=== PATIENT | male | born 1940 | race Caucasian/White ===

== ENCOUNTER 2023-08-16 12:56 | Emergency (ER) | payer MEDICARE, OTHER, SELFPAY ==
[2023-08-16] VITALS (25 sets, daily range): BP systolic 128–148; BP diastolic 80–117; PULSE 74–140; RESP 10–26; TEMP 36.6; O2SAT 82–98; BMI 23.8
--- NOTE | 2023-08-16 13:15 | ED_ITS ---
HPI - General Adult General Chief complaint: Chest Pain Stated complaint: CHEST PAIN Time Seen by Provider: 08/16/23 13:15 Source: patient and family Mode of arrival: Wheelchair Limitations: no limitations History of Present Illness HPI narrative: Patient is a 83-year-old male who is presenting to the ER today with chief complaint of centralized chest heaviness that lasted less than 30 minutes with no radiation into the jaw, neck, arms, or straight through to his back. Patient states he has a history of A-fib, also has a Watchman as well. Patient's son is at bedside, he is a good historian. Patient lives at home, patient was being picked up by his son to take him to physical therapy. Patient has been having falls recently. Patient hit his head approximately 5 days ago, patient has a hematoma to the frontal aspect of his head. No tenderness to palpation to the area. Patient only takes a baby aspirin, he no longer takes Plavix or blood thinners. Patient also has stopped taking his blood pressure medication, because he has been orthostatic and patient's blood pressure has been dropping when he stands up. Patient currently has no headache or neck pain. Patient currently has no chest pain or shortness of breath. No nausea or vomiting. Patient did fall approximately 4 to 5 days ago, no obvious injury from that. 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 No recent tr aveling no other acute complaints. Patient is typically in A-fib, All systems are negative except as noted/marked. All systems reviewed and otherwise negative. Nurses note and vital signs reviewed and patient is not hypoxic. General: The patient appears well and in no apparent distress. Patient is resting comfortably on cart. Patient is not toxic, lethargic, or listless patient looks cachectic, fatigued,. Very soft-spoken. Patient's Son is at bedside, he is excellent source of history skin: Warm, dry, no pallor noted. There is no rash noted. No petechiae, purpura. Head: Normocephalic, patient has a palpable hematoma 3 x 2 cm, 0.5 cm raised to the left forehead, not tender, soft, no pain to palpation. Eye: Normal conjunctiva, no drainage, EOMI. PERRL Ears, Nose, Mouth, and Throat: oral mucosa is moist. Nares patent. Mouth without vesicles. Cardiovascular: Irregular irregular Rate and Rhythm, no murmur, gallop, rub. Respiratory: Patient is in no distress, no accessory muscle use, lungs are clear to auscultation, no wheezing, rales or rhonchi Back: non-tender, no CVA tenderness bilaterally to percussion. No CT LS midline pain GI: no tenderness to palpation, no masses appreciated. No rebound, guarding, or rigidity noted. No distention Musculoskeletal: Patient has full range of motion of all of the extremities, no motor, sensory, or focal neurological deficits Neurological: A&O x4, normal speech Psychiatric: Cooperative Related Data Home Medications Medication Instructions Recorded Confirmed alprazolam 1 mg tablet,extended 1 mg PO Q24H 08/16/23 08/16/23 release 24 hr aspirin 81 mg tablet,delayed 81 mg PO DAILY 08/16/23 08/16/23 release atorvastatin 80 mg tablet 80 mg PO DAILY 08/16/23 08/16/23 donepezil 10 mg tablet 10 mg PO DAILY 08/16/23 08/16/23 escitalopram oxalate 10 mg tablet 10 mg PO DAILY 08/16/23 08/16/23 memantine 5 mg tablet 5 mg PO BID 08/16/23 08/16/23 quetiapine 25 mg tablet 50 mg PO .qhs 08/16/23 08/16/23 Allergies Allergy/AdvReac Type Severity Reaction Status Date / Time Sulfa (Sulfonamide Allergy Mild Verified 08/16/23 13:15 Antibiotics) Exam Constitutional Vital Signs, click to edit/add: Last Vital Signs Temp 97.9 F 08/16/23 12:59 Pulse 88 08/16/23 15:14 Resp 17 08/16/23 14:50 BP 140/80 08/16/23 15:14 Pulse Ox 94 L 08/16/23 14:50 O2 Del Method Room Air 08/16/23 12:59 Course Vital Signs Vital signs: Vital Signs Temperature 97.9 F 08/16/23 12:59 Pulse Rate 109 H 08/16/23 12:59 Respiratory Rate 16 08/16/23 12:59 Blood Pressure 140/90 08/16/23 12:59 Pulse Oximetry 97 08/16/23 12:59 Oxygen Delivery Method Room Air 08/16/23 12:59 Temperature 97.9 F 08/16/23 12:59 Pulse Rate 88 08/16/23 15:14 Respiratory Rate 17 08/16/23 14:50 Blood Pressure 140/80 08/16/23 15:14 Pulse Oximetry 94 L 08/16/23 14:50 Oxygen Delivery Method Room Air 08/16/23 12:59 Medical Decision Making MDM Narrative Medical decision making narrative: EKG shows chronic A-fib. Patient currently has no chest pain or shortness of breath. [address] Ramos. He agrees that patient may be discharged if 2 sets of troponins were negative, and patient is feeling better. Patient was orthostatic, patient will be given 1 L of IV fluid initially. Patient's systolic and diastolic both dropped 20/10 respectively, along with 40 point change in heart rate. After the first liter of IV fluid, orthostatics were repeated and patient's vital signs significant improved. Patient feels better after 1 L of IV fluid. Patient will be discharged increase fluids at home, follow-up with cardiology and PCP Critical care time 31 minutes exclusive from separate billable procedures that were performed. The following was considered in the determination of critical care but not limited to the level of medical decision making, intensive cardiac and/or respiratory monitoring, frequent vital sign monitoring, evaluation of laboratory studies, evaluation of radiographic studies, oxygen monitoring, and constant monitoring and speaking to family at bedside. Lab Data Labs: Lab Results 08/16/23 08/16/23 08/16/23 Range/Units 13:11 13:58 14:45 WBC 10.5 (4.0-11.0) 10^3/uL RBC 5.22 (4.70-6.10) 10^6/uL Hgb 15.6 (14.0-18.0) g/dL Hct 47.6 (42.0-54.0) % MCV 91.2 (80.0-94.0) fL MCH 29.9 (25.9-34.0) pg MCHC 32.8 (29.9-35.2) g/dL RDW 13.0 (11.0-15.0) % Plt Count 191 (150-450) 10^3/uL MPV 10.1 (9.5-13.5) fL Neut % (Auto) 65.7 (43.0-75.0) % Lymph % (Auto) 24.9 (20.5-60.0) % [place] % (Auto) 6.2 (1.7-12.0) % Eos % (Auto) 2.2 (0.9-7.0) % Baso % (Auto) 0.4 (0.2-2.0) % Neut # (Auto) 6.9 H (1.4-6.5) 10^3/uL Lymph # (Auto) 2.6 (1.2-3.8) 10^3/uL [place] # (Auto) 0.7 (0.3-0.8) 10^3/uL Eos # (Auto) 0.2 (0.0-0.7) 10^3/uL Baso # (Auto) 0.0 (0.0-0.1) 10^3/uL Abs Immat Gran (auto) 0.06 H (0.00-0.03) 10^3/uL Imm/Tot Granulo (auto) 0.6 H (0.0-0.5) % Sodium 138 (136-145) mmol/L Potassium 3.9 (3.5-5.1) mmol/L Chloride 101 (98-107) mmol/L Carbon Dioxide 29.6 (21.0-32.0) mmol/L Anion Gap 11.3 BUN 13.0 (7.0-18.0) mg/dL Creatinine 1.19 (0.70-1.30) mg/dL Est GFR ( Amer) >60 (>=60) Est GFR (Non-Af Amer) 58 L (>=60) BUN/Creatinine Ratio 10.9 Glucose 84 (74-106) mg/dL Calcium 9.3 (8.5-10.1) mg/dL Total Bilirubin 1.1 H (0.2-1.0) mg/dL AST 15 (15-37) U/L ALT 9 L (16-63) U/L Alkaline Phosphatase 82 (46-116) U/L Troponin I High Sens 5.6 5.9 (4.0-76.1) pg/mL Total Protein 7.0 (6.4-8.2) g/dL Albumin 2.5 L (3.4-5.0) g/dL Globulin 4.5 g/dL Albumin/Globulin Ratio 0.6 ECG Data Attestation: I personally reviewed and interpreted this ECG as follows: (EKG interpretation. Irregular irregular rhythm at 112 beats a minute. Left axis deviation. No acute ST elevation, nonspecific ST changes. Chronic A-fib) Discharge Plan Discharge Chief Complaint: Chest Pain Clinical Impression: Orthostatic hypotension, Chest pain, Dehydration Patient Disposition: Home, Self-Care Time of Disposition Decision: 15:52 Condition: Fair Prescriptions / Home Meds: No Action alprazolam 1 mg tablet extended release 24 hr 1 mg PO Q24H aspirin 81 mg tablet,delayed release (DR/EC) 81 mg PO DAILY atorvastatin 80 mg tablet 80 mg PO DAILY donepezil 10 mg tablet 10 mg PO DAILY escitalopram oxalate 10 mg tablet 10 mg PO DAILY memantine 5 mg tablet 5 mg PO BID quetiapine 25 mg tablet 50 mg PO .qhs Instructions: Chest Pain (ED), Dehydration (ED), Hypotension (ED), Dizziness (ED) Additional Instructions: Continue to increase fluids at home, Gatorade, Powerade, and water. Follow-up with PCP. I did speak to your occupational health coordinator, Dr. Ramos. He agrees if 2 sets of cardiac troponin enzymes are negative, and you are feeling better and has been asymptomatic in the ER, call the office to make an appointment to follow-up in the next week or 2. If symptoms continue return to ER. You were orthostatic hypotensive. 1 L of IV fluids has help correct this. Increase fluids at home Referrals: JC CARR [Primary Care Provider] - 1 week Stand Alone Forms: Portal Instructions
--- NOTE | 2023-08-16 13:26 | XR_ITS ---
The [address] [address] Patient Name: NETTE CAO MRN: [id number] date: 1940 Sex: M Assigned Patient Location: ED.MAIN Current Patient Location: ER Accession/Order Number: [id number] Exam Date: 08/16/2023 14:05 Report Date: 08/16/2023 14:21 At the request of: DUNIA TRIANA Procedure: XR chest 1V EXAM: XR chest 1V HISTORY: chest pain COMPARISON: 07/22/2021 and earlier. TECHNIQUE: AP portable upright chest x-ray. FINDINGS: Lungs clear except for small granuloma left lower lung field and minimal basilar scar atelectasis right lower chest. No consolidation or edema seen. Heart size normal for technique. 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 Cannot exclude aneurysmal dilatation of this portion of the aorta. A silhouette prominent accentuated by magnification. Appears increased from AP chest x-ray 11/23/2020. XR/XR chest 1V IMPRESSION: Lungs without acute process or infiltrate. Prominent descending thoracic aorta appears to be a chronic finding. Cannot exclude aortic dilatation/aneurysm in this area. If this is clinically suspected recommend CT. Cardiac silhouette mildly increased from previous. Electronically authenticated by: PIO NEAL Date: 08/16/2023 14:21
[2023-08-16 13:33] LABS: Basophils Percent Auto 0.4 % (0.2-2.0); Eosinophils Absolute Auto 0.2 10^3/uL (0.0-0.7); Eosinophils Percent Auto 2.2 % (0.9-7.0); Hematocrit 47.6 % (42.0-54.0); Hemoglobin 15.6 g/dL (14.0-18.0); Immature Granulocytes Abs Auto 0.06 10^3/uL (0.00-0.03); Immature Granulocytes Pct Auto 0.6 % (0.0-0.5); Lymphocytes Absolute Auto 2.6 10^3/uL (1.2-3.8); Lymphocytes Percent Auto 24.9 % (20.5-60.0); Mean Corpuscular HGB Conc 32.8 g/dL (29.9-35.2); Mean Corpuscular Hemoglobin 29.9 pg (25.9-34.0); Mean Corpuscular Volume 91.2 fL (80.0-94.0); Mean Platelet Volume 10.1 fL (9.5-13.5); Monocytes Absolute Auto 0.7 10^3/uL (0.3-0.8); Monocytes Percent Auto 6.2 % (1.7-12.0); Neutrophils Absolute Auto 6.9 10^3/uL (1.4-6.5); Neutrophils Percent Auto 65.7 % (43.0-75.0); Platelet Count 191 10^3/uL (150-450); Red Blood Count 5.22 10^6/uL (4.70-6.10); White Blood Count 10.5 10^3/uL (4.0-11.0)
[2023-08-16] MEDS: 0.9 % SODIUM CHLORIDE 1,000 ML 1000 ML IV (14:19)
[2023-08-16 14:21] LABS: Alanine Aminotransferase 9 U/L (16-63); Albumin Globulin Ratio 0.6; Albumin Level 2.5 g/dL (3.4-5.0); Alkaline Phosphatase 82 U/L (46-116); Anion Gap 11.3; Aspartate Amino Transferase 15 U/L (15-37); BUN Creatinine Ratio 10.9; Bilirubin Total 1.1 mg/dL (0.2-1.0); Calcium 9.3 mg/dL (8.5-10.1); Carbon Dioxide 29.6 mmol/L (21.0-32.0); Chloride 101 mmol/L (98-107); Estimated GFR (African America >60 (>=60); Estimated GFR (Non-African Ame 58 (>=60); Globulin 4.5 g/dL; Glucose 84 mg/dL (74-106); Potassium 3.9 mmol/L (3.5-5.1); Sodium 138 mmol/L (136-145); Troponin I High Sensitivity 5.6 pg/mL (4.0-76.1)
--- NOTE | 2023-08-16 15:00 | ECG_ITS ---
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1940 Requested By: JC CARR Order Number: [id number] Reading MD: CARLOS OSCAR Measurements Intervals [place] Rate: 112 P: -12144 [place]: -16889 QRS: -17 QRSD: 82 T: 4 QT: 316 QTc: 382 Interpretive Statements 88655 Atrial fibrillation with rapid ventricular response [address] depression, probably digitalis effect [address] & Twave abnormality, probably digitalis effect 5233 Voltage criteria for LVH 9150 abnormal ECG Compared to ECG 11/23/2020 12:00:08 ST (T wave) deviation now present Early repolarization no longer present Left-axis deviation no longer present Electronically Signed On 08-17-2023 6:06:28 EST by CARLOS OSCAR
[2023-08-16 15:15] LABS: Troponin I High Sensitivity 5.9 pg/mL (4.0-76.1)
== END 2023-08-16 16:12 | disposition home or self-care (01) ==
PROVIDERS: Emergency Provider Emergency Medicine; PCP Family Medicine
DX: E86.0 Dehydration (principal); I95.1 Orthostatic hypotension; R07.9 Chest pain, unspecified; Z91.81 History of falling; Z79.82 Long term (current) use of aspirin; I48.20 Chronic atrial fibrillation, unspecified
CPT/HCPCS: 36415; 71045; 80053; 84484; 85025; 93005; 96360; 99285

== ENCOUNTER 2023-08-22 12:21 | Outpatient (OUT) | payer MEDICARE, OTHER, SELFPAY ==
[2023-08-22 12:53] LABS: Basophils Absolute Auto 0.1 10^3/uL (0.0-0.1); Basophils Percent Auto 0.5 % (0.2-2.0); Eosinophils Absolute Auto 0.5 10^3/uL (0.0-0.7); Eosinophils Percent Auto 3.8 % (0.9-7.0); Hematocrit 44.3 % (42.0-54.0); Hemoglobin 14.3 g/dL (14.0-18.0); Immature Granulocytes Abs Auto 0.13 10^3/uL (0.00-0.03); Immature Granulocytes Pct Auto 1.1 % (0.0-0.5); Lymphocytes Absolute Auto 2.4 10^3/uL (1.2-3.8); Lymphocytes Percent Auto 20.4 % (20.5-60.0); Mean Corpuscular HGB Conc 32.3 g/dL (29.9-35.2); Mean Corpuscular Hemoglobin 29.5 pg (25.9-34.0); Mean Corpuscular Volume 91.5 fL (80.0-94.0); Mean Platelet Volume 8.7 fL (9.5-13.5); Monocytes Absolute Auto 0.7 10^3/uL (0.3-0.8); Monocytes Percent Auto 6.2 % (1.7-12.0); Neutrophils Absolute Auto 8.1 10^3/uL (1.4-6.5); Platelet Count 384 10^3/uL (150-450); Red Blood Count 4.84 10^6/uL (4.70-6.10); Red Cell Distribution Width 13.2 % (11.0-15.0); White Blood Count 11.9 10^3/uL (4.0-11.0)
== END 2023-08-22 12:22 | disposition home or self-care (01) ==
LOC: LAB 12:23
PROVIDERS: PCP Family Medicine; Visit Provider Family Medicine
DX: R53.83 Other fatigue (principal); R63.4 Abnormal weight loss
CPT/HCPCS: 36415; 85025

== ENCOUNTER 2023-08-23 16:49 | Observation (INO) | payer MEDICARE, OTHER, SELFPAY ==
[2023-08-23 16:55] VITALS: BP 145/109; PULSE 83; RESP 18; TEMP 36.8; O2SAT 91; BMI 24.3
--- NOTE | 2023-08-23 17:29 | ECG_ITS ---
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
[2023-08-23] MEDS: 0.9 % SODIUM CHLORIDE 1,000 ML 1000 ML IV (17:42)
[2023-08-23 17:43] VITALS: PULSE 100; RESP 30
[2023-08-23 17:59] LABS: Basophils Absolute Auto 0.1 10^3/uL (0.0-0.1); Basophils Percent Auto 0.8 % (0.2-2.0); Eosinophils Absolute Auto 0.3 10^3/uL (0.0-0.7); Eosinophils Percent Auto 4.4 % (0.9-7.0); Hematocrit 41.4 % (42.0-54.0); Hemoglobin 13.4 g/dL (14.0-18.0); Immature Granulocytes Abs Auto 0.12 10^3/uL (0.00-0.03); Immature Granulocytes Pct Auto 1.5 % (0.0-0.5); Lymphocytes Absolute Auto 1.8 10^3/uL (1.2-3.8); Lymphocytes Percent Auto 23.7 % (20.5-60.0); Mean Corpuscular HGB Conc 32.4 g/dL (29.9-35.2); Mean Corpuscular Hemoglobin 29.5 pg (25.9-34.0); Mean Corpuscular Volume 91.2 fL (80.0-94.0); Mean Platelet Volume 8.6 fL (9.5-13.5); Monocytes Absolute Auto 0.5 10^3/uL (0.3-0.8); Monocytes Percent Auto 6.9 % (1.7-12.0); Neutrophils Absolute Auto 4.9 10^3/uL (1.4-6.5); Neutrophils Percent Auto 62.7 % (43.0-75.0); Platelet Count 318 10^3/uL (150-450); Red Blood Count 4.54 10^6/uL (4.70-6.10); Red Cell Distribution Width 13.1 % (11.0-15.0); White Blood Count 7.8 10^3/uL (4.0-11.0)
[2023-08-23 18:07] LABS: Bilirubin Urine SMALL (NEGATIVE); Blood Urine TRACE-I (NEGATIVE); Clarity Urine CLEAR (CLEAR); Color Urine YELLOW (YELLOW); Glucose Urine UA NEGATIVE (NEGATIVE); Ketones Urine TRACE mg/dL (NEGATIVE); Leukocyte Esterase Urine NEGATIVE (NEGATIVE); Nitrite Urine NEGATIVE (NEGATIVE); Protein Urine 100 mg/dL (NEG/TRACE)
--- NOTE | 2023-08-23 18:12 | XR_ITS ---
The [address] [address] Patient Name: NETTE CAO MRN: [id number] date: 1940 Sex: M Assigned Patient Location: ER Current Patient Location: ER Accession/Order Number: [id number] Exam Date: 08/23/2023 18:00 Report Date: 08/23/2023 18:26 At the request of: ANOOP ERICKSON Procedure: XR chest 1V EXAM: XR chest 1V HISTORY: Weak. COMPARISON: Portable chest radiograph dated 08/16/2023. TECHNIQUE: AP upright portable chest radiograph performed. FINDINGS: The patient is rotated to the right. There is stable mild prominence of the cardiac silhouette. The mediastinal silhouette is slightly more prominent which most likely is accentuated by rotation of the patient to the right. There is stable moderate atheromatous calcification at the aortic arch and a stable tortuous course of the descending thoracic aorta. There is no consolidation, infiltrate, pleural effusion or pulmonary vascular congestion. There is a nipple shadow projecting over the left lower chest. There is no pneumothorax. The bony structures are osteopenic. There is no acute osseous abnormality. XR/XR chest 1V IMPRESSION: There is no acute cardiopulmonary process. Electronically authenticated by: PATTIE KAY Date: 08/23/2023 18:26
--- NOTE | 2023-08-23 18:12 | CT_ITS ---
The [address] [address] Patient Name: NETTE CAO MRN: [id number] date: 1940 Sex: M Assigned Patient Location: ER Current Patient Location: [facility] Accession/Order Number: [id number] Exam Date: 08/23/2023 18:00 Report Date: 08/23/2023 19:00 At the request of: ANOOP ERICKSON Procedure: CT head/brain wo con CT OF THE BRAIN WITHOUT CONTRAST: 08/23/2023 6:00 PM EDT HISTORY: Fell and hit head. TECHNIQUE: Contiguous axially collimated images were obtained through the intracranial compartment, from the vertex through the foramen magnum. Coronal and Sagittal reformatted images were prepared on a separate workstation and reviewed on the PACS for anatomic correlation. No contrast was administered. This CT exam was performed using one or more of the following dose reduction techniques: Automated exposure control, adjustment of the mA and/or kV according to patient size, or use of iterative reconstruction technique. Thin section coronal and sagittal images were reconstructed from the axial data set. All images were reviewed and interpreted. COMPARISON: CT brain without 11/23/2020 FINDINGS: There is subtle punctate hyperdensity posterior left occipital lobe which may reflect some subtle petechial cortical hemorrhage. Follow-up. This is not causing any significant edema or mass effect. No intra-axial or extra-axial hemorrhage seen elsewhere. To the extent of evaluated with noncontrast technique, there is no mass lesion appreciated. There is no mass-effect or shift of midline structures. There is global brain volume loss with prominence of the ventricles and CSF spaces. There is no evidence of hydrocephalus. There is no effacement of the basal cisterns. No evidence of acute ischemia. Patchy white matter low attenuation is nonspecific, but likely related to chronic small vessel ischemic change. There is no evidence of a lacunar infarct. The posterior fossa, brain stem, and fourth ventricle are normal. There is no tonsillar ectopy. Changes of previous extensive calvarial surgery with multiple stefani holes, several in the right 1 left frontal with overlying bone anchor. Correlate with history. Calvarium otherwise intact and unremarkable. No acute fracture. Normal bone mineralization.. The mastoid air cells are well-aerated. The paranasal sinuses are normally aerated. CT/CT head/brain wo con IMPRESSION: 1. Subtle punctate hyperdensity cortex posterior left occipital lobe possibly related to a subtle acute petechial hemorrhage in light of trauma. Recommend follow-up. 2. Multiple remote bilateral frontal stefani holes. No acute osseous findings. 3. Stable chronic senescent changes compared with 11/23/2020 study. Electronically authenticated by: PADILLA BAJWA Date: 08/23/2023 19:00
[2023-08-23 18:16] LABS: Anion Gap 10.3; BUN Creatinine Ratio 13.2; Calcium 8.9 mg/dL (8.5-10.1); Carbon Dioxide 30.8 mmol/L (21.0-32.0); Chloride 100 mmol/L (98-107); Estimated GFR (African America >60 (>=60); Estimated GFR (Non-African Ame >60 (>=60); Glucose 87 mg/dL (74-106); Potassium 4.1 mmol/L (3.5-5.1); Sodium 137 mmol/L (136-145); Troponin I High Sensitivity <4.0 pg/mL (4.0-76.1)
[2023-08-23 18:17] LABS: Bacteria Urine TRACE #/HPF (NONE SEEN); Cast Seen? SEEN #/LPF (NONE SEEN); Crystals Seen? None Seen #/HPF (None Seen); Hyaline Casts Urine RARE; Mucus Urine TRACE (NONE SEEN); RBC Urine 0-2 #/HPF (0-2); Squamous Epithelial Cell Urine RARE #/LPF (NONE/RARE); WBC Urine NONE SEEN #/HPF (NONE SEEN)
[2023-08-23 18:18] LABS: Influenza Virus A Antigen Negative; Influenza Virus B Antigen Negative; Internal Control Within Normal Limits; SARS-CoV-2 Ag NEGATIVE (NEGATIVE)
[2023-08-23 18:30] VITALS: PULSE 101; RESP 16; O2SAT 92
[2023-08-23 18:40] VITALS: BP 137/104; PULSE 97; RESP 21; O2SAT 93
--- NOTE | 2023-08-23 18:56 | ED.GENADUL1 ---
HPI - General Adult General Chief complaint: Urogenital-Male Stated complaint: POSS UTI LEVEL BLOOD COUNT Time Seen by Provider: 08/23/23 16:54 Source: patient and family Mode of arrival: walk-in Limitations: no limitations History of Present Illness HPI narrative: 83-year-old male presents for generalized weakness. He was brought in by his son who gives virtually all of the history. There was concerned about UTI. He has not been eating or drinking and has been weak. The patient lives by himself but the family looks in on him. He does not seem to have any physical complaints other than feeling weak. Related Data Home Medications Medication Instructions Recorded Confirmed alprazolam 1 mg tablet,extended 1 mg PO Q24H 08/16/23 08/23/23 release 24 hr aspirin 81 mg tablet,delayed 81 mg PO DAILY 08/16/23 08/23/23 release donepezil 10 mg tablet 10 mg PO DAILY 08/16/23 08/23/23 escitalopram oxalate 10 mg tablet 10 mg PO DAILY 08/16/23 08/23/23 aripiprazole 5 mg tablet 5 mg PO DAILY 08/23/23 08/23/23 Allergies Allergy/AdvReac Type Severity Reaction Status Date / Time Sulfa (Sulfonamide Allergy Mild Verified 08/23/23 17:03 Antibiotics) Review of Systems ROS Narrative A ten point review of systems is negative except as noted above. PFSH PFSH Social History Smoking status: Former smoker Exam Narrative Exam Narrative: Nurses note and vital signs reviewed and patient is not hypoxic. General: The patient appears well and in no apparent distress. Patient is resting comfortably on cart. He appears weak Skin: Warm, dry, no pallor noted. There is no rash noted. Head: Normocephalic, atraumatic Eye: Normal conjunctiva, no drainage Ears, Nose, Mouth, and Throat: oral mucosa is slightly dry. Nares patent. Cardiovascular: Regular Rate and Rhythm Respiratory: Patient is in no distress, no accessory muscle use, lungs are clear to auscultation, no wheezing, rales or rhonchi Back: non-tender GI: Soft and nontender Musculoskeletal: The patient has no evidence of calf tenderness, no pitting edema, symmetrical pulses noted bilaterally Neurological: A&O, normal speech Psychiatric: Cooperative Constitutional Vital Signs, click to edit/add: Last Vital Signs Temp 98.3 F 08/23/23 16:55 Pulse 83 08/23/23 16:55 Resp 18 08/23/23 16:55 BP 145/109 H 08/23/23 16:55 Pulse Ox 91 L 08/23/23 16:55 O2 Del Method Room Air 08/23/23 16:55 Course Vital Signs Vital signs: Vital Signs Temperature 98.3 F 08/23/23 16:55 Pulse Rate 83 08/23/23 16:55 Respiratory Rate 18 08/23/23 16:55 Blood Pressure 145/109 H 08/23/23 16:55 Pulse Oximetry 91 L 08/23/23 16:55 Oxygen Delivery Method Room Air 08/23/23 16:55 Temperature 98.3 F 08/23/23 16:55 Pulse Rate 83 08/23/23 16:55 Respiratory Rate 18 08/23/23 16:55 Blood Pressure 145/109 H 08/23/23 16:55 Pulse Oximetry 91 L 08/23/23 16:55 Oxygen Delivery Method Room Air 08/23/23 16:55 Medical Decision Making MDM Narrative Medical decision making narrative: He does not have a UTI but has generalized weakness. He is being given IV fluids and will be admitted for observation. Differential Diagnosis Differential Diagnosis: UTI, dehydration, COVID Lab Data Lab results reviewed: Yes I reviewed the patient's lab results Labs: Lab Results 08/23/23 08/23/23 08/23/23 Range/Units 17:35 17:40 17:56 WBC 7.8 (4.0-11.0) 10^3/uL RBC 4.54 L (4.70-6.10) 10^6/uL Hgb 13.4 L (14.0-18.0) g/dL Hct 41.4 L (42.0-54.0) % MCV 91.2 (80.0-94.0) fL MCH 29.5 (25.9-34.0) pg MCHC 32.4 (29.9-35.2) g/dL RDW 13.1 (11.0-15.0) % Plt Count 318 (150-450) 10^3/uL MPV 8.6 L (9.5-13.5) fL Neut % (Auto) 62.7 (43.0-75.0) % Lymph % (Auto) 23.7 (20.5-60.0) % [place] % (Auto) 6.9 (1.7-12.0) % Eos % (Auto) 4.4 (0.9-7.0) % Baso % (Auto) 0.8 (0.2-2.0) % Neut # (Auto) 4.9 (1.4-6.5) 10^3/uL Lymph # (Auto) 1.8 (1.2-3.8) 10^3/uL [place] # (Auto) 0.5 (0.3-0.8) 10^3/uL Eos # (Auto) 0.3 (0.0-0.7) 10^3/uL Baso # (Auto) 0.1 (0.0-0.1) 10^3/uL Abs Immat Gran (auto) 0.12 H (0.00-0.03) 10^3/uL Imm/Tot Granulo (auto) 1.5 H (0.0-0.5) % Sodium 137 (136-145) mmol/L Potassium 4.1 (3.5-5.1) mmol/L Chloride 100 (98-107) mmol/L Carbon Dioxide 30.8 (21.0-32.0) mmol/L Anion Gap 10.3 BUN 15.0 (7.0-18.0) mg/dL Creatinine 1.14 (0.70-1.30) mg/dL Est GFR ( Amer) >60 (>=60) Est GFR (Non-Af Amer) >60 (>=60) BUN/Creatinine Ratio 13.2 Glucose 87 (74-106) mg/dL Calcium 8.9 (8.5-10.1) mg/dL Troponin I High Sens <4.0 L (4.0-76.1) pg/mL Urine Color Yellow (YELLOW) Urine Clarity Clear (CLEAR) Urine pH 6.0 (5.0-9.0) Ur Specific [place] 1.020 (1.005-1.025) Urine Protein 100 A (NEG/TRACE) mg/dL Urine Glucose (UA) Negative (NEGATIVE) mg/dL Urine Ketones Trace A (NEGATIVE) mg/dL Urine Occult Blood Trace-i (NEGATIVE) Urine Nitrite Negative (NEGATIVE) Urine Bilirubin Small A (NEGATIVE) Urine Urobilinogen 2.0 A (0.2-1.0) EU/dL Ur Leukocyte Esterase Negative (NEGATIVE) Urine RBC 0-2 (0-2) #/HPF Urine WBC None seen (NONE SEEN) #/HPF Ur Squamous Epith Cells Rare (NONE/RARE) #/LPF Urine Crystals None seen (None Seen) #/HPF Urine Bacteria Trace A (NONE SEEN) #/HPF Urine Casts Seen A (NONE SEEN) #/LPF Hyaline Casts Rare Urine Mucus Trace A (NONE SEEN) Influenza Type A Ag Negative Influenza Type B Ag Negative SARS-CoV-2 Ag (CV2AG) Negative (NEGATIVE) Imaging Data Chest x-ray: Radiologist's impression: ITS Impressions Chest X-Ray 08/23/23 18:12 IMPRESSION: There is no acute cardiopulmonary process. Electronically authenticated by: PATTIE KAY Date: 08/23/2023 18:26 ECG Data Attestation: I personally reviewed and interpreted this ECG as follows: (EKG on my interpretation shows atrial fibrillation) Discharge Plan Discharge Chief Complaint: Urogenital-Male Clinical Impression: Generalized weakness Patient Disposition: Admitted as Observation Time of Disposition Decision: 18:55 Condition: Good
[2023-08-23 19:00] VITALS: BP 146/97; PULSE 88; RESP 19; O2SAT 92
[2023-08-23 19:38] VITALS: BP 156/83; PULSE 82; RESP 16; TEMP 36.6; O2SAT 90
--- OUTSIDE RECORDS SUMMARY | 2023-08-23 19:56 | XMS_ITS | CCD ---
Author Name Unknown Address [id number] [place] [address] Organization [facility] Care Team Providers Care Director Of Casework Department Name Role Phone Cedric Carr Unavailable Mohamud Ruth Unavailable DEO RATUL Unavailable Unavailable CEDRIC CARR Unavailable Unavailable Deo Ratul Unavailable [phone] Cedric Carr Primary Care Provider Mohamud Ruth Unavailable [phone] Deo Ratul Unavailable Cedric Carr Primary Care Provider [phone] Mohamud Ruth Unavailable Cedric Carr Primary Care Provider AUSTEN JEFF Admitting Unavailab AUSTEN Abraham Attending Unavailab le CEDRIC CARR Primary Care Unavailable AUSTEN JEFF Admitting Unavailab AUSTEN Abraham Attending Unavailab le CEDRIC CARR Primary Care Unavailable ANGELA PATEL Attending Unavailable CEDRIC CARR Primary Care Unavailable Cedric Carr Primary Care Provider Deo Ratul Unavailable Cedric Carr Primary Care Provider KYLE RUTH Referring Unavailable CEDRIC CARR Primary Care Unavailable KYLE RUTH Referring Unavailable CEDRIC CARR Primary Care Unavailable VIGESAA, KYLE S Referring Unavailable HEMEYOMAIRA, CEDRIC Andrew Primary Care Unavailable VIGESAA, KYLE S Referring Unavailable BRUNO, CEDRIC J Primary Care Unavailable SNEHAL, ENOCH Admitting Unavailable SNEHAL, ENOCH Attending Unavailable BRUNO, CEDRIC Primary Care Unavailable BRAEDEN SCHAEFER Referring Unavailable [place] Procedure Practitioner Unavailab EVELYN Gunderson Surgeon Unavailable TORRIE, UDAY Attending Unavailable TORRIE, UDAY Consulting Unavailable TORRIE, UDAY Admitting Unavailable HEMEYER, DR GREENE Primary Care Unavailable HEMEYER, DR GREENE Primary Care Unavailable ZIEBER, DR BOY Bryan Consulting Unavailable MOUKARBEL, DR CAO Attending Unavailable MOUKARBEL, DR CAO Admitting Unavailable MOUKARBEL, DR CAO Consulting Unavailable TORRIE, UDAY Attending Unavailable TORRIE, UDAY Consulting Unavailable TORRIE, UDAY Admitting Unavailable HEMEYER, DR GREENE Primary Care Unavailable HEMEYER, DR GREENE Primary Care Unavailable MOUKARBEL, DR CAO Attending Unavailable MOUKARBEL, DR CAO Admitting Unavailable TORRIE, UDAY Attending Unavailable MOUKARBAMARJIT, KILEY Attending Unavailable Keirayer Cedric FIGUEREDO Primary Care Provider Cedric Carr MD Unavailable CEDRIC CARR Attending Unavailable TISH YAÑEZ Attending Unavailable BRUNO, CEDRIC Andrew Referring Unavailable GERMAINE CONCEPCION Attending Unavailable CEDRIC CARR Referring Unavailable TISH YAÑEZ Attending Unavailable CEDRIC CARR Referring Unavailable CEDRIC CARR Attending Unavailable Allergies Allergy Classification Reported Allergen(s) Allergy Type Date of Onset Reaction(s) Facility Amino Acids (1 source) Amino Acids Drug Allergy 1 [facility] Repository Sulfonamides (antibiotic) (1 source) Sulfonamides (Antibiotic) Drug Allergy 1 [facility] Rep[facility] (13 sources) Sulfonamides (Antibiotic); Translations: [SULFA (SULFONAMIDE ANTIBIOTICS)] Propensity to adverse reactions to drug 8 Anaphylaxis [facility] (8 sources) Sulfonamides (Antibiotic) Propensity to adverse reactions to drug 6 Anaphylaxis [place], [place] (2 sources) Amino Acids Drug Allergy 0 [facility] [place] [place] (2 sources) Lisinopril Drug Allergy 0 Other (See Comments) [place], [place] (1 source) Amino Acids Drug Allergy [facility] Repository (2 sources) Sulfonamides (Antibiotic) Drug allergy (disorder) 0 [facility] (1 source) SULFOIL; Translations: [SULFOIL] Propensity to adverse reactions to drug (disorder) 3 [facility] Repository (3 sources) Lisinopril Allergy to substance 3 [facility] (3 sources) Sulfonamides (Antibiotic) Drug Allergy 3 [facility] Healthcare Medications Current Medications Medication Drug Class(es) Dates Sig (Normalized) Sig (Original) acetaminophen 500 mg oral tablet (7 sources) take 1 tablet by mouth every six hours as needed acetaminophen (TYLENOL) 500 MG tablet Take 500 mg by mouth every 6 (six) hours as needed for pain. 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 30 tablet 5 04/13/2023 10/10/2023 Active amLODIPine 5 mg oral tablet (8 sources) Dihydropyridine Calcium Channel Geoff Start: 04-28-2020 take 1 tablet by mouth once daily amLODIPine (NORVASC) 5 MG tablet TAKE ONE TABLET BY MOUTH ONCE DAILY 90 tablet 3 04/28/2020 Active Start: 04-16-2019 take 1 tablet by david th once daily amLODIPine (NORVASC) 5 MG tablet Take 1 tablet by mouth daily 90 tablet 3 04/16/2019 Active ARIPiprazole 5 mg oral tablet (5 sources) Atypical Antipsychotic Start: 07-27-2023 End: 10-25-2023 take 0.5 tablet by mouth at bedtime ARIPiprazole (Abilify) 5 MG tablet Indications: Vascular dementia without behavioral disturbance (CMS/HCC) , Moderate major depression (CMS/HCC) Take 0.5 tablets (2.5 mg) by mouth at bedtime 0 07/27/2023 10/25/2023 Active Start: 06-16-2023 End: 09-14-2023 take 1 tablet by mouth at bedtime ARIPiprazole (Abilify) 5 MG tablet Indications: Vascular dementia without behavioral disturbance (CMS/HCC) , Moderate major depression (CMS/HCC) Take 1 tablet (5 mg) by mouth at bedtime 90 tablet 0 06/16/2023 07/27/2023 Discontinued (Reorder) aspirin 81 mg delayed release oral tablet (16 sources) Platelet Aggregation Inhibitor, Nonsteroidal Anti-inflammatory Drug Start: 04-13-2023 End: 04-12-2024 take 1 tablet by mouth in the morning aspirin (ASPIR) 81 MG EC tablet Indications: White matter disease Take 1 tablet (81 mg) by mouth in the morning. 30 tablet 11 04/13/2023 04/12/2024 Active take 1 tablet by mouth once rafy y aspirin 81 MG EC tablet Take 81 mg by mouth daily . 0 Active cholecalciferol 1000 unt oral capsule (16 sources) Vitamin D take 1 capsule by mouth once daily cholecalciferol, vitamin D3, (Vitamin D3) 1,000 unit capsule Take 1,000 Units by mouth daily . 0 Active take 5 tablets by mo uth once daily vitamin D3 (CHOLECALCIFEROL) 400 UNITS TABS tablet Take 2,000 Units by mouth daily 0 Active End: 04-06-2018 take 2 capsules by mouth once daily cholecalciferol, vitamin D3, (VITAMIN D3) 1,000 unit capsule Take 2,000 Units by mouth daily. 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 30 tablet 5 04/13/2023 10/10/2023 Active fexofenadine hydrochloride 180 mg oral tablet (3 sources) Histamine-1 Receptor Antagonist take 1 tablet by mouth once daily fexofenadine (Nicole Allergy) 180 MG tablet Take 180 mg by mouth 1 (one) time each day at the same time. 0 Active hydrALAZINE hydrochloride 25 mg oral tablet (3 sources) Arteriolar Vasodilator take 1 tablet by mouth in the morning hydrALAZINE (Apresoline) 25 MG tablet Take 25 mg by mouth in the morning and 25 mg before bedtime. 0 Active hydrOXYzine hydrochloride 25 mg oral tablet (7 sources) Antihistamine take 1 tablet by mouth every eight hours as needed for anxiety hydrOXYzine HCl (Atarax) 25 MG tablet Take 25 mg by mouth every 8 (eight) hours if needed for anxiety. 0 Active take 1 tablet by mouth twice asad ly hydrOXYzine (ATARAX) 10 MG tablet Take 10 mg by mouth 2 times daily 0 Active memantine hydrochloride 5 mg oral tablet (3 sources) W-pgpsaf-E-aspartate Receptor Antagonist Start: 05-02-2023 take 1 tablet by mouth in the morning memantine (Namenda) 5 MG tablet Indications: Vascular dementia without behavioral disturbance (CMS/HCC) Take 1 tablet (5 mg) by mouth in the morning and 1 tablet (5 mg) before bedtime. 60 tablet 0 05/02/2023 Active metoprolol tartrate 25 mg oral tablet (3 sources) beta-Adrenergic Geoff take 1 tablet by mouth in the morning metoprolol tartrate (Lopressor) 25 MG tablet Take 25 mg by mouth in the morning and 25 mg before bedtime. 0 Active mirtazapine 15 mg oral tablet (4 sources) take 1 tablet by mouth once daily mirtazapine (REMERON) 15 MG tablet Take 15 mg by mouth nightly 0 Active Multiple Vitamin (Multi-Vitamin) tablet (3 sources) take 1 tablet by mouth in the morning Multiple Vitamin (Multi-Vitamin) tablet Take 1 tablet by mouth in the morning. 0 Active MULTIPLE VITAMIN PO (8 sources) take 1 tablet by mouth once daily MULTIPLE VITAMIN PO Take 1 tablet by mouth daily 0 Active multivitamin (multivitamin) per tablet (5 sources) take 1 tablet by mouth once daily multivitamin (multivitamin) per tablet Take 1 tablet by mouth daily. 0 Active Multivitamin Tablet (6 sources) take 1 tablet by mouth once daily multivitamin (multivitamin) per tablet Take 1 tablet by mouth daily. Active 24 hr venlafaxine 75 mg extended release oral capsule (7 sources) Serotonin and Norepinephrine Reuptake Inhibitor take 1 capsule by mouth once daily venlafaxine (EFFEXOR-XR) 75 MG 24 hr capsule Take 75 mg by mouth daily . 0 Active take 1 tablet by david th three times daily venlafaxine (EFFEXOR) 75 MG tablet Take 75 mg by mouth 3 times daily 0 Active Completed/Discontinued Medications Medication Drug Class(es) Dates Sig (Normalized) Sig (Original) apixaban 5 mg oral tablet (5 sources) Factor Xa Inhibitor Start: 02-01-2018 End: 04-08-2018 take 1 tablet by mouth twice daily apixaban (ELIQUIS) 5 mg Tab Take 1 (one) tablet (5 mg total) by mouth 2 (two) times a day. 90 tablet 0 02/22/2018 04/06/2018 Discontinued atorvastatin 10 mg oral tablet (20 sources) HMG-CoA Reductase Inhibitor Start: 02-23-2018 End: 02-22-2018 take 2 tablets by mouth once asad ly atorvastatin (LIPITOR) 10 MG tablet Take 20 mg by mouth daily . 0 Active take 1 tablet by mouth once rafy y atorvastatin (LIPITOR) 20 MG tablet Take 20 mg by mouth daily 0 Active take 1 tablet by mouth once rafy y atorvastatin (LIPITOR) 10 MG tablet Take 10 mg by mouth daily. 0 Active cholecalciferol 3775 unt / folic acid 1 mg oral capsule (3 sources) Vitamin D End: 03-28-2019 vitamin D3-folic acid 3,775 unit- 1 mg cap Take 1,000 Units by mouth . 0 03/28/2019 Discontinued (Formulary change) citalopram 10 mg oral tablet (7 sources) Serotonin Reuptake Inhibitor Start: 02-23-2018 End: 02-22-2018 take 1 tablet by mouth once rafy y citalopram (CELEXA) 10 MG tablet Take 10 mg by mouth daily. Active fenofibrate 54 mg oral table t (20 sources) Peroxisome Proliferator Receptor alpha Agonist Start: 02-23-2018 End: 02-22-2018 take 1 tablet by david th once daily at mealtime fenofibrate (TRICOR) 48 MG tablet Take 4 8 mg by mouth daily Give with food . 0 Active 50 ml fentaNYL 0.05 mg/ml injection (2 sources) Opioid Agonist Start: 04-06-2018 End: 04-06-2018 fentaNYL (SUBLIMAZE) injection Start: 02-22-2018 End: 02-22-2018 flecainide acetate 100 mg or al tablet (20 sources) Antiarrhythmic Start: 02-22-2018 End: 02-22-2018 take 1 tablet by mouth twice asad ly flecainide (TAMBOCOR) 100 MG tablet Take 100 mg by mouth 2 (two) times a day. 0 Active hydroCHLOROthiazide 25 mg or al tablet (20 sources) Thiazide Diuretic Start: 02-23-2018 End: 02-22-2018 take 2 capsules by mouth once da javan hydroCHLOROthiazide (MICROZIDE) 12.5 mg capsule Take 25 mg by mouth daily . 0 Active take 1 tablet by mouth once rafy y hydrochlorothiazide (HYDRODIURIL) 25 MG tablet Take 25 mg by mouth daily 0 Active labetalol hydrochloride 5 mg/ml injectable solution (1 source) beta-Adrenergic Geoff Start: 02-22-2018 End: 02-22-2018 lidocaine hydrochloride 20 mg/ml mucous membrane topical solution (1 source) Antiarrhythmic, Amide Local Anesthetic Start: 04-06-2018 End: 04-06-2018 lidocaine (XYLOCAINE) 2 % viscous solution lisinopril 20 mg oral tablet (19 sources) Angiotensin Converting Enzyme Inhibitor Start: 02-23-2018 End: 02-22-2018 take 1 tablet by mouth in the mo rning lisinopril 5 MG tablet Take 5 mg by mouth in the morning. 0 Active take 2 tablets by mouth once asad ly lisinopril (PRINIVIL,ZESTRIL) 20 MG tablet Take 40 mg by mouth daily . 0 Active take 1 tablet by mouth once rafy y lisinopril (PRINIVIL;ZESTRIL) 40 MG tablet Take 40 mg by mouth daily 0 Active 2 ml midazolam 1 mg/ml injection (1 source) Benzodiazepine Start: 04-06-2018 End: 04-06-2018 midazolam (VERSED) injection naloxone (NARCAN) injection 0.1 mg (1 source) Start: 02-22-2018 End: 02-22-2018 naloxone (NARCAN) injection 0.1 mg 2 ml ondansetron 2 mg/ml injection (1 source) Serotonin-3 Receptor Antagonist Start: 02-22-2018 End: 02-22-2018 take 4 mg intravenous route every six hours as needed Perflutren Lipid Microspheres Syringe 10 Ml (Cmp) (1 source) Contrast Agent for Ultrasound Imaging Start: 02-22-2018 End: 02-22-2018 perflutren lipid microspheres (DEFINITY) 0.143 mg/mL solution 0-10 mL of mixture 1000 ml sodium chloride 9 mg/ml injection (4 sources) Start: 04-06-2018 End: 04-06-2018 sodium chloride 0.9% (NS) Start: 02-22-2018 End: 02-22-2018 Problems Active Problems Problem Classification Problem Date Documented Date Episodic/Chronic Acute cerebrovascular disease (20 sources) Hematoma of subdural space of neuraxis; Translations: [Cerebrovascular accident] Onset: 12-26-2015 Resolved: 09-03-2019 03-31-2016 Chronic Acute myocardial infarction (3 sources) Acute non-ST segment elevation myocardial infarction; Translations: [Non-ST elevation (NSTEMI) myocardial infarction] Onset: 12-29-2020 05-16-2023 Chronic Adjustment disorders (3 sources) Acute situational disturbance; Translations: [Adjustment disorder, unspecified] Onset: 03-07-2023 03-07-2023 Chronic Anxiety disorders (3 sources) Generalized anxiety disorder; Translations: [Generalized anxiety disorder] Onset: 03-07-2023 03-07-2023 Chronic Cardiac dysrhythmias (20 sources) Paroxysmal atrial fibrillation; Translations: [Chronic atrial fibrillation] Onset: 12-26-2015 01-18-2018 Chronic Coronary atherosclerosis and other heart disease (11 sources) Atherosclerotic heart disease of minto coronary artery without angina pectoris; Translations: [Old myocardial infarction] Onset: 02-03-2022 Chronic Coronary atherosclerosis and other heart disease (2 sources) Presence of coronary angioplasty implant and graft; Translations: [Presence of coronary angioplasty implant and graft] Onset: 03-24-2023 Episodic Delirium, dementia, and amnestic and other cognitive disorders (5 sources) Vascular dementia without behavioral disturbance; Translations: [Vascular dementia without behavioral disturbance] Onset: 03-07-2023 03-07-2023 Chronic Disorders of lipid metabolism (15 sources) Hyperlipidemia; Translations: [Mixed hyperlipidemia] Onset: 12-26-2015 03-31-2016 Chronic Essential hypertension (20 sources) Essential hypertension; Translations: [Essential (primary) hypertension] Onset: 12-26-2015 03-31-2016 Chronic Hypertension with complications and secondary hypertension (11 sources) Hypertensive emergency; Translations: [Hypertensive renal disease] Onset: 03-31-2016 03-31-2016 Chronic Intracranial injury (1 source) Traumatic subdural hemorrhage with loss of consciousness of unspecified duration, initial encounter; Translations: [Traumatic subdural hemorrhage with loss of consciousness of unspecified duration, initial encounter] Onset: 01-25-2018 Episodic Malaise and fatigue (5 sources) Fatigue; Translations: [Chronic fatigue, unspecified] Onset: 03-07-2023 03-07-2023 Chronic Malaise and fatigue (2 sources) Asthenia; Translations: [Weakness] 07-24-2023 Episodic Mood disorders (5 sources) Moderate major depression ; Translations: [Major depressive disorder, single episode, moderate] Onset: 03-07-2023 03-07-2023 Chronic Nutritional deficiencies (4 sources) Vitamin D deficiency; Translations: [Vitamin D deficiency disease] Chronic Other aftercare (5 sources) Polypharmacy ; Translations: [Other alf (current) drug therapy] Onset: 03-07-2023 03-07-2023 Episodic Other and ill-defined heart disease (3 sources) Bilateral enlargement of atria; Translations: [Cardiomegaly] Onset: 03-07-2023 03-07-2023 Chronic Other circulatory disease (2 sources) Presence of other cardiac implants and grafts; Translations: [Presence of other cardiac implants and grafts] Onset: 08-24-2022 Chronic Other circulatory disease (3 sources) Disorder of aorta; 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] Onset: 03-07-2023 03-07-2023 Chronic Other hereditary and degenerative nervous system conditions (3 sources) Impaired cognition; Translations: [Mild cognitive impairment, so stated] Onset: 03-07-2023 03-07-2023 Chronic Other injuries and conditions due to external causes (2 sources) At risk for falls ; Translations: [History of falling] 07-24-2023 Episodic Other lower respiratory disease (3 sources) Pulmonary granuloma; Translations: [Pulmonary fibrosis, unspecified] Onset: 03-07-2023 03-07-2023 Chronic Other nervous system disorders (5 sources) White matter disease; Translations: [White matter disease, unspecified] Onset: 03-07-2023 03-07-2023 Episodic Other upper respiratory disease (3 sources) Allergic rhinitis due to pollen; Translations: [Allergic rhinitis due to pollen] Onset: 03-07-2023 03-07-2023 Chronic Spondylosis; intervertebral disc disorders; other back problems (3 sources) Spondylosis; Translations: [Spondylosis, unspecified] Onset: 03-07-2023 03-07-2023 Chronic Thyroid disorders (3 sources) Acquired hypothyroidism; Translations: [Hypothyroidism, unspecified] Onset: 03-07-2023 03-07-2023 Chronic Unclassified (4 sources) MENDEZ (acute kidney injury) (HCC); Translations: [MENDEZ (acute kidney injury)] Onset: 04-06-2018 04-06-2018 Unclassified (2 sources) Other persistent atrial fibrillation; Translations: [Other persistent atrial fibrillation] Onset: 06-16-2022 Past or Other Problems Problem Classification Problem Date Documented Da te Episodic/Chronic Acute and unspecified renal failure (4 sources) Acute kidney failure, unspecified; Translations: [MENDEZ (acute kidney injury) (HCC)] Onset: 04-06-2018 04-06-2018 Episodic Administrative/social admission (3 sources) Sickness in the family; Translations: [Other stressful life events affecting family and household] Onset: 03-07-2023 03-07-2023 Episodic Cancer of prostate (3 sources) History of malignant neoplasm of prostate; Translations: [Personal history of malignant neoplasm of prostate] Onset: 03-07-2023 03-07-2023 Episodic Epilepsy; convulsions (8 sources) Partial seizure; Translations: [Partial seizures] Onset: 04-02-2016 04-02-2016 Episodic Other aftercare (3 sources) Patient encounter status; Translations: [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 (current) use of antithrombotics/ant iplatelets] Onset: 03-07-2023 03-07-2023 Episodic Other aftercare (3 sources) Drug therapy finding; Translations: [Other alf (current) drug therapy] Onset: 03-07-2023 03-07-2023 Episodic Other lower respiratory disease (1 source) Other nonspecific abnormal finding of lung field; Translations: [OTH NONSPECIFIC ABN FIND LNG FIELD] Onset: 07-27-2021 Episodic Residual codes; unclassified (8 sources) Creatinine level - finding; Translations: [Creatinine elevation] Onset: 12-26-2015 03-31-2016 Episodic Residual codes; unclassified (3 sources) Amnesia; Translations: [Other amnesia] Onset: 03-07-2023 03-07-2023 Episodic Results Test Name Value Interpretation Reference Range Facility Office Visiton 03-24-2023 Follow-up visit [id number] Keaton Hammond es R Sr. 1940 M Date Provider Department Center 03/24/2023 KILEY AHSSAN SER[facility] No family history on file Level of Service:31509 [place] OFFICE/OUTPATIENT ESTABLISHED LOW MDM 20-29 MIN Reason for Visit and Comments: Follow-up [[id number]] [facility] Office Visiton 08-24-2022 Follow-up visit [id number] Keaton Hammond es R Sr. 1940 Date Provider Department Center 08/24/2022 UDAY KLEIN [facility] No family history on file Level of Service:76342 [place] OFFICE/OUTPATIENT ESTABLISHED MOD MDM 30-39 MIN Reason for Visit and Comments: Follow-up [[id number]] [facility] CBC AUTO DIFFon 02-03-2022 BASO # 0.1 103/ul Normal 0.0-0.1 [facility] Comment on above: Performed By: #### C BC #### [facility] [address] [place] [address] Dr. Kenneth Sepulveda Basophils/100 WBC (Bld) 0.6 % Normal 0.2-2.0 [facility] Comment on above: Performed By: #### C BC #### [facility] [address] [place] [address] Dr. Kenneth Sepulveda EO # 0.2 103/ul Normal 0.0-0.7 [facility] Comment on above: Performed By: #### C BC #### [facility] [address] [place] [address] Dr. Kenneth Sepulveda Eosinophils/100 WBC (Bld) 2.1 % Normal 0.9-7.0 [facility] Comment on above: Performed By: #### C BC #### [facility] [address] [place] [address] Dr. Kenneth Sepulveda Erythrocyte distribution width (RBC) [Ratio] 12.4 % Normal 11.0-15.0 [facility] Comment on above: Performed By: #### C BC #### [facility] [address] [place] [address] Dr. Kenneth Sepulveda Hematocrit (Bld) [Volume fraction] 42.4 % Normal 42.0-54.0 [facility] Comment on above: Performed By: #### C BC #### [facility] [address] [place] [address] Dr. Kenneth Sepulveda Hemoglobin (Bld) [Mass/Vol] 14.4 g/dL Normal 14.0-18.0 [facility] Comment on above: Performed By: #### C BC #### [facility] [address] [place] [address] Dr. Kenneth Sepulveda IG # 0.03 10e3/ul Normal 0.00-0.03 [facility] Comment on above: Performed By: #### C BC #### [facility] [address] [place] [address] Dr. Kenneth Sepulveda IG % 0.4 % Normal 0.0-0.5 [facility] Comment on above: Performed By: #### C BC #### [facility] [address] [place] [address] Dr. Kenneth Sepulveda LYMPH # 1.7 103/ul Normal 1.2-3.8 [facility] Comment on above: Performed By: #### C BC #### [facility] [address] [place] [address] Dr. Kenneth Sepulveda Lymphocytes/100 WBC (Bld) 21.8 % Normal 20.5-60.0 [facility] Comment on above: Performed By: #### C BC #### [facility] [address] [place] [address] Dr. Kenneth Sepulveda MANUAL DIFF REQ NO Normal [facility] Comment on above: Performed By: #### C BC #### [facility] [address] [place] [address] Dr. Kenneth Sepulveda MCH (RBC) [Entitic mass] 30.6 pg Normal 25.9-34.0 [facility] Comment on above: Performed By: #### C BC #### [facility] [address] [place] [address] Dr. Kenneth Sepulveda MCHC (RBC) [Mass/Vol] 34.0 g/dL Normal 29.9-35.2 [facility] Comment on above: Performed By: #### C BC #### [facility] [address] [place] [address] Dr. Kenneth Sepulveda MCV (RBC) [Entitic vol] 90.2 fL Normal 80.0-94.0 [facility] Comment on above: Performed By: #### C BC #### [facility] [address] [place] [address] Dr. Kenneth Sepulveda MONO # 0.6 103/ul Normal 0.3-0.8 [facility] Comment on above: Performed By: #### C BC #### [facility] [address] [place] [address] Dr. Kenneth eSpulveda Monocytes/100 WBC (Bld) 7.1 % Normal 1.7-12.0 [facility] Comment on above: Performed By: #### C BC #### [facility] [address] [place] [address] Dr. Kenneth Sepulveda NEUT # 5.3 103/ul Normal 1.4-6.5 [facility] Comment on above: Performed By: #### C BC #### [facility] [address] [place] [address] Dr. Kenneth Sepulveda Neutrophils/100 WBC (Bld) 68.0 % Normal 43.0-75.0 [facility] Comment on above: Performed By: #### C BC #### [facility] [address] [place] [address] Dr. Kenneth Sepulveda Platelet mean volume (Bld) [Entitic vol] 9.1 fL Critically low 9.5-13.5 [facility] Comment on above: Performed By: #### C BC #### [facility] [address] [place] [address] Dr. Kenneth Sepulveda PLT 197 103/ul Normal 150-450 [facility] Comment on above: Performed By: #### C BC #### [facility] [address] [place] [address] Dr. Kenneth Sepulveda RBC 4.70 106/ul Normal 4.70-6.10 [facility] Comment on above: Performed By: #### C BC #### [facility] [address] [place] [address] Dr. Kenneth Sepulveda WBC 7.8 103/ul Normal 4.0-11.0 [facility] Comment on above: Performed By: #### C BC #### [facility] [address] [place] [address] Dr. Kenneth Sepulveda LIPID PROFILEon 02-03-2022 CHOL-HDL RATIO NORM SEE BELOW Normal [facility] Comment on above: Result Comment: 3.3 - 4.4 LOW RISK 4.4 - 7.1 AVERAGE RISK 7.1 - 11.0 MODERATE RISK >11.0 HIGH RISK Performed By: #### L IPID, CMP #### [facility] [address] [place] [address] Dr. Kenneth Sepulveda Cholesterol [Mass/Vol] 116 mg/dL Normal <=200 [facility] Comment on above: Performed By: #### L IPID, CMP #### [facility] [address] [place] [address] Dr. Kenneth Sepulveda Cholesterol in HDL [Mass/Vol] 40 mg/dL Normal 40-60 [facility] Comment on above: Performed By: #### L IPID, CMP #### [facility] [address] [place] [address] Dr. Kenneth Sepulveda Cholesterol in LDL [Mass/Vol] 57.2 mg/dL Normal [facility] Comment on above: Performed By: #### L IPID, CMP #### [facility] [address] [place] [address] Dr. Kenneth Sepulveda Cholesterol.total/Ch olesterol in HDL [Mass ratio] 2.9 {ratio} Normal [facility] Comment on above: Performed By: #### L IPID, CMP #### [facility] [address] [address] [address] Kenneth Sepulveda HDL NORMAL > or = 60 mg/dl - LO W CARDIOVASCULAR RISK <40 mg/dl - HIGH CARDIOVASCULAR RISK Normal [facility] Comment on above: Performed By: #### L IPID, CMP #### [facility] [address] [place] [address] Dr. Kenneth Sepulveda LDL CALC NORMAL SEE BELOW Normal [facility] Comment on above: Result Comment: <100 mg/dl OPTIMAL 100 - 129 mg/dl NEAR OR ABOVE OPTIMAL 130 - 159 mg/dl BORDERLINE HIGH 160 - 189 mg/dl HIGH >190 mg/dl VERY HIGH Performed By: #### L IPID, CMP #### [facility] [address] [place] [address] Dr. Kenneth Sepulveda Triglyceride [Mass/Vol] 94 mg/dL Normal <=150 [facility] Comment on above: Performed By: #### L IPID, CMP #### [facility] [address] [place] [address] Dr. Kenneth Sepulveda VLDL CALC 18.8 mg/dL Normal [facility] Comment on above: Performed By: #### L IPID, CMP #### [facility] [address] [place] [address] Dr. Kenneth Sepulveda PROF 14(COMP METB)on 022 Albumin [Mass/Vol] 3.6 g/dL Normal 3.4-5.0 [facility] Comment on above: Performed By: #### L IPID, CMP #### [facility] [address] [place] [address] Dr. Kenneth Sepulveda Albumin/Globulin [Mass ratio] 1.1 {ratio} Normal [facility] Comment on above: Performed By: #### L IPID, CMP #### [facility] [address] [place] [address] Dr. Kenneth Sepulveda ALP [Catalytic activity/Vol] 88 U/L Normal 46-116 [facility] Comment on above: Performed By: #### L IPID, CMP #### [facility] [address] [place] [address] Dr. Kenneht Sepulveda ALT [Catalytic activity/Vol] 40 U/L Normal 16-63 [facility] Comment on above: Performed By: #### L IPID, CMP #### [facility] [address] [place] [address] Dr. Kenneth Sepulveda Anion gap [Moles/Vol] 14.3 mmol/L Normal [facility] Comment on above: Performed By: #### L IPID, CMP #### [facility] [address] [place] [address] Dr. Kenneth Sepulveda AST [Catalytic activity/Vol] 25 U/L Normal 15-37 [facility] Comment on above: Performed By: #### L IPID, CMP #### [facility] [address] [place] [address] Dr. Kenneth Sepulveda Bilirubin [Mass/Vol] 1.0 mg/dL Normal 0.2-1.0 [facility] Comment on above: Performed By: #### L IPID, CMP #### [facility] [address] [place] [address] Dr. Kenneth Sepulveda Calcium [Mass/Vol] 8.9 mg/dL Normal 8.5-10.1 [facility] Comment on above: Performed By: #### L IPID, CMP #### [facility] [address] [place] [address] Dr. Kenneth Sepulveda Chloride [Moles/Vol] 98 mmol/L Normal 98-107 [facility] Comment on above: Performed By: #### L IPID, CMP #### [facility] [address] [place] [address] Dr. Kenneth Sepulveda CO2 [Moles/Vol] 26.6 mmol/L Normal 21.0-32.0 [facility] Comment on above: Performed By: #### L IPID, CMP #### [facility] [address] [place] [address] Dr. Kenneth Sepulveda Creatinine [Mass/Vol] 1.17 mg/dL Normal 0.70-1.30 [facility] Comment on above: Performed By: #### L IPID, CMP #### [facility] [address] [address] [address] Kenneth Sepulveda EGFR-AF MONGOLIAN >60 Normal >=60 [facility] Comment on above: Performed By: #### L IPID, CMP #### [facility] [address] [address] [address] Kenneth Sepulveda EGFR-NON AF MONGOLIAN 60 mL/min/1.73m2 Normal >=60 [facility] Comment on above: Performed By: #### L IPID, CMP #### [facility] [address] [address] [address] Kenneth Sepulveda Globulin (S) [Mass/Vol] 3.2 g/dL Normal [facility] Comment on above: Performed By: #### L IPID, CMP #### [facility] [address] [address] [address] Kenneth Sepulveda Glucose [Mass/Vol] 90 mg/dL Normal 74-106 [facility] Comment on above: Performed By: #### L IPID, CMP #### [facility] [address] [place] [address] Dr. Kenneth Sepulveda Potassium [Moles/Vol] 3.9 mmol/L Normal 3.5-5.1 [facility] Comment on above: Performed By: #### L IPID, CMP #### [facility] [address] [address] [address] Kenneth Sepulveda Protein [Mass/Vol] 6.8 g/dL Normal 6.4-8.2 [facility] Comment on above: Performed By: #### L IPID, CMP #### [facility] [address] [place] [address] Dr. Kenneth Sepulveda Sodium [Moles/Vol] 135 mmol/L Critically low 136-145 [facility] Comment on above: Performed By: #### L IPID, CMP #### [facility] [address] [place] [address] Dr. Kenneth Sepulveda Urea nitrogen [Mass/Vol] 14.0 mg/dL Normal 7.0-18.0 [facility] Comment on above: Performed By: #### L IPID, CMP #### [facility] [address] [address] [address] Kenneth Sepulveda Urea nitrogen/Creatinine [Mass ratio] 12.0 mg/mg Normal [facility] Comment on above: Performed By: #### L IPID, CMP #### [facility] [address] [address] [address] Kenneth Sepulveda XR CHEST 2 Von 07-22-2021 XR CHEST 2 V EXAMINATION: XR CHES T 2 V HISTORY: Paroxysmal atrial fibrillation COMPARISON: No relevant comparison available. FINDINGS: LUNGS: Minimal haziness within the lung bases. VASCULATURE: No increased pulmonary vasculature. PLEURA: No pneumothorax, effusion, or pleural thickening. CARDIAC: No cardiomegaly or cardiac silhouette abnormality. MEDIASTINUM: No visible mass or adenopathy. BONES: Degenerative changes of the acromioclavicular joints. OTHER: Negative. IMPRESSION: 1. Trace amount bibasilar atelectasis or possibly infiltrates. Electronically authenticated by: BOY ADAME Date: 2021-07-22 13:26 Normal [facility] CBC AUTO DIFFon 07-21-2021 BASO # 0.0 103/ul Normal 0.0-0.1 [facility] Comment on above: Performed By: #### C BC #### [facility] [address] [address] [address] Kenneth Sepulveda Basophils/100 WBC (Bld) 0.5 % Normal 0.2-2.0 [facility] Comment on above: Performed By: #### C BC #### [facility] [address] [address] [address] Kenneth Sepulveda EO # 0.1 103/ul Normal 0.0-0.7 [facility] Comment on above: Performed By: #### C BC #### [facility] [address] [address] [address] Kenneth Sepulveda Eosinophils/100 WBC (Bld) 1.3 % Normal 0.9-7.0 [facility] Comment on above: Performed By: #### C BC #### [facility] [address] [place] [address] Dr. Kenneth Sepulveda Erythrocyte distribution width (RBC) [Ratio] 13.2 % Normal 11.0-15.0 [facility] Comment on above: Performed By: #### C BC #### [facility] [address] [place] [address] Dr. Kenneth Sepulveda Hematocrit (Bld) [Volume fraction] 43.5 % Normal 42.0-54.0 [facility] Comment on above: Performed By: #### C BC #### [facility] [address] [place] [address] Dr. Kenneth Sepulveda Hemoglobin (Bld) [Mass/Vol] 14.5 g/dL Normal 14.0-18.0 [facility] Comment on above: Performed By: #### C BC #### [facility] [address] [place] [address] Dr. Kenneth Sepulveda IG # 0.03 10e3/ul Normal 0.00-0.03 [facility] Comment on above: Performed By: #### C BC #### [facility] [address] [place] [address] Dr. Kenneth Sepulveda IG % 0.4 % Normal 0.0-0.5 [facility] Comment on above: Performed By: #### C BC #### [facility] [address] [place] [address] Dr. Kenneth Sepulveda LYMPH # 2.2 103/ul Normal 1.2-3.8 [facility] Comment on above: Performed By: #### C BC #### [facility] [address] [place] [address] Dr. Kenneth Sepulveda Lymphocytes/100 WBC (Bld) 27.7 % Normal 20.5-60.0 [facility] Comment on above: Performed By: #### C BC #### [facility] [address] [place] [address] Dr. Kenneth Sepulveda MANUAL DIFF REQ NO Normal [facility] Comment on above: Performed By: #### C BC #### [facility] [address] [place] [address] Dr. Kenneth Sepulveda MCH (RBC) [Entitic mass] 30.4 pg Normal 25.9-34.0 [facility] Comment on above: Performed By: #### C BC #### [facility] [address] [place] [address] Dr. Kenneth Sepulveda MCHC (RBC) [Mass/Vol] 33.3 g/dL Normal 29.9-35.2 [facility] Comment on above: Performed By: #### C BC #### [facility] [address] [place] [address] Dr. Kenneth Sepulveda MCV (RBC) [Entitic vol] 91.2 fL Normal 80.0-94.0 [facility] Comment on above: Performed By: #### C BC #### [facility] [address] [place] [address] Dr. Kenneth Sepulveda MONO # 0.5 103/ul Normal 0.3-0.8 [facility] Comment on above: Performed By: #### C BC #### [facility] [address] [place] [address] Dr. Kenneth Sepulveda Monocytes/100 WBC (Bld) 6.6 % Normal 1.7-12.0 [facility] Comment on above: Performed By: #### C BC #### [facility] [address] [place] [address] Dr. Kenneth Sepulveda NEUT # 4.9 103/ul Normal 1.4-6.5 [facility] Comment on above: Performed By: #### C BC #### [facility] [address] [place] [address] Dr. Kenneth Sepulveda Neutrophils/100 WBC (Bld) 63.5 % Normal 43.0-75.0 [facility] Comment on above: Performed By: #### C BC #### [facility] [address] [place] [address] Dr. Kenneth Sepulveda Platelet mean volume (Bld) [Entitic vol] 8.7 fL Critically low 9.5-13.5 [facility] Comment on above: Performed By: #### C BC #### [facility] [address] [address] [address] Kenneth Sepulveda PLT 219 103/ul Normal 150-450 [facility] Comment on above: Performed By: #### C BC #### [facility] [address] [address] [address] Kenneth Sepulveda RBC 4.77 106/ul Normal 4.70-6.10 [facility] Comment on above: Performed By: #### C BC #### [facility] [address] [address] [address] Kenneth Sepulveda WBC 7.8 103/ul Normal 4.0-11.0 [facility] Comment on above: Performed By: #### C BC #### [facility] [address] [place] [address] Dr. Kenneth Sepulveda LIPID PROFILEon 07-21-2021 CHOL-HDL RATIO NORM SEE BELOW Normal [facility] Comment on above: Result Comment: 3.3 - 4.4 LOW RISK 4.4 - 7.1 AVERAGE RISK 7.1 - 11.0 MODERATE RISK >11.0 HIGH RISK Performed By: #### C MP, LIPID #### [facility] [address] [place] [address] Dr. Kenneth Sepulveda Cholesterol [Mass/Vol] 151 mg/dL Normal <=200 [facility] Comment on above: Performed By: #### C MP, LIPID #### [facility] [address] [place] [address] Dr. Kenneth Sepulveda Cholesterol in HDL [Mass/Vol] 45 mg/dL Normal [facility] Comment on above: Performed By: #### C MP, LIPID #### [facility] [address] [address] [address] Kenneth Sepulveda Cholesterol in LDL [Mass/Vol] 88.4 mg/dL Normal [facility] Comment on above: Performed By: #### C MP, LIPID #### [facility] [address] [place] [address] Dr. Kenneth Sepulveda Cholesterol.total/Ch olesterol in HDL [Mass ratio] 3.4 {ratio} Normal [facility] Comment on above: Performed By: #### C MP, LIPID #### [facility] [address] [address] [address] Kenneth Sepulveda HDL NORMAL > or = 60 mg/dl - LO W CARDIOVASCULAR RISK <40 mg/dl - HIGH CARDIOVASCULAR RISK Normal [facility] Comment on above: Performed By: #### C MP, LIPID #### [facility] [address] [place] [address] Dr. Kenneth Sepulveda LDL CALC NORMAL SEE BELOW Normal [facility] Comment on above: Result Comment: <100 mg/dl OPTIMAL 100 - 129 mg/dl NEAR OR ABOVE OPTIMAL 130 - 159 mg/dl BORDERLINE HIGH 160 - 189 mg/dl HIGH >190 mg/dl VERY HIGH Performed By: #### C MP, LIPID #### [facility] [address] [place] [address] Dr. Kenneth Sepulveda Triglyceride [Mass/Vol] 88 mg/dL Normal <=150 [facility] Comment on above: Performed By: #### C MP, LIPID #### [facility] [address] [place] [address] Dr. Kennteh Sepulveda VLDL CALC 17.6 mg/dL Normal [facility] Comment on above: Performed By: #### C MP, LIPID #### [facility] [address] [place] [address] Dr. Kenneth Sepulveda PROF 14(COMP METB)on 022 Albumin [Mass/Vol] 3.7 g/dL Normal 3.5-5.0 [facility] Comment on above: Performed By: #### C MP, LIPID #### [facility] [address] [place] [address] Dr. Kenneth Sepulveda Albumin/Globulin [Mass ratio] 1.1 {ratio} Normal [facility] Comment on above: Performed By: #### C MP, LIPID #### [facility] [address] [place] [address] Dr. Kenneth Sepulveda ALP [Catalytic activity/Vol] 57 U/L Normal 38-126 [facility] Comment on above: Performed By: #### C MP, LIPID #### [facility] [address] [address] [address] Kenneth Sepulveda ALT [Catalytic activity/Vol] 20 U/L Critically low 21-72 [facility] Comment on above: Performed By: #### C MP, LIPID #### [facility] [address] [address] [address] Kenneth Sepulveda Anion gap [Moles/Vol] 9.8 mmol/L Normal [facility] Comment on above: Performed By: #### C MP, LIPID #### [facility] [address] [address] [address] Kenneth Sepulveda AST [Catalytic activity/Vol] 15 U/L Critically low 17-59 [facility] Comment on above: Performed By: #### C MP, LIPID #### [facility] [address] [place] [address] Dr. Kenneth Sepulveda Bilirubin [Mass/Vol] 0.8 mg/dL Normal 0.2-1.3 [facility] Comment on above: Performed By: #### C MP, LIPID #### [facility] [address] [place] [address] Dr. Kenneth Sepulveda Calcium [Mass/Vol] 9.5 mg/dL Normal 8.4-10.2 [facility] Comment on above: Performed By: #### C MP, LIPID #### [facility] [address] [place] [address] Dr. Kenneth Sepulveda Chloride [Moles/Vol] 103 mmol/L Normal 98-107 [facility] Comment on above: Performed By: #### C MP, LIPID #### [facility] [address] [place] [address] Dr. Kenneth Sepulveda CO2 [Moles/Vol] 30.0 mmol/L Normal 22.0-30.0 [facility] Comment on above: Performed By: #### C MP, LIPID #### [facility] [address] [place] [address] Dr. Kenneth Sepulveda Creatinine [Mass/Vol] 1.45 mg/dL Critically high 0.66-1.25 [facility] Comment on above: Performed By: #### C MP, LIPID #### [facility] [address] [address] [address] Kenneth Sepulveda EGFR-AF MONGOLIAN 56 mL/min/1.73m2 Critically low >=60 [facility] Comment on above: Performed By: #### C MP, LIPID #### [facility] [address] [address] [address] Kenneth Sepulveda EGFR-NON AF MONGOLIAN 47 mL/min/1.73m2 Critically low >=60 [facility] Comment on above: Performed By: #### C MP, LIPID #### [facility] [address] [address] [address] Kenneth Sepulveda Globulin (S) [Mass/Vol] 3.4 g/dL Normal [facility] Comment on above: Performed By: #### C MP, LIPID #### [facility] [address] [address] [address] Kenneth Sepulveda Glucose [Mass/Vol] 83 mg/dL Normal 74-106 [facility] Comment on above: Performed By: #### C MP, LIPID #### [facility] [address] [address] [address] Kenneth Sepulveda Potassium [Moles/Vol] 3.8 mmol/L Normal 3.4-5.0 [facility] Comment on above: Performed By: #### C MP, LIPID #### [facility] [address] [address] [address] Kenneth Sepulveda Protein [Mass/Vol] 7.1 g/dL Normal 6.1-8.2 [facility] Comment on above: Performed By: #### C MP, LIPID #### [facility] [address] [address] [address] Kenneth Sepulveda Sodium [Moles/Vol] 139 mmol/L Normal 137-145 [facility] Comment on above: Performed By: #### C MP, LIPID #### [facility] [address] [address] [address] Kenneth Sepulveda Urea nitrogen [Mass/Vol] 26.0 mg/dL Critically high 9.0-20.0 [facility] Comment on above: Performed By: #### C MP, LIPID #### [facility] [address] [place], [place] [address] Dr. Kenneth Sepulveda Urea nitrogen/Creatinine [Mass ratio] 17.9 mg/mg Normal [facility] Comment on above: Performed By: #### C MP, LIPID #### [facility] [address] [place], [place] [address] Dr. Kenneth Sepulveda BASIC METABOLIC PANELon 05-2 Calcium [Mass/Vol] 9.1 mg/dL Normal 8.6-10.3 [facility] Comment on above: Order Comment: No: D o not add to previous draw Performed By: #### [id number] #### [facility] [address] [place] [address], [place] Chloride [Moles/Vol] 100 mmol/L Normal 98-[address] [facility] Comment on above: Order Comment: No: D o not add to previous draw Performed By: #### [id number] #### [facility] [address] [place] [address], [place] CO2 [Moles/Vol] 25 mmol/L Normal 21-31 [facility] Comment on above: Order Comment: No: D o not add to previous draw Performed By: #### 3 0477, 31435 #### [facility] [address] [place] [address], [place] Creatinine [Mass/Vol] 1.45 mg/dL High 0.70-1.[address] [facility] Comment on above: Order Comment: No: D o not add to previous draw Performed By: #### 3 0477, 24224 #### [facility] [address] [place] [address], [place] eGFR- 57 ml/min/1.73sq m Abnormal >60 [facility] Comment on above: Order Comment: No: D o not add to previous draw Result Comment: Calc ulation may not be valid for patients over 70 years Performed By: #### 3 476, 24788 #### [facility] [address] [place] [address], [facility] eGFR- non- 47 ml/min/1.73sq m Abnormal >60 [facility] Comment on above: Order Comment: No: D o not add to previous draw Result Comment: Calc ulation may not be valid for patients over 70 years Performed By: #### 3 476, 59732 #### [facility] [address] [place] [address], [place] Glucose [Mass/Vol] 93 mg/dL Normal 70-100 [facility] Comment on above: Order Comment: No: D o not add to previous draw Performed By: #### 3 476, 49042 #### [facility] [address] [place] [address], [place] Potassium [Moles/Vol] 4.1 mmol/L Normal 3.5-5.[address] [facility] Comment on above: Order Comment: No: D o not add to previous draw Performed By: #### 3 7, 67809 #### [facility] [address] [place] [address], [place] Sodium [Moles/Vol] 132 mmol/L Low 136-145 [facility] Comment on above: Order Comment: No: D o not add to previous draw Performed By: #### 3 7, 39932 #### [facility] [address] [place] [address], [place] Urea nitrogen [Mass/Vol] 27 mg/dL High 7-25 [facility] Comment on above: Order Comment: No: D o not add to previous draw Performed By: #### 3 7, 06616 #### [facility] [address] [place] [address], [place] CBC COMPLETE BLOOD COUNTon 0 - Erythrocyte distribution width (RBC) [Ratio] 12.9 % Normal 11.5-15.0 [facility] Comment on above: Order Comment: No: D o not add to previous draw Performed By: #### 8 5123 #### [facility] [address] [place] [address], [facility] Hematocrit (Bld) [Volume fraction] 39.8 % Normal 39.0-50.0 [facility] Comment on above: Order Comment: No: D o not add to previous draw Performed By: #### 8 5123 #### [facility] [address] [place] [address], [facility] Hemoglobin (Bld) [Mass/Vol] 13.3 g/dL Normal 13.0-17.0 [facility] Comment on above: Order Comment: No: D o not add to previous draw Performed By: #### 8 5123 #### [facility] [address] [place] [address], [place] MCH (RBC) [Entitic mass] 29.8 pg Normal 27.0-33.0 [facility] Comment on above: Order Comment: No: D o not add to previous draw Performed By: #### 8 5123 #### [facility] [address] [place] [address], [place] MCHC (RBC) [Mass/Vol] 33.4 g/dL Normal 32.0-35.0 [facility] Comment on above: Order Comment: No: D o not add to previous draw Performed By: #### 8 5123 #### [facility] [address] [place] [address], [place] MCV (RBC) [Entitic vol] 89.0 fL Normal 82.0-98.0 [facility] Comment on above: Order Comment: No: D o not add to previous draw Performed By: #### 8 5123 #### [facility] [address] [place] [address], [place] Nucleated RBC/100 WBC (Bld) [Ratio] 0 % Normal 0-0 [facility] Comment on above: Order Comment: No: D o not add to previous draw Performed By: #### 8 5123 #### [facility] [address] [place] [address], [facility] PLAT CNT 226 10*3/uL Normal 150-400 [facility] Comment on above: Order Comment: No: D o not add to previous draw Performed By: #### 8 5123 #### [facility] [address] [facility] [place] [address], [facility] RBC (Bld) [#/Vol] 4.47 10*6/uL Normal 4.20-5.70 [facility] Comment on above: Order Comment: No: D o not add to previous draw Performed By: #### 8 5123 #### [facility] [address] [facility] [place] [address], [facility] WBC (Bld) [#/Vol] 9.70 10*3/uL Normal 4.00-10.60 [facility] Comment on above: Order Comment: No: D o not add to previous draw Performed By: #### 8 5123 #### [facility] [address] Cardiovascular Lab Reporton 11-03-2020 Cardiovascular Lab Report [facility] Patient Name: Hammond [facility] Nette Bryan MR #: [id number] Department of Physician: Julieta Galvan MBienvenido Division of Service Date: 11/02/2020 Cardiology Birthdate: 1940 Adult Cardiovascular Room #: 3AB [id number] Services [facility] [address] [address] Cardiovascular Laboratory Report CLINICAL PRESENTATION: The patient is an 80-year-old male with past medical history significant for hypertension, chronic kidney disease, paroxysmal atrial fibrillation status post Watchman left atrial appendage occlusion device. The patient is admitted with chest pain and found to have NSTEMI. He has deep T-wave inversions across the anterolateral leads consistent with Wellens T-wave changes. He is referred for coronary angiogram. FINAL IMPRESSION: 1. The culprit lesion for the NSTEMI is a mid LAD 80% stenosis, status post successful PCI with a Synergy 3.5 x 24 mm drug-eluting stent. The stent was post dilated with a 3.5 mm noncompliant balloon at high pressure. 2. Left circumflex is patent. 3. The RCA is patent with 30% stenosis in the mid RCA and 40% stenosis in the right PDA. PLAN: 1. Optimal medical therapy for secondary prevention of CAD status post PCI. 2. Aspirin 81 mg daily long-term. 3. Plavix 75 mg daily for 6 months. 4. High-intensity statin therapy. 5. Outpatient followup with ID Cardiology. 6. Referral to cardiac rehabilitation. PROCEDURES: Coronary angiogram, PCI of LAD, conscious sedation 38 minutes. INDICATION: NSTEMI. PROCEDURE DESCRIPTION: The patient was brought to cardiac catheterization lab in a fasting state. Informed written consent was obtained. He was prepped and draped in usual sterile fashion over the right wrist. Time-out was performed. He was given Versed and fentanyl for sedation. A 1% lidocaine was infiltrated over the right radial artery. A 6-Qatari Terumo Glidesheath slender was placed in right radial artery. The radial anti-vasospasm cocktail, nitroglycerin 200 mcg and verapamil 2.5 mg were administered through the sheath. All catheter exchanges were made over the Magic Torque guidewire. A 6-Qatari JR5 used to engage the right coronary artery. A 6-Qatari JL3.5 was used to engage the left main coronary artery. Coronary angiograms performed in multiple orthogonal views using hand injection of contrast. At this time, it was apparent that the mid LAD had 80% stenosis. I elected to proceed with PCI. Heparin anticoagulation was used for this procedure. ACT was maintained greater than 200 seconds. A Ice Energytronic EBU 4.0 guide was engaged in left main coronary artery. Once the run-through wire was manipulated to the distal LAD, the lesion was treated with direct stent placement with a Synergy 3.5 x 24 mm drug-eluting stent deployed at 12 atmospheres. The stent was then post dilated with an NC Emerge 3.5 x 15 mm noncompliant balloon at high pressure of 20 atmospheres in the central portion and 14-16 atmospheres at the distal and proximal edges. At this point, the final result was very good. There was 0% residual stenosis in the mid LAD and normal SERENE-3 flow throughout the LAD and its branches. At the beginning of the procedure, there was SERENE 2 flow. At this time, the procedure was completed. All catheters and wires removed from the body. The right radial sheath was removed and TR band was applied to obtain hemostasis. There were no apparent complications. TOTAL CONTRAST: 90 mL. TOTAL CONSCIOUS SEDATION TIME: 38 minutes. TOTAL FLUOROSCOPY TIME: 7 minutes and 50 seconds, 0.4 Gy. FINDINGS: Aortic pressure 96/62 (MAP 77). CORONARY ANGIOGRAM: Left main coronary artery: The left main is large and bifurcates to the left anterior descending and left circumflex coronary artery. The left main is patent. Left anterior descending coronary artery: The LAD is a large vessel and gives rise to 1 major diagonal branch. The proximal LAD has diffuse 30% stenosis. The mid LAD has a focal 80% stenosis. The remainder of the LAD is patent. The diagonal branch has 30% stenosis in its mid segment. After stent procedure, there was 0% residual stenosis in the mid LAD. Left circumflex coronary artery: Patent. Right coronary artery. RCA is a large vessel and dominant. The proximal through mid RCA has diffuse 30% stenosis. The remainder of the RCA is patent. The MCKENNA is patent. The right PDA has a focal 40% stenosis in its mid segment and is otherwise patent. Electronically Signed by: Evelyn Partida M.D. 11/03/2020 05:44 P Evelyn Partida M.D. Date Dict: 11/02/2020/03:45 P/Evelyn Partida M.D. Date Trans: 11/02/2020 10:36 P/chandler [id number] cc: Cedric Carr M.D. [address] [place] [address] B [facility] [id number] Braeden Schaefer M.D. [address] [facility] [address] [address] [facility] BASIC METABOLIC PANELon 05-2 Calcium [Mass/Vol] 9.2 mg/dL Normal 8.6-10.3 [facility] Comment on above: Order Comment: No: D o not add to previous draw Performed By: #### 0 0071, 24207, 30157 #### [facility] [address] [place] [address], [place] Chloride [Moles/Vol] 102 mmol/L Normal 98-107 [facility] Comment on above: Order Comment: No: D o not add to previous draw Performed By: #### 0 0071, 24481, 06593 #### [facility] [address] [place] [address], [place] CO2 [Moles/Vol] 24 mmol/L Normal 21-31 [facility] Comment on above: Order Comment: No: D o not add to previous draw Performed By: #### 0 0071, 51327, 93422 #### [facility] [address] [place] [address], [place] Creatinine [Mass/Vol] 1.44 mg/dL High 0.70-1.30 [facility] Comment on above: Order Comment: No: D o not add to previous draw Performed By: #### 0 0071, 89600, 07097 #### [facility] [address] [place] [address], [facility] eGFR- 57 ml/min/1.73sq m Abnormal >60 [facility] Comment on above: Order Comment: No: D o not add to previous draw Result Comment: Calc ulation may not be valid for patients over 70 years Performed By: #### 0 0071, 57349, 00581 #### [facility] [address] [place] [address], [facility] eGFR- non- 47 ml/min/1.73sq m Abnormal >60 [facility] Comment on above: Order Comment: No: D o not add to previous draw Result Comment: Calc ulation may not be valid for patients over 70 years Performed By: #### 0 0071, 22369, 89281 #### [facility] [address] [place] [address], [place] Glucose [Mass/Vol] 90 mg/dL Normal 70-100 [facility] Comment on above: Order Comment: No: D o not add to previous draw Performed By: #### 0 0071, 94571, 10763 #### [facility] [address] [place] [address], [place] Potassium [Moles/Vol] 3.4 mmol/L Low 3.5-5.1 [facility] Comment on above: Order Comment: No: D o not add to previous draw Performed By: #### 0 0071, 78102, 90470 #### [facility] [address] [place] [address], [place] Sodium [Moles/Vol] 136 mmol/L Normal 136-145 [facility] Comment on above: Order Comment: No: D o not add to previous draw Performed By: #### 0 0071, , 39397 #### [facility] [address] [place] [address], [place] Urea nitrogen [Mass/Vol] 21 mg/dL Normal 7-25 [facility] Comment on above: Order Comment: No: D o not add to previous draw Performed By: #### 0 0071, 19257, 58928 #### [facility] [address] [place] [address], [place] CBC COMPLETE BLOOD COUNTon 0 - Erythrocyte distribution width (RBC) [Ratio] 13.1 % Normal 11.5-15.0 [facility] Comment on above: Order Comment: No: D o not add to previous draw Performed By: #### 8 5123 #### [facility] [address] [place] [address], [place] Hematocrit (Bld) [Volume fraction] 40.9 % Normal 39.0-50.0 [facility] Comment on above: Order Comment: No: D o not add to previous draw Performed By: #### 8 5123 #### [facility] [address] [place] [address], [facility] Hemoglobin (Bld) [Mass/Vol] 13.6 g/dL Normal 13.0-17.0 [facility] Comment on above: Order Comment: No: D o not add to previous draw Performed By: #### 8 5123 #### [facility] [address] [place] [address], [facility] MCH (RBC) [Entitic mass] 29.8 pg Normal 27.0-33.0 [facility] Comment on above: Order Comment: No: D o not add to previous draw Performed By: #### 8 5123 #### [facility] [address] [place] [address], [facility] MCHC (RBC) [Mass/Vol] 33.3 g/dL Normal 32.0-35.0 [facility] Comment on above: Order Comment: No: D o not add to previous draw Performed By: #### 8 5123 #### [facility] [address] [place] [address], [facility] MCV (RBC) [Entitic vol] 89.7 fL Normal 82.0-98.0 [facility] Comment on above: Order Comment: No: D o not add to previous draw Performed By: #### 8 5123 #### [facility] [address] [place] [address], [facility] Nucleated RBC/100 WBC (Bld) [Ratio] 0 % Normal 0-0 [facility] Comment on above: Order Comment: No: D o not add to previous draw Performed By: #### 8 5123 #### [facility] [address] [place] [address], [facility] PLAT CNT 217 10*3/uL Normal 150-400 [facility] Comment on above: Order Comment: No: D o not add to previous draw Performed By: #### 8 5123 #### [facility] [address] [place] [address], [facility] RBC (Bld) [#/Vol] 4.56 10*6/uL Normal 4.20-5.70 [facility] Comment on above: Order Comment: No: D o not add to previous draw Performed By: #### 8 5123 #### [facility] [address] [place] [address], [facility] WBC (Bld) [#/Vol] 7.38 10*3/uL Normal 4.00-10.60 [facility] Comment on above: Order Comment: No: D o not add to previous draw Performed By: #### 8 5123 #### [facility] [address] MAGNESIUM BLOODon 11-02-2020 Magnesium [Mass/Vol] 1.6 mg/dL Low 1.9-2.[address] [facility] Comment on above: Order Comment: No: D o not add to previous draw Performed By: #### 0 0071, 82967, 77574 #### [facility] [address] [place] [address], [facility] POC GLUCOSE LABon 11-02-2020 Glucose [Mass/Vol] 92 mg/dL Normal 70-100 [facility] Comment on above: Performed By: #### 8 5123 #### [facility] [address] [place] [address], [facility] TROPONIN-Ion 11-02-2020 Troponin I.cardiac [Mass/Vol] 0.21 ng/mL Critically high 0.00-0.[address] [facility] Comment on above: Order Comment: No: D o not add to previous draw Result Comment: M-WI EVIOUS CRITICAL RESULT REFERENCE RANGES: 0.00 - 0.04 ng/ml NORMAL 0.05 - 0.50 ng/ml INDETERMINATE > 0.50 ng/ml CONSISTENT WITH AN M.I. Performed By: #### 0 0071, 58699, 82229 #### [facility] [address] [employer] [address] UFH HEPARIN ASSAYon 11-03-19 UNFRACTIONATED HEPARIN 0.91 IU/mL Critically high 0.30-0.[address] [facility] Comment on above: Result Comment: Gaby roxaban and Apixaban will interfere with the anti Xa assay used to monitor UFH and LMWH. Results called. Accurately read back by Stephanie Moore RN at 1217 Performed By: #### 3 1522, 96845, 62879, 13852 #### [facility] [address] [facility]. [address] UNFRACTIONATED HEPARIN 0.75 IU/mL High 0.30-0.[address] [facility] Comment on above: Result Comment: Duryea roxaban and Apixaban will interfere with the anti Xa assay used to monitor UFH and LMWH. Performed By: #### 8 5123 #### [facility] [address] [facility]. [address] APTTon 11-01-2020 aPTT Coag (Bld) [Time] 28.5 s Normal 25.0-35.[address] [facility] Comment on above: Order Comment: No: D o not add to previous draw Result Comment: ALL RESULTS MUST BE INTERPRETED WITH RESPECT TO BLOOD DRAWING ARTIFACT OR DILUTION ERROR OF ANTICOAGULANT AT THE TIME OF SAMPLING. THE APTT SHOULD NOT BE USED TO MONITOR UNFRACTIONATED HEPARIN THERAPY, THIS LABORATORY NO LONGER HAS AN ESTABLISHED THERAPEUTIC RANGE BASED ON THE APTT. IT IS RECOMMENDED THAT THE UFH - HEPARIN ASSAY (ANTI-XA ACTIVITY) BE USED FOR THIS PURPOSE. Performed By: #### 3 0477, 26419 #### [facility] [address] [facility]. [address] BASIC METABOLIC PANELon 05- Calcium [Mass/Vol] 9.5 mg/dL Normal 8.6-10.3 [facility] Comment on above: Order Comment: No: D o not add to previous draw Performed By: #### 3 476, 38176 #### [facility] [address] [place] [address], [place] Chloride [Moles/Vol] 102 mmol/L Normal 98-107 [facility] Comment on above: Order Comment: No: D o not add to previous draw Performed By: #### 3 476, 03233 #### [facility] [address] [place] [address], [place] CO2 [Moles/Vol] 27 mmol/L Normal 21-31 [facility] Comment on above: Order Comment: No: D o not add to previous draw Performed By: #### 3 476, 08913 #### [facility] [address] [place] [address], [place] Creatinine [Mass/Vol] 1.39 mg/dL High 0.70-1.30 [facility] Comment on above: Order Comment: No: D o not add to previous draw Performed By: #### 3 476, 13983 #### [facility] [address] [place] [address], [place] eGFR- 59 ml/min/1.73sq m Abnormal >60 [facility] Comment on above: Order Comment: No: D o not add to previous draw Result Comment: Calc ulation may not be valid for patients over 70 years Performed By: #### 3 476, 53475 #### [facility] [address] [place] [address], [place] eGFR- non- 49 ml/min/1.73sq m Abnormal >60 [facility] Comment on above: Order Comment: No: D o not add to previous draw Result Comment: Calc ulation may not be valid for patients over 70 years Performed By: #### 3 476, 57642 #### [facility] [address] [place] [address], [place] Glucose [Mass/Vol] 93 mg/dL Normal 70-100 [facility] Comment on above: Order Comment: No: D o not add to previous draw Performed By: #### 3 0477, 17616 #### [facility] [address] [place] [address], [place] Potassium [Moles/Vol] 3.8 mmol/L Normal 3.5-5.1 [facility] Comment on above: Order Comment: No: D o not add to previous draw Performed By: #### 3 0477, 99590 #### [facility] [address] [place] [address], [place] Sodium [Moles/Vol] 138 mmol/L Normal 136-145 [facility] Comment on above: Order Comment: No: D o not add to previous draw Performed By: #### 3 0477, 44734 #### [facility] [address] [place] [address], [place] Urea nitrogen [Mass/Vol] 20 mg/dL Normal 7-25 [facility] Comment on above: Order Comment: No: D o not add to previous draw Performed By: #### 3 0477, 58127 #### [facility] [address] [place] [address], [place] CBC COMPLETE BLOOD COUNTon 0 - Erythrocyte distribution width (RBC) [Ratio] 12.9 % Normal 11.5-15.0 [facility] Comment on above: Order Comment: No: D o not add to previous draw Performed By: #### 8 5123 #### [facility] [address] [place] [address], [place] Hematocrit (Bld) [Volume fraction] 41.9 % Normal 39.0-50.0 [facility] Comment on above: Order Comment: No: D o not add to previous draw Performed By: #### 8 5123 #### [facility] [address] [place] [address], [place] Hemoglobin (Bld) [Mass/Vol] 13.8 g/dL Normal 13.0-17.0 [facility] Comment on above: Order Comment: No: D o not add to previous draw Performed By: #### 8 5123 #### [facility] [address] [place] [address], [facility] MCH (RBC) [Entitic mass] 30.0 pg Normal 27.0-33.0 [facility] Comment on above: Order Comment: No: D o not add to previous draw Performed By: #### 8 5123 #### [facility] [address] [place] [address], [facility] MCHC (RBC) [Mass/Vol] 32.9 g/dL Normal 32.0-35.0 [facility] Comment on above: Order Comment: No: D o not add to previous draw Performed By: #### 8 5123 #### [facility] [address] [place] [address], [facility] MCV (RBC) [Entitic vol] 91.1 fL Normal 82.0-98.0 [facility] Comment on above: Order Comment: No: D o not add to previous draw Performed By: #### 8 5123 #### [facility] [address] [place] [address], [facility] Nucleated RBC/100 WBC (Bld) [Ratio] 0 % Normal 0-0 [facility] Comment on above: Order Comment: No: D o not add to previous draw Performed By: #### 8 5123 #### [facility] [address] [place] [address], [place] PLAT CNT 224 10*3/uL Normal 150-400 [facility] Comment on above: Order Comment: No: D o not add to previous draw Performed By: #### 8 5123 #### [facility] [address] [place] [address], [facility] RBC (Bld) [#/Vol] 4.60 10*6/uL Normal 4.20-5.70 [facility] Comment on above: Order Comment: No: D o not add to previous draw Performed By: #### 8 5123 #### [facility] [address] [place] [address], [facility] WBC (Bld) [#/Vol] 8.65 10*3/uL Normal 4.00-10.60 [facility] Comment on above: Order Comment: No: D o not add to previous draw Performed By: #### 8 5123 #### [facility] [address] [place] [address], [facility] FREE T3on 11-01-2020 Free T3 [Mass/Vol] 2.8 pg/mL Normal 2.5-3.9 [facility] Comment on above: Order Comment: Yes: Add to Previous draw if able Performed By: #### 3 7, 51864 #### [facility] [address] [place] [address], [facility] FREE T4on 11-01-2020 Free T4 [Mass/Vol] 0.80 ng/dL Normal 0.71-1.85 [facility] Comment on above: Order Comment: Yes: Add to Previous draw if able Performed By: #### 3 7, 49276 #### [facility] [address] [place] [address], [facility] HEMOGLOBIN A1Con 11-01-2020 Glucose [Moles/Vol] 114 mmol/L Normal [facility] Comment on above: Order Comment: Yes: Add to Previous draw if able Performed By: #### 3 7, 42774 #### [facility] [address] [place] [address], [facility] HbA1c (Bld) [Mass fraction] 5.6 % Normal 4.0-6.0 [facility] Comment on above: Order Comment: Yes: Add to Previous draw if able Performed By: #### 3 476, 24376 #### [facility] [address] [place] [address], [facility] LIPID PROFILEon 11-01-2020 Cholesterol [Mass/Vol] 173 mg/dL Normal 120-200 [facility] Comment on above: Result Comment: CHOL ESTEROL REFERENCE RANGE: 20 YEARS AND OLDER CARDIOVASCULAR RISK Less than 200 mg/dl Low Risk 200 to 239 mg/dl Borderline Risk 240 mg/dl and greater High Risk Performed By: #### 3 476, 09128 #### [facility] [address] [place] [address], [place] Cholesterol in HDL [Mass/Vol] 44 mg/dL Normal 23-92 [facility] Comment on above: Result Comment: Slig ht variation in normal range could be due to gender and/or age. HDL CHOLESTEROL REFERENCE RANGE: 20 years and older Cardiovascular Risk > or =60 mg/dL Desirable 40 TO 59 mg/dL Low Risk <40 mg/dL High Risk Performed By: #### 3 476, 68433 #### [facility] [address] [place] [address], [place] Cholesterol in LDL [Mass/Vol] 115 mg/dL Normal 0-130 [facility] Comment on above: Result Comment: LDL IS A CALCULATION LDL IS ONLY VALID IF THE TRIG IS LESS THAN 400. Performed By: #### 3 476, 12253 #### [facility] [address] [place] [address], [place] Cholesterol.total/Ch olesterol in HDL [Mass ratio] 3.9 {ratio} Normal 0.0-4.5 [facility] Comment on above: Performed By: #### 3 476, 75325 #### [facility] [address] [place] [address], [place] NON-HDL CHOLESTEROL 129 mg/dL Normal [facility] Comment on above: Performed By: #### 3 476, 91472 #### [facility] [address] [place] [address], [place] Triglyceride [Mass/Vol] 70 mg/dL Normal 40-149 [facility] Comment on above: Result Comment: TRIG LYCERIDE REFERENCE RANGE: 20 YEARS AND OLDER CARDIOVASCULAR RISK LESS THAN 150 mg/dl LOW RISK 150 TO 199 mg/dl BORDERLINE RISK 200 mg/dl AND GREATER HIGH RISK Performed By: #### 3 0477, 28398 #### [facility] [address] [place] [address], [facility] VLDL CHOL 14 mg/dL Normal 0-40 [facility] Comment on above: Performed By: #### 3 0477, 05911 #### [facility] [address] [place] [address], [facility] MAGNESIUM BLOODon 11-01-2020 Magnesium [Mass/Vol] 2.6 mg/dL Normal 1.9-2.[address] [facility] Comment on above: Order Comment: No: D o not add to previous draw Performed By: #### 3 0477, 61364 #### [facility] [address] [place] [address], [facility] PHOSPHORUS BLOODon Phosphate [Mass/Vol] 2.9 mg/dL Normal 2.5-5.0 [facility] Comment on above: Order Comment: No: D o not add to previous draw Performed By: #### 3 0477, 84147 #### [facility] [address] [place] [address], [facility] PROCALCITONINon 11-01-2020 PROCALCITONIN 0.03 ng/mL Normal 0.00-0.10 [facility] Comment on above: Order Comment: No: D o not add to previous draw Result Comment: Susp ected Lower Respiratory Tract Infection: 0.1-0.25ng/mL- Low likelihood for bacterial infection;Antibiotics discouraged.* >0.25ng/mL- Increased likelihood bacterial infection;Antibiotics encouraged. Suspected Sepsis: Strongly consider initiating antibiotics in all unstable patients. 0.1-0.5ng/mL- Low likelihood for sepsis; Antibiotics discouraged.* >0.5ng/mL- Increased likelihood sepsis; Antibiotics encouraged. >2.0ng/mL- High risk of sepsis/septic shock; Antibiotics strongly encouraged. *Recommend retesting PCT within 6-12hours if clinically indicated and initial PCT<0.5ng/mL Performed By: #### 8 5123 #### [facility] [address] TROPONIN-Ion 11-01-2020 Troponin I.cardiac [Mass/Vol] 0.39 ng/mL Critically high 0.00-0.[address] [facility] Comment on above: Order Comment: No: D o not add to previous draw Result Comment: M-WI EVIOUS CRITICAL RESULT REFERENCE RANGES: 0.00 - 0.04 ng/ml NORMAL 0.05 - 0.50 ng/ml INDETERMINATE > 0.50 ng/ml CONSISTENT WITH AN M.I. Performed By: #### 3 0477, 48511 #### [facility] [address] [address], [facility] UFH HEPARIN ASSAYon 11-02-19 21 UNFRACTIONATED HEPARIN 0.82 IU/mL High 0.30-0.70 [facility] Comment on above: Result Comment: Gaby roxaban and Apixaban will interfere with the anti Xa assay used to monitor UFH and LMWH. Performed By: #### 3 1522, 89179, 67049, 86549 #### [facility] [address] [place] [address], [facility] UNFRACTIONATED HEPARIN 0.73 IU/mL High 0.30-0.70 [facility] Comment on above: Result Comment: Duryea roxaban and Apixaban will interfere with the anti Xa assay used to monitor UFH and LMWH. Performed By: #### 3 1522, 81965, 93336, 24860 #### [facility] [address] UNFRACTIONATED HEPARIN 0.95 IU/mL Critically high 0.30-0.[address] [facility] Comment on above: Result Comment: Gaby roxaban and Apixaban will interfere with the anti Xa assay used to monitor UFH and LMWH. RESULTS CHECKED AND CALLED. ACCURATELY READ BACK BY THERESA SANTO RN AT 0540 Performed By: #### 8 5123 #### [facility] [address] [facility] [address] UNFRACTIONATED HEPARIN <0.10 Critically low 0.30-0.70 [facility] Comment on above: Result Comment: Gaby roxaban and Apixaban will interfere with the anti Xa assay used to monitor UFH and LMWH. Results called. Accurately read back by Theresa Santo RN, CVU 3A patient's nurse, at 2316, 31-Oct-2020. Performed By: #### 3 0477, 50328 #### [facility] [address] [facility] [address] BNP (B-TYPE NATRIURETIC PEPT JOYCELYN)on 10-31-2020 Natriuretic peptide B (Bld) [Mass/Vol] 345 pg/mL High 0-100 [facility] Comment on above: Order Comment: No: D o not add to previous draw Result Comment: Give n the appropriate clinical setting a BNP result of >100 pg/mL indicates congestive heart failure. Performed By: #### 8 5123 #### [facility] [address] [facility] [address] CBC W/DIFFon 10-31-2020 ABS IMM GRANS 0.0 10*3/uL Normal 0.0-0.2 [facility] Comment on above: Order Comment: No: D o not add to previous draw Performed By: #### 8 5123 #### [facility] [address] [place] [address], [facility] ABS NEUTROPHILS 4.6 10*3/uL Normal 1.6-7.6 The [facility] Comment on above: Order Comment: No: D o not add to previous draw Performed By: #### 8 5123 #### [facility] [address] [place] [address], [facility] Basophils (Bld) [#/Vol] 0.0 10*3/uL Normal 0.0-0.2 [facility] Comment on above: Order Comment: No: D o not add to previous draw Performed By: #### 8 5123 #### [facility] [address] [place] [address], [facility] Basophils/100 WBC (Bld) 0.6 % Normal 0.0-1.0 [facility] Comment on above: Order Comment: No: D o not add to previous draw Performed By: #### 8 5123 #### [facility] [address] [place] [address], [facility] Eosinophils (Bld) [#/Vol] 0.1 10*3/uL Normal 0.0-0.5 [facility] Comment on above: Order Comment: No: D o not add to previous draw Performed By: #### 8 5123 #### [facility] [address] [place] [id number], [facility] Eosinophils/100 WBC (Bld) 2.0 % Normal 0.0-6.0 [facility] Comment on above: Order Comment: No: D o not add to previous draw Performed By: #### 8 5123 #### [facility] [address] [place] [id number], [facility] Erythrocyte distribution width (RBC) [Ratio] 13.1 % Normal 11.5-15.0 [facility] Comment on above: Order Comment: No: D o not add to previous draw Performed By: #### 8 5123 #### [facility] [address] [place] [address], [facility] Hematocrit (Bld) [Volume fraction] 42.5 % Normal 39.0-50.0 [facility] Comment on above: Order Comment: No: D o not add to previous draw Performed By: #### 8 5123 #### [facility] [address] [place] [address], [facility] Hemoglobin (Bld) [Mass/Vol] 14.4 g/dL Normal 13.0-17.0 [facility] Comment on above: Order Comment: No: D o not add to previous draw Performed By: #### 8 5123 #### [facility] [address] [place] [address], [facility] IMMATURE GRANS 0.3 % Normal 0.0-1.0 [facility] Comment on above: Order Comment: No: D o not add to previous draw Performed By: #### 8 5123 #### [facility] [address] [place] [address], [facility] Lymphocytes (Bld) [#/Vol] 1.9 10*3/uL Normal 1.2-4.0 [facility] Comment on above: Order Comment: No: D o not add to previous draw Performed By: #### 8 5123 #### [facility] [address] [place] [address], [facility] Lymphocytes/100 WBC (Bld) 26.8 % Normal 20.0-45.0 [facility] Comment on above: Order Comment: No: D o not add to previous draw Performed By: #### 8 5123 #### [facility] [address] [place] [id number], [facility] MCH (RBC) [Entitic mass] 30.1 pg Normal 27.0-33.0 [facility] Comment on above: Order Comment: No: D o not add to previous draw Performed By: #### 8 5123 #### [facility] [address] [place] [address], [facility] MCHC (RBC) [Mass/Vol] 33.9 g/dL Normal 32.0-35.0 [facility] Comment on above: Order Comment: No: D o not add to previous draw Performed By: #### 8 5123 #### [facility] [address] [place] [address], [facility] MCV (RBC) [Entitic vol] 88.7 fL Normal 82.0-98.0 [facility] Comment on above: Order Comment: No: D o not add to previous draw Performed By: #### 8 5123 #### [facility] [address] [place] [address], [facility] Monocytes (Bld) [#/Vol] 0.4 10*3/uL Normal 0.1-1.0 [facility] Comment on above: Order Comment: No: D o not add to previous draw Performed By: #### 8 5123 #### [facility] [address] [place] [address], [facility] MONOS 6.0 % Normal 5.0-12.0 [facility] Comment on above: Order Comment: No: D o not add to previous draw Performed By: #### 8 5123 #### [facility] [address] [place] [address], [facility] Neutrophils/100 WBC (Bld) 64.3 % Normal 40.0-72.0 [facility] Comment on above: Order Comment: No: D o not add to previous draw Performed By: #### 8 5123 #### [facility] [address] [place] [address], [facility] Nucleated RBC/100 WBC (Bld) [Ratio] 0 % Normal 0-0 [facility] Comment on above: Order Comment: No: D o not add to previous draw Performed By: #### 8 5123 #### [facility] [address] [place] [address], [facility] PLAT CNT 245 10*3/uL Normal 150-400 [facility] Comment on above: Order Comment: No: D o not add to previous draw Performed By: #### 8 5123 #### [facility] [address] [place] [address], [facility] RBC (Bld) [#/Vol] 4.79 10*6/uL Normal 4.20-5.70 The [facility] Comment on above: Order Comment: No: D o not add to previous draw Performed By: #### 8 5123 #### [facility] [address] [place] [id number], [facility] WBC (Bld) [#/Vol] 7.16 10*3/uL Normal 4.00-10.60 [facility] Comment on above: Order Comment: No: D o not add to previous draw Performed By: #### 8 5123 #### [facility] [address] [place] [address], [facility] COMP METABOLIC PANELon 10-31 Albumin [Mass/Vol] 4.0 g/dL Normal 3.5-5.7 [facility] Comment on above: Order Comment: No: D o not add to previous draw Performed By: #### 3 1522, 97421, 24683, 40294 #### [facility] [address] [place] [id number], [facility] ALKALINE PHOSPH 47 IU/L Normal 34-104 The [facility] Comment on above: Order Comment: No: D o not add to previous draw Performed By: #### 3 1522, 54593, 00278, 47958 #### [facility] [address] [place] [address], [facility] ALT [Catalytic activity/Vol] 11 U/L Normal 7-52 [facility] Comment on above: Order Comment: No: D o not add to previous draw Performed By: #### 3 1522, 62984, 12190, 63118 #### [facility] [address] [place] [address], [place] AST [Catalytic activity/Vol] 17 U/L Normal 13-39 [facility] Comment on above: Order Comment: No: D o not add to previous draw Performed By: #### 3 1522, 30374, 03981, 01887 #### [facility] [address] [place] [address], [place] Bilirubin [Mass/Vol] 0.4 mg/dL Normal 0.3-1.0 [facility] Comment on above: Order Comment: No: D o not add to previous draw Performed By: #### 3 1522, 97601, 67518, 50157 #### [facility] [address] [place] [address], [place] Calcium [Mass/Vol] 9.6 mg/dL Normal 8.6-10.3 [facility] Comment on above: Order Comment: No: D o not add to previous draw Performed By: #### 3 1522, 93607, 76480, 85139 #### [facility] [address] [place] [address], [place] Chloride [Moles/Vol] 100 mmol/L Normal 98-107 [facility] Comment on above: Order Comment: No: D o not add to previous draw Performed By: #### 3 1522, 27329, 42954, 46907 #### [facility] [address] [place] [address], [place] CO2 [Moles/Vol] 30 mmol/L Normal 21-31 [facility] Comment on above: Order Comment: No: D o not add to previous draw Performed By: #### 3 1522, 00648, 70718, 17404 #### [facility] [address] [place] [address], [place] Creatinine [Mass/Vol] 1.37 mg/dL High 0.70-1.30 [facility] Comment on above: Order Comment: No: D o not add to previous draw Performed By: #### 3 1522, 71545, 84039, 60664 #### [facility] [address] [place] [address], [facility] eGFR- 60 ml/min/1.73sq m Abnormal >60 [facility] Comment on above: Order Comment: No: D o not add to previous draw Result Comment: Calc ulation may not be valid for patients over 70 years Performed By: #### 3 1522, 44591, 51233, 24820 #### [facility] [address] [place] [address], [facility] eGFR- non- 50 ml/min/1.73sq m Abnormal >60 [facility] Comment on above: Order Comment: No: D o not add to previous draw Result Comment: Calc ulation may not be valid for patients over 70 years Performed By: #### 3 1522, 36003, 16252, 94323 #### [facility] [address] [place] [address], [place] Glucose [Mass/Vol] 99 mg/dL Normal 70-100 [facility] Comment on above: Order Comment: No: D o not add to previous draw Performed By: #### 3 1522, 15857, 82886, 54523 #### [facility] [address] [place] [address], [place] Potassium [Moles/Vol] 3.5 mmol/L Normal 3.5-5.1 [facility] Comment on above: Order Comment: No: D o not add to previous draw Performed By: #### 3 1522, 58355, 77515, 87246 #### [facility] [address] [place] [address], [place] Protein [Mass/Vol] 6.8 g/dL Normal 6.0-8.3 [facility] Comment on above: Order Comment: No: D o not add to previous draw Performed By: #### 3 1522, 83780, 43691, 17165 #### [facility] [address] [place] [id number], [facility] Sodium [Moles/Vol] 139 mmol/L Normal 136-145 [facility] Comment on above: Order Comment: No: D o not add to previous draw Performed By: #### 3 1522, 31942, 00781, 62320 #### [facility] [address] [place] [address], [facility] Urea nitrogen [Mass/Vol] 21 mg/dL Normal 7-25 [facility] Comment on above: Order Comment: No: D o not add to previous draw Performed By: #### 3 1522, 76247, 83019, 03353 #### [facility] [address] D DIMER TESTon 10-31-2020 D-DIMER TEST 0.64 mcg/mL FEU High 0.27-0.49 [facility] Comment on above: Order Comment: No: D o not add to previous draw Result Comment: D-Di sarah values of less than 0.50 ug/ml (FEU) are considered to be a negative predictor of thrombosis. However, the D-Dimer result should be used in conjunction with pretest probability and should not be used alone to diagnose a thrombotic event. Performed By: #### 8 5123 #### [facility] [address] [place] [id number], [facility] MAGNESIUM BLOODon 10-31-2020 Magnesium [Mass/Vol] 1.5 mg/dL Low 1.9-2.7 [facility] Comment on above: Order Comment: No: D o not add to previous draw Performed By: #### 3 1522, 21591, 29508, 95831 #### [facility] [address] [place] [address], [facility] TROPONIN-Ion 10-31-2020 Troponin I.cardiac [Mass/Vol] 0.57 ng/mL Critically high 0.00-0.[address] [facility] Comment on above: Order Comment: No: D o not add to previous draw Result Comment: M-CR ITICAL RESULT(S) REVIEWED, CALLED TO AND READ BACK BY FELECIA FARFANYesica @213 10.31.20 REFERENCE RANGES: 0.00 - 0.04 ng/ml NORMAL 0.05 - 0.50 ng/ml INDETERMINATE > 0.50 ng/ml CONSISTENT WITH AN M.I. Performed By: #### 3 1522, 61583, 62356, 52306 #### [facility] [address] TSH3on 10-31-2020 TSH 3RD GENERATION 6.84 uIU/mL High 0.34-5.60 [facility] Comment on above: Order Comment: No: D o not add to previous draw Performed By: #### 3 1522, 69453, 63354, 01827 #### [facility] [address] CBC Auto Differentialon 04-12 Basophils (Bld) [#/Vol] 0.00 10*3/uL [place], [place] Basophils/100 WBC (Bld) 0 % 0 - 2 % [place] Differential Type YES [place] Eosinophils (Bld) [#/Vol] 0.20 10*3/uL [place] Eosinophils/100 WBC (Bld) 2 % 0 - 5 % [place] Erythrocyte distribution width (RBC) [Ratio] 13.8 % 12.1 - 15.2 % [place] Hematocrit (Bld) [Volume fraction] 42.1 % 41 - 53 % [place] Hemoglobin (Bld) [Mass/Vol] 14.3 g/dL 13.5 - 17.5 g/dL [place] Lymphocytes (Bld) [#/Vol] 2.60 10*3/uL [place] Lymphocytes/100 WBC (Bld) 35 % 13 - 44 % [place] MCH (RBC) [Entitic mass] 31.0 pg 26 - 34 pg [place] MCHC (RBC) [Mass/Vol] 33.9 g/dL 31 - 37 g/dL [place] MCV (RBC) [Entitic vol] 91.5 fL 80 - 100 fL [place] Monocytes (Bld) [#/Vol] 0.40 10*3/uL [place] Monocytes/100 WBC (Bld) 6 % 5 - 9 % [place] Platelet mean volume (Bld) [Entitic vol] NOT REPORTED 6 - 12 fL [place], [place] Platelets (Bld) [#/Vol] NOT REPORTED [place] Platelets (Bld) [#/Vol] 274 10*3/uL [place] RBC (Bld) [#/Vol] 4.60 10*6/uL 4.5 - 5.9 m/uL [place] RBC morphology finding Nom (Bld) NOT REPORTED [place] Segmented neutrophils/100 WBC (Bld) 57 % 39 - 75 % [place] Segs Absolute 4.20 [place] WBC (Bld) [#/Vol] 7.4 10*3/uL [place] WBC (Bld) [#/Vol] NOT REPORTED per 100 WBC [place] WBC Morphology NOT REPORTED [place], [place] CBC with Diffon 04-30-2020 Abs. Basophil 0.00 k/uL Normal 0.0-0.2 [facility] Comment on above: Performed By: #### Z FAST, TSHX, MG, CP, CDP #### [facility] [address] [place] [address] [place]: Elio Pate MD #### VD25, LIPR #### [facility] [address] [place] [address] [place]: Jose Manuel Corona MD Abs.Neutrophil (Seg) 4.20 k/uL Normal 2.1-6.5 [facility] Comment on above: Performed By: #### Z FAST, TSHX, MG, CP, CDP #### [facility] [address] [place] [address] [place]: Elio Pate MD #### VD25, LIPR #### [address] [address] [place]: Jose Manuel Corona MD Auto Diff Performed YES Normal [facility] Comment on above: Performed By: #### Z FAST, TSHX, MG, CP, CDP #### [facility] [address] [place] [id number] [place]: Elio Pate MD #### VD25, LIPR #### [address] [id number] [place]yer: Jose Manuel Corona MD Basophils/100 WBC (Bld) 0 % Normal 0-2 [facility] Comment on above: Performed By: #### Z FAST, TSHX, MG, CP, CDP #### [facility] [address] [place] [address] [place]yer: Elio Pate MD #### VD25, LIPR #### [address] [id number] [place]: Jose Manuel Corona MD Eosinophils (Bld) [#/Vol] 0.20 10*3/uL Normal 0.0-0.4 [facility] Comment on above: Performed By: #### Z FAST, TSHX, MG, CP, CDP #### [facility] [address] [place] [address] [place]yer: Elio Pate MD #### VD25, LIPR #### [address] [id number] [place]yer: Jose Manuel Corona MD Eosinophils/100 WBC (Bld) 2 % Normal 0-5 [facility] Comment on above: Performed By: #### Z FAST, TSHX, MG, CP, CDP #### [facility] [address] [place] [id number] [place]yer: Elio Pate MD #### VD25, LIPR #### [address] [id number] [place]: Jose Manuel Corona MD Erythrocyte distribution width (RBC) [Ratio] 13.8 % Normal 12.1-15.2 [facility] Comment on above: Performed By: #### Z FAST, TSHX, MG, CP, CDP #### [facility] [address] [place] [id number] [place]yer: Elio Pate MD #### VD25, LIPR #### [place] [id number] Hog Sawyer: Jose Manuel Corona MD Hematocrit (Bld) [Volume fraction] 42.1 % Normal 41-53 [facility] Comment on above: Performed By: #### Z FAST, TSHX, MG, CP, CDP #### [facility] [address] [place] [phone] [place]yer: Elio Pate MD #### VD25, LIPR #### [place] [id number] [place]yer: Jose Manuel Corona MD Hemoglobin (Bld) [Mass/Vol] 14.3 g/dL Normal 13.5-17.5 [facility] Comment on above: Performed By: #### Z FAST, TSHX, MG, CP, CDP #### [facility] [address] [place] [phone] [place]yer: Elio Pate MD #### VD25, LIPR #### [address] [phone] Hog [place]yer: Jose Manuel Corona MD Lymphocytes (Bld) [#/Vol] 2.60 10*3/uL Normal 1.0-4.8 [facility] Comment on above: Performed By: #### Z FAST, TSHX, MG, CP, CDP #### [facility] [address] [place] [address] [place]yer: Elio Pate MD #### VD25, LIPR #### [address] [phone] [place]yer: Jose Manuel Corona MD Lymphocytes/100 WBC (Bld) 35 % Normal 13-44 [facility] Comment on above: Performed By: #### Z FAST, TSHX, MG, CP, CDP #### [facility] [address] [place] [address] [place]yer: Elio Pate MD #### VD25, LIPR #### [address] [phone] [place]yer: Jose Manuel Corona MD MCH (RBC) [Entitic mass] 31.0 pg Normal 26-34 [facility] Comment on above: Performed By: #### Z FAST, TSHX, MG, CP, CDP #### [facility] [address] [place] [address] [place] Sawyer: Elio Pate MD #### VD25, LIPR #### [facility] [address] [place] [address] [id number] [place]yer: Jose Manuel Corona MD MCHC (RBC) [Mass/Vol] 33.9 g/dL Normal 31-37 [facility] Comment on above: Performed By: #### Z FAST, TSHX, MG, CP, CDP #### [facility] [address] [place] [address] Hog Sawyer: Elio Pate MD #### VD25, LIPR #### [facility] [address] [place] [address] [place] [id number] [place]yer: Jose Manuel Corona MD MCV (RBC) [Entitic vol] 91.5 fL Normal 80-100 [facility] Comment on above: Performed By: #### Z FAST, TSHX, MG, CP, CDP #### [facility] [address] [place] [address] Hog Sawyer: Elio Pate MD #### VD25, LIPR #### [address] [phone] Hog Sawyer: Jose Manuel Corona MD Monocytes (Bld) [#/Vol] 0.40 10*3/uL Normal 0.0-1.0 [facility] Comment on above: Performed By: #### Z FAST, TSHX, MG, CP, CDP #### [facility] [address] [place] [address] Hog Sawyer: Elio Pate MD #### VD25, LIPR #### [address] [address] Hog Sawyer: Jose Manuel Corona MD Monocytes/100 WBC (Bld) 6 % Normal 5-9 [facility] Comment on above: Performed By: #### Z FAST, TSHX, MG, CP, CDP #### [facility] [address] [place] [address] Hog Sawyer: Elio Pate MD #### VD25, LIPR #### [address] [address] Hog Sawyer: Jose Manuel Corona MD Neutrophil (Seg) 57 % Normal 39-75 [facility] Comment on above: Performed By: #### Z FAST, TSHX, MG, CP, CDP #### [facility] [address] [place], [place] [phone] Hog Sawyer: Elio Pate MD #### VD25, LIPR #### [address] [address] [place], [place] [phone] Hog Sawyer: Jose Manuel Corona MD Platelets (Bld) [#/Vol] 274 10*3/uL Normal 140-450 [facility] Comment on above: Performed By: #### Z FAST, TSHX, MG, CP, CDP #### [facility] [address] [place] [phone] Hog Sawyer: Elio Pate MD #### VD25, LIPR #### [address] [phone] Hog Sawyer: Jose Manuel Corona MD RBC (Bld) [#/Vol] 4.60 10*6/uL Normal 4.5-5.9 [facility] Comment on above: Performed By: #### Z FAST, TSHX, MG, CP, CDP #### [facility] [address] [place] [address] Hog Sawyer: Elio Pate MD #### VD25, LIPR #### [address] [phone] Hog Sawyer: Jose Manuel Corona MD WBC (Bld) [#/Vol] 7.4 10*3/uL Normal 3.5-11.0 [facility] Comment on above: Performed By: #### Z FAST, TSHX, MG, CP, CDP #### [facility] [address] [place] [phone] Hog Sawyer: Elio Pate MD #### VD25, LIPR #### [address] [phone] Hog Sawyer: Jose Manuel Corona MD Abs.Imm.Granulocyte NOT REPORTED Normal 0.00-0.30 [facility] Comment on above: Performed By: #### Z FAST, TSHX, MG, CP, CDP #### [facility] [address] [place] [phone] Hog Sawyer: Elio Pate MD #### VD25, LIPR #### [facility] [address] [place], [place] [phone] Hog Sawyer: Jose Manuel Corona MD Immature granulocytes (Bld) [#/Vol] NOT REPORTED Normal 0 [facility] Comment on above: Performed By: #### Z FAST, TSHX, MG, CP, CDP #### [facility] [address] [place] [address] Hog Sawyer: Elio Pate MD #### VD25, LIPR #### [address] [address] Hog Sawyer: Jose Manuel Corona MD NRBC Automated NOT REPORTED Normal [facility] Comment on above: Performed By: #### Z FAST, TSHX, MG, CP, CDP #### [facility] [address] [place] [address] Hog Sawyer: Elio Pate MD #### VD25, LIPR #### [phone] [place], [place] [phone] Hog Sawyer: Jose Manuel Corona MD Platelet mean volume (Bld) [Entitic vol] NOT REPORTED Normal 6.0-12.0 [facility] Comment on above: Performed By: #### Z FAST, TSHX, MG, CP, CDP #### [facility] [address] [place] [address] Hog Sawyer: lEio Pate MD #### VD25, LIPR #### [facility] [address] [place] [address] Hog Sawyer: Jose Manuel Corona MD Platelets (Bld) [#/Vol] NOT REPORTED Normal [facility] Comment on above: Performed By: #### Z FAST, TSHX, MG, CP, CDP #### [facility] [address] [place] [address] Hog Sawyer: Elio Pate MD #### VD25, LIPR #### [address] [phone] Hog Sawyer: Jose Manuel Corona MD RBC morphology finding Nom (Bld) NOT REPORTED Normal [facility] Comment on above: Performed By: #### Z FAST, TSHX, MG, CP, CDP #### [facility] [address] [place] [address] Hog Sawyer: Elio Pate MD #### VD25, LIPR #### [address] [phone] Hog Sawyer: Jose Manuel Corona MD WBC Morphology NOT REPORTED Normal [facility] Comment on above: Performed By: #### Z FAST, TSHX, MG, CP, CDP #### [facility] [address] [place] [address] Hog Sawyer: Elio Pate MD #### VD25, LIPR #### [address] [phone] Hog Sawyer: Jose Manuel Corona MD Comp Metabolic Profon 2019 (cont.) [facility] Comment on above: Result Comment: Aver age GFR for 70 or more years old: 75 mL/min/1.73sq m Chronic Kidney Disease: <60 mL/min/1.73sq m Kidney failure: <15 mL/min/1.73sq m eGFR calculated using average adult body mass. Additional eGFR calculator available at: http://www.Nifty After Fifty.com/multiple_crcl_2012.htm Performed By: #### Z FAST, TSHX, MG, CP, CDP #### [facility] [address] [place] [address] Hog Sawyer: Elio Pate MD #### VD25, LIPR #### [address] [phone] Hog Sawyer: Jose Manuel Corona MD Albumin [Mass/Vol] 4.4 g/dL Normal 3.5-5.2 [facility] Comment on above: Performed By: #### Z FAST, TSHX, MG, CP, CDP #### [facility] [address] [place], [place] [phone] Hog Sawyer: Elio Pate MD #### VD25, LIPR #### [address] [phone] Hog Sawyer: Jose Manuel Corona MD Alkaline Phos 61 U/L Normal 40-129 [facility] Comment on above: Performed By: #### Z FAST, TSHX, MG, CP, CDP #### [facility] [address] [place] [address] Hog Sawyer: Elio Pate MD #### EYAL25, LIPR #### [address] [phone] Hog Sawyer: Jose Manuel Corona MD ALT [Catalytic activity/Vol] 14 U/L Normal 5-41 [facility] Comment on above: Performed By: #### Z FAST, TSHX, MG, CP, CDP #### [facility] [address] [place] [address] Hog Sawyer: Elio Pate MD #### VD25, LIPR #### [address] [phone] Hog Sawyer: Jose Manuel Corona MD Anion gap [Moles/Vol] 10 mmol/L Normal 9-17 [facility] Comment on above: Performed By: #### Z FAST, TSHX, MG, CP, CDP #### [facility] [address] [place], [place] [phone] Hog Sawyer: Elio Pate MD #### VD25, LIPR #### [address] [phone] Hog Sawyer: Jose Manuel Corona MD AST [Catalytic activity/Vol] 17 U/L Normal <40 [facility] Comment on above: Performed By: #### Z FAST, TSHX, MG, CP, CDP #### [facility] [address] [place], [place] [phone] Hog Sawyer: Elio Pate MD #### VD25, LIPR #### [address] [phone] Hog Sawyer: Jose Manuel Corona MD Bilirubin Ql (U) 0.53 mg/dL Normal 0.30-1.20 [facility] Comment on above: Performed By: #### Z FAST, TSHX, MG, CP, CDP #### [facility] [address] [place] [address] Hog Sawyer: Elio Pate MD #### EYAL25, LIPR #### [address] [phone] Hog Sawyer: Jose Manuel Corona MD BUN/CRE Ratio 18 Normal 9-20 [facility] Comment on above: Performed By: #### Guicho FAST, TSHX, MG, CP, CDP #### [facility] [address] [place], [place] [phone] Hog Sawyer: Elio Pate MD #### VD25, LIPR #### [address] [phone] Hog Sawyer: Jose Manuel Corona MD Calcium [Mass/Vol] 11.1 mg/dL High 8.6-10.4 [facility] Comment on above: Performed By: #### Z FAST, TSHX, MG, CP, CDP #### [facility] [address] [place], [place] [phone] Hog Sawyer: Elio Pate MD #### VD25, LIPR #### [address] [phone] Hog Sawyer: Jose Manuel Corona MD Chloride [Moles/Vol] 101 mmol/L Normal 98-107 [facility] Comment on above: Performed By: #### Z FAST, TSHX, MG, CP, CDP #### [facility] [address] [place], [place] [phone] Hog Sawyer: Elio Pate MD #### VD25, LIPR #### [address] [phone] Hog Sawyer: Jose Manuel Corona MD CO2 [Moles/Vol] 30 mmol/L Normal 20-31 [facility] Comment on above: Performed By: #### Z FAST, TSHX, MG, CP, CDP #### [facility] [address] [place], [place] [phone] Hog Sawyer: Elio Pate MD #### VD25, LIPR #### [address] [phone] Hog Sawyer: Jose Manuel Corona MD Creatinine [Mass/Vol] 1.48 mg/dL High 0.70-1.20 [facility] Comment on above: Performed By: #### Z FAST, TSHX, MG, CP, CDP #### [facility] [address] [place], [place] [phone] Hog Sawyer: Elio Pate MD #### VD25, LIPR #### [address] [phone] Hog Sawyer: Jose Manuel Corona MD GFR, Amer 55 mL/min Low >60 [facility] Comment on above: Performed By: #### Z FAST, TSHX, MG, CP, CDP #### [facility] [address] [place], [place] [phone] Hog Sawyer: Elio Pate MD #### VD25, LIPR #### [address] [phone] Hog Sawyer: Jose Manuel Corona MD GFR,non Amer 46 mL/min Low >60 [facility] Comment on above: Performed By: #### Z FAST, TSHX, MG, CP, CDP #### [facility] [address] [place], [place] [phone] Hog Sawyer: Elio Pate MD #### VD25, LIPR #### [address] [phone] Hog Sawyer: Jose Manuel Corona MD Glucose [Mass/Vol] 89 mg/dL Normal 70-99 [facility] Comment on above: Performed By: #### Z FAST, TSHX, MG, CP, CDP #### [facility] [address] [place], [place] [phone] Hog Sawyer: Elio Pate MD #### VD25, LIPR #### [address] [phone] Hog Sawyer: Jose Manuel Corona MD Potassium [Moles/Vol] 3.8 mmol/L Normal 3.7-5.3 [facility] Comment on above: Performed By: #### Z FAST, TSHX, MG, CP, CDP #### [facility] [address] [place], [place] [phone] Hog Sawyer: Elio Pate MD #### VD25, LIPR #### [address] [phone] Hog Sawyer: Jose Manuel Corona MD Protein [Mass/Vol] 7.4 g/dL Normal 6.4-8.3 [facility] Comment on above: Performed By: #### Z FAST, TSHX, MG, CP, CDP #### [facility] [address] [place], [place] [phone] Hog Sawyer: Elio Pate MD #### VD25, LIPR #### [address], [place] [phone] Hog Sawyer: Jose Manuel Corona MD Sodium [Moles/Vol] 141 mmol/L Normal 135-144 [facility] Comment on above: Performed By: #### Z FAST, TSHX, MG, CP, CDP #### [facility] [address] [place] [address] Hog Sawyer: Elio Pate MD #### VD25, LIPR #### [address] [phone] Hog Sawyer: Jose Manuel Corona MD Urea nitrogen [Mass/Vol] 26 mg/dL High 8-23 [facility] Comment on above: Performed By: #### Z FAST, TSHX, MG, CP, CDP #### [facility] [address] [place], [place] [phone] Hog Sawyer: Elio Pate MD #### VD25, LIPR #### [address] [phone] Hog Sawyer: Jose Manuel Corona MD Albumin/Globulin [Mass ratio] NOT REPORTED Normal 1.0-2.5 [facility] Comment on above: Performed By: #### Z FAST, TSHX, MG, CP, CDP #### [facility] [address] [place], [place] [phone] Hog Sawyer: Elio Pate MD #### VD25, LIPR #### [address] [place], [place] [phone] Hog Sawyer: Jose Manuel Corona MD Staging: NOT REPORTED Normal [facility] Comment on above: Performed By: #### Z FAST, TSHX, MG, CP, CDP #### [facility] [address] [place], [place] [phone] Hog Sawyer: Elio Pate MD #### VD25, LIPR #### [address] [address] Hog Sawyer: Jose Manuel Corona MD Comprehensive Metabolic Pane [facility] 04-30-2020 Albumin [Mass/Vol] 4.4 g/dL 3.5 - 5.2 g/dL [place] Albumin/Globulin [Mass ratio] NOT REPORTED [place] ALP [Catalytic activity/Vol] 61 U/L 40 - 129 U/L [place] ALT [Catalytic activity/Vol] 14 U/L 5 - 41 U/L [place] Anion gap [Moles/Vol] 10 mmol/L 9 - 17 mmol/L [place] AST [Catalytic activity/Vol] 17 U/L <40 [place] Bilirubin Ql (U) 0.53 mg/dL 0.3 - 1.2 mg/dL [place] Bun/Cre Ratio 18 [place] Calcium [Mass/Vol] 11.1 mg/dL High 8.6 - 10. 4 mg/dL [place] Chloride [Moles/Vol] 101 mmol/L 98 - 10 7 mmol/L [place] CO2 [Moles/Vol] 30 mmol/L 20 - 31 mmol/L [place] Creatinine [Mass/Vol] 1.48 mg/dL High 0.7 - 1.2 mg/dL [place] GFR 55 mL/min Low >60 [place] GFR Non- 46 mL/min Low >60 [place] GFR/1.73 sq M predicted among non-blacks MDRD (S/P/Bld) [Vol rate/Area] NOT REPORTED [place] GFR/1.73 sq M predicted among non-blacks MDRD (S/P/Bld) [Vol rate/Area] [place] Comment on above: Average GFR for 70 o r more years old: 75 mL/min/1.73sq m Chronic Kidney Disease: <60 mL/min/1.73sq m Kidney failure: <15 mL/min/1.73sq m eGFR calculated using average adult body mass. Additional eGFR calculator available at: http://www.globalrph.Cordia/multiple_crcl_2012.htm Glucose [Mass/Vol] 89 mg/dL 70 - 99 mg/dL [place] Interpretation and review of laboratory results Abnormal [place] Potassium [Moles/Vol] 3.8 mmol/L 3.7 - 5.3 mmol/L [place] Protein [Mass/Vol] 7.4 g/dL 6.4 - 8.3 g/dL [place] Sodium [Moles/Vol] 141 mmol/L 135 - 144 mmol/L [place] Urea nitrogen [Mass/Vol] 26 mg/dL High 8 - 23 mg/dL [place] Lipid Panelon 04-30-2020 Cholesterol [Mass/Vol] 152 mg/dL <200 [place] Comment on above: Cholesterol Guidelines: <200 Desirable 200-240 Borderline >240 Undesirable Cholesterol in HDL [Mass/Vol] 48 mg/dL >40 [place] Comment on above: HDL Guidelines: <40 Undesirable 40-59 Borderline >59 Desirable Cholesterol in LDL [Mass/Vol] 89 mg/dL 0 - 130 mg/dL [place] Comment on above: LDL Guidelines: <100 Desirable 100-129 Near to/above Desirable 130-159 Borderline >159 Undesirable Direct (measured) LDL and calculated LDL are not interchangeable tests. Cholesterol in VLDL [Mass/Vol] NOT REPORTED 1 - 30 mg/dL [place] Cholesterol.total/Ch olesterol in HDL [Mass ratio] 3.2 {ratio} <5 [place] Triglyceride [Mass/Vol] 75 mg/dL <150 [place] Comment on above: Triglyceride Guidelines: <150 Desirable 150-199 Borderline 200-499 High >499 Very high Based on AHA Guidelines for fasting triglyceride, March 2012. Lipid Profileon 04-30-2020 Cholesterol [Mass/Vol] 152 mg/dL Normal <200 [facility] Comment on above: Result Comment: Cholesterol Guidelines: <200 Desirable 200-240 Borderline >240 Undesirable Performed By: #### Z FAST, TSHX, MG, CP, CDP #### [facility] [address] [place] [address] Hog Sawyer: Elio Pate MD #### VD25, LIPR #### [facility] [address] [place] [address] Hog Sawyer: Jose Manuel Corona MD Cholesterol in HDL [Mass/Vol] 48 mg/dL Normal >40 [facility] Comment on above: Result Comment: HDL Guidelines: <40 Undesirable 40-59 Borderline >59 Desirable Performed By: #### Z FAST, TSHX, MG, CP, CDP #### [facility] [address] [place] [address] Hog Sawyer: Elio Pate MD #### VD25, LIPR #### [phone] [place] [address] Hog Sawyer: Jose Manuel Corona MD Cholesterol in LDL [Mass/Vol] 89 mg/dL Normal 0-130 [facility] Comment on above: Result Comment: LDL Guidelines: <100 Desirable 100-129 Near to/above Desirable 130-159 Borderline >159 Undesirable Direct (measured) LDL and calculated LDL are not interchangeable tests. Performed By: #### Z FAST, TSHX, MG, CP, CDP #### [facility] [address] [place] [address] Hog Sawyer: Elio Pate MD #### VD25, LIPR #### [address] [address] [place] [address] Hog Sawyer: Jose Manuel Corona MD Cholesterol.total/Ch olesterol in HDL [Mass ratio] 3.2 {ratio} Normal <5 [facility] Comment on above: Performed By: #### Z FAST, TSHX, MG, CP, CDP #### [facility] [address] [place] [address] Hog Sawyer: Elio Pate MD #### VD25, LIPR #### [facility] [place] [address] Hog Sawyer: Jose Manuel Corona MD Triglyceride [Mass/Vol] 75 mg/dL Normal <150 [facility] Comment on above: Result Comment: Triglyceride Guidelines: <150 Desirable 150-199 Borderline 200-499 High >499 Very high Based on AHA Guidelines for fasting triglyceride, March 2012. Performed By: #### Z FAST, TSHX, MG, CP, CDP #### [facility] [address] [place], [place] [phone] Hog Sawyer: Elio Pate MD #### VD25, LIPR #### [facility] [address] [place] [address] [phone] Hog Sawyer: Jose Manuel Corona MD Cholesterol in VLDL [Mass/Vol] NOT REPORTED Normal 07-11 [facility] Comment on above: Performed By: #### Z FAST, TSHX, MG, CP, CDP #### [facility] [address] [place], [place] [phone] Hog Sawyer: Elio Pate MD #### VD25, LIPR #### [facility] [address] [place] [address] [phone] Hog Sawyer: Jose Manuel Corona MD Magnesiumon 04-30-2020 Magnesium [Mass/Vol] 1.7 mg/dL Normal 1.6-2.6 [facility] Comment on above: Performed By: #### Z FAST, TSHX, MG, CP, CDP #### [facility] [address] [place], [place] [phone] Hog Sawyer: Elio Pate MD #### VD25, LIPR #### [address] [phone] Hog Sawyer: Jose Manuel Corona MD Magnesium [Mass/Vol] 1.7 mg/dL 1.6 - 2 .6 mg/dL [place] Otheron 04-30-2020 Immature granulocytes (Bld) [#/Vol] NOT REPORTED [place] Patient Fasting?on 0 Patient Fasting? YES [place] Patient fasting?on 0 Patient fasting? YES Normal [facility] Comment on above: Performed By: #### Z FAST, TSHX, MG, CP, CDP #### [facility] [address] [place] [address] Hog Sawyer: Elio Pate MD #### VD25, LIPR #### [facility] [place], [place] [phone] Hog Sawyer: Jose Manuel Corona MD TSH w/reflex to FT4on 2019 TSH Qn 3.67 m[IU]/L Normal 0.30-5.00 [facility] Comment on above: Performed By: #### Z FAST, TSHX, MG, CP, CDP #### [facility] [address] [place] [address] Hog Sawyer: Elio Pate MD #### VD25, LIPR #### [facility] [address] [place], [place] [phone] Hog Sawyer: Jose Manuel Corona MD TSH with Reflexon 04-30-2020 TSH Qn 3.67 m[IU]/L [place], [place] Vitamin D 25 Hydroxyon 04-30 Vit D, 25-Hydroxy 48.9 ng/mL 30 - 100 ng/mL [place] Comment on above: Reference Range: Vitamin D status Range Deficiency <20 ng/mL Mild Deficiency 20-30 ng/mL Sufficiency 30-100 ng/mL Toxicity >100 ng/mL Vitamin D 25 OHon 04-30-2020 Vitamin D 25 OH 48.9 ng/mL Normal 30.0-100.0 [facility] Comment on above: Result Comment: Reference Range: Vitamin D status Range Deficiency <20 ng/mL Mild Deficiency 20-30 ng/mL Sufficiency 30-100 ng/mL Toxicity >100 ng/mL Performed By: #### Z FAST, TSHX, MG, CP, CDP #### [facility] [address] [place] [address] Hog Sawyer: Elio Pate MD #### VD25, LIPR #### [employer] [address] [place] [address] Hog Sawyer: Jose Manuel Corona MD XR CHEST (2 VW)on 04-30-2020 XR CHEST (2 VW) EXAM: XR CHEST (2 VW ) HISTORY: Reason for exam:->a fib COMPARISON: Chest 04/16/2019 TECHNIQUE: 2 views chest FINDINGS: The aorta is dilated and tortuous including prominent ascending aorta arch and descending aorta. 5 mm calcified granuloma overlying the lateral left anterior 6th rib. Surgical clips in the right upper quadrant abdomen. No failure, pneumonia, or effusion. IMPRESSION: Dilated tortuous aorta. Small granuloma left lung of no significance. Interpreted by: Yung Akhtar Jr., MD Signed by: Yung Akhtar Jr., MD 04/30/20 Final result Normal [facility] Granulocytes/100 WBC (Bld) Dilated tortuous aorta. Small granuloma left lung of no significance. [place] EXAM: XR CHEST (2 VW ) HISTORY: Reason for exam:->a fib COMPARISON: Chest 04/16/2019 TECHNIQUE: 2 views chest FINDINGS: The aorta is dilated and tortuous including prominent ascending aorta arch and descending aorta. 5 mm calcified granuloma overlying the lateral left anterior 6th rib. Surgical clips in the right upper quadrant abdomen. No failure, pneumonia, or effusion. [place] [employer], [employer] Incoming Radiant Results From [employer] - 04/30/2020 12:37 PM EST EXAM: XR CHEST (2 VW) HISTORY: Reason for exam:->a fib COMPARISON: Chest 04/16/2019 TECHNIQUE: 2 views chest FINDINGS: The aorta is dilated and tortuous including prominent ascending aorta arch and descending aorta. 5 mm calcified granuloma overlying the lateral left anterior 6th rib. Surgical clips in the right upper quadrant abdomen. No failure, pneumonia, or effusion. IMPRESSION: Dilated tortuous aorta. Small granuloma left lung of no significance. [place] CBC Auto Differentialon Basophils (Bld) [#/Vol] 0.00 10*3/uL [place] Basophils/100 WBC (Bld) 1 % 0 - 2 % [place] Differential Type YES [place] Eosinophils (Bld) [#/Vol] 0.10 10*3/uL [place] Eosinophils/100 WBC (Bld) 1 % 0 - 5 % [place] Erythrocyte distribution width (RBC) [Ratio] 13.6 % 12.1 - 15.2 % [place] Hematocrit (Bld) [Volume fraction] 43.1 % 41 - 53 % [place] Hemoglobin (Bld) [Mass/Vol] 14.5 g/dL 13.5 - 17.5 g/dL [place] Lymphocytes (Bld) [#/Vol] 2.60 10*3/uL [place] Lymphocytes/100 WBC (Bld) 34 % 13 - 44 % [place] MCH (RBC) [Entitic mass] 31.3 pg 26 - 34 pg [place] MCHC (RBC) [Mass/Vol] 33.7 g/dL 31 - 37 g/dL [place] MCV (RBC) [Entitic vol] 92.8 fL 80 - 100 fL [place] Monocytes (Bld) [#/Vol] 0.50 10*3/uL [place] Monocytes/100 WBC (Bld) 7 % 5 - 9 % [place] Platelet mean volume (Bld) [Entitic vol] NOT REPORTED 6 - 12 fL [place] Platelets (Bld) [#/Vol] 265 10*3/uL [place] Platelets (Bld) [#/Vol] NOT REPORTED [place] RBC (Bld) [#/Vol] 4.64 10*6/uL 4.5 - 5.9 m/uL [place] RBC morphology finding Nom (Bld) NOT REPORTED [place] Segmented neutrophils/100 WBC (Bld) 57 % 39 - 75 % [place] Segs Absolute 4.40 [place] WBC (Bld) [#/Vol] NOT REPORTED per 100 WBC [place] WBC (Bld) [#/Vol] 7.7 10*3/uL [place] WBC Morphology NOT REPORTED [place] Comprehensive Metabolic Pane oliva 04-16-2019 Albumin [Mass/Vol] 4.6 g/dL 3.5 - 5.2 g/dL [place] Albumin/Globulin [Mass ratio] NOT REPORTED [place] ALP [Catalytic activity/Vol] 75 U/L 40 - 129 U/L [place] ALT [Catalytic activity/Vol] 12 U/L 5 - 41 U/L [place] Anion gap [Moles/Vol] 14 mmol/L 9 - 17 mmol/L [place] AST [Catalytic activity/Vol] 16 U/L <40 [place] Bilirubin Ql (U) 0.83 mg/dL 0.3 - 1.2 mg/dL [place] Bun/Cre Ratio 19 [place] Calcium [Mass/Vol] 10.5 mg/dL High 8.6 - 10. 4 mg/dL [place] Chloride [Moles/Vol] 100 mmol/L 98 - 10 7 mmol/L [place] CO2 [Moles/Vol] 24 mmol/L 20 - 31 mmol/L [place] Creatinine [Mass/Vol] 1.54 mg/dL High 0.7 - 1.2 mg/dL [place] GFR 53 mL/min Low >60 [place] GFR Non- 44 mL/min Low >60 [place] GFR/1.73 sq M predicted among non-blacks MDRD (S/P/Bld) [Vol rate/Area] [place] Comment on above: Average GFR for 70 o r more years old: 75 mL/min/1.73sq m Chronic Kidney Disease: <60 mL/min/1.73sq m Kidney failure: <15 mL/min/1.73sq m eGFR calculated using average adult body mass. Additional eGFR calculator available at: http://www.Nifty After Fifty.Cordia/multiple_crcl_2012.htm GFR/1.73 sq M predicted among non-blacks MDRD (S/P/Bld) [Vol rate/Area] NOT REPORTED [place] Glucose [Mass/Vol] 98 mg/dL 70 - 99 mg/dL [place] Potassium [Moles/Vol] 4.0 mmol/L 3.7 - 5.3 mmol/L [place] Protein [Mass/Vol] 8.1 g/dL 6.4 - 8.3 g/dL [place] Sodium [Moles/Vol] 138 mmol/L 135 - 144 mmol/L [place] Urea nitrogen [Mass/Vol] 30 mg/dL High 8 - 23 mg/dL [place] Lipid Panelon 04-16-2019 Cholesterol [Mass/Vol] 208 mg/dL High <200 [place] Comment on above: Cholesterol Guidelines: <200 Desirable 200-240 Borderline >240 Undesirable Cholesterol in HDL [Mass/Vol] 59 mg/dL >40 [place] Comment on above: HDL Guidelines: <40 Undesirable 40-59 Borderline >59 Desirable Cholesterol in LDL [Mass/Vol] 130 mg/dL 0 - 130 mg/dL [place] Comment on above: LDL Guidelines: <100 Desirable 100-129 Near to/above Desirable 130-159 Borderline >159 Undesirable Direct (measured) LDL and calculated LDL are not interchangeable tests. Cholesterol in VLDL [Mass/Vol] NOT REPORTED 1 - 30 mg/dL [place] Cholesterol.total/Ch olesterol in HDL [Mass ratio] 3.5 {ratio} <5 [place] Triglyceride [Mass/Vol] 94 mg/dL <150 [place] Comment on above: Triglyceride Guidelines: <150 Desirable 150-199 Borderline 200-499 High >499 Very high Based on AHA Guidelines for fasting triglyceride, March 2012. Magnesiumon 04-16-2019 Magnesium [Mass/Vol] 1.8 mg/dL 1.6 - 2 .6 mg/dL [place] Otheron 04-16-2019 Interpretation and review of laboratory results Abnormal [place] Immature granulocytes (Bld) [#/Vol] NOT REPORTED [place] Patient Fasting?on 9 Patient Fasting? yes [place] TSH with Reflexon 04-16-2019 TSH Qn 2.24 m[IU]/L [place], [place] Vitamin D 25 Hydroxyon 04-16 Vit D, 25-Hydroxy 60.3 ng/mL 30 - 100 ng/mL [place], [place] Comment on above: Reference Range: Vitamin D status Range Deficiency <20 ng/mL Mild Deficiency 20-30 ng/mL Sufficiency 30-100 ng/mL Toxicity >100 ng/mL XR CHEST STANDARD (2 VW)on 06-16-2018 Granulocytes/100 WBC (Bld) Dilated tortuous aorta. Small granuloma left lung of no significance. [place], [place] EXAM: XR CHEST (2 VW ) HISTORY: I10 78-year-old male essential hypertension. COMPARISON: None. TECHNIQUE: 2 views chest. FINDINGS: The aorta is dilated and tortuous including prominent ascending aorta arch and descending aorta. 5 mm calcified granuloma overlying the lateral left anterior 6th rib. Surgical clips in the right upper quadrant abdomen. No failure, pneumonia, or effusion. [place], [place], [facility] Incoming Radiant Results From Binary Thumb/OrSense - 04/16/2019 2:19 PM EST EXAM: XR CHEST (2 VW) HISTORY: I10 78-year-old male essential hypertension. COMPARISON: None. TECHNIQUE: 2 views chest. FINDINGS: The aorta is dilated and tortuous including prominent ascending aorta arch and descending aorta. 5 mm calcified granuloma overlying the lateral left anterior 6th rib. Surgical clips in the right upper quadrant abdomen. No failure, pneumonia, or effusion. IMPRESSION: Dilated tortuous aorta. Small granuloma left lung of no significance. [place], [place] Basic Metabolic Panelon 03-12 Anion gap [Moles/Vol] 18 mmol/L 10 - 20 mmol/L [facility] Calcium [Mass/Vol] 10.2 mg/dL 8.4 - 10. 2 mg/dL [facility] Chloride [Moles/Vol] 101 mmol/L 98 - 10 8 mmol/L [facility] Creatinine [Mass/Vol] 1.15 mg/dL 0.8 - 1.3 mg/dL [facility] GFR/1.73 sq M predicted among non-blacks MDRD (S/P/Bld) [Vol rate/Area] The eGFR should be used for monitoring renal function only and not for medication dosing. [facility] GFR/1.73 sq M.predicted CKD-EPI (S/P/Bld) [Vol rate/Area] 60 >=60 mL/min/1.73 m2 [facility] Glucose [Mass/Vol] 60 mg/dL Low 65 - 99 mg/dL [facility] HCO3 [Moles/Vol] 24 mmol/L 21 - 32 mmol/L [facility] Interpretation and review of laboratory results Abnormal [facility] Potassium [Moles/Vol] 4.1 mmol/L 3.5 - 5.1 mmol/L [facility] Sodium [Moles/Vol] 139 mmol/L 135 - 145 mmol/L [facility] Urea nitrogen [Mass/Vol] 23 mg/dL 8 - 25 mg/dL [facility] Urea nitrogen/Creatinine [Mass ratio] 20.0 mg/mg [facility] CBC WITH AUTO DIFFERENTIALon 03-28-2019 Basophils (Bld) [#/Vol] 0.04 10*3/uL [facility] Basophils/100 WBC (Bld) 0.5 % [facility] Eosinophils (Bld) [#/Vol] 0.06 10*3/uL [facility] Eosinophils/100 WBC (Bld) 0.8 % [facility] Erythrocyte distribution width (RBC) [Entitic vol] 12.9 % 11.6 - 14.8 % [facility] Hematocrit (Bld) [Volume fraction] 39.7 % Low 41 - 53 % [facility] Hemoglobin (Bld) [Mass/Vol] 13.3 g/dL Low 13.5 - 17.5 g/dL [facility] Immature granulocytes (Bld) [#/Vol] 0.03 10*3/uL [facility] Immature granulocytes/100 WBC (Bld) 0.40 % [facility] Comment on above: The IG parameter is the percentage of metamyelocytes, myelocytes, and promyelocytes. Interpretation and review of laboratory results Abnormal [facility] Lymphocytes (Bld) [#/Vol] 2.67 10*3/uL [facility] Lymphocytes/100 WBC (Bld) 35.8 % [facility] MCH (RBC) [Entitic mass] 31.1 pg 26 - 34 pg [facility] MCHC (RBC) [Mass/Vol] 33.5 g/dL 31 - 37 g/dL [facility] MCV (RBC) [Entitic vol] 93.0 fL 80 - 100 fL [facility] Monocytes (Bld) [#/Vol] 0.51 10*3/uL [facility] Monocytes/100 WBC (Bld) 6.8 % [facility] Neutrophils (Bld) [#/Vol] 4.15 10*3/uL [facility] Neutrophils/100 WBC (Bld) 55.7 % [facility] Nucleated RBC (Bld) [#/Vol] 0.00 10*3/uL [facility] Nucleated RBC/100 WBC (Bld) [Ratio] 0.0 % [facility] Platelet mean volume (Bld) [Entitic vol] 9.5 fL 9 - 15.5 fL [facility] Platelets (Bld) [#/Vol] 222 10*3/uL [facility] RBC (Bld) [#/Vol] 4.27 10*6/uL Low [facility] WBC (Bld) [#/Vol] 7.46 10*3/uL [facility] ECHOCARDIOGRAM TRANSESOPHAGE [place] 04-06-2018 Transesophageal Echocardiogram ____ Patient: MANISH Bryan [facility] Rec#: [id number] (Age): 1940(77y) Height: 172.7(cm)/67(in Study Date: 04/06/2018 Weight: 72.6(kg)/160(lb Room#: BSA: 1.86 Type: Outpatient Loc: RAYMOND Procedure Room Sex: M ____ Reading: Joey Fischer MD MSc Referring: ALMITA Performing: Joey Fischer MD MSc Nurse: JAY DU RN Secondary NurseFischLorene marion CCRN History: Atrial fibrillation. Cancer. ProstateCVA, history. Hyperlipidemia Hypertension. Other. CardioversionRenal failure. Diagnosis: ICD-10-PCS Unspecified atrial fibrillation (I48.91) Atrial Fibrillation (427.31) CPT Code(s): DOP ECHO COLOR JEOVANNY MIKA MAPG (53849) DOP ECHO COMPL (38384) RAYMOND R-T IMG 2D W/PRB IMG ACQUISJ IR (63784) Summary: Patient identity verified and ID band on (pause and confirm). Current HP present on patient chart. Procedure explained and patient verified understanding. Consent obtained for RAYMOND. Heart, lungs and airway assessed prior to stress test. Discharge instructions given to patient/family. Sedation Plan: Moderate Pre-sedation ASA Class: II. ASA status unchanged immediately prior to sedation administration. Heart, lungs and airway assessed prior to sedation. Medication Reconciliation completed. 9ml Saline agitated with 1ml air, injected IV push per Lab Protocol. Conclusions: There is normal left ventricular systolic function. S/P Watchman LAAC implantation with appropriate position, no adjacent thrombus or para-device leak noted. There is no pericardial effusion. Compared to prior report from 02/27, similar findings. Findings Reason For Study: Atrial fibrillation. RAYMOND Procedures: The procedure and risk were explained to the patient who consented to the study. Lidocaine Viscous 2% 15 ml by mouth. The patient was administered a total of 3 mg of Midazolam IV push. The patient was administered a total of 50 mcg of Fentanyl IV push. Left Ventricle: The left ventricular chamber size is normal. There is normal left ventricular systolic function. The estimated ejection fraction is 60-65%. Left Atrium: The left atrium is mildly dilated. Spontaneous echo contrast is present in the left atrial appendage. The left atrial appendage velocity is mildly reduced. A patent foramen ovale is not demonstrated by agitated saline contrast. Right Ventricle: The right ventricular chamber size and systolic function are within normal limits. Right Atrium: The right atrial cavity size is normal. Aortic Valve: The aortic valve is trileaflet. Mild aortic leaflet calcification is visualized. Aortic valve appears sclerotic. There is no hemodynamically significant stenosis. Mitral Valve: The mitral valve appears normal in structure and function. There is mild mitral regurgitation. Tricuspid Valve: The tricuspid valve appears normal in structure and function. There is no tricuspid stenosis. There is a trace tricuspid regurgitation. Pericardium: There is no pericardial effusion. Aorta: The aortic root is normal in diameter. There is evidence of mild atheromatous disease in the ascending aorta. There is evidence of grade 2 (extensive intimal thickening) atheromatous disease in the transverse aorta. HR 47 BP 143/85 Electronically Signed at 04/06/2018 12:24:07 by: Joey Fischer MD MSc Invalid Interpretation Code [facility] RAD Interface, Rad In Heartlab Xper Echopacs - 04/06/2018 12:25 PM EDT Transesophageal Echocardiogram ____ Patient: MANISH Bryan [facility] Rec#: [id number] (Age): 1940(77y) Height: 172.7(cm)/67(in Study Date: 04/06/2018 Weight: 72.6(kg)/160(lb Room#: BSA: 1.86 Type: Outpatient Loc: RAYMOND Procedure Room Sex: M ____ Reading: Joey Fischer MD MSc Referring: SEKOUCIELO Performing: Joey Fischer MD MSc Nurse: JAY DU RN Secondary NurseFiLorene islas CCRN History: Atrial fibrillation. Cancer. ProstateCVA, history. Hyperlipidemia Hypertension. Other. CardioversionRenal failure. Diagnosis: ICD-10-PCS Unspecified atrial fibrillation (I48.91) Atrial Fibrillation (427.31) CPT Code(s): DOP ECHO COLOR JEOVANNY MIKA MAPG (58281) DOP ECHO COMPL (07094) RAYMOND R-T IMG 2D W/PRB IMG ACQUISJ IR (14629) Summary: Patient identity verified and ID band on (pause and confirm). Current HP present on patient chart. Procedure explained and patient verified understanding. Consent obtained for RAYMOND. Heart, lungs and airway assessed prior to stress test. Discharge instructions given to patient/family. Sedation Plan: Moderate Pre-sedation ASA Class: II. ASA status unchanged immediately prior to sedation administration. Heart, lungs and airway assessed prior to sedation. Medication Reconciliation completed. 9ml Saline agitated with 1ml air, injected IV push per Lab Protocol. Conclusions: There is normal left ventricular systolic function. S/P Watchman LAAC implantation with appropriate position, no adjacent thrombus or para-device leak noted. There is no pericardial effusion. Compared to prior report from 02/27, similar findings. Findings Reason For Study: Atrial fibrillation. RAYMOND Procedures: The procedure and risk were explained to the patient who consented to the study. Lidocaine Viscous 2% 15 ml by mouth. The patient was administered a total of 3 mg of Midazolam IV push. The patient was administered a total of 50 mcg of Fentanyl IV push. Left Ventricle: The left ventricular chamber size is normal. There is normal left ventricular systolic function. The estimated ejection fraction is 60-65%. Left Atrium: The left atrium is mildly dilated. Spontaneous echo contrast is present in the left atrial appendage. The left atrial appendage velocity is mildly reduced. A patent foramen ovale is not demonstrated by agitated saline contrast. Right Ventricle: The right ventricular chamber size and systolic function are within normal limits. Right Atrium: The right atrial cavity size is normal. Aortic Valve: The aortic valve is trileaflet. Mild aortic leaflet calcification is visualized. Aortic valve appears sclerotic. There is no hemodynamically significant stenosis. Mitral Valve: The mitral valve appears normal in structure and function. There is mild mitral regurgitation. Tricuspid Valve: The tricuspid valve appears normal in structure and function. There is no tricuspid stenosis. There is a trace tricuspid regurgitation. Pericardium: There is no pericardial effusion. Aorta: The aortic root is normal in diameter. There is evidence of mild atheromatous disease in the ascending aorta. There is evidence of grade 2 (extensive intimal thickening) atheromatous disease in the transverse aorta. HR 47 BP 143/85 Electronically Signed at 04/06/2018 12:24:07 by: Joey Fischer MD MSc Invalid Interpretation Code [facility] Basic Metabolic Panelon - Anion gap 3 molar conc 16 mmol/L Invalid Interpretation Code 10 - 20 mmol/L [facility] Calcium mass conc 9.2 mg/dL Invalid Interpretation Code 8.4 - 10.2 mg/dL [facility] Chloride molar conc 104 mmol/L Invalid Interpretation Code 98 - 108 mmol/L [facility] Creatinine mass conc 1.26 mg/dL Invalid Interpretation Code 0.8 - 1.3 mg/dL [facility] GFR/1.73 sq M predicted among non-blacks MDRD vol rate/area (S/P/Bld) The eGFR should be used for monitoring renal function only and not for medication dosing. Invalid Interpretation Code [facility] GFR/1.73 sq M.predicted CKD-EPI vol rate/area (S/P/Bld) 54 Low >=60 mL/min/1.73 m2 [facility] Glucose mass conc 85 mg/dL Invalid Interpretation Code 65 - 99 mg/dL [facility] HCO3 molar conc 24 mmol/L Invalid Interpretation Code 21 - 32 mmol/L [facility] Interpretation and review of laboratory results Abnormal Invalid Interpretation Code [facility] Potassium molar conc 4.1 mmol/L Invalid Interpretation Code 3.5 - 5.1 mmol/L [facility] Sodium molar conc 140 mmol/L Invalid Interpretation Code 135 - 145 mmol/L [facility] Urea nitrogen mass conc 22 mg/dL Invalid Interpretation Code 8 - 25 mg/dL [facility] Urea nitrogen/Creatinine mass ratio 17.5 mg/mg Invalid Interpretation Code [facility] CBCon 02-22-2018 Erythrocyte distribution width Auto Entitic volume (RBC) 12.5 % Invalid Interpretation Code 11.6 - 14.8 % [facility] Hematocrit Auto Volume Fraction (Bld) 40.4 % Low 41 - 53 % [facility] Hemoglobin mass conc (Bld) 13.6 g/dL Invalid Interpretation Code 13.5 - 17.5 g/dL [facility] Interpretation and review of laboratory results Abnormal Invalid Interpretation Code [facility] MCH Auto Entitic mass (RBC) 31.5 pg Invalid Interpretation Code 26 - 34 pg [facility] MCHC Auto mass conc (RBC) 33.7 g/dL Invalid Interpretation Code 31 - 37 g/dL [facility] MCV Auto Entitic volume (RBC) 93.5 fL Invalid Interpretation Code 80 - 100 fL [facility] Nucleated RBC #/vol (Bld) 0.00 10*3/uL Invalid Interpretation Code [facility] Nucleated RBC/100 WBC Ratio (Bld) 0.0 % Invalid Interpretation Code [facility] Platelet mean volume Auto Entitic volume (Bld) 9.5 fL Invalid Interpretation Code 9 - 15.5 fL [facility] Platelets Auto #/vol (Bld) 193 10*3/uL Invalid Interpretation Code [facility] RBC Auto #/vol (Bld) 4.32 10*6/uL Low [facility] WBC Auto #/vol (Bld) 6.59 10*3/uL Invalid Interpretation Code [facility] CBC Auto Differentialon 02-10 Basophils Auto #/vol (Bld) 0.04 10*3/uL Invalid Interpretation Code [facility] Basophils/100 WBC Auto (Bld) 0.5 % Invalid Interpretation Code [facility] Eosinophils Auto #/vol (Bld) 0.13 10*3/uL Invalid Interpretation Code [facility] Eosinophils/100 WBC Auto (Bld) 1.8 % Invalid Interpretation Code [facility] Erythrocyte distribution width Auto Entitic volume (RBC) 12.9 % Invalid Interpretation Code 11.6 - 14.8 % [facility] Hematocrit Auto Volume Fraction (Bld) 41.4 % Invalid Interpretation Code 41 - 53 % [facility] Hemoglobin mass conc (Bld) 14.5 g/dL Invalid Interpretation Code 13.5 - 17.5 g/dL [facility] Immature granulocytes #/vol (Bld) 0.02 10*3/uL Invalid Interpretation Code [facility] Immature granulocytes/100 WBC (Bld) 0.30 % Invalid Interpretation Code [facility] Comment on above: The IG parameter is the percentage of metamyelocytes, myelocytes, and promyelocytes. Interpretation and review of laboratory results Abnormal Invalid Interpretation Code [facility] Lymphocytes Auto #/vol (Bld) 2.56 10*3/uL Invalid Interpretation Code [facility] Lymphocytes/100 WBC Auto (Bld) 35.2 % Invalid Interpretation Code [facility] MCH Auto Entitic mass (RBC) 32.4 pg Invalid Interpretation Code 26 - 34 pg [facility] MCHC Auto mass conc (RBC) 35.0 g/dL Invalid Interpretation Code 31 - 37 g/dL [facility] MCV Auto Entitic volume (RBC) 92.6 fL Invalid Interpretation Code 80 - 100 fL [facility] Monocytes Auto #/vol (Bld) 0.54 10*3/uL Invalid Interpretation Code [facility] Monocytes/100 WBC Auto (Bld) 7.4 % Invalid Interpretation Code [facility] Neutrophils Auto #/vol (Bld) 3.99 10*3/uL Invalid Interpretation Code [facility] Neutrophils/100 WBC Auto (Bld) 54.8 % Invalid Interpretation Code [facility] Nucleated RBC #/vol (Bld) 0.00 10*3/uL Invalid Interpretation Code [facility] Nucleated RBC/100 WBC Ratio (Bld) 0.0 % Invalid Interpretation Code [facility] Platelet mean volume Auto Entitic volume (Bld) 9.4 fL Invalid Interpretation Code 9 - 15.5 fL [facility] Platelets Auto #/vol (Bld) 218 10*3/uL Invalid Interpretation Code [facility] RBC Auto #/vol (Bld) 4.47 10*6/uL Low [facility] WBC Auto #/vol (Bld) 7.28 10*3/uL Invalid Interpretation Code [facility] If not done in the last 30 days Invalid Interpretation Code [facility] Echocardiogram intraop RAYMOND heriberto lima 02-22-2018 Transesophageal Echocardiogram ____ Patient: MANISH Bryan [facility] Rec#: [id number] (Age): 1940(77y) Height: 172.7(cm)/67(in Study Date: 02/22/2018 Weight: 71.2(kg)/157(lb Room#: hybrid BSA: 1.84 Type: Loc: Operating Room Sex: M ____ Reading: Ty Mcarthur DO, FAC Referring: Boy Austin MD Referring: CASPER BUSTOS MD Performing: Ty Mcarthur DO, FAC History: Atrial fibrillation. Diagnosis: ICD-10-PCS Unspecified atrial fibrillation (I48.91) Atrial Fibrillation (427.31) CPT Code(s): DOP ECHO COLOR JEOVANNY MIKA MAPG (15936) DOP ECHO COMPL (42915) RAYMOND R-T IMG 2D W/PRB IMG ACQUISJ IR (52659) Conclusions: 1. A RAYMOND was performed to guide a Watchman device implant. 2. The maximum SANDY orifice diameter was 14 mm. Maximum depth was 24 mm. 3. The Watchman device was successfully deployed. No leak evident around the device. No clot. 4. There is no pericardial effusion. 5. There was a small iatrogenic ASD at the end of the case with left to right flow.. Findings Reason For Study: Atrial fibrillation. RAYMOND Procedures: The RAYMOND probe was passed in the operating room after the patient was sedated with general anesthesia. Left Ventricle: The left ventricular chamber size is normal. There is normal left ventricular systolic function. The estimated ejection fraction is 60-65%. Left Atrium: There is severe spontaneous echo contrast visualized in the left atrium appendage. The left atrial appendage velocity is severely reduced. Left atrial appendage peak emptying velocity 19 cm/sec. Right Ventricle: The right ventricular chamber size and systolic function are within normal limits. Right Atrium: The right atrial cavity size is normal. Aortic Valve: The aortic valve is trileaflet. Aortic valve appears sclerotic. There is no hemodynamically significant stenosis. Mitral Valve: The mitral valve appears normal in structure and function. There is a trace of mitral regurgitation. Tricuspid Valve: The tricuspid valve appears normal in structure and function. There is no tricuspid stenosis. There is a trace tricuspid regurgitation. Pericardium: There is no pericardial effusion. Aorta: The aortic root is normal in diameter. Electronically Signed at 02/22/2018 13:11:43 by: Ty Mcarthur DO, ASAFC, ALBERTINAE, FSCCT Invalid Interpretation Code [facility] RAD Interface, Rad In Heartlab Xper Echoohcs - 02/22/2018 1:14 PM EDT Transesophageal Echocardiogram ____ Patient: MANISH Bryan [facility] Rec#: [id number] (Age): 1940(77y) Height: 172.7(cm)/67(in Study Date: 02/22/2018 Weight: 71.2(kg)/157(lb Room#: [facility] BSA: 1.84 Type: Loc: Operating Room Sex: M ____ Reading: Ty Mcarthur DO, FAC Referring: Boy Austin MD Referring: CASPER BUSTOS MD Performing: Ty Mcarthur DO, FAC History: Atrial fibrillation. Diagnosis: ICD-10-PCS Unspecified atrial fibrillation (I48.91) Atrial Fibrillation (427.31) CPT Code(s): DOP ECHO COLOR JEOVANNY MIKA MAPG (41836) DOP ECHO COMPL (04471) RAYMOND R-T IMG 2D W/PRB IMG ACQUISJ IR (16280) Conclusions: 1. A RAYMOND was performed to guide a Watchman device implant. 2. The maximum SANDY orifice diameter was 14 mm. Maximum depth was 24 mm. 3. The Watchman device was successfully deployed. No leak evident around the device. No clot. 4. There is no pericardial effusion. 5. There was a small iatrogenic ASD at the end of the case with left to right flow.. Findings Reason For Study: Atrial fibrillation. RAYMOND Procedures: The RAYMOND probe was passed in the operating room after the patient was sedated with general anesthesia. Left Ventricle: The left ventricular chamber size is normal. There is normal left ventricular systolic function. The estimated ejection fraction is 60-65%. Left Atrium: There is severe spontaneous echo contrast visualized in the left atrium appendage. The left atrial appendage velocity is severely reduced. Left atrial appendage peak emptying velocity 19 cm/sec. Right Ventricle: The right ventricular chamber size and systolic function are within normal limits. Right Atrium: The right atrial cavity size is normal. Aortic Valve: The aortic valve is trileaflet. Aortic valve appears sclerotic. There is no hemodynamically significant stenosis. Mitral Valve: The mitral valve appears normal in structure and function. There is a trace of mitral regurgitation. Tricuspid Valve: The tricuspid valve appears normal in structure and function. There is no tricuspid stenosis. There is a trace tricuspid regurgitation. Pericardium: There is no pericardial effusion. Aorta: The aortic root is normal in diameter. Electronically Signed at 02/22/2018 13:11:43 by: Ty Mcarthur, , FACC, [place]KHAIL, [facility] Invalid Interpretation Code [facility] Echocardiogram limitedon Interface, Rad In Heartlab Xper Echopacs - 02/22/2018 4:19 PM EDT Transthoracic Echocardiogram ____ Patient: MANISH Bryan [facility] Rec#: [id number] (Age): 1940(77y) Height: 172.72(cm)/67(i Study Date: 02/22/2018 Weight: 72.58(kg)/160(l Room#: 3355 BSA: [id number] Type: Inpatient Loc: CIL Sex: M ____ Reading: Delicia Agudelo MD, PhD, Referring: ALMITA Senior Sharepoint Architect: Kelvin Putnam RDCS, RV History: Arrhythmia. Atrial fibrillation. Cancer. CVA, history. Hyperlipidemia Hypertension. S/P closure device. 21mm WatchmanTobacco abuse. Diagnosis: ICD-10-PCS Pericardial effusion (noninflammatory) (I31.3) Pericardial effusion (423.9) CPT Code(s): DOP ECHO COLOR JEOVANNY MIKA MAPG (75989) TTE R-T IMG 2D +-M-MODE REC F-UP/LMTD (37605) Study Quality The study quality is fair. Summary: Patient identity verified and ID band on (pause and confirm). Current HP present on patient chart. Procedure explained and patient verified understanding. Consent obtained for procedure. Limited views were obtained. Conclusions: Limited study to evaluate for pericardial effusion. Normal biventricular systolic function. No pericardial effusion. Findings Reason For Study: Pericardial effusion. Left Ventricle: There is normal left ventricular systolic function. The estimated ejection fraction is 60-65%. Left Atrium: The left atrium is dilated. Aortic Valve: Aortic valve appears sclerotic. Pericardium: There is no pericardial effusion. HR 55 BP 126/82 Measurements Chambers 2D Name Value Normal Range IVSd (2D) 0.88 cm none LVPWd (2D) 1.14 cm none IVS:LVPW ratio (2D) 0.78 ratio none LVIDd (2D) 4.87 cm none LVIDs (2D) 2.69 cm none LVIDd (2D) index 2.62 cm/m2 none LVIDs (2D) index 1.45 cm/m2 none LA dimension (AP) 2D 4.5 cm none LA dimension (2D) index 2.42 cm/m2 none Volumes/Mass Name Value Normal Range LV EDV SP 4CH (MOD) 111 ml none LV ESV SP 4CH (MOD) 38 ml none LV EDV SP 2CH (MOD) 92.6 ml none LV ESV SP 2CH (MOD) 30.8 ml none LV EDV BP 101 ml none LV ESV BP 34.6 ml none LV EDV BP index 54.33 ml/m2 none LV ESV BP index 18.61 ml/m2 none LV mass (2D) 177.23 g none LV mass (2D) index 95.33 g/m2 none Electronically Signed at 02/22/2018 16:16:56 by: Delicia Agudelo MD, PhD, RVT Invalid Interpretation Code [facility] Transthoracic Echocardiogram ____ Patient: MANISH Bryan [facility] Rec#: [id number] (Age): 1940(77y) Height: 172.72(cm)/67(i Study Date: 02/22/2018 Weight: 72.58(kg)/160(l Room#: 3355 BSA: [id number] Type: Inpatient Loc: [facility] Sex: M ____ Reading: Delicia Agudelo MD, PhD, Referring: ALMITA Senior Sharepoint Architect: Kelvin Putnam RUST, History: Arrhythmia. Atrial fibrillation. Cancer. CVA, history. Hyperlipidemia Hypertension. S/P closure device. 21mm WatchmanTobacco abuse. Diagnosis: ICD-10-PCS Pericardial effusion (noninflammatory) (I31.3) Pericardial effusion (423.9) CPT Code(s): DOP ECHO COLOR JEOVANNY MIKA MAPG (24021) TTE R-T IMG 2D +-M-MODE REC F-UP/LMTD (07167) Study Quality The study quality is fair. Summary: Patient identity verified and ID band on (pause and confirm). Current HP present on patient chart. Procedure explained and patient verified understanding. Consent obtained for procedure. Limited views were obtained. Conclusions: Limited study to evaluate for pericardial effusion. Normal biventricular systolic function. No pericardial effusion. Findings Reason For Study: Pericardial effusion. Left Ventricle: There is normal left ventricular systolic function. The estimated ejection fraction is 60-65%. Left Atrium: The left atrium is dilated. Aortic Valve: Aortic valve appears sclerotic. Pericardium: There is no pericardial effusion. HR 55 BP 126/82 Measurements Chambers 2D Name Value Normal Range IVSd (2D) 0.88 cm none LVPWd (2D) 1.14 cm none IVS:LVPW ratio (2D) 0.78 ratio none LVIDd (2D) 4.87 cm none LVIDs (2D) 2.69 cm none LVIDd (2D) index 2.62 cm/m2 none LVIDs (2D) index 1.45 cm/m2 none LA dimension (AP) 2D 4.5 cm none LA dimension (2D) index 2.42 cm/m2 none Volumes/Mass Name Value Normal Range LV EDV SP 4CH (MOD) 111 ml none LV ESV SP 4CH (MOD) 38 ml none LV EDV SP 2CH (MOD) 92.6 ml none LV ESV SP 2CH (MOD) 30.8 ml none LV EDV BP 101 ml none LV ESV BP 34.6 ml none LV EDV BP index 54.33 ml/m2 none LV ESV BP index 18.61 ml/m2 none LV mass (2D) 177.23 g none LV mass (2D) index 95.33 g/m2 none Electronically Signed at 02/22/2018 16:16:56 by: Delicia Agudelo MD, PhD, RVT Invalid Interpretation Code [facility] Metabolic Panelon 02-22-2018 Protein mass conc Red Blood Cells Invalid Interpretation Code [facility] Protein mass conc [id number] Invalid Interpretation Code [facility] Otheron 02-22-2018 Blood Type Positive Invalid Interpretation Code [facility] Blood Type Code 6200 Invalid Interpretation Code [facility] Cross Match Compatible Invalid Interpretation Code [facility] Status Info Ready Invalid Interpretation Code [facility] POC INRon 02-22-2018 INR Coag RelTime (Bld) 1.0 {INR} Invalid Interpretation Code [facility] Interpretation and review of laboratory results Normal Invalid Interpretation Code [facility] Prepare RBC: 2 Unitson 02-22 Unit Number [id number] Invalid Interpretation Code [facility] Unit Number [id number] Invalid Interpretation Code [facility] Progress Noteon 02-02-2018 HIM IP Note OR Retail Planner Normal [facility] Progress Noteon 01-26-2018 HIM IP Note OR Retail Planner Normal [facility] HIM IP Note OR Retail Planner Normal [facility] CT HEAD WO CONTRASTon 2017 CT HEAD WO CONTRAST EXAMINATION:CT OF TH E HEAD WITHOUT CONTRAST 01/25/2018 11:03 amTECHNIQUE:CT of the head was performed without the administration of intravenouscontrast. Dose modulation, iterative reconstruction, and/or weight basedadjustment of the mA/kV was utilized to reduce the radiation dose to as lowas reasonably achievable.COMPARISON: Brain CT dated 07/28/2016.HISTORY:ORD ERING SYSTEM PROVIDED HISTORY: Subdural hematoma (HCC)TECHNOLOGIST PROVIDED HISTORY:Reason for exam:->sd hematomaOrdering Physician Provided Reason for Exam: pre op evalAcuity: UnknownType of Exam: UnknownFINDINGS:BRAIN/ VENTRICLES: No subdural hemorrhage on current exam. There is no acuteintracranial hemorrhage, mass effect or midline shift. No abnormalextra-axial fluid collection. The giraldo-white differentiation is maintainedwithout evidence of an acute infarct. There is no evidence of hydrocephalus.ORBITS: The visualized portion of the orbits demonstrate no acute abnormality.SINUSES: The visualized paranasal sinuses and mastoid air cells demonstrateno acute abnormality.SOFT TISSUES/SKULL: No acute abnormality of the visualized skull or softtissues. Multiple bilateral ryder holes.IMPRESSION: No acute intracranial abnormality. No subdural hematoma.Interpreted by:VIV Mackayigned by:Kailee Cano MD01/25/18inal result Normal [facility] Progress Noteon 01-25-2018 HIM IP Note OR Retail Planner Normal [facility] Progress Noteon 11-14-2017 HIM IP Note OR Retail Planner Normal [facility] HIM IP Note OR Retail Planner Normal [facility] Vital Signs Date Time Vital Sign Value Performing Clinician Faci lity 07-24-2023 11:54-0500 Body mass index (BMI) [Ratio] 22.96 kg/m2 Cedric Carr MD Work Phone: [facility] 07-24-2023 11:54-0500 Body weight 68.49 kg Cedric Carr MD Work Phone: [facility] 07-24-2023 11:54-0500 Diastolic blood pressure 78 mm[Hg] Cedric Carr MD Work Phone: [facility] 07-24-2023 11:54-0500 Systolic blood pressure 118 mm[Hg] Cedric Carr MD Work Phone: [facility] 03-28-2019 14:02-0400 BP Diastolic 80 mm[Hg] [facility] 03-28-2019 14:02-0400 BP Systolic 170 mm[Hg] [facility] 03-28-2019 13:38-0400 BMI (Body Mass Index) 24.02 kg/m2 [facility] 03-28-2019 13:38-0400 Body Temperature 97.7 [degF] [facility] 03-28-2019 13:38-0400 Body weight 71.67 kg [facility] 03-28-2019 13:38-0400 Pulse (Heart Rate) 53 /min [facility] 03-28-2019 13:38-0400 Pulse Oximetry 100 % [facility] 03-28-2019 13:38-0400 Respiratory Rate 16 /min [facility] 04-06-2018 12:10-0400 BP Diastolic 77 mm[Hg] [facility] 04-06-2018 12:10-0400 BP Systolic 135 mm[Hg] [facility] 04-06-2018 12:10-0400 Pulse (Heart Rate) 44 /min [facility] 04-06-2018 12:10-0400 Pulse Oximetry 96 % [facility] 04-06-2018 12:10-0400 Respiratory Rate 13 /min [facility] 04-06-2018 09:40-0400 BMI (Body Mass Index) 24.33 kg/m2 Talisha [facility] 04-06-2018 09:40-0400 Body Temperature 97.59 [degF] Talisha [facility] 04-06-2018 09:40-0400 BP Diastolic 86 mm[Hg] [facility] 04-06-2018 09:40-0400 BP Systolic 158 mm[Hg] [facility] 04-06-2018 09:40-0400 Pulse (Heart Rate) 48 /min [facility] 04-06-2018 09:40-0400 Pulse Oximetry 95 % [facility] 04-06-2018 09:40-0400 Respiratory Rate 16 /min [facility] 04-06-2018 09:40-0400 Weight 72.58 kg [facility] 02-22-2018 16:23-0400 BP Diastolic 80 mm[Hg] [facility] 02-22-2018 16:23-0400 BP Systolic 144 mm[Hg] [facility] 02-22-2018 16:23-0400 Pulse (Heart Rate) 54 /min [facility] 02-22-2018 16:23-0400 Respiratory Rate 19 /min [facility] 02-22-2018 15:00-0400 Pulse Oximetry 98 % [facility] 02-22-2018 10:55-0400 Body Temperature 97.2 [degF] [facility] 02-22-2018 08:46-0400 BMI (Body Mass Index) 24.33 kg/m2 [facility] 02-22-2018 08:46-[address] [facility] 02-22-2018 08:46-[address] [facility] 12-26-2017 13:40-0400 BMI (Body Mass Index) 24.33 kg/m2 Boy Austin [facility] 12-26-2017 13:40-0400 Body Temperature 97.59 [degF] Boy Geovanna [facility] 12-26-2017 13:40-0400 BP Diastolic 83 mm[Hg] Boy Austin [facility] 12-26-2017 13:40-0400 BP Systolic 166 mm[Hg] Boy Austin [facility] 12-26-2017 13:40-0400 Height 172.7 cm Boy Carrerakubov [facility] 12-26-2017 13:40-0400 Pulse (Heart Rate) 54 /min Boy Austin [facility] 12-26-2017 13:40-0400 Pulse Oximetry 98 % Boy Austin [facility] 12-26-2017 13:40-0400 Respiratory Rate 16 /min Boy Austin [facility] 12-26-2017 13:40-0400 Weight 72.58 kg Boy Austin [facility] Encounters Encounter Date Encounter Type Care Provider Facility Start: 08-22-2023 End: 08-22-2023 ambulatory CEDRIC CARR Not Available Start: 08-11-2023 End: 08-11-2023 ambulatory TISHMARICEL YAÑEZ Not Available Start: 08-07-2023 End: 08-07-2023 ambulatory GERMAINE CONCEPCION Not Available Start: 08-02-2023 End: 08-02-2023 ambulatory TISH FRANCINE Not Available Start: 07-24-2023 Bamboo flowsheet Cedric belcher MD Work Phone: [facility] Start: 07-24-2023 Bamboo flowsheet Cedric belcher MD Work Phone: [facility] Start: 07-24-2023 End: 07-24-2023 ambulatory CEDRIC CARR Not Available Start: 07-24-2023 End: 07-24-2023 Office outpatient visit 25 minutes Cedric Carr MD Work Phone: [facility] Comment on above: Vascular dementia wi thout behavioral disturbance (CMS/HCC); White matter disease; Chronic fatigue; Polypharmacy; Generalized weakness; At risk for falling; Moderate major depression (CMS/HCC) Start: 03-24-2023 End: 03-24-2023 ambulatory [facility] Start: 08-24-2022 End: 08-24-2022 ambulatory UDAY BROWNLEE [facility] Start: 02-03-2022 End: 02-04-2022 ambulatory UDAY BROWNLEE Facility:[facility]1 Start: 11-10-[address] CEDRIC CARR [facility] ity:[facility] Start: 07-22-2021 End: 07-23-[address] CEDRIC CARR Facility:[facility]1 Start: 07-21-2021 End: 07-22-2021 ambulatory UDAY BROWNLEE Facility: Start: 10-31-2020 End: 11-03-2020 Evaluation and management of inpatient ENOCH BRIAN Facility:[facility] Start: 06-26-2020 End: 06-26-2020 Orders Only Leana Mcgrath Work Phone: [facility] Start: 04-30-2020 End: 05-03-2020 Patient encounter procedure KLYE RUTH [facility] Start: 04-30-2020 End: 05-02-2020 Subsequent hospital visit by physician [facility] Additional Xray At [facility] Comment on above: Essential hypertensi on; Other hyperlipidemia; Vitamin D deficiency disease; Chronic atrial fibrillation currently in NSR for 3 years on flecainaide Vitamin D deficiency disease; Essential hypertension; Other hyperlipidemia Start: 03-23-2020 End: 03-23-2020 Documentation procedure Jennifer Foster [facility] Start: 03-23-2020 Patient encounter procedure ANGELA PATEL [facility] Start: 03-13-2020 [facility] Start: 04-16-2019 End: 04-18-2019 Subsequent hospital visit by physician Elda Additional Xray At [facility] Comment on above: Essential hypertensi on Essential hypertensi on; Chronic atrial fibrillation currently in NSR for 3 years on flecainaide; Vitamin D deficiency disease; Other hyperlipidemia Essential hypertensi on; Chronic atrial fibrillation currently in NSR for 3 years on flecainaide Start: 03-28-2019 End: 03-28-2019 Patient encounter procedure AUSTEN JEFF [facility] Start: 03-28-2019 End: 03-28-2019 Office outpatient visit 15 minutes Austen Jeff Work Phone: [facility] Comment on above: PAF (paroxysmal atri al fibrillation) (HCC) Start: 09-12-2018 End: 09-12-2018 Documentation procedure Jennifer Whiteasher [facility] Start: 04-06-2018 End: 04-06-2018 Patient encounter Austen Jeff Work Phone: [facility] Comment on above: PAF (paroxysmal atri al fibrillation) ([facility]) Start: 04-06-2018 End: 04-06-2018 Office outpatient visit 15 minutes Cedric Carr Work Phone: [facility] Comment on above: PAF (paroxysmal atri al fibrillation) ([facility]); MENDEZ (acute kidney injury) ([facility]) Start: 02-22-2018 End: 02-22-2018 Evaluation and management of inpatient [facility] Comment on above: PAF (paroxysmal atri al fibrillation) ([facility]); PAF (paroxysmal atrial fibrillation) ([facility]) Start: 01-31-2018 Patient encounter Yelena Vasquez [facility] Start: 01-25-2018 End: 01-28-2018 [facility] Start: 01-03-2018 Patient encounter Alexageo Purdy [facility] Start: 12-26-2017 End: 12-26-2017 Office outpatient new 60 minutes Angela Smith Work Phone: [facility] Procedures Date Procedure Procedure Detail Performing Clinician Start: 08-24-2022 Follow-up visit Follow-up UDAY BROWNLEE Start: 11-02-2020 DILATION OF 1 COR ART WITH DRUG-ELUT INTRA, PERC APPROACH EVELYN PARTIDA Start: 11-02-2020 PLAIN RADIOGRAPHY OF MULT COR ART USING OTH CONTRAST EVELYN PARTIDA Start: 04-30-2020 Ecg routine ecg w/least 12 lds w/i&r KYLE RUTH Start: 04-30-2020 Radiologic exam chest 2 views KYLE RUTH Start: 04-30-2020 25 hydroxy includes fractions if performed KYLE RUTH Start: 04-30-2020 Assay of magnesium KYLE RUTH Start: 04-30-2020 Assay of thyroid stimulating hormone tsh KYLE RUTH Start: 04-30-2020 Blood count complete auto&auto difrntl wbc KYLE RUTH Start: 04-30-2020 Blood typing serologic abo KYLE RUTH Start: 04-30-2020 Comprehensive metabolic panel KYLE RUTH Start: 04-30-2020 Lipid panel KYLE RUTH Start: 04-30-2020 Radiologic exam chest 2 views Kyle Ruth Work Phone: Start: 04-30-2020 25 hydroxy includes fractions if performed Kyle Ruth Work Phone: Start: 04-30-2020 Assay of magnesium Kyle Ruth Work Phone: Start: 04-30-2020 Assay of thyroid stimulating hormone tsh Kyle Ruth Work Phone: Start: 04-30-2020 Blood count complete auto&auto difrntl wbc Kyle Ruth Work Phone: Start: 04-30-2020 Comprehensive metabolic panel Kyle Ruth Work Phone: Start: 04-30-2020 Lipid panel Kyle Ruth Work Phone: Start: 04-30-2020 PATIENT FASTING? Kyle Ruht Work Phone: Start: 04-16-2019 Radiologic exam chest 2 views Kyle Ruth Work Phone: Start: 04-16-2019 25 hydroxy includes fractions if performed Kyle Ruth Work Phone: Start: 04-16-2019 Assay of magnesium Kyle Ruth Work Phone: Start: 04-16-2019 Assay of thyroid stimulating hormone tsh Kyle Ruth Work Phone: Start: 04-16-2019 Blood count complete auto&auto difrntl wbc Kyle Ruth Work Phone: Start: 04-16-2019 Comprehensive metabolic panel Kyle Ruth Work Phone: Start: 04-16-2019 Lipid panel Kyle Ruth Work Phone: Start: 04-16-2019 PATIENT FASTING? Kyle Ruth Work Phone: Start: 03-28-2019 Basic metabolic 2000 panel - Serum or Plasma Austen Jeff Work Phone: Start: 03-28-2019 Complete blood count with white cell differential, automated Austen Jeff Work Phone: Start: 03-28-2019 Complete blood count with white cell differential, manual Austen Jeff Work Phone: Start: 04-06-2018 End: 04-06-2018 Transesophageal echocardiography Austen Jeff Work Phone: Start: 02-22-2018 End: 02-22-2018 Dop echocard color flow velocity mapping Austen Jeff Work Phone: Start: 02-22-2018 End: 02-22-2018 Basic metabolic 2000 panel - Serum or Plasma Austen Jeff Work Phone: Start: 02-22-2018 End: 02-22-2018 Complete blood count (hemogram) panel - Blood by Automated count Casper Bustos Work Phone: Start: 02-22-2018 End: 02-22-2018 LEFT ATRIAL APPENDAGE LIGATION Angela Smith Work Phone: Start: 02-22-2018 End: 02-22-2018 Echo arymond guid tcat icar/vessel structural intvn Boy Jace Austin Work Phone: Start: 02-22-2018 End: 02-22-2018 Blood count complete auto&auto difrntl wbc Austen Jeff Work Phone: Start: 02-22-2018 End: 02-22-2018 POC INR - RALS [facility] Start: 02-22-2018 End: 02-22-2018 PREPARE RBC Austen vargas Work Phone: Start: 01-25-2018 Ct head/brain w/o contrast material MAEVE DESOUZA Plan of Treatment Date Care Activity Detail Author Start: 12-23-2025 Tetanus vaccination [facility] Start: 08-02-2023 End: 08-02-2023 ambulatory 08/02/2023 10:00 AM EST Evaluation [facility] [address] [address] [place] [id number] Tish Yañez, PT [facility] Start: 07-24-2023 End: 07-24-2023 Patient encounter procedure 07/24/2023 11:30 AM EST Office Visit [facility] [address] [place] [address] Cedric Carr MD [address] [place] [address] (Fax) Vascular dementia without behavioral disturbance (CMS/HCC); White matter disease; Adult situational stress disorder (CMS/HCC); Moderate major depression (CMS/HCC); Chronic fatigue; Polypharmacy [facility] Comment on above: Vascular dementia wi thout behavioral disturbance (CMS/HCC); White matter disease; Adult situational stress disorder (CMS/HCC); Moderate major depression (CMS/HCC); Chronic fatigue; Polypharmacy Start: 02-10-2023 Influenza vaccination Influenza Vacc ine (#1) [facility] Start: 02-02-2023 Medicare Annual Well ness (AWV) Medicare Annual Wellness (AWV) [facility] Start: 04-30-2021 Creatinine measurement Creatinine mo [place], [place] Start: 04-30-2021 Lipid panel Lipid screen [place], [place] Start: 04-30-2021 Potassium monitoring Potassium monit oring [place], [place] Start: 10-29-2020 End: 10-29-2020 Office Visit 10/29/2020 Office Visit Cardiology Kyle Ruth MD [address] [place] [address] [address] [facility] Customer Success Manager Start: 04-16-2020 Creatinine measurement Creatinine mo [place], [place] Start: 04-16-2020 Creatinine monitoring Creatinine mon itoring [place], [place] Start: 04-16-2020 Lipid panel Lipid screen [place], [place] Start: 04-16-2020 Lipid screen Lipid screen [place] Start: 04-16-2020 Potassium monitoring Potassium monit [place]ing [place], [place] Start: 02-11-2020 Influenza vaccination Flu vaccine (# 1) [place], [place] Start: 02-11-2020 Influenza vaccinatio n given Sequential Influenza Vaccine (#1) [facility] Start: 11-07-2019 End: 11-07-2019 Office Visit 11/07/2019 Office Visit Cardiology Kyle Ruth MD [address] [place] [address] [address] [facility] Customer Success Manager Start: 07-09-2019 History and physical examination, annual for health maintenance Wellness Visit [facility] Start: 02-10-2019 Influenza vaccination Flu vaccine (# 1) [place], [place] Start: 02-10-2019 Influenza vaccinatio n given SEQUENTIAL INFLUENZA VACCINE (#1) [facility] Start: 12-02-2018 Annual Wellness Visi t (AWV) Annual Wellness Visit (AWV) [place], [place] Start: 04-06-2018 End: 04-06-2018 Ambulatory 04/06/2018 Office Visit Cardiology Austen Jeff, FACT CHECKER [address] [place], [place] [id number] [facility] Start: 02-22-2018 Ambulatory [facility] [employer] Changeover Operator Start: 02-10-2018 Influenza vaccination SEQUENTI AL INFLUENZA VACCINE (#1) [facility] Start: 02-10-2018 Influenza vaccinatio n given SEQUENTIAL INFLUENZA VACCINE (#1) [facility] Start: 2004 Fall risk assessment Steadi Julian ll [facility] Start: 2004 Pneumococcal 65+ yea rs Vaccine (1 of 1 - PPSV23) Pneumococcal 65+ years Vaccine (1 of 1 - PPSV23) [place], [place] Start: 2004 Pneumococcal vaccination PNEUM OCOCCAL VACCINE AGE 65+ (1 of 2 - PCV13) [facility] Start: 1999 Zoster vaccine hzv l riccardo for subcutaneous use ZOSTER VACCINE [facility] Start: 1989 Administration of he rpes zoster vaccine ZOSTER VACCINES (1 of 2) [facility] Start: 1989 Shingles Vaccine (1 of 2) Darling gles Vaccine (1 of 2) [place] Start: 1989 ZOSTER VACCINES (1 of 2) ZOSTER VACC ANTON (1 of 2) [facility] Start: 1958 DTaP/Tdap/Td vaccine (1 - Tdap) DTaP/Tdap/Td vaccine (1 - Tdap) [place], [place] Start: 1951 Adolescent depressio n screening assessment Depression Screening (PHQ9) [facility] Start: 1949 Albumin DL <= 20 mg/ L mass conc (U) URINE MICROALBUMIN [facility] Start: 1942 History and physical examination, annual for health maintenance Wellness Visit [facility] Start: 1939 Fall risk assessment Falls Risk Asse ssment [facility] End: 04-06-2019 Basic metabolic 2000 panel Basic Metabolic Panel Routine PAF (paroxysmal atrial fibrillation) ([facility]) 1 Occurrences starting 04/06/2018 until 04/06/2019 [facility] Comment on above: 1 Occurrences starti ng 04/06/2018 until 04/06/2019 Basic metabolic 2000 panel Basic Metabolic Panel Routine PAF (paroxysmal atrial fibrillation) ([facility]) 04/06/2018 10:12 AM EDT [facility] Cardiac catheterization Cardiac Catheterization Routine PAF (paroxysmal atrial fibrillation) ([facility]) 02/22/2018 10:49 AM EDT [facility] EKG [address] [place], [place] Immunizations Immunization Date Immunization Notes Care Provider Fa [facility] 07-31-2019 influenza, injectabl e, quadrivalent, preservative free Cedric Carr MD Work Phone: [facility] 07-31-2019 influenza virus vacc ine, unspecified formulation Cedric Carr MD Work Phone: [facility] 03-12-2019 influenza, injectabl e, quadrivalent, preservative free Cedric Carr MD Work Phone: [facility] 08-08-2018 influenza, injectabl e, quadrivalent, preservative free Cedric Carr MD Work Phone: [facility] 03-24-2017 influenza, high dose seasonal, preservative-free Cedric Carr MD Work Phone: [facility] 03-20-2017 influenza, injectabl e, quadrivalent, preservative free Cedric Carr MD Work Phone: [facility] 06-29-2016 influenza, injectabl e, quadrivalent, preservative free Cedric Carr MD Work Phone: [facility] 06-29-2016 influenza, seasonal, injectable, preservative free Cerdic Carr MD Work Phone: [facility] 04-25-2016 influenza, injectabl e, quadrivalent, preservative free Cedric Carr MD Work Phone: [facility] 04-25-2016 pneumococcal conjuga te vaccine, 7 valent Cedric Carr MD Work Phone: [facility] 04-25-2016 pneumococcal Conjuga te, unspecified formulation Cedric Carr MD Work Phone: [facility] 12-24-2015 tetanus and diphther ia toxoids, adsorbed, preservative free, for adult use (5 Lf of tetanus toxoid and 2 Lf of diphtheria toxoid) Cedric Carr MD Work Phone: [facility] 05-14-2015 influenza virus vacc ine, unspecified formulation Cedric Carr MD Work Phone: [facility] 04-27-2015 influenza, injectabl e, quadrivalent, preservative free Cedric Carr MD Work Phone: [facility] 02-11-2015 pneumococcal conjuga te vaccine, 13 valent Cedric Carr MD Work Phone: [facility] 05-30-2014 influenza, seasonal, injectable, preservative free Cedric Carr MD Work Phone: [facility] 2013 diphtheria, tetanus toxoids and acellular pertussis vaccine Cedric Carr MD Work Phone: [facility] 2013 influenza virus vacc ine, unspecified formulation Cedric Carr MD Work Phone: [facility] 2013 influenza, injectabl e, quadrivalent, preservative free Cedric Carr MD Work Phone: [facility] 03-24-2010 influenza virus vacc ine, unspecified formulation Cedric Carr MD Work Phone: [facility] 03-24-2010 influenza, injectabl e, quadrivalent, preservative free Cedric Carr MD Work Phone: [facility] 03-24-2009 influenza virus vacc ine, unspecified formulation Cedric Carr MD Work Phone: [facility] 03-24-2009 influenza, injectabl e, quadrivalent, preservative free Cedric Carr MD Work Phone: [facility] 06-24-2008 influenza virus vacc ine, unspecified formulation Cedric Carr MD Work Phone: [facility] 05-20-2005 pneumococcal polysaccharide vaccine, 23 valent Cedric Carr MD Work Phone: [facility] 05-20-2005 pneumococcal vaccine , unspecified formulation Cedric Carr MD Work Phone: [facility] Payers Date Payer Category Payer Unknown [facility] [employer] [facility] [id number] 2022-Present [address] [place] [address] [id number] 2019 Unknown [facility] xxxxx xxxx 2019-Present xxxxxxxxx [id number] 2019 Unknown [id number] 2019 Unknown [facility] xxxxx [id number] 2019-Present [id number] .[id number] 2015 Medicare [id number] 2009 Unknown xxxxxxxxxx [id number] [id number] 2009 Unknown [employer] [id number] 2009-Present [id number] .[id number] 2004 Medicare xxxxxxxxxxx [id number] .[id number] 2004 Medicare MEDICARE MEDICAR E PART A & B [id number] 2004-Present [place] [id number] .[id number] 2004 Medicare MEDICARE MEDICAR E PART B [id number] 2004-[place] [address] Medicare [id number] 2004 Medicare [id number] 1959 Medicare [id number] 1959 Self-pay 1959 Unknown [id number] 1939 Unknown [id number].900 1939 Unknown [id number] 2.16.840.1.273826.3.579.2.900 1939 Unknown [id number] 2.16.840.1.238862.3.579.2.900 1939 Unknown [id number] 2.16.840.1.662838.3.579.2.174 1939 Unknown [id number] 2.16.840.1.608103.3.579.2.174 1939 Unknown [id number] 2.16.840.1.002375.3.579.2.174 1939 Unknown [id number] 2.16.840.1.982275.3.579.2.174 1939 Unknown [id number] 2.16.840.1.011661.3.579.2.647 1939 Unknown [id number] 2.16.840.1.949532.3.579.2.593 1939 Unknown [id number] 2.16.840.1.911064.3.579.2.593 1939 Unknown [id number] 2.16.840.1.290420.3.579.2.593 1939 Unknown [id number] 2.16.840.1.793481.3.579.2.593 1939 Unknown [id number] 2.16.840.1.430926.3.579.2.125 9 1939 Unknown [id number] 2.16.840.1.309740.3.579.2.125 9 1939 Unknown [id number] 2.16.840.1.123391.3.579.2.125 9 1939 Unknown [id number] 2.16.840.1.128270.3.579.2.125 9 1939 Unknown [id number] 2.16.840.1.443951.3.579.2.125 9 Social History Date Type Detail Facility Start: 12-26-2017 End: 04-16-2019 Tobacco smoking status MSIS Former smoker [facility] End: 06-12-1974 History of tobacco use Current smoker [facility] Start: 1940 Sex Assigned At Not on file [facility] Start: 03-28-2019 End: 04-30-2020 Alcohol intake Current non-drinker of alcohol (finding) [facility] End: 06-12-1971 History of tobacco use Cigarette Smoker [facility] Start: 04-16-2019 End: 03-07-2023 Alcohol intake No [place] Start: 03-28-2019 End: 03-06-2023 Tobacco use and exposure Never used [facility] Start: 04-30-2020 End: 03-07-2023 Cigarettes smoked current (pack per day) [facility] Start: 04-30-2020 [facility] History of tobacco use [facility] Start: 03-06-2023 [facility] Start: 04-13-2023 End: 07-24-2023 Alcohol intake Ex-drinker (finding) [facility] Start: 03-06-2023 [facility] Equipment Procedure Code Equipment Code Equipment Origin al Text Equipment Identifier Dates Closure 6fr Prog lide - [id number] Start: 02-22-2018 Device 21mm Watc hman Sandy Closure - [id number] Start: 02-22-2018 Device Watchman Procedure Sandy Closure - [id number] Start: 02-22-2018 Closure 6fr Prog lide - [id number] Start: 02-22-2018 Device 21mm Watc hman Sandy Closure - [id number] Start: 02-22-2018 Device Watchman Procedure Sandy Closure - [id number] Start: 02-22-2018 Closure 6fr Prog lide - [id number] Start: 02-22-2018 Device 21mm Watc hman Sandy Closure - [id number] Start: 02-22-2018 Device Watchman Procedure Sandy Closure - [id number] Start: 02-22-2018 Closure 6fr Prog lide - [id number] Start: 02-22-2018 Device 21mm Watc hman Sandy Closure - [id number] Start: 02-22-2018 Device Watchman Procedure Sandy Closure - [id number] Start: 02-22-2018 Closure 6fr Prog lide - [id number] Start: 02-22-2018 Device 21mm Watc hman Sandy Closure - [id number] Start: 02-22-2018 Device Watchman Procedure Sandy Closure - [id number] Start: 02-22-2018 Closure 6fr Prog lide - [id number] Start: 02-22-2018 Device 21mm Watc hman Sandy Closure - [id number] Start: 02-22-2018 Device Watchman Procedure Sandy Closure - [id number] Start: 02-22-2018 Clinical Notes 11-03-2020 to 07-24-2023 Cedric Carr MD - 07/24/2023 11:30 AM EST Note Date & Type Note Facility 07-24-2023 History of Present illness Narrative Patient ID: Nette Hammond is a 83 y.o. male who presents for: Reevaluation of his anxiety and his dementia. They have also noticed he is significantly unstable on his feet. They're concerned of falls. To their knowledge there have been no falls. The patient has with them today and independent historian, His son. Independent historian is here to make sure that the information related to us in the HPI and review of systems is accurate. They are also here to help the patient to follow through with treatment plans established today. Review of Systems Decreased appetite and increased napping during the day. Objective The patient is pleasant and in no acute distress The head is normocephalic and atraumatic The patient has Fair eye contact and clear speech. His affect is appropriate but rather constricted. He certainly has word search during discussion or he can't remember some of the basics. No formal testing was done today. He did have significant difficulty in standing. He pushed off and his son had to help him stand. He was somewhat tremulous in his legs. When I asked him to walk a little bit his steps were very short and he appeared insecure. During sitting I examined his quadriceps and I can easily get on hand around his distal thigh with space left over. He is unable to significantly pushed me away or pull me back with his hamstrings in either leg although he is overcoming gravity. Visit Vitals Smoking Status Never Allergies Allergen Reactions Lisinopril Other Reaction(s): angiodemia Sulfa Antibiotics Other Reaction(s): Hives Current Outpatient Medications Medication Instructions ALPRAZolam XR (ALPRAZOLAM XR) 1 mg, Oral, Every morning ARIPiprazole (ABILIFY) 5 mg, Oral, Nightly aspirin (ASPIR) 81 mg, Oral, Daily donepezil (ARICEPT) 20 mg, Oral, Nightly escitalopram (LEXAPRO) 10 mg, Oral, Nightly fexofenadine (NICOLE ALLERGY) 180 mg, Oral, Every 24 hours hydrALAZINE (APRESOLINE) 25 mg, Oral, 2 times daily hydrOXYzine HCl (ATARAX) 25 mg, Oral, Every 8 hours PRN lisinopril 5 mg, Oral, Daily memantine (NAMENDA) 5 mg, Oral, 2 times daily metoprolol tartrate (LOPRESSOR) 25 mg, Oral, 2 times daily Multiple Vitamin (Multi-Vitamin) tablet 1 tablet, Oral, Daily RT Assessment/Plan Diagnoses and all orders for this visit: Vascular dementia without behavioral disturbance (CMS/HCC) - ARIPiprazole (Abilify) 5 MG tablet; Take 0.5 tablets (2.5 mg) by mouth at bedtime Chronic problem that does seem to be worsening. Now that his has been placed in a mcc he seems to have significantly less agitation and previous. He is also sleeping longer now. No evidence of delusions or hallucinations. I discussed with the son that let's go ahead and try and back the stroke down to a half tablet. They will give this 10-14 days and then give me an update. I would like to try to decrease some of the sedating medications. White matter disease Chronic problem with anticipated progression. Component of his vascular dementia. Followed longitudinally. Chronic fatigue Chronic problem that is unstable and worsening. I suspect without the agitation from his who also has dementia that he may be overmedicated and as noted above. Polypharmacy Chronic problem Evaluating the patient's electronic health record today, we specifically note the patient has 5 or more prescriptions and/or multi-morbidity defined as 5 or more diagnoses. Treatment regimens are increasingly complex and potentially harmful, and people with polypharmacy need regular review and prescribing optimisation, with at least a moderate risk of morbidity from the medications themselves creating at least a moderate degree of evaluation and management. This was done today and reviewed with the patient. [facility] https://www.ncbi.nlm.nih.gov/pmc/ar ticrebeca/MSE2959147/. 2015; 13: 74. Published online 2014Sep 16. https://www.ncbi.nlm.nih.gov/pubmed /58188007 The rising tide of polypharmacy and drug-drug interactions: population database analysis 6922-5621 https://www.ncbi.nlm.nih.gov/pmc/ar ticles/ALZ5968651/. 5. Sourav Allison, Rachelle GREENE, Yudith M, Abran G, Elva S, Jackie B. Epidemiology of multimorbidity and implications for health care, research, and medical education: a cross-sectional study. Lancet. 2012;380:37-43. Generalized weakness - Ambulatory referral to Physical Therapy; Future New, chronic problem, There is certainly a significant decrease in his strength and stability. After discussion we will refer to physical therapy At risk for falling - Ambulatory referral to Physical Therapy; Future Moderate major depression (CMS/HCC) - ARIPiprazole (Abilify) 5 MG tablet; Take 0.5 tablets (2.5 mg) by mouth at bedtime Adjunctive treatment for his depression. As noted above will decrease dose. documented in this encounter [facility] 03-24-2023 Note ID Cardiology - [facility] Subjective Nette Hammond Sr. is a 82 y.o. year old male patient being seen for Follow-up Patient Active Problem List Diagnosis Acute non-ST segment elevation myocardial infarction (CMS/HCC) Anxiety Chronic kidney disease Coronary atherosclerosis Depressive disorder Essential hypertension Paroxysmal atrial fibrillation (CMS/HCC) Presence of Watchman left atrial appendage closure device Acquired hypothyroidism Adjustment disorder Adult situational stress disorder MENDEZ (acute kidney injury) (CMS/HCC) Antiplatelet or antithrombotic long-term use Biatrial enlargement Bradycardia Cerebrovascular accident (CVA) (CMS/HCC) Chronic fatigue Creatinine elevation Echocardiogram abnormal Epidermoid cyst of skin Generalized anxiety disorder HLD (hyperlipidemia) Hypertensive emergency Hypertensive nephropathy 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 current use of anticoagulant therapy Lung granuloma (CMS/HCC) Memory loss Mild cognitive disorder Mild cognitive impairment of uncertain or unknown etiology Moderate major depression (CMS/HCC) Normal body mass index (BMI) Osteoarthritis of spine Partial seizures (CMS/HCC) Personal history of malignant neoplasm of prostate Controlled substance agreement signed Postinflammatory pulmonary fibrosis (CMS/HCC) Primary malignant neoplasm of prostate (CMS/HCC) Seasonal allergic rhinitis due to pollen Stress due to family tension Stress due to illness of family member Stricture of artery (CMS/HCC) Subdural hematoma (CMS/HCC) Tortuous aorta (CMS/HCC) Vascular dementia without behavioral disturbance (CMS/HCC) Vitamin D deficiency White matter disease No family history on file. Social History Tobacco Use Smoking status: Never Smokeless tobacco: Never Substance Use Topics Alcohol use: Not Currently Drug use: Never MAR Nette is seen in follow-up. He is an 82-year-old man with prior history of hypertension, chronic kidney disease, paroxysmal atrial fibrillation status post a watchman procedure in [place] [He is not sure why he needed the watchman procedure], he used to be on flecainide but this was stopped due to coronary artery disease, coronary artery disease discovered in the setting of NSTEMI in October 2020 at which time she he underwent a Synergy drug-eluting stenting to the LAD. The circumflex and RCA had mild disease. At a prior visit in December 2020 he was prescribed lisinopril however he did not take it as he had prior side effect of edema with lisinopril. He is currently on clopidogrel 75 mg daily, atorvastatin 80 mg daily, fenofibrate 48 mg daily, metoprolol 25 mg twice daily, lisinopril 5 mg daily, and hydralazine 25 mg bid. At visit of 07/26/2021 he was in atrial fibrillation. He had elevated heart rate. I started him on metoprolol tartrate 25 mg twice daily. Today he reports that he has been doing well. He has no angina, no heart failure symptoms. No lower extremity edema, no palpitations. No dizziness or lightheadedness. Review of Systems All other systems reviewed and are negative. Objective Visit Vitals BP 126/78 Pulse 57 Ht 1.727 m (5' 8 ) Wt 72.6 kg (160 lb) SpO2 96% BMI 24.33 kg/m??? Smoking Status Never BSA 1.87 m??? Physical Exam Constitutional: Appearance: He is well-developed. He is not ill-appearing. HENT: Head: Normocephalic and atraumatic. Nose: Nose normal. Eyes: General: No scleral icterus. Pupils: Pupils are equal, round, and reactive to light. Neck: Thyroid: No thyromegaly. Vascular: No JVD. Cardiovascular: Rate and Rhythm: Normal rate. Rhythm irregularly irregular. Pulses: Radial pulses are 2+ on the right side and 2+ on the left side. Heart sounds: Normal heart sounds. No murmur heard. No friction rub. No gallop. Pulmonary: Effort: Pulmonary effort is normal. No respiratory distress. Breath sounds: Normal breath sounds. No wheezing or rales. Chest: Chest wall: No tenderness. Abdominal: General: Bowel sounds are normal. There is no distension. Palpations: Abdomen is soft. Tenderness: There is no abdominal tenderness. Musculoskeletal: General: No swelling. Cervical back: Neck supple. Skin: General: Skin is warm and dry. Neurological: General: No focal deficit present. Mental Status: He is alert and oriented to person, place, and time. Psychiatric: Mood and Affect: Mood normal. Behavior: Behavior is cooperative. Judgment: Judgment normal. Allergies Allergies Allergen Reactions Sulfoil Hives Medications Current Outpatient Medications: ALPRAZolam (Xanax) 1 mg tablet, in the morning., Disp: , Rfl: amLODIPine (Norvasc) 5 mg tablet, Take 1 tablet by mouth in the morning., Disp: , Rfl: aspirin 81 mg EC tablet, Take 1 tablet by mouth in the morning., Disp: , Rfl: atorvastatin (Lipitor) 80 mg tablet, TAKE ONE TABLET BY MOUTH DAILY DIRECTED, Disp: 30 tablet, Rfl: 11 cholecalciferol (Cristela (more content not included)... [facility] 08-24-2022 Note Renal condition is Stable [facility] 08-24-2022 Note Rate well controlled continue metoprolol, no anticoagulation status post watchman implantation [facility] 08-24-2022 Note Hypertension is Well controlled 136/87 and daughter states blood pressure is even better at home Continue lisinopril, hydralazine and Metoprolol [facility] 08-24-2022 Note No anticoagulation s tatus post watchman implantation [facility] 08-24-2022 Note Coronary artery dise ase is Stable Without any concerning symptoms Continue goal-directed medical therapy with Plavix, metoprolol and Lipitor continue risk factor modifications- heart healthy diet, regular exercise as tolerated and continue all medications. [facility] 08-24-2022 Note Pt is here for 8 mon th F/U Review of Systems All other systems reviewed and are negative. [facility] 08-24-2022 Note [facility] CARDIOLOGY PROGR ESS NOTE HPI: Nette Hammond . is a 82 y.o. male here for Routine follow-up of CAD status post PCI, proximal atrial fib, history of NM, hyperlipidemia, hypertension and CKD Currently denies chest pain, shortness of breath, orthopnea, palpitations. All states he feels well denies any exercise limiting symptoms Pt is here for 8 month F/U Previous per Dr Cohen Nette is a 81-year-old man with history of atrial fibrillation, status post watchman procedure, chronic kidney disease stage IIIa, hypertension, and coronary artery disease status post NSTEMI and stenting of the LAD in October 2020. He has no angina and no heart failure symptoms. His exam shows that he is in atrial fibrillation. I explained to him and his daughter that it is okay to seek rate control only given he is not symptomatic with it. At this time I will continue metoprolol tartrate 25 mg twice daily. His blood pressure is elevated. He is currently taking lisinopril 2.5 mg daily [we double check that with his medications at home]. It was mentioned previously that he is allergic to lisinopril with possible edema however he has been taking it with no issues. I will increase it to 5 mg once daily. His recent lipid profile shows reasonable control. Given his advanced age I will continue atorvastatin 80 mg daily. I will continue fenofibrate. I also discussed that given his an acute NM episode in October 2020, he will need to continue dual antiplatelet therapy for 1year and then in October 2021 he will stop Plavix and continue aspirin 81 mg daily indefinitely. Allergies Allergen Reactions Sulfoil Hives Medications: Current Outpatient Medications on File Prior to Visit Medication Sig Dispense Refill ALPRAZolam (Xanax) 1 mg tablet in the morning. atorvastatin (Lipitor) 80 mg tablet atorvastatin 80 mg tablet TAKE ONE TABLET BY MOUTH DAILY DIRECTED clopidogrel (Plavix) 75 mg tablet clopidogrel 75 mg tablet TAKE ONE TABLET BY MOUTH DAILY donepezil (Aricept) 5 mg tablet donepezil 5 mg tablet TAKE ONE TABLET BY MOUTH AT BEDTIME escitalopram (Lexapro) 5 mg tablet escitalopram 5 mg tablet TAKE ONE TABLET BY MOUTH ONCE DAILY hydrALAZINE (Apresoline) 25 mg tablet hydralazine 25 mg tablet TAKE ONE TABLET BY MOUTH TWICE A DAY DIRECTED hydrOXYzine HCL (Atarax) 25 mg tablet hydroxyzine HCl 25 mg tablet TAKE ONE TABLET BY MOUTH EVERY 8 HOURS NEEDED lisinopril 5 mg tablet lisinopril 5 mg tablet TAKE ONE TABLET BY MOUTH ONCE DAILY metoprolol tartrate (Lopressor) 25 mg tablet Take 1 tablet (25 mg) by mouth in the morning and at bedtime. 180 tablet 3 metoprolol tartrate (Lopressor) 25 mg tablet Take 25 mg by mouth. mirtazapine (Remeron) 30 mg tablet mirtazapine 30 mg tablet TAKE ONE TABLET BY MOUTH AT BEDTIME nitroglycerin (Nitrostat) 0.4 mg SL tablet nitroglycerin 0.[address] 1 TABLET UNDER YOUR TONGUE EVERY 5 MINUTES NEEDED FOR CHEST PAIN FOR 3 DOSES ONLY. IF NO RELIEF, CALL 911 No current facility-administered medications on file prior to visit. Physical Exam: Constitutional: Appearance: Normal appearance. Without apparent distress HENT: Head: Normocephalic and atraumatic. Nose: Nose normal. Mouth/Throat: Mouth: Mucous membranes are moist. Eyes: Extraocular Movements: Extraocular movements intact. Conjunctiva/sclera: Conjunctivae normal. Neck: Vascular: No JVD. Cardiovascular: Rate and Rhythm: Normal rate and regular rhythm. Pulses: Dorsalis pedis pulses are 2 on the right side and 2on the left side. Posterior tibial pulses are 2 on the right side and 2 on the left side. Heart sounds: Normal heart sounds, S1 normal and S2 normal. Pulmonary: Effort: Pulmonary effort is normal. Breath sounds: Normal breath sounds. Abdominal: General: Bowel sounds are normal. Palpations: Abdomen is soft. Musculoskeletal: General: Normal range of motion. Cervical back: Normal range of motion. Right lower leg: No edema. Left lower leg: No edema. Skin: General: Skin is warm and dry. Capillary Refill: Capillary refill takes less than 2 seconds. Neurological: General: No focal deficit present. Mental Status: he is alert and oriented to person, place, and time. Psychiatric: Mood and Affect: Mood normal. Behavior: Behavior normal. Thought Content: Thought content normal. Judgment: Judgment normal. Labs: 02/03/2022 CBC normal Renal Function normal Liver function normal Cholesterol 116, HDL 40, triglyceride 94 LDL 57.3-[id number] Last lab values have been reviewed CV Testing: Cath 11/02/2020 Echo 11/02/2020- LV systolic function normal ejection fraction 55%. Systolic dysfunction RV is normal size and normal systolic function Left atrium is normal size Mild tricuspid regurgitation No echocardiogram results found for the past 12 domonique (more content not included)... [facility] 11-03-2020 Note MR#: [id number] I [facility] Pt. Name: Nette Hammond Sr Admitted: 10/31/2020 Discharged: 11/03/2020 Date of : 1940 Physician: Bar Hathaway MD DISCHARGE SUMMARY FINAL DIAGNOSES: 1. Non-ST elevation myocardial infarction. 2. Asymptomatic sinus bradycardia. 3. Uncontrolled hypertension. 4. History of atrial fibrillation. 5. Chronic kidney disease stage 2 to 3. HISTORY OF PRESENT ILLNESS AND HOSPITALIZATION COURSE: The patient is an 80-year-old male with past medical history significant for uncontrolled hypertension, history of atrial fibrillation, on amiodarone and Eliquis, history of bradycardia. He was transferred from [facility] for chest discomfort. Apparently, he was walking outside when he developed chest discomfort, which is unusual for him, described as a pressure in the mid of the chest with no radiation. Initial evaluation in [facility] showed elevated troponins and was sent here to be evaluated urgently by Cardiology services. The patient was admitted to the medical floor. On admission, he was found to have a troponin of 0.57. He was started on heparin drip and he was seen by Cardiology Services. He had coronary angiogram done on October 30, 2020, which showed 80% stenosis of mid LAD. He received a drug-eluting stent for that and he was started on Plavix 75 mg daily on top of his daily dose of 81 mg of aspirin. The patient was started on high-intensity statin with atorvastatin 80 mg. Zetia was added. The patient was not on beta-geoff due to heart rate in the 40s and 50s during his hospitalization. The patient was also noticed to have uncontrolled hypertension. His amlodipine dose was increased to 10 mg and hydrochlorothiazide and hydralazine were added to his medication list. The patient will be seen by the Cardiology Services as an outpatient. He was discharged in stable condition on November 03, 2020, to home. PHYSICAL EXAMINATION: On the day of discharge is as follows: GENERAL: He is an elderly male, in no distress. HEENT: Pupils equal, round, reactive to light. Extraocular movement intact. Mucous membranes moist. LUNGS: Clear to auscultation with no added sounds. HEART: Normal S1, S2. Regular rate and rhythm. No murmurs. ABDOMEN: Soft, nontender, nondistended. Positive bowel sounds. EXTREMITIES: No edema. MEDICATIONS ON DISCHARGE: As per the medication reconciliation list. INSTRUCTIONS ON DISCHARGE: He was instructed to keep his appointment with the Cardiology Services and to follow up with his PCP for further adjustment of his antihypertensive medications as required and to seek medical attention if he develops any lightheadedness, chest pain, shortness of breath. Time of discharge 41 minutes. Electronically Signed by: Bar Hathaway MD 11/04/2020 04:05 P _ Bar Hathaway MD Date Dict: 11/03/2020/12:20 P/Bar Hathaway MD Date Trans: 11/03/2020 01:59 P/chandler [id number] cc: Cedric Carr M.D. [address] [place] [id number] Braeden Schaefer M.D. [address] [facility] [address] [facility] Evaluation note Diagnosis Vascular dementia without behavioral disturbance (CMS/HCC) White matter disease Chronic fatigue Other malaise and fatigue Polypharmacy Issue of repeat prescriptions Generalized weakness At risk for falling Personal history of fall Moderate major depression (CMS/HCC) Major depressive disorder, single episode, moderate documented in this encounter [facility] Assessments Diagnosis PAF (paroxysmal atrial fibri llation) (HCC) Atrial fibrillation Diagnosis PAF (paroxysmal atrial fibri llation) (HCC) - Primary Atrial fibrillation Diagnosis PAF (paroxysmal atrial fibri llation) (HCC) Atrial fibrillation MENDEZ (acute kidney injury) (H CC) Diagnosis PAF (paroxysmal atrial fibri llation) (HCC) Atrial fibrillation Diagnosis PAF (paroxysmal atrial fibrillation) (HCC) Atrial fibrillation Diagnosis Essential hypertension Unspecified essential hypertension Diagnosis Essential hypertension Unspecified essential hypertension Other hyperlipidemia Vitamin D deficiency disease Unspecified vitamin D deficiency Chronic atrial fibrillation currently in NSR for 3 years on flecainaide Atrial fibrillation Diagnosis Essential hypertension Unspecified essential hypertension Other hyperlipidemia Vitamin D deficiency disease Unspecified vitamin D deficiency Chronic atrial fibrillation currently in NSR for 3 years on flecainaide Atrial fibrillation Diagnosis Essential hypertension Unspecified essential hypertension Chronic atrial fibrillation currently in NSR for 3 years on flecainaide Atrial fibrillation Vitamin D deficiency disease Unspecified vitamin D deficiency Other hyperlipidemia Diagnosis Vitamin D deficiency disease Unspecified vitamin D deficiency Essential hypertension Unspecified essential hypertension Other hyperlipidemia Diagnosis Essential hypertension Unspecified essential hypertension Chronic atrial fibrillation currently in NSR for 3 years on flecainaide Atrial fibrillation Summary Purpose Family History No Family History Records FoundNo Family History Records FoundNo Family History Records FoundNo Family History Records FoundNo Family History Records FoundNo Family History Records FoundNo Family History Records FoundNo Family History Records Found Advance Directives No Advanced Directives Records FoundLatest Code Status on File Code Status Date Activated Date Inactivated Comments Full Code 02/22/2018 10:31 AM Full Code 02/22/2018 8:23 AM 02/22/2018 10:31 AM Documents on File Type Date Recorded Patient Lawyer Expl anation Advance Directives and Livin g Will 03/28/2019 1:20 PM Documents on File Type Date Recorded Patient Lawyer Expl anation Advance Directives and Living Will Power of Crm Marketing Executive Latest Code Status on File Code Status Date Activated Date Inactivated Comments Full Code 03/31/2016 9:24 PM 04/11/2016 2:27 PM Full Code 12/26/2015 7:02 PM 12/31/2015 5:47 PM Documents on File Type Date Recorded Patient Lawyer Expl anation ACP-Advance Directive ACP-Power of Crm Marketing Executive Documents on File Type Date Recorded Patient Lawyer Expl anation ACP-Advance Directive ACP-Power of Crm Marketing Executive Latest Code Status on File Code Status Date Activated Date Inactivated Comments Full Code 03/31/2016 9:24 PM 04/11/2016 2:27 PM Full Code 12/26/2015 7:02 PM 12/31/2015 5:47 PM Documents on File Type Date Recorded Patient Lawyer Expl anation Advance Directives and Living Will Power of Crm Marketing Executive Discharge Instructions * Austen Jeff Nette, DREW - 02/22/2018 Successful Left Atrial Appendage Closure with Watchman Device RECCOMENDATIONS: Continue anticoagulation You will have a follow up appointment in the [facility] Clinic and a RAYMOND scheduled in 30-45 days. If the device placement is satisfactory at that time you may be able to stop anticoagulation and start Plavix 75 mg daily, which will continue for 6 months post implant date. Aspirin 81 mg will continue indefinitely. WHAT TO EXPECT: The wound at your groin site may be sore or tender during the first week. There may be some slight oozing around the bandaged area. If you have a bruise, it could last for up to 2 weeks. INSTRUCTIONS AND CARE: Do not lift anything weighing more than 10 pounds for 1 week, or until the wound site has healed. Do not use a hot tub, take a bath, or swim until the wound site is healed. You may shower the next day. You can resume normal activity, including driving in 2 days. After 24 hours, remove the bandaid. Gently clean the wound site with mild soap and water, then dry the wound site and cover with a Band-Aid. Cover the wound site with a new Band-Aid each day until the skin heals and there is no open areas. Change the bandage if it becomes soiled or wet, and replace it with a fresh one. ACTIVITY: Limit stair climbing, doing a lot of bending, squatting or stooping for 24-48 hours. Do not lift more than 10 pounds for one week Limit strenuous activity and exercise for a few weeks. Weigh yourself every morning at the same time and record it. PRECAUTIONS: Please let your dentist and primary care provider know that you will need antibiotic prophylaxis prior to any dental procedures for 6 months following WATCHMAN implant CALL YOU DOCTOR IF YOU HAVE: Increased pain, swelling or redness at the site. Bleeding at the site - apply pressure with your hand for 20 minutes. If the bleeding stops, apply anew band-aid. If the bleeding does not stop, continue to apply pressure and call your family doctor. If your doctor is not available, go to the nearest emergency room. A weight gain of 3 pounds in 2 days or 5 pounds in 1 week Difficulty breathing, especially at rest or when lying flat in bed Waking up breathless at night Frequent, dry, hacking cough, especially when lying down Swollen feet, ankles, legs and/or abdomen in this encounter* Jay Du RN - 04/06/2018 Sedation for a Medical Procedure: Care Instructions Your Care Instructions For a minor procedure or surgery, you will get a sedative to help you relax. This drug will make you sleepy. It is usually given in a vein (by IV). Common side effects from sedation include: Feeling sleepy. (Your doctors and nurses will make sure you are not too sleepy to go home.) If you have been diagnosed with sleep apnea, wear your CPAP device while napping when you return home. Nausea and vomiting. This usually does not last long. Feeling tired. Follow-up care is a gamez part of your treatment and safety. Be sure to make and go to all appointments, and call your doctor if you are having problems. It's also a good idea to know your test resultsand keep a list of the medicines you take. How can you care for yourself at home? Activity Don't do anything for 24 hours that requires attention to detail. It takes time for the medicine effects to completely wear off. For your safety, you should not drive or operate any machinery that could be dangerous until tomorrow. Rest when you feel tired. Getting enough sleep will help you recover. Diet Do not eat or drink anything until 230pm You can eat your normal diet, unless your doctor gives you other instructions. If your stomach is upset, try clear liquids and bland, low-fat foods like plain toast or rice. Don't drink alcohol for 24 hours. Medicines Be safe with medicines. Read and follow all instructions on the label. Continue your prescribed medications as instructed by your provider. When should you call for help? Call 911 anytime you think you may need emergency care. For example, call if: You have severe trouble breathing. You passed out (lost consciousness). Call your doctor now or seek immediate medical care if: You develop problems swallowing or have severe throat pain. Call [phone]. A scratchy throat liz normal side effect of the procedure. You have trouble breathing. You have ongoing or worsening nausea or vomiting. You have a fever. You have a new or worse headache. The medicine is not wearing off and you can't think clearly. Watch closely for changes in your health, and be sure to contact your doctor if: You do not get better as expected. The following attachments cannot be sent through Care Everywhere. * ECHOCARDIOGRAM: TRANSESOPHAGEAL: POST-OP (YAKUT) in this encounter History of Present Illness * Jennifer Tan RN - 09/12/2018 8:20 AM EDT Office notes and lab results routed to PCP and web content producer. in this encounter* Jennifer Tan RN - 09/12/2018 3:46 PM EDT Spoke with pt's son Meño and let him be aware of Nette' creatine level. Angela Osorio ASSIGNMENT DESK ASSISTANT would like him to follow up with his PCP. Son verbalized understanding. in this encounter* Lizzie Nichole RN - 03/28/2019 1:47 PM EDT Nette arrived ambulatory with his and son for 1 year s/p Watchman clinic visit. He had no hospital admissions since 6 month Watchman visit. No bleeding, no falls. Medications and allergies reconciled. Nette Jeff NP updated and in to see him. Labs drawn Modified Amigo Scale and The Holli Index were provided by the [facility]- www[facility]strokecenter.org 0 No symptoms at all 1 No significant disability despite symptoms; able to carry out all usual activities 2 Slight disability; unable to carry out all previous activities, but able to look after own affairs without assistance 3 Moderate disability; requiring some help, but able to walk without assistance 4 Moderately severe disability; unable to walk without assistance and unable to attend to own bodily needs without assistance 5 Severe disability; bedridden, incontinent and requiring constant nursing care and attention Nette's Modified Darron scale is 0 based on no remaining symptoms. The Holli Index Activity Score Feeding :10 = independent, 5= needs help cutting, spreading butter, etc or requires modified diet, 0= unable 10 Bathing : 5 = independent (or in shower), 0= dependent 5 Grooming : 5 = independent face/hair/teeth/shaving (implements provided), 0= needs help with personal care 5 Dressing : 10 = independent (including buttons, zips, laces, etc.), 5= needs help but can do half unaided, 0= dependent 10 Bowels : 10 = continent, 5= occasional accident, 0= incontinent or( needs to be given enemas) 10 Bladder : 10 = continent, 5= occasional accident, 0= incontinent, or catheterized and unable to manage alone 10 Toilet Use : 10 = independent (on and off, dressing, wiping), 5= need some help, but can do something alone, 0= dependent 10 Transfers (Bed to Chair and Back) : 15 = independent, 10= minor help (verbal or physical) 5= major help (1 or 2 people, physical), can sit, 0= unable, no sitting balance 15 Mobility (on Level Surfaces) : 15 = independent (but may use any aid; for example, stick) >50 yards, 10= walks with help of 1 person (verbal or physical) > 50 yards, 5=wheelchair independent, including corners, > 50 yards, 0= immobile or < 50 yards 15 Stairs : 10 = independent, 5= needs help (verbal, physical, carrying aid), 0= unable 10 Total (0 - 100) : 100 Wale BUTTERFIELD, Steve Salvador. Functional evaluation:the Holli Index. [place] [employer] Med Journal 1965;14:51-61.Used with permission. * Austen Jeff CNP - 03/28/2019 1:46 PM EDT [facility] Patient Name: Nette Hammond MR #: [id number] : 1940 Physicians: Cedric Carr MD (Family) Perpetual Assessment: Nette Hammond is a 78 y.o. male with a past medical history significant forPAF, HTN, HLD, possible CKD (baseline Cr 1.2-1.3) and bilateral SDH s/p burrhole drainage and left craniotomy in 2016. He underwent SANDY closure with WATCHMAN device 02/22/18. He presented to the structural heart clinic 09/11/18 for 1 year follow up. Assessment and Plan: Paroxysmal Atrial Fibrillation S/p SANDY closure with WATCHMAN Per history with [id number] score of 3 and HAS-BLED score of 3 - S/p LAAO with WATCHMAN on 02/22/18 under general anesthesia - Limited TTE 02/22/18 showed EF 60-65% with no evidence of pericardial effusion - S/p DAPT with 81 mg of ASA and Plavix - Plavix stopped 09/22/18, now ASA 81 mg alone indefinitely - Follow up in the structural heart clinic for 2 year follow up, to be scheduled Chief Complaint/Reason for Visit:1 year follow up s/p SANDY closure with WATCHMAN History of Present Illness: Nette Hammond is a 78 y.o. male with a past medical history significant for PAF, HTN, HLD, possible CKD (baseline Cr 1.2-1.3) and bilateral SDH s/p burrhole drainage and left craniotomy in 2015. Heunderwent SANDY closure with WATCHMAN device 02/22/18. He presented to the structural heart clinic 09/11/18 for 1 year follow up. Pt denies hospital visits since he was last seen in the [facility]. He further denies bleeding events or CVA like symptoms. He denied any falls, does not use any assistive devices for ambulation. Primary web content producer: Dr. Rtuh and PCP: Dr. Carr History: Past Medical History: Diagnosis Date A-fib (HCC) Arrhythmia Cancer (HCC) prostate CVA (cerebral vascular accident) (HCC) 12/2015, 03/2016 History of cardioversion 2009, 2011 Hyperlipidemia Hypertension Subdural hematoma (HCC) 12/2015, 03/2016 Past Surgical History: Procedure Laterality Date RYDER HOLE FOR SUBDURAL HEMATOMA 2015 CHOLECYSTECTOMY EP - INTERVENTION N/A 02/22/2018 Procedure: WATCHMAN Left Atrial Appendage Closure w/ Jose De Jesus or Bhartah; Surgeon: Boy Austin MD; Location: [facility]; Service: Cardiovascular HERNIA REPAIR 1989 PROSTATE SURGERY ROTATOR CUFF REPAIR 2013 Family History Problem Relation Age of Onset Mental retardation Son No Known Problems Mother Cancer Father Social History Socioeconomic History Marital status: Spouse name: Not on file Number of children: Not on file Years of education: Not on file Highest education level: Not on file Occupational History Not on file Social Needs Financial resource strain: Not on file Food insecurity: Worry: Not on file Inability: Not on file Transportation needs: Medical: Not on file Non-medical: Not on file Tobacco Use Smoking status: Former Smoker Last attempt to quit: 06/12/1974 Years since quittin.8 Smokeless tobacco: Never Used Substance and Sexual Activity Alcohol use: No Drug use: No Sexual activity: Not on file Lifestyle Physical activity: Days per week: Not on file Minutes per session: Not on file Stress: Not on file Relationships Social connections: Talks on phone: Not on file Gets together: Not on file Attends jew service: Not on file Active member of club or organization: Not on file Attends meetings of clubs or organizations: Not on file Relationship status: Not on file Other Topics Concern Not on file Social History Narrative Not on file Allergy Information: I have reviewed the patient's allergies. Sulfa (sulfonamide antibiotics) Home Medications: Outpatient Medications as of 03/28/2019 Medication Sig acetaminophen (TYLENOL) 500 MG tablet Take 500 mg by mouth every 6 (six) hours as needed for pain. aspirin 81 MG EC tablet Take 81 mg by mouth daily . atorvastatin (LIPITOR) 10 MG tablet Take 20 mg by mouth daily . fenofibrate (TRICOR) 48 MG tablet Take 48 mg by mouth daily Give with food . flecainide (TAMBOCOR) 100 MG tablet Take 100 mg by mouth 2 (two) times a day. hydroCHLOROthiazide (MICROZIDE) 12.5 mg capsule Take 25 mg by mouth daily . lisinopril (PRINIVIL,ZESTRIL) 20 MG tablet Take 40 mg by mouth daily . multivitamin (multivitamin) per tablet Take 1 tablet by mouth daily. venlafaxine (EFFEXOR-XR) 75 MG 24 hr capsule Take 75 mg by mouth daily . Review of Systems: Constitutional: No recent illness/fever/chills. Denies generalized fatigue. Eyes: No vision changes CV: Denies chest pain Resp: Denies shortness of breath GI: No nausea/vomitting/diarrhea : No hemarturia MSK: No joint pain/edema Neuro: Denies lightheadedness/dizziness/syncope/near syncope Endo: Denies history of DM Skin: No rashes Physical Examination: Vital Signs: BP (!) 178/86 Pulse (!) 53 Temp 97.7 F (36.5 C) (Oral) Resp 16 Wt 71.7 kg (158 lb) SpO2 100% BMI 24.02 kg/m General: No acute distress. Alert and cooperative. Appears stated age Head: Normocephalic, without obvious abnormality, atraumatic Neck: Supple, symmetrical, trachea midline, no carotid bruits or JVD Respiratory: Clear to auscultation bilaterally without wheezes, rhonchi, or crackles. No accessory muscle use or distress noted. Cardiovascular: Regular rhythm, no murmur. Abdomen: Soft, non-tender, nondistended Extremities: No cyanosis, no edema Skin: Skin color, texture, turgor normal, no rashes or lesions Musculoskeletal: NOE x 4 Neurologic: Alert and oriented x 3, non focal exam Psych: Pleasant/cooperative with assessment with appropriate mood and affect. Nette Jeff, MS, MUSEUM TECHNICIAN-FACT CHECKER Structural Heart Nurse Practitioner [facility]: 03/28/2019 1:46 PM documented in this encounter* Jennifer Tan RN - 03/23/2020 10:07 AM EDT Labs received from [facility] and scanned into system. documented in this encounter Reason for Referral Status Reason Specialty Diagnoses / Procedures Referre d By Contact Referred To Contact [facility] Cardiology Diagnoses Essential hypertension Other hyperlipidemia Vitamin D deficiency disease Chronic atrial fibrillation (HCC) Procedures EKG 12 Lead Kyle Ruth MD [address] [place] [address] Status Reason Specialty Diagnoses / Procedures Referre d By Contact Referred To Contact [facility] Diagnoses Essential hypertension Chronic atrial fibrillation Procedures EKG 12 Lead Kyle Ruth MD [address] [place] [address] Specialty Diagnoses / Procedures Referred By Contac t Referred To Contact Physical Therapy Diagnoses Generalized weakness At risk for falling Procedures WI OFFICE/OUTPATIENT NEW HIGH MDM 60 MINUTES Cedric Carr MD [address] [place] [address] Tish Yañez PT Referral ID Status Reason Start Date Expiration Date Visits Requested Visits Authorized [id number] Authorized Specialty Services Required 07/24/2023 01/20/2024 10 10 Additional Source Comments (unrecognized sect ion and content) No Status Records FoundNo Status Records FoundNo Status Records FoundNo Status Records FoundNo Status Records FoundNo Status Records FoundNo Status Records FoundNo Status Records Found INFORMATION SOURCE (unrecogn ized section and content) DATE CREATED AUTHOR 01/28/2018 [facility] DATE CREATED AUTHOR AUTHOR'S ORGANIZ ATION 02/07/2018 [facility] DATE CREATED AUTHOR AUTHOR'S ORGANIZ ATION 03/23/2020 [facility] DATE CREATED AUTHOR AUTHOR'S ORGANIZ ATION 05/02/2020 [facility] DATE CREATED AUTHOR AUTHOR'S ORGANIZ ATION 11/06/2020 [facility] DATE CREATED AUTHOR AUTHOR'S ORGANIZ ATION 02/05/2022 [facility] DATE CREATED AUTHOR AUTHOR'S ORGANIZ ATION 03/26/2023 [facility] DATE CREATED AUTHOR AUTHOR'S ORGANIZ ATION 08/23/2023 [facility] dical Specialists Casper Farrell MD - 02/22/2018 9:22 AM Austen Bean CNP - 02/21/2018 3:56 PM EDT H&P Notes (unrecognized sect ion and content) INTERVAL HISTORY AND PHYSICAL Patient Name: Nette Bryan Manish May. Admit Date: [id number] MR #: [id number] : 1940 The H&P has been reviewed and the patient has been examined. I concur with the findings of the H&P. There are no significant changes. It is appropriate to proceed with the planned procedure. Sedation Plan: Deep ASA Classification: 3 - Patient with severe systemic disease Mallampati Score: Not applicable Casper Bustos MD 02/22/2018 9:22 AM Formatting of this note may be different from the original. Structural Heart Evaulation Patient Name: Nette Hammond Sr. MR #: [id number] : 1940 Physicians: Cedric Carr MD (Family); No ref. provider found (Referring) Perpetual Assessment: Nette Hammond Sr. is a 77 y.o. male with a past medical history significant for paroxysmal atrial fibrillation, hypertension, hyperlipidemia and bilateral subdural hematomas s/p burrhole drainage/Left craniotomy in 2016 at [facility] who presented to the structural heart clinic from home for WATCHMAN PAT. Assessment and Plan: Assessment & Plan: Paroxysmal atrial fibrillation: Nette Hammond Sr. is a 77 y.o. male with a history of atrial fibrillation who presented to the [facility] to complete preadmission testing for left atrial appendage closure with WATCHMAN. - Rationale for inability to take long-term anticoagulation: history of bilateral subdural hematomas in 2016 - Recommendation regarding ability to tolerate Anticoagulation 45 days post WATCHMAN Implant: Patient has gotten the ok from his neurosurgeon for short term use of Eliquis - Current Anticoagulation: completed 23 days of AC but has stop in preporation for planned WATCHMAN 02/22/2018 - Completed Shared Decision Making Interaction with Patient regarding R/B/A of AC: Completed - Shared decision making interaction with independent non-interventional physician: Dr. Thomson - Usp anticoagulation is indicated as evidenced by a [id number] score of 3. - Increased risk for bleeding as evidenced by a HAS-BLED score of 3 - Discussed R/B/A of left atrial appendage closure with WATCHMAN as an alternative to alf anticoagulation. - Patient prefers general anesthesia Watchman implant is recommended to be followed by OAC/ASA 81mg for +/-45 days. If follow up RAYMOND has no/minimal device leak, to be transitioned to DAPT with clopidogrel 75mg/ASA 81 mg, to continue for a total of 6 months from the original implant date. Aspirin 81 mg will continue indefinitely. Atrial fibrillation disease process and left atrial appendage closure with WATCHMAN risks/benefits/alternatives including standard pre and postop care discussed with the patient and his son Meño at length. All questions asked and answered. This procedure will be performed in a facility that offers a hybrid laboratory with fluoroscopy capability, dedicated echocardiography support, anesthesiology support, post anesthesia recovery, emergency cardiac services, and intensive care and step down unit capability. Procedure will be performed by physicians that have received the recommended resin mixer training and have met the minimum qualifications and procedural experience as recommended. The patient will be enrolled in, and the treatment team will be participating in a prospective national registry that will track annual outcomes at the patient data level for a period of at least 4 years from the time of the LAAC procedure. Chief Complaint/Reason for Visit: Evaluation for Left Atrial Appendage Closure with WATCHMAN History of Present Illness: Nette Hammond is a 77 y.o. male with a past medical history significant for paroxysmal atrial fibrillation, hypertension, hyperlipidemia and bilateral subdural hematomas s/p burrhole drainage in 2015 at [facility] who presented to the structural heart clinic from home for WATCHMAN evaluation. History obtained per patient and his son. The patient reported a longstanding history of atrial fibrillation and previously followed with Dr. Olivas (EP) at [facility]. He underwent successful cardioversion in 2011 and was on Coumadin until 12/2015 when he sustained spontaneous bilateral subdural hematomas. No traumatic injury per patient but he was doing some renovations on a house in the 90 degree heat lifting heavy items per son. He was admitted to [facility] at that time and underwent bilateral burrhole drainage per Dr. Joshi (neurosurgery). He had recurrent bleeding 03/2016 and was again hospitalized and underwent Left frontal craniotomy and drainage of subdural hematoma with drain placement. Pt reports that he has followed up with his neurosurgeon in [place] and he has been given the go ahead to resume Eliquis for this procedure. He was referred per his primary web content producer (Dr. Thomson) to the structural heart clinic for Watchman evaluation. At baseline, the patient lives in a home with his and is the primary caregiver for his 54 year old son who is developmentally disabled. He is very active, denied any falls, does not use any assistive devices for ambulation. He has no known history of CAD, denied any chest pain or dyspnea. His most recent TTE was in 2009 and we discussed the need for a repeat TTE, clearance from neurosurgery to be able to take Eliquis for 21 days prior to Watchman and 45 days after followed by Plavix x 4 months and ASA indefinitely. No reported history of GI bleeding. Nette Hammond Sr. denies any previous history of previous left atrial appendage intervention, cardiac structural intervention, COPD, CA, or MARGRET. Increased Risk of Falls: yes Cardiac Testing: needs repeat TTE Baseline ECG: pending Non-Valvular Atrial Fibrillation: yes Atrial Fibrillation Classification: Paroxsymal (terminating spontaneously w/in 7 days) Attempt and type of Atrial Fibrillation Termination: cardioversion in [address] Olivas Atrial Flutter Classification: Attempt and type of Atrial Flutter Termination: If CHF, NYHA Classification: STROKE AND BLEEDING RISK SCORING SYSTEMS [id number] THOMAS-BLED score RISK FACTOR SCORE PRESENT RISK FACTOR SCORE PRESENT C Congestive Heart Failure 1 no H Hypertension (uncontrolled) 1 no H Hypertension 1 yes A Abnormal liver function 1 no A Age 65-74 1 no A Abnormal renal function 1 no A2 Age >75 2 yes S Stroke 1 yes D Diabetes mellitus 1 no B Bleeding 1 yes S2 Prior stroke or TIA 2 no L Labile INR 1 no VA Vascular disease (previous 1 E Elderly 1 yes NM, arterial disease or no D Drugs 1 no aortic plaque) D Alcohol 1 no Sc Sex category - female sex 1 no Score 3 Score 3 History: Past Medical History: Diagnosis Date A-fib (HCC) Arrhythmia CVA (cerebral vascular accident) (HCC) 12/2015, 03/2016 History of cardioversion 2011 Hyperlipidemia Hypertension Subdural hematoma (HCC) 12/2015, 03/2016 Past Surgical History: Procedure Laterality Date CHOLECYSTECTOMY HERNIA REPAIR 1989 PROSTATE SURGERY ROTATOR CUFF REPAIR 2013 Family History Problem Relation Age of Onset Mental retardation Son No Known Problems Mother Cancer Father Social History Social History Marital status: Spouse name: N/A Number of children: N/A Years of education: N/A Occupational History Not on file. Social History Main Topics Smoking status: Former Smoker Quit date: 06/12/1974 Smokeless tobacco: Never Used Alcohol use No Drug use: No Sexual activity: Not on file Other Topics Concern Not on file Social History Narrative No narrative on file Allergy Information: I have reviewed the patient's allergies. Sulfa (sulfonamide antibiotics) Home Medications: Outpatient Prescriptions as of 02/21/2018 Medication Sig apixaban (ELIQUIS) 5 mg Tab Take 1 (one) tablet (5 mg total) by mouth 2 (two) times a day Take 5 mg PO BID for 21 days. atorvastatin (LIPITOR) 10 MG tablet Take 10 mg by mouth daily. cholecalciferol, vitamin D3, (VITAMIN D3) 1,000 unit capsule Take 2,000 Units by mouth daily. citalopram (CELEXA) 10 MG tablet Take 10 mg by mouth daily. fenofibrate (TRICOR) 48 MG tablet Take 48 mg by mouth daily Give with food . flecainide (TAMBOCOR) 100 MG tablet Take 100 mg by mouth 2 (two) times a day. hydroCHLOROthiazide (MICROZIDE) 12.5 mg capsule Take 25 mg by mouth daily . lisinopril (PRINIVIL,ZESTRIL) 20 MG tablet Take 40 mg by mouth daily . multivitamin (multivitamin) per tablet Take 1 tablet by mouth daily. Patient's Medications New Prescriptions No medications on file Previous Medications APIXABAN (ELIQUIS) 5 MG TAB Take 1 (one) tablet (5 mg total) by mouth 2 (two) times a day Take 5 mg PO BID for 21 days. ATORVASTATIN (LIPITOR) 10 MG TABLET Take 10 mg by mouth daily. CHOLECALCIFEROL, VITAMIN D3, (VITAMIN D3) 1,000 UNIT CAPSULE Take 2,000 Units by mouth daily. CITALOPRAM (CELEXA) 10 MG TABLET Take 10 mg by mouth daily. FENOFIBRATE (TRICOR) 48 MG TABLET Take 48 mg by mouth daily Give with food . FLECAINIDE (TAMBOCOR) 100 MG TABLET Take 100 mg by mouth 2 (two) times a day. HYDROCHLOROTHIAZIDE (MICROZIDE) 12.5 MG CAPSULE Take 25 mg by mouth daily . LISINOPRIL (PRINIVIL,ZESTRIL) 20 MG TABLET Take 40 mg by mouth daily . MULTIVITAMIN (MULTIVITAMIN) PER TABLET Take 1 tablet by mouth daily. Modified Medications No medications on file Discontinued Medications No medications on file Review of Systems: Constitutional: denied fatigue, denies changes in weight Skin: Denies concerns Eyes: Denies acute vision changes CV: denied chest pain or palpitations Resp: Denies dyspnea or cough GI: denied hematochezia, melena, abdominal bloating : Denies hemarturia or urinary symptoms MSK: Denies acute MSK pain Neuro: Denies acute neuro defecits Endo: Denies heat or cold intolerance Psych: No acute concerns Physical Examination: Vital Signs: BP (!) 158/90 Pulse (!) 48 Temp 97.7 ?F (36.5 ?C) (Oral) Resp 16 Wt 71.2 kg (157 lb) SpO2 99% BMI 23.87 kg/m General: No acute distress. Alert and cooperative. Appears stated age Head: Normocephalic, without obvious abnormality, atraumatic Neck: Supple, symmetrical, trachea midline,no carotid bruits or JVD Respiratory: Clear to auscultation bilaterally without wheezes, rhonchi, or crackles. No accessory muscle use or distress noted. Cardiovascular: Regular rhno murmurs, rubs, gallops noted. Abdomen: Soft, non-tender, nondistended Extremities: No cyanosis no peripheral edema Skin: Skin color, texture, turgor normal, no rashes or lesions Musculoskeletal: Full range of motion of all extremities; no joint edema Neurologic: Alert and oriented x 3, non focal exam Psych: Pleasant/cooperative with assessment with appropriate mood and affect. Nette Jeff, MS, MUSEUM TECHNICIAN-FACT CHECKER Structural Heart Nurse Practitioner [facility]: in this encounter Assessment & Plan Note - Talisha Bush CNP - 04/06/2018 10:16 AM EDTAssessment & Plan Note - Talisha Bush CNP - 04/06/2018 10:16 AM EDT Miscellaneous Notes (unrecog nized section and content) Associated Problem(s): MENDEZ (acute kidney injury) (HCC) BUN/Cr 28/1.5 on 03/26/18 - Per record review, baseline Cr ~1.2-1.3 - Patient denies history of CKD - Discussed recent BMP results; patient agreeable to repeat BMP during visit 04/06/18, results will be forwarded to his PCP for further Associated Problem(s): PAF (paroxysmal atrial fibrillation) (HCC) Per history with [id number] score of 3 and HAS-BLED score of 3 - S/p LAAO with WATCHMAN on 02/22/18 under general anesthesia - Limited TTE 02/22/18 showed EF 60-65% with no evidence of pericardial effusion - Eliquis continued post WATCHMAN; Aspirin therapy was not started at time of WATCHMAN per Dr. Dao recommendations - Hgb 13.7 on 03/26/18 and stable - RAYMOND 04/06/18 pending; if no/minimal device leak, to be transitioned to DAPT with Clopidogrel 75 mg and Aspirin 81 mg, to continue for a total of 6 months from the original implant date (08/22/18). Aspirin 81 mg will continue indefinitely.in this encounter INTERVAL HISTORY AND PHYSICAL Patient Name: Nette Hammond Admit Date: 04/06/2018 MR #: [id number] : 1940 The H&P has been reviewed and the patient has been examined. I concur with the findings of the H&P. There are no significant changes. It is appropriate to proceed with the planned procedure. ASA Physical Classification: See RAYMOND Final Report. See RAYMOND Procedure Report for results of today's transesophageal echocardiogram. I discussed the risks and benefits of a transesophageal echo with the patient and available family. Specifically, I reviewed the risks of (not limited to) vomiting with aspiration pneumonia, bleeding, infection esophageal injury/perforation (0.1%) requiring surgical repair, requiring a feeding tube, un-named complications. Knowing these risks, and that other options were available, including doing nothing, the patient chose to undergo the procedure. All questions were satisfactorily addressed prior to signing the consent form. Joey Fischer MD 04/06/18 11:25 AM in this encounter Reason for Visit (unrecogniz ed section and content) Reason Comments Heart Problem 1 year s/p Watchman Care Teams (unrecognized sec tion and content) Director Of Casework Department Relationship Specialty Start Date End Date Cedric Carr MD [address] [address] PCP - General Family Medicine 10/18/22 Cedric Carr MD [address] [place] [address] PCP - ACO Reach 03/11/23 Director Of Casework Department Relationship Specialty Start Date End Date Cedric Carr MD [address] [place] [address] PCP - General Family Medicine 10/18/22 Cedric Carr MD [address] [place] [address] PCP - ACO Reach 03/11/23 FOR RECORDS PERTAINING TO PATIENTS WHO ARE OR HAVE BEEN ENROLLED IN A CHEMICAL DEPENDENCY/SUBSTANCEABUSE PROGRAM, SOME INFORMATION MAY BE OMITTED. This clinical summary was aggregated from multiple sources. Caution should be exercised in using it in the provision of clinical care. This summary normalizes information from multiple sources, and as a consequence, information in this document may materially change the coding, format and clinical context of patient data. In addition, data may be omitted in some cases. CLINICAL DECISIONS SHOULD BE BASED ON THE PRIMARY CLINICAL RECORDS. [employer] provides no warranty or guarantee of the accuracy or completeness of information in this document.
[2023-08-23 20:06] VITALS: BMI 23.3
[2023-08-23] MEDS: 0.9 % SODIUM CHLORIDE 1,000 ML 100 ML IV (20:32)
[2023-08-24 04:30] VITALS: BP 158/90; PULSE 79; RESP 16; TEMP 36.3; O2SAT 92
[2023-08-24 04:54] LABS: Basophils Absolute Auto 0.1 10^3/uL (0.0-0.1); Basophils Percent Auto 0.7 % (0.2-2.0); Eosinophils Absolute Auto 0.4 10^3/uL (0.0-0.7); Hematocrit 37.8 % (42.0-54.0); Hemoglobin 12.2 g/dL (14.0-18.0); Immature Granulocytes Abs Auto 0.11 10^3/uL (0.00-0.03); Immature Granulocytes Pct Auto 1.5 % (0.0-0.5); Lymphocytes Absolute Auto 2.1 10^3/uL (1.2-3.8); Lymphocytes Percent Auto 28.6 % (20.5-60.0); Mean Corpuscular HGB Conc 32.3 g/dL (29.9-35.2); Mean Corpuscular Hemoglobin 29.5 pg (25.9-34.0); Mean Corpuscular Volume 91.5 fL (80.0-94.0); Mean Platelet Volume 8.5 fL (9.5-13.5); Monocytes Absolute Auto 0.5 10^3/uL (0.3-0.8); Monocytes Percent Auto 6.9 % (1.7-12.0); Neutrophils Absolute Auto 4.1 10^3/uL (1.4-6.5); Neutrophils Percent Auto 57.3 % (43.0-75.0); Platelet Count 286 10^3/uL (150-450); Red Blood Count 4.13 10^6/uL (4.70-6.10); Red Cell Distribution Width 12.9 % (11.0-15.0); White Blood Count 7.2 10^3/uL (4.0-11.0)
[2023-08-24 05:15] LABS: Chol HDL Ratio 5.3; Cholesterol 148 mg/dL (<=200); HDL Cholesterol 28 mg/dL (40-60); Triglycerides 99 mg/dL (<=150); VLDL CHOLESTEROL 19.8 mg/dL
[2023-08-24 05:16] LABS: Alanine Aminotransferase 13 U/L (16-63); Albumin Globulin Ratio 0.5; Albumin Level 1.8 g/dL (3.4-5.0); Alkaline Phosphatase 63 U/L (46-116); Anion Gap 10.4; Aspartate Amino Transferase 20 U/L (15-37); BUN Creatinine Ratio 13.8; Bilirubin Total 0.6 mg/dL (0.2-1.0); Calcium 8.4 mg/dL (8.5-10.1); Carbon Dioxide 28.8 mmol/L (21.0-32.0); Chloride 102 mmol/L (98-107); Estimated GFR (African America >60 (>=60); Estimated GFR (Non-African Ame >60 (>=60); Globulin 3.6 g/dL; Glucose 68 mg/dL (74-106); Potassium 4.2 mmol/L (3.5-5.1); Sodium 137 mmol/L (136-145); Total Protein 5.4 g/dL (6.4-8.2)
--- NOTE | 2023-08-24 05:53 | PC.NURSE ---
pt glucose was 68 with morning labs. RN gave him Cheese and peanut butter crackers and orange juice to snack on before breakfast. Pt denies any needs at this time.
[2023-08-24] MEDS: 0.9 % SODIUM CHLORIDE 1,000 ML 100 ML IV ×2 (06:15→16:14)
[2023-08-24 08:23] VITALS: PULSE 97
--- NOTE | 2023-08-24 09:47 | SWNOTE1 ---
RAMONA met with pt to discuss dc needs. Pt usually lives at home with , but she is at [facility]. He voices she does have some dementia and he is not sure how she is doing right now. Pt states they do have children in the area that help as needed as well. SW spoke to him about the need for a walker and home health. Pt voices he has a walker at home that was his sons, his son . SW asked if walker was in good shape and had wheels. Pt voiced it was similar to walker he used with therapy. SW asked if pt would like SW to get him a new one through his medicare or use the one he has at home. Pt stated he will use the one he has at home. RAMONA asked pt about HH. Pt is agreeable. RAMONA reviewed list from medicare.gov with pt. Pt does not have a preference. RAMONA sent referral to [address]
[2023-08-24 10:00] VITALS: PULSE 90
--- NOTE | 2023-08-24 10:01 | P.HP_ITS ---
HPI H&P: HPI History of Present Illness Chief complaint: POSS UTI LEVEL BLOOD COUNT, General Weakness Narrative: HPI and hospital course: 83-year-old male was brought to Emergency Room last evening for generalized weakness. His workup in the Emergency Room was unremarkable with no significant hematological or metabolic abnormality noted patient was admitted overnight for observation. He was given IV fluids and physical therapy/occupational therapy worked with him. He was noted to be unsteady on his feet and will require a walker to improve his balance and reduce the risk of fall. Upon interview, patient reports that he has had a progressive decline in functional status over the past couple of weeks with some good days in between. He denies nausea, vomiting, abdominal pain, urinary complaints. Denies cough, shortness of breath, chest pain, fever. He reports adequate by mouth intake. Lives with his and generally does not require any assistance with ambulation. He denies any recent falls or head trauma. According to ED report, his son was concerned about a possible UTI. His UA does not seem c/w UTI, evelin in the absence of any urinary symptoms. Patient's son was also concerned about her overall poor PO intake. Opioid HPI Opioid Management Most Recent Opioid Data: Last Pain Assessment 08/24/23 09:20 Last ORT Total Score 0 08/23/23 20:06 Last ORT Risk Category Low Risk 08/23/23 20:06 Review of Systems ROS Status of ROS 10 or more systems reviewed and unremark able except as noted in history and below [facility] Medical History (Updated 08/24/23 @ 10:18 by Shaikh Stevo MD) Myocardial infarct ?I21.9 - Acute myocardial infarction, unspecified (ICD-10) Hypertension ?I10 - Essential (primary) hypertension (ICD-10) Brain bleed ?I61.9 - Nontraumatic intracerebral hemorrhage, unspecified (ICD-10) Presence of Watchman left atrial appendage closure device ?Z95.818 - Presence of other cardiac implants and grafts (ICD-10) A-fib ?I48.91 - Unspecified atrial fibrillation (ICD-10) Prostate cancer ?C61 - Malignant neoplasm of prostate (ICD-10) Family History (Updated 08/23/23 @ 20:04 by Yelena Lechuga RN) Other Family history of cancer Social History (Updated 08/23/23 @ 20:06 by Yelena Lechuga RN) Within the past year, how often did you have a drink containing alcohol: never Within the past year, how many standard drinks containing alcohol did you have on a typical day: 1 or 2 Within the past year, how often did you have six or more drinks on one occasion: never Total score: 0 Score interpretation: A score less than 4 is consistent with normal alcohol consumption. Smoking status: Former smoker Non-prescribed substance use: denies use Highest level of school completed/degree received: some college, no degree Gender Identity: female Meds Home Medications and Allergies Home Medications Medication Instructions Recorded Confirmed Type alprazolam 1 mg tablet,extended 1 mg PO QAM 08/16/23 08/24/23 History release 24 hr aspirin 81 mg tablet,delayed 81 mg PO DAILY 08/16/23 08/23/23 History release donepezil 10 mg tablet 20 mg PO .QHS 08/16/23 08/24/23 History escitalopram oxalate 10 mg tablet 10 mg PO .QHS 08/16/23 08/24/23 History aripiprazole 5 mg tablet 2.5 mg PO .QHS 08/23/23 08/24/23 History Allergies Allergy/AdvReac Type Severity Reaction Status Date / Time Sulfa (Sulfonamide Allergy Mild Verified 08/23/23 17:03 Antibiotics) Exam Constitutional Vital Signs, click to edit/add: Last Vital Signs Temp 97.4 F L 08/24/23 04:30 Pulse 90 08/24/23 10:00 Resp 16 08/24/23 04:30 BP 158/90 H 08/24/23 04:30 Pulse Ox 92 L 08/24/23 04:30 O2 Del Method Room Air 08/24/23 04:30 Documenting provider has reviewed patient's vital signs: yes Common normals: no apparent distress and oriented x3 General appearance: cooperative Respiratory Common normals: normal respiratory effort and clear to auscultation bilaterally Effort & inspection: able to speak in complete sentences Auscultation: clear to auscultation bilaterally Cardio Common normals: regular rate, S1 normal heart sound and S2 normal heart sound Rate: regular rate Heart sounds: S1 normal and S2 normal Extremity Common normals: no clubbing, cyanosis or edema Neuro Common normals: oriented x3, moves all extremities and no focal motor deficits Other: Shuffles, unsteady on ambulation, will require a walker. Psych Common normals: mental status grossly normal, denies hallucinations, denies homicidal ideation and denies suicidal ideation Results Labs Labs: Short CBC 08/23/23 08/24/23 Range/Units 17:35 04:33 WBC 7.8 7.2 (4.0-11.0) 10^3/uL Hgb 13.4 L 12.2 L (14.0-18.0) g/dL Hct 41.4 L 37.8 L (42.0-54.0) % Plt Count 318 286 (150-450) 10^3/uL BMP 08/23/23 08/24/23 17:35 04:33 Sodium 137 137 Potassium 4.1 4.2 Chloride 100 102 Carbon Dioxide 30.8 28.8 BUN 15.0 13.0 Creatinine 1.14 0.94 Glucose 87 68 L Calcium 8.9 8.4 L Liver Function 08/24/23 Range/Units 04:33 Total Bilirubin 0.6 (0.2-1.0) mg/dL AST 20 (15-37) U/L ALT 13 L (16-63) U/L Alkaline Phosphatase 63 (46-116) U/L Albumin 1.8 L (3.4-5.0) g/dL Urine 08/23/23 Range/Units 17:56 Urine Color Yellow (YELLOW) Urine Clarity Clear (CLEAR) Urine pH 6.0 (5.0-9.0) Ur Specific Fox 1.020 (1.005-1.025) Urine Protein 100 A (NEG/TRACE) mg/dL Urine Glucose (UA) Negative (NEGATIVE) mg/dL Assessment and Plan Assessment and Plan (1) Generalized weakness: Assessment and Plan: Generalized weakness. no reversible metabolic/infectious etiology on initial w/u Feeling better from yesterday. PT/OT eval. Patient will need a walker to ambulate. Stable for d/c. Follow up with PCP (2) Hypertension: Assessment and Plan: Not on any medication. Given his age, frailty, his BP even though elevated, is reasonable Will defer to PCP Qualifiers: Hypertension type: primary hypertension Qualified Code(s): I10 - Essential (primary) hypertension (3) A-fib: Assessment and Plan: HR controlled, NSR, no AC due to watchman device Qualifiers: Atrial fibrillation type: paroxysmal Qualified Code(s): I48.0 - Paroxysmal atrial fibrillation (4) Presence of Watchman left atrial appendage closure device: Assessment and Plan: He had watchman for stroke px, due to hx of Afib (5) Abnormal CT scan, head: Assessment and Plan: Small area of possible punctuate hemorrhaege on CT noted on initial CT- repeat CT - likely an artifact. Plan Stable for d/c with home health, with walker. Urinary Catheter Management Urinary Catheter Management Urethral: Cath placed during this visit: yes Urethral indwelling: Yes Reason for continuing: decision to DC catheter Insertion date: 08/23/23 Insertion time: 18:00
--- NOTE | 2023-08-24 10:22 | CM.NOTE ---
Rounds made with Dr. Whiteside, pt will discharge to home today. Pt will need home walker for safety and SW will talk with pt and family regarding HH services or discharge plan.
--- NOTE | 2023-08-24 10:35 | SWNOTE1 ---
RAMONA spoke to pt's son Meño, who voices he is the POA. We do not have documentation of this in chart, SW requested her brings this in. Meño also voices he is a DNRCC, which we have pt as a full code. RAMONA requested family bring this in as well. Meño voiced someone will bring in this afternoon. RAMONA informed Meño that pt was going to be discharged today with home health. Meño voiced pt was at Dr. Rodriguez's office on Monday and they were under the impression to bring pt to hospital and have medicare 3 day stay and then pt will be discharged to rehab. Family also thought Dr. Rodriguez would be seeing pt at hospital.SW let him know that hospitalist has seen pt and Dr. Rodriguez does not come to facililty. RAMONA explained to Meño that pt is in observation status right now and does not have a medical diagnosis to be made inpt. In order for medicare to pay for rehab stay at a facility, pt requires 3 day inpt stay. 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 He voiced many people have minimal medical issues and stay in hospital for 3 days, then go to rehab. RAMONA stated at this time pt is in observation status. Meño did ask medical questions and SW let him know that SW can have doctor call and speak with him. Pt's is at [facility] in dementia unit. They wanted pt to go to rehab and then possibly transition to termite control representative if needed. RAMONA asked if private pay termite control representative was an option. He did state they have the funds, but more looking at rehab first. Meño stated pt has had several falls in last week and he is a failure to thrive and is not safe to be at home alone. At this time RAMONA advised Meño that doctor will be calling and reviewing medical aspect of pt's stay. RAMONA did review [place] form with pt's son, Meño, he did voice understanding and will have family bring in medications. No further questions at this time. RAMONA signed CARLTON form and placed on chart and original placed in room.
--- NOTE | 2023-08-24 11:26 | CA_ITS ---
Patient Name: NETTE CAO MR#: [id number] : 1940 Exam Date: 08/24/2023 Ordering Doctor: Shaikh Kayla Whiteside . ECHOCARDIOGRAM REPORT PROCEDURE: CA ECHO DOPPLER COMPLETE INDICATIONS: syncope, Hx: Afib COMPARISON: None. DESCRIPTION: COMPLETE ECHOCARDIOGRAM Real-time transthoracic echocardiography with 2D, M-mode, spectral and color flow Doppler performed. QUALITY: Technical quality was good. LEFT VENTRICLE: Normal chamber size. Thickened septal wall. LV EF: Global left ventricular systolic function is normal. Visual estimation of left ventricular ejection fraction is 55-60% DIASTOLIC: Not adequately assessed due to heart rhythm. ATRIAL SEPTUM: Inadequately seen. LEFT ATRIUM: Severe dilatation. RIGHT ATRIUM: Severe dilatation. RIGHT VENTRICLE: Moderate dilatation. Decreased right ventricular systolic function. TRICUSPID VALVE: Normal mobility and thickness. No stenosis with mild to moderate regurgitation. Mild pulmonary hypertension. RVSP 37mmHg MITRAL VALVE: Normal mobility and thickness. No evidence of mitral valve stenosis. There is no mitral annular calcification. Moderate mitral regurgitation. AORTIC VALVE: Normal trileaflet appearance. Mildly calcified aortic valve. Normal leaflet mobility. No evidence of aortic valve stenosis. No aortic regurgitation. AORTIC ROOT: Normal diameter and appearance. PULMONIC VALVE: Normal thickness and mobility. No stenosis. Mild regurgitation. PERICARDIUM: No evidence of pericardial effusion. IVC: Collapses with inspirations. Normal size. CONCLUSION: 1. Global left ventricular systolic function is normal; visually estimated ejection fraction is 55 to 60% 2. The right ventricle is moderately dilated with reduced systolic function 3. Severe biatrial enlargement 4. Mild to moderate tricuspid regurgitation 5. Mildly elevated right ventricular systolic pressure; RVSP 37 mmHg 6. Moderate mitral regurgitation 7. Mild pulmonic regurgitation Adult Echocardiography Procedure Report Left Ventricle LVEDD (3.7 - 5.6 cm): 4.45 cm LVESD (2.2 - 4.0 cm): 3.12 cm LVIVS thickness (0.6 - 1.2 cm): 1.49 cm LVPW thickness (0.5 - 1.0 cm): 0.78 cm e': 0.16 m/s E - e': 3.59 LVOT Max Gradient: 1.06 mm[Hg], 1.11 mm[Hg] LVOT Area (cm2): 0.52 m/s Peak Velocity (LVOT): 0.51 m/s, 0.53 m/s Mean Velocity (LVOT): 0.33 m/s LVOT Diameter 2.30 cm Left Ventricular Ejection Fraction: 57.54 % Left Atrium LA Volume Index (2D A2C): 55.53 ml/m2 Left Atrium Systolic Dimension: 3.90 cm Mitral Valve Mitral Valve E-Wave Peak Velocity: 0.59 m/s Right Ventricle RV Internal Diastolic Dimension: 4.82 cm Aorta AO Root Diam: 3.31 cm Ascending Ao Diam: 3.02 cm Aortic Valve AoV Area (Peak Finn): 2.51 cm2, 2.48 cm2 AoV Area (VTI): 2.76 cm2, 2.68 cm2 Peak Velocity(Antegrade Flow): 0.86 m/s Peak Gradient(Antegrade Flow): 2.99 mm[Hg] Mean Velocity(Antegrade Flow): 0.61 m/s Mean Gradient(Antegrade Flow): 1.71 mm[Hg] Velocity Time Integral: 17.08 cm Tricuspid Valve Peak Velocity (Regurgitant Flow): 2.79 m/s, 2.74 m/s, 2.89 m/s, 2.77 m/s Pulmonic Valve Mean Gradient: 0.66 mm[Hg], 0.74 mm[Hg] Mean Velocity: 0.38 m/s, 0.41 m/s Peak Velocity: 0.60 m/s, 0.47 m/s Peak Gradient: 1.47 mm[Hg], 1.37 mm[Hg], 0.87 mm[Hg] Right Atrium Right Atrium Systolic Pressure: 122.78 ml, 122.78 ml Dictated by: Nadir Jones M.D. on 08/25/2023 at 13:07 Approved by: Nadir Jones M.D. on 08/25/2023 at 13:13
[2023-08-24 11:54] VITALS: PULSE 76
--- NOTE | 2023-08-24 12:20 | SWNOTE1 ---
Pt is staying one more night in observation status. RAMONA called and spoke with Meño to discuss dc plans for tomorrow. RAMONA reviewed what services would come in for home health, which would be PT/OT and skilled nurse, SW offered to try and get a home health aide as well. Meño voiced he thinks they are going to look in to [facility] for assisted, respit, or paying out of pocket for therapy. He is going to discuss with his siblings and then will return call. RAMONA let him know that SW will call over to [facility] once family has decided to make sure they have a bed and if they need clinical information. He voiced someone in the family works at [facility] and they will have a bed. SW to wait for call back from Meño before reaching out to [facility].
[2023-08-24 13:43] VITALS: BP 158/98; PULSE 65; RESP 16; TEMP 36.4; O2SAT 90
--- NOTE | 2023-08-24 15:05 | SWNOTE1 ---
RAMONA called and spoke with Meño. He did voice he spoke with the rest of the family and they are going to pursue patient going to [facility] where pt's is at. They have a brother in law that works for a branch of [facility]. They are looking at doing a respit stay to start and then it would likely transition in to retirement. RAMONA asked permission to call [facility] and make sure there is a bed available and see if they would like any clinical information. Meño gave permission. RAMONA to speak with patient as well. RAMONA called over and left message for Halina in admissions.
--- NOTE | 2023-08-24 15:13 | SWNOTE1 ---
RAMONA called Luzma director china at [facility] and she is going to call admissions and see if they are aware of this patient and call RAMONA back.
--- NOTE | 2023-08-24 15:25 | SWNOTE1 ---
Addendum entered by Dipti Garcia 08/24/23 15:50: That information was sent to [facility] in [place]. Original Note: SW went in to speak to patient. SW spoke with him about his being at [facility] and getting pt to facility tomorrow. SW did ask pt if he knew where he was, he voiced he was at home. SW advised pt he was at hospital. Pt asked if his daughter was here, SW let him know she was not. SW asked if he knew what the month was or day, pt did not. SW let him know it was August and it was . SW asked again if he knew where he was. Pt voiced he did not know, SW again re-assure pt he was at hospital and he was safe and we were making sure everything was alright pt medically. Pt voiced frustrations about not knowing and was worried about his . SW assured him that his was being taken care of at [facility] and that the plan is for him to go over there tomorrow. He voiced understanding and thanked RAMONA and voiced he does not need anything right now. RAMONA showed pt where the nurse button was and assured pt again he was at hospital. RAMONA updated nursing and doctor of pt's confusion.
--- NOTE | 2023-08-24 15:47 | SWNOTE1 ---
RAMONA spoke with Halina in admissions. She is familiar with pt and spoke with Meño's brother in law who works for [facility]. They are able to take pt but wanted to make sure Meño was aware he was not coming under his medicare part A as he does not have 3 day stay. RAMONA let Halina know that RAMONA has spoke to Meño about this, but Halina can always call Meño and let him know as well. Plan is for them to take pt tomorrow as respit stay and get him some therapy under his medicare part B. Halina would like clinical information sent over. RAMONA faxed over face sheet, ED note, H&P, case management report, PT/OT, nursing notes, diagnostic imaging, and med list.
--- NOTE | 2023-08-24 18:39 | CT_ITS ---
The [address] [address] Patient Name: NETTE CAO MRN: [id number] date: 1940 Sex: M Assigned Patient Location: [place] Current Patient Location: [place] Accession/Order Number: [id number] Exam Date: 08/24/2023 06:10 Report Date: 08/24/2023 06:37 At the request of: KILEY STACY Procedure: CT head/brain wo con EXAMINATION: CT head/brain wo con HISTORY: Punctate hyperdensity L Occipital lobe on ER CT COMPARISON: No relevant comparison available. TECHNIQUE: Axial CT images were obtained without IV contrast. Dose reduction techniques were achieved by using automated exposure control and/or adjustment of mA and/or kV according to patient size and/or use of iterative reconstruction technique. FINDINGS: BRAIN: No edema, hemorrhage, mass, acute infarction, or inappropriate atrophy. CSF SPACES: No hydrocephalus, subarachnoid hemorrhage, or mass. Appropriate for age. SKULL: Multiple stefani holes. No fracture. SINUSES: No significant mucosal thickening or fluid on the limited views. ORBITS: No appreciable abnormality on the limited views. OTHER: Negative CT/CT head/brain wo con IMPRESSION: 1. No intracranial hemorrhage or appreciable acute abnormality. Hyperdensity within posterior left occipital lobe seen on yesterday's study is felt to have represented a focal area of beam hardening artifact from the skull. 2. Age consistent atrophy and chronic small vessel ischemic changes. Electronically authenticated by: BOY ADAME Date: 08/24/2023 06:37
[2023-08-24 20:17] VITALS: BP 150/90; PULSE 78; RESP 16; TEMP 36.5; O2SAT 93
[2023-08-24] MEDS: ENSURE CLEAR 237 ML LIQUID PO (21:28)
[2023-08-24] MEDS: ESCITALOPRAM 10 MG TABLET PO (21:28)
[2023-08-24] MEDS: DONEPEZIL HCL 10 MG TABLET 20 MG PO (21:28)
[2023-08-24] MEDS: ARIPIPRAZOLE 5 MG TABLET 2.5 MG PO (21:28)
--- NOTE | 2023-08-24 22:27 | PC.NURSE ---
pt yelling out for Nelda. RN went into room to assist. Pt stated he could not figure out how to work the TV remote and that he needed to go upstairs to bed. When the RN asked him where he was at he stated his home address. Once the patient was re-oriented he apologized for the confusion and stated he has had a bad day today.
--- NOTE | 2023-08-25 00:55 | PC.NURSE ---
pt bed alarm went off. RNs in room to assist. Pt was found standing at the foot of his bed. When the patient was asked where he was going, he told me he was looking for his . RN asked pt where he was and he said, well I guess I'm at the hospital now. pt assisted back to bed with call light in reach and bed alarm on. Pt denies needs at this time.
[2023-08-25] MEDS: 0.9 % SODIUM CHLORIDE 1,000 ML 100 ML IV (02:05)
[2023-08-25 04:23] VITALS: BP 153/90; PULSE 77; RESP 16; TEMP 36.4; O2SAT 92
[2023-08-25 04:56] LABS: Basophils Percent Auto 0.6 % (0.2-2.0); Eosinophils Absolute Auto 0.3 10^3/uL (0.0-0.7); Eosinophils Percent Auto 3.6 % (0.9-7.0); Hematocrit 36.9 % (42.0-54.0); Immature Granulocytes Abs Auto 0.16 10^3/uL (0.00-0.03); Immature Granulocytes Pct Auto 2.3 % (0.0-0.5); Lymphocytes Absolute Auto 1.9 10^3/uL (1.2-3.8); Lymphocytes Percent Auto 26.6 % (20.5-60.0); Mean Corpuscular HGB Conc 32.5 g/dL (29.9-35.2); Mean Corpuscular Hemoglobin 29.7 pg (25.9-34.0); Mean Corpuscular Volume 91.3 fL (80.0-94.0); Mean Platelet Volume 8.5 fL (9.5-13.5); Monocytes Absolute Auto 0.4 10^3/uL (0.3-0.8); Monocytes Percent Auto 6.3 % (1.7-12.0); Neutrophils Absolute Auto 4.3 10^3/uL (1.4-6.5); Neutrophils Percent Auto 60.6 % (43.0-75.0); Platelet Count 286 10^3/uL (150-450); Red Blood Count 4.04 10^6/uL (4.70-6.10); Red Cell Distribution Width 12.9 % (11.0-15.0)
[2023-08-25 05:30] LABS: Alanine Aminotransferase 12 U/L (16-63); Albumin Globulin Ratio 0.5; Albumin Level 1.8 g/dL (3.4-5.0); Alkaline Phosphatase 66 U/L (46-116); Anion Gap 10.2; Aspartate Amino Transferase 19 U/L (15-37); BUN Creatinine Ratio 10.2; Bilirubin Total 0.6 mg/dL (0.2-1.0); Calcium 8.2 mg/dL (8.5-10.1); Carbon Dioxide 26.7 mmol/L (21.0-32.0); Chloride 100 mmol/L (98-107); Estimated GFR (African America >60 (>=60); Estimated GFR (Non-African Ame >60 (>=60); Globulin 3.5 g/dL; Glucose 66 mg/dL (74-106); Potassium 3.9 mmol/L (3.5-5.1); Sodium 133 mmol/L (136-145); Total Protein 5.3 g/dL (6.4-8.2)
--- NOTE | 2023-08-25 06:25 | PC.NURSE ---
Up to BSC with assistance. Pt unsteady/shakey. Pt voids and has small soft brown BM. Pt returned to bed, alarm on and call light in reach
[2023-08-25 07:26] VITALS: BP 161/94; PULSE 54; RESP 14; TEMP 36.2; O2SAT 92
[2023-08-25 07:44] VITALS: RESP 14
[2023-08-25] MEDS: ENSURE CLEAR 237 ML LIQUID PO (08:24)
--- NOTE | 2023-08-25 11:02 | P.DS_ITS ---
DS: Providers Provider Date of admission: 08/23/23 19:34 Primary care physician: JC CARR Consults: 08/23/23 19:38 Occupational Therapy Eval and Treat Routine Reason for consultation: weakness Has provider been notified: No Physical Therapy Eval and Treat Routine Reason for consultation: weakness Has provider been notified: No 08/24/23 16:46 Consult to Dietitian Routine Reason For Exam: Poor PO intake Reason for consultation: Poor PO intake Attending physician on discharge: Shaikh Stevo Discharging clinician: Shaikh Stevo DS: Diagnosis Discharge Diagnosis (1) Syncope: Assessment and plan: Unclear etiology but seems more likely from orthostatic hypotension. 2D ECHO done - official reading is pending. I spoke to his son who has POA and there are no plans for aggressive measures and as such careful education, PT/OT and fall precautions are needed. Patient is going to detention for detention stay due to risk of falls. Qualifiers: Syncope type: unspecified Qualified Code(s): R55 - Syncope and collapse (2) Pre-syncope: Assessment and plan: Orthostatic hypotension. He was dehydrated on arrival and has been doing well since admission after receiving IV hydration. Has had poor PO intake and special attention needs to be given to ensure he has adequate po intake (3) Multiple falls: Assessment and plan: Due to unsteady gait and orthostasis. Will need a walker moving forward. Stable for d/c (4) Generalized weakness: Assessment and plan: Improved. likely from dehydration. Recommend continuing PT at detention (5) Hypertension: Assessment and plan: Not on any medications and considering his age, frequent falls. His BP even though is elevated, it is acceptable for him Qualifiers: Hypertension type: primary hypertension Qualified Code(s): I10 - Essential (primary) hypertension (6) A-fib: Assessment and plan: in NSR. Had watchman device. Qualifiers: Atrial fibrillation type: paroxysmal Qualified Code(s): I48.0 - Paroxysmal atrial fibrillation (7) Presence of Watchman left atrial appendage closure device: Assessment and plan: Not on AC due to watchman (8) Abnormal CT scan, head: Assessment and plan: Likely an artifact. No evidence of acute IC Bleed on subsequent CTH (9) Dementia: Assessment and plan: on aricept and abilify along with ativan Qualifiers: Dementia type: Alzheimer's Alzheimer's disease onset: late onset Dementia severity: moderate Dementia behavioral or psychological symptom: with anxiety Qualified Code(s): G30.1 - Alzheimer's disease with late onset; F02.B4 - Dementia in other diseases classified elsewhere, moderate, with anxiety DS: Summary Hospital Course Hospital Course: 83-year-old male was brought to Emergency Room for generalized weakness. His workup in the Emergency Room was unremarkable with no significant hematological or metabolic abnormality noted. Patient was admitted overnight for observation for dehydration, generalized weakness, PT/OT eval. He was given IV fluids and physical therapy/occupational therapy worked with him. He was noted to be unsteady on his feet and will require a walker to improve his balance and reduce the risk of fall. Upon interview, patient reported that he has had a progressive decline in functional status over the past couple of weeks with some good days in between. His son who is an RN reported to me that patient has had multiple falls. He has frequent episodes of presyncope and once he lost consciousness and found in the bathtub after falling down. Upon working with PT, it was felt that when patient's get up, he is very unsteady and tends to fall backward. He has not been using any assistive devide to help improve his balance and prevent fall An echo was done to assess his cardiac structure but not the report has not been finalized yet. Regardless, there is no plan for aggressive treatment or invasive procedure given his age and overall physical health when I spoke to his POA yesterday. Patient is felt to have no ongoing active medical issues that require inpatient treatment. He is stable for d/c and will go to detention. Status at Discharge Functional status at discharge: uses cane/walker Overall status at discharge: patient is progressing back to baseline Time Spent with Patient Time attestation: Total time spent providing and/or coordinating discharge services: Time spent: greater than 30 minutes Exam Constitutional Vital Signs, click to edit/add: Last Vital Signs Temp 97.2 F L 08/25/23 07:26 Pulse 54 L 08/25/23 07:26 Resp 14 08/25/23 07:44 BP 161/94 H 08/25/23 07:26 Pulse Ox 92 L 08/25/23 07:26 O2 Del Method Room Air 08/25/23 07:26 Documenting provider has reviewed patient's vital signs: yes Common normals: no apparent distress and oriented x3 General appearance: cooperative Respiratory Common normals: normal respiratory effort and clear to auscultation bilaterally Effort & inspection: able to speak in complete sentences Auscultation: clear to auscultation bilaterally Cardio Common normals: regular rate, S1 normal heart sound and S2 normal heart sound Rate: regular rate Heart sounds: S1 normal and S2 normal Extremity Common normals: no clubbing, cyanosis or edema Neuro Common normals: oriented x3, moves all extremities and no focal motor deficits Other: Shuffles, unsteady on ambulation, will require a walker. Psych Common normals: mental status grossly normal, denies hallucinations, denies homicidal ideation and denies suicidal ideation DS: Data Data Completed and Pending Labs on day of discharge: Labs from last 24 hours 08/25/23 04:34 WBC 7.0 RBC 4.04 L Hgb 12.0 L Hct 36.9 L MCV 91.3 MCH 29.7 MCHC 32.5 RDW 12.9 Plt Count 286 MPV 8.5 L Neut % (Auto) 60.6 Lymph % (Auto) 26.6 [place] % (Auto) 6.3 Eos % (Auto) 3.6 Baso % (Auto) 0.6 Neut # (Auto) 4.3 Lymph # (Auto) 1.9 [place] # (Auto) 0.4 Eos # (Auto) 0.3 Baso # (Auto) 0.0 Abs Immat Gran (auto) 0.16 H Imm/Tot Granulo (auto) 2.3 H Sodium 133 L Potassium 3.9 Chloride 100 Carbon Dioxide 26.7 Anion Gap 10.2 BUN 9.0 Creatinine 0.88 Est GFR ( Amer) >60 Est GFR (Non-Af Amer) >60 BUN/Creatinine Ratio 10.2 Glucose 66 L Calcium 8.2 L Total Bilirubin 0.6 AST 19 ALT 12 L Alkaline Phosphatase 66 Total Protein 5.3 L Albumin 1.8 L Globulin 3.5 Albumin/Globulin Ratio 0.5 Discharge Plan Discharge Disposition: er SNF Condition: Good Discharge Medications: Continued alprazolam 1 mg tablet extended release 24 hr 1 mg PO QAM aspirin 81 mg tablet,delayed release (DR/EC) 81 mg PO DAILY donepezil 10 mg tablet 20 mg PO .QHS escitalopram oxalate 10 mg tablet 10 mg PO .QHS aripiprazole 5 mg tablet 2.5 mg PO .QHS Forms: Portal Instructions Follow Up Appointments: Please call Dr. Carr's office on Monday to schedule a hospital follow-up appt. for 5-7 days following discharge. [phone]
--- NOTE | 2023-08-25 11:29 | SWNOTE1 ---
RAMONA spoke to Halina at [facility] and they are ready for pt whenever he is discharged. RAMONA called and spoke with pt's son, Meño. Meño and his brother are going to transport. They will be here in about 1-2 hours. RAMONA called and left Halina a message and faxed over me med rec. RAMONA updated nursing as well. RAMONA did speak with pt and let him know he is going to facility where his was. Pt did voice understanding. RAMONA did provide nurse with a number for report and will send pt and family with packet that inlcudes information sent to facility.
--- NOTE | 2023-08-25 11:36 | CM.NOTE ---
Rounds made with Dr. Whiteside. Plan is for patient to be discharged today and to go to [facility] as respite stay. Dr. Whiteside plans to contact family today to discuss and clarify DNR status.
--- NOTE | 2023-08-25 12:42 | PT.DAILY ---
Physical Therapy Daily Note PT Daily Note/Assess Start: 08/25/23 12:36 Freq: Status: Active Protocol: Document 08/25/23 12:36 DARBY (Rec: 08/25/23 12:42 DARBY [id number]) Physical Therapy Daily Note/Assessment Time In/Time Out Time In 11:30 Time Out 11:45 Pain In Pain N/A Pain Out Pain N/A Subjective Subjective Pt walking in his room without AD very unsteady upon arrival . he sits on couch as I enter room. he is wondering where his is. He is oriented to place and day and able to tell me his name and . Therapeutic Exercise Time Therapeutic Exercise Minutes (minutes) 4 Therapeutic Exercise Units 0 Therapeutic Exercise Treatment Therapeutic Exercise Treatment Bilat LE strengthening ex complete while sitting in BS chair 10x ea. 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 We walk to nurses station to clarify where his is and his DC plans. Pt is happy to know what is going on now. Pt amb with his RW 80' then back to his BS chair. Pt has R lateral LOB and needs Patricia to correct and to get him to his chair. Pt completes bilat LE strengthening ex in his BS chair. Call light is in reach upon completion. Total Physical Therapy Time Total Therapy Minutes 13 Total Physical Therapy Units 1 Summary Daily Note Summary Improved gait endurance. 1x LOB when getting into BS chair - Patricia to correct.
--- NOTE | 2023-08-28 14:45 | CM.DCFOLLOWU ---
Pt was discharged to [facility]. No follow up call made.
== END 2023-08-25 13:18 | disposition home or self-care (01) ==
LOC: ER 18:55 → MS 19:41
PROVIDERS: Nurse Practitioner Acute Care; Admitting Provider Internal Medicine; Emergency Provider Emergency Medicine; PCP Family Medicine; Visit Provider Internal Medicine
DX: E86.0 Dehydration (principal); I95.1 Orthostatic hypotension; R53.1 Weakness; I10 Essential (primary) hypertension; I48.91 Unspecified atrial fibrillation; R93.0 Abnormal findings on diagnostic imaging of skull and head, not elsewhere classified; G30.1 Alzheimer's disease with late onset; F02.B4 Dementia in other diseases classified elsewhere, moderate, with anxiety; Z91.81 History of falling; Z95.818 Presence of other cardiac implants and grafts; I25.2 Old myocardial infarction; Z79.82 Long term (current) use of aspirin; Z79.899 Other long term (current) drug therapy; Z87.891 Personal history of nicotine dependence; Z20.822 Contact with and (suspected) exposure to COVID-19; Z85.46 Personal history of malignant neoplasm of prostate; Z66 Do not resuscitate
CPT/HCPCS: 36415; 51702; 70450; 71045; 80048; 80053; 80061; 81001; 84484; 85025; 87040; 87086; 87804; 87811; 93005; 93306; 96360; 96361; 97161; 97165; 97530; 99285; G0378

== ENCOUNTER 2024-05-27 13:31 | Outpatient (OUT) | payer MEDICARE, OTHER, SELFPAY ==
--- NOTE | 2024-05-27 14:12 | XR_ITS ---
The [address] [address] Patient Name: NETTE CAO MRN: [id number] date: 1940 Sex: M Assigned Patient Location: [facility] Current Patient Location: Accession/Order Number: [id number] Exam Date: 05/27/2024 14:02 Report Date: 05/28/2024 09:09 At the request of: JC CARR Procedure: XR shoulder LT min 2V PROCEDURE: XR shoulder LT min 2V COMPARISON: None. HISTORY: Acute Pain Of Left Shoulder FINDINGS: BONES:No acute fracture or dislocation. Mild to moderate osteoarthropathy of the acromioclavicular and glenohumeral joints SOFT TISSUES:Negative. No visible soft tissue swelling. EFFUSION:None visible. OTHER: Negative. XR/XR shoulder LT min 2V IMPRESSION: Mild to moderate osteoarthritis Electronically authenticated by: TELMA RANDOLPH Date: 05/28/2024 09:09
== END 2024-05-27 13:32 | disposition home or self-care (01) ==
LOC: RAD 13:33
PROVIDERS: PCP Family Medicine; Visit Provider Family Medicine
DX: M25.512 Pain in left shoulder (principal); W19.XXXS Unspecified fall, sequela; M19.012 Primary osteoarthritis, left shoulder
CPT/HCPCS: 73030

== ENCOUNTER 2024-06-02 08:28 | Emergency (ER) | payer MEDICARE, OTHER, SELFPAY ==
[2024-06-02 08:43] VITALS: BP 139/99; PULSE 75; TEMP 36.4; O2SAT 97; BMI 25.1
--- OUTSIDE RECORDS SUMMARY | 2024-06-02 08:45 | XMS_ITS | CCD ---
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 Name Role Phone Cedric Carr Unavailable Mohamud Ruth Unavailable [phone] DEO RATUL Unavailable Unavailable CEDRIC CARR Unavailable Unavailable Deo Ratul Unavailable Cedric Carr Primary Care Provider Mohamud Ruth Unavailable [phone] Raymark Ratul Unavailable Cedric Carr Primary Care Provider Mohamud Ruth Unavailable Cedric Carr Primary Care Provider [phone] AUSTEN JEFF Admitting Unavailab AUSTEN Abraham Attending Unavailab le CEDRIC CARR Primary Care Unavailable AUSTEN JEFF Admitting Unavailab AUSTEN Abraham Attending Unavailab le CEDRIC CARR Primary Care Unavailable ANGELA PATEL Attending Unavailable CEDRIC CARR Primary Care Unavailable Cedric Carr Primary Care Provider [phone] Deo Ratul Unavailable Cedric Carr Primary Care Provider KYLE RUTH Referring Unavailable CEDRIC CRAR Primary Care Unavailable KYLE RUTH Referring Unavailable CEDRIC CARR Primary Care Unavailable KYLE RUTH Referring Unavailable CEDRIC CARR Primary Care Unavailable KYLE RUTH Referring Unavailable CEDRIC CARR Primary Care Unavailable SNEHAL, ENOCH Admitting Unavailable SNEHAL, ENOCH Attending Unavailable CEDRIC CARR Primary Care Unavailable BRAEDEN SCHAEFER Referring Unavailable HI Procedure Practitioner Unavailab EVELYN Gunderson Surgeon Unavailable [...] CAO Admitting Unavailable TORRIE, UDAY Attending Unavailable MOUKARBEL, KILEY Attending Unavailable Keirayer Cedric FIGUEREDO Primary Care Provider Cedric Carr MD Unavailable [phone] Cedric Carr MD Primary Care Provider Cedric Carr MD Unavailable [phone] Cedric Carr MD Primary Care Provider Cedric Carr MD Unavailable [phone] CEDRIC CARR Attending Unavailable TISH YAÑEZ Attending Unavailable CEDRIC CARR Referring Unavailable GERMAINE CONCEPCION Attending Unavailable CEDRIC CARR Referring Unavailable TISH YAÑEZ Attending Unavailable CEDRIC CARR Referring Unavailable CEDRIC CARR Attending Unavailable CEDRIC CARR Attending Unavailable CEDRIC CARR Attending Unavailable Allergies Allergy Classification Reported Allergen(s) Allergy Type Date of Onset Reaction(s) Facility Amino Acids (1 source) Amino Acids Drug Allergy 1 [facility] Repository Sulfonamides (antibiotic) (1 source) Sulfonamides (Antibiotic) Drug Allergy 1 [facility] (13 sources) Sulfonamides (Antibiotic); Translations: [SULFA (SULFONAMIDE ANTIBIOTICS)] Propensity to adverse reactions to drug 8 Anaphylaxis [facility] (8 sources) Sulfonamides (Antibiotic) Propensity to adverse reactions to drug 6 Anaphylaxis [place], [place] (2 sources) Amino Acids Drug Allergy 0 [place] (2 sources) Lisinopril Drug Allergy 0 Other (See Comments) [place] (1 source) Amino Acids Drug Allergy [facility] Repository (2 sources) Sulfonamides (Antibiotic) Drug allergy (disorder) 0 [facility] (1 source) SULFOIL; Translations: [SULFOIL] Propensity to adverse reactions to drug (disorder) 3 [facility] Repository (7 sources) Lisinopril Allergy to substance 3 [facility] (7 sources) Sulfonamides (Antibiotic) Drug Allergy 3 [facility] Medications Current Medications Medication Drug Class(es) Dates Sig (Normalized) Sig (Original) acetaminophen 500 mg oral tablet (7 sources) take 1 tablet by mouth every six hours as needed acetaminophen (TYLENOL) 500 MG tablet Take 500 mg by mouth every 6 (six) hours as needed for pain. 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 30 tablet 5 04/13/2023 10/10/2023 Active fexofenadine hydrochloride 180 mg oral tablet (7 sources) Histamine-1 Receptor Antagonist take 1 tablet by mouth once daily fexofenadine (Nicole Allergy) 180 MG tablet Take 180 mg by mouth 1 (one) time each day at the same time. Active hydrALAZINE hydrochloride 25 mg oral tablet [...] hydrochloride 5 mg oral tablet (3 sources) L-bwjgey-I-aspartate Receptor Antagonist Start: 05-02-2023 take 1 tablet [...] nightly 0 Active Multiple Vitamin (Multi-Vitamin) tablet (7 sources) take 1 tablet by mouth in the morning Multiple Vitamin (Multi-Vitamin) tablet Take 1 tablet by mouth in the morning. Active take 1 tablet by mouth in the mo rning Multiple Vitamin (Multi-Vitamin) tablet Take 1 tablet [...] Drug Class(es) Dates Sig (Normalized) Sig (Original) amLODIPine 5 mg oral tablet (15 sources) Dihydropyridine Calcium Channel Geoff Start: 01-24-2024 End: 11-16-2024 take 1 tablet by mouth once daily amLODIPine (Norvasc) 5 MG tablet Indications: Benign essential hypertension (CMS/HCC) Take 1 tablet (5 mg) by mouth Daily 90 tablet 1 04/24/2024 05/20/2024 Discontinued (Reorder) Start: 04-28-2020 take 1 tablet by david th once daily amLODIPine (NORVASC) 5 MG tablet TAKE ONE TABLET BY MOUTH ONCE DAILY 90 tablet 3 04/28/2020 Active Start: 04-16-2019 take 1 tablet by david th once daily amLODIPine (NORVASC) 5 MG tablet Take 1 tablet by mouth daily 90 tablet 3 04/16/2019 Active apixaban 5 mg oral tablet (5 sources) [...] 40 mg by mouth daily 0 Active losartan potassium 50 mg oral tablet (7 sources) Angiotensin 2 Receptor Geoff Start: 01-24-2024 End: 11-16-2024 take 1 tablet by mouth once daily losartan (Cozaar) 50 MG tablet Indications: Benign essential hypertension (CMS/HCC) Take 1 tablet (50 mg) by mouth Daily 90 tablet 1 04/24/2024 05/20/2024 Discontinued (Reorder) 2 ml midazolam 1 mg/ml injection (1 [...] Resolved: 09-03-2019 03-31-2016 Chronic Acute myocardial infarction (7 sources) Acute non-ST segment elevation myocardial infarction; Translations: [Non-ST elevation (NSTEMI) myocardial infarction] Onset: 12-29-2020 05-16-2023 Chronic Anxiety disorders (9 sources) Generalized anxiety disorder; Translations: [Generalized anxiety disorder] Onset: 03-07-2023 03-07-2023 Chronic Cardiac dysrhythmias (20 sources) Paroxysmal atrial fibrillation; Translations: [Chronic atrial fibrillation] Onset: 12-26-2015 01-18-2018 Chronic Coronary atherosclerosis and other heart disease (15 sources) Atherosclerotic heart disease of [place] coronary artery without angina pectoris; Translations: [Old myocardial infarction] Onset: 02-03-2022 Chronic Coronary atherosclerosis and other heart disease (2 sources) Presence of coronary angioplasty implant and graft; Translations: [Presence of coronary angioplasty implant and graft] Onset: 03-24-2023 Episodic Delirium, dementia, and amnestic and other cognitive disorders (15 sources) Vascular dementia without behavioral disturbance; Translations: [Vascular dementia without behavioral disturbance] Onset: 03-07-2023 03-07-2023 Chronic Disorders of lipid metabolism (19 sources) Hyperlipidemia; Translations: [Mixed hyperlipidemia] Onset: 12-26-2015 03-31-2016 Chronic E Codes: Fall (2 sources) Fall; Translations: [Unspecified fall, sequela] 05-20-2024 Episodic Essential hypertension (20 sources) Essential hypertension; Translations: [Essential (primary) hypertension] Onset: 12-26-2015 03-31-2016 Chronic Hypertension with complications and secondary hypertension (15 sources) Hypertensive emergency; Translations: [Hypertensive renal disease] Onset: 03-31-2016 03-31-2016 Chronic Intracranial injury (1 source) Traumatic subdural hemorrhage with loss of consciousness of unspecified duration, initial encounter; Translations: [Traumatic subdural hemorrhage with loss of consciousness of unspecified duration, initial encounter] Onset: 01-25-2018 Episodic Malaise and fatigue (9 sources) Fatigue; Translations: [Chronic fatigue, unspecified] Onset: 03-07-2023 03-07-2023 Chronic Malaise and fatigue (2 sources) Asthenia; Translations: [Weakness] 07-24-2023 Episodic Mood disorders (11 sources) Moderate major depression ; Translations: [Major depressive disorder, single episode, moderate] Onset: 03-07-2023 03-07-2023 Chronic Nutritional deficiencies (4 sources) Vitamin D deficiency; Translations: [Vitamin D deficiency disease] Chronic Other aftercare (9 sources) Drug therapy finding; Translations: [Other half-way (current) drug therapy] Onset: 03-07-2023 03-07-2023 Episodic Other and ill-defined heart disease (7 sources) Bilateral enlargement of atria; Translations: [Cardiomegaly] Onset: 03-07-2023 03-07-2023 Chronic Other circulatory disease (2 sources) Presence of other cardiac implants and grafts; Translations: [Presence of other cardiac implants and grafts] Onset: 08-24-2022 Chronic Other circulatory disease (7 sources) Disorder of aorta; 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] Onset: 03-07-2023 03-07-2023 Chronic Other injuries and conditions due to external causes (2 sources) At risk for falls ; Translations: [History of falling] 07-24-2023 Episodic Other lower respiratory disease (7 sources) Pulmonary granuloma; Translations: [Pulmonary fibrosis, unspecified] Onset: 03-07-2023 03-07-2023 Chronic Other non-traumatic joint disorders (2 sources) Pain in left shoulder; Translations: [Pain in joint, shoulder region] 05-20-2024 Episodic Other upper respiratory disease (7 sources) Allergic rhinitis due to pollen; Translations: [Allergic rhinitis due to pollen] Onset: 03-07-2023 03-07-2023 Chronic Spondylosis; intervertebral disc disorders; other back problems (7 sources) Spondylosis; Translations: [Spondylosis, unspecified] Onset: 03-07-2023 03-07-2023 Chronic Thyroid disorders (7 sources) Acquired hypothyroidism; Translations: [Hypothyroidism, unspecified] Onset: [...] kidney injury) (HCC)] Onset: 04-06-2018 04-06-2018 Episodic Adjustment disorders (7 sources) Acute situational disturbance; Translations: [Adjustment disorder, unspecified] Onset: 03-07-2023 Resolved: 05-23-2024 03-07-2023 Chronic Administrative/social admission (7 sources) Sickness in the family; Translations: [Other stressful life events affecting family and household] Onset: 03-07-2023 Resolved: 05-23-2024 03-07-2023 Episodic Cancer of prostate (7 sources) History of malignant neoplasm of prostate; Translations: [Personal history of malignant neoplasm of prostate] Onset: 03-07-2023 03-07-2023 Episodic Epilepsy; convulsions (8 sources) Partial seizure; Translations: [Partial seizures] Onset: 04-02-2016 04-02-2016 Episodic Other aftercare (3 sources) Patient encounter status; Translations: [intermediate manager (current) use of antithrombotics/ant iplatelets] Onset: 03-07-2023 03-07-2023 Episodic Other aftercare (9 sources) Polypharmacy ; Translations: [Other half-way (current) drug therapy] Onset: 03-07-2023 Resolved: 10-17-2023 03-07-2023 Episodic Other aftercare (4 sources) Long-term current use of drug therapy; Translations: [alf (current) use of antithrombotics/ant iplatelets] Onset: 03-07-2023 03-07-2023 Episodic Other hereditary and degenerative nervous system conditions (7 sources) Impaired cognition; Translations: [Mild cognitive impairment, so stated] Onset: 03-07-2023 Resolved: 05-23-2024 03-07-2023 Chronic Other lower respiratory disease (1 source) Other nonspecific abnormal finding of lung field; Translations: [OTH NONSPECIFIC ABN FIND LNG FIELD] Onset: 07-27-2021 Episodic Other nervous system disorders (9 sources) White matter disease; Translations: [White matter disease, unspecified] Onset: 03-07-2023 03-07-2023 Episodic Residual codes; unclassified (8 sources) Creatinine level - finding; Translations: [Creatinine elevation] Onset: 12-26-2015 03-31-2016 Episodic Residual codes; unclassified (7 sources) Amnesia; Translations: [Other amnesia] Onset: 03-07-2023 03-07-2023 Episodic Results Test Name Value Interpretation Reference Range Facility Office Visiton 03-24-2023 Follow-up visit [id number] Keaton Hammond es R Sr. 1940 M Date Provider Department Center 03/24/2023 KILEY HASSAN SERINA [facility] No family history on file Level of Service:62933 HI OFFICE/OUTPATIENT ESTABLISHED LOW MDM 20-29 MIN Reason for Visit and Comments: Follow-up [327511] [facility] Office Visiton 08-24-2022 Follow-up visit [id number] Keaton Hammond es R Sr. 1940 M Date Provider Department Center 08/24/2022 UDAY KLEIN [facility] No family history on file Level of Service:89596 HI OFFICE/OUTPATIENT ESTABLISHED MOD MDM 30-39 MIN Reason for Visit and Comments: Follow-up [283125] Normal [facility] CBC AUTO DIFFon 02-03-2022 BASO # 0.1 103/ul Normal 0.0-0.1 [facility] Comment on above: Performed By: #### C BC #### [facility] [address] [address] [address] Kenneth Sepulveda Basophils/100 WBC (Bld) 0.6 % Normal 0.2-2.0 [facility] Comment on above: Performed By: #### C BC #### [facility] [address] [address] [address] Kenneth Sepulveda EO # 0.2 103/ul Normal 0.0-0.7 [facility] Comment on above: Performed By: #### C BC #### [facility] [address] [place] [address] Dr. Kenneth Sepulveda Eosinophils/100 WBC (Bld) 2.1 % Normal 0.9-7.0 [facility] Comment on above: Performed By: #### C BC #### [facility] [address] [place] [address] Dr. Kenneth Sepulveda Erythrocyte distribution width (RBC) [Ratio] 12.4 % Normal 11.0-15.0 [facility] Comment on above: Performed By: #### C BC #### [facility] [address] [place] [address] Dr. Kenneth Sepulveda Hematocrit (Bld) [Volume fraction] 42.4 % Normal 42.0-54.0 [facility] Comment on above: Performed By: #### C BC #### [facility] [address] [place] [address] Dr. Kenneth Sepulveda Hemoglobin (Bld) [Mass/Vol] 14.4 g/dL Normal 14.0-18.0 [facility] Comment on above: Performed By: #### C BC #### [facility] [address] [place] [address] Dr. Kenneth Sepulveda IG # 0.03 10e3/ul Normal 0.00-0.03 [facility] Comment on above: Performed By: #### C BC #### [facility] [address] [place] [address] Dr. Kenneth Sepulveda IG % 0.4 % Normal 0.0-0.5 [facility] Comment on above: Performed By: #### C BC #### [facility] [address] [place] [address] Dr. Kenneth Sepulveda LYMPH # 1.7 103/ul Normal 1.2-3.8 [facility] Comment on above: Performed By: #### C BC #### [facility] [address] [place] [address] Dr. Kenneth Sepulveda Lymphocytes/100 WBC (Bld) 21.8 % Normal 20.5-60.0 [facility] Comment on above: Performed By: #### C BC #### [facility] [address] [place] [address] Dr. Kenneth Sepulveda MANUAL DIFF REQ NO Normal [facility] Comment on above: Performed By: #### C BC #### [facility] [address] [place] [address] Dr. Kenneth Sepulveda MCH (RBC) [Entitic mass] 30.6 pg Normal 25.9-34.0 [facility] Comment on above: Performed By: #### C BC #### [facility] [address] [place] [address] Dr. Kenneth Sepulveda MCHC (RBC) [Mass/Vol] 34.0 g/dL Normal 29.9-35.2 [facility] Comment on above: Performed By: #### C BC #### [facility] [address] [place] [address] Dr. Kenneth Sepulveda MCV (RBC) [Entitic vol] 90.2 fL Normal 80.0-94.0 [facility] Comment on above: Performed By: #### C BC #### [facility] [address] [place] [address] Dr. Kenneth Sepulveda MONO # 0.6 103/ul Normal 0.3-0.8 [facility] Comment on above: Performed By: #### C BC #### [facility] [address] [place] [address] Dr. Kenneth Sepulveda Monocytes/100 WBC (Bld) 7.1 % Normal 1.7-12.0 [facility] Comment on above: Performed By: #### C BC #### [facility] [address] [place] [address] Dr. Kenneth Sepulveda NEUT # 5.3 103/ul Normal 1.4-6.5 [facility] Comment on above: Performed By: #### C BC #### [facility] [address] [place] [address] Dr. Kenneth Sepulveda Neutrophils/100 WBC (Bld) 68.0 % Normal 43.0-75.0 [facility] Comment on above: Performed By: #### C BC #### [facility] [address] [address] [address] Kenneth Sepulveda Platelet mean volume (Bld) [Entitic vol] 9.1 fL Critically low 9.5-13.5 [facility] Comment on above: Performed By: #### C BC #### [facility] [address] [address] [address] Kenneth Sepulveda PLT 197 103/ul Normal 150-450 [facility] Comment on above: Performed By: #### C BC #### [facility] [address] [place] [address] Dr. Kenneth Sepulveda RBC 4.70 106/ul Normal 4.70-6.10 [facility] Comment on above: Performed By: #### C BC #### [facility] [address] [place] [address] Dr. Kenneth Sepulveda WBC 7.8 103/ul Normal 4.0-11.0 [facility] Comment on above: Performed By: #### C BC #### [facility] [address] [place] [address] Dr. Kenneth Sepulveda LIPID PROFILEon 02-03-2022 CHOL-HDL RATIO NORM SEE BELOW Normal [facility] Comment on above: Result Comment: 3.3 - 4.4 LOW RISK 4.4 - 7.1 AVERAGE RISK 7.1 - 11.0 MODERATE RISK >11.0 HIGH RISK Performed By: #### L IPID, CMP #### [facility] [address] [place] [address] Dr. Kenneth Sepulveda Cholesterol [Mass/Vol] 116 mg/dL Normal <=200 [facility] Comment on above: Performed By: #### L IPID, CMP #### [facility] [address] [place] [address] Dr. Kenneth Sepulveda Cholesterol in HDL [Mass/Vol] 40 mg/dL Normal 40-60 [facility] Comment on above: Performed By: #### L IPID, CMP #### [facility] [address] [place] [address] Dr. Kenneth Sepulveda Cholesterol in LDL [Mass/Vol] 57.2 mg/dL Normal [facility] Comment on above: Performed By: #### L IPID, CMP #### [facility] [address] [address] [address] Kenneth Sepulveda Cholesterol.total/Ch olesterol in HDL [Mass ratio] 2.9 {ratio} Normal [facility] Comment on above: Performed By: #### L IPID, CMP #### [facility] [address] [address] [address] Kenneth Sepulveda HDL NORMAL > or = 60 mg/dl - LO W CARDIOVASCULAR RISK <40 mg/dl - HIGH CARDIOVASCULAR RISK Normal [facility] Comment on above: Performed By: #### L IPID, CMP #### [facility] [address] [place] [address] Dr. Kenneth Sepulveda LDL CALC NORMAL SEE BELOW Normal [facility] Comment on above: Result Comment: <100 mg/dl OPTIMAL 100 - 129 mg/dl NEAR OR ABOVE OPTIMAL 130 - 159 mg/dl BORDERLINE HIGH 160 - 189 mg/dl HIGH >190 mg/dl VERY HIGH Performed By: #### L IPID, CMP #### [facility] [address] [address] [address] Kenneth Sepulveda Triglyceride [Mass/Vol] 94 mg/dL Normal <=150 [facility] Comment on above: Performed By: #### L IPID, CMP #### [facility] [address] [place] [address] Dr. Kenneth Sepulveda VLDL CALC 18.8 mg/dL Normal [facility] Comment on above: Performed By: #### L IPID, CMP #### [facility] [address] [address] [address] Kenneth Sepulveda PROF 14(COMP METB)on 022 Albumin [Mass/Vol] 3.6 g/dL Normal 3.4-5.0 [facility] Comment on above: Performed By: #### L IPID, CMP #### [facility] [address] [place] [address] Dr. Kenneth Sepulveda Albumin/Globulin [Mass ratio] 1.1 {ratio} Normal [facility] Comment on above: Performed By: #### L IPID, CMP #### [facility] [address] [address] [address] Kenneth Sepulveda ALP [Catalytic activity/Vol] 88 U/L Normal 46-116 [facility] Comment on above: Performed By: #### L IPID, CMP #### [facility] [address] [address] [address] Kenneth Sepulveda ALT [Catalytic activity/Vol] 40 U/L Normal 16-63 [facility] Comment on above: Performed By: #### L IPID, CMP #### [facility] [address] [address] [address] Kenneth Sepulveda Anion gap [Moles/Vol] 14.3 mmol/L Normal [facility] Comment on above: Performed By: #### L IPID, CMP #### [facility] [address] [address] [address] Kenneth Sepulveda AST [Catalytic activity/Vol] 25 U/L Normal 15-37 [facility] Comment on above: Performed By: #### L IPID, CMP #### [facility] [address] [address] [address] Kenneth Sepulveda Bilirubin [Mass/Vol] 1.0 mg/dL Normal 0.2-1.0 [facility] Comment on above: Performed By: #### L IPID, CMP #### [facility] [address] [address] [address] Kenneth Sepulveda Calcium [Mass/Vol] 8.9 mg/dL Normal 8.5-10.1 [facility] Comment on above: Performed By: #### L IPID, CMP #### [facility] [address] [address] [address] Kenneth Sepulveda Chloride [Moles/Vol] 98 mmol/L Normal 98-107 [facility] Comment on above: Performed By: #### L IPID, CMP #### [facility] Laboratory [address] [address] [address] Kenneth Sepulveda CO2 [Moles/Vol] 26.6 mmol/L Normal 21.0-32.0 [facility] Comment on above: Performed By: #### L IPID, CMP #### [facility] Laboratory [address] [address] [address] Kenneth Sepulveda Creatinine [Mass/Vol] 1.17 mg/dL Normal 0.70-1.30 [facility] Comment on above: Performed By: #### L IPID, CMP #### [facility] Laboratory [address] [address] [address] Kenneth Sepulveda EGFR-AF MOLDOVAN >60 Normal >=60 [facility] Comment on above: Performed By: #### L IPID, CMP #### [facility] Laboratory [address] [address] [address] Kenneth Sepulveda EGFR-NON AF MOLDOVAN 60 mL/min/1.73m2 Normal >=60 [facility] Comment on above: Performed By: #### L IPID, CMP #### [facility] Laboratory [address] [place] [address] Dr. Kenneth Sepulveda Globulin (S) [Mass/Vol] 3.2 g/dL Normal [facility] Comment on above: Performed By: #### L IPID, CMP #### [facility] Laboratory [address] [address] [address] Kenneth Sepulveda Glucose [Mass/Vol] 90 mg/dL Normal 74-106 [facility] Comment on above: Performed By: #### L IPID, CMP #### [facility] Laboratory [address] [address] [address] Kenneth Sepulveda Potassium [Moles/Vol] 3.9 mmol/L Normal 3.5-5.1 [facility] Comment on above: Performed By: #### L IPID, CMP #### [facility] Laboratory [address] [address] [address] Kenneth Sepulveda Protein [Mass/Vol] 6.8 g/dL Normal 6.4-8.2 [facility] Comment on above: Performed By: #### L IPID, CMP #### [facility] Laboratory [address] [address] [address] Kenneth Sepulveda Sodium [Moles/Vol] 135 mmol/L Critically low 136-145 [facility] Comment on above: Performed By: #### L IPID, CMP #### [facility] Laboratory [address] [address] [address] Kenneth Sepulveda Urea nitrogen [Mass/Vol] 14.0 mg/dL Normal 7.0-18.0 [facility] Comment on above: Performed By: #### L IPID, CMP #### [facility] Laboratory [address] [address] [address] Kenneth Sepulveda Urea nitrogen/Creatinine [Mass ratio] 12.0 mg/mg Normal [facility] Comment on above: Performed By: #### L IPID, CMP #### [facility] Laboratory [address] [address] [address] Kenneth Sepulveda XR CHEST 2 Von [...] BOY ADAME Date: 2021-07-22 13:26 Normal [facility] CBC AUTO DIFFon 07-21-2021 BASO # 0.0 103/ul Normal 0.0-0.1 [facility] Comment on above: Performed By: #### C BC #### [facility] Laboratory [address] [address] [address] Kenneth Sepulveda Basophils/100 WBC (Bld) 0.5 % Normal 0.2-2.0 [facility] Comment on above: Performed By: #### C BC #### [facility] Laboratory [address] [place] [address] Dr. Kenneth Sepulveda EO # 0.1 103/ul Normal 0.0-0.7 [facility] Comment on above: Performed By: #### C BC #### [facility] Laboratory [address] [place] [address] Dr. Kenneth Sepulveda Eosinophils/100 WBC (Bld) 1.3 % Normal 0.9-7.0 [facility] Comment on above: Performed By: #### C BC #### [facility] Laboratory [address] [place] [address] Dr. Kenneth Sepulveda Erythrocyte distribution width (RBC) [Ratio] 13.2 % Normal 11.0-15.0 [facility] Comment on above: Performed By: #### C BC #### [facility] Laboratory [address] [place] [address] Dr. Kenneth Sepulveda Hematocrit (Bld) [Volume fraction] 43.5 % Normal 42.0-54.0 [facility] Comment on above: Performed By: #### C BC #### [facility] Laboratory [address] [place] [address] Dr. Kenneth Sepulveda Hemoglobin (Bld) [Mass/Vol] 14.5 g/dL Normal 14.0-18.0 [facility] Comment on above: Performed By: #### C BC #### [facility] Laboratory [address] [place] [address] Dr. Kenneth Sepulveda IG # 0.03 10e3/ul Normal 0.00-0.03 [facility] Comment on above: Performed By: #### C BC #### [facility] Laboratory [address] [place] [address] Dr. Kenneth Sepulveda IG % 0.4 % Normal 0.0-0.5 [facility] Comment on above: Performed By: #### C BC #### [facility] Laboratory [address] [place] [address] Dr. Kenneth Sepulveda LYMPH # 2.2 103/ul Normal 1.2-3.8 [facility] Comment on above: Performed By: #### C BC #### [facility] Laboratory [address] [place] [address] Dr. Kenneth Sepulveda Lymphocytes/100 WBC (Bld) 27.7 % Normal 20.5-60.0 [facility] Comment on above: Performed By: #### C BC #### [facility] Laboratory [address] [place] [address] Dr. Kenneth Sepulveda MANUAL DIFF REQ NO Normal [facility] Comment on above: Performed By: #### C BC #### [facility] Laboratory [address] [place] [address] Dr. Kenneth Sepulveda MCH (RBC) [Entitic mass] 30.4 pg Normal 25.9-34.0 [facility] Comment on above: Performed By: #### C BC #### [facility] Laboratory [address] [place] [address] Dr. Kenneth Sepulveda MCHC (RBC) [Mass/Vol] 33.3 g/dL Normal 29.9-35.2 [facility] Comment on above: Performed By: #### C BC #### [facility] Laboratory [address] [place] [address] Dr. Kenneth Sepulveda MCV (RBC) [Entitic vol] 91.2 fL Normal 80.0-94.0 [facility] Comment on above: Performed By: #### C BC #### [facility] Laboratory [address] [place] [address] Dr. Kenneth Sepulveda MONO # 0.5 103/ul Normal 0.3-0.8 [facility] Comment on above: Performed By: #### C BC #### [facility] [address] [place] [address] Dr. Kenneth Sepulveda Monocytes/100 WBC (Bld) 6.6 % Normal 1.7-12.0 [facility] Comment on above: Performed By: #### C BC #### [facility] Laboratory [address] [place] [address] Dr. Kenneth Sepulveda NEUT # 4.9 103/ul Normal 1.4-6.5 [facility] Comment on above: Performed By: #### C BC #### [facility] Laboratory [address] [place] [address] Dr. Kenneth Sepulveda Neutrophils/100 WBC (Bld) 63.5 % Normal 43.0-75.0 [facility] Comment on above: Performed By: #### C BC #### [facility] Laboratory [address] [place] [address] Dr. Kenneth Sepulveda Platelet mean volume (Bld) [Entitic vol] 8.7 fL Critically low 9.5-13.5 [facility] Comment on above: Performed By: #### C BC #### [facility] [address] [place] [address] Dr. Kenneth Sepulveda PLT 219 103/ul Normal 150-450 [facility] Comment on above: Performed By: #### C BC #### [facility] [address] [place] [address] Dr. Kenneth Sepulveda RBC 4.77 106/ul Normal 4.70-6.10 [facility] Comment on above: Performed By: #### C BC #### [facility] [address] [place] [address] Dr. Kenneth Sepulveda WBC 7.8 103/ul Normal 4.0-11.0 [facility] Comment on above: Performed By: #### C BC #### [facility] Laboratory [address] [place] [address] Dr. Kenneth Sepulveda LIPID PROFILEon 07-21-2021 CHOL-HDL RATIO NORM SEE BELOW Normal [facility] Comment on above: Result Comment: 3.3 - 4.4 LOW RISK 4.4 - 7.1 AVERAGE RISK 7.1 - 11.0 MODERATE RISK >11.0 HIGH RISK Performed By: #### C MP, LIPID #### [facility] [address] [place] [address] Dr. Kenneth Sepulveda Cholesterol [Mass/Vol] 151 mg/dL Normal <=200 [facility] Comment on above: Performed By: #### C MP, LIPID #### [facility] Laboratory [address] [place] [address] Dr. Kenneth Sepulveda Cholesterol in HDL [Mass/Vol] 45 mg/dL Normal [facility] Comment on above: Performed By: #### C MP, LIPID #### [facility] [address] [place] [address] Dr. Kenneth Sepulveda Cholesterol in LDL [Mass/Vol] 88.4 mg/dL Normal [facility] Comment on above: Performed By: #### C MP, LIPID #### [facility] [address] [address] [address] Kenneth Sepulveda Cholesterol.total/Ch olesterol in HDL [Mass ratio] 3.4 {ratio} Normal [facility] Comment on above: Performed By: #### C MP, LIPID #### [facility] [address] [place] [address] Dr. Kenneth Sepulveda HDL NORMAL > or = 60 mg/dl - LO W CARDIOVASCULAR RISK <40 mg/dl - HIGH CARDIOVASCULAR RISK Normal [facility] Comment on above: Performed By: #### C MP, LIPID #### [facility] [address] [address] [address] Kenneth Sepulveda LDL CALC NORMAL SEE BELOW Normal [facility] Comment on above: Result Comment: <100 mg/dl OPTIMAL 100 - 129 mg/dl NEAR OR ABOVE OPTIMAL 130 - 159 mg/dl BORDERLINE HIGH 160 - 189 mg/dl HIGH >190 mg/dl VERY HIGH Performed By: #### C MP, LIPID #### [facility] [address] [place] [address] Dr. Kenneth Sepulveda Triglyceride [Mass/Vol] 88 mg/dL Normal <=150 [facility] Comment on above: Performed By: #### C MP, LIPID #### [facility] [address] [place] [address] Dr. Kenneth Sepulveda VLDL CALC 17.6 mg/dL Normal [facility] Comment on above: Performed By: #### C MP, LIPID #### [facility] Laboratory [address] [place] [address] Dr. Kenneth Sepulveda PROF 14(COMP METB)on 022 Albumin [Mass/Vol] 3.7 g/dL Normal 3.5-5.0 [facility] Comment on above: Performed By: #### C MP, LIPID #### [facility] [address] [place] [address] Dr. Kenneth Sepulveda Albumin/Globulin [Mass ratio] 1.1 {ratio} Normal [facility] Comment on above: Performed By: #### C MP, LIPID #### [facility] [address] [place] [address] Dr. Kenneth Sepulveda ALP [Catalytic activity/Vol] 57 U/L Normal 38-126 [facility] Comment on above: Performed By: #### C MP, LIPID #### [facility] [address] [place] [address] Dr. Kenneth Sepulveda ALT [Catalytic activity/Vol] 20 U/L Critically low 21-72 [facility] Comment on above: Performed By: #### C MP, LIPID #### [facility] [address] [address] [address] Kenneth Sepulveda Anion gap [Moles/Vol] 9.8 mmol/L Normal [facility] Comment on above: Performed By: #### C MP, LIPID #### [facility] [address] [place] [address] Dr. Kenneth Sepulveda AST [Catalytic activity/Vol] 15 U/L Critically low 17-59 [facility] Comment on above: Performed By: #### C MP, LIPID #### [facility] [address] [place] [address] Dr. Kenneth Sepulveda Bilirubin [Mass/Vol] 0.8 mg/dL Normal 0.2-1.3 [facility] Comment on above: Performed By: #### C MP, LIPID #### [facility] Laboratory [address] [place] [address] Dr. Kenneth Sepulveda Calcium [Mass/Vol] 9.5 mg/dL Normal 8.4-10.2 [facility] Comment on above: Performed By: #### C MP, LIPID #### [facility] [address] [place] [address] Dr. Kenneth Sepulveda Chloride [Moles/Vol] 103 mmol/L Normal 98-107 [facility] Comment on above: Performed By: #### C MP, LIPID #### [facility] [address] [address] [address] Kenneth Sepulveda CO2 [Moles/Vol] 30.0 mmol/L Normal 22.0-30.0 [facility] Comment on above: Performed By: #### C MP, LIPID #### [facility] Laboratory [address] [place] [address] Dr. Kenneth Sepulveda Creatinine [Mass/Vol] 1.45 mg/dL Critically high 0.66-1.25 [facility] Comment on above: Performed By: #### C MP, LIPID #### [facility] Laboratory [address] [address] [address] Kenneth Sepulveda EGFR-AF MOLDOVAN 56 mL/min/1.73m2 Critically low >=60 [facility] Comment on above: Performed By: #### C MP, LIPID #### [facility] Laboratory [address] [address] [address] Kenneth Sepulveda EGFR-NON AF MOLDOVAN 47 mL/min/1.73m2 Critically low >=60 [facility] Comment on above: Performed By: #### C MP, LIPID #### [facility] Laboratory [address] [place] [address] Dr. Kenneth Sepulveda Globulin (S) [Mass/Vol] 3.4 g/dL Normal [facility] Comment on above: Performed By: #### C MP, LIPID #### [facility] Laboratory [address] [place] [address] Dr. Kenneth Sepulveda Glucose [Mass/Vol] 83 mg/dL Normal 74-106 [facility] Comment on above: Performed By: #### C MP, LIPID #### [facility] Laboratory [address] [place] [address] Dr. Kenneth Sepulveda Potassium [Moles/Vol] 3.8 mmol/L Normal 3.4-5.0 [facility] Comment on above: Performed By: #### C MP, LIPID #### [facility] Laboratory [address] [place] [address] Dr. Kenneth Sepulveda Protein [Mass/Vol] 7.1 g/dL Normal 6.1-8.2 [facility] Comment on above: Performed By: #### C MP, LIPID #### [facility] Laboratory [address] [place] [address] Dr. Kenneth Sepulveda Sodium [Moles/Vol] 139 mmol/L Normal 137-145 [facility] Comment on above: Performed By: #### C MP, LIPID #### [facility] Laboratory [address] [place] [address] Dr. Kenneth Sepulveda Urea nitrogen [Mass/Vol] 26.0 mg/dL Critically high 9.0-20.0 [facility] Comment on above: Performed By: #### C MP, LIPID #### [facility] Laboratory [address], [place] [address] Dr. Kenneth Sepulveda Urea nitrogen/Creatinine [Mass ratio] 17.9 mg/mg Normal [facility] Comment on above: Performed By: #### C MP, LIPID #### [facility] Laboratory [address] [place], [place] [address] Dr. Kenneth Sepulveda BASIC METABOLIC PANELon 05 Calcium [Mass/Vol] 9.1 mg/dL Normal 8.6-10.3 [facility] Comment on above: Order Comment: No: D o not add to previous draw Performed By: #### 3 0477, [id number] #### [facility] [address] [place] [address], [place] Chloride [Moles/Vol] 100 mmol/L Normal 98-107 [facility] Comment on above: Order Comment: No: D o not add to previous draw Performed By: #### 3 7, [id number] #### [facility] [address] [place] [address], [place] CO2 [Moles/Vol] 25 mmol/L Normal 21-31 [facility] Comment on above: Order Comment: No: D o not add to previous draw Performed By: #### 3 0477, [id number] #### [facility] [address] [place] [address], [place] Creatinine [Mass/Vol] 1.45 mg/dL High 0.70-1.30 [facility] Comment on above: Order Comment: No: D o not add to previous draw Performed By: #### 3 0477, [id number] #### [facility] [address] [place] [address], [place] eGFR- 57 ml/min/1.73sq m Abnormal >60 [facility] Comment on above: Order Comment: No: D o not add to previous draw Result Comment: Calc ulation may not be valid for patients over 70 years Performed By: #### 3 476, [id number] #### [facility] [address] [place] [address], [place] eGFR- non- 47 ml/min/1.73sq m Abnormal >60 [facility] Comment on above: Order Comment: No: D o not add to previous draw Result Comment: Calc ulation may not be valid for patients over 70 years Performed By: #### 3 476, 94065 #### [facility] [address] [place] [address], [place] Glucose [Mass/Vol] 93 mg/dL Normal 70-100 [facility] Comment on above: Order Comment: No: D o not add to previous draw Performed By: #### 3 476, 62109 #### [facility] [address] [place] [address], [place] Potassium [Moles/Vol] 4.1 mmol/L Normal 3.5-5.1 [facility] Comment on above: Order Comment: No: D o not add to previous draw Performed By: #### 3 476, [id number] #### [facility] [address] [place] [address], [place] Sodium [Moles/Vol] 132 mmol/L Low 136-145 [facility] Comment on above: Order Comment: No: D o not add to previous draw Performed By: #### 3 476, [id number] #### [facility] [address] [place] [address], [place] Urea nitrogen [Mass/Vol] 27 mg/dL High 7-25 [facility] Comment on above: Order Comment: No: D o not add to previous draw Performed By: #### 3 476, [id number] #### [facility] [address] [place] [address], [place] CBC COMPLETE BLOOD COUNTon 0 5-25-2021 Erythrocyte distribution width (RBC) [Ratio] 12.9 % Normal 11.5-15.0 [facility] Comment on above: Order Comment: No: D o not add to previous draw Performed By: #### 8 [id number] #### [facility] [address] [place] [address], [facility] Hematocrit (Bld) [Volume fraction] 39.8 % Normal 39.0-50.0 [facility] Comment on above: Order Comment: No: D o not add to previous draw Performed By: #### 8 [id number] #### [facility] [address] [place] [id number], [facility] Hemoglobin (Bld) [Mass/Vol] 13.3 g/dL Normal 13.0-17.0 [facility] Comment on above: Order Comment: No: D o not add to previous draw Performed By: #### 8 [id number] #### [facility] [address] [place] [address], [facility] MCH (RBC) [Entitic mass] 29.8 pg Normal 27.0-33.0 [facility] Comment on above: Order Comment: No: D o not add to previous draw Performed By: #### 8 5123 #### [facility] [address] [place] [address], [facility] MCHC (RBC) [Mass/Vol] 33.4 g/dL Normal 32.0-35.0 [facility] Comment on above: Order Comment: No: D o not add to previous draw Performed By: #### 8 [id number] #### [facility] [address] [place] [address], [facility] MCV (RBC) [Entitic vol] 89.0 fL Normal 82.0-98.0 [facility] Comment on above: Order Comment: No: D o not add to previous draw Performed By: #### 8 [id number] #### [facility] [address] Nucleated RBC/100 WBC (Bld) [Ratio] 0 % Normal 0-0 [facility] Comment on above: Order Comment: No: D o not add to previous draw Performed By: #### 8 5123 #### [facility] [address] [place] [address], [facility] PLAT CNT 226 10*3/uL Normal 150-400 [facility] Comment on above: Order Comment: No: D o not add to previous draw Performed By: #### 8 5123 #### [facility] [address] [place] [address], [facility] RBC (Bld) [#/Vol] 4.47 10*6/uL Normal 4.20-5.70 [facility] Comment on above: Order Comment: No: D o not add to previous draw Performed By: #### 8 [id number] #### [facility] [address] WBC (Bld) [#/Vol] 9.70 10*3/uL Normal 4.00-10.60 [facility] Comment on above: Order Comment: No: D o not add to previous draw Performed By: #### 8 [id number] #### [facility] [address] Cardiovascular Lab Reporton 11-03-2020 Cardiovascular Lab Report [facility] Patient Name: [facility] Siddharth Bryan MR #: [id number] Department of Physician: Julieta Galvan M.D. Division of Service Date: 11/02/2020 Cardiology Birthdate: 1940 Adult Cardiovascular Room #: 3AB [id number] [address] Cardiovascular Laboratory Report CLINICAL PRESENTATION: The patient [...] High-intensity statin therapy. 5. Outpatient followup with [facility]. 6. Referral to cardiac rehabilitation. PROCEDURES: [...] infiltrated over the right radial artery. A 6-[place]ish Terumo Glidesheath slender was placed in right radial artery. The radial anti-vasospasm cocktail, nitroglycerin 200 mcg and verapamil 2.5 mg were administered through the sheath. All catheter exchanges were made over the Magic Torque guidewire. A 6-Polish JR5 used to engage the right coronary artery. A 6-[place]ish JL3.5 was used to engage the left main coronary artery. Coronary angiograms performed in multiple orthogonal views using hand injection of contrast. At this time, it was apparent that the mid LAD had 80% stenosis. I elected to proceed with PCI. Heparin anticoagulation was used for this procedure. ACT was maintained greater than 200 seconds. A Asante Solutionstronic EBU 4.0 guide was engaged in left [...] P/Evelyn Partida M.D. Date Trans: 11/02/2020 10:36 P/chanlder [id number] cc: Cedric Carr M.D. [address] [place] [id number] Braeden Schaefer M.D. [address] [place] [address] Normal [facility] BASIC METABOLIC PANELon 05-2 Calcium [Mass/Vol] 9.2 mg/dL Normal 8.6-10.3 [facility] Comment on above: Order Comment: No: D o not add to previous draw Performed By: #### 0 0071, 20126, 62995 #### [facility] [address] [place] [address], [place] Chloride [Moles/Vol] 102 mmol/L Normal 98-107 [facility] Comment on above: Order Comment: No: D o not add to previous draw Performed By: #### 0 0071, 08950, 66198 #### [facility] [address] [place] [address], [place] CO2 [Moles/Vol] 24 mmol/L Normal 21-31 [facility] Comment on above: Order Comment: No: D o not add to previous draw Performed By: #### 0 0071, 03341, 95586 #### [facility] [address] [place] [address], [place] Creatinine [Mass/Vol] 1.44 mg/dL High 0.70-1.30 [facility] Comment on above: Order Comment: No: D o not add to previous draw Performed By: #### 0 0071, 32392, 99833 #### [facility] [address] [place] [address], [place] eGFR- 57 ml/min/1.73sq m Abnormal >60 [facility] Comment on above: Order Comment: No: D o not add to previous draw Result Comment: Calc ulation may not be valid for patients over 70 years Performed By: #### 0 0071, 90315, 86056 #### [facility] [address] [place] [address], [place] eGFR- non- 47 ml/min/1.73sq m Abnormal >60 [facility] Comment on above: Order Comment: No: D o not add to previous draw Result Comment: Calc ulation may not be valid for patients over 70 years Performed By: #### 0 0071, 93244, 48405 #### [facility] [address] [place] [address], [place] Glucose [Mass/Vol] 90 mg/dL Normal 70-100 [facility] Comment on above: Order Comment: No: D o not add to previous draw Performed By: #### 0 0071, 78734, 02797 #### [facility] [address] [place] [address], [place] Potassium [Moles/Vol] 3.4 mmol/L Low 3.5-5.1 [facility] Comment on above: Order Comment: No: D o not add to previous draw Performed By: #### 0 0071, 35362, 84593 #### [facility] [address] [place] [address], [place] Sodium [Moles/Vol] 136 mmol/L Normal 136-145 [facility] Comment on above: Order Comment: No: D o not add to previous draw Performed By: #### 0 0071, 27022, 84227 #### [facility] [address] [place] [address], [place] Urea nitrogen [Mass/Vol] 21 mg/dL Normal 7-25 [facility] Comment on above: Order Comment: No: D o not add to previous draw Performed By: #### 0 0071, 46548, 93689 #### [facility] [address] [place] [address], [place] CBC COMPLETE BLOOD COUNTon 0 - Erythrocyte distribution width (RBC) [Ratio] 13.1 % Normal 11.5-15.0 [facility] Comment on above: Order Comment: No: D o not add to previous draw Performed By: #### 8 5123 #### [facility] [address] [place] [address], [facility] Hematocrit (Bld) [Volume fraction] 40.9 % Normal 39.0-50.0 [facility] Comment on above: Order Comment: No: D o not add to previous draw Performed By: #### 8 5123 #### [facility] [address] [place] [address], [facility] Hemoglobin (Bld) [Mass/Vol] 13.6 g/dL Normal 13.0-17.0 [facility] Comment on above: Order Comment: No: D o not add to previous draw Performed By: #### 8 5123 #### [facility] [address] [place] [address], [facility] MCH (RBC) [Entitic mass] 29.8 pg Normal 27.0-33.0 [facility] Comment on above: Order Comment: No: D o not add to previous draw Performed By: #### 8 5123 #### [facility] [address] [place] [address], [facility] MCHC (RBC) [Mass/Vol] 33.3 g/dL Normal 32.0-35.0 [facility] Comment on above: Order Comment: No: D o not add to previous draw Performed By: #### 8 5123 #### [facility] [address] [place] [address], [facility] MCV (RBC) [Entitic vol] 89.7 fL Normal 82.0-98.0 [facility] Comment on above: Order Comment: No: D o not add to previous draw Performed By: #### 8 5123 #### [facility] [address] [place] [address], [facility] Nucleated RBC/100 WBC (Bld) [Ratio] 0 % Normal 0-0 [facility] Comment on above: Order Comment: No: D o not add to previous draw Performed By: #### 8 5123 #### [facility] [address] [place] [address], [facility] PLAT CNT 217 10*3/uL Normal 150-400 [facility] Comment on above: Order Comment: No: D o not add to previous draw Performed By: #### 8 5123 #### [facility] [address] [place] [address], [facility] RBC (Bld) [#/Vol] 4.56 10*6/uL Normal 4.20-5.70 [facility] Comment on above: Order Comment: No: D o not add to previous draw Performed By: #### 8 5123 #### [facility] [address] [facility] [place] [address], [facility] WBC (Bld) [#/Vol] 7.38 10*3/uL Normal 4.00-10.60 [facility] Comment on above: Order Comment: No: D o not add to previous draw Performed By: #### 8 5123 #### [facility] [address] [facility]. [address] MAGNESIUM BLOODon 11-02-2020 Magnesium [Mass/Vol] 1.6 mg/dL Low 1.9-2.7 [facility] Comment on above: Order Comment: No: D o not add to previous draw Performed By: #### 0 0071, 88161, 88209 #### [facility] [address] [facility]. [address] POC GLUCOSE LABon 11-02-2020 Glucose [Mass/Vol] 92 mg/dL Normal 70-100 [facility] Comment on above: Performed By: #### 8 5123 #### [facility] [address] [facility] [place] [address], [facility] TROPONIN-Ion 11-02-2020 Troponin I.cardiac [Mass/Vol] 0.21 ng/mL Critically high 0.00-0.04 [facility] Comment on above: Order Comment: No: D o not add to previous draw Result Comment: M-HI EVIOUS CRITICAL RESULT REFERENCE RANGES: 0.00 - 0.04 ng/ml NORMAL 0.05 - 0.50 ng/ml INDETERMINATE > 0.50 ng/ml CONSISTENT WITH AN M.I. Performed By: #### 0 0071, 43305, 71835 #### [facility] [address] UFH HEPARIN ASSAYon 11-03-19 UNFRACTIONATED HEPARIN 0.91 IU/mL Critically high 0.30-0.70 [facility] Comment on above: Result Comment: Fennimore roxaban and Apixaban will interfere with the anti Xa assay used to monitor UFH and LMWH. Results called. Accurately read back by Stephanie Moore RN at 1217 Performed By: #### 3 1522, 57086, 24681, 91614 #### [facility] [address] [facility] [address] UNFRACTIONATED HEPARIN 0.75 IU/mL High 0.30-0.70 [facility] Comment on above: Result Comment: Gaby roxaban and Apixaban will interfere with the anti Xa assay used to monitor UFH and LMWH. Performed By: #### 8 5123 #### [facility] [address] [facility]. [address] APTTon 11-01-2020 aPTT Coag (Bld) [Time] 28.5 s Normal 25.0-35.0 [facility] Comment on above: Order Comment: No: D [...] THIS PURPOSE. Performed By: #### 3 0477, 49519 #### [facility] [address] [place] [address], [facility] BASIC METABOLIC PANELon 05-2 3-2021 Calcium [Mass/Vol] 9.5 mg/dL Normal 8.6-10.3 [facility] Comment on above: Order Comment: No: D o not add to previous draw Performed By: #### 3 7, 88975 #### [facility] [address] [place] [address], [place] Chloride [Moles/Vol] 102 mmol/L Normal 98-107 [facility] Comment on above: Order Comment: No: D o not add to previous draw Performed By: #### 3 476, 48213 #### [facility] [address] [place] [address], [place] CO2 [Moles/Vol] 27 mmol/L Normal 21-31 [facility] Comment on above: Order Comment: No: D o not add to previous draw Performed By: #### 3 7, 35391 #### [facility] [address] [place] [address], [place] Creatinine [Mass/Vol] 1.39 mg/dL High 0.70-1.30 [facility] Comment on above: Order Comment: No: D o not add to previous draw Performed By: #### 3 7, 35096 #### [facility] [address] [place] [address], [facility] eGFR- 59 ml/min/1.73sq m Abnormal >60 [facility] Comment on above: Order Comment: No: D o not add to previous draw Result Comment: Calc ulation may not be valid for patients over 70 years Performed By: #### 3 7, 55953 #### [facility] [address] [place] [address], [place] eGFR- non- 49 ml/min/1.73sq m Abnormal >60 [facility] Comment on above: Order Comment: No: D o not add to previous draw Result Comment: Calc ulation may not be valid for patients over 70 years Performed By: #### 3 476, 59351 #### [facility] [address] [place] [address], [place] Glucose [Mass/Vol] 93 mg/dL Normal 70-100 [facility] Comment on above: Order Comment: No: D o not add to previous draw Performed By: #### 3 476, 03973 #### [facility] [address] [place] [address], [place] Potassium [Moles/Vol] 3.8 mmol/L Normal 3.5-5.1 [facility] Comment on above: Order Comment: No: D o not add to previous draw Performed By: #### 3 476, 79637 #### [facility] [address] [place] [address], [place] Sodium [Moles/Vol] 138 mmol/L Normal 136-145 [facility] Comment on above: Order Comment: No: D o not add to previous draw Performed By: #### 3 476, 19243 #### [facility] [address] [place] [address], [place] Urea nitrogen [Mass/Vol] 20 mg/dL Normal 7-25 [facility] Comment on above: Order Comment: No: D o not add to previous draw Performed By: #### 3 476, 98242 #### [facility] [address] [place] [address], [place] CBC COMPLETE BLOOD COUNTon 0 - Erythrocyte distribution width (RBC) [Ratio] 12.9 % Normal 11.5-15.0 [facility] Comment on above: Order Comment: No: D o not add to previous draw Performed By: #### 8 5123 #### [facility] [address] [place] [address], [place] Hematocrit (Bld) [Volume fraction] 41.9 % Normal 39.0-50.0 [facility] Comment on above: Order Comment: No: D o not add to previous draw Performed By: #### 8 5123 #### [facility] [address] [place] [address], [facility] Hemoglobin (Bld) [Mass/Vol] 13.8 g/dL Normal 13.0-17.0 [facility] Comment on above: Order Comment: No: D o not add to previous draw Performed By: #### 8 5123 #### [facility] [address] [place] [address], [facility] MCH (RBC) [Entitic mass] 30.0 pg Normal 27.0-33.0 [facility] Comment on above: Order Comment: No: D o not add to previous draw Performed By: #### 8 5123 #### [facility] [address] [place] [address], [facility] MCHC (RBC) [Mass/Vol] 32.9 g/dL Normal 32.0-35.0 [facility] Comment on above: Order Comment: No: D o not add to previous draw Performed By: #### 8 5123 #### [facility] [address] [place] [address], [facility] MCV (RBC) [Entitic vol] 91.1 fL Normal 82.0-98.0 [facility] Comment on above: Order Comment: No: D o not add to previous draw Performed By: #### 8 5123 #### [facility] [address] [place] [id number], [facility] Nucleated RBC/100 WBC (Bld) [Ratio] 0 % Normal 0-0 [facility] Comment on above: Order Comment: No: D o not add to previous draw Performed By: #### 8 5123 #### [facility] [address] [place] [address], [facility] PLAT CNT 224 10*3/uL Normal 150-400 [facility] Comment on above: Order Comment: No: D o not add to previous draw Performed By: #### 8 5123 #### [facility] [address] [place] [address], [facility] RBC (Bld) [#/Vol] 4.60 10*6/uL Normal 4.20-5.70 [facility] Comment on above: Order Comment: No: D o not add to previous draw Performed By: #### 8 5123 #### [facility] [address] [place] [address], [facility] WBC (Bld) [#/Vol] 8.65 10*3/uL Normal 4.00-10.60 [facility] Comment on above: Order Comment: No: D o not add to previous draw Performed By: #### 8 5123 #### [facility] [address] [place] [address], [facility] FREE T3on 11-01-2020 Free T3 [Mass/Vol] 2.8 pg/mL Normal 2.5-3.9 [facility] Comment on above: Order Comment: Yes: Add to Previous draw if able Performed By: #### 3 0477, 03339 #### [facility] [address] [place] [id number], [facility] FREE T4on 11-01-2020 Free T4 [Mass/Vol] 0.80 ng/dL Normal 0.71-1.85 [facility] Comment on above: Order Comment: Yes: Add to Previous draw if able Performed By: #### 3 0477, 14867 #### [facility] [address] [place] [address], [facility] HEMOGLOBIN A1Con 11-01-2020 Glucose [Moles/Vol] 114 mmol/L Normal [facility] Comment on above: Order Comment: Yes: Add to Previous draw if able Performed By: #### 3 0477, 91458 #### [facility] [address] [place] [address], [place] HbA1c (Bld) [Mass fraction] 5.6 % Normal 4.0-6.0 [facility] Comment on above: Order Comment: Yes: Add to Previous draw if able Performed By: #### 3 476, 66891 #### [facility] [address] [place] [address], [facility] LIPID PROFILEon 11-01-2020 Cholesterol [Mass/Vol] 173 mg/dL Normal 120-200 [facility] Comment on above: Result Comment: CHOL ESTEROL REFERENCE RANGE: 20 YEARS AND OLDER CARDIOVASCULAR RISK Less than 200 mg/dl Low Risk 200 to 239 mg/dl Borderline Risk 240 mg/dl and greater High Risk Performed By: #### 3 476, 09386 #### [facility] [address] [facility] [place] [address], [facility] Cholesterol in HDL [Mass/Vol] 44 mg/dL Normal 23-92 [facility] Comment on above: Result Comment: Slig ht variation in normal range could be due to gender and/or age. HDL CHOLESTEROL REFERENCE RANGE: 20 years and older Cardiovascular Risk > or =60 mg/dL Desirable 40 TO 59 mg/dL Low Risk <40 mg/dL High Risk Performed By: #### 3 476, 58713 #### [facility] [address] [facility] [place] [address], [facility] Cholesterol in LDL [Mass/Vol] 115 mg/dL Normal 0-130 [facility] Comment on above: Result Comment: LDL IS A CALCULATION LDL IS ONLY VALID IF THE TRIG IS LESS THAN 400. Performed By: #### 3 476, 70254 #### [facility] [address] [place] [address], [facility] Cholesterol.total/Ch olesterol in HDL [Mass ratio] 3.9 {ratio} Normal 0.0-4.5 [facility] Comment on above: Performed By: #### 3 476, 45229 #### [facility] [address] [place] [address], [place] NON-HDL CHOLESTEROL 129 mg/dL Normal [facility] Comment on above: Performed By: #### 3 476, 03132 #### [facility] [address] [place] [address], [facility] Triglyceride [Mass/Vol] 70 mg/dL Normal 40-149 [facility] Comment on above: Result Comment: TRIG LYCERIDE REFERENCE RANGE: 20 YEARS AND OLDER CARDIOVASCULAR RISK LESS THAN 150 mg/dl LOW RISK 150 TO 199 mg/dl BORDERLINE RISK 200 mg/dl AND GREATER HIGH RISK Performed By: #### 3 0477, 13691 #### [facility] [address] [place] [address], [facility] VLDL CHOL 14 mg/dL Normal 0-40 [facility] Comment on above: Performed By: #### 3 0477, 79255 #### [facility] [address] MAGNESIUM BLOODon 11-01-2020 Magnesium [Mass/Vol] 2.6 mg/dL Normal 1.9-2.7 [facility] Comment on above: Order Comment: No: D o not add to previous draw Performed By: #### 3 0477, 61444 #### [facility] [address] [place] [address], [facility] PHOSPHORUS BLOODon Phosphate [Mass/Vol] 2.9 mg/dL Normal 2.5-5.0 [facility] Comment on above: Order Comment: No: D o not add to previous draw Performed By: #### 3 0477, 66630 #### [facility] [address] PROCALCITONINon 11-01-2020 PROCALCITONIN 0.03 ng/mL Normal 0.00-0.10 The [facility] Comment on above: Order Comment: No: D [...] PCT<0.5ng/mL Performed By: #### 8 5123 #### [facility] [address] TROPONIN-Ion 11-01-2020 Troponin I.cardiac [Mass/Vol] 0.39 ng/mL Critically high 0.00-0.04 [facility] Comment on above: Order Comment: No: D o not add to previous draw Result Comment: M-HI EVIOUS CRITICAL RESULT REFERENCE RANGES: 0.00 - 0.04 ng/ml NORMAL 0.05 - 0.50 ng/ml INDETERMINATE > 0.50 ng/ml CONSISTENT WITH AN M.I. Performed By: #### 3 0477, 28536 #### [facility] [address] [place] [address], [facility] UFH HEPARIN ASSAYon 11-02-19 UNFRACTIONATED HEPARIN 0.82 IU/mL High 0.30-0.70 [facility] Comment on above: Result Comment: Fenn[place] roxaban and Apixaban will interfere with the anti Xa assay used to monitor UFH and LMWH. Performed By: #### 3 1522, 15932, 37744, 38439 #### [facility] [address] [place] [address], [facility] UNFRACTIONATED HEPARIN 0.73 IU/mL High 0.30-0.70 [facility] Comment on above: Result Comment: Fenn[place] roxaban and Apixaban will interfere with the anti Xa assay used to monitor UFH and LMWH. Performed By: #### 3 1522, 35786, 61995, 59108 #### [facility] [address] [facility] [place] [address], [facility] UNFRACTIONATED HEPARIN 0.95 IU/mL Critically high 0.30-0.70 [facility] Comment on above: Result Comment: Gaby roxaban and Apixaban will interfere with the anti Xa assay used to monitor UFH and LMWH. RESULTS CHECKED AND CALLED. ACCURATELY READ BACK BY THERESA SANTO RN AT 0540 Performed By: #### 8 5123 #### [facility] [address] [facility]. [address] UNFRACTIONATED HEPARIN <0.10 Critically low 0.30-0.70 [facility] Comment on above: Result Comment: Fenn[place] roxaban and Apixaban will interfere with the anti Xa assay used to monitor UFH and LMWH. Results called. Accurately read back by Theresa Santo RN, CVU 3A patient's nurse, at 2316, 31-Oct-2020. Performed By: #### 3 0477, 69399 #### [facility] [address] [facility]. [address] BNP (B-TYPE NATRIURETIC PEPT JOYCELYN)on 10-31-2020 Natriuretic peptide B (Bld) [Mass/Vol] 345 pg/mL High 0-100 [facility] Comment on above: Order Comment: No: D o not add to previous draw Result Comment: Give n the appropriate clinical setting a BNP result of >100 pg/mL indicates congestive heart failure. Performed By: #### 8 5123 #### [facility] [address] [facility] [place] [address], [facility] CBC W/DIFFon 10-31-2020 ABS IMM GRANS 0.0 10*3/uL Normal 0.0-0.2 The [facility] Comment on above: Order Comment: No: D o not add to previous draw Performed By: #### 8 5123 #### [facility] [address] [place] [address], [facility] ABS NEUTROPHILS 4.6 10*3/uL Normal 1.6-7.[address] [facility] Comment on above: Order Comment: No: D o not add to previous draw Performed By: #### 8 5123 #### [facility] [address] [place] [address], [facility] Basophils (Bld) [#/Vol] 0.0 10*3/uL Normal 0.0-0.2 [facility] Comment on above: Order Comment: No: D o not add to previous draw Performed By: #### 8 5123 #### [facility] [address] [place] [address], [facility] Basophils/100 WBC (Bld) 0.6 % Normal 0.0-1.0 [facility] Comment on above: Order Comment: No: D o not add to previous draw Performed By: #### 8 5123 #### [facility] [address] [place] [address], [facility] Eosinophils (Bld) [#/Vol] 0.1 10*3/uL Normal 0.0-0.5 [facility] Comment on above: Order Comment: No: D o not add to previous draw Performed By: #### 8 5123 #### [facility] [address] [place] [address], [place] Eosinophils/100 WBC (Bld) 2.0 % Normal 0.0-6.0 [facility] Comment on above: Order Comment: No: D o not add to previous draw Performed By: #### 8 5123 #### [facility] [address] [place] [address], [place] Erythrocyte distribution width (RBC) [Ratio] 13.1 % Normal 11.5-15.0 [facility] Comment on above: Order Comment: No: D o not add to previous draw Performed By: #### 8 5123 #### [facility] [address] [place] [id number], [facility] Hematocrit (Bld) [Volume fraction] 42.5 % Normal 39.0-50.0 [facility] Comment on above: Order Comment: No: D o not add to previous draw Performed By: #### 8 5123 #### [facility] [address] [place] [address], [facility] Hemoglobin (Bld) [Mass/Vol] 14.4 g/dL Normal 13.0-17.0 [facility] Comment on above: Order Comment: No: D o not add to previous draw Performed By: #### 8 5123 #### [facility] [address] [place] [address], [facility] IMMATURE GRANS 0.3 % Normal 0.0-1.0 [facility] Comment on above: Order Comment: No: D o not add to previous draw Performed By: #### 8 5123 #### [facility] [address] [place] [address], [facility] Lymphocytes (Bld) [#/Vol] 1.9 10*3/uL Normal 1.2-4.0 [facility] Comment on above: Order Comment: No: D o not add to previous draw Performed By: #### 8 5123 #### [facility] [address] [place] [id number], [place] Lymphocytes/100 WBC (Bld) 26.8 % Normal 20.0-45.0 [facility] Comment on above: Order Comment: No: D o not add to previous draw Performed By: #### 8 5123 #### [facility] [address] [place] [id number], [facility] MCH (RBC) [Entitic mass] 30.1 pg Normal 27.0-33.0 [facility] Comment on above: Order Comment: No: D o not add to previous draw Performed By: #### 8 [id number] #### [facility] [address] [place] [id number], [facility] MCHC (RBC) [Mass/Vol] 33.9 g/dL Normal 32.0-35.0 [facility] Comment on above: Order Comment: No: D o not add to previous draw Performed By: #### 8 [id number] #### [facility] [address] [place] [address], [facility] MCV (RBC) [Entitic vol] 88.7 fL Normal 82.0-98.0 [facility] Comment on above: Order Comment: No: D o not add to previous draw Performed By: #### 8 [id number] #### [facility] [address] [place] [id number], [facility] Monocytes (Bld) [#/Vol] 0.4 10*3/uL Normal 0.1-1.0 [facility] Comment on above: Order Comment: No: D o not add to previous draw Performed By: #### 8 [id number] #### [facility] [address] [place] [address], [facility] MONOS 6.0 % Normal 5.0-12.0 [facility] Comment on above: Order Comment: No: D o not add to previous draw Performed By: #### 8 [id number] #### [facility] [address] [place] [id number], [facility] Neutrophils/100 WBC (Bld) 64.3 % Normal 40.0-72.0 [facility] Comment on above: Order Comment: No: D o not add to previous draw Performed By: #### 8 [id number] #### [facility] [address] [place] [id number], [facility] Nucleated RBC/100 WBC (Bld) [Ratio] 0 % Normal 0-0 The [facility] Comment on above: Order Comment: No: D o not add to previous draw Performed By: #### 8 5123 #### [facility] [address] [place] [address], [facility] PLAT CNT 245 10*3/uL Normal 150-400 The [facility] Comment on above: Order Comment: No: D o not add to previous draw Performed By: #### 8 5123 #### [facility] [address] [place] [address], [facility] RBC (Bld) [#/Vol] 4.79 10*6/uL Normal 4.20-5.70 The [facility] Comment on above: Order Comment: No: D o not add to previous draw Performed By: #### 8 5123 #### [facility] [address] [place] [address], [facility] WBC (Bld) [#/Vol] 7.16 10*3/uL Normal 4.00-10.60 [facility] Comment on above: Order Comment: No: D o not add to previous draw Performed By: #### 8 5123 #### [facility] [address] [facility] [place] [address], [facility] COMP METABOLIC PANELon 10-31 Albumin [Mass/Vol] 4.0 g/dL Normal 3.5-5.7 [facility] Comment on above: Order Comment: No: D o not add to previous draw Performed By: #### 3 1522, 86748, 90415, 96494 #### [facility] [address] [place] [address], [facility] ALKALINE PHOSPH 47 IU/L Normal 34-104 The [facility] Comment on above: Order Comment: No: D o not add to previous draw Performed By: #### 3 1522, 27206, 34884, 97237 #### [facility] [address] [place] [address], [place] ALT [Catalytic activity/Vol] 11 U/L Normal 7-52 The [facility] Comment on above: Order Comment: No: D o not add to previous draw Performed By: #### 3 1522, 46279, 53853, 49702 #### [facility] [address] [place] [address], [place] AST [Catalytic activity/Vol] 17 U/L Normal 13-39 [facility] Comment on above: Order Comment: No: D o not add to previous draw Performed By: #### 3 1522, 05300, 52775, 89890 #### [facility] [address] [place] [address], [place] Bilirubin [Mass/Vol] 0.4 mg/dL Normal 0.3-1.0 [facility] Comment on above: Order Comment: No: D o not add to previous draw Performed By: #### 3 1522, 81949, 39748, 26347 #### [facility] [address] [place] [address], [place] Calcium [Mass/Vol] 9.6 mg/dL Normal 8.6-10.3 [facility] Comment on above: Order Comment: No: D o not add to previous draw Performed By: #### 3 1522, 65949, 24509, 55480 #### [facility] [address] [place] [address], [place] Chloride [Moles/Vol] 100 mmol/L Normal 98-107 [facility] Comment on above: Order Comment: No: D o not add to previous draw Performed By: #### 3 1522, 93558, 68273, 36839 #### [facility] [address] [place] [address], [place] CO2 [Moles/Vol] 30 mmol/L Normal 21-31 [facility] Comment on above: Order Comment: No: D o not add to previous draw Performed By: #### 3 1522, 73017, 60434, 26503 #### [facility] [address] [place] [address], [place] Creatinine [Mass/Vol] 1.37 mg/dL High 0.70-1.30 [facility] Comment on above: Order Comment: No: D o not add to previous draw Performed By: #### 3 1522, 22479, 73038, 37085 #### [facility] [address] [place] [address], [place] eGFR- 60 ml/min/1.73sq m Abnormal >60 [facility] Comment on above: Order Comment: No: D o not add to previous draw Result Comment: Calc ulation may not be valid for patients over 70 years Performed By: #### 3 1522, 83109, 14801, 74702 #### [facility] [address] [place] [address], [place] eGFR- non- 50 ml/min/1.73sq m Abnormal >60 [facility] Comment on above: Order Comment: No: D o not add to previous draw Result Comment: Calc ulation may not be valid for patients over 70 years Performed By: #### 3 1522, 76790, 49391, 37812 #### [facility] [address] [place] [address], [place] Glucose [Mass/Vol] 99 mg/dL Normal 70-100 [facility] Comment on above: Order Comment: No: D o not add to previous draw Performed By: #### 3 1522, 45402, 67077, 98822 #### [facility] [address] [place] [address], [place] Potassium [Moles/Vol] 3.5 mmol/L Normal 3.5-5.1 [facility] Comment on above: Order Comment: No: D o not add to previous draw Performed By: #### 3 1522, 95999, 86780, 82821 #### [facility] [address] Protein [Mass/Vol] 6.8 g/dL Normal 6.0-8.3 The [facility] Comment on above: Order Comment: No: D o not add to previous draw Performed By: #### 3 1522, 20388, 72002, 82333 #### [facility] [address] [place] [id number], [facility] Sodium [Moles/Vol] 139 mmol/L Normal 136-145 [facility] Comment on above: Order Comment: No: D o not add to previous draw Performed By: #### 3 1522, 95255, 24509, 85472 #### [facility] [address] [place] [address], [facility] Urea nitrogen [Mass/Vol] 21 mg/dL Normal 7-25 [facility] Comment on above: Order Comment: No: D o not add to previous draw Performed By: #### 3 1522, 88481, 33705, 88095 #### [facility] [address] D DIMER TESTon 10-31-2020 D-DIMER TEST 0.64 mcg/mL FEU High 0.27-0.49 The [facility] Comment on above: Order Comment: No: D o not add to previous draw Result Comment: D-Di sarah values of less than 0.50 ug/ml (FEU) are considered to be a negative predictor of thrombosis. However, the D-Dimer result should be used in conjunction with pretest probability and should not be used alone to diagnose a thrombotic event. Performed By: #### 8 5123 #### [facility] [address] [place] [address], [facility] MAGNESIUM BLOODon 10-31-2020 Magnesium [Mass/Vol] 1.5 mg/dL Low 1.9-2.7 [facility] Comment on above: Order Comment: No: D o not add to previous draw Performed By: #### 3 1522, 54065, 99139, 77642 #### [facility] [address] [facility]. [address] TROPONIN-Ion 10-31-2020 Troponin I.cardiac [Mass/Vol] 0.57 ng/mL Critically high 0.00-0.04 [facility] Comment on above: Order Comment: No: D o not add to previous draw Result Comment: M-CR ITICAL RESULT(S) REVIEWED, CALLED TO AND READ BACK BY FELECIA CANCHOLA @[facility] 10.31.20 REFERENCE RANGES: 0.00 - 0.04 ng/ml NORMAL 0.05 - 0.50 ng/ml INDETERMINATE > 0.50 ng/ml CONSISTENT WITH AN M.I. Performed By: #### 3 1522, 49072, 49156, 76587 #### [facility] [address] TSH3on 10-31-2020 TSH 3RD GENERATION 6.84 uIU/mL High 0.34-5.60 [facility] Comment on above: Order Comment: No: D o not add to previous draw Performed By: #### 3 1522, 51974, 54407, 10463 #### [facility] [address] CBC Auto Differentialon 04-12 Basophils (Bld) [#/Vol] 0.00 10*3/uL [place], [place] Basophils/100 WBC (Bld) 0 % 0 - 2 % [place] Differential Type YES [place] Eosinophils (Bld) [#/Vol] 0.20 10*3/uL [place] Eosinophils/100 WBC (Bld) 2 % 0 - 5 % [place] Erythrocyte distribution width (RBC) [Ratio] 13.8 % 12.1 - 15.2 % [place] Hematocrit (Bld) [Volume fraction] 42.1 % 41 - 53 % [place] Hemoglobin (Bld) [Mass/Vol] 14.3 g/dL 13.5 - 17.5 g/dL [place] Lymphocytes (Bld) [#/Vol] 2.60 10*3/uL [place] Lymphocytes/100 WBC (Bld) 35 % 13 - 44 % [place] MCH (RBC) [Entitic mass] 31.0 pg 26 - 34 pg [place] MCHC (RBC) [Mass/Vol] 33.9 g/dL 31 - 37 g/dL [place] MCV (RBC) [Entitic vol] 91.5 fL 80 - 100 fL [place] Monocytes (Bld) [#/Vol] 0.40 10*3/uL [place] Monocytes/100 WBC (Bld) 6 % 5 - 9 % [place] Platelet mean volume (Bld) [Entitic vol] NOT REPORTED 6 - 12 fL [place], [place] Platelets (Bld) [#/Vol] NOT REPORTED [place] Platelets (Bld) [#/Vol] 274 10*3/uL [place] RBC (Bld) [#/Vol] 4.60 10*6/uL 4.5 - 5.9 m/uL [place] RBC morphology finding Nom (Bld) NOT REPORTED [place] Segmented neutrophils/100 WBC (Bld) 57 % 39 - 75 % [place] Segs Absolute 4.20 [place] WBC (Bld) [#/Vol] 7.4 10*3/uL [place] WBC (Bld) [#/Vol] NOT REPORTED per 100 WBC [place] WBC Morphology NOT REPORTED [place] CBC with Diffon 04-30-2020 Abs. Basophil 0.00 k/uL Normal 0.0-0.2 [facility] Comment on above: Performed By: #### Z FAST, TSHX, MG, CP, CDP #### [facility] [address] [place] [address] Senior Front End Developer: Elio Pate MD #### VD25, LIPR #### [facility] [employer] [address] [place], [place] [phone] Senior Front End Developer: Jose Manuel Corona MD Abs.Neutrophil (Seg) 4.20 k/uL Normal 2.1-6.5 [facility] Comment on above: Performed By: #### Z FAST, TSHX, MG, CP, CDP #### [facility] [address] [place] [address] Senior Front End Developer: Elio Pate MD #### VD25, LIPR #### [place] [id number] Senior Front End Developer: Jose Manuel Corona MD Auto Diff Performed YES Normal [facility] Comment on above: Performed By: #### Z FAST, TSHX, MG, CP, CDP #### [facility] [address] [place] [phone] Senior Front End Developer: Elio Pate MD #### VD25, LIPR #### [place] [address] Senior Front End Developer: Jose Manuel Corona MD Basophils/100 WBC (Bld) 0 % Normal 0-2 [facility] Comment on above: Performed By: #### Z FAST, TSHX, MG, CP, CDP #### [facility] [address] [place] [phone] Senior Front End Developer: Elio Pate MD #### VD25, LIPR #### [address] [address] Senior Front End Developer: Jose Manuel Corona MD Eosinophils (Bld) [#/Vol] 0.20 10*3/uL Normal 0.0-0.4 [facility] Comment on above: Performed By: #### Z FAST, TSHX, MG, CP, CDP #### [facility] [address] [place] [phone] Senior Front End Developer: Elio Pate MD #### VD25, LIPR #### [address], [place] [phone] Senior Front End Developer: Jose Manuel Corona MD Eosinophils/100 WBC (Bld) 2 % Normal 0-5 [facility] Comment on above: Performed By: #### Z FAST, TSHX, MG, CP, CDP #### [facility] [address] [place], [place] [phone] Senior Front End Developer: Elio Pate MD #### VD25, LIPR #### [address] [phone] Senior Front End Developer: Jose Manuel Corona MD Erythrocyte distribution width (RBC) [Ratio] 13.8 % Normal 12.1-15.2 [facility] Comment on above: Performed By: #### Z FAST, TSHX, MG, CP, CDP #### [facility] [address] [place] [phone] Senior Front End Developer: Elio Pate MD #### VD25, LIPR #### [address] [phone] Senior Front End Developer: Jose Manuel Corona MD Hematocrit (Bld) [Volume fraction] 42.1 % Normal 41-53 [facility] Comment on above: Performed By: #### Z FAST, TSHX, MG, CP, CDP #### [facility] [address] [place] [phone] Senior Front End Developer: Elio Pate MD #### VD25, LIPR #### [address] [phone] Senior Front End Developer: Jose Manuel Corona MD Hemoglobin (Bld) [Mass/Vol] 14.3 g/dL Normal 13.5-17.5 [facility] Comment on above: Performed By: #### Z FAST, TSHX, MG, CP, CDP #### [facility] [address] [place] [address] Senior Front End Developer: Elio Pate MD #### VD25, LIPR #### [address] [phone] Senior Front End Developer: Jose Manuel Corona MD Lymphocytes (Bld) [#/Vol] 2.60 10*3/uL Normal 1.0-4.8 [facility] Comment on above: Performed By: #### Z FAST, TSHX, MG, CP, CDP #### [facility] [address] [place] [address] Senior Front End Developer: Elio Pate MD #### VD25, LIPR #### [address] [phone] Senior Front End Developer: Jose Manuel Corona MD Lymphocytes/100 WBC (Bld) 35 % Normal 13-44 [facility] Comment on above: Performed By: #### Z FAST, TSHX, MG, CP, CDP #### [facility] [address] [place] [phone] ( Senior Front End Developer: Elio Pate MD #### VD25, LIPR #### [address] [phone] Senior Front End Developer: Jose Manuel Corona MD MCH (RBC) [Entitic mass] 31.0 pg Normal 26-34 [facility] Comment on above: Performed By: #### Z FAST, TSHX, MG, CP, CDP #### [facility] [address] [place] [address] Senior Front End Developer: Elio Pate MD #### VD25, LIPR #### [place] [id number] [place] [address] Senior Front End Developer: Jose Manuel Corona MD MCHC (RBC) [Mass/Vol] 33.9 g/dL Normal 31-37 [facility] Comment on above: Performed By: #### Z FAST, TSHX, MG, CP, CDP #### [facility] [address] [place] [address] ( Senior Front End Developer: Elio Pate MD #### VD25, LIPR #### [place] [phone] Senior Front End Developer: Jose Manuel Corona MD MCV (RBC) [Entitic vol] 91.5 fL Normal 80-100 [facility] Comment on above: Performed By: #### Z FAST, TSHX, MG, CP, CDP #### [facility] [address] [place] [address] Senior Front End Developer: Elio Pate MD #### VD25, LIPR #### [place] [address] Senior Front End Developer: Jose Manuel Corona MD Monocytes (Bld) [#/Vol] 0.40 10*3/uL Normal 0.0-1.0 [facility] Comment on above: Performed By: #### Z FAST, TSHX, MG, CP, CDP #### [facility] [address] [place] [phone] ( Senior Front End Developer: Elio Pate MD #### VD25, LIPR #### [place] [address] Senior Front End Developer: Jose Manuel Corona MD Monocytes/100 WBC (Bld) 6 % Normal 5-9 [facility] Comment on above: Performed By: #### Z FAST, TSHX, MG, CP, CDP #### [facility] [address] [place] [phone] ( Senior Front End Developer: Elio Pate MD #### VD25, LIPR #### [place] [phone] Senior Front End Developer: Jose Manuel Corona MD Neutrophil (Seg) 57 % Normal 39-75 [facility] Comment on above: Performed By: #### Z FAST, TSHX, MG, CP, CDP #### [facility] [address] [place], [place] [phone] Senior Front End Developer: Elio Pate MD #### VD25, LIPR #### [address] [phone] Senior Front End Developer: Jose Manuel Corona MD Platelets (Bld) [#/Vol] 274 10*3/uL Normal 140-450 [facility] Comment on above: Performed By: #### Z FAST, TSHX, MG, CP, CDP #### [facility] [address] [place] [address] Senior Front End Developer: Elio Pate MD #### VD25, LIPR #### [address] [phone] Senior Front End Developer: Jose Manuel Corona MD RBC (Bld) [#/Vol] 4.60 10*6/uL Normal 4.5-5.9 [facility] Comment on above: Performed By: #### Z FAST, TSHX, MG, CP, CDP #### [facility] [address] [place] [address] Senior Front End Developer: Elio Pate MD #### VD25, LIPR #### [address] [phone] Senior Front End Developer: Jose Manuel Corona MD WBC (Bld) [#/Vol] 7.4 10*3/uL Normal 3.5-11.0 [facility] Comment on above: Performed By: #### Z FAST, TSHX, MG, CP, CDP #### [facility] [address] [place] [address] Senior Front End Developer: Elio Pate MD #### VD25, LIPR #### [address] [phone] Senior Front End Developer: Jose Manuel Corona MD Abs.Imm.Granulocyte NOT REPORTED Normal 0.00-0.30 [facility] Comment on above: Performed By: #### Z FAST, TSHX, MG, CP, CDP #### [facility] [address] [place], [place] [phone] Senior Front End Developer: Elio Pate MD #### VD25, LIPR #### [facility] [address] [place], [place] [phone] Senior Front End Developer: Jose Manuel Corona MD Immature granulocytes (Bld) [#/Vol] NOT REPORTED Normal 0 [facility] Comment on above: Performed By: #### Z FAST, TSHX, MG, CP, CDP #### [facility] [address] [place], [place] [phone] Senior Front End Developer: Elio Pate MD #### VD25, LIPR #### [address] [phone] Senior Front End Developer: Jose Manuel Corona MD NRBC Automated NOT REPORTED Normal [facility] Comment on above: Performed By: #### Z FAST, TSHX, MG, CP, CDP #### [facility] [address] [place], [place] [phone] Senior Front End Developer: Elio Pate MD #### VD25, LIPR #### [address] [phone] Senior Front End Developer: Jose Manuel Corona MD Platelet mean volume (Bld) [Entitic vol] NOT REPORTED Normal 6.0-12.0 [facility] Comment on above: Performed By: #### Z FAST, TSHX, MG, CP, CDP #### [facility] [address] [place], [place] [phone] Senior Front End Developer: Elio Pate MD #### VD25, LIPR #### [address] [phone] Senior Front End Developer: Jose Manuel Corona MD Platelets (Bld) [#/Vol] NOT REPORTED Normal [facility] Comment on above: Performed By: #### Z FAST, TSHX, MG, CP, CDP #### [facility] [address] [place], [place] [phone] Senior Front End Developer: Elio Pate MD #### VD25, LIPR #### [address] [phone] Senior Front End Developer: Jose Manuel Corona MD RBC morphology finding Nom (Bld) NOT REPORTED Normal [facility] Comment on above: Performed By: #### Z FAST, TSHX, MG, CP, CDP #### [facility] [address] [place], [place] [phone] Senior Front End Developer: Elio Pate MD #### VD25, LIPR #### [address] [phone] Senior Front End Developer: Jose Manuel Corona MD WBC Morphology NOT REPORTED Normal [facility] Comment on above: Performed By: #### Z FAST, TSHX, MG, CP, CDP #### [facility] [address] [place] [address] Senior Front End Developer: Elio Pate MD #### VD25, LIPR #### [address] [phone] Senior Front End Developer: Jose Manuel Corona MD Comp Metabolic Profon 2019 (cont.) Normal [facility] Comment on above: Result Comment: Aver age GFR for 70 or more years old: 75 mL/min/1.73sq m Chronic Kidney Disease: <60 mL/min/1.73sq m Kidney failure: <15 mL/min/1.73sq m eGFR calculated using average adult body mass. Additional eGFR calculator available at: http://www.[employer].com/multiple_crcl_2012.htm Performed By: #### Z FAST, TSHX, MG, CP, CDP #### [facility] [address] [place] [address] Senior Front End Developer: Elio Pate MD #### VD25, LIPR #### [place] [phone] [place], [place] [phone] Senior Front End Developer: Jose Manuel Corona MD Albumin [Mass/Vol] 4.4 g/dL Normal 3.5-5.2 [facility] Comment on above: Performed By: #### Z FAST, TSHX, MG, CP, CDP #### [facility] [address] [place], [place] [phone] Senior Front End Developer: Elio Pate MD #### VD25, LIPR #### [place] [phone] [place], [place] [phone] Senior Front End Developer: Jose Manuel Corona MD Alkaline Phos 61 U/L Normal 40-129 [facility] Comment on above: Performed By: #### Z FAST, TSHX, MG, CP, CDP #### [facility] [address] [place] [address] Senior Front End Developer: Elio Pate MD #### VD25, LIPR #### [address] [phone] Senior Front End Developer: Jose Manuel Corona MD ALT [Catalytic activity/Vol] 14 U/L Normal 5-41 [facility] Comment on above: Performed By: #### Z FAST, TSHX, MG, CP, CDP #### [facility] [address] [place] [address] Senior Front End Developer: Elio Pate MD #### VD25, LIPR #### [address] [phone] Senior Front End Developer: Jose Manuel Corona MD Anion gap [Moles/Vol] 10 mmol/L Normal 9-17 [facility] Comment on above: Performed By: #### Z FAST, TSHX, MG, CP, CDP #### [facility] [address] [place] [address] Senior Front End Developer: Elio Pate MD #### VD25, LIPR #### [address] [phone] Senior Front End Developer: Jose Manuel Corona MD AST [Catalytic activity/Vol] 17 U/L Normal <40 [facility] Comment on above: Performed By: #### Z FAST, TSHX, MG, CP, CDP #### [facility] [address] [place] [address] Senior Front End Developer: Elio Pate MD #### VD25, LIPR #### [address] [phone] Senior Front End Developer: Jose Manuel Corona MD Bilirubin Ql (U) 0.53 mg/dL Normal 0.30-1.20 [facility] Comment on above: Performed By: #### Z FAST, TSHX, MG, CP, CDP #### [facility] [address] [place] [phone] Senior Front End Developer: Elio Pate MD #### VD25, LIPR #### [address] [phone] Senior Front End Developer: Jose Manuel Corona MD BUN/CRE Ratio 18 Normal 9-20 [facility] Comment on above: Performed By: #### Z FAST, TSHX, MG, CP, CDP #### [facility] [address] [place] [phone] Senior Front End Developer: Elio Pate MD #### VD25, LIPR #### [address] [phone] Senior Front End Developer: Jose Manuel Corona MD Calcium [Mass/Vol] 11.1 mg/dL High 8.6-10.4 [facility] Comment on above: Performed By: #### Z FAST, TSHX, MG, CP, CDP #### [facility] [address] [place], [place] [phone] Senior Front End Developer: Elio Pate MD #### VD25, LIPR #### [place] [phone] [place], [place] [phone] Senior Front End Developer: Jose Manuel Corona MD Chloride [Moles/Vol] 101 mmol/L Normal 98-107 [facility] Comment on above: Performed By: #### Z FAST, TSHX, MG, CP, CDP #### [facility] [address] [place] [phone] ( Senior Front End Developer: Elio Pate MD #### VD25, LIPR #### [address] [address] Senior Front End Developer: Jose Manuel Corona MD CO2 [Moles/Vol] 30 mmol/L Normal 20-31 [facility] Comment on above: Performed By: #### Z FAST, TSHX, MG, CP, CDP #### [facility] [address] [place] [phone] ( Senior Front End Developer: Elio Pate MD #### VD25, LIPR #### [address] [address] Senior Front End Developer: Jose Manuel Corona MD Creatinine [Mass/Vol] 1.48 mg/dL High 0.70-1.20 [facility] Comment on above: Performed By: #### Z FAST, TSHX, MG, CP, CDP #### [facility] [address] [place] [phone] Senior Front End Developer: Elio Pate MD #### VD25, LIPR #### [address] [address] Senior Front End Developer: Jose Manuel Corona MD GFR, Amer 55 mL/min Low >60 [facility] Comment on above: Performed By: #### Z FAST, TSHX, MG, CP, CDP #### [facility] [address] [place] [phone] Senior Front End Developer: Elio Pate MD #### VD25, LIPR #### [facility] [address] [place], [place] [phone] Senior Front End Developer: Jose Manuel Corona MD GFR,non Amer 46 mL/min Low >60 [facility] Comment on above: Performed By: #### Z FAST, TSHX, MG, CP, CDP #### [facility] [address] [place], [place] [phone] Senior Front End Developer: Elio Pate MD #### VD25, LIPR #### [place] [address] [place], [place] [phone] Senior Front End Developer: Jose Manuel Corona MD Glucose [Mass/Vol] 89 mg/dL Normal 70-99 [facility] Comment on above: Performed By: #### Z FAST, TSHX, MG, CP, CDP #### [facility] [address] [place] [address] Senior Front End Developer: Elio Pate MD #### VD25, LIPR #### [facility] [address] [place], [place] 1973[address] Senior Front End Developer: Jose Manuel Corona MD Potassium [Moles/Vol] 3.8 mmol/L Normal 3.7-5.3 [facility] Comment on above: Performed By: #### Z FAST, TSHX, MG, CP, CDP #### [facility] [address] [place] [address] Senior Front End Developer: Elio Pate MD #### VD25, LIPR #### [place] [phone] [place], [place] [phone] Senior Front End Developer: Jose Manuel Corona MD Protein [Mass/Vol] 7.4 g/dL Normal 6.4-8.3 [facility] Comment on above: Performed By: #### Z FAST, TSHX, MG, CP, CDP #### [facility] [address] [place] [address] Senior Front End Developer: Elio Pate MD #### VD25, LIPR #### [address] [address] Senior Front End Developer: Jose Manuel Corona MD Sodium [Moles/Vol] 141 mmol/L Normal 135-144 [facility] Comment on above: Performed By: #### Z FAST, TSHX, MG, CP, CDP #### [facility] [address] [place] [address] Senior Front End Developer: Elio Pate MD #### VD25, LIPR #### [address] [id number] Senior Front End Developer: Jose Manuel Corona MD Urea nitrogen [Mass/Vol] 26 mg/dL High 8-23 [facility] Comment on above: Performed By: #### Z FAST, TSHX, MG, CP, CDP #### [facility] [address] [place] [address] Senior Front End Developer: Elio Pate MD #### VD25, LIPR #### [place] [id number] Senior Front End Developer: Jose Manuel Corona MD Albumin/Globulin [Mass ratio] NOT REPORTED Normal 1.0-2.5 [facility] Comment on above: Performed By: #### Z FAST, TSHX, MG, CP, CDP #### [facility] [address] [place] [address] Senior Front End Developer: Elio Pate MD #### VD25, LIPR #### [address] [address] Senior Front End Developer: Jose Manuel Corona MD Staging: NOT REPORTED Normal [facility] Comment on above: Performed By: #### Z FAST, TSHX, MG, CP, CDP #### [facility] [address] [place] [address] Senior Front End Developer: Elio Pate MD #### VD25, LIPR #### [facility] [address] [place] [address] Senior Front End Developer: Jose Manuel Corona MD Comprehensive Metabolic Pane [facility] 04-30-2020 Albumin [Mass/Vol] 4.4 g/dL 3.5 - 5.2 g/dL [place], [place] Albumin/Globulin [Mass ratio] NOT REPORTED [place] ALP [Catalytic activity/Vol] 61 U/L 40 - 129 U/L [place] ALT [Catalytic activity/Vol] 14 U/L 5 - 41 U/L [place] Anion gap [Moles/Vol] 10 mmol/L 9 - 17 mmol/L [place] AST [Catalytic activity/Vol] 17 U/L <40 [place] Bilirubin Ql (U) 0.53 mg/dL 0.3 - 1.2 mg/dL [place] Bun/Cre Ratio 18 [place] Calcium [Mass/Vol] 11.1 mg/dL High 8.6 - 10. 4 mg/dL [place] Chloride [Moles/Vol] 101 mmol/L 98 - 10 7 mmol/L [place] CO2 [Moles/Vol] 30 mmol/L 20 - 31 mmol/L [place] Creatinine [Mass/Vol] 1.48 mg/dL High 0.7 - 1.2 mg/dL [place] GFR 55 mL/min Low >60 [place] GFR Non- 46 mL/min Low >60 [place] GFR/1.73 sq M predicted among non-blacks MDRD (S/P/Bld) [Vol rate/Area] NOT REPORTED [place] GFR/1.73 sq M predicted among non-blacks MDRD (S/P/Bld) [Vol rate/Area] [place] Comment on above: Average GFR for 70 o r more years old: 75 mL/min/1.73sq m Chronic Kidney Disease: <60 mL/min/1.73sq m Kidney failure: <15 mL/min/1.73sq m eGFR calculated using average adult body mass. Additional eGFR calculator available at: http://www.Nixle/multiple_crcl_2012.htm Glucose [Mass/Vol] 89 mg/dL 70 - 99 mg/dL [place] Interpretation and review of laboratory results Abnormal [place] Potassium [Moles/Vol] 3.8 mmol/L 3.7 - 5.3 mmol/L [place] Protein [Mass/Vol] 7.4 g/dL 6.4 - 8.3 g/dL [place] Sodium [Moles/Vol] 141 mmol/L 135 - 144 mmol/L [place] Urea nitrogen [Mass/Vol] 26 mg/dL High 8 - 23 mg/dL [place] Lipid Panelon 04-30-2020 Cholesterol [Mass/Vol] 152 mg/dL <200 [place] Comment on above: Cholesterol Guidelines: <200 Desirable 200-240 Borderline >240 Undesirable Cholesterol in HDL [Mass/Vol] 48 mg/dL >40 [place] Comment on above: HDL Guidelines: <40 Undesirable 40-59 Borderline >59 Desirable Cholesterol in LDL [Mass/Vol] 89 mg/dL 0 - 130 mg/dL [place] Comment on above: LDL Guidelines: <100 Desirable 100-129 Near to/above Desirable 130-159 Borderline >159 Undesirable Direct (measured) LDL and calculated LDL are not interchangeable tests. Cholesterol in VLDL [Mass/Vol] NOT REPORTED 1 - 30 mg/dL [place] Cholesterol.total/Ch olesterol in HDL [Mass ratio] 3.2 {ratio} <5 [place] Triglyceride [Mass/Vol] 75 mg/dL <150 [place] Comment on above: Triglyceride Guidelines: <150 Desirable 150-199 Borderline 200-499 High >499 Very high Based on AHA Guidelines for fasting triglyceride, March 2012. Lipid Profileon 04-30-2020 Cholesterol [Mass/Vol] 152 mg/dL Normal <200 [facility] Comment on above: Result Comment: Cholesterol Guidelines: <200 Desirable 200-240 Borderline >240 Undesirable Performed By: #### Z FAST, TSHX, MG, CP, CDP #### [facility] [address] [place] [address] Senior Front End Developer: Elio Pate MD #### VD25, LIPR #### [facility] [place], [place] [phone] Senior Front End Developer: Jose Manuel Corona MD Cholesterol in HDL [Mass/Vol] 48 mg/dL Normal >40 [facility] Comment on above: Result Comment: HDL Guidelines: <40 Undesirable 40-59 Borderline >59 Desirable Performed By: #### Z FAST, TSHX, MG, CP, CDP #### [facility] [address] [place] [address] Senior Front End Developer: Elio Pate MD #### VD25, LIPR #### [email or web address] [facility] [place], [place] [id number] Senior Front End Developer: Jose Manuel Corona MD Cholesterol in LDL [Mass/Vol] 89 mg/dL Normal 0-130 [facility] Comment on above: Result Comment: LDL Guidelines: <100 Desirable 100-129 Near to/above Desirable 130-159 Borderline >159 Undesirable Direct (measured) LDL and calculated LDL are not interchangeable tests. Performed By: #### Z FAST, TSHX, MG, CP, CDP #### [facility] [address] [place] [address] Senior Front End Developer: Elio Pate MD #### VD25, LIPR #### [email or web address] [facility] [place], [place] [phone] Senior Front End Developer: Jose Manuel Corona MD Cholesterol.total/Ch olesterol in HDL [Mass ratio] 3.2 {ratio} Normal <5 [facility] Comment on above: Performed By: #### Z FAST, TSHX, MG, CP, CDP #### [facility] [address] [place] [address] Senior Front End Developer: Elio Pate MD #### VD25, LIPR #### [place] [id number] [place], [place] [id number] Senior Front End Developer: Jose Manuel Corona MD Triglyceride [Mass/Vol] 75 mg/dL Normal <150 [facility] Comment on above: Result Comment: Triglyceride Guidelines: <150 Desirable 150-199 Borderline 200-499 High >499 Very high Based on AHA Guidelines for fasting triglyceride, March 2012. Performed By: #### Z FAST, TSHX, MG, CP, CDP #### [facility] [address] [place] [address] Senior Front End Developer: Elio Pate MD #### VD25, LIPR #### [address] [phone] Senior Front End Developer: Jose Manuel Corona MD Cholesterol in VLDL [Mass/Vol] NOT REPORTED Normal -30 [facility] Comment on above: Performed By: #### Z FAST, TSHX, MG, CP, CDP #### [facility] [address] [place], [place] [phone] Senior Front End Developer: Elio Pate MD #### VD25, LIPR #### [address] [phone] Senior Front End Developer: Jose Manuel Corona MD Magnesiumon 04-30-2020 Magnesium [Mass/Vol] 1.7 mg/dL Normal 1.6-2.6 [facility] Comment on above: Performed By: #### Z FAST, TSHX, MG, CP, CDP #### [facility] [address] [place], [place] [phone] Senior Front End Developer: Elio Pate MD #### VD25, LIPR #### [address] [phone] Senior Front End Developer: Jose Manuel Corona MD Magnesium [Mass/Vol] 1.7 mg/dL 1.6 - 2 .6 mg/dL [facility], [place] Otheron 04-30-2020 Immature granulocytes (Bld) [#/Vol] NOT REPORTED [place] Patient Fasting?on 0 Patient Fasting? YES [place] Patient fasting?on 0 Patient fasting? YES Normal [facility] Comment on above: Performed By: #### Z FAST, TSHX, MG, CP, CDP #### [facility] [address] [place] [address] Senior Front End Developer: Elio Pate MD #### VD25, LIPR #### [facility] [email or web address] [address] [place], [place] [address] Senior Front End Developer: Jose Manuel Corona MD TSH w/reflex to FT4on 2019 TSH Qn 3.67 m[IU]/L Normal 0.30-5.00 [facility] Comment on above: Performed By: #### Z FAST, TSHX, MG, CP, CDP #### [facility] [address] [place] [address] Senior Front End Developer: Elio Pate MD #### VD25, LIPR #### [facility] [address] [place], [place] [phone] Senior Front End Developer: Jose Manuel Corona MD TSH with Reflexon 04-30-2020 TSH Qn 3.67 m[IU]/L [place], [place] Vitamin D 25 Hydroxyon 04-30 Vit D, 25-Hydroxy 48.9 ng/mL 30 - 100 ng/mL [place], [place] Comment on above: Reference Range: Vitamin D status Range Deficiency <20 ng/mL Mild Deficiency 20-30 ng/mL Sufficiency 30-100 ng/mL Toxicity >100 ng/mL Vitamin D 25 OHon 04-30-2020 Vitamin D 25 OH 48.9 ng/mL Normal 30.0-100.0 [facility] Comment on above: Result Comment: Reference Range: Vitamin D status Range Deficiency <20 ng/mL Mild Deficiency 20-30 ng/mL Sufficiency 30-100 ng/mL Toxicity >100 ng/mL Performed By: #### Z FAST, TSHX, MG, CP, CDP #### [facility] [address] [place] [address] Senior Front End Developer: Elio Pate MD #### VD25, LIPR #### [place] [id number] [place] [address] Senior Front End Developer: Jose Manuel Corona MD XR CHEST (2 [...] Akhtar Jr., MD 04/30/20 Final result Normal [facility] Granulocytes/100 WBC (Bld) Dilated tortuous aorta. Small granuloma left lung of no significance. [place] EXAM: XR CHEST (2 VW ) HISTORY: Reason for exam:->a fib COMPARISON: Chest 04/16/2019 TECHNIQUE: 2 views chest FINDINGS: The aorta is dilated and tortuous including prominent ascending aorta arch and descending aorta. 5 mm calcified granuloma overlying the lateral left anterior 6th rib. Surgical clips in the right upper quadrant abdomen. No failure, pneumonia, or effusion. [place] [employer] [employer] Incoming Radiant Results From [employer] - 04/30/2020 12:37 PM EST EXAM: XR [...] Small granuloma left lung of no significance. [place] CBC Auto Differentialon 11-0 Basophils (Bld) [#/Vol] 0.00 10*3/uL [place] Basophils/100 WBC (Bld) 1 % 0 - 2 % [place] Differential Type YES [place] Eosinophils (Bld) [#/Vol] 0.10 10*3/uL [place] Eosinophils/100 WBC (Bld) 1 % 0 - 5 % [place] Erythrocyte distribution width (RBC) [Ratio] 13.6 % 12.1 - 15.2 % [place] Hematocrit (Bld) [Volume fraction] 43.1 % 41 - 53 % [place] Hemoglobin (Bld) [Mass/Vol] 14.5 g/dL 13.5 - 17.5 g/dL [place] Lymphocytes (Bld) [#/Vol] 2.60 10*3/uL [place] Lymphocytes/100 WBC (Bld) 34 % 13 - 44 % [place] MCH (RBC) [Entitic mass] 31.3 pg 26 - 34 pg [place] MCHC (RBC) [Mass/Vol] 33.7 g/dL 31 - 37 g/dL [place] MCV (RBC) [Entitic vol] 92.8 fL 80 - 100 fL [place] Monocytes (Bld) [#/Vol] 0.50 10*3/uL [place] Monocytes/100 WBC (Bld) 7 % 5 - 9 % [place] Platelet mean volume (Bld) [Entitic vol] NOT REPORTED 6 - 12 fL [place] Platelets (Bld) [#/Vol] 265 10*3/uL [place] Platelets (Bld) [#/Vol] NOT REPORTED [place] RBC (Bld) [#/Vol] 4.64 10*6/uL 4.5 - 5.9 m/uL [place] RBC morphology finding Nom (Bld) NOT REPORTED [place] Segmented neutrophils/100 WBC (Bld) 57 % 39 - 75 % [place] Segs Absolute 4.40 [place] WBC (Bld) [#/Vol] NOT REPORTED per 100 WBC [place] WBC (Bld) [#/Vol] 7.7 10*3/uL [place] WBC Morphology NOT REPORTED [place] Comprehensive Metabolic Pane oliva 04-16-2019 Albumin [Mass/Vol] 4.6 g/dL 3.5 - 5.2 g/dL [place] Albumin/Globulin [Mass ratio] NOT REPORTED [place] ALP [Catalytic activity/Vol] 75 U/L 40 - 129 U/L [place] ALT [Catalytic activity/Vol] 12 U/L 5 - 41 U/L [place] Anion gap [Moles/Vol] 14 mmol/L 9 - 17 mmol/L [place] AST [Catalytic activity/Vol] 16 U/L <40 [place] Bilirubin Ql (U) 0.83 mg/dL 0.3 - 1.2 mg/dL [place] Bun/Cre Ratio 19 [place] Calcium [Mass/Vol] 10.5 mg/dL High 8.6 - 10. 4 mg/dL [place] Chloride [Moles/Vol] 100 mmol/L 98 - 10 7 mmol/L [place] CO2 [Moles/Vol] 24 mmol/L 20 - 31 mmol/L [place] Creatinine [Mass/Vol] 1.54 mg/dL High 0.7 - 1.2 mg/dL [place] GFR 53 mL/min Low >60 [place] GFR Non- 44 mL/min Low >60 [place] GFR/1.73 sq M predicted among non-blacks MDRD (S/P/Bld) [Vol rate/Area] [place] Comment on above: Average GFR for 70 o r more years old: 75 mL/min/1.73sq m Chronic Kidney Disease: <60 mL/min/1.73sq m Kidney failure: <15 mL/min/1.73sq m eGFR calculated using average adult body mass. Additional eGFR calculator available at: http://www.FlyClip.EasyPost/multiple_crcl_2012.htm GFR/1.73 sq M predicted among non-blacks MDRD (S/P/Bld) [Vol rate/Area] NOT REPORTED [place] Glucose [Mass/Vol] 98 mg/dL 70 - 99 mg/dL [place] Potassium [Moles/Vol] 4.0 mmol/L 3.7 - 5.3 mmol/L [place] Protein [Mass/Vol] 8.1 g/dL 6.4 - 8.3 g/dL [place] Sodium [Moles/Vol] 138 mmol/L 135 - 144 mmol/L [place] Urea nitrogen [Mass/Vol] 30 mg/dL High 8 - 23 mg/dL [place] Lipid Panelon 04-16-2019 Cholesterol [Mass/Vol] 208 mg/dL High <200 [place] Comment on above: Cholesterol Guidelines: <200 Desirable 200-240 Borderline >240 Undesirable Cholesterol in HDL [Mass/Vol] 59 mg/dL >40 [place] Comment on above: HDL Guidelines: <40 Undesirable 40-59 Borderline >59 Desirable Cholesterol in LDL [Mass/Vol] 130 mg/dL 0 - 130 mg/dL [place] Comment on above: LDL Guidelines: <100 Desirable 100-129 Near to/above Desirable 130-159 Borderline >159 Undesirable Direct (measured) LDL and calculated LDL are not interchangeable tests. Cholesterol in VLDL [Mass/Vol] NOT REPORTED 1 - 30 mg/dL [place] Cholesterol.total/Ch olesterol in HDL [Mass ratio] 3.5 {ratio} <5 [place] Triglyceride [Mass/Vol] 94 mg/dL <150 [place] Comment on above: Triglyceride Guidelines: <150 Desirable 150-199 Borderline 200-499 High >499 Very high Based on AHA Guidelines for fasting triglyceride, March 2012. Magnesiumon 04-16-2019 Magnesium [Mass/Vol] 1.8 mg/dL 1.6 - 2 .6 mg/dL [place] Otheron 04-16-2019 Interpretation and review of laboratory results Abnormal [place] Immature granulocytes (Bld) [#/Vol] NOT REPORTED [facility] [place] Patient Fasting?on 9 Patient Fasting? yes [place] TSH with Reflexon 04-16-2019 TSH Qn 2.24 m[IU]/L [place] Vitamin D 25 Hydroxyon 04-16 Vit D, 25-Hydroxy 60.3 ng/mL 30 - 100 ng/mL [place] Comment on above: Reference Range: Vitamin D status Range Deficiency <20 ng/mL Mild Deficiency 20-30 ng/mL Sufficiency 30-100 ng/mL Toxicity >100 ng/mL XR CHEST STANDARD (2 VW)on 06-16-2018 Granulocytes/100 WBC (Bld) Dilated tortuous aorta. Small granuloma left lung of no significance. [place] EXAM: XR CHEST (2 VW ) HISTORY: I10 78-year-old male essential hypertension. COMPARISON: None. TECHNIQUE: 2 views chest. FINDINGS: The aorta is dilated and tortuous including prominent ascending aorta arch and descending aorta. 5 mm calcified granuloma overlying the lateral left anterior 6th rib. Surgical clips in the right upper quadrant abdomen. No failure, pneumonia, or effusion. [place] [employer] [employer] Incoming Radiant Results From [employer] - 04/16/2019 2:19 PM EST EXAM: XR [...] Small granuloma left lung of no significance. [place] Basic Metabolic Panelon 03-12 Anion gap [Moles/Vol] 18 mmol/L 10 - 20 mmol/L [facility] Calcium [Mass/Vol] 10.2 mg/dL 8.4 - 10. 2 mg/dL [facility] Chloride [Moles/Vol] 101 mmol/L 98 - 10 8 mmol/L [facility] Creatinine [Mass/Vol] 1.15 mg/dL 0.8 - 1.3 mg/dL [facility] GFR/1.73 sq M predicted among non-blacks MDRD (S/P/Bld) [Vol rate/Area] The eGFR should be used for monitoring renal function only and not for medication dosing. [facility] GFR/1.73 sq M.predicted CKD-EPI (S/P/Bld) [Vol rate/Area] 60 >=60 mL/min/1.73 m2 [facility] Glucose [Mass/Vol] 60 mg/dL Low 65 - 99 mg/dL [facility] HCO3 [Moles/Vol] 24 mmol/L 21 - 32 mmol/L [facility] Interpretation and review of laboratory results Abnormal [facility] Potassium [Moles/Vol] 4.1 mmol/L 3.5 - 5.1 mmol/L [facility] Sodium [Moles/Vol] 139 mmol/L 135 - 145 mmol/L [facility] Urea nitrogen [Mass/Vol] 23 mg/dL 8 - 25 mg/dL [facility] Urea nitrogen/Creatinine [Mass ratio] 20.0 mg/mg [facility] CBC WITH AUTO DIFFERENTIALon 03-28-2019 Basophils (Bld) [#/Vol] 0.04 10*3/uL [facility] Basophils/100 WBC (Bld) 0.5 % [facility] Eosinophils (Bld) [#/Vol] 0.06 10*3/uL [facility] Eosinophils/100 WBC (Bld) 0.8 % [facility] Erythrocyte distribution width (RBC) [Entitic vol] 12.9 % 11.6 - 14.8 % [facility] Hematocrit (Bld) [Volume fraction] 39.7 % Low 41 - 53 % [facility] Hemoglobin (Bld) [Mass/Vol] 13.3 g/dL Low 13.5 - 17.5 g/dL [facility] Immature granulocytes (Bld) [#/Vol] 0.03 10*3/uL [facility] Immature granulocytes/100 WBC (Bld) 0.40 % [facility] Comment on above: The IG parameter is the percentage of metamyelocytes, myelocytes, and promyelocytes. Interpretation and review of laboratory results Abnormal [facility] Lymphocytes (Bld) [#/Vol] 2.67 10*3/uL [facility] Lymphocytes/100 WBC (Bld) 35.8 % [facility] MCH (RBC) [Entitic mass] 31.1 pg 26 - 34 pg [facility] MCHC (RBC) [Mass/Vol] 33.5 g/dL 31 - 37 g/dL [facility] MCV (RBC) [Entitic vol] 93.0 fL 80 - 100 fL [facility] Monocytes (Bld) [#/Vol] 0.51 10*3/uL [facility] Monocytes/100 WBC (Bld) 6.8 % [facility] Neutrophils (Bld) [#/Vol] 4.15 10*3/uL [facility] Neutrophils/100 WBC (Bld) 55.7 % [facility] Nucleated RBC (Bld) [#/Vol] 0.00 10*3/uL [facility] Nucleated RBC/100 WBC (Bld) [Ratio] 0.0 % [facility] Platelet mean volume (Bld) [Entitic vol] 9.5 fL 9 - 15.5 fL [facility] Platelets (Bld) [#/Vol] 222 10*3/uL [facility] RBC (Bld) [#/Vol] 4.27 10*6/uL Low [facility] WBC (Bld) [#/Vol] 7.46 10*3/uL [facility] ECHOCARDIOGRAM TRANSESOPHAGE [place] 04-06-2018 Transesophageal Echocardiogram ____ Patient: MANISH Bryan [facility] Rec#: [id number] (Age): 1940(77y) Height: 172.7(cm)/67(in Study Date: 04/06/2018 Weight: 72.6(kg)/160(lb Room#: BSA: 1.86 Type: Outpatient Loc: [facility] Procedure Room Sex: M ____ Reading: Joey Fischer MD MSc Referring: ALMITA Performing: Joey Fischer MD MSc Nurse: JAY DU RN Secondary NurseFiLorene islas History: Atrial fibrillation. Cancer. ProstateCVA, history. Hyperlipidemia Hypertension. Other. CardioversionRenal failure. Diagnosis: ICD-10-PCS Unspecified atrial fibrillation (I48.91) Atrial Fibrillation (427.31) CPT Code(s): DOP ECHO COLOR JEOVANNY MIKA MAPG (83259) DOP ECHO COMPL (53665) [facility] R-T IMG 2D W/PRB IMG ACQUISJ IR (97028) Summary: Patient identity verified and ID band [...] PM EDT Transesophageal Echocardiogram ____ Patient: MANISH Zhu Rec#: [id number] (Age): 1940(77y) Height: 172.7(cm)/67(in Study Date: 04/06/2018 [...] Code(s): DOP ECHO COLOR JEOVANNY MIKA MAPG (80413) DOP ECHO COMPL (36479) [facility] R-T IMG 2D W/PRB IMG ACQUISJ IR (73462) Summary: Patient identity verified and ID band [...] Joey Fischer MD MSc Invalid Interpretation Code [facility] Basic Metabolic Panelon 09- Anion gap 3 molar conc 16 mmol/L Invalid Interpretation Code 10 - 20 mmol/L [facility] Calcium mass conc 9.2 mg/dL Invalid Interpretation Code 8.4 - 10.2 mg/dL [facility] Chloride molar conc 104 mmol/L Invalid Interpretation Code 98 - 108 mmol/L [facility] Creatinine mass conc 1.26 mg/dL Invalid Interpretation Code 0.8 - 1.3 mg/dL [facility] GFR/1.73 sq M predicted among non-blacks MDRD vol rate/area (S/P/Bld) The eGFR should be used for monitoring renal function only and not for medication dosing. Invalid Interpretation Code [facility] GFR/1.73 sq M.predicted CKD-EPI vol rate/area (S/P/Bld) 54 Low >=60 mL/min/1.73 m2 [facility] Glucose mass conc 85 mg/dL Invalid Interpretation Code 65 - 99 mg/dL [facility] HCO3 molar conc 24 mmol/L Invalid Interpretation Code 21 - 32 mmol/L [facility] Interpretation and review of laboratory results Abnormal Invalid Interpretation Code [facility] Potassium molar conc 4.1 mmol/L Invalid Interpretation Code 3.5 - 5.1 mmol/L [facility] Sodium molar conc 140 mmol/L Invalid Interpretation Code 135 - 145 mmol/L [facility] Urea nitrogen mass conc 22 mg/dL Invalid Interpretation Code 8 - 25 mg/dL [facility] Urea nitrogen/Creatinine mass ratio 17.5 mg/mg Invalid Interpretation Code [facility] CBCon 02-22-2018 Erythrocyte distribution width Auto Entitic volume (RBC) 12.5 % Invalid Interpretation Code 11.6 - 14.8 % [facility] Hematocrit Auto Volume Fraction (Bld) 40.4 % Low 41 - 53 % [facility] Hemoglobin mass conc (Bld) 13.6 g/dL Invalid Interpretation Code 13.5 - 17.5 g/dL [facility] Interpretation and review of laboratory results Abnormal Invalid Interpretation Code [facility] MCH Auto Entitic mass (RBC) 31.5 pg Invalid Interpretation Code 26 - 34 pg [facility] MCHC Auto mass conc (RBC) 33.7 g/dL Invalid Interpretation Code 31 - 37 g/dL [facility] MCV Auto Entitic volume (RBC) 93.5 fL Invalid Interpretation Code 80 - 100 fL [facility] Nucleated RBC #/vol (Bld) 0.00 10*3/uL Invalid Interpretation Code [facility] Nucleated RBC/100 WBC Ratio (Bld) 0.0 % Invalid Interpretation Code [facility] Platelet mean volume Auto Entitic volume (Bld) 9.5 fL Invalid Interpretation Code 9 - 15.5 fL [facility] Platelets Auto #/vol (Bld) 193 10*3/uL Invalid Interpretation Code [facility] RBC Auto #/vol (Bld) 4.32 10*6/uL Low [facility] WBC Auto #/vol (Bld) 6.59 10*3/uL Invalid Interpretation Code [facility] CBC Auto Differentialon 02-10 Basophils Auto #/vol (Bld) 0.04 10*3/uL Invalid Interpretation Code [facility] Basophils/100 WBC Auto (Bld) 0.5 % Invalid Interpretation Code [facility] Eosinophils Auto #/vol (Bld) 0.13 10*3/uL Invalid Interpretation Code [facility] Eosinophils/100 WBC Auto (Bld) 1.8 % Invalid Interpretation Code [facility] Erythrocyte distribution width Auto Entitic volume (RBC) 12.9 % Invalid Interpretation Code 11.6 - 14.8 % [facility] Hematocrit Auto Volume Fraction (Bld) 41.4 % Invalid Interpretation Code 41 - 53 % [facility] Hemoglobin mass conc (Bld) 14.5 g/dL Invalid Interpretation Code 13.5 - 17.5 g/dL [facility] Immature granulocytes #/vol (Bld) 0.02 10*3/uL Invalid Interpretation Code [facility] Immature granulocytes/100 WBC (Bld) 0.30 % Invalid Interpretation Code [facility] Comment on above: The IG parameter is the percentage of metamyelocytes, myelocytes, and promyelocytes. Interpretation and review of laboratory results Abnormal Invalid Interpretation Code [facility] Lymphocytes Auto #/vol (Bld) 2.56 10*3/uL Invalid Interpretation Code [facility] Lymphocytes/100 WBC Auto (Bld) 35.2 % Invalid Interpretation Code [facility] MCH Auto Entitic mass (RBC) 32.4 pg Invalid Interpretation Code 26 - 34 pg [facility] MCHC Auto mass conc (RBC) 35.0 g/dL Invalid Interpretation Code 31 - 37 g/dL [facility] [facility] MCV Auto Entitic volume (RBC) 92.6 fL Invalid Interpretation Code 80 - 100 fL [facility] Monocytes Auto #/vol (Bld) 0.54 10*3/uL Invalid Interpretation Code [facility] Monocytes/100 WBC Auto (Bld) 7.4 % Invalid Interpretation Code [facility] Neutrophils Auto #/vol (Bld) 3.99 10*3/uL Invalid Interpretation Code [facility] Neutrophils/100 WBC Auto (Bld) 54.8 % Invalid Interpretation Code [facility] Nucleated RBC #/vol (Bld) 0.00 10*3/uL Invalid Interpretation Code [facility] Nucleated RBC/100 WBC Ratio (Bld) 0.0 % Invalid Interpretation Code [facility] Platelet mean volume Auto Entitic volume (Bld) 9.4 fL Invalid Interpretation Code 9 - 15.5 fL [facility] Platelets Auto #/vol (Bld) 218 10*3/uL Invalid Interpretation Code [facility] RBC Auto #/vol (Bld) 4.47 10*6/uL Low RI [facility] WBC Auto #/vol (Bld) 7.28 10*3/uL Invalid Interpretation Code [facility] If not done in the last 30 days Invalid Interpretation Code [facility] Echocardiogram intraop RAYMOND g clarence 02-22-2018 Transesophageal Echocardiogram ____ Patient: MANISH Bryan [facility] Rec#: [id number] (Age): 1940(77y) Height: 172.7(cm)/67(in Study Date: 02/22/2018 Weight: 71.2(kg)/157(lb Room#: hybrid BSA: 1.84 Type: Loc: Operating Room Sex: M ____ Reading: Ty Mcarthur DO, FAC Referring: Boy Austin MD Referring: CASPER BUSTOS MD Performing: Ty Mcarthur DO, FAC History: Atrial fibrillation. Diagnosis: ICD-10-PCS Unspecified atrial fibrillation (I48.91) Atrial Fibrillation (427.31) CPT Code(s): DOP ECHO COLOR JEOVANNY MIKA MAPG (46768) DOP ECHO COMPL (34642) RAYMOND R-T IMG 2D W/PRB IMG ACQUISJ IR (52848) Conclusions: 1. A RAYMOND was performed to [...] at 02/22/2018 13:11:43 by: Ty Mcarthur DO, FACC, IQRA ELIZONDO Invalid Interpretation Code C RAD Interface, Rad In Heartlab Xper Echopacs - 02/22/2018 1:14 PM EDT Transesophageal Echocardiogram ____ Patient: MANISH Bryan [facility] Rec#: [id number] (Age): 1940(77y) Height: 172.7(cm)/67(in Study Date: 02/22/2018 Weight: 71.2(kg)/157(lb Room#: hybrid BSA: 1.84 Type: Loc: Operating Room Sex: M ____ Reading: Ty Mcarthur DO, FAC Referring: Boy Austin MD Referring: CASPER BUSTOS MD Performing: Ty Mcarthur DO, FAC History: Atrial fibrillation. Diagnosis: ICD-10-PCS Unspecified atrial fibrillation (I48.91) Atrial Fibrillation (427.31) CPT Code(s): DOP ECHO COLOR JEOVANNY MIKA MAPG (73509) DOP ECHO COMPL (21067) RAYMOND R-T IMG 2D W/PRB IMG ACQUISJ IR (83703) Conclusions: 1. A RAYMOND was performed to [...] 13:11:43 by: Ty Mcarthur, , FACC, MIKHAIL, FSCCT Invalid Interpretation Code [facility] Echocardiogram limitedon Interface, Nii [facility] 02/22/2018 4:19 PM EDT Transthoracic Echocardiogram ____ Patient: MANISH Bryan [facility] Rec#: [id number] (Age): 1940(77y) Height: 172.72(cm)/67(i Study Date: 02/22/2018 Weight: 72.58(kg)/160(l Room#: 3355 BSA: [id number] Type: Inpatient Loc: CIL Sex: M ____ Reading: Delicia Agudelo MD, PhD, Referring: ALMITA Composing Machine Operator/Tender: Kelvin Putnam CS, RV History: Arrhythmia. Atrial fibrillation. Cancer. CVA, history. Hyperlipidemia Hypertension. S/P closure device. 21mm WatchmanTobacco abuse. Diagnosis: ICD-10-PCS Pericardial effusion (noninflammatory) (I31.3) Pericardial effusion (423.9) CPT Code(s): DOP ECHO COLOR JEOVANNY MIKA MAPG (03841) TTE R-T IMG 2D +-M-MODE REC F-UP/LMTD (17832) Study Quality The study quality is fair. [...] RAD Transthoracic Echocardiogram ____ Patient: MANISH Bryan [facility] Rec#: [id number] (Age): 1940(77y) Height: 172.72(cm)/67(i Study Date: 02/22/2018 Weight: 72.58(kg)/160(l Room#: 3355 BSA: 1.011533112366 Type: Inpatient Loc: [facility] Sex: M ____ Reading: Delicia Agudelo MD, PhD, Referring: ALMITA Composing Machine Operator/Tender: Kelvin Putnam [facility], History: Arrhythmia. Atrial fibrillation. Cancer. CVA, history. Hyperlipidemia Hypertension. S/P closure device. 21mm WatchmanTobacco abuse. Diagnosis: ICD-10-PCS Pericardial effusion (noninflammatory) (I31.3) Pericardial effusion (423.9) CPT Code(s): DOP ECHO COLOR JEOVANNY MIKA MAPG (84567) TTE R-T IMG 2D +-M-MODE REC F-UP/LMTD (11573) Study Quality The study quality is fair. [...] Agudelo MD, PhD, RVT Invalid Interpretation Code [facility] Metabolic Panelon 02-22-2018 Protein mass conc Red Blood Cells Invalid Interpretation Code [facility] Protein mass conc [id number] Invalid Interpretation Code [facility] Otheron 02-22-2018 Blood Type Positive Invalid Interpretation Code [facility] Blood Type Code 6200 Invalid Interpretation Code [facility] Cross Match Compatible Invalid Interpretation Code [facility] Status Info Ready Invalid Interpretation Code [facility] POC INRon 02-22-2018 INR Coag RelTime (Bld) 1.0 {INR} Invalid Interpretation Code [facility] Interpretation and review of laboratory results Normal Invalid Interpretation Code [facility] Prepare RBC: 2 Unitson 02-22 Unit Number [id number] Invalid Interpretation Code [facility] Unit Number [id number] Invalid Interpretation Code [facility] Progress Noteon 02-02-2018 HIM IP Note OR Tool Grinder Operator Normal [facility] Progress Noteon 01-26-2018 HIM IP Note OR Tool Grinder Operator Normal [facility] HIM IP Note OR Tool Grinder Operator Normal [facility] CT HEAD WO CONTRASTon 2017 CT HEAD [...] by:VIV Mackayigned by:Kailee Cano MD01/25/18inal result Normal [facility] Progress Noteon 01-25-2018 HIM IP Note OR Tool Grinder Operator Normal [facility] Progress Noteon 11-14-2017 HIM IP Note OR Tool Grinder Operator Normal [facility] HIM IP Note OR Tool Grinder Operator Normal [facility] Vital Signs Date Time Vital Sign Value Performing Clinician [facility] 05-20-2024 11:26-0500 Body height 172.7 cm Cedric Carr MD Work Phone: [facility] 05-20-2024 11:26-0500 Body mass index (BMI) [Ratio] 23.11 kg/m2 Cedric Carr MD Work Phone: [facility] 05-20-2024 11:26-0500 Body weight 68.95 kg eCdric Carr MD Work Phone: [facility] 05-20-2024 11:26-0500 Diastolic blood pressure 70 mm[Hg] Cedric Carr MD Work Phone: [facility] 05-20-2024 11:26-0500 Heart rate 71 /min Cedric Carr MD Work Phone: [facility] 05-20-2024 11:26-0500 SaO2% (BldA) [Mass fraction] 99 % Cedric Carr MD Work Phone: [facility] 05-20-2024 11:26-0500 Systolic blood pressure 110 mm[Hg] Cedric Carr MD Work Phone: [facility] 07-24-2023 11:54-0500 Body mass index (BMI) [Ratio] 22.96 kg/m2 Cedric Carr MD Work Phone: [facility] 07-24-2023 11:54-0500 Body weight 68.49 kg Cedric Carr MD Work Phone: [facility] 07-24-2023 11:54-0500 Diastolic blood pressure 78 mm[Hg] Cedric Carr MD Work Phone: [facility] 07-24-2023 11:54-0500 Systolic blood pressure 118 mm[Hg] Cedric Carr MD Work Phone: [facility] 03-28-2019 14:02-0400 BP Diastolic 80 mm[Hg] Maxwel Trickett [facility] 03-28-2019 14:02-0400 BP Systolic 170 mm[Hg] Maxwel Trickett [facility] 03-28-2019 13:38-0400 BMI (Body Mass Index) 24.02 kg/m2 Maxwel Trickett [facility] 03-28-2019 13:38-0400 Body Temperature 97.7 [degF] [facility] 03-28-2019 13:38-0400 Body weight 71.67 kg [facility] 03-28-2019 13:38-0400 Pulse (Heart Rate) 53 /min [facility] 03-28-2019 13:38-0400 Pulse Oximetry 100 % [facility] 03-28-2019 13:38-0400 Respiratory Rate 16 /min [facility] 04-06-2018 12:10-0400 BP Diastolic 77 mm[Hg] [facility] 04-06-2018 12:10-0400 BP Systolic 135 mm[Hg] [facility] 04-06-2018 12:10-0400 Pulse (Heart Rate) 44 /min [facility] 04-06-2018 12:10-0400 Pulse Oximetry 96 % [facility] 04-06-2018 12:10-0400 Respiratory Rate 13 /min [facility] 04-06-2018 09:40-0400 BMI (Body Mass Index) 24.33 kg/m2 [facility] 04-06-2018 09:40-0400 Body Temperature 97.59 [degF] [facility] 04-06-2018 09:40-0400 BP Diastolic 86 mm[Hg] [facility] 04-06-2018 09:40-0400 BP Systolic 158 mm[Hg] [facility] 04-06-2018 09:40-0400 Pulse (Heart Rate) 48 /min [facility] 04-06-2018 09:40-0400 Pulse Oximetry 95 % [facility] 04-06-2018 09:40-0400 Respiratory Rate 16 /min [facility] 04-06-2018 09:40-0400 Weight 72.58 kg [facility] 02-22-2018 16:23-0400 BP Diastolic 80 mm[Hg] [facility] 02-22-2018 16:23-0400 BP Systolic 144 mm[Hg] [facility] 02-22-2018 16:23-0400 Pulse (Heart Rate) 54 /min [facility] 02-22-2018 16:23-0400 Respiratory Rate 19 /min [facility] 02-22-2018 15:00-0400 Pulse Oximetry 98 % [facility] 02-22-2018 10:55-0400 Body Temperature 97.2 [degF] [facility] 02-22-2018 08:46-0400 BMI (Body Mass Index) 24.33 kg/m2 [facility] 02-22-2018 08:46-0400 Height 172.7 cm [facility] 02-22-2018 08:46-0400 Weight 72.58 kg [facility] 12-26-2017 13:40-0400 BMI (Body Mass Index) 24.33 kg/m2 Boy Austin [facility] 12-26-2017 13:40-0400 Body Temperature 97.59 [degF] Boy Austin [facility] 12-26-2017 13:40-0400 BP Diastolic 83 mm[Hg] Boy Austin [facility] 12-26-2017 13:40-0400 BP Systolic 166 mm[Hg] Boy Austin [facility] 12-26-2017 13:40-0400 Height 172.7 cm Byo Austin [facility] 12-26-2017 13:40-0400 Pulse (Heart Rate) 54 /min Boy Austin [facility] 12-26-2017 13:40-0400 Pulse Oximetry 98 % Boy Austin [facility] 12-26-2017 13:40-0400 Respiratory Rate 16 /min Boy uAstin [facility] 12-26-2017 13:40-0400 Weight 72.58 kg Boy Austin [facility] Encounters Encounter Date Encounter Type Care Provider Facility Start: 05-20-2024 End: 05-20-2024 Maryuri Carr MD Work Phone: [facility] Start: 05-20-2024 End: 05-20-2024 Maryuri Carr MD Work Phone: [facility] Start: 05-20-2024 End: 05-20-2024 Office outpatient visit 25 minutes Cedric Carr MD Work Phone: [facility] Comment on above: Acute pain of left s houlder (Primary Dx); 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); Moderate major depression (CMS/HCC); Generalized anxiety disorder (CMS/HCC); Controlled substance agreement signed; Fall, sequela; Benign essential hypertension (CMS/HCC) Start: 05-20-2024 End: 05-20-2024 ambulatory CEDRIC CARR Not Available Start: 04-24-2024 End: 04-24-2024 Telephone encounter Cedric Carr MD Work Phone: [facility] Start: 10-17-2023 End: 10-17-2023 ambulatory CEDRIC CARR Not Available Start: 08-22-2023 End: 08-22-2023 ambulatory CEDRIC CARR Not Available Start: 08-11-2023 End: 08-11-2023 ambulatory TISH YAÑEZ Not Available Start: 08-07-2023 End: 08-07-2023 ambulatory GERMAINE CONCEPCION Not Available Start: 08-02-2023 End: 08-02-2023 ambulatory TISH YAÑEZ Not Available Start: 07-24-2023 Bamboo flowsmima belcher MD Work Phone: [facility] Start: 07-24-2023 Bamboo flowsheet Cedric belcher MD Work Phone: [facility] Start: 07-24-2023 End: 07-24-2023 Office outpatient visit 25 minutes Cedric Carr MD Work Phone: [facility] Comment on above: Vascular dementia wi thout behavioral disturbance (CMS/HCC); White matter disease; Chronic fatigue; Polypharmacy; Generalized weakness; At risk for falling; Moderate major depression (CMS/HCC) Start: 07-24-2023 End: 07-24-2023 ambulatory CEDRIC CARR Not Available Start: 03-24-2023 End: 03-24-2023 ambulatory [facility] Start: 08-24-2022 End: 08-24-2022 ambulatory UDAY BROWNLEE [facility] Start: 02-03-2022 End: 02-04-2022 ambulatory UDAY BROWNLEE Facility:[facility] Start: 11-10-[address] CEDRIC CARR Facil ity:[facility] Start: 07-22-2021 End: 07-23-[address] CEDRIC CARR Facility:[facility] Start: 07-21-2021 End: 07-22-2021 ambulatory UDAY BROWNLEE Facility:[facility] Start: 10-31-2020 End: 11-03-2020 Evaluation and management of inpatient ENOCH SNEHAL Facility:[facility] Start: 06-26-2020 End: 06-26-2020 Orders Only Leaan Mcgrath Work Phone: [facility] Start: 04-30-2020 End: 05-03-2020 Patient encounter procedure KYLE RUTH [facility] Start: 04-30-2020 End: 05-02-2020 Subsequent hospital visit by physician [facility] Additional Xray At [facility] Comment on above: Essential hypertensi on; Other hyperlipidemia; Vitamin D deficiency disease; Chronic atrial fibrillation currently in NSR for 3 years on flecainaide Vitamin D deficiency disease; Essential hypertension; Other hyperlipidemia Start: 03-23-2020 End: 03-23-2020 [address] Jennifer Tan [facility] Start: 03-23-2020 Patient encounter procedure ANGELA PATEL [facility] Start: 03-13-2020 Patient encounter procedure [facility] Start: 04-16-2019 End: 04-18-2019 Subsequent hospital visit by physician [facility] Additional Xray At [facility] Comment on above: Essential hypertensi on Essential hypertensi on; Chronic atrial fibrillation currently in NSR for 3 years on flecainaide; Vitamin D deficiency disease; Other hyperlipidemia Essential hypertensi on; Chronic atrial fibrillation currently in NSR for 3 years on flecainaide Start: 03-28-2019 End: 03-28-2019 Patient encounter procedure [facility] Start: 03-28-2019 End: 03-28-2019 Office outpatient visit 15 minutes Austen Sheaalicia Work Phone: [facility] Comment on above: PAF (paroxysmal atri al fibrillation) ([facility]) Start: 09-12-2018 End: 09-12-2018 Documentation procedure Jennifernayely Tan [facility] Start: 04-06-2018 End: 04-06-2018 Patient encounter Austen Greenemikal Work Phone: [facility] Cardiac Non-Invasive Lab Comment on above: PAF (paroxysmal atri al fibrillation) ([facility]) Start: 04-06-2018 End: 04-06-2018 Office outpatient visit 15 minutes Cedric Carr Work Phone: [facility] Comment on above: PAF (paroxysmal atri al fibrillation) ([facility]); MENDEZ (acute kidney injury) ([facility]) Start: 02-22-2018 End: 02-22-2018 Evaluation and management of inpatient Generic [facility] Cardiology [facility] Procedural Care Unit Comment on above: PAF (paroxysmal atri al fibrillation) ([facility]); PAF (paroxysmal atrial fibrillation) ([facility]) Start: 01-31-2018 Patient encounter Yelena Adam Eleazar Vasquez [facility] Start: 01-25-2018 End: 01-28-2018 Patient encounter [facility] Start: 01-03-2018 Patient encounter Alexa Purdy [facility] Start: 12-26-2017 End: 12-26-2017 Office outpatient new 60 minutes Angela Smith Work Phone: [facility] Procedures Date Procedure Procedure Detail Performing Clinician [...] Phone: Start: 04-30-2020 Comprehensive metabolic panel Kyle uRth Work Phone: Start: 04-30-2020 Lipid panel Kyle Ruth Work Phone: Start: 04-30-2020 PATIENT FASTING? Kyle Ruth Work Phone: Start: 04-16-2019 Radiologic exam chest [...] blood count with white cell differential, automated [employer] Jeff Work Phone: Start: 03-28-2019 Complete blood [...] Work Phone: Start: 02-22-2018 End: 02-22-2018 Echo raymond guid tcat icar/vessel structural intvn Boy Austin Work Phone: Start: 02-22-2018 End: 02-22-2018 Blood count complete auto&auto difrntl wbc Austen Jeff Work Phone: Start: 02-22-2018 End: 02-22-2018 POC INR - RALS Generic [facility] Start: 02-22-2018 End: 02-22-2018 PREPARE RBC Austen vargas Work Phone: Start: 01-25-2018 Ct head/brain w/o contrast material MAEVE HAYESJESUSITA Plan of Treatment Date Care Activity Detail Author Start: 12-23-2025 Tetanus vaccination [facility] Start: 05-20-2024 End: 05-20-2025 XR Shoulder - left 2 Views XR shoulder 2+ views left Imaging Routine Acute pain of left shoulder Fall, sequela Expected: 05/20/2024 (Approximate), Expires: 05/20/2025 [facility] Work Phone: Comment on above: Expected: 05/20/2024 (Approximate), Expires: 05/20/2025 Start: 05-20-2024 End: 05-20-2024 Patient encounter procedure [facility] Comment on above: Moderate major depre ssion (CMS/HCC); Generalized anxiety disorder (CMS/HCC); Mild cognitive impairment; Vascular dementia without behavioral disturbance (CMS/HCC); 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); Controlled substance agreement signed Start: 02-11-2024 Influenza vaccination Influenza Vacc ine (#1) [facility] Start: 08-02-2023 End: 08-02-2023 ambulatory 08/02/2023 10:00 AM EST Evaluation [facility] [address] [id number] Tish Yañez, PT [facility] Start: 07-24-2023 End: 07-24-2023 Patient encounter procedure 07/24/2023 11:30 AM EST Office Visit [facility] [address] [place] [address] Cedric Carr MD [address], [place] [id number] (Fax) Vascular dementia without behavioral disturbance (CMS/HCC); White matter disease; Adult situational stress disorder (CMS/HCC); Moderate major depression (CMS/HCC); Chronic fatigue; Polypharmacy [facility] Comment on above: Vascular dementia wi thout behavioral disturbance ([facility]); White matter disease; Adult situational stress disorder ([facility]); Moderate major depression ([facility]); Chronic fatigue; Polypharmacy Start: 02-10-2023 Influenza vaccination Influenza Vacc ine (#1) [facility] Start: 02-02-2023 Medicare Annual Well ness (AWV) Medicare Annual Wellness (AWV) [facility] Start: 04-30-2021 Creatinine measurement Creatinine mo [place], [place] Start: 04-30-2021 Lipid panel Lipid screen [place], [place] Start: 04-30-2021 Potassium monitoring Potassium monit [place], [place] Start: 10-29-2020 End: 10-29-2020 Office Visit 10/29/2020 Office Visit Cardiology Kyle Ruth MD [address] [place] [address] [facility] Lockstitch Cup Setter Start: 04-16-2020 Creatinine measurement Creatinine mo [place], [place] Start: 04-16-2020 Creatinine monitoring Creatinine mon itoring [place], [place] Start: 04-16-2020 Lipid panel Lipid screen [place], [place] Start: 04-16-2020 Lipid screen Lipid screen [place], [place] Start: 04-16-2020 Potassium monitoring Potassium monit [place], [place] Start: 02-11-2020 Influenza vaccination Flu vaccine (# 1) [place], [place] Start: 02-11-2020 Influenza vaccinatio n given Sequential Influenza Vaccine (#1) [facility] Start: 11-07-2019 End: 11-07-2019 Office Visit 11/07/2019 Office Visit Cardiology Kyle Ruth MD [address] [place] [address] [facility] Lockstitch Cup Setter Start: 07-09-2019 History and physical examination, annual for health maintenance Wellness Visit [facility] Start: 02-10-2019 Influenza vaccination Flu vaccine (# 1) [place], [place] Start: 02-10-2019 Influenza vaccinatio n given SEQUENTIAL INFLUENZA VACCINE (#1) [facility] Start: 12-02-2018 Annual Wellness Visi t (AWV) Annual Wellness Visit (AWV) [place], [place] Start: 04-06-2018 End: 04-06-2018 Ambulatory 04/06/2018 Office Visit Cardiology Ramonamikal Juaquinronnie Messina, GROUND SUPPORT AGENT [address] [place] [address] [phone] [facility] Start: 02-22-2018 Ambulatory [facility] Crane Manager Start: 02-10-2018 Influenza vaccination SEQUENTI AL INFLUENZA VACCINE (#1) [facility] Start: 02-10-2018 Influenza vaccinatio n given SEQUENTIAL INFLUENZA VACCINE (#1) [facility] Start: 2004 Fall risk assessment Ziyadadi Fa ll Risk Assessment [facility] Start: 2004 Pneumococcal 65+ yea rs Vaccine (1 of 1 - PPSV23) Pneumococcal 65+ years Vaccine (1 of 1 - PPSV23) [place], [place] Start: 2004 Pneumococcal vaccination PNEUM OCOCCAL VACCINE AGE 65+ (1 of 2 - PCV13) [facility] Start: 1999 Zoster vaccine hzv l riccardo for subcutaneous use ZOSTER VACCINE [facility] Start: 1989 Administration of he rpes zoster vaccine ZOSTER VACCINES (1 of 2) [facility] Start: 1989 Shingles Vaccine (1 of 2) Darling gles Vaccine (1 of 2) [place] Start: 1989 ZOSTER VACCINES (1 of 2) ZOSTER VACC ANTON (1 of 2) [facility] Start: 1958 DTaP/Tdap/Td vaccine (1 - Tdap) DTaP/Tdap/Td vaccine (1 - Tdap) [place], [place] Start: 1951 Adolescent depressio n screening assessment Depression Screening (PHQ9) [facility] Start: 1949 Albumin DL <= 20 mg/ L mass conc (U) URINE MICROALBUMIN [facility] Start: 1942 History and physical examination, annual for health maintenance Wellness Visit [facility] Start: 1939 Fall risk assessment Falls Risk Asse ssment [facility] End: 04-06-2019 Basic metabolic 2000 panel Basic Metabolic Panel Routine PAF (paroxysmal atrial fibrillation) ([facility]) 1 Occurrences starting 04/06/2018 until 04/06/2019 [facility] Comment on above: 1 Occurrences starti ng 04/06/2018 until 04/06/2019 Basic metabolic 2000 panel Basic Metabolic Panel Routine PAF (paroxysmal atrial fibrillation) ([facility]) 04/06/2018 10:12 AM EDT [facility] Cardiac catheterization Cardiac Catheterization Routine PAF (paroxysmal atrial fibrillation) ([facility]) 02/22/2018 10:49 AM EDT [facility] EKG 12 Lead [facility], [place] Immunizations Immunization Date Immunization Notes Care Provider Fa [facility] 07-31-2019 influenza, injectabl e, quadrivalent, preservative free Cedric Carr MD Work Phone: [facility] 07-31-2019 influenza virus vacc ine, unspecified formulation Cedric Carr MD Work Phone: [facility] 03-12-2019 influenza, injectabl e, quadrivalent, preservative free Cedric Carr MD Work Phone: [facility] 08-08-2018 influenza, injectabl e, quadrivalent, preservative free Cedric Carr MD Work Phone: [facility] 03-24-2017 influenza, high dose seasonal, preservative-free Cedric Carr MD Work Phone: [facility] 03-20-2017 influenza, injectabl e, quadrivalent, preservative free Cedric Carr MD Work Phone: [facility] 06-29-2016 influenza, injectabl e, quadrivalent, preservative free Cedric Carr MD Work Phone: [facility] 06-29-2016 influenza, seasonal, injectable, preservative free Cedric Carr MD Work Phone: [facility] 04-25-2016 influenza, injectabl e, quadrivalent, preservative free Cedric Carr MD Work Phone: [facility] 04-25-2016 pneumococcal conjuga te vaccine, 7 valent Cedric Carr MD Work Phone: [facility] 04-25-2016 pneumococcal Conjuga te, unspecified formulation Cedric Carr MD Work Phone: [facility] 12-24-2015 tetanus and diphther ia toxoids, adsorbed, preservative free, for adult use (5 Lf of tetanus toxoid and 2 Lf of diphtheria toxoid) Cedric Carr MD Work Phone: [facility] 05-14-2015 influenza virus vacc ine, unspecified formulation Cedric Carr MD Work Phone: [facility] 04-27-2015 influenza, injectabl e, quadrivalent, preservative free Cedric Carr MD Work Phone: [facility] 02-11-2015 pneumococcal conjuga te vaccine, 13 valent Cedric Carr MD Work Phone: [facility] 05-30-2014 influenza, seasonal, injectable, preservative free Cedric Carr MD Work Phone: [facility] 2013 diphtheria, tetanus toxoids and acellular pertussis vaccine Cedric Carr MD Work Phone: [facility] 2013 influenza virus vacc ine, unspecified formulation Cedric Carr MD Work Phone: [facility] 2013 influenza, injectabl e, quadrivalent, preservative free Cedric Carr MD Work Phone: [facility] 03-24-2010 influenza virus vacc ine, unspecified formulation Cedric Carr MD Work Phone: [facility] 03-24-2010 influenza, injectabl e, quadrivalent, preservative free Cedric Carr MD Work Phone: [facility] 03-24-2009 influenza virus vacc ine, unspecified formulation Cedric Carr MD Work Phone: [facility] 03-24-2009 influenza, injectabl e, quadrivalent, preservative free Cedric Carr MD Work Phone: [facility] 06-24-2008 influenza virus vacc ine, unspecified formulation Cedric Carr MD Work Phone: [facility] 05-20-2005 pneumococcal polysaccharide vaccine, 23 valent Cedric Carr MD Work Phone: [facility] 05-20-2005 pneumococcal vaccine , unspecified formulation Cedric Carr MD Work Phone: [facility] Healthcare Payers Date Payer Category Payer Private Health Insurance [facility] [place] [id number] 2022 Unknown [facility] [place] [facility] [place] [id number] 2022-Present [address] [place] [id number] 2019 Unknown [facility] xxxxx xxxx 2019-Present xxxxxxxxx [id number] .[id number] 2019 Unknown [id number] 2019 Unknown [facility] xxxxx [id number] 2019-Present [id number] .[id number] 2015 Medicare [id number] 2009 Unknown xxxxxxxxxx [id number] .[id number] 2009 Unknown [employer] [id number] 2009-Present [id number] [id number] .[id number] 2004 Medicare [id number] .[id number] 2004 Medicare MEDICARE MEDICAR E PART A & B [id number] 2004-Present [place] [id number] .[id number] 2004 Medicare [id number]. 1.13.693.2 .[id number] 2004 Medicare [id number] 1959 Medicare [id number] 1959 Self-pay 1959 Unknown [id number] 1939 Unknown [id number] 2.16.840.1.611236.3.579.2 .900 1939 Unknown [id number] 2.16.840.1.030798.3.579.2 .900 1939 Unknown [id number] 2.16.840.1.989850.3.579.2 .900 1939 Unknown [id number] 2.16.840.1.506132.3.579.2 .174 1939 Unknown [id number] 2.16.840.1.359293.3.579.2 .174 1939 Unknown [id number] 2.16.840.1.357631.3.579.2 .174 1939 Unknown [id number] 2.16.840.1.985840.3.579.2 .174 1939 Unknown [id number] 2.16.840.1.556473.3.579.2 .647 1939 Unknown [id number] 2.16.840.1.423817.3.579.2 .593 1939 Unknown [id number] 2.16.840.1.924330.3.579.2 .593 1939 Unknown [id number] 2.16.840.1.706066.3.579.2 .593 1939 Unknown [id number] 2.16.840.1.841874.3.579.2 .593 1939 Unknown [id number] 2.16.840.1.068239.3.579.2 .1259 1939 Unknown [id number] 2.16.840.1.483586.3.579.2 .1259 1939 Unknown [id number] 2.16.840.1.412907.3.579.2 .1259 1939 Unknown [id number] 2.16.840.1.214545.3.579.2 .1259 1939 Unknown [id number] 2.16.840.1.806376.3.579.2 .1259 1939 Unknown [id number] 2.16.840.1.915621.3.579.2 .1259 1939 Unknown [id number] 2.16.840.1.698671.3.579.2 .1259 Social History Date Type Detail Facility Start: 12-26-2017 End: 04-16-2019 Tobacco smoking status PRIS Former smoker [facility] End: 06-12-1974 History of tobacco use Current smoker [facility] Start: 1940 Sex Assigned At Not on file [facility] Start: 03-28-2019 End: 04-30-2020 Alcohol intake Current non-drinker of alcohol (finding) [facility] End: 06-12-1971 [facility] Start: 04-16-2019 End: 03-07-2023 Alcohol intake No [facility] [place] Start: 03-28-2019 End: 03-06-2023 Tobacco use and exposure Never used [facility] Start: 04-30-2020 End: 03-07-2023 Cigarettes smoked current (pack per day) - Reported [place], [place] Start: 04-30-2020 Tobacco use and exposure Former user [place] End: 06-12-1971 History of tobacco use User of smokeless tobacco [place], [place] Start: 03-06-2023 Tobacco smoking stat us PRIS Never smoked tobacco [facility] Start: 04-13-2023 End: 05-20-2024 Alcohol intake Ex-drinker (finding) [facility] Start: 03-06-2023 Education 21 [facility] Medical Equipment Procedure Code Equipment Code Equipment Origin al Text Equipment Identifier Dates Closure 6fr Prog lide - [id number] Start: 02-22-2018 Device 21mm Watc hman Sandy Closure - [id number] Start: 02-22-2018 Device Watchman Procedure Sandy Closure - [id number] Start: 02-22-2018 Closure 6fr Prog lide - [id number] Start: 02-22-2018 Device 21mm Watc hman Sandy Closure - [id number] Start: 02-22-2018 Device Watchman Procedure Sandy Closure - [id number] Start: 02-22-2018 Closure 6fr Prog lide - [id number] Start: 02-22-2018 Device 21mm Watc hman Sandy Closure - [id number] Start: 02-22-2018 Device Watchman Procedure Sandy Closure - [id number] Start: 02-22-2018 Closure 6fr Prog lide - [id number] Start: 02-22-2018 Device 21mm Watc hman Sandy Closure - [id number] Start: 02-22-2018 Device Watchman Procedure Sandy Closure - [id number] Start: 02-22-2018 Closure 6fr Prog lide - [id number] Start: 02-22-2018 Device 21mm Watc hman Sandy Closure - [id number] Start: 02-22-2018 Device Watchman Procedure Sandy Closure - [id number] Start: 02-22-2018 Closure 6fr Prog lide - [id number] Start: 02-22-2018 Device 21mm Watc hman Sandy Closure - [id number] Start: 02-22-2018 Device Watchman Procedure Sandy Closure - [id number] Start: 02-22-2018 Clinical Notes 11-03-2020 to 05-20-2024 Cedric Carr MD - 05/20/2024 11:30 AM ESTTelephone Encounter - Opal Mcconnell - 04/25/2024 1:26 PM ESTTelephone Encounter - Opal Mcconnell - 04/25/2024 1:26 PM EST Note Date & Type Note Facility 05-20-2024 History of Present illness Narrative Images from the original note were not included. Patient ID: Siddharth Hammond is a 83 y.o. male who presents for: Anxiety Patient is here for evaluation of anxiety. He/She has the following anxiety symptoms: none. Onset of symptoms was approximately several years ago. Symptoms have been stable since that time. He/She denies current suicidal and homicidal ideation. Family history significant for no psychiatric illness.Possible organic causes contributing are: none. Previous treatment includes medication Lexapro. He/She complains of the following medication side effects: none. Dementia/Memory Loss: He/she is accompanied by son. Primary caregiver is patient, son, and daughter. Patient lives alone. The family and the patient identify problems with changes in short term memory. Family and patient report problems with agitation with not being more mobile, has not had PT since october or november. Family and patient are concerned about Son has some questions he will review with , however, they are not concerned about medication errors and cooking because children do that for him. Medication administration: family sets up medications. The patient has with them today and independent historian; his son. The independent historian is here to ensure that the information related to us in the HPI and review of systems is accurate. They are also here to help the patient to understand and follow through with treatment plans established today. Hypertension Patient is here for follow-up of elevated blood pressure. He is not exercising and is adherent to a low-salt diet. Blood pressure is not well checking at home. Cardiac symptoms: none. Patient denies chest pain, dyspnea, irregular heart beat, lower extremity edema, and palpitations. Cardiovascular risk factors: advanced age (older than 55 for men, 65 for women), hypertension, male gender, and sedentary lifestyle. Use of agents associated with hypertension: none. History of target organ damage: angina/ prior myocardial infarction, heart failure, prior coronary revascularization, and stroke. Review of Systems Constitutional: Positive for fatigue. Negative for appetite change. Psychiatric/Behavioral: Positive for agitation. Negative for behavioral problems, sleep disturbance and suicidal ideas. The patient is not nervous/anxious. Objective The patient is pleasant and in no acute distress. The neck is supple and trachea is midline. No masses are appreciated. The heart is regular rate and rhythm without S3, S4. No murmur. The patient has normal respiratory pattern. The breath sounds are symmetrical without evidence of rhonchi or rales. No wheezing. The skin is warm and dry. The lower extremities have trace edema. The patient has Fair eye contact and speech is clear. flat affect. He can move his shoulder in all directions and arc with only a little bit of pain. On examination there was no bruising or significant swelling. There is diffuse tenderness along the upper outer 3rd of the humerus. The AC joint appears nontender. He is able to flex and extend the elbow and the wrist. Visit Vitals Ht 5' 8 Wt 152 lb BMI 23.11 kg/m Smoking Status Never BSA 1.82 m PDMP reviewed, Cedric Carr MD on 05/20/2024 11:57 AM Appears as expected. COMM Not able to perform due to the dementia Allergies Allergen Reactions Lisinopril Other Reaction(s): angiodemia Sulfa Antibiotics Other Reaction(s): Hives Current Outpatient Medications on File Prior to Visit Medication Sig Dispense Refill ALPRAZolam XR 1 MG 24 hr tablet Take 1 tablet (1 mg) by mouth in the morning. 30 tablet 0 amLODIPine (Norvasc) 5 MG tablet Take 1 tablet (5 mg) by mouth Daily 90 tablet 1 escitalopram (Lexapro) 20 MG tablet Take 1 tablet (20 mg) by mouth Daily 30 tablet 0 fexofenadine (Nicole Allergy) 180 MG tablet Take 180 mg by mouth 1 (one) time each day at the same time. losartan (Cozaar) 50 MG tablet Take 1 tablet (50 mg) by mouth Daily 90 tablet 1 Multiple Vitamin (Multi-Vitamin) tablet Take 1 tablet by mouth in the morning. No current facility-administered medications on file prior to visit. 1. 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 The family is coming over every evening. Does spend the days mostly home alone except on the weekends. His son notes that things have been much better As far as anxiety or agitation since his mother has been placed in the correction. These medications are also cross treating the generalized anxiety disorder and depressive disorder. - ALPRAZolam XR 1 MG 24 hr tablet; Take 1 tablet (1 mg) by mouth in the morning. Dispense: 90 tablet; Refill: 1 - escitalopram (Lexapro) 20 MG tablet; Take 1 tablet (20 mg) by mouth Daily Dispense: 90 tablet; Refill: 1 2. Moderate major depression (CMS/HCC) Chronic problem as above 3. Generalized anxiety disorder (CMS/HCC) I specifically note the patient has one or more high risk medications that is a chronic problem that specifically increases complexity of decision making and complicates all prescribing including prescription renewal consistent with a moderate or complex degree of decision making. A high-risk medicine is one that may cause serious health problems if not taken the correct way, or taken with another drug or food item that it may interact with. If the high-risk medication includes a controlled or reportable substance, The OARRS and NARX scores were reviewed and seem to be consistent with their prescribing pattern. The Current Opioid Misuse Measure (COMM) is reviewed and there is no evidence of aberrant behavior or abuse. Treatment regimens are increasingly complex and potentially harmful, and people with high risk medications need regular review and prescribing optimization. 4. Controlled substance agreement signed See the scanned document 5. Fall, sequela We mutually agreed that we will go ahead and get an x-ray of the shoulder area. That should also catch the upper part of the humerus. They can not get it done today but will get it done in the next day or 2. - XR shoulder 2+ views left; Future 6. Acute pain of left shoulder (Primary) As above - XR shoulder 2+ views left; Future 7. Benign essential hypertension (CMS/HCC) Chronic problem, stable, to goal. In prescribing a renewal to their current medication, consideration of the following encompasses moderate decision making; the current prescriptions and supplements, the current allergies and medication intolerances, current medical conditions, and potential drug interactions. Any changes to risks, benefits, and reason for renewing their current medication due to the above were discussed. The patient was given a chance to ask questions today and all questions were answered. The patient is to contact us if any other questions arise or if any problems occur. (Utilizing the original guidelines or the 2020 office/outpatient code guidelines for selecting the level of E/M service, In both sets of guidelines, prescription drug management appears in the moderate medical decision making (MDM) row. Neither the original guidelines nor the new guidelines state that a new prescription or change is needed in order to credit prescription drug management) - losartan (Cozaar) 50 MG tablet; Take 1 tablet (50 mg) by mouth Daily Dispense: 90 tablet; Refill: 1 - amLODIPine (Norvasc) 5 MG tablet; Take 1 tablet (5 mg) by mouth Daily Dispense: 90 tablet; Refill: 1 documented in this encounter [facility] 04-25-2024 Telephone encounter Note Appt moved to May 20 [facility] 04-25-2024 Miscellaneous Notes Appt moved to May 20 Jackeline Monday will not work for his OV because sent 30 days of his xanax on 04/23. Needs to be in May. Full RX sent Denny Lenz called and scheduled his dad for next week. His sister had called for a couple refills but did not get them all. Denny Sr also is out of Losartan and Amlodepine. He will be out before his appointment on Monday and they are asking for refills. documented in this encounter [facility] 04-25-2024 Telephone encounter Note Jackeline Monday will not work for his OV because EH sent 30 days of his xanax on 04/23. Needs to be in May. [facility] 04-24-2024 Telephone encounter Note Full RX sent [facility] 04-24-2024 Telephone encounter Note Denny Lenz called and scheduled his dad for next week. His sister had called for a couple refills but did not get them all. Denny May also is out of Losartan and Amlodepine. He will be out before his appointment on Monday and they are asking for refills. [facility] 07-24-2023 History of Present illness Narrative Patient ID: Siddharth Hammond is a 83 y.o. male who [...] that his has been placed in a correction he seems to have significantly less agitation [...] and reviewed with the patient. [facility] Med https://www.ncbi.nlm.nih.gov/pmc/ articles/JGV2595641/. 2015; 13: 74. Published online 2014Sep 16. https://www.ncbi.nlm.nih.gov/pubm ed/56171172 The rising tide of polypharmacy and drug-drug interactions: population database analysis 7305-0905 https://www.ncbi.nlm.nih.gov/pmc/ articles/GVL5536442/. 5. Sourav K, Rachelle SW, Yudith M, Abran G, Elva S, Jackie Vazquez. Epidemiology of multimorbidity and implications for health [...] will decrease dose. documented in this encounter [facility] 03-24-2023 Note [place] [facility] Subjective Siddharth Hammond Sr. is a 82 y.o. year [...] disorder HLD (hyperlipidemia) Hypertensive emergency Hypertensive nephropathy alf current use of anticoagulant therapy Lung granuloma [...] use: Not Currently Drug use: Never MAR Siddharth is seen in follow-up. He is an 82-year-old man with prior history of hypertension, chronic kidney disease, paroxysmal atrial fibrillation status post a watchman procedure in [place] [He is not sure why he needed [...] 11 cholecalciferol (Cristela (more content not included)... [facility] 08-24-2022 Note Renal condition is Stable [facility] 08-24-2022 Note Rate well controlled continue metoprolol, no anticoagulation status post watchman implantation [facility] 08-24-2022 Note Hypertension is Well controlled 136/87 and daughter states blood pressure is even better at home Continue lisinopril, hydralazine and Metoprolol [facility] 08-24-2022 Note No anticoagulation s tatus post watchman implantation [facility] 08-24-2022 Note Coronary artery dise ase is Stable Without any concerning symptoms Continue goal-directed medical therapy with Plavix, metoprolol and Lipitor continue risk factor modifications- heart healthy diet, regular exercise as tolerated and continue all medications. [facility] 08-24-2022 Note Pt is here for 8 mon F/U Review of Systems All other systems reviewed and are negative. [facility] 08-24-2022 Note [facility] CARDIOLOGY PROGR ESS NOTE HPI: Siddharth Hammond Sr. is a 82 y.o. male here for Routine follow-up of CAD status post PCI, proximal atrial fib, history of SD, hyperlipidemia, hypertension and CKD Currently denies chest pain, shortness of breath, orthopnea, palpitations. All states he feels well denies any exercise limiting symptoms Pt is here for 8 month F/U Previous per Dr Cohen Siddharth is a 81-year-old man with history of [...] also discussed that given his an acute SD episode in October 2020, he will need [...] Cholesterol 116, HDL 40, triglyceride 94 LDL 57.8-Yxum-cvctnmdxnt Last lab values have been reviewed CV Testing: Cath 11/02/2020 Echo 11/02/2020- LV systolic function normal ejection fraction 55%. Systolic dysfunction RV is normal size and normal systolic function Left atrium is normal size Mild tricuspid regurgitation No echocardiogram results found for the past 12 domonique (more content not included)... [facility] 11-03-2020 Note MR#: [id number] I [facility] Pt. Name: Siddharth Hammond Sr Admitted: 10/31/2020 Discharged: 11/03/2020 Date [...] history of bradycardia. He was transferred from [facility] for chest discomfort. Apparently, he was walking outside when he developed chest discomfort, which is unusual for him, described as a pressure in the mid of the chest with no radiation. Initial evaluation in [facility] showed elevated troponins and was sent here [...] by: Bar Hathaway MD 11/04/2020 04:05 P ___ Bar Hathaway MD Date Dict: 11/03/2020/12:20 P/Bar Hathaway MD Date Trans: 11/03/2020 01:59 P/chandler [id number] cc: Cedric Carr M.D. [address] [place] [id number] Braeden Schaefer M.D. [address] [place] [address] [facility] Evaluation note Diagnosis Vascular dementia without behavioral disturbance (CMS/HCC) White matter disease Chronic fatigue Other malaise and fatigue Polypharmacy Issue of repeat prescriptions Generalized weakness At risk for falling Personal history of fall Moderate major depression (CMS/HCC) Major depressive disorder, single episode, moderate [facility] Diagnosis Benign essential hypertension (CMS/HCC) Essential hypertension, benign [facility] Diagnosis Acute pain of left shoulder- Primary 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) Moderate major depression (CMS/HCC) Major depressive disorder, single episode, moderate Generalized anxiety disorder (CMS/HCC) Generalized anxiety disorder Controlled substance agreement signed Fall, sequela Benign essential hypertension (CMS/HCC) Essential hypertension, benign documented in this encounter [facility] Assessments [...] FoundNo Family History Records Found Advance Directives Latest Code Status on File Code Status Date Activated Date Inactivated Comments Full Code 02/22/2018 10:31 AM Full Code 02/22/2018 8:23 AM 02/22/2018 10:31 AM Documents on File Type Date Recorded Patient Manager Mobility Expl anation Advance Directives and Livin g Will 03/28/2019 1:20 PM Documents on File Type Date Recorded Patient Manager Mobility Expl anation Advance Directives and Living Will Power of Marine Engineering Teacher Latest Code Status on File Code Status Date Activated Date Inactivated Comments Full Code 03/31/2016 9:24 PM 04/11/2016 2:27 PM Full Code 12/26/2015 7:02 PM 12/31/2015 5:47 PM Documents on File Type Date Recorded Patient Manager Mobility Expl anation ACP-Advance Directive ACP-Power of Marine Engineering Teacher Documents on File Type Date Recorded Patient Manager Mobility Expl anation ACP-Advance Directive ACP-Power of Marine Engineering Teacher Latest Code Status on File Code Status Date Activated Date Inactivated Comments Full Code 03/31/2016 9:24 PM 04/11/2016 2:27 PM Full Code 12/26/2015 7:02 PM 12/31/2015 5:47 PM Documents on File Type Date Recorded Patient Manager Mobility Expl anation Advance Directives and Living Will Power of Marine Engineering Teacher Documents on File Type Date Recorded Patient Manager Mobility Expl anation Power of Marine Engineering Teacher 08/28/2023 7:42 AM 05-11 Power Of Marine Engineering Teacher Advance Directives and Living Will 08/28/2023 7:33 AM 2023-05-11 Advance Directive Discharge Instructions * Austen Jeff, GROUND SUPPORT AGENT - 02/22/2018 Successful Left Atrial Appendage Closure [...] swallowing or have severe throat pain. Call [phone]. A scratchy throat liz normal side effect [...] through Care Everywhere. * ECHOCARDIOGRAM: TRANSESOPHAGEAL: POST-OP (MOLDOVAN) in this encounter History of Present Illness * Jennifer Tan RN - 09/12/2018 8:20 AM EDT Office notes and lab results routed to PCP and boarding specialist. in this encounter* Jennifer Tan RN - 09/12/2018 3:46 PM EDT Spoke with pt's son Meño and let him be aware of Siddharth' creatine level. Angela Osorio NP would like him to follow up with his PCP. Son verbalized understanding. in this encounter* Lizzie Nichole RN - 03/28/2019 1:47 PM EDT Siddharth arrived ambulatory with his and son for 1 year s/p Watchman clinic visit. He had no hospital admissions since 6 month Watchman visit. No bleeding, no falls. Medications and allergies reconciled. Siddharth Jeff NP updated and in to see him. Labs drawn Modified Barton Scale and The Holli Index were provided [...] and requiring constant nursing care and attention Siddharth's Modified Darron scale is 0 based on [...] 10 Total (0 - 100) : 100 Steve Schmitt. Functional evaluation:the Holli Index. [place] [employer] Med Journal 1965;14:51-61.Used with permission. * Austen Jeff CNP - 03/28/2019 1:46 PM EDT [facility] [place] [facility] Patient Name: Siddharth Hammond MR #: [id number] : 1940 Physicians: Cedric Carr MD (Family) Perpetual Assessment: Siddharth Hammond is a 78 y.o. 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 He underwent SANDY closure with WATCHMAN device 02/22/18. He presented to the structural heart clinic 09/11/18 for 1 year follow up. Assessment and Plan: Paroxysmal Atrial Fibrillation S/p SANDY closure with WATCHMAN Per history with [id number] score of 3 and HAS-BLED score of [...] closure with WATCHMAN History of Present Illness: Siddharth Hammond is a 78 y.o. 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 Heunderwent SANDY closure with WATCHMAN device 02/22/18. He presented to the structural heart clinic 09/11/18 for 1 year follow up. Pt denies hospital visits since he was last seen in the [facility]. He further denies bleeding events or CVA like symptoms. He denied any falls, does not use any assistive devices for ambulation. Primary boarding specialist: Dr. Ruth and PCP: Dr. 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 Siddharth Jeff, MS, SENIOR SALESFORCE DEVELOPER-GROUND SUPPORT AGENT Structural Heart Nurse Practitioner [facility] Clinic: 03/28/2019 1:46 PM documented in this encounter* Jennifer Tan RN - 03/23/2020 10:07 AM EDT Labs received from [facility] and scanned into system. documented in this encounter Reason for Referral Status Reason Specialty Diagnoses / Procedures Referre d By Contact Referred To Contact Open Cardiology Diagnoses Essential hypertension Other hyperlipidemia Vitamin D deficiency disease Chronic atrial fibrillation (HCC) Procedures EKG 12 Lead Kyle Ruth MD [address] [place] [address] Status Reason Specialty Diagnoses / Procedures Referre d By Contact Referred To Contact Open Cardiology Diagnoses Essential hypertension Chronic atrial fibrillation Procedures EKG 12 Lead Kyle Ruth MD [address] [place] [address] Specialty Diagnoses / Procedures Referred By Juan vargas Referred To Contact Physical Therapy Diagnoses Generalized weakness At risk for falling Procedures HI OFFICE/OUTPATIENT NEW [facility] 60 MINUTES Cedric Carr MD [address] [place] [address] Tish Yañez, KADEN Referral ID Status Reason Start Date Expiration Date Visits Requested Visits Authorized [id number] Authorized Specialty Services Required 07/24/2023 01/20/2024 10 10 Additional Source Comments (unrecognized sect ion and content) No Status Records FoundNo Status Records FoundNo Status Records FoundNo Status Records FoundNo Status Records FoundNo Status Records FoundNo Status Records FoundNo Status Records Found INFORMATION SOURCE (unrecogn ized section and content) DATE CREATED AUTHOR 01/28/2018 [facility] DATE CREATED AUTHOR AUTHOR'S ORGANIZ ATION 02/07/2018 [facility] DATE CREATED AUTHOR AUTHOR'S ORGANIZ ATION 03/23/2020 [facility] DATE CREATED AUTHOR AUTHOR'S ORGANIZ ATION 05/02/2020 [facility] Steven Navarro [facility] DATE CREATED AUTHOR AUTHOR'S ORGANIZ ATION 11/06/2020 [facility] DATE CREATED AUTHOR AUTHOR'S ORGANIZ ATION 02/05/2022 [facility] DATE CREATED AUTHOR AUTHOR'S ORGANIZ ATION 03/26/2023 [facility] DATE CREATED AUTHOR AUTHOR'S ORGANIZ ATION 05/23/2024 [facility] dical Specialists JANNET Bustos, Casper Leblanc MD - 02/22/2018 9:22 AM Austen Bean CNP - 02/21/2018 3:56 PM EDT H&P Notes (unrecognized sect ion and content) INTERVAL HISTORY AND PHYSICAL Patient Name: Siddharth Hammond Sr. Admit Date: [id number] MR #: [id number] : 1940 The H&P has been reviewed [...] the original. Structural Heart Evaulation Patient Name: Siddharth Hammond Sr. MR #: [id number] : 1940 Physicians: Cedric Carr MD (Family); No ref. provider found (Referring) Perpetual Assessment: Siddharth Hammond Sr. is a 77 y.o. male with a past medical history significant for paroxysmal atrial fibrillation, hypertension, hyperlipidemia and bilateral subdural hematomas s/p burrhole drainage/Left craniotomy in 2016 at [facility] who presented to the structural heart clinic from home for WATCHMAN PAT. Assessment and Plan: Assessment & Plan: Paroxysmal atrial fibrillation: Siddharth Hammond Sr. is a 77 y.o. male [...] with independent non-interventional physician: Dr. Thomson - Care Home anticoagulation is indicated as evidenced by a [id number] score of 3. - Increased risk for bleeding as evidenced by a HAS-BLED score of 3 - Discussed R/B/A of left atrial appendage closure with WATCHMAN as an alternative to half-way anticoagulation. - Patient prefers general anesthesia Watchman [...] by physicians that have received the recommended flight data technician training and have met the minimum qualifications [...] Closure with WATCHMAN History of Present Illness: Siddharth Hammond is a 77 y.o. male with a past medical history significant for paroxysmal atrial fibrillation, hypertension, hyperlipidemia and bilateral subdural hematomas s/p burrhole drainage in 2016 at [facility] who presented to the structural heart clinic from home for WATCHMAN evaluation. History obtained per patient and his son. The patient reported a longstanding history of atrial fibrillation and previously followed with Dr. Olivas (EP) at [facility]. He underwent successful cardioversion in 2011 and was on Coumadin until 12/2015 when he sustained spontaneous bilateral subdural hematomas. No traumatic injury per patient but he was doing some renovations on a house in the 90 degree heat lifting heavy items per son. He was admitted to [facility] at that time and underwent bilateral burrhole drainage per Dr. Joshi (neurosurgery). He had recurrent bleeding 03/2016 and was again hospitalized and underwent Left frontal craniotomy and drainage of subdural hematoma with drain placement. Pt reports that he has followed up with his neurosurgeon in [place] and he has been given the go ahead to resume Eliquis for this procedure. He was referred per his primary boarding specialist (Dr. Thomson) to the structural heart clinic [...] indefinitely. No reported history of GI bleeding. Siddharth Hammond Sr. denies any previous history of [...] Classification: STROKE AND BLEEDING RISK SCORING SYSTEMS [id number] THOMAS-BLED score RISK FACTOR SCORE PRESENT RISK [...] disease (previous 1 E Elderly 1 yes SD, arterial disease or no D Drugs 1 no aortic plaque) D Alcohol 1 no Sc Sex category - female sex 1 no Score 3 Score 3 History: Past Medical History: Diagnosis Date A-fib (HCC) Arrhythmia CVA (cerebral vascular accident) ([facility]) 12/2015, 03/2016 History of cardioversion 2011 Hyperlipidemia [...] (!) 158/90 Pulse (!) 48 Temp 97.7 F (36.5 C ) (Oral) Resp 16 Wt 71.2 kg (157 [...] with assessment with appropriate mood and affect. Siddharth Jeff, MS, SENIOR SALESFORCE DEVELOPER-GROUND SUPPORT AGENT Structural Heart Nurse Practitioner Structural Heart Clinic: [...] (paroxysmal atrial fibrillation) (HCC) Per history with [id number] score of 3 and HAS-BLED score of [...] encounter INTERVAL HISTORY AND PHYSICAL Patient Name: Siddharth Hammond Admit Date: 04/06/2018 MR #: [id number] : 1940 The H&P has been reviewed [...] Comments Heart Problem 1 year s/p Watchman Reason Comments Anxiety Care Teams (unrecognized sec tion and content) Backhoe Operator Relationship Specialty Start Date End Date Cedric Carr MD [address] [place] [address] (Fax) PCP - General Family Medicine 10/18/22 Cedric Carr MD [address] [place] [address] (Fax) PCP - ACO Reach 03/11/23 Backhoe Operator Relationship Specialty Start Date End Date Cedric Carr MD [address] [place] [address] (Fax) PCP - General Family Medicine 10/18/22 Cedric Carr MD [address] [place] [address] (Fax) PCP - ACO Reach 03/11/23 Backhoe Operator Relationship Specialty Start Date End Date Cedric Carr MD [address] [address] (Fax) PCP - General Family Medicine 10/18/22 Cedric Carr MD [address] [address] PCP - ACO Reach 03/11/23 Backhoe Operator Relationship Specialty Start Date End Date Cedric Carr MD [address] [place] [facility] [place] [address] PCP - General Family Medicine 10/18/22 Cedric Carr MD [address] [place] [address] PCP - ACO Reach 03/11/23 Backhoe Operator Relationship Specialty Start Date End Date Cedric Carr MD [address] [place] [address] [place] [address] PCP - General Family Medicine 10/18/22 Cedric Carr MD [address] [place] [address] PCP - ACO Reach 03/11/23 FOR RECORDS [...] BE BASED ON THE PRIMARY CLINICAL RECORDS. [facility] [employer] [facility]. provides no warranty or guarantee of the accuracy or completeness of information in this document.
--- NOTE | 2024-06-02 08:54 | CT_ITS ---
The [address] [address] Patient Name: NETTE CAO MRN: [id number] date: 1940 Sex: M Assigned Patient Location: ER Current Patient Location: Accession/Order Number: [id number] Exam Date: 06/02/2024 09:23 Report Date: 06/02/2024 10:04 At the request of: RONN SANTORO Procedure: CT facial bones wo con EXAM: CT head/brain wo con, CT facial bones wo con HISTORY: trauma fall COMPARISON: CT head 08/24/2023. TECHNIQUE: Axial noncontrast CT imaging of the head and facial bones was performed with coronal and sagittal reformats. This CT exam was performed using one or more of the following dose reduction techniques: Automated exposure control, adjustment of the MA and/or kV according to patient size, or use of iterative reconstruction technique. FINDINGS: Soft tissues: Moderate to large left facial and periorbital/to greater extent infraorbital soft tissue contusion with questionable small laceration involving the lateral left periorbital soft tissues.. Orbits: Globes intact nonspecific calcifications are present along the posterior aspect of the globes bilaterally along the posterior superior margin of the globe. These are stable from prior. No fractures or masses. Sinuses: Clear. Midface/nasal cavity: No fractures or masses. Maxilla/mandible: No fractures or destructive lesions. Calvarium/skull base: Prior craniotomy changes are redemonstrated. No evidence of acute fracture or destructive lesion. Brain: No acute intracranial hemorrhage. No acute large vascular territory infarct. Stable multifocal patchy symmetric hypoattenuation involving the supratentorial white matter which while nonspecific most commonly relates to sequela of small vessel disease. Stable parenchymal volume loss. No mass lesion or mass effect. No hydrocephalus. CT/CT facial bones wo con IMPRESSION: 1. No acute intracranial process. 2. Large left facial/orbital soft tissue contusion with questionable small laceration involving the left supraorbital soft tissues laterally. 3. No acute facial bone fracture. 4. Chronic intracranial findings described above. Electronically authenticated by: GABRIEL MONREAL Date: 06/02/2024 10:04
--- NOTE | 2024-06-02 08:54 | CT_ITS ---
The [address] [address] Patient Name: NETTE CAO MRN: [id number] date: 1940 Sex: M Assigned Patient Location: ER Current Patient Location: Accession/Order Number: [id number] Exam Date: 06/02/2024 09:23 Report Date: 06/02/2024 10:04 At the request of: RONN SANTORO Procedure: CT head/brain wo con EXAM: CT head/brain wo con, CT facial bones wo con HISTORY: trauma fall COMPARISON: CT head 08/24/2023. TECHNIQUE: Axial noncontrast CT imaging of the head and facial bones was performed with coronal and sagittal reformats. This CT exam was performed using one or more of the following dose reduction techniques: Automated exposure control, adjustment of the MA and/or kV according to patient size, or use of iterative reconstruction technique. FINDINGS: Soft tissues: Moderate to large left facial and periorbital/to greater extent infraorbital soft tissue contusion with questionable small laceration involving the lateral left periorbital soft tissues.. Orbits: Globes intact nonspecific calcifications are present along the posterior aspect of the globes bilaterally along the posterior superior margin of the globe. These are stable from prior. No fractures or masses. Sinuses: Clear. Midface/nasal cavity: No fractures or masses. Maxilla/mandible: No fractures or destructive lesions. Calvarium/skull base: Prior craniotomy changes are redemonstrated. No evidence of acute fracture or destructive lesion. Brain: No acute intracranial hemorrhage. No acute large vascular territory infarct. Stable multifocal patchy symmetric hypoattenuation involving the supratentorial white matter which while nonspecific most commonly relates to sequela of small vessel disease. Stable parenchymal volume loss. No mass lesion or mass effect. No hydrocephalus. CT/CT head/brain wo con IMPRESSION: 1. No acute intracranial process. 2. Large left facial/orbital soft tissue contusion with questionable small laceration involving the left supraorbital soft tissues laterally. 3. No acute facial bone fracture. 4. Chronic intracranial findings described above. Electronically authenticated by: GABRIEL MONREAL Date: 06/02/2024 10:04
[2024-06-02] MEDS: ADACEL DIPH,PERTUSS(ACELL),TET VAC/PF 0.5 ML ADULT SYRINGE IM (09:12)
[2024-06-02] MEDS: LIDOCAINE HCL 1% 100 MG/10 ML MDV INJ (10:28)
[2024-06-02 10:46] LABS: Basophils Absolute Auto 0.1 10^3/uL (0.0-0.1); Basophils Percent Auto 0.6 % (0.2-2.0); Eosinophils Absolute Auto 0.3 10^3/uL (0.0-0.7); Hematocrit 43.8 % (42.0-54.0); Immature Granulocytes Abs Auto 0.03 10^3/uL (0.00-0.03); Immature Granulocytes Pct Auto 0.4 % (0.0-0.5); Lymphocytes Absolute Auto 2.2 10^3/uL (1.2-3.8); Lymphocytes Percent Auto 26.6 % (20.5-60.0); Mean Corpuscular HGB Conc 34.2 g/dL (29.9-35.2); Mean Corpuscular Hemoglobin 31.3 pg (25.9-34.0); Mean Corpuscular Volume 91.4 fL (80.0-94.0); Mean Platelet Volume 9.1 fL (9.5-13.5); Monocytes Absolute Auto 0.6 10^3/uL (0.3-0.8); Monocytes Percent Auto 7.2 % (1.7-12.0); Neutrophils Percent Auto 61.2 % (43.0-75.0); Platelet Count 167 10^3/uL (150-450); Red Blood Count 4.79 10^6/uL (4.70-6.10); Red Cell Distribution Width 12.5 % (11.0-15.0); White Blood Count 8.1 10^3/uL (4.0-11.0)
[2024-06-02 10:51] VITALS: BP 136/97; PULSE 65; O2SAT 96
[2024-06-02 11:02] LABS: Alanine Aminotransferase 16 U/L (16-63); Albumin Globulin Ratio 0.8; Albumin Level 2.9 g/dL (3.4-5.0); Alkaline Phosphatase 67 U/L (46-116); Anion Gap 10.9; Aspartate Amino Transferase 19 U/L (15-37); BUN Creatinine Ratio 16.4; Bilirubin Total 0.6 mg/dL (0.2-1.0); Calcium 8.7 mg/dL (8.5-10.1); Carbon Dioxide 31.2 mmol/L (21.0-32.0); Chloride 103 mmol/L (98-107); Estimated GFR (African America >60 (>=60 mL/min/1.73m^2); Estimated GFR (Non-African Ame 54 (>=60 mL/min/1.73m^2); Globulin 3.5 g/dL; Glucose 93 mg/dL (74-106); Potassium 4.1 mmol/L (3.5-5.1); Sodium 141 mmol/L (136-145); Total Protein 6.4 g/dL (6.4-8.2)
--- NOTE | 2024-06-02 13:52 | ED_ITS ---
HPI HPI - Fall General Chief Complaint: Fall Stated Complaint: FALL; FACIAL PAIN, BODY ACHES Time Seen by Provider: 06/02/24 08:50 Source: patient Mode of arrival: walk-in History of Present Illness HPI Narrative: Patient brought to us by the son for a head injury and fall that happened just before arrival, the patient did not have any loss of consciousness but he did hit his left side of the face with the floor and he had a laceration just above the left eye, the patient denies any other complaint but according to the son he has been having multiple falls that he was worked up for before The patient mentioned that he still hydrating well and he denies any other complaint The patient last booster of tetanus was more than 5 years ago Related Data Home Medications ?Medication ?Instructions ?Recorded ?Confirmed alprazolam 1 mg tablet,extended 1 mg PO QAM 08/16/23 06/02/24 release 24 hr aspirin 81 mg tablet,delayed 81 mg PO DAILY 08/16/23 06/02/24 release donepezil 10 mg tablet 20 mg PO .QHS 08/16/23 08/24/23 aripiprazole 5 mg tablet 2.5 mg PO .QHS 08/23/23 08/24/23 amlodipine 5 mg tablet 5 mg PO DAILY 06/02/24 06/02/24 escitalopram oxalate 20 mg tablet 20 mg PO DAILY 06/02/24 06/02/24 losartan 50 mg tablet 50 mg PO DAILY 06/02/24 06/02/24 Allergies Allergy/AdvReac Type Severity Reaction Status Date / Time Sulfa (Sulfonamide Allergy Mild Verified 08/23/23 17:03 Antibiotics) Opioid HPI Opioid Management Most Recent Pain and Opioid Data: Last ORT Total Score 0 08/23/23 20:06 08/23/23 Last ORT Risk Category Low Risk 08/23/23 20:06 08/23/23 Review of Systems ROS Status of ROS 10 or more systems reviewed and unremark able except as noted in history and below [facility] Medical History (Updated 06/02/24 @ 11:24 by Rivka Thrasher MD) Dementia ?F03.90 - Unspecified dementia, unspecified severity, without behavioral disturbance, psychotic disturbance, mood disturbance, and anxiety (ICD-10) Pre-syncope ?R55 - Syncope and collapse (ICD-10) Multiple falls ?R29.6 - Repeated falls (ICD-10) Syncope ?R55 - Syncope and collapse (ICD-10) Generalized weakness ?R53.1 - Weakness (ICD-10) Myocardial infarct ?I21.9 - Acute myocardial infarction, unspecified (ICD-10) Hypertension ?I10 - Essential (primary) hypertension (ICD-10) Brain bleed ?I61.9 - Nontraumatic intracerebral hemorrhage, unspecified (ICD-10) Presence of Watchman left atrial appendage closure device ?Z95.818 - Presence of other cardiac implants and grafts (ICD-10) A-fib ?I48.91 - Unspecified atrial fibrillation (ICD-10) Prostate cancer ?C61 - Malignant neoplasm of prostate (ICD-10) Family History (Updated 08/23/23 @ 20:04 by Yelena Lechuga RN) Other Family history of cancer Social History (Updated 08/23/23 @ 20:06 by Yelena Lechuga RN) Within the past year, how often did you have a drink containing alcohol: never Within the past year, how many standard drinks containing alcohol did you have on a typical day: 1 or 2 Within the past year, how often did you have six or more drinks on one occasion: never Total score: 0 Score interpretation: A score less than 4 is consistent with normal alcohol co nsumption. Smoking status: Former smoker Non-prescribed substance use: denies use Highest level of school completed/degree received: some college, no degree Little interest or pleasure in doing things: not at all Feeling down, depressed, or hopeless: not at all Gender Identity: female Exam Narrative Exam Narrative: Nurses notes and vital signs reviewed and patient is not hypoxic. General: Well-appearing and in no apparent distress. Skin: Warm, dry, no pallor noted. No rash. Head: Normocephalic, left facial just left above the eye edema of the upper eyelid in addition to ecchymosis and swelling over the left eye, the patient orbit itself is normal and there is no tenderness from palpation of the bony orbit, the patient also had his conjunctiva are not erythematous and no blurry vision or acute signs of prior trauma Neck: Supple, non-tender. Eye: Pupils are equal, round and EOMI. No scleral icterus. Ears, Nose, Mouth, and Throat: TM are clear, no nasal mucosal hypertrophy. Oral mucosa is moist, no posterior oropharynx erythema, uvula is mid-line Cardiovascular: Regular Rate and Rhythm without murmur, gallop or rub. Respiratory: No accessory muscle use or respiratory distress. Lungs are clear to auscultation, no wheezing, rales or rhonchi Chest Wall: no tenderness Back: No midline thoracic or lumbar vertebral tenderness. No CVA tenderness Musculoskeletal: normal ROM, no calf or popliteal tenderness, no lower extremity edema/swelling GI: Abdomen is soft, non-distended. Normal bowel sounds. No masses appreciated. No tenderness to palpation. No rebound, guarding, or rigidity noted. Neurological: A&O x4. No cranial nerve dysfunction observed. No truncal ataxia. Moves all extremities. Sensation intact. Psychiatric: Cooperative and interactive. Normal mood and affect. Constitutional Vital Signs, click to edit/add: Last Vital Signs Temp 97.5 F L 06/02/24 08:43 Pulse 65 06/02/24 10:51 Resp 18 06/02/24 10:51 BP 136/97 H 06/02/24 10:51 Pulse Ox 96 06/02/24 10:51 O2 Del Method Room Air 06/02/24 10:51 Course Vital Signs Vital signs: Vital Signs Temperature 97.5 F L 06/02/24 08:43 Pulse Rate 75 06/02/24 08:43 Respiratory Rate 18 06/02/24 08:43 Blood Pressure 139/99 H 06/02/24 08:43 Pulse Oximetry 97 06/02/24 08:43 Oxygen Delivery Method Room Air 06/02/24 08:43 Temperature 97.5 F L 06/02/24 08:43 Pulse Rate 65 06/02/24 10:51 Respiratory Rate 18 06/02/24 10:51 Blood Pressure 136/97 H 06/02/24 10:51 Pulse Oximetry 96 06/02/24 10:51 Oxygen Delivery Method Room Air 06/02/24 10:51 MDM - Fall MDM Narrative Medical decision making narrative: The patient CBC and chemistry showed no acute significant pathology The patient CAT scan of the head and face showed no acute pathology except for the laceration that he had just above his left eye After cleaning the area thoroughly the laceration just above his left eyelid was almost 2 cm linear and just cutting through the epidermis and not causing any exposure of the underlying structures It was cleaned thoroughly and then after that infiltrated the area with almost 3 cc of 1% lidocaine with no epinephrine I placed 4 stitches of 4-0 Prolene The patient as well as his son instructed about the proper care of the wound in addition to monitoring for the next 24 hours for any nausea vomiting or any dizziness he is to be brought back to the ER The patient is to follow up with primary care physician in next 2-3 days or to return to the emergency department should any of the signs or symptoms worsen or new symptoms develop. The patient agrees with the following Diagnosis and Treatment plan and the patient will be discharged home. Lab Data Labs: Lab Results 06/02/24 Range/Units 10:38 WBC 8.1 (4.0-11.0) 10^3/uL RBC 4.79 (4.70-6.10) 10^6/uL Hgb 15.0 (14.0-18.0) g/dL Hct 43.8 (42.0-54.0) % MCV 91.4 (80.0-94.0) fL MCH 31.3 (25.9-34.0) pg MCHC 34.2 (29.9-35.2) g/dL RDW 12.5 (11.0-15.0) % Plt Count 167 (150-450) 10^3/uL MPV 9.1 L (9.5-13.5) fL Neut % (Auto) 61.2 (43.0-75.0) % Lymph % (Auto) 26.6 (20.5-60.0) % [place] % (Auto) 7.2 (1.7-12.0) % Eos % (Auto) 4.0 (0.9-7.0) % Baso % (Auto) 0.6 (0.2-2.0) % Neut # (Auto) 5.0 (1.4-6.5) 10^3/uL Lymph # (Auto) 2.2 (1.2-3.8) 10^3/uL [place] # (Auto) 0.6 (0.3-0.8) 10^3/uL Eos # (Auto) 0.3 (0.0-0.7) 10^3/uL Baso # (Auto) 0.1 (0.0-0.1) 10^3/uL Abs Immat Gran (auto) 0.03 (0.00-0.03) 10^3/uL Imm/Tot Granulo (auto) 0.4 (0.0-0.5) % Sodium 141 (136-145) mmol/L Potassium 4.1 (3.5-5.1) mmol/L Chloride 103 (98-107) mmol/L Carbon Dioxide 31.2 (21.0-32.0) mmol/L Anion Gap 10.9 BUN 21.0 H (7.0-18.0) mg/dL Creatinine 1.28 (0.70-1.30) mg/dL Est GFR ( Amer) >60 (>=60 mL/min/1.73m^2) Est GFR (Non-Af Amer) 54 L (>=60 mL/min/1.73m^2) BUN/Creatinine Ratio 16.4 Glucose 93 (74-106) mg/dL Calcium 8.7 (8.5-10.1) mg/dL Total Bilirubin 0.6 (0.2-1.0) mg/dL AST 19 (15-37) U/L ALT 16 (16-63) U/L Alkaline Phosphatase 67 (46-116) U/L Total Protein 6.4 (6.4-8.2) g/dL Albumin 2.9 L (3.4-5.0) g/dL Globulin 3.5 g/dL Albumin/Globulin Ratio 0.8 Discharge Plan Discharge Chief Complaint: Fall Clinical Impression: Fall, Laceration of eyelid, Head injury Patient Disposition: Home, Self-Care Time of Disposition Decision: 11:23 Condition: Good Prescriptions / Home Meds: No Action alprazolam 1 mg tablet extended release 24 hr 1 mg PO QAM aspirin 81 mg tablet,delayed release (DR/EC) 81 mg PO DAILY donepezil 10 mg tablet 20 mg PO .QHS losartan 50 mg tablet 50 mg PO DAILY amlodipine 5 mg tablet 5 mg PO DAILY escitalopram oxalate 20 mg tablet 20 mg PO DAILY aripiprazole 5 mg tablet 2.5 mg PO .QHS Print Language: Polish Instructions: Head Injury (DC), Fall Prevention (ED), Facial Laceration (ED) Referrals: JC CARR [Primary Care Provider] - 1 week Discharge Date/Time: 06/02/24 11:49
== END 2024-06-02 11:49 | disposition home or self-care (01) ==
PROVIDERS: Emergency Provider Emergency Medicine; PCP Family Medicine
DX: S01.112A Laceration without foreign body of left eyelid and periocular area, initial encounter (principal); S09.90XA Unspecified injury of head, initial encounter; Z87.891 Personal history of nicotine dependence; W19.XXXA Unspecified fall, initial encounter; Z91.81 History of falling; Z23 Encounter for immunization
CPT/HCPCS: 12011; 36415; 70450; 70486; 80053; 85025; 90471; 90715; 99284

== ENCOUNTER 2024-09-03 13:49 | Emergency (ER) | payer MEDICARE, OTHER, SELFPAY ==
[2024-09-03 14:01] VITALS: BP 127/95; PULSE 83; O2SAT 96; BMI 24.4
--- NOTE | 2024-09-03 15:26 | ED_ITS ---
HPI HPI - General Adult General Chief complaint: Wound/Laceration Stated complaint: LACERATION Time Seen by Provider: 09/03/24 14:22 Source: patient Mode of arrival: walk-in Limitations: no limitations History of Present Illness HPI narrative: Patient presents to the emergency department with injury to his left wrist. He got out of bed around 220 in the morning and fell. This was witnessed on the camera by his son later today. He checked up on the patient and noticed that he had a laceration on the left wrist. Patient denies any other injury. He is up-to-date with his tetanus immune status. Related Data Home Medications ?Medication ?Instructions ?Recorded ?Confirmed alprazolam 1 mg tablet,extended 1 mg PO QAM 08/16/23 06/02/24 release 24 hr aspirin 81 mg tablet,delayed 81 mg PO DAILY 08/16/23 06/02/24 release donepezil 10 mg tablet 20 mg PO .QHS 08/16/23 08/24/23 aripiprazole 5 mg tablet 2.5 mg PO .QHS 08/23/23 08/24/23 amlodipine 5 mg tablet 5 mg PO DAILY 06/02/24 06/02/24 escitalopram oxalate 20 mg tablet 20 mg PO DAILY 06/02/24 06/02/24 losartan 50 mg tablet 50 mg PO DAILY 06/02/24 06/02/24 Allergies Allergy/AdvReac Type Severity Reaction Status Date / Time Sulfa (Sulfonamide Allergy Mild Unknown Verified 09/03/24 14:04 Antibiotics) Opioid HPI Opioid Management Most Recent Opioid Data: Last ORT Total Score 0 08/23/23 20:06 08/23/23 Last ORT Risk Category Low Risk 08/23/23 20:06 08/23/23 Review of Systems ROS Status of ROS 10 or more systems reviewed and unremark able except as noted in history and below [facility] Medical History Dementia ?F03.90 - Unspecified dementia, unspecified severity, without behavioral disturbance, psychotic disturbance, mood disturbance, and anxiety (ICD-10) Pre-syncope ?R55 - Syncope and collapse (ICD-10) Multiple falls ?R29.6 - Repeated falls (ICD-10) Syncope ?R55 - Syncope and collapse (ICD-10) Generalized weakness ?R53.1 - Weakness (ICD-10) Myocardial infarct ?I21.9 - Acute myocardial infarction, unspecified (ICD-10) Hypertension ?I10 - Essential (primary) hypertension (ICD-10) Brain bleed ?I61.9 - Nontraumatic intracerebral hemorrhage, unspecified (ICD-10) Presence of Watchman left atrial appendage closure device ?Z95.818 - Presence of other cardiac implants and grafts (ICD-10) A-fib ?I48.91 - Unspecified atrial fibrillation (ICD-10) Prostate cancer ?C61 - Malignant neoplasm of prostate (ICD-10) Family History Other Family history of cancer Social History Within the past year, how often did you have a drink containing alcohol: never Within the past year, how many standard drinks containing alcohol did you have on a typical day: 1 or 2 Within the past year, how often did you have six or more drinks on one occasion: never Total score: 0 Score interpretation: A score less than 4 is consistent with normal alcohol consumption. Smoking status: Former smoker Non-prescribed substance use: denies use Highest level of school completed/degree received: some college, no degree Little interest or pleasure in doing things: not at all Feeling down, depressed, or hopeless: not at all Gender Identity: female Exam Narrative Exam Narrative: Patient afebrile and nondistressed. Head and neck are atraumatic. Chest wall is nontender. Lung sounds are clear to auscultation bilaterally. Heart has regular rate and rhythm. Abdomen soft and benign. He has a nearly 2 cm long laceration on the dorsum of the left wrist towards the ulnar side. The laceration does not extend any deeper than the superficial fascial layer. There is no active bleeding. Range of motion of the left wrist is full and free. Patient does not have any obvious deformity or bony crepitus over the left hand or the left forearm. The rest of the bony survey of his other extremities is negative. He has bilateral 2+ pretibial pitting edema of the distal lower extremities. Constitutional Vital Signs, click to edit/add: Last Vital Signs Pulse 83 09/03/24 14:01 Resp 16 09/03/24 14:01 BP 127/95 H 09/03/24 14:01 Pulse Ox 96 09/03/24 14:01 O2 Del Method Room Air 09/03/24 14:01 Course Vital Signs Vital signs: Vital Signs Pulse Rate 83 09/03/24 14:01 Respiratory Rate 16 09/03/24 14:01 Blood Pressure 127/95 H 09/03/24 14:01 Pulse Oximetry 96 09/03/24 14:01 Oxygen Delivery Method Room Air 09/03/24 14:01 Pulse Rate 83 09/03/24 14:01 Respiratory Rate 16 09/03/24 14:01 Blood Pressure 127/95 H 09/03/24 14:01 Pulse Oximetry 96 09/03/24 14:01 Oxygen Delivery Method Room Air 09/03/24 14:01 Medical Decision Making MDM Narrative Medical decision making narrative: X-rays of the left wrist are read by me and do not reveal any fracture. The wound was cleaned with Hibiclens solution. It is topically anesthetized with LET. Closure is carried over with 2 rahul followed by Band-Aid. There is good wound edge approximation and hemostasis. Patient is discharged in stable condition. Staple removal is advised in 8 to 10 days time and wound care instructions are provided. He is to return to the ED anytime for worsening symptoms. Discharge Plan Discharge Chief Complaint: Wound/Laceration Clinical Impression: Laceration of left wrist Qualifiers: Encounter type: initial encounter Qualified Code(s): S61.512A - Laceration without foreign body of left wrist, initial encounter Patient Disposition: Home, Self-Care Condition: Good Mode of Transportation: Private Vehicle Prescriptions / Home Meds: No Action alprazolam 1 mg tablet extended release 24 hr 1 mg PO QAM aspirin 81 mg tablet,delayed release (DR/EC) 81 mg PO DAILY donepezil 10 mg tablet 20 mg PO .QHS losartan 50 mg tablet 50 mg PO DAILY amlodipine 5 mg tablet 5 mg PO DAILY escitalopram oxalate 20 mg tablet 20 mg PO DAILY aripiprazole 5 mg tablet 2.5 mg PO .QHS Print Language: Bengali Instructions: Laceration (ED) Additional Instructions: Staple removal in 8 to 10 days. Watch for signs of infection. Return for worsening symptoms. Referrals: JC CARR [Primary Care Provider] - 1 week Discharge Date/Time: 09/03/24 16:37
[2024-09-03] MEDS: LIDOCAINE/EPINEPHRINE/TETRACAINE 3 ML GEL.PF.APP 1.5 ML TOPICAL (15:30)
== END 2024-09-03 16:37 | disposition home or self-care (01) ==
PROVIDERS: Emergency Provider Emergency Medicine; PCP Family Medicine
DX: S61.512A Laceration without foreign body of left wrist, initial encounter (principal); W18.39XA Other fall on same level, initial encounter; Z87.891 Personal history of nicotine dependence
CPT/HCPCS: 12001; 73110; 99283

== ENCOUNTER 2024-09-18 03:24 | Emergency (ER) | payer MEDICARE, OTHER, SELFPAY ==
[2024-09-18] VITALS (19 sets, daily range): BP systolic 143–167; BP diastolic 94–117; PULSE 62–89; TEMP 36.5; O2SAT 95–99; BMI 28.8
--- OUTSIDE RECORDS SUMMARY | 2024-09-18 03:31 | XMS_ITS | CCD ---
Author Organization 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 Name Role Phone Cedric Carr Unavailable Mohamud Ruth Unavailable DEO RATUL Unavailable Unavailable CEDRIC CARR Unavailable Unavailable Deo Ratul Unavailable Cedric Carr Primary Care Provider Mohamud Ruth Unavailable Deo Ratul Unavailable [phone] Cedric Carr Primary Care Provider [phone] Mohamud Ruth Unavailable Cedric Carr Primary Care Provider [phone] AUSTEN JEFF Admitting Unavailab AUSTEN Abraham Attending [...] Care Unavailable VIGESAA, KYLE S Referring Unavailable CEDRIC CARR Primary Care Unavailable SNEHAL, ENOCH Admitting Unavailable SNEHAL, ENOCH Attending Unavailable CEDRIC CARR Primary Care Unavailable BRAEDEN SCHAEFER Referring Unavailable [place] Procedure Practitioner Unavailab EVELYN Gunderson Surgeon Unavailable TORRIE, UDAY Attending Unavailable TORRIE, UDAY Consulting Unavailable TORRIE, UDAY Admitting Unavailable HEMESIMI, DR GREENE Primary Care Unavailable HEMEYER, DR [...] UDAY Attending Unavailable MOUKARBEL, KILEY Attending Unavailable Cedric Carr MD Primary Care Provider Cedric Carr MD Unavailable Cedric Carr MD Primary Care Provider [phone] Cedric Carr MD Unavailable Cedric Carr MD Primary Care Provider Cedric Carr MD Unavailable [phone] CEDRIC CARR Attending Unavailable CEDRIC CARR Attending Unavailable CEDRIC CARR Attending Unavailable Allergies Allergy Classification Reported Allergen(s) Allergy Type Date of Onset Reaction(s) Facility Amino Acids (1 source) Amino Acids Drug Allergy 1 [facility] Sulfonamides (antibiotic) (1 source) Sulfonamides (Antibiotic) Drug Allergy 1 [facility] (13 sources) Sulfonamides (Antibiotic); Translations: [SULFA (SULFONAMIDE ANTIBIOTICS)] Propensity to adverse reactions to drug 8 Anaphylaxis [facility] (8 sources) Sulfonamides (Antibiotic) Propensity to adverse reactions to drug 6 Anaphylaxis [place], [place] (2 sources) Amino Acids Drug Allergy 0 [facility] [place] [place] (2 sources) Lisinopril Drug Allergy 0 Other (See Comments) [place] (1 source) Amino Acids Drug Allergy [facility] (2 sources) Sulfonamides (Antibiotic) Drug allergy (disorder) [address] [facility] (1 source) SULFOIL; Translations: [SULFOIL] Propensity to adverse reactions to drug (disorder) 3 [facility] (8 sources) Lisinopril Allergy to substance 3 [facility] (8 sources) Sulfonamides (Antibiotic) Drug Allergy 3 [facility] Healthcare Medications Current Medications Medication Drug Class(es) Dates Sig (Normalized) Sig (Original) acetaminophen 500 mg oral tablet (7 sources) take 1 tablet by mouth every six hours as needed acetaminophen (TYLENOL) 500 MG tablet Take 500 mg by mouth every 6 (six) hours as needed for pain. 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 Take 1 tablet (1 mg) by mouth [...] 10/10/2023 Active amLODIPine 5 mg oral tablet (16 sources) Dihydropyridine Calcium Channel Geoff Start: 01-24-2024 End: 11-16-2024 take 1 tablet by mouth once daily amLODIPine (Norvasc) 5 MG tablet Indications: Benign essential hypertension (CMS/HCC) Take 1 tablet (5 mg) by mouth Daily 90 tablet 1 05/20/2024 11/16/2024 Active Start: 04-28-2020 take 1 tablet by david once daily amLODIPine (NORVASC) 5 MG tablet [...] 0 Active escitalopram 20 mg oral tablet (10 sources) Serotonin Reuptake Inhibitor Start: 04-23-2024 End: 11-16-2024 take 1 tablet by mouth once daily escitalopram (Lexapro) 20 MG tablet Indications: 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 30 tablet 5 04/13/2023 10/10/2023 Active fexofenadine hydrochloride 180 mg oral tablet (8 sources) Histamine-1 Receptor Antagonist take 1 tablet [...] by mouth 2 times daily 0 Active losartan potassium 50 mg oral tablet (8 sources) Angiotensin 2 Receptor Geoff Start: 01-24-2024 End: 11-16-2024 take 1 tablet by mouth once daily losartan (Cozaar) 50 MG tablet Indications: Benign essential hypertension (CMS/HCC) Take 1 tablet (50 mg) by mouth Daily 90 tablet 1 05/20/2024 11/16/2024 Active memantine hydrochloride 5 mg oral tablet (3 sources) V-lrmrse-[place] te Receptor Antagonist Start: 05-02-2023 take 1 tablet [...] nightly 0 Active Multiple Vitamin (Multi-Vitamin) tablet (8 sources) take 1 tablet by mouth in [...] End: 02-22-2018 take 1 tablet by david once daily at mealtime fenofibrate (TRICOR) 48 [...] Resolved: 09-03-2019 03-31-2016 Chronic Acute myocardial infarction (8 sources) Acute non-ST segment elevation myocardial infarction; Translations: [Non-ST elevation (NSTEMI) myocardial infarction] Onset: 12-29-2020 05-16-2023 Chronic Anxiety disorders (10 sources) Generalized anxiety disorder; Translations: [Generalized anxiety disorder] Onset: 03-07-2023 03-07-2023 Chronic Cardiac dysrhythmias (20 sources) Paroxysmal atrial fibrillation; Translations: [Chronic atrial fibrillation] Onset: 12-26-2015 01-18-2018 Chronic Coronary atherosclerosis and other heart disease (16 sources) 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; Translations: [Old myocardial infarction] Onset: 02-03-2022 Chronic Coronary atherosclerosis and other heart disease (2 sources) Presence of coronary angioplasty implant and graft; Translations: [Presence of coronary angioplasty implant and graft] Onset: 03-24-2023 Episodic Delirium, dementia, and amnestic and other cognitive disorders (17 sources) Vascular dementia without behavioral disturbance; Translations: [Vascular dementia without behavioral disturbance] Onset: 03-07-2023 03-07-2023 Chronic Disorders of lipid metabolism (20 sources) Hyperlipidemia; Translations: [Mixed hyperlipidemia] Onset: 12-26-2015 03-31-2016 Chronic E Codes: Fall (2 sources) Fall; Translations: [Unspecified fall, sequela] 05-20-2024 Episodic Essential hypertension (20 sources) Essential hypertension; Translations: [Essential (primary) hypertension] Onset: 12-26-2015 03-31-2016 Chronic Hypertension with complications and secondary hypertension (16 sources) Hypertensive emergency; Translations: [Hypertensive renal disease] Onset: 03-31-2016 03-31-2016 Chronic Intracranial injury (1 source) Traumatic subdural hemorrhage with loss of consciousness of unspecified duration, initial encounter; Translations: [Traumatic subdural hemorrhage with loss of consciousness of unspecified duration, initial encounter] Onset: 01-25-2018 Episodic Malaise and fatigue (10 sources) Fatigue; Translations: [Chronic fatigue, unspecified] Onset: 03-07-2023 03-07-2023 Chronic Malaise and fatigue (2 sources) Asthenia; Translations: [Weakness] 07-24-2023 Episodic Mood disorders (12 sources) Moderate major depression ; Translations: [Major depressive disorder, single episode, moderate] Onset: 03-07-2023 03-07-2023 Chronic Nutritional deficiencies (4 sources) Vitamin D deficiency; Translations: [Vitamin D deficiency disease] Chronic Other and ill-defined heart disease (8 sources) Bilateral enlargement of atria; Translations: [Cardiomegaly] Onset: 03-07-2023 03-07-2023 Chronic Other circulatory disease (2 sources) Presence of other cardiac implants and grafts; Translations: [Presence of other cardiac implants and grafts] Onset: 08-24-2022 Chronic Other circulatory disease (8 sources) Disorder of aorta; 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] Onset: 03-07-2023 03-07-2023 Chronic Other injuries and conditions due to external causes (2 sources) At risk for falls ; Translations: [History of falling] 07-24-2023 Episodic Other lower respiratory disease (8 sources) Pulmonary granuloma; Translations: [Pulmonary fibrosis, unspecified] Onset: 03-07-2023 03-07-2023 Chronic Other non-traumatic joint disorders (2 sources) Pain in left shoulder; Translations: [Pain in joint, shoulder region] 05-20-2024 Episodic Other upper respiratory disease (8 sources) Allergic rhinitis due to pollen; Translations: [Allergic rhinitis due to pollen] Onset: 03-07-2023 03-07-2023 Chronic Spondylosis; intervertebral disc disorders; other back problems (8 sources) Spondylosis; Translations: [Spondylosis, unspecified] Onset: 03-07-2023 03-07-2023 Chronic Thyroid disorders (8 sources) Acquired hypothyroidism; Translations: [Hypothyroidism, unspecified] Onset: 03-07-2023 03-07-2023 Chronic Unclassified (4 sources) EMNDEZ (acute kidney injury) (HCC); Translations: [MENDEZ (acute kidney injury)] Onset: 04-06-2018 04-06-2018 Unclassified (2 sources) Other persistent atrial fibrillation; Translations: [Other persistent atrial fibrillation] Onset: 06-16-2022 Past or Other Problems Problem Classification Problem Date Documented Da te Episodic/Chronic Acute and unspecified renal failure (4 sources) Acute kidney failure, unspecified; Translations: [MENDEZ (acute kidney injury) (HCC)] Onset: 04-06-2018 04-06-2018 Episodic Adjustment disorders (8 sources) Acute situational disturbance; Translations: [Adjustment disorder, unspecified] Onset: 03-07-2023 Resolved: 05-23-2024 03-07-2023 Chronic Administrative/social admission (8 sources) Sickness in the family; Translations: [Other stressful life events affecting family and household] Onset: 03-07-2023 Resolved: 05-23-2024 03-07-2023 Episodic Cancer of prostate (8 sources) History of malignant neoplasm of prostate; Translations: [Personal history of malignant neoplasm of prostate] Onset: 03-07-2023 03-07-2023 Episodic Epilepsy; convulsions (8 sources) Partial seizure; Translations: [Partial seizures] Onset: 04-02-2016 04-02-2016 Episodic Other aftercare (3 sources) Patient encounter status; 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/ant 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] Onset: 03-07-2023 03-07-2023 Episodic Other aftercare (10 sources) Drug therapy finding; Translations: [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) drug therapy] Onset: 03-07-2023 03-07-2023 Episodic Other aftercare (10 sources) Polypharmacy ; Translations: [Other fpc (current) drug therapy] Onset: 03-07-2023 Resolved: 10-17-2023 03-07-2023 Episodic Other aftercare (5 sources) Long-term current use of drug therapy; Translations: [snf (current) use of antithrombotics/ant iplatelets] Onset: 03-07-2023 03-07-2023 Episodic Other hereditary and degenerative nervous system conditions (8 sources) Impaired cognition; Translations: [Mild cognitive impairment, so stated] Onset: 03-07-2023 Resolved: 05-23-2024 03-07-2023 Chronic Other lower respiratory disease (1 source) Other nonspecific abnormal finding of lung field; Translations: [OTH NONSPECIFIC ABN FIND LNG FIELD] Onset: 07-27-2021 Episodic Other nervous system disorders (10 sources) White matter disease; Translations: [White matter disease, unspecified] Onset: 03-07-2023 03-07-2023 Episodic Residual codes; unclassified (8 sources) Creatinine level - finding; Translations: [Creatinine elevation] Onset: 12-26-2015 03-31-2016 Episodic Residual codes; unclassified (8 sources) Amnesia; Translations: [Other amnesia] Onset: 03-07-2023 03-07-2023 Episodic Results Test Name Value Interpretation Reference Range Facility Office Visiton 03-24-2023 Follow-up visit [id number] Keaton Hammond es R Sr. 1940 M Date Provider Department Center 03/24/2023 KILEY HASSAN [facility] No family history on file Level of Service:16073 [place] OFFICE/OUTPATIENT ESTABLISHED LOW MDM 20-29 MIN Reason for Visit and Comments: Follow-up [[id number]] [facility] Office Visiton 08-24-2022 Follow-up visit [id number] Keaton Hammnod es R Sr. 1940 [facility] Provider Department Center 08/24/2022 UDAY KLEIN [facility] No family history on file Level of Service:89114 [place] OFFICE/OUTPATIENT ESTABLISHED MOD MDM 30-39 MIN Reason for Visit and Comments: Follow-up [[id number]] [facility] CBC AUTO DIFFon 02-03-2022 BASO # 0.1 103/ul Normal 0.0-0.1 [facility] Comment on above: Performed By: #### C BC #### [facility] [address] [address] [address] Kenneth Sepulveda Basophils/100 WBC (Bld) 0.6 % Normal 0.2-2.[address] [facility] Comment on above: Performed By: #### C BC #### [facility] [address] [address] [address] Kenneth Sepulveda EO # 0.2 103/ul Normal 0.0-0.[address] [facility] Comment on above: Performed By: #### C BC #### [facility] [address] [address] [address] Kenneth Sepulveda Eosinophils/100 WBC (Bld) 2.1 % Normal 0.9-7.0 [facility] Comment on above: Performed By: #### C BC #### [facility] [address] [place] [address] Dr. Kenneth Sepulveda Erythrocyte distribution width (RBC) [Ratio] 12.4 % Normal 11.0-15.0 [facility] Comment on above: Performed By: #### C BC #### [facility] [address] [place] [address] Dr. Kenneth Sepulveda Hematocrit (Bld) [Volume fraction] 42.4 % Normal 42.0-54.0 [facility] Comment on above: Performed By: #### C BC #### [facility] [address] [place] [address] Dr. Kenneth Sepulveda Hemoglobin (Bld) [Mass/Vol] 14.4 g/dL Normal 14.0-18.0 [facility] Comment on above: Performed By: #### C BC #### [facility] [address] [place] [address] Dr. Kenneth Sepulveda IG # 0.03 10e3/ul Normal 0.00-0.03 [facility] Comment on above: Performed By: #### C BC #### [facility] [address] [place] [address] Dr. Kenneth Sepulveda IG % 0.4 % Normal 0.0-0.5 [facility] Comment on above: Performed By: #### C BC #### [facility] [address] [place] [address] Dr. Kenneth Sepulveda LYMPH # 1.7 103/ul Normal 1.2-3.8 [facility] Comment on above: Performed By: #### C BC #### [facility] [address] [place] [address] Dr. Kenneth Sepulveda Lymphocytes/100 WBC (Bld) 21.8 % Normal 20.5-60.0 [facility] Comment on above: Performed By: #### C BC #### [facility] [address] [place] [address] Dr. Kenneth Sepulveda MANUAL DIFF REQ NO Normal [facility] Comment on above: Performed By: #### C BC #### [facility] [address] [place] [address] Dr. Kenneth Sepulveda MCH (RBC) [Entitic mass] 30.6 pg Normal 25.9-34.[address] [facility] Comment on above: Performed By: #### C BC #### [facility] [address] [place] [address] Dr. Kenneth Sepulveda MCHC (RBC) [Mass/Vol] 34.0 g/dL Normal 29.9-35.[address] [facility] Comment on above: Performed By: #### C BC #### [facility] [address] [place] [address] Dr. Kenneth Sepulveda MCV (RBC) [Entitic vol] 90.2 fL Normal 80.0-94.0 [facility] Comment on above: Performed By: #### C BC #### [facility] [address] [place] [address] Dr. Kenneth Sepulveda MONO # 0.6 103/ul Normal 0.3-0.[address] [facility] Comment on above: Performed By: #### C BC #### [facility] [address] [place] [address] Dr. Kenneth Sepulveda Monocytes/100 WBC (Bld) 7.1 % Normal 1.7-12.0 [facility] Comment on above: Performed By: #### C BC #### [facility] [address] [place] [address] Dr. Kenneth Sepulveda NEUT # 5.3 103/ul Normal 1.4-6.[address] [facility] Comment on above: Performed By: #### C BC #### [facility] [address] [place] [address] Dr. Kenneth Sepulveda Neutrophils/100 WBC (Bld) 68.0 % Normal 43.0-75.[address] [facility] Comment on above: Performed By: #### C BC #### [facility] [address] [place] [address] Dr. Kenneth Sepulveda Platelet mean volume (Bld) [Entitic vol] 9.1 fL Critically low 9.5-13.[address] [facility] Comment on above: Performed By: #### C BC #### [facility] [address] [address] [address] Kenneth Sepulveda PLT 197 103/ul Normal 150-450 [facility] Comment on above: Performed By: #### C BC #### [facility] [address] [address] [address] Kenneth Sepulveda RBC 4.70 106/ul Normal 4.70-6.10 [facility] Comment on above: Performed By: #### C BC #### [facility] [address] [address] [address] Kenneth Sepulveda WBC 7.8 103/ul Normal 4.0-11.0 [facility] Comment on above: Performed By: #### C BC #### [facility] [address] [place] [address] Dr. Kenneth Sepulveda LIPID PROFILEon 02-03-2022 CHOL-HDL RATIO NORM SEE BELOW Normal [facility] Comment on above: Result Comment: 3.3 - 4.4 LOW RISK 4.4 - 7.1 AVERAGE RISK 7.1 - 11.0 MODERATE RISK >11.0 HIGH RISK Performed By: #### L IPID, CMP #### [facility] [address] [place] [address] Dr. Kenneth Sepulveda Cholesterol [Mass/Vol] 116 mg/dL Normal <=200 [facility] Comment on above: Performed By: #### L IPID, CMP #### [facility] [address] [place] [address] Dr. Kenneth Sepulveda Cholesterol in HDL [Mass/Vol] 40 mg/dL Normal 40-60 [facility] Comment on above: Performed By: #### L IPID, CMP #### [facility] [address] [address] [address] Kenneth Sepulveda Cholesterol in LDL [Mass/Vol] 57.2 mg/dL Normal [facility] Comment on above: Performed By: #### L IPID, CMP #### [facility] [address] [place] [address] Dr. Kenneth Sepulveda Cholesterol.total/Ch olesterol in HDL [Mass ratio] 2.9 {ratio} Normal [facility] Comment on above: Performed By: #### L IPID, CMP #### [facility] [address] [address] [address] Kenneth Sepulveda HDL NORMAL > or = 60 mg/dl - LO W CARDIOVASCULAR RISK <40 mg/dl - HIGH CARDIOVASCULAR RISK Normal [facility] Comment on above: Performed By: #### L IPID, CMP #### [facility] [address] [address] [address] Kenneth Sepulveda LDL CALC NORMAL SEE BELOW Normal [facility] Comment on above: Result Comment: <100 mg/dl OPTIMAL 100 - 129 mg/dl NEAR OR ABOVE OPTIMAL 130 - 159 mg/dl BORDERLINE HIGH 160 - 189 mg/dl HIGH >190 mg/dl VERY HIGH Performed By: #### L IPID, CMP #### [facility] [address] [place] [address] Dr. Kenneth Sepulveda Triglyceride [Mass/Vol] 94 mg/dL Normal <=150 [facility] Comment on above: Performed By: #### L IPID, CMP #### [facility] [address] [address] [address] Kenneth Sepulveda VLDL CALC 18.8 mg/dL Normal [facility] Comment on above: Performed By: #### L IPID, CMP #### [facility] [address] [place] [address] Dr. Kenneth Sepulveda PROF 14(COMP METB)on 022 Albumin [Mass/Vol] 3.6 g/dL Normal 3.4-5.0 [facility] Comment on above: Performed By: #### L IPID, CMP #### [facility] [address] [place] [address] Dr. Kenneth Sepulveda Albumin/Globulin [Mass ratio] 1.1 {ratio} Normal [facility] Comment on above: Performed By: #### L IPID, CMP #### [facility] [address] [address] [address] Kenneth Sepulveda ALP [Catalytic activity/Vol] 88 U/L Normal 46-116 [facility] Comment on above: Performed By: #### L IPID, CMP #### [facility] [address] [address] [address] Kenneth Sepulveda ALT [Catalytic activity/Vol] 40 U/L Normal 16-63 [facility] Comment on above: Performed By: #### L IPID, CMP #### [facility] [address] [address] [address] Kenneth Sepulveda Anion gap [Moles/Vol] 14.3 mmol/L Normal [facility] Comment on above: Performed By: #### L IPID, CMP #### [facility] [address] [address] [address] Kenneth Sepulveda AST [Catalytic activity/Vol] 25 U/L Normal 15-37 [facility] Comment on above: Performed By: #### L IPID, CMP #### [facility] [address] [place] [address] Dr. Kenneth Sepulveda Bilirubin [Mass/Vol] 1.0 mg/dL Normal 0.2-1.0 [facility] Comment on above: Performed By: #### L IPID, CMP #### [facility] [address] [place] [address] Dr. Kenneth Sepulveda Calcium [Mass/Vol] 8.9 mg/dL Normal 8.5-10.1 [facility] Comment on above: Performed By: #### L IPID, CMP #### [facility] [address] [place] [address] Dr. Kenneth Sepulveda Chloride [Moles/Vol] 98 mmol/L Normal 98-107 [facility] Comment on above: Performed By: #### L IPID, CMP #### [facility] [address] [place] [address] Dr. Kenneth Sepulveda CO2 [Moles/Vol] 26.6 mmol/L Normal 21.0-32.0 [facility] Comment on above: Performed By: #### L IPID, CMP #### [facility] [address] [place] [address] Dr. Kenneth Sepulveda Creatinine [Mass/Vol] 1.17 mg/dL Normal 0.70-1.30 [facility] Comment on above: Performed By: #### L IPID, CMP #### [facility] [address] [address] [address] Kenneth Sepulveda EGFR-AF MONEGASQUE >60 Normal >=60 [facility] Comment on above: Performed By: #### L IPID, CMP #### [facility] [address] [address] [address] Kenneth Sepulveda EGFR-NON AF MONEGASQUE 60 mL/min/1.73m2 Normal >=60 [facility] Comment on above: Performed By: #### L IPID, CMP #### [facility] [address] [address] [address] Kenneth Sepulveda Globulin (S) [Mass/Vol] 3.2 g/dL Normal [facility] Comment on above: Performed By: #### L IPID, CMP #### [facility] [address] [address] [address] Kenneth Sepulveda Glucose [Mass/Vol] 90 mg/dL Normal 74-106 [facility] Comment on above: Performed By: #### L IPID, CMP #### [facility] [address] [address] [address] Kenneth Sepulveda Potassium [Moles/Vol] 3.9 mmol/L Normal 3.5-5.1 [facility] Comment on above: Performed By: #### L IPID, CMP #### [facility] [address] [address] [address] Kenneth Sepulveda Protein [Mass/Vol] 6.8 g/dL Normal 6.4-8.2 [facility] Comment on above: Performed By: #### L IPID, CMP #### [facility] [address] [address] [address] Kenneth Sepulveda Sodium [Moles/Vol] 135 mmol/L Critically low 136-145 Th [facility] Comment on above: Performed By: #### L IPID, CMP #### [facility] [address] [address] [address] Kenneth Sepulveda Urea nitrogen [Mass/Vol] 14.0 mg/dL Normal 7.0-18.0 [facility] Comment on above: Performed By: #### L IPID, CMP #### [facility] [address] [address] [address] Kenneth Sepulveda Urea nitrogen/Creatinine [Mass ratio] 12.0 mg/mg Normal [facility] Comment on above: Performed By: #### L IPID, CMP #### [facility] [address] [address] [address] Kenneth Sepulveda XR CHEST 2 Von [...] BOY ADAME Date: 2021-07-22 13:26 Normal [address] [facility] CBC AUTO DIFFon 07-21-2021 BASO # 0.0 103/ul Normal 0.0-0.1 [facility] Comment on above: Performed By: #### C BC #### [facility] [address] [place] [address] Dr. Kenneth Sepulveda Basophils/100 WBC (Bld) 0.5 % Normal 0.2-2.[address] [facility] Comment on above: Performed By: #### C BC #### [facility] [address] [place] [address] Dr. Kenneth Sepulveda EO # 0.1 103/ul Normal 0.0-0.[address] [facility] Comment on above: Performed By: #### C BC #### [facility] [address] [place] [address] Dr. Kenneth Sepulveda Eosinophils/100 WBC (Bld) 1.3 % Normal 0.9-7.[address] [facility] Comment on above: Performed By: #### C BC #### [facility] [address] [place] [address] Dr. Kenneth Sepulveda Erythrocyte distribution width (RBC) [Ratio] 13.2 % Normal 11.0-15.0 [facility] Comment on above: Performed By: #### C BC #### [facility] [address] [place] [address] Dr. Kenneth Sepulveda Hematocrit (Bld) [Volume fraction] 43.5 % Normal 42.0-54.0 [facility] Comment on above: Performed By: #### C BC #### [facility] [address] [place] [address] Dr. Kenneth Sepulveda Hemoglobin (Bld) [Mass/Vol] 14.5 g/dL Normal 14.0-18.0 [facility] Comment on above: Performed By: #### C BC #### [facility] [address] [place] [address] Dr. Kenneth Sepulveda IG # 0.03 10e3/ul Normal 0.00-0.03 [facility] Comment on above: Performed By: #### C BC #### [facility] [address] [place] [address] Dr. Kenneth Sepulveda IG % 0.4 % Normal 0.0-0.5 [facility] Comment on above: Performed By: #### C BC #### [facility] [address] [place] [address] Dr. Kenneth Sepulveda LYMPH # 2.2 103/ul Normal 1.2-3.8 [facility] Comment on above: Performed By: #### C BC #### [facility] [address] [place] [address] Dr. Kenneth Sepulveda Lymphocytes/100 WBC (Bld) 27.7 % Normal 20.5-60.0 [facility] Comment on above: Performed By: #### C BC #### [facility] [address] [place] [address] Dr. Kenneth Sepulveda MANUAL DIFF REQ NO Normal [facility] Comment on above: Performed By: #### C BC #### [facility] [address] [place] [address] Dr. Kenneth Sepulveda MCH (RBC) [Entitic mass] 30.4 pg Normal 25.9-34.[address] [facility] Comment on above: Performed By: #### C BC #### [facility] [address] [place] [address] Dr. Kenneth Sepulveda MCHC (RBC) [Mass/Vol] 33.3 g/dL Normal 29.9-35.[address] [facility] Comment on above: Performed By: #### C BC #### [facility] [address] [place] [address] Dr. Kenneth Sepulveda MCV (RBC) [Entitic vol] 91.2 fL Normal 80.0-94.[address] [facility] Comment on above: Performed By: #### C BC #### [facility] [address] [place] [address] Dr. Kenneth Sepulveda MONO # 0.5 103/ul Normal 0.3-0.[address] [facility] Comment on above: Performed By: #### C BC #### [facility] [address] [place] [address] Dr. Kenneth Sepulveda Monocytes/100 WBC (Bld) 6.6 % Normal 1.7-12.[address] [facility] Comment on above: Performed By: #### C BC #### [facility] [address] [place] [address] Dr. Kenneth Sepulveda NEUT # 4.9 103/ul Normal 1.4-6.[address] [facility] Comment on above: Performed By: #### C BC #### [facility] [address] [place] [address] Dr. Kenneth Sepulveda Neutrophils/100 WBC (Bld) 63.5 % Normal 43.0-75.[address] [facility] Comment on above: Performed By: #### C BC #### [facility] [address] [place] [address] Dr. Kenneth Sepulveda Platelet mean volume (Bld) [Entitic vol] 8.7 fL Critically low 9.5-13.[address] [facility] Comment on above: Performed By: #### C BC #### [facility] [address] [address] [address] Kenneth Sepulveda PLT 219 103/ul Normal 150-450 [facility] Comment on above: Performed By: #### C BC #### [facility] [address] [place] [address] Dr. Kenneth Sepulveda RBC 4.77 106/ul Normal 4.70-6.10 [facility] Comment on above: Performed By: #### C BC #### [facility] [address] [place] [address] Dr. Kenneth Sepulveda WBC 7.8 103/ul Normal 4.0-11.0 [facility] Comment on above: Performed By: #### C BC #### [facility] [address] [place] [address] Dr. Kenneth Sepulveda LIPID PROFILEon 07-21-2021 CHOL-HDL RATIO NORM SEE BELOW Normal [facility] Comment on above: Result Comment: 3.3 - 4.4 LOW RISK 4.4 - 7.1 AVERAGE RISK 7.1 - 11.0 MODERATE RISK >11.0 HIGH RISK Performed By: #### C MP, LIPID #### [facility] [address] [place] [address] Dr. Kenneth Sepulveda Cholesterol [Mass/Vol] 151 mg/dL Normal <=200 [facility] Comment on above: Performed By: #### C MP, LIPID #### [facility] [address] [place] [address] Dr. Kenneth Sepulveda Cholesterol in HDL [Mass/Vol] 45 mg/dL Normal [facility] Comment on above: Performed By: #### C MP, LIPID #### [facility] [address] [place] [address] Dr. Kenneth Sepulveda Cholesterol in LDL [Mass/Vol] 88.4 mg/dL Normal [facility] Comment on above: Performed By: #### C MP, LIPID #### [facility] [address] [place] [address] Dr. Kenneth Sepulveda Cholesterol.total/Ch olesterol in HDL [Mass ratio] 3.4 {ratio} Normal [facility] Comment on above: Performed By: #### C MP, LIPID #### [facility] [address] [place] [address] Dr. Kenneth Sepulveda HDL NORMAL > or = 60 mg/dl - LO W CARDIOVASCULAR RISK <40 mg/dl - HIGH CARDIOVASCULAR RISK Normal [facility] Comment on above: Performed By: #### C MP, LIPID #### [facility] [address] [place] [address] Dr. Kenneth Sepulveda LDL CALC NORMAL SEE BELOW Normal [facility] Comment on above: Result Comment: <100 mg/dl OPTIMAL 100 - 129 mg/dl NEAR OR ABOVE OPTIMAL 130 - 159 mg/dl BORDERLINE HIGH 160 - 189 mg/dl HIGH >190 mg/dl VERY HIGH Performed By: #### C MP, LIPID #### [facility] [address] [place] [address] Dr. Kenneth Sepulveda Triglyceride [Mass/Vol] 88 mg/dL Normal <=150 [facility] Comment on above: Performed By: #### C MP, LIPID #### [facility] [address] [place] [address] Dr. Kenneth Sepulveda VLDL CALC 17.6 mg/dL Normal [facility] Comment on above: Performed By: #### C MP, LIPID #### [facility] [address] [place] [address] Dr. Kenneth Sepulveda PROF 14(COMP METB)on 022 Albumin [Mass/Vol] 3.7 g/dL Normal 3.5-5.0 [facility] Comment on above: Performed By: #### C MP, LIPID #### [facility] [address] [place] [address] Dr. Kenneth Sepulveda Albumin/Globulin [Mass ratio] 1.1 {ratio} Normal [facility] Comment on above: Performed By: #### C MP, LIPID #### [facility] [address] [place] [address] Dr. Kenneth Sepulveda ALP [Catalytic activity/Vol] 57 U/L Normal 38-126 [facility] Comment on above: Performed By: #### C MP, LIPID #### [facility] [address] [place] [address] Dr. Kenneth Sepulveda ALT [Catalytic activity/Vol] 20 U/L Critically low 21-72 [facility] Comment on above: Performed By: #### C MP, LIPID #### [facility] [address] [place] [address] Dr. Kenneth Sepulveda Anion gap [Moles/Vol] 9.8 mmol/L Normal [facility] Comment on above: Performed By: #### C MP, LIPID #### [facility] [address] [place] [address] Dr. Kenneth Sepulveda AST [Catalytic activity/Vol] 15 U/L Critically low 17-59 [facility] Comment on above: Performed By: #### C MP, LIPID #### [facility] [address] [place] [address] Dr. Kenneth Sepulveda Bilirubin [Mass/Vol] 0.8 mg/dL Normal 0.2-1.3 [facility] Comment on above: Performed By: #### C MP, LIPID #### [facility] [address] [place] [address] Dr. Kenneth Sepulveda Calcium [Mass/Vol] 9.5 mg/dL Normal 8.4-10.2 [facility] Comment on above: Performed By: #### C MP, LIPID #### [facility] [address] [place] [address] Dr. Kenneth Sepulveda Chloride [Moles/Vol] 103 mmol/L Normal 98-107 [facility] Comment on above: Performed By: #### C MP, LIPID #### [facility] [address] [place] [address] Dr. Kenneth Sepulveda CO2 [Moles/Vol] 30.0 mmol/L Normal 22.0-30.0 [facility] Comment on above: Performed By: #### C MP, LIPID #### [facility] [address] [place] [address] Dr. Kenneth Sepulveda Creatinine [Mass/Vol] 1.45 mg/dL Critically high 0.66-1.25 [facility] Comment on above: Performed By: #### C MP, LIPID #### [facility] [address] [place] [address] Dr. Kenneth Sepulveda EGFR-AF MONEGASQUE 56 mL/min/1.73m2 Critically low >=60 [facility] Comment on above: Performed By: #### C MP, LIPID #### [facility] [address] [address] [address] Kenneth Sepulveda EGFR-NON AF MONEGASQUE 47 mL/min/1.73m2 Critically low >=60 [facility] Comment on above: Performed By: #### C MP, LIPID #### [facility] [address] [address] [address] Kenneth Sepulveda Globulin (S) [Mass/Vol] 3.4 g/dL Normal [facility] Comment on above: Performed By: #### C MP, LIPID #### [facility] [address] [place] [address] Dr. Kenneth Sepulveda Glucose [Mass/Vol] 83 mg/dL Normal 74-106 [facility] Comment on above: Performed By: #### C MP, LIPID #### [facility] [address] [address] [address] Kenneth Sepulveda Potassium [Moles/Vol] 3.8 mmol/L Normal 3.4-5.0 [facility] Comment on above: Performed By: #### C MP, LIPID #### [facility] [address] [place] [address] Dr. Kenneth Sepulveda Protein [Mass/Vol] 7.1 g/dL Normal 6.1-8.2 [facility] Comment on above: Performed By: #### C MP, LIPID #### [facility] [address] [place] [address] Dr. Kenneth Sepulveda Sodium [Moles/Vol] 139 mmol/L Normal 137-145 [facility] Comment on above: Performed By: #### C MP, LIPID #### [facility] [address] [address] [address] Kenneth Sepulveda Urea nitrogen [Mass/Vol] 26.0 mg/dL Critically high 9.0-20.0 [facility] Comment on above: Performed By: #### C MP, LIPID #### [facility] [address] [place] [address] Dr. Kenneth Sepulveda Urea nitrogen/Creatinine [Mass ratio] 17.9 mg/mg Normal [facility] Comment on above: Performed By: #### C MP, LIPID #### [facility] [address] [address] [address] Kenneth Sepulveda BASIC METABOLIC PANELon 05-2 Calcium [Mass/Vol] 9.1 mg/dL Normal 8.6-10.3 [facility] Comment on above: Order Comment: No: D o not add to previous draw Performed By: #### 3 0477, [id number] #### [facility] [address] [place] [address], [place] Chloride [Moles/Vol] 100 mmol/L Normal 98-107 [facility] Comment on above: Order Comment: No: D o not add to previous draw Performed By: #### 3 7, [id number] #### [facility] [address] [place] [address], [place] CO2 [Moles/Vol] 25 mmol/L Normal 21-31 The [facility] Comment on above: Order Comment: No: D o not add to previous draw Performed By: #### 3 0477, 71964 #### [facility] [address] [place] [address], [place] Creatinine [Mass/Vol] 1.45 mg/dL High 0.70-1.30 [facility] Comment on above: Order Comment: No: D o not add to previous draw Performed By: #### 3 0477, 59519 #### [facility] [address] [place] [address], [place] eGFR- 57 ml/min/1.73sq m Abnormal >60 [facility] Comment on above: Order Comment: No: D o not add to previous draw Result Comment: Calc ulation may not be valid for patients over 70 years Performed By: #### 3 0477, 73813 #### [facility] [address] [place] [address], [facility] eGFR- non- 47 ml/min/1.73sq m Abnormal >60 [facility] Comment on above: Order Comment: No: D o not add to previous draw Result Comment: Calc ulation may not be valid for patients over 70 years Performed By: #### 3 7, 77620 #### [facility] [address] [place] [address], [place] Glucose [Mass/Vol] 93 mg/dL Normal 70-100 [facility] Comment on above: Order Comment: No: D o not add to previous draw Performed By: #### 3 476, 12604 #### [facility] [address] [place] [address], [place] Potassium [Moles/Vol] 4.1 mmol/L Normal 3.5-5.1 [facility] Comment on above: Order Comment: No: D o not add to previous draw Performed By: #### 3 476, 69059 #### [facility] [address] [place] [address], [place] Sodium [Moles/Vol] 132 mmol/L Low 136-145 [facility] Comment on above: Order Comment: No: D o not add to previous draw Performed By: #### 3 7, [id number] #### [facility] [address] [place] [address], [place] Urea nitrogen [Mass/Vol] 27 mg/dL High 7-25 [facility] Comment on above: Order Comment: No: D o not add to previous draw Performed By: #### 3 7, 16110 #### [facility] [address] [place] [address], [facility] CBC COMPLETE BLOOD COUNTon 11-03-2020 Erythrocyte distribution width (RBC) [Ratio] 12.9 % Normal 11.5-15.0 [facility] Comment on above: Order Comment: No: D o not add to previous draw Performed By: #### 8 [id number] #### [facility] [address] [place] [address], [facility] Hematocrit (Bld) [Volume fraction] 39.8 % Normal 39.0-50.0 [facility] Comment on above: Order Comment: No: D o not add to previous draw Performed By: #### 8 5123 #### [facility] [address] [place] [address], [facility] Hemoglobin (Bld) [Mass/Vol] 13.3 g/dL Normal 13.0-17.0 [facility] Comment on above: Order Comment: No: D o not add to previous draw Performed By: #### 8 5123 #### [facility] [address] [place] [address], [facility] MCH (RBC) [Entitic mass] 29.8 pg Normal 27.0-33.0 [facility] Comment on above: Order Comment: No: D o not add to previous draw Performed By: #### 8 5123 #### [facility] [address] [place] [address], [facility] MCHC (RBC) [Mass/Vol] 33.4 g/dL Normal 32.0-35.0 [facility] Comment on above: Order Comment: No: D o not add to previous draw Performed By: #### 8 5123 #### [facility] [address] [place] [address], [facility] MCV (RBC) [Entitic vol] 89.0 fL Normal 82.0-98.0 [facility] Comment on above: Order Comment: No: D o not add to previous draw Performed By: #### 8 5123 #### [facility] [address] [place] [id number], [facility] Nucleated RBC/100 WBC (Bld) [Ratio] 0 % Normal 0-0 [facility] Comment on above: Order Comment: No: D o not add to previous draw Performed By: #### 8 5123 #### [facility] [address] [facility] [address], [facility] PLAT CNT 226 10*3/uL Normal 150-400 The [facility] Comment on above: Order Comment: No: D o not add to previous draw Performed By: #### 8 5123 #### [facility] [address] [facility] [address], [facility] RBC (Bld) [#/Vol] 4.47 10*6/uL Normal 4.20-5.70 [facility] Comment on above: Order Comment: No: D o not add to previous draw Performed By: #### 8 5123 #### [facility] [address] [facility] [address], [facility] WBC (Bld) [#/Vol] 9.70 10*3/uL Normal 4.00-10.60 [facility] Comment on above: Order Comment: No: D o not add to previous draw Performed By: #### 8 5123 #### [facility] [address] Cardiovascular Lab Reporton 11-03-2020 Cardiovascular Lab Report [facility] Patient Name: Manish , [facility] Nette Bryan MR #: [id number] Department of Physician: Julieta Galvan MBienvenido Division of Service Date: 11/02/2020 Cardiology Birthdate: 1940 Adult Cardiovascular Room #: 3AB [id number] [address] [place] [address] Cardiovascular Laboratory Report CLINICAL PRESENTATION: The patient [...] High-intensity statin therapy. 5. Outpatient followup with [facility]. 6. Referral to cardiac rehabilitation. PROCEDURES: [...] infiltrated over the right radial artery. A 6-Albanian Terumo Glidesheath slender was placed in right radial artery. The radial anti-vasospasm cocktail, nitroglycerin 200 mcg and verapamil 2.5 mg were administered through the sheath. All catheter exchanges were made over the Browntape guidewire. A 6-Albanian JR5 used to engage the right coronary artery. A 6-Albanian JL3.5 was used to engage the left main coronary artery. Coronary angiograms performed in multiple orthogonal views using hand injection of contrast. At this time, it was apparent that the mid LAD had 80% stenosis. I elected to proceed with PCI. Heparin anticoagulation was used for this procedure. ACT was maintained greater than 200 seconds. A Agency Spottertronic EBU 4.0 guide was engaged in left [...] Partida M.D. Date Trans: 11/02/2020 10:36 P/chandler [id number] cc: Cedric Carr M.D. [address] [place] [address] [facility] [id number] Braeden Schaefer M.D. [address] [facility] [address] Normal [facility] BASIC METABOLIC PANELon 05-2 Calcium [Mass/Vol] 9.2 mg/dL Normal 8.6-10.3 The [facility] Comment on above: Order Comment: No: D o not add to previous draw Performed By: #### 0 0071, 69225, 23286 #### [facility] [address] [place] [address], [place] Chloride [Moles/Vol] 102 mmol/L Normal 98-107 [facility] Comment on above: Order Comment: No: D o not add to previous draw Performed By: #### 0 0071, 71940, 68378 #### [facility] [address] [place] [address], [place] CO2 [Moles/Vol] 24 mmol/L Normal 21-31 [facility] Comment on above: Order Comment: No: D o not add to previous draw Performed By: #### 0 0071, 98740, 96786 #### [facility] [address] [place] [address], [place] Creatinine [Mass/Vol] 1.44 mg/dL High 0.70-1.30 [facility] Comment on above: Order Comment: No: D o not add to previous draw Performed By: #### 0 0071, 03003, 69153 #### [facility] [address] [place] [address], [facility] eGFR- 57 ml/min/1.73sq m Abnormal >60 The [facility] Comment on above: Order Comment: No: D o not add to previous draw Result Comment: Calc ulation may not be valid for patients over 70 years Performed By: #### 0 0071, 34498, 56605 #### [facility] [address] [place] [address], [facility] eGFR- non- 47 ml/min/1.73sq m Abnormal >60 [facility] Comment on above: Order Comment: No: D o not add to previous draw Result Comment: Calc ulation may not be valid for patients over 70 years Performed By: #### 0 0071, 23985, 30349 #### [facility] [address] [place] [address], [place] Glucose [Mass/Vol] 90 mg/dL Normal 70-100 [facility] Comment on above: Order Comment: No: D o not add to previous draw Performed By: #### 0 0071, 94916, 41698 #### [facility] [address] [place] [address], [place] Potassium [Moles/Vol] 3.4 mmol/L Low 3.5-5.1 [facility] Comment on above: Order Comment: No: D o not add to previous draw Performed By: #### 0 0071, 93047, 83934 #### [facility] [address] [place] [address], [place] Sodium [Moles/Vol] 136 mmol/L Normal 136-145 [facility] Comment on above: Order Comment: No: D o not add to previous draw Performed By: #### 0 0071, 64386, 31632 #### [facility] [address] [place] [address], [place] Urea nitrogen [Mass/Vol] 21 mg/dL Normal 7-25 [facility] Comment on above: Order Comment: No: D o not add to previous draw Performed By: #### 0 0071, 44869, 21522 #### [facility] [address] [place] [address], [place] CBC COMPLETE BLOOD COUNTon 0 - Erythrocyte distribution width (RBC) [Ratio] 13.1 % Normal 11.5-15.0 [facility] Comment on above: Order Comment: No: D o not add to previous draw Performed By: #### 8 5123 #### [facility] [address] [place] [address], [place] Hematocrit (Bld) [Volume fraction] 40.9 % Normal 39.0-50.0 [facility] Comment on above: Order Comment: No: D o not add to previous draw Performed By: #### 8 [id number] #### [facility] [address] [place] [address], [facility] Hemoglobin (Bld) [Mass/Vol] 13.6 g/dL Normal 13.0-17.0 [facility] Comment on above: Order Comment: No: D o not add to previous draw Performed By: #### 8 [id number] #### [facility] [address] [place] [address], [facility] MCH (RBC) [Entitic mass] 29.8 pg Normal 27.0-33.0 [facility] Comment on above: Order Comment: No: D o not add to previous draw Performed By: #### 8 [id number] #### [facility] [address] [place] [address], [facility] MCHC (RBC) [Mass/Vol] 33.3 g/dL Normal 32.0-35.0 [facility] Comment on above: Order Comment: No: D o not add to previous draw Performed By: #### 8 [id number] #### [facility] [address] [place] [address], [facility] MCV (RBC) [Entitic vol] 89.7 fL Normal 82.0-98.0 [facility] Comment on above: Order Comment: No: D o not add to previous draw Performed By: #### 8 [id number] #### [facility] [address] [facility] [place] [address], [facility] Nucleated RBC/100 WBC (Bld) [Ratio] 0 % Normal 0-0 [facility] Comment on above: Order Comment: No: D o not add to previous draw Performed By: #### 8 [id number] #### [facility] [address] [place] [address], [facility] PLAT CNT 217 10*3/uL Normal 150-400 [facility] Comment on above: Order Comment: No: D o not add to previous draw Performed By: #### 8 [id number] #### [facility] [address] [place] [address], [facility] RBC (Bld) [#/Vol] 4.56 10*6/uL Normal 4.20-5.70 [facility] Comment on above: Order Comment: No: D o not add to previous draw Performed By: #### 8 [id number] #### [facility] [address] [place] [id number], [facility] WBC (Bld) [#/Vol] 7.38 10*3/uL Normal 4.00-10.60 [facility] Comment on above: Order Comment: No: D o not add to previous draw Performed By: #### 8 [id number] #### [facility] [address] MAGNESIUM BLOODon 11-02-2020 Magnesium [Mass/Vol] 1.6 mg/dL Low 1.9-2.7 [facility] Comment on above: Order Comment: No: D o not add to previous draw Performed By: #### 0 0071, 28886, 33811 #### [facility] [address] [facility] [address] POC GLUCOSE LABon 11-02-2020 Glucose [Mass/Vol] 92 mg/dL Normal 70-100 [facility] Comment on above: Performed By: #### 8 [id number] #### [facility] [address] TROPONIN-Ion 11-02-2020 Troponin I.cardiac [Mass/Vol] 0.21 ng/mL Critically high 0.00-0.04 [facility] Comment on above: Order Comment: No: D o not add to previous draw Result Comment: M-W[place] EVIOUS CRITICAL RESULT REFERENCE RANGES: 0.00 - 0.04 ng/ml NORMAL 0.05 - 0.50 ng/ml INDETERMINATE > 0.50 ng/ml CONSISTENT WITH AN M.I. Performed By: #### 0 0071, 34976, 65902 #### [facility] [address] [place] [address], [facility] UFH HEPARIN ASSAYon 11-03-19 UNFRACTIONATED HEPARIN 0.91 IU/mL Critically high 0.30-0.70 [facility] Comment on above: Result Comment: Gaby roxaban and Apixaban will interfere with the anti Xa assay used to monitor UFH and LMWH. Results called. Accurately read back by Stephanie Moore RN at 1217 Performed By: #### 3 1522, 09922, 45517, 60931 #### [facility] [address] [facility] [address] UNFRACTIONATED HEPARIN 0.75 IU/mL High 0.30-0.70 [facility] Comment on above: Result Comment: [place] roxaban and Apixaban will interfere with the anti Xa assay used to monitor UFH and LMWH. Performed By: #### 8 [id number] #### [facility] [address] [facility] [address] APTTon 11-01-2020 aPTT Coag (Bld) [Time] 28.5 s Normal 25.0-35.0 [facility] Comment on above: Order Comment: No: D [...] THIS PURPOSE. Performed By: #### 3 0477, 64857 #### [facility] [address] BASIC METABOLIC PANELon - Calcium [Mass/Vol] 9.5 mg/dL Normal 8.6-10.3 [facility] Comment on above: Order Comment: No: D o not add to previous draw Performed By: #### 3 0477, 01655 #### [facility] [address] [place] [address], [place] Chloride [Moles/Vol] 102 mmol/L Normal 98-107 [facility] Comment on above: Order Comment: No: D o not add to previous draw Performed By: #### 3 0477, 60775 #### [facility] [address] [place] [address], [place] CO2 [Moles/Vol] 27 mmol/L Normal 21-31 [facility] Comment on above: Order Comment: No: D o not add to previous draw Performed By: #### 3 7, 18151 #### [facility] [address] [place] [address], [place] Creatinine [Mass/Vol] 1.39 mg/dL High 0.70-1.30 [facility] Comment on above: Order Comment: No: D o not add to previous draw Performed By: #### 3 7, 59096 #### [facility] [address] [place] [address], [place] eGFR- 59 ml/min/1.73sq m Abnormal >60 [facility] Comment on above: Order Comment: No: D o not add to previous draw Result Comment: Calc ulation may not be valid for patients over 70 years Performed By: #### 3 0477, 14830 #### [facility] [address] [place] [address], [place] eGFR- non- 49 ml/min/1.73sq m Abnormal >60 [facility] Comment on above: Order Comment: No: D o not add to previous draw Result Comment: Calc ulation may not be valid for patients over 70 years Performed By: #### 3 0477, 31197 #### [facility] [address] [place] [address], [place] Glucose [Mass/Vol] 93 mg/dL Normal 70-100 [facility] Comment on above: Order Comment: No: D o not add to previous draw Performed By: #### 3 0477, 32720 #### [facility] [address] [place] [address], [place] Potassium [Moles/Vol] 3.8 mmol/L Normal 3.5-5.1 [facility] Comment on above: Order Comment: No: D o not add to previous draw Performed By: #### 3 0477, 14514 #### [facility] [address] [place] [address], [place] Sodium [Moles/Vol] 138 mmol/L Normal 136-145 [facility] Comment on above: Order Comment: No: D o not add to previous draw Performed By: #### 3 0477, 38216 #### [facility] [address] [place] [address], [place] Urea nitrogen [Mass/Vol] 20 mg/dL Normal 7-25 [facility] Comment on above: Order Comment: No: D o not add to previous draw Performed By: #### 3 0477, 73654 #### [facility] [address] [place] [address], [place] CBC COMPLETE BLOOD COUNTon - Erythrocyte distribution width (RBC) [Ratio] 12.9 % Normal 11.5-15.0 [facility] Comment on above: Order Comment: No: D o not add to previous draw Performed By: #### 8 [id number] #### [facility] [address] [place] [address], [place] Hematocrit (Bld) [Volume fraction] 41.9 % Normal 39.0-50.0 [facility] Comment on above: Order Comment: No: D o not add to previous draw Performed By: #### 8 5123 #### [facility] [address] [place] [address], [place] Hemoglobin (Bld) [Mass/Vol] 13.8 g/dL Normal 13.0-17.0 [facility] Comment on above: Order Comment: No: D o not add to previous draw Performed By: #### 8 [id number] #### [facility] [address] [place] [address], [facility] MCH (RBC) [Entitic mass] 30.0 pg Normal 27.0-33.0 [facility] Comment on above: Order Comment: No: D o not add to previous draw Performed By: #### 8 [id number] #### [facility] [address] [place] [address], [facility] MCHC (RBC) [Mass/Vol] 32.9 g/dL Normal 32.0-35.0 [facility] Comment on above: Order Comment: No: D o not add to previous draw Performed By: #### 8 [id number] #### [facility] [address] [place] [address], [facility] MCV (RBC) [Entitic vol] 91.1 fL Normal 82.0-98.0 [facility] Comment on above: Order Comment: No: D o not add to previous draw Performed By: #### 8 [id number] #### [facility] [address] [facility] [address], [facility] Nucleated RBC/100 WBC (Bld) [Ratio] 0 % Normal 0-0 [facility] Comment on above: Order Comment: No: D o not add to previous draw Performed By: #### 8 5123 #### [facility] [address] [facility]. [place] [id number], [facility] PLAT CNT 224 10*3/uL Normal 150-400 [facility] Comment on above: Order Comment: No: D o not add to previous draw Performed By: #### 8 5123 #### [facility] [address] [place] [id number], [facility] RBC (Bld) [#/Vol] 4.60 10*6/uL Normal 4.20-5.70 [facility] Comment on above: Order Comment: No: D o not add to previous draw Performed By: #### 8 5123 #### [facility] [address] [place] [address], [facility] WBC (Bld) [#/Vol] 8.65 10*3/uL Normal 4.00-10.60 [facility] Comment on above: Order Comment: No: D o not add to previous draw Performed By: #### 8 5123 #### [facility] [address] [place] [address], [place] FREE T3on 11-01-2020 Free T3 [Mass/Vol] 2.8 pg/mL Normal 2.5-3.9 [facility] Comment on above: Order Comment: Yes: Add to Previous draw if able Performed By: #### 3 0477, 83943 #### [facility] [address] [place] [address], [facility] FREE T4on 11-01-2020 Free T4 [Mass/Vol] 0.80 ng/dL Normal 0.71-1.85 [facility] Comment on above: Order Comment: Yes: Add to Previous draw if able Performed By: #### 3 476, 57042 #### [facility] [address] [place] [address], [facility] HEMOGLOBIN A1Con 11-01-2020 Glucose [Moles/Vol] 114 mmol/L Normal [facility] Comment on above: Order Comment: Yes: Add to Previous draw if able Performed By: #### 3 7, 42175 #### [facility] [address] [place] [address], [place] HbA1c (Bld) [Mass fraction] 5.6 % Normal 4.0-6.0 [facility] Comment on above: Order Comment: Yes: Add to Previous draw if able Performed By: #### 3 0477, 83205 #### [facility] [address] [place] [address], [facility] LIPID PROFILEon 11-01-2020 Cholesterol [Mass/Vol] 173 mg/dL Normal 120-200 [facility] Comment on above: Result Comment: CHOL ESTEROL REFERENCE RANGE: 20 YEARS AND OLDER CARDIOVASCULAR RISK Less than 200 mg/dl Low Risk 200 to 239 mg/dl Borderline Risk 240 mg/dl and greater High Risk Performed By: #### 3 0477, 75287 #### [facility] [address] [place] [address], [facility] Cholesterol in HDL [Mass/Vol] 44 mg/dL Normal 23-92 [facility] Comment on above: Result Comment: Slig ht variation in normal range could be due to gender and/or age. HDL CHOLESTEROL REFERENCE RANGE: 20 years and older Cardiovascular Risk > or =60 mg/dL Desirable 40 TO 59 mg/dL Low Risk <40 mg/dL High Risk Performed By: #### 3 0477, 28080 #### [facility] [address] [place] [id number], [facility] Cholesterol in LDL [Mass/Vol] 115 mg/dL Normal 0-130 [facility] Comment on above: Result Comment: LDL IS A CALCULATION LDL IS ONLY VALID IF THE TRIG IS LESS THAN 400. Performed By: #### 3 0477, 27144 #### [facility] [address] [place] [address], [place] Cholesterol.total/Ch olesterol in HDL [Mass ratio] 3.9 {ratio} Normal 0.0-4.5 [facility] Comment on above: Performed By: #### 3 0477, 09582 #### [facility] [address] [place] [address], [place] NON-HDL CHOLESTEROL 129 mg/dL Normal [facility] Comment on above: Performed By: #### 3 0477, 23074 #### [facility] [address] [place] [address], [place] Triglyceride [Mass/Vol] 70 mg/dL Normal 40-149 [facility] Comment on above: Result Comment: TRIG LYCERIDE REFERENCE RANGE: 20 YEARS AND OLDER CARDIOVASCULAR RISK LESS THAN 150 mg/dl LOW RISK 150 TO 199 mg/dl BORDERLINE RISK 200 mg/dl AND GREATER HIGH RISK Performed By: #### 3 0477, 58755 #### [facility] [address] [place] [address], [facility] VLDL CHOL 14 mg/dL Normal 0-40 [facility] Comment on above: Performed By: #### 3 0477, 91199 #### [facility] [address] [place] [address], [facility] MAGNESIUM BLOODon 11-01-2020 Magnesium [Mass/Vol] 2.6 mg/dL Normal 1.9-2.7 [facility] Comment on above: Order Comment: No: D o not add to previous draw Performed By: #### 3 0477, 22153 #### [facility] [address] [place] [address], [facility] PHOSPHORUS BLOODon Phosphate [Mass/Vol] 2.9 mg/dL Normal 2.5-5.0 [facility] Comment on above: Order Comment: No: D o not add to previous draw Performed By: #### 3 0477, 31366 #### [facility] [address] [place] [address], [facility] PROCALCITONINon 11-01-2020 PROCALCITONIN 0.03 ng/mL Normal 0.00-0.[address] [facility] Comment on above: Order Comment: No: [...] PCT<0.5ng/mL Performed By: #### 8 5123 #### [facility] [address] TROPONIN-Ion 11-01-2020 Troponin I.cardiac [Mass/Vol] 0.39 ng/mL Critically high 0.00-0.04 [facility] Comment on above: Order Comment: No: D o not add to previous draw Result Comment: M-WI EVIOUS CRITICAL RESULT REFERENCE RANGES: 0.00 - 0.04 ng/ml NORMAL 0.05 - 0.50 ng/ml INDETERMINATE > 0.50 ng/ml CONSISTENT WITH AN M.I. Performed By: #### 3 0267, 09939 #### [facility] [address] [place] [address], [facility] UFH HEPARIN ASSAYon 11-02-19 21 UNFRACTIONATED HEPARIN 0.82 IU/mL High 0.30-0.70 [facility] Comment on above: Result Comment: Gaby roxaban and Apixaban will interfere with the anti Xa assay used to monitor UFH and LMWH. Performed By: #### 3 1522, 93876, 20534, 23271 #### [facility] [address] [place] [address], [facility] UNFRACTIONATED HEPARIN 0.73 IU/mL High 0.30-0.70 [facility] Comment on above: Result Comment: Gaby roxaban and Apixaban will interfere with the anti Xa assay used to monitor UFH and LMWH. Performed By: #### 3 1522, 29053, 26716, 87557 #### [facility] [address] [facility]. [address] UNFRACTIONATED HEPARIN 0.95 IU/mL Critically high 0.30-0.70 [facility] Comment on above: Result Comment: Gaby roxaban and Apixaban will interfere with the anti Xa assay used to monitor UFH and LMWH. RESULTS CHECKED AND CALLED. ACCURATELY READ BACK BY THERESA SANTO RN AT 0540 Performed By: #### 8 5123 #### [facility] [address] UNFRACTIONATED HEPARIN <0.10 Critically low 0.30-0.70 [facility] Comment on above: Result Comment: Gaby roxaban and Apixaban will interfere with the anti Xa assay used to monitor UFH and LMWH. Results called. Accurately read back by Theresa Santo RN, CVU 3A patient's nurse, at 2316, 31-Oct-2020. Performed By: #### 3 0477, 56443 #### [facility] [address] [facility]. [address] BNP (B-TYPE NATRIURETIC PEPT JOYCELYN)on 10-31-2020 Natriuretic peptide B (Bld) [Mass/Vol] 345 pg/mL High 0-100 [facility] Comment on above: Order Comment: No: D o not add to previous draw Result Comment: Give n the appropriate clinical setting a BNP result of >100 pg/mL indicates congestive heart failure. Performed By: #### 8 5123 #### [facility] [address] [facility] [place] [address], [facility] CBC W/DIFFon 10-31-2020 ABS IMM GRANS 0.0 10*3/uL Normal 0.0-0.[address] [facility] Comment on above: Order Comment: No: D o not add to previous draw Performed By: #### 8 [id number] #### [facility] [address] [place] [address], [facility] ABS NEUTROPHILS 4.6 10*3/uL Normal 1.6-7.6 [facility] Comment on above: Order Comment: No: D o not add to previous draw Performed By: #### 8 5123 #### [facility] [address] [place] [address], [place] Basophils (Bld) [#/Vol] 0.0 10*3/uL Normal 0.0-0.2 [facility] Comment on above: Order Comment: No: D o not add to previous draw Performed By: #### 8 [id number] #### [facility] [address] [place] [address], [facility] Basophils/100 WBC (Bld) 0.6 % Normal 0.0-1.0 [facility] Comment on above: Order Comment: No: D o not add to previous draw Performed By: #### 8 [id number] #### [facility] [address] [place] [address], [facility] Eosinophils (Bld) [#/Vol] 0.1 10*3/uL Normal 0.0-0.5 [facility] Comment on above: Order Comment: No: D o not add to previous draw Performed By: #### 8 [id number] #### [facility] [address] [place] [id number], [facility] Eosinophils/100 WBC (Bld) 2.0 % Normal 0.0-6.0 [facility] Comment on above: Order Comment: No: D o not add to previous draw Performed By: #### 8 [id number] #### [facility] [address] [place] [address], [place] Erythrocyte distribution width (RBC) [Ratio] 13.1 % Normal 11.5-15.0 [facility] Comment on above: Order Comment: No: D o not add to previous draw Performed By: #### 8 [id number] #### [facility] [address] [place] [address], [facility] Hematocrit (Bld) [Volume fraction] 42.5 % Normal 39.0-50.0 [facility] Comment on above: Order Comment: No: D o not add to previous draw Performed By: #### 8 [id number] #### [facility] [address] [place] [address], [facility] Hemoglobin (Bld) [Mass/Vol] 14.4 g/dL Normal 13.0-17.0 [facility] Comment on above: Order Comment: No: D o not add to previous draw Performed By: #### 8 [id number] #### [facility] [address] [place] [address], [facility] IMMATURE GRANS 0.3 % Normal 0.0-1.[address] [facility] Comment on above: Order Comment: No: D o not add to previous draw Performed By: #### 8 [id number] #### [facility] [address] [place] [address], [facility] Lymphocytes (Bld) [#/Vol] 1.9 10*3/uL Normal 1.2-4.0 [facility] Comment on above: Order Comment: No: D o not add to previous draw Performed By: #### 8 [id number] #### [facility] [address] [place] [address], [facility] Lymphocytes/100 WBC (Bld) 26.8 % Normal 20.0-45.0 [facility] Comment on above: Order Comment: No: D o not add to previous draw Performed By: #### 8 [id number] #### [facility] [address] [place] [address], [facility] MCH (RBC) [Entitic mass] 30.1 pg Normal 27.0-33.0 [facility] Comment on above: Order Comment: No: D o not add to previous draw Performed By: #### 8 [id number] #### [facility] [address] [place] [address], [facility] MCHC (RBC) [Mass/Vol] 33.9 g/dL Normal 32.0-35.0 [facility] Comment on above: Order Comment: No: D o not add to previous draw Performed By: #### 8 [id number] #### [facility] [address] [place] [id number], [facility] MCV (RBC) [Entitic vol] 88.7 fL Normal 82.0-98.0 [facility] Comment on above: Order Comment: No: D o not add to previous draw Performed By: #### 8 [id number] #### [facility] [address] [place] [address], [facility] Monocytes (Bld) [#/Vol] 0.4 10*3/uL Normal 0.1-1.0 [facility] Comment on above: Order Comment: No: D o not add to previous draw Performed By: #### 8 [id number] #### [facility] [address] [place] [address], [facility] MONOS 6.0 % Normal 5.0-12.0 [facility] Comment on above: Order Comment: No: D o not add to previous draw Performed By: #### 8 [id number] #### [facility] [address] [place] [address], [facility] Neutrophils/100 WBC (Bld) 64.3 % Normal 40.0-72.0 [facility] Comment on above: Order Comment: No: D o not add to previous draw Performed By: #### 8 [id number] #### [facility] [address] [place] [address], [facility] Nucleated RBC/100 WBC (Bld) [Ratio] 0 % Normal 0-0 [facility] Comment on above: Order Comment: No: D o not add to previous draw Performed By: #### 8 [id number] #### [facility] [address] [place] [id number], [facility] PLAT CNT 245 10*3/uL Normal 150-400 [facility] Comment on above: Order Comment: No: D o not add to previous draw Performed By: #### 8 [id number] #### [facility] [address] [place] [address], [facility] RBC (Bld) [#/Vol] 4.79 10*6/uL Normal 4.20-5.70 [facility] Comment on above: Order Comment: No: D o not add to previous draw Performed By: #### 8 [id number] #### [facility] [address] [place] [address], [facility] WBC (Bld) [#/Vol] 7.16 10*3/uL Normal 4.00-10.60 [facility] Comment on above: Order Comment: No: D o not add to previous draw Performed By: #### 8 [id number] #### [facility] [address] COMP METABOLIC PANELon 10-31 Albumin [Mass/Vol] 4.0 g/dL Normal 3.5-5.7 [facility] Comment on above: Order Comment: No: D o not add to previous draw Performed By: #### 3 1522, 27332, 91397, 17794 #### [facility] [address] [place] [address], [facility] ALKALINE PHOSPH 47 IU/L Normal 34-104 The [facility] Comment on above: Order Comment: No: D o not add to previous draw Performed By: #### 3 1522, 33837, 90632, 72841 #### [facility] [address] [place] [address], [facility] ALT [Catalytic activity/Vol] 11 U/L Normal 7-52 [facility] Comment on above: Order Comment: No: D o not add to previous draw Performed By: #### 3 1522, 93240, 57895, 70624 #### [facility] [address] [place] [address], [place] AST [Catalytic activity/Vol] 17 U/L Normal 13-39 [facility] Comment on above: Order Comment: No: D o not add to previous draw Performed By: #### 3 1522, 74146, 12498, 23051 #### [facility] [address] [place] [address], [place] Bilirubin [Mass/Vol] 0.4 mg/dL Normal 0.3-1.0 [facility] Comment on above: Order Comment: No: D o not add to previous draw Performed By: #### 3 1522, 16601, 80134, 78188 #### [facility] [address] [place] [address], [place] Calcium [Mass/Vol] 9.6 mg/dL Normal 8.6-10.3 [facility] Comment on above: Order Comment: No: D o not add to previous draw Performed By: #### 3 1522, 40043, 14206, 15544 #### [facility] [address] [place] [address], [place] Chloride [Moles/Vol] 100 mmol/L Normal 98-107 [facility] Comment on above: Order Comment: No: D o not add to previous draw Performed By: #### 3 1522, 25416, 03517, 28546 #### [facility] [address] [place] [address], [place] CO2 [Moles/Vol] 30 mmol/L Normal 21-31 [facility] Comment on above: Order Comment: No: D o not add to previous draw Performed By: #### 3 1522, 41594, 16198, 80547 #### [facility] [address] [place] [address], [place] Creatinine [Mass/Vol] 1.37 mg/dL High 0.70-1.30 [facility] Comment on above: Order Comment: No: D o not add to previous draw Performed By: #### 3 1522, 85937, 28597, 21135 #### [facility] [address] [place] [address], [place] eGFR- 60 ml/min/1.73sq m Abnormal >60 [facility] Comment on above: Order Comment: No: D o not add to previous draw Result Comment: Calc ulation may not be valid for patients over 70 years Performed By: #### 3 1522, 23647, 11889, 58346 #### [facility] [address] [place] [address], [place] eGFR- non- 50 ml/min/1.73sq m Abnormal >60 [facility] Comment on above: Order Comment: No: D o not add to previous draw Result Comment: Calc ulation may not be valid for patients over 70 years Performed By: #### 3 1522, 39674, 92921, 26128 #### [facility] [address] [place] [address], [place] Glucose [Mass/Vol] 99 mg/dL Normal 70-100 [facility] Comment on above: Order Comment: No: D o not add to previous draw Performed By: #### 3 1522, 36162, 04848, 36185 #### [facility] [address] [place] [address], [place] Potassium [Moles/Vol] 3.5 mmol/L Normal 3.5-5.1 [facility] Comment on above: Order Comment: No: D o not add to previous draw Performed By: #### 3 1522, 76738, 58540, 11445 #### [facility] [address] [place] [address], [place] Protein [Mass/Vol] 6.8 g/dL Normal 6.0-8.3 [facility] Comment on above: Order Comment: No: D o not add to previous draw Performed By: #### 3 1522, 76189, 61392, 98543 #### [facility] [address] [place] [address], [facility] Sodium [Moles/Vol] 139 mmol/L Normal 136-145 [facility] Comment on above: Order Comment: No: D o not add to previous draw Performed By: #### 3 1522, 04097, 40054, 92500 #### [facility] [address] [place] [address], [facility] Urea nitrogen [Mass/Vol] 21 mg/dL Normal 7-25 [facility] Comment on above: Order Comment: No: D o not add to previous draw Performed By: #### 3 1522, 50354, 54966, 83956 #### [facility] [address] [facility] [address] D DIMER TESTon 10-31-2020 D-DIMER TEST 0.64 mcg/mL FEU High 0.27-0.49 [facility] Comment on above: Order Comment: No: D o not add to previous draw Result Comment: D-Di sarah values of less than 0.50 ug/ml (FEU) are considered to be a negative predictor of thrombosis. However, the D-Dimer result should be used in conjunction with pretest probability and should not be used alone to diagnose a thrombotic event. Performed By: #### 8 5123 #### [facility] [address] [place] [address], [facility] MAGNESIUM BLOODon 10-31-2020 Magnesium [Mass/Vol] 1.5 mg/dL Low 1.9-2.7 [facility] Comment on above: Order Comment: No: D o not add to previous draw Performed By: #### 3 1522, 71494, 48844, 80116 #### [facility] [address] [place] [address], [facility] TROPONIN-Ion 10-31-2020 Troponin I.cardiac [Mass/Vol] 0.57 ng/mL Critically high 0.00-0.04 [facility] Comment on above: Order Comment: No: D o not add to previous draw Result Comment: M-CR ITICAL RESULT(S) REVIEWED, CALLED TO AND READ BACK BY FELECIA CANCHOLA @213 10.31.20 REFERENCE RANGES: 0.00 - 0.04 ng/ml NORMAL 0.05 - 0.50 ng/ml INDETERMINATE > 0.50 ng/ml CONSISTENT WITH AN M.I. Performed By: #### 3 1522, 46630, 62364, 48373 #### [facility] 3000 [facility]. [address] TSH3on 10-31-2020 TSH 3RD GENERATION 6.84 uIU/mL High 0.34-5.60 [facility] Comment on above: Order Comment: No: D o not add to previous draw Performed By: #### 3 1522, 49463, 19787, 29078 #### [facility] [address] CBC Auto Differentialon 04-12 Basophils (Bld) [#/Vol] 0.00 10*3/uL [place] Basophils/100 WBC (Bld) 0 % 0 - 2 % [place] Differential Type YES [place], [place] Eosinophils (Bld) [#/Vol] 0.20 10*3/uL [place] Eosinophils/100 WBC (Bld) 2 % 0 - 5 % [place] Erythrocyte distribution width (RBC) [Ratio] 13.8 % 12.1 - 15.2 % [place] Hematocrit (Bld) [Volume fraction] 42.1 % 41 - 53 % [place] Hemoglobin (Bld) [Mass/Vol] 14.3 g/dL 13.5 - 17.5 g/dL [place] Lymphocytes (Bld) [#/Vol] 2.60 10*3/uL [place] Lymphocytes/100 WBC (Bld) 35 % 13 - 44 % [place] MCH (RBC) [Entitic mass] 31.0 pg 26 - 34 pg [place] MCHC (RBC) [Mass/Vol] 33.9 g/dL 31 - 37 g/dL [place] MCV (RBC) [Entitic vol] 91.5 fL 80 - 100 fL [place] Monocytes (Bld) [#/Vol] 0.40 10*3/uL [place] Monocytes/100 WBC (Bld) 6 % 5 - 9 % [place] Platelet mean volume (Bld) [Entitic vol] NOT REPORTED 6 - 12 fL [place] Platelets (Bld) [#/Vol] NOT REPORTED [place] Platelets (Bld) [#/Vol] 274 10*3/uL [place] RBC (Bld) [#/Vol] 4.60 10*6/uL 4.5 - 5.9 m/uL [place] RBC morphology finding Nom (Bld) NOT REPORTED [place] Segmented neutrophils/100 WBC (Bld) 57 % 39 - 75 % [place] Segs Absolute 4.20 [place] WBC (Bld) [#/Vol] 7.4 10*3/uL [place] WBC (Bld) [#/Vol] NOT REPORTED per 100 WBC [place] WBC Morphology NOT REPORTED [place], [place] CBC with Diffon 04-30-2020 Abs. Basophil 0.00 k/uL Normal 0.0-0.2 [facility] Comment on above: Performed By: #### Z FAST, TSHX, MG, CP, CDP #### [facility] [address] [place] [address] Live Source Operator: Elio Pate MD #### VD25, LIPR #### [facility] [employer] [address] [place] [address] Live Source Operator: Jose Manuel Corona MD Abs.Neutrophil (Seg) 4.20 k/uL Normal 2.1-6.5 [facility] Comment on above: Performed By: #### Z FAST, TSHX, MG, CP, CDP #### [facility] [address] [place], [place] [phone] Live Source Operator: Elio Pate MD #### VD25, LIPR #### [address] [id number] Live Source Operator: Jose Manuel Corona MD Auto Diff Performed YES Normal [facility] Comment on above: Performed By: #### Z FAST, TSHX, MG, CP, CDP #### [facility] [address] [place], [place] [phone] Live Source Operator: Elio Pate MD #### VD25, LIPR #### [address] [id number] Live Source Operator: Jose Manuel Corona MD Basophils/100 WBC (Bld) 0 % Normal 0-2 [facility] Comment on above: Performed By: #### Z FAST, TSHX, MG, CP, CDP #### [facility] [address] [place], [place] [phone] Live Source Operator: Elio Pate MD #### VD25, LIPR #### [address] [id number] Live Source Operator: Jose Manuel Corona MD Eosinophils (Bld) [#/Vol] 0.20 10*3/uL Normal 0.0-0.4 [facility] Comment on above: Performed By: #### Z FAST, TSHX, MG, CP, CDP #### [facility] [address] [place] [address] Live Source Operator: Elio Pate MD #### VD25, LIPR #### [address] [id number] Live Source Operator: Jose Manuel Corona MD Eosinophils/100 WBC (Bld) 2 % Normal 0-5 [facility] Comment on above: Performed By: #### Z FAST, TSHX, MG, CP, CDP #### [facility] [address] [place], [place] [phone] Live Source Operator: Elio Pate MD #### VD25, LIPR #### [address] [id number] Live Source Operator: Jose Manuel Corona MD Erythrocyte distribution width (RBC) [Ratio] 13.8 % Normal 12.1-15.2 [facility] Comment on above: Performed By: #### Z FAST, TSHX, MG, CP, CDP #### [facility] [address] [place] [address] Live Source Operator: Elio Pate MD #### VD25, LIPR #### [address] [phone] Live Source Operator: Jose Manuel Corona MD Hematocrit (Bld) [Volume fraction] 42.1 % Normal 41-53 [facility] Comment on above: Performed By: #### Z FAST, TSHX, MG, CP, CDP #### [facility] [address] [place] [address] Live Source Operator: Elio Pate MD #### VD25, LIPR #### [address] [id number] Live Source Operator: Jose Manuel Corona MD Hemoglobin (Bld) [Mass/Vol] 14.3 g/dL Normal 13.5-17.5 [facility] Comment on above: Performed By: #### Z FAST, TSHX, MG, CP, CDP #### [facility] [address] [place] [address] Live Source Operator: Elio Pate MD #### VD25, LIPR #### [address] [id number] Live Source Operator: Jose Manuel Corona MD Lymphocytes (Bld) [#/Vol] 2.60 10*3/uL Normal 1.0-4.8 [facility] Comment on above: Performed By: #### Z FAST, TSHX, MG, CP, CDP #### [facility] [address] [place] [address] Live Source Operator: Elio Pate MD #### VD25, LIPR #### [address] [id number] Live Source Operator: Jose Manuel Corona MD Lymphocytes/100 WBC (Bld) 35 % Normal 13-44 [facility] Comment on above: Performed By: #### Z FAST, TSHX, MG, CP, CDP #### [facility] [address] [place] [address] Live Source Operator: Elio Pate MD #### VD25, LIPR #### [address] [id number] Live Source Operator: Jose Manuel Corona MD MCH (RBC) [Entitic mass] 31.0 pg Normal 26-34 [facility] Comment on above: Performed By: #### Z FAST, TSHX, MG, CP, CDP #### [facility] [address] [place] [address] Live Source Operator: Elio Pate MD #### VD25, LIPR #### [address] [phone] Live Source Operator: Jose Manuel Corona MD MCHC (RBC) [Mass/Vol] 33.9 g/dL Normal 31-37 [facility] Comment on above: Performed By: #### Z FAST, TSHX, MG, CP, CDP #### [facility] [address] [place] [address] Live Source Operator: Elio Pate MD #### VD25, LIPR #### [address] [phone] Live Source Operator: Jose Manuel Corona MD MCV (RBC) [Entitic vol] 91.5 fL Normal 80-100 [facility] Comment on above: Performed By: #### Z FAST, TSHX, MG, CP, CDP #### [facility] [address] [place], [place] [phone] Live Source Operator: Elio Pate MD #### VD25, LIPR #### [address] [phone] Live Source Operator: Jose Manuel Corona MD Monocytes (Bld) [#/Vol] 0.40 10*3/uL Normal 0.0-1.0 [facility] Comment on above: Performed By: #### Guicho FAST, TSHX, MG, CP, CDP #### [facility] [address] [place] [address] Live Source Operator: Elio Pate MD #### EYAL25, LIPR #### [address] [phone] Live Source Operator: Jose Manuel Corona MD Monocytes/100 WBC (Bld) 6 % Normal 5-9 [facility] Comment on above: Performed By: #### [place]icho FAST, TSHX, MG, CP, CDP #### [facility] [address] [place] [address] Live Source Operator: Elio Pate MD #### EYAL25, LIPR #### [address] [address] Live Source Operator: Jose Manuel Corona MD Neutrophil (Seg) 57 % Normal 39-75 [facility] Comment on above: Performed By: #### Z FAST, TSHX, MG, CP, CDP #### [facility] [address] [place], [place] [phone] Live Source Operator: Elio Pate MD #### VD25, LIPR #### [address] [id number] Live Source Operator: Jose Manuel Corona MD Platelets (Bld) [#/Vol] 274 10*3/uL Normal 140-450 [facility] Comment on above: Performed By: #### Z FAST, TSHX, MG, CP, CDP #### [facility] [address] [place] [address] Live Source Operator: Elio Pate MD #### VD25, LIPR #### [address] [phone] Live Source Operator: Jose Manuel Corona MD RBC (Bld) [#/Vol] 4.60 10*6/uL Normal 4.5-5.9 [facility] Comment on above: Performed By: #### [place]icho FAST, TSHX, MG, CP, CDP #### [facility] [address] [place] [address] Live Source Operator: Elio Pate MD #### VD25, LIPR #### [place] [address] Live Source Operator: Jose Manuel Corona MD WBC (Bld) [#/Vol] 7.4 10*3/uL Normal 3.5-11.0 [facility] Comment on above: Performed By: #### [place]icho FAST, TSHX, MG, CP, CDP #### [facility] [address] [place] [address] Live Source Operator: Elio Pate MD #### VD25, LIPR #### [address] [address] Live Source Operator: Jose Manuel Corona MD Abs.Imm.Granulocyte NOT REPORTED Normal 0.00-0.30 [facility] Comment on above: Performed By: #### Z FAST, TSHX, MG, CP, CDP #### [facility] [address] [place] [phone] Live Source Operator: Elio Pate MD #### VD25, LIPR #### [place] [address]6092 [place], [place] [phone] Live Source Operator: Jose Manuel Corona MD Immature granulocytes (Bld) [#/Vol] NOT REPORTED Normal 0 [facility] Comment on above: Performed By: #### Z FAST, TSHX, MG, CP, CDP #### [facility] [address] [place], [place] [phone] Live Source Operator: Elio Pate MD #### VD25, LIPR #### [address] [phone] Live Source Operator: Jose Manuel Corona MD NRBC Automated NOT REPORTED Normal [facility] Comment on above: Performed By: #### Z FAST, TSHX, MG, CP, CDP #### [facility] [address] [place], [place] [phone] Live Source Operator: Elio Pate MD #### VD25, LIPR #### [address] [phone] Live Source Operator: Jose Manuel Corona MD Platelet mean volume (Bld) [Entitic vol] NOT REPORTED Normal 6.0-12.0 [facility] Comment on above: Performed By: #### Z FAST, TSHX, MG, CP, CDP #### [facility] [address] [place], [place] [phone] Live Source Operator: Elio Pate MD #### VD25, LIPR #### [address] [phone] Live Source Operator: Jose Manuel Corona MD Platelets (Bld) [#/Vol] NOT REPORTED Normal [facility] Comment on above: Performed By: #### Z FAST, TSHX, MG, CP, CDP #### [facility] [address] [place], [place] [phone] Live Source Operator: Elio Pate MD #### VD25, LIPR #### [facility] [address] [place] [address] Live Source Operator: Jose Manuel Corona MD RBC morphology finding Nom (Bld) NOT REPORTED Normal [facility] Comment on above: Performed By: #### Z FAST, TSHX, MG, CP, CDP #### [facility] [address] [place], [place] [phone] Live Source Operator: Elio Pate MD #### VD25, LIPR #### [facility] [address] [place], [place] [phone] Live Source Operator: Jose Manuel Corona MD WBC Morphology NOT REPORTED Normal [facility] Comment on above: Performed By: #### Z FAST, TSHX, MG, CP, CDP #### [facility] [address] [place], [place] [phone] Live Source Operator: Elio Pate MD #### VD25, LIPR #### [address] [id number] Live Source Operator: Jose Manuel Corona MD Comp Metabolic Profon 2019 (cont.) Normal [facility] Comment on above: Result Comment: Aver age GFR for 70 or more years old: 75 mL/min/1.73sq m Chronic Kidney Disease: <60 mL/min/1.73sq m Kidney failure: <15 mL/min/1.73sq m eGFR calculated using average adult body mass. Additional eGFR calculator available at: http://www.[employer]/multiple_crcl_2012.htm Performed By: #### Z FAST, TSHX, MG, CP, CDP #### [facility] [address] [place] [address] Live Source Operator: Elio Pate MD #### VD25, LIPR #### [facility] [address] [place], [place] [phone] Live Source Operator: Jose Manuel Corona MD Albumin [Mass/Vol] 4.4 g/dL Normal 3.5-5.2 [facility] Comment on above: Performed By: #### Z FAST, TSHX, MG, CP, CDP #### [facility] [address] [place] [address] Live Source Operator: Elio Pate MD #### VD25, LIPR #### [address] [phone] Live Source Operator: Jose Manuel Corona MD Alkaline Phos 61 U/L Normal 40-129 [facility] Comment on above: Performed By: #### Z FAST, TSHX, MG, CP, CDP #### [facility] [address] [place] [address] Live Source Operator: Elio Pate MD #### VD25, LIPR #### [address] [id number] Live Source Operator: Jose Manuel Corona MD ALT [Catalytic activity/Vol] 14 U/L Normal 5-41 [facility] Comment on above: Performed By: #### Z FAST, TSHX, MG, CP, CDP #### [facility] [address] [place] [address] Live Source Operator: Elio Pate MD #### VD25, LIPR #### [address] [id number] Live Source Operator: Jose Manuel Corona MD Anion gap [Moles/Vol] 10 mmol/L Normal 9-17 [facility] Comment on above: Performed By: #### Z FAST, TSHX, MG, CP, CDP #### [facility] [address] [place] [address] Live Source Operator: Elio Pate MD #### VD25, LIPR #### [address] [phone] Live Source Operator: Jose Manuel Corona MD AST [Catalytic activity/Vol] 17 U/L Normal <40 [facility] Comment on above: Performed By: #### Z FAST, TSHX, MG, CP, CDP #### [facility] [address] [place] [address] Live Source Operator: Elio Pate MD #### VD25, LIPR #### [address] [phone] Live Source Operator: Jose Manuel Corona MD Bilirubin Ql (U) 0.53 mg/dL Normal 0.30-1.20 [facility] Comment on above: Performed By: #### Z FAST, TSHX, MG, CP, CDP #### [facility] [address] [place] [address] Live Source Operator: Elio Pate MD #### VD25, LIPR #### [place] [id number] Live Source Operator: Jose Manuel Corona MD BUN/CRE Ratio 18 Normal 9-20 [facility] Comment on above: Performed By: #### Z FAST, TSHX, MG, CP, CDP #### [facility] [address] [place] [address] Live Source Operator: Elio Pate MD #### VD25, LIPR #### [address] [id number] Live Source Operator: Jose Manuel Corona MD Calcium [Mass/Vol] 11.1 mg/dL High 8.6-10.4 [facility] Comment on above: Performed By: #### Z FAST, TSHX, MG, CP, CDP #### [facility] [address] [place] [address] Live Source Operator: Elio Pate MD #### VD25, LIPR #### [address] [phone] Live Source Operator: Jose Manuel Corona MD Chloride [Moles/Vol] 101 mmol/L Normal 98-107 [facility] Comment on above: Performed By: #### Z FAST, TSHX, MG, CP, CDP #### [facility] [address] [place], [place] [phone] Live Source Operator: Elio Pate MD #### VD25, LIPR #### [address] [phone] Live Source Operator: Jose Manuel Corona MD CO2 [Moles/Vol] 30 mmol/L Normal 20-31 [facility] Comment on above: Performed By: #### Z FAST, TSHX, MG, CP, CDP #### [facility] [address] [place] [address] Live Source Operator: Elio Pate MD #### VD25, LIPR #### [address] [id number] Live Source Operator: Jose Manuel Corona MD Creatinine [Mass/Vol] 1.48 mg/dL High 0.70-1.20 [facility] Comment on above: Performed By: #### Z FAST, TSHX, MG, CP, CDP #### [facility] [address] [place] [phone] Live Source Operator: Elio Pate MD #### VD25, LIPR #### [address] [phone] Live Source Operator: Jose Manuel Corona MD GFR, Amer 55 mL/min Low >60 [facility] Comment on above: Performed By: #### Z FAST, TSHX, MG, CP, CDP #### [facility] [address] [place] [address] Live Source Operator: Elio Pate MD #### VD25, LIPR #### [address] [phone] Live Source Operator: Jose Manuel Corona MD GFR,non Amer 46 mL/min Low >60 [facility] Comment on above: Performed By: #### Z FAST, TSHX, MG, CP, CDP #### [facility] [address] [place], [place] [phone] Live Source Operator: Elio Pate MD #### VD25, LIPR #### [address] [id number] Live Source Operator: Jose Manuel Corona MD Glucose [Mass/Vol] 89 mg/dL Normal 70-99 [facility] Comment on above: Performed By: #### Z FAST, TSHX, MG, CP, CDP #### [facility] [address] [place], [place] [phone] Live Source Operator: Eloi Pate MD #### VD25, LIPR #### [address] [phone] Live Source Operator: Jose Manuel Corona MD Potassium [Moles/Vol] 3.8 mmol/L Normal 3.7-5.3 [facility] Comment on above: Performed By: #### Z FAST, TSHX, MG, CP, CDP #### [facility] [address] [place], [place] [phone] Live Source Operator: Elio Pate MD #### VD25, LIPR #### [address] [id number] Live Source Operator: Jose Manuel Corona MD Protein [Mass/Vol] 7.4 g/dL Normal 6.4-8.3 [facility] Comment on above: Performed By: #### Z FAST, TSHX, MG, CP, CDP #### [facility] [address] [place], [place] [phone] Live Source Operator: Elio Pate MD #### VD25, LIPR #### [address] [address] Live Source Operator: Jose Manuel Corona MD Sodium [Moles/Vol] 141 mmol/L Normal 135-144 [facility] Comment on above: Performed By: #### Z FAST, TSHX, MG, CP, CDP #### [facility] [address] [place], [place] [phone] Live Source Operator: Elio Pate MD #### VD25, LIPR #### [address] [phone] Live Source Operator: Jose Manuel Corona MD Urea nitrogen [Mass/Vol] 26 mg/dL High 8-23 [facility] Comment on above: Performed By: #### Z FAST, TSHX, MG, CP, CDP #### [facility] [address] [place] [address] Live Source Operator: Elio Pate MD #### VD25, LIPR #### [address] [phone] Live Source Operator: Jose Manuel Corona MD Albumin/Globulin [Mass ratio] NOT REPORTED Normal 1.0-2.5 [facility] Comment on above: Performed By: #### Z FAST, TSHX, MG, CP, CDP #### [facility] [address] [place], [place] [phone] Live Source Operator: Elio Pate MD #### VD25, LIPR #### [address] [id number] Live Source Operator: Jose Manuel Corona MD Staging: NOT REPORTED Normal [facility] Comment on above: Performed By: #### Z FAST, TSHX, MG, CP, CDP #### [facility] [address] [place], [place] [phone] Live Source Operator: Elio Pate MD #### VD25, LIPR #### [address] [phone] Live Source Operator: Jose Manuel Corona MD Comprehensive Metabolic Pane [facility] 04-30-2020 Albumin [Mass/Vol] 4.4 g/dL 3.5 - 5.2 g/dL [place] Albumin/Globulin [Mass ratio] NOT REPORTED [place] ALP [Catalytic activity/Vol] 61 U/L 40 - 129 U/L [place] ALT [Catalytic activity/Vol] 14 U/L 5 - 41 U/L [place] Anion gap [Moles/Vol] 10 mmol/L 9 - 17 mmol/L [place] AST [Catalytic activity/Vol] 17 U/L <40 [place] Bilirubin Ql (U) 0.53 mg/dL 0.3 - 1.2 mg/dL [place] Bun/Cre Ratio 18 [place] Calcium [Mass/Vol] 11.1 mg/dL High 8.6 - 10. 4 mg/dL [place] Chloride [Moles/Vol] 101 mmol/L 98 - 10 7 mmol/L [place] CO2 [Moles/Vol] 30 mmol/L 20 - 31 mmol/L [place] Creatinine [Mass/Vol] 1.48 mg/dL High 0.7 - 1.2 mg/dL [place] GFR 55 mL/min Low >60 [place] GFR Non- 46 mL/min Low >60 [place] GFR/1.73 sq M predicted among non-blacks MDRD (S/P/Bld) [Vol rate/Area] NOT REPORTED [place] GFR/1.73 sq M predicted among non-blacks MDRD (S/P/Bld) [Vol rate/Area] [place] Comment on above: Average GFR for 70 o r more years old: 75 mL/min/1.73sq m Chronic Kidney Disease: <60 mL/min/1.73sq m Kidney failure: <15 mL/min/1.73sq m eGFR calculated using average adult body mass. Additional eGFR calculator available at: http://www.[employer]/multiple_crcl_2011.htm Glucose [Mass/Vol] 89 mg/dL 70 - 99 mg/dL [place] Interpretation and review of laboratory results Abnormal [place] Potassium [Moles/Vol] 3.8 mmol/L 3.7 - 5.3 mmol/L [place] Protein [Mass/Vol] 7.4 g/dL 6.4 - 8.3 g/dL [place] Sodium [Moles/Vol] 141 mmol/L 135 - 144 mmol/L [place] Urea nitrogen [Mass/Vol] 26 mg/dL High 8 - 23 mg/dL [place] Lipid Panelon 04-30-2020 Cholesterol [Mass/Vol] 152 mg/dL <200 [place] Comment on above: Cholesterol Guidelines: <200 Desirable 200-240 Borderline >240 Undesirable Cholesterol in HDL [Mass/Vol] 48 mg/dL >40 [place] Comment on above: HDL Guidelines: <40 Undesirable 40-59 Borderline >59 Desirable Cholesterol in LDL [Mass/Vol] 89 mg/dL 0 - 130 mg/dL [place] Comment on above: LDL Guidelines: <100 Desirable 100-129 Near to/above Desirable 130-159 Borderline >159 Undesirable Direct (measured) LDL and calculated LDL are not interchangeable tests. Cholesterol in VLDL [Mass/Vol] NOT REPORTED 1 - 30 mg/dL [place] Cholesterol.total/Ch olesterol in HDL [Mass ratio] 3.2 {ratio} <5 [place] Triglyceride [Mass/Vol] 75 mg/dL <150 [place] Comment on above: Triglyceride Guidelines: <150 Desirable 150-199 Borderline 200-499 High >499 Very high Based on AHA Guidelines for fasting triglyceride, March 2012. Lipid Profileon 04-30-2020 Cholesterol [Mass/Vol] 152 mg/dL Normal <200 [facility] Comment on above: Result Comment: Cholesterol Guidelines: <200 Desirable 200-240 Borderline >240 Undesirable Performed By: #### Z FAST, TSHX, MG, CP, CDP #### [facility] [address] [place] [address] Live Source Operator: Elio Pate MD #### VD25, LIPR #### [email or web address] [address] [place] [address] Live Source Operator: Jose Manuel Corona MD Cholesterol in HDL [Mass/Vol] 48 mg/dL Normal >40 [facility] Comment on above: Result Comment: HDL Guidelines: <40 Undesirable 40-59 Borderline >59 Desirable Performed By: #### Z FAST, TSHX, MG, CP, CDP #### [facility] [address] [place], [place] [phone] Live Source Operator: Elio Pate MD #### VD25, LIPR #### [address] [phone] Live Source Operator: Jose Manuel Corona MD Cholesterol in LDL [Mass/Vol] 89 mg/dL Normal 0-130 [facility] Comment on above: Result Comment: LDL Guidelines: <100 Desirable 100-129 Near to/above Desirable 130-159 Borderline >159 Undesirable Direct (measured) LDL and calculated LDL are not interchangeable tests. Performed By: #### Z FAST, TSHX, MG, CP, CDP #### [facility] [address] [place], [place] [phone] Live Source Operator: Elio Pate MD #### VD25, LIPR #### [address] [phone] Live Source Operator: Jose Manuel Corona MD Cholesterol.total/Ch olesterol in HDL [Mass ratio] 3.2 {ratio} Normal <5 [facility] Comment on above: Performed By: #### Z FAST, TSHX, MG, CP, CDP #### [facility] [address] [place], [place] [phone] Live Source Operator: Elio Pate MD #### VD25, LIPR #### [facility] [employer] [facility] [place], [place] [phone] Live Source Operator: Jose Manuel Corona MD Triglyceride [Mass/Vol] 75 mg/dL Normal <150 [facility] Comment on above: Result Comment: Triglyceride Guidelines: <150 Desirable 150-199 Borderline 200-499 High >499 Very high Based on AHA Guidelines for fasting triglyceride, March 2012. Performed By: #### Z FAST, TSHX, MG, CP, CDP #### [facility] [address] [place], [place] [phone] Live Source Operator: Elio Pate MD #### VD25, LIPR #### [address] [id number] Live Source Operator: Jose Manuel Corona MD Cholesterol in VLDL [Mass/Vol] NOT REPORTED Normal 07-11 [facility] Comment on above: Performed By: #### Z FAST, TSHX, MG, CP, CDP #### [facility] [address] [place], [place] [phone] Live Source Operator: Elio Pate MD #### VD25, LIPR #### [place] [address] [place], [place] [phone] Live Source Operator: Jose Manuel Corona MD Magnesiumon 04-30-2020 Magnesium [Mass/Vol] 1.7 mg/dL Normal 1.6-2.6 [facility] Comment on above: Performed By: #### Z FAST, TSHX, MG, CP, CDP #### [facility] [address] [place], [place] [phone] Live Source Operator: Elio Pate MD #### VD25, LIPR #### [address] [id number] Live Source Operator: Jose Manuel Corona MD Magnesium [Mass/Vol] 1.7 mg/dL 1.6 - 2 .6 mg/dL [place] Otheron 04-30-2020 Immature granulocytes (Bld) [#/Vol] NOT REPORTED [place] Patient Fasting?on 0 Patient Fasting? YES [place] Patient fasting?on 0 Patient fasting? YES Normal [facility] Comment on above: Performed By: #### Z FAST, TSHX, MG, CP, CDP #### [facility] [address] [place], [place] [phone] Live Source Operator: Elio Pate MD #### VD25, LIPR #### [facility] [employer] [address] [place], [place] [phone] Live Source Operator: Jose Manuel Corona MD TSH w/reflex to FT4on 2019 TSH Qn 3.67 m[IU]/L Normal 0.30-5.00 [facility] Comment on above: Performed By: #### Z FAST, TSHX, MG, CP, CDP #### [facility] [address] [place], [place] [phone] Live Source Operator: Elio Pate MD #### VD25, LIPR #### [facility] [address] [place], [place] [phone] Live Source Operator: Jose Manuel Corona MD TSH with Reflexon 04-30-2020 TSH Qn 3.67 m[IU]/L [place] Vitamin D 25 Hydroxyon 04-30 Vit D, 25-Hydroxy 48.9 ng/mL 30 - 100 ng/mL [place] Comment on above: Reference Range: Vitamin D status Range Deficiency <20 ng/mL Mild Deficiency 20-30 ng/mL Sufficiency 30-100 ng/mL Toxicity >100 ng/mL Vitamin D 25 OHon 04-30-2020 Vitamin D 25 [place] 48.9 ng/mL Normal 30.0-100.0 [facility] Comment on above: Result Comment: Reference Range: Vitamin D status Range Deficiency <20 ng/mL Mild Deficiency 20-30 ng/mL Sufficiency 30-100 ng/mL Toxicity >100 ng/mL Performed By: #### Z FAST, TSHX, MG, CP, CDP #### [facility] [address] [place], [place] [phone] Live Source Operator: Elio Pate MD #### VD25, LIPR #### [facility] [employer] [address] [place] [address] Live Source Operator: Jose Manuel Corona MD XR CHEST (2 [...] Akhtar Jr., MD 04/30/20 Final result Normal [facility] Granulocytes/100 WBC (Bld) Dilated tortuous aorta. Small granuloma left lung of no significance. [place] EXAM: XR CHEST (2 VW ) HISTORY: Reason for exam:->a fib COMPARISON: Chest 04/16/2019 TECHNIQUE: 2 views chest FINDINGS: The aorta is dilated and tortuous including prominent ascending aorta arch and descending aorta. 5 mm calcified granuloma overlying the lateral left anterior 6th rib. Surgical clips in the right upper quadrant abdomen. No failure, pneumonia, or effusion. [place] [employer], [employer] Incoming Radiant Results From [employer] - 04/30/2020 12:37 PM EST EXAM: XR [...] Small granuloma left lung of no significance. [place] CBC Auto Differentialon 11-0 Basophils (Bld) [#/Vol] 0.00 10*3/uL [place] Basophils/100 WBC (Bld) 1 % 0 - 2 % [place] Differential Type YES [place] Eosinophils (Bld) [#/Vol] 0.10 10*3/uL [place] Eosinophils/100 WBC (Bld) 1 % 0 - 5 % [place] Erythrocyte distribution width (RBC) [Ratio] 13.6 % 12.1 - 15.2 % [place] Hematocrit (Bld) [Volume fraction] 43.1 % 41 - 53 % [place] Hemoglobin (Bld) [Mass/Vol] 14.5 g/dL 13.5 - 17.5 g/dL [place] Lymphocytes (Bld) [#/Vol] 2.60 10*3/uL [place] Lymphocytes/100 WBC (Bld) 34 % 13 - 44 % [place] MCH (RBC) [Entitic mass] 31.3 pg 26 - 34 pg [place] MCHC (RBC) [Mass/Vol] 33.7 g/dL 31 - 37 g/dL [place] MCV (RBC) [Entitic vol] 92.8 fL 80 - 100 fL [place] Monocytes (Bld) [#/Vol] 0.50 10*3/uL [place] Monocytes/100 WBC (Bld) 7 % 5 - 9 % [place] Platelet mean volume (Bld) [Entitic vol] NOT REPORTED 6 - 12 fL [place] Platelets (Bld) [#/Vol] 265 10*3/uL [place] Platelets (Bld) [#/Vol] NOT REPORTED [place] RBC (Bld) [#/Vol] 4.64 10*6/uL 4.5 - 5.9 m/uL [place] RBC morphology finding Nom (Bld) NOT REPORTED [place] Segmented neutrophils/100 WBC (Bld) 57 % 39 - 75 % [place] Segs Absolute 4.40 [place] WBC (Bld) [#/Vol] NOT REPORTED per 100 WBC [place] WBC (Bld) [#/Vol] 7.7 10*3/uL [place] WBC Morphology NOT REPORTED [place] Comprehensive Metabolic Pane oliva 04-16-2019 Albumin [Mass/Vol] 4.6 g/dL 3.5 - 5.2 g/dL [place] Albumin/Globulin [Mass ratio] NOT REPORTED [place] ALP [Catalytic activity/Vol] 75 U/L 40 - 129 U/L [place] ALT [Catalytic activity/Vol] 12 U/L 5 - 41 U/L [place] Anion gap [Moles/Vol] 14 mmol/L 9 - 17 mmol/L [place] AST [Catalytic activity/Vol] 16 U/L <40 [place] Bilirubin Ql (U) 0.83 mg/dL 0.3 - 1.2 mg/dL [place] Bun/Cre Ratio 19 [place] Calcium [Mass/Vol] 10.5 mg/dL High 8.6 - 10. 4 mg/dL [place] Chloride [Moles/Vol] 100 mmol/L 98 - 10 7 mmol/L [place] CO2 [Moles/Vol] 24 mmol/L 20 - 31 mmol/L [place] Creatinine [Mass/Vol] 1.54 mg/dL High 0.7 - 1.2 mg/dL [place] GFR 53 mL/min Low >60 [place] GFR Non- 44 mL/min Low >60 [place] GFR/1.73 sq M predicted among non-blacks MDRD (S/P/Bld) [Vol rate/Area] [place] Comment on above: Average GFR for 70 o r more years old: 75 mL/min/1.73sq m Chronic Kidney Disease: <60 mL/min/1.73sq m Kidney failure: <15 mL/min/1.73sq m eGFR calculated using average adult body mass. Additional eGFR calculator available at: http://www.[employer]/multiple_crcl_2012.htm GFR/1.73 sq M predicted among non-blacks MDRD (S/P/Bld) [Vol rate/Area] NOT REPORTED [place] Glucose [Mass/Vol] 98 mg/dL 70 - 99 mg/dL [place] Potassium [Moles/Vol] 4.0 mmol/L 3.7 - 5.3 mmol/L [place] Protein [Mass/Vol] 8.1 g/dL 6.4 - 8.3 g/dL [place] Sodium [Moles/Vol] 138 mmol/L 135 - 144 mmol/L [place] Urea nitrogen [Mass/Vol] 30 mg/dL High 8 - 23 mg/dL [place] Lipid Panelon 04-16-2019 Cholesterol [Mass/Vol] 208 mg/dL High <200 [place] Comment on above: Cholesterol Guidelines: <200 Desirable 200-240 Borderline >240 Undesirable Cholesterol in HDL [Mass/Vol] 59 mg/dL >40 [place] Comment on above: HDL Guidelines: <40 Undesirable 40-59 Borderline >59 Desirable Cholesterol in LDL [Mass/Vol] 130 mg/dL 0 - 130 mg/dL [place] Comment on above: LDL Guidelines: <100 Desirable 100-129 Near to/above Desirable 130-159 Borderline >159 Undesirable Direct (measured) LDL and calculated LDL are not interchangeable tests. Cholesterol in VLDL [Mass/Vol] NOT REPORTED 1 - 30 mg/dL [place] Cholesterol.total/Ch olesterol in HDL [Mass ratio] 3.5 {ratio} <5 [place] Triglyceride [Mass/Vol] 94 mg/dL <150 [place] Comment on above: Triglyceride Guidelines: <150 Desirable 150-199 Borderline 200-499 High >499 Very high Based on AHA Guidelines for fasting triglyceride, March 2012. Magnesiumon 04-16-2019 Magnesium [Mass/Vol] 1.8 mg/dL 1.6 - 2 .6 mg/dL [place] Otheron 04-16-2019 Interpretation and review of laboratory results Abnormal [place] Immature granulocytes (Bld) [#/Vol] NOT REPORTED [place] Patient Fasting?on 9 Patient Fasting? yes [place] TSH with Reflexon 04-16-2019 TSH Qn 2.24 m[IU]/L [place] Vitamin D 25 Hydroxyon 04-16 Vit D, 25-Hydroxy 60.3 ng/mL 30 - 100 ng/mL [place] Comment on above: Reference Range: Vitamin D status Range Deficiency <20 ng/mL Mild Deficiency 20-30 ng/mL Sufficiency 30-100 ng/mL Toxicity >100 ng/mL XR CHEST STANDARD (2 VW)on 06-16-2018 Granulocytes/100 WBC (Bld) Dilated tortuous aorta. Small granuloma left lung of no significance. [place] EXAM: XR CHEST (2 VW ) HISTORY: I10 78-year-old male essential hypertension. COMPARISON: None. TECHNIQUE: 2 views chest. FINDINGS: The aorta is dilated and tortuous including prominent ascending aorta arch and descending aorta. 5 mm calcified granuloma overlying the lateral left anterior 6th rib. Surgical clips in the right upper quadrant abdomen. No failure, pneumonia, or effusion. [place] [employer], [employer] Incoming Radiant Results From [employer] - 04/16/2019 2:19 PM EST EXAM: XR [...] Small granuloma left lung of no significance. [place] Basic Metabolic Panelon 10- Anion gap [Moles/Vol] 18 mmol/L 10 - 20 mmol/L [facility] Calcium [Mass/Vol] 10.2 mg/dL 8.4 - 10. 2 mg/dL [facility] Chloride [Moles/Vol] 101 mmol/L 98 - 10 8 mmol/L [facility] Creatinine [Mass/Vol] 1.15 mg/dL 0.8 - 1.3 mg/dL [facility] GFR/1.73 sq M predicted among non-blacks MDRD (S/P/Bld) [Vol rate/Area] The eGFR should be used for monitoring renal function only and not for medication dosing. [facility] GFR/1.73 sq M.predicted CKD-EPI (S/P/Bld) [Vol rate/Area] 60 >=60 mL/min/1.73 m2 [facility] Glucose [Mass/Vol] 60 mg/dL Low 65 - 99 mg/dL [facility] HCO3 [Moles/Vol] 24 mmol/L 21 - 32 mmol/L [facility] Interpretation and review of laboratory results Abnormal [facility] Potassium [Moles/Vol] 4.1 mmol/L 3.5 - 5.1 mmol/L [facility] Sodium [Moles/Vol] 139 mmol/L 135 - 145 mmol/L [facility] Urea nitrogen [Mass/Vol] 23 mg/dL 8 - 25 mg/dL [facility] Urea nitrogen/Creatinine [Mass ratio] 20.0 mg/mg [facility] CBC WITH AUTO DIFFERENTIALon 03-28-2019 Basophils (Bld) [#/Vol] 0.04 10*3/uL [facility] Basophils/100 WBC (Bld) 0.5 % [facility] Eosinophils (Bld) [#/Vol] 0.06 10*3/uL [facility] Eosinophils/100 WBC (Bld) 0.8 % [facility] Erythrocyte distribution width (RBC) [Entitic vol] 12.9 % 11.6 - 14.8 % [facility] Hematocrit (Bld) [Volume fraction] 39.7 % Low 41 - 53 % [facility] Hemoglobin (Bld) [Mass/Vol] 13.3 g/dL Low 13.5 - 17.5 g/dL [facility] Immature granulocytes (Bld) [#/Vol] 0.03 10*3/uL [facility] Immature granulocytes/100 WBC (Bld) 0.40 % [facility] Comment on above: The IG parameter is the percentage of metamyelocytes, myelocytes, and promyelocytes. Interpretation and review of laboratory results Abnormal [facility] Lymphocytes (Bld) [#/Vol] 2.67 10*3/uL [facility] Lymphocytes/100 WBC (Bld) 35.8 % [facility] MCH (RBC) [Entitic mass] 31.1 pg 26 - 34 pg [facility] MCHC (RBC) [Mass/Vol] 33.5 g/dL 31 - 37 g/dL [facility] MCV (RBC) [Entitic vol] 93.0 fL 80 - 100 fL [facility] Monocytes (Bld) [#/Vol] 0.51 10*3/uL [facility] Monocytes/100 WBC (Bld) 6.8 % [facility] Neutrophils (Bld) [#/Vol] 4.15 10*3/uL [facility] Neutrophils/100 WBC (Bld) 55.7 % [facility] Nucleated RBC (Bld) [#/Vol] 0.00 10*3/uL [facility] Nucleated RBC/100 WBC (Bld) [Ratio] 0.0 % [facility] Platelet mean volume (Bld) [Entitic vol] 9.5 fL 9 - 15.5 fL [facility] Platelets (Bld) [#/Vol] 222 10*3/uL [facility] RBC (Bld) [#/Vol] 4.27 10*6/uL [facility] WBC (Bld) [#/Vol] 7.46 10*3/uL [facility] ECHOCARDIOGRAM TRANSESOPHAGE [place] 04-06-2018 Transesophageal Echocardiogram ____ Patient: MANISH [facility] Rec#: [id number] (Age): 1940(77y) Height: 172.7(cm)/67(in Study Date: 04/06/2018 [...] Code(s): DOP ECHO COLOR JEOVANNY MIKA MAPG (38711) DOP ECHO COMPL (10111) RAYMOND R-T IMG 2D W/PRB IMG ACQUISJ IR (70822) Summary: Patient identity verified and ID band [...] EDT Transesophageal Echocardiogram ____ Patient: MANISH [facility] Rec#: [id number] (Age): 1940(77y) Height: 172.7(cm)/67(in Study Date: 04/06/2018 [...] Code(s): DOP ECHO COLOR JEOVANNY MIKA MAPG (30640) DOP ECHO COMPL (76613) RAYMOND R-T IMG 2D W/PRB IMG ACQUISJ IR (54542) Summary: Patient identity verified and ID band [...] Joey Fischer MD MSc Invalid Interpretation Code [facility] Basic Metabolic Panelon - Anion gap 3 molar conc 16 mmol/L Invalid Interpretation Code 10 - 20 mmol/L [facility] Calcium mass conc 9.2 mg/dL Invalid Interpretation Code 8.4 - 10.2 mg/dL [facility] Chloride molar conc 104 mmol/L Invalid Interpretation Code 98 - 108 mmol/L [facility] Creatinine mass conc 1.26 mg/dL Invalid Interpretation Code 0.8 - 1.3 mg/dL [facility] GFR/1.73 sq M predicted among non-blacks MDRD vol rate/area (S/P/Bld) The eGFR should be used for monitoring renal function only and not for medication dosing. Invalid Interpretation Code [facility] GFR/1.73 sq M.predicted CKD-EPI vol rate/area (S/P/Bld) 54 Low >=60 mL/min/1.73 m2 [facility] Glucose mass conc 85 mg/dL Invalid Interpretation Code 65 - 99 mg/dL [facility] HCO3 molar conc 24 mmol/L Invalid Interpretation Code 21 - 32 mmol/L [facility] Interpretation and review of laboratory results Abnormal Invalid Interpretation Code [facility] Potassium molar conc 4.1 mmol/L Invalid Interpretation Code 3.5 - 5.1 mmol/L [facility] Sodium molar conc 140 mmol/L Invalid Interpretation Code 135 - 145 mmol/L [facility] Urea nitrogen mass conc 22 mg/dL Invalid Interpretation Code 8 - 25 mg/dL [facility] Urea nitrogen/Creatinine mass ratio 17.5 mg/mg Invalid Interpretation Code [facility] CBCon 02-22-2018 Erythrocyte distribution width Auto Entitic volume (RBC) 12.5 % Invalid Interpretation Code 11.6 - 14.8 % [facility] Hematocrit Auto Volume Fraction (Bld) 40.4 % Low 41 - 53 % [facility] Hemoglobin mass conc (Bld) 13.6 g/dL Invalid Interpretation Code 13.5 - 17.5 g/dL [facility] Interpretation and review of laboratory results Abnormal Invalid Interpretation Code [facility] MCH Auto Entitic mass (RBC) 31.5 pg Invalid Interpretation Code 26 - 34 pg [facility] MCHC Auto mass conc (RBC) 33.7 g/dL Invalid Interpretation Code 31 - 37 g/dL [facility] MCV Auto Entitic volume (RBC) 93.5 fL Invalid Interpretation Code 80 - 100 fL [facility] Nucleated RBC #/vol (Bld) 0.00 10*3/uL Invalid Interpretation Code [facility] Nucleated RBC/100 WBC Ratio (Bld) 0.0 % Invalid Interpretation Code [facility] Platelet mean volume Auto Entitic volume (Bld) 9.5 fL Invalid Interpretation Code 9 - 15.5 fL [facility] Platelets Auto #/vol (Bld) 193 10*3/uL Invalid Interpretation Code [facility] RBC Auto #/vol (Bld) 4.32 10*6/uL Low [place] [facility] WBC Auto #/vol (Bld) 6.59 10*3/uL Invalid Interpretation Code [facility] CBC Auto Differentialon 02-10 Basophils Auto #/vol (Bld) 0.04 10*3/uL Invalid Interpretation Code [facility] Basophils/100 WBC Auto (Bld) 0.5 % Invalid Interpretation Code [facility] Eosinophils Auto #/vol (Bld) 0.13 10*3/uL Invalid Interpretation Code [facility] Eosinophils/100 WBC Auto (Bld) 1.8 % Invalid Interpretation Code [facility] Erythrocyte distribution width Auto Entitic volume (RBC) 12.9 % Invalid Interpretation Code 11.6 - 14.8 % [facility] Hematocrit Auto Volume Fraction (Bld) 41.4 % Invalid Interpretation Code 41 - 53 % [facility] Hemoglobin mass conc (Bld) 14.5 g/dL Invalid Interpretation Code 13.5 - 17.5 g/dL [facility] Immature granulocytes #/vol (Bld) 0.02 10*3/uL Invalid Interpretation Code [facility] Immature granulocytes/100 WBC (Bld) 0.30 % Invalid Interpretation Code [facility] Comment on above: The IG parameter is the percentage of metamyelocytes, myelocytes, and promyelocytes. Interpretation and review of laboratory results Abnormal Invalid Interpretation Code [facility] Lymphocytes Auto #/vol (Bld) 2.56 10*3/uL Invalid Interpretation Code [facility] Lymphocytes/100 WBC Auto (Bld) 35.2 % Invalid Interpretation Code [facility] MCH Auto Entitic mass (RBC) 32.4 pg Invalid Interpretation Code 26 - 34 pg [facility] MCHC Auto mass conc (RBC) 35.0 g/dL Invalid Interpretation Code 31 - 37 g/dL [facility] MCV Auto Entitic volume (RBC) 92.6 fL Invalid Interpretation Code 80 - 100 fL [facility] Monocytes Auto #/vol (Bld) 0.54 10*3/uL Invalid Interpretation Code [facility] Monocytes/100 WBC Auto (Bld) 7.4 % Invalid Interpretation Code [facility] Neutrophils Auto #/vol (Bld) 3.99 10*3/uL Invalid Interpretation Code [facility] Neutrophils/100 WBC Auto (Bld) 54.8 % Invalid Interpretation Code [facility] Nucleated RBC #/vol (Bld) 0.00 10*3/uL Invalid Interpretation Code [facility] Nucleated RBC/100 WBC Ratio (Bld) 0.0 % Invalid Interpretation Code [facility] Platelet mean volume Auto Entitic volume (Bld) 9.4 fL Invalid Interpretation Code 9 - 15.5 fL [facility] Platelets Auto #/vol (Bld) 218 10*3/uL Invalid Interpretation Code [facility] RBC Auto #/vol (Bld) 4.47 10*6/uL Low [place] [facility] WBC Auto #/vol (Bld) 7.28 10*3/uL Invalid Interpretation Code [facility] If not done in the last 30 days Invalid Interpretation Code [facility] Echocardiogram intraop RAYMOND heriberto clarence 02-22-2018 Transesophageal Echocardiogram ____ Patient: MANISH [facility] Rec#: [id number] (Age): 1940(77y) Height: 172.7(cm)/67(in Study Date: 02/22/2018 Weight: 71.2(kg)/157(lb Room#: hybrid BSA: 1.84 Type: Loc: Operating Room Sex: M ____ Reading: Ty Mcarthur DO, FAC Referring: Boy Austin MD Referring: CASPER BUSTOS MD Performing: Ty Mcarthur DO, FAC History: Atrial fibrillation. Diagnosis: ICD-10-PCS Unspecified atrial fibrillation (I48.91) Atrial Fibrillation (427.31) CPT Code(s): DOP ECHO COLOR JEOVANNY MIKA MAPG (05881) DOP ECHO COMPL (80473) RAYMOND R-T IMG 2D W/PRB IMG ACQUISJ IR (50072) Conclusions: 1. A RAYMOND was performed to [...] 02/22/2018 13:11:43 by: Ty Mcarthur DO, ASAFC, MIKHAIL, FSCCT Invalid Interpretation Code [facility] RAD Interface, Rad In Heartlab Xper Echopacs - 02/22/2018 1:14 PM EDT Transesophageal Echocardiogram ____ Patient: MANISH [facility] Rec#: [id number] (Age): 1940(77y) Height: 172.7(cm)/67(in Study Date: 02/22/2018 Weight: 71.2(kg)/157(lb Room#: [facility] BSA: 1.84 Type: Loc: Operating Room Sex: M ____ Reading: Ty Mcarthur DO, ASAF Referring: Boy Austin MD Referring: CASPER BUSTOS MD Performing: Ty Mcarthur DO, FAC History: Atrial fibrillation. Diagnosis: ICD-10-PCS Unspecified atrial fibrillation (I48.91) Atrial Fibrillation (427.31) CPT Code(s): DOP ECHO COLOR JEOVANNY MIKA MAPG (56195) DOP ECHO COMPL (63116) RAYMOND R-T IMG 2D W/PRB IMG ACQUISJ IR (51787) Conclusions: 1. A RAYMOND was performed to [...] at 02/22/2018 13:11:43 by: Ty Mcarthur DO, FACKatarzyna, MIKHAIL, FSCCT Invalid Interpretation Code [facility] [place] Echocardiogram limitedon Interface, Rad In Heartlab Xper Echopa - 02/22/2018 4:19 PM EDT Transthoracic Echocardiogram ____ Patient: MANISH [facility] Rec#: [id number] (Age): 1940(77y) Height: 172.72(cm)/67(i Study Date: 02/22/2018 Weight: 72.58(kg)/160(l Room#: 3355 BSA: [id number] Type: Inpatient Loc: CIL Sex: M ____ Reading: Delicia Agudelo MD, PhD, Referring: ALMITA Roician: Kelvin Putnam RDCS, RV History: Arrhythmia. Atrial fibrillation. Cancer. CVA, history. Hyperlipidemia Hypertension. S/P closure device. 21mm WatchmanTobacco abuse. Diagnosis: ICD-10-PCS Pericardial effusion (noninflammatory) (I31.3) Pericardial effusion (423.9) CPT Code(s): DOP ECHO COLOR JEOVANNY MIKA MAPG (69320) TTE R-T IMG 2D +-M-MODE REC F-UP/LMTD (33794) Study Quality The study quality is fair. [...] RAD Transthoracic Echocardiogram ____ Patient: MANISH [facility] Rec#: [id number] (Age): 1940(77y) Height: 172.72(cm)/67(i Study Date: 02/22/2018 Weight: 72.58(kg)/160(l Room#: 3355 BSA: [id number] Type: Inpatient Loc: [facility] Sex: M ____ Reading: Delicia Agudelo MD, PhD, Referring: ALMITA Relocation Counselor: Kelvin Putnam [facility], History: Arrhythmia. Atrial fibrillation. Cancer. CVA, history. Hyperlipidemia Hypertension. S/P closure device. 21mm WatchmanTobacco abuse. Diagnosis: ICD-10-PCS Pericardial effusion (noninflammatory) (I31.3) Pericardial effusion (423.9) CPT Code(s): DOP ECHO COLOR JEOVANNY MIKA MAPG (64093) TTE R-T IMG 2D +-M-MODE REC F-UP/LMTD (79838) Study Quality The study quality is fair. [...] Agudelo MD, PhD, RVT Invalid Interpretation Code [facility] [place] Metabolic Panelon 02-22-2018 Protein mass conc Red Blood Cells Invalid Interpretation Code [facility] Protein mass conc [id number] Invalid Interpretation Code [facility] Otheron 02-22-2018 Blood Type Positive Invalid Interpretation Code [facility] Blood Type Code 6200 Invalid Interpretation Code [facility] Cross Match Compatible Invalid Interpretation Code [facility] Status Info Ready Invalid Interpretation Code [facility] POC INRon 02-22-2018 INR Coag RelTime (Bld) 1.0 {INR} Invalid Interpretation Code [facility] POCT LAB Interpretation and review of laboratory results Normal Invalid Interpretation Code [facility] POCT LAB Prepare RBC: 2 Unitson 02-22 Unit Number [id number] Invalid Interpretation Code [facility] Unit Number [id number] Invalid Interpretation Code [facility] Progress Noteon 02-02-2018 HIM IP Note OR Media Relations Intern Normal [facility] Progress Noteon 01-26-2018 HIM IP Note OR Media Relations Intern Normal [facility] HIM IP Note OR Media Relations Intern Normal [facility] CT HEAD WO CONTRASTon 2017 CT [...] by:VIV Mackayigned by:Kailee Cano MD01/25/18inal result Normal [facility] Progress Noteon 01-25-2018 HIM IP Note OR Media Relations Intern Normal [facility] Progress Noteon 11-14-2017 HIM IP Note OR Media Relations Intern Normal [facility] HIM IP Note OR Media Relations Intern Normal [facility] Vital Signs Date Time Vital Sign Value Performing Clinician Faci lity 05-20-2024 11:050 Body height 172.7 cm Cedric Carr MD Work Phone: [facility] 05-20-2024 11:26-0500 Body mass index (BMI) [Ratio] 23.11 kg/m2 Cedric Carr MD Work Phone: [facility] 05-20-2024 11:26-0500 Body weight 68.95 kg Cedric Carr MD Work Phone: [facility] 05-20-2024 11:26-0500 Diastolic blood pressure 70 mm[Hg] Cedric Carr MD Work Phone: [facility] 05-20-2024 11:26-0500 Heart rate 71 /min Cedric Carr MD Work Phone: [facility] 05-20-2024 11:26-0500 SaO2% (BldA) [Mass fraction] 99 % Cedric Carr MD Work Phone: [facility] 05-20-2024 11:26-0500 Systolic blood pressure 110 mm[Hg] Cedric Carr MD Work Phone: [facility] 07-24-2023 11:54-0500 Body mass index (BMI) [Ratio] 22.96 kg/m2 Cedric Carr MD Work Phone: [facility] 07-24-2023 11:54-0500 Body weight 68.49 kg Cedric Carr MD Work Phone: [facility] 07-24-2023 11:54-0500 Diastolic blood pressure 78 mm[Hg] Cedric Carr MD Work Phone: [facility] 07-24-2023 11:54-0500 Systolic blood pressure 118 mm[Hg] Cedric Carr MD Work Phone: [facility] 03-28-2019 14:02-0400 BP Diastolic 80 mm[Hg] [facility] 03-28-2019 14:02-0400 BP Systolic 170 mm[Hg] [facility] 03-28-2019 13:38-0400 BMI (Body Mass Index) 24.02 kg/m2 [facility] 03-28-2019 13:38-0400 Body Temperature 97.7 [degF] [facility] 03-28-2019 13:38-0400 Body weight 71.67 kg [facility] 03-28-2019 13:38-0400 Pulse (Heart Rate) 53 /min [facility] 03-28-2019 13:38-0400 Pulse Oximetry 100 % [facility] 03-28-2019 13:38-0400 Respiratory Rate 16 /min [facility] 04-06-2018 12:10-0400 BP Diastolic 77 mm[Hg] [facility] 04-06-2018 12:10-0400 BP Systolic 135 mm[Hg] [facility] 04-06-2018 12:10-0400 Pulse (Heart Rate) 44 /min [facility] 04-06-2018 12:10-0400 Pulse Oximetry 96 % [facility] 04-06-2018 12:10-0400 Respiratory Rate 13 /min [facility] 04-06-2018 09:40-0400 BMI (Body Mass Index) 24.33 kg/m2 [facility] 04-06-2018 09:40-0400 Body Temperature 97.59 [degF] [facility] 04-06-2018 09:40-0400 BP Diastolic 86 mm[Hg] [facility] 04-06-2018 09:40-0400 BP Systolic 158 mm[Hg] [facility] 04-06-2018 09:40-0400 Pulse (Heart Rate) 48 /min [facility] 04-06-2018 09:40-0400 Pulse Oximetry 95 % [facility] 04-06-2018 09:40-0400 Respiratory Rate 16 /min [facility] 04-06-2018 09:40-0400 Weight 72.58 kg [facility] 02-22-2018 16:23-0400 BP Diastolic 80 mm[Hg] [facility] 02-22-2018 16:23-0400 BP Systolic 144 mm[Hg] [facility] 02-22-2018 16:23-0400 Pulse (Heart Rate) 54 /min [facility] 02-22-2018 16:23-0400 Respiratory Rate 19 /min [facility] 02-22-2018 15:00-0400 Pulse Oximetry 98 % [facility] 02-22-2018 10:55-0400 Body Temperature 97.2 [degF] [facility] 02-22-2018 08:46-0400 BMI (Body Mass Index) 24.33 kg/m2 [facility] 02-22-2018 08:46-0400 Height 172.7 cm [facility] 02-22-2018 08:46-0400 Weight 72.58 kg [facility] 12-26-2017 13:40-0400 BMI (Body Mass Index) 24.33 kg/m2 Boy Austin [facility] 12-26-2017 13:40-0400 Body Temperature 97.59 [degF] Boy Austin [facility] 12-26-2017 13:40-0400 BP Diastolic 83 mm[Hg] Boy Austin [facility] 12-26-2017 13:40-0400 BP Systolic 166 mm[Hg] Boy Austin [facility] 12-26-2017 13:40-0400 Height 172.7 cm Boy Geovanna [facility] 12-26-2017 13:40-0400 Pulse (Heart Rate) 54 /min Boy Austin [facility] 12-26-2017 13:40-0400 Pulse Oximetry 98 % Boy Austin [facility] 12-26-2017 13:40-0400 Respiratory Rate 16 /min Boy Austin [facility] 12-26-2017 13:40-0400 Weight 72.58 kg Boy Austin [facility] Encounters Encounter Date Encounter Type Care Provider Facility Start: 09-11-2024 End: 09-11-2024 Bamboo flowsmima Carr MD Work Phone: [facility] Start: 09-11-2024 End: 09-11-2024 Bamboo flowsheet Cedric Carr MD Work Phone: [facility] Start: 09-11-2024 End: 09-11-2024 ambulatory CEDRIC CARR Not Available Start: 05-20-2024 End: 05-20-2024 Bamboo flowsheet Cedric Carr MD Work Phone: [facility] Start: 05-20-2024 End: 05-20-2024 Bamboo flowsheet Cedric Carr MD Work Phone: [facility] [...] 10-17-2023 ambulatory CEDRIC CARR Not Available Start: 07-24-2023 Bamboo flowsheet Cedric [...] depression (CMS/HCC) Start: 03-24-2023 End: 03-24-2023 [facility] Start: 08-24-2022 End: 08-24-2022 ambulatory [facility] Start: 02-03-2022 End: 02-04-2022 ambulatory UDAY BROWNLEE Facility: Start: 11-10-[address] CEDRIC CARR Facil ity:[facility]1 Start: 07-22-2021 End: 07-23-[address] CEDRIC CARR Facility:[facility] Start: 07-21-2021 End: 07-22-2021 ambulatory UDAY BROWNLEE Facility:[facility] Start: 10-31-2020 End: 11-03-2020 Evaluation and management of inpatient ENOCH SNEHAL Facility:[facility] Start: 06-26-2020 End: 06-26-2020 Orders Only Leana Pura Mcgrath Work Phone: [facility] Start: 04-30-2020 End: 05-03-2020 Patient encounter procedure KYLE RUTH [facility] Start: 04-30-2020 End: 05-02-2020 Subsequent hospital visit by physician [facility] Additional Xray At [facility] Laboratory Comment on above: Essential hypertensi on; Other hyperlipidemia; Vitamin D deficiency disease; Chronic atrial fibrillation currently in NSR for 3 years on flecainaide Vitamin D deficiency disease; Essential hypertension; Other hyperlipidemia Start: 03-23-2020 End: 03-23-2020 Documentation procedure Jennifer Tan [facility] Start: 03-23-2020 Patient encounter procedure ANGELA PATEL [facility] Start: 03-13-2020 [facility] Start: 04-16-2019 End: 04-18-2019 Subsequent hospital visit by physician Jackeline Additional Xray At [facility] Radiology Comment on above: Essential hypertensi on Essential hypertensi on; Chronic atrial fibrillation currently in NSR for 3 years on flecainaide; Vitamin D deficiency disease; Other hyperlipidemia Essential hypertensi on; Chronic atrial fibrillation currently in NSR for 3 years on flecainaide Start: 03-28-2019 End: 03-28-2019 Patient encounter procedure ELIOKristin PERDUE [facility] Start: 03-28-2019 End: 03-28-2019 Office outpatient visit 15 minutes Austen Jeff Work Phone: [facility] Comment on above: PAF (paroxysmal atri al fibrillation) (HCC) Start: 09-12-2018 End: 09-12-2018 Documentation procedure Jennifer Tan [facility] Start: 04-06-2018 End: 04-06-2018 Patient encounter Austen Jeff Work Phone: [facility] Cardiac Non-Invasive Lab Comment on above: PAF (paroxysmal atri al fibrillation) (HCC) Start: 04-06-2018 End: 04-06-2018 Office outpatient visit 15 minutes Binugail Andrew Keirasimi Work Phone: [facility] Comment on above: PAF (paroxysmal atri al fibrillation) (HCC); MENDEZ (acute kidney injury) (HCC) Start: 02-22-2018 End: 02-22-2018 Evaluation and management of inpatient Generic [facility] Procedural Care Unit Comment on above: PAF (paroxysmal atri al fibrillation) (HCC); PAF (paroxysmal atrial fibrillation) (HCC) Start: 01-31-2018 Patient encounter Yelena Adam Eleazar Vasquez [facility] Start: 01-25-2018 End: 01-28-2018 [facility] Start: 01-03-2018 Patient encounter Alexa Gurwinder [facility] Start: 12-26-2017 End: 12-26-2017 Office outpatient new 60 minutes Angela mSith Work Phone: [facility] Procedures Date Procedure Procedure Detail Performing Clinician Start: 08-24-2022 Follow-up visit Follow-up UDAY BRWONLEE Start: 11-02-2020 DILATION OF 1 COR ART [...] Work Phone: Start: 04-30-2020 Comprehensive metabolic panel Klye Ruth Work Phone: Start: 04-30-2020 Lipid panel [...] End: 02-22-2018 POC INR - RALS Generic [facility] Start: 02-22-2018 End: 02-22-2018 PREPARE RBC Austen vargas Work Phone: Start: 01-25-2018 Ct head/brain w/o contrast material MAEVE DESOUZA Plan of Treatment Date Care Activity Detail Author Start: 12-23-2025 Tetanus vaccination [facility] Start: 02-10-2025 Influenza vaccination Influenz a Vaccine (Season Ended) [facility] Start: 09-11-2024 End: 09-11-2024 Patient encounter procedure 09/11/2024 2:00 PM EDT Office Visit [facility] [address] [facility] [address] [place] [address] Cedric Carr MD [address] [facility] [address] [place] [address] (Fax) Encounter for examination following treatment at hospital; Encounter for staple removal; Laceration of left wrist, subsequent encounter [facility] Comment on above: Encounter for examin ation following treatment at hospital; Encounter for staple removal; Laceration of left wrist, subsequent encounter Start: 05-20-2024 End: 05-20-2025 XR Shoulder - left 2 Views XR shoulder 2+ views left Imaging Routine Acute pain of left shoulder Fall, sequela Expected: 05/20/2024 (Approximate), Expires: 05/20/2025 [facility] Work Phone: Comment on above: Expected: 05/20/2024 (Approximate), Expires: 05/20/2025 Start: 05-20-2024 End: 05-20-2024 Patient encounter procedure [facility] Comment on above: Moderate major depre ssion (CMS/HCC); Generalized anxiety disorder (CMS/HCC); Mild cognitive impairment; Vascular dementia without behavioral disturbance (CMS/HCC); 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); Controlled substance agreement signed Start: 02-11-2024 Influenza vaccination Influenza Vacc ine (#1) [facility] Start: 08-02-2023 End: 08-02-2023 ambulatory 08/02/2023 10:00 AM EST Evaluation [facility] [address] [place] [address] Tish Yañez, PT [facility] Start: 07-24-2023 End: 07-24-2023 Patient encounter procedure 07/24/2023 11:30 AM EST Office Visit [facility] [address] [place] [address] Cedric Carr MD [address] [place] [address] (Fax) Vascular dementia without behavioral disturbance (CMS/HCC); White matter disease; Adult situational stress disorder (CMS/HCC); Moderate major depression (CMS/HCC); Chronic fatigue; Polypharmacy [facility] Comment on above: Vascular dementia wi thout behavioral disturbance (CMS/HCC); White matter disease; Adult situational stress disorder (CMS/HCC); Moderate major depression (CMS/HCC); Chronic fatigue; Polypharmacy Start: 02-10-2023 Influenza vaccination Influenza Vacc ine (#1) [facility] Start: 02-02-2023 Medicare Annual Well ness (AWV) Medicare Annual Wellness (AWV) [facility] Start: 04-30-2021 Creatinine measurement Creatinine mo [place], [place] Start: 04-30-2021 Lipid panel Lipid screen [place], [place] Start: 04-30-2021 Potassium monitoring Potassium monit [place], [place] Start: 10-29-2020 End: 10-29-2020 Office Visit 10/29/2020 Office Visit Cardiology Kyle Ruth MD [address] [place] [address] [phone] [facility] Scale Clerk Start: 04-16-2020 Creatinine measurement Creatinine mo [place], [place] Start: 04-16-2020 Creatinine monitoring Creatinine mon itoring [place], [place] Start: 04-16-2020 Lipid panel Lipid screen [place], [place] Start: 04-16-2020 Lipid screen Lipid screen [place], [place] Start: 04-16-2020 Potassium monitoring Potassium monit [place], [place] Start: 02-11-2020 Influenza vaccination Flu vaccine (# 1) [place] Start: 02-11-2020 Influenza vaccinatio n given Sequential Influenza Vaccine (#1) [facility] Start: 11-07-2019 End: 11-07-2019 Office Visit 11/07/2019 Office Visit Cardiology Kyle Ruth MD [address] [place] [address] [facility] Scale Clerk Start: 07-09-2019 History and physical examination, annual for health maintenance Wellness Visit [facility] Start: 02-10-2019 Influenza vaccination Flu vaccine (# 1) [place], [place] Start: 02-10-2019 Influenza vaccinatio n given SEQUENTIAL INFLUENZA VACCINE (#[facility]) [facility] Start: 12-02-2018 Annual Wellness Visi t (AWV) Annual Wellness Visit (AWV) [place] Start: 04-06-2018 End: 04-06-2018 Ambulatory 04/06/2018 Office Visit Cardiology Austen Jeff, CORPORATE MANAGER [address] [place] [address] [phone] [facility] Start: 02-22-2018 Ambulatory [facility] Tray Delivery Aide Start: 02-10-2018 Influenza vaccination SEQUENTI AL INFLUENZA VACCINE (#1) [facility] Start: 02-10-2018 Influenza vaccinatio n given SEQUENTIAL INFLUENZA VACCINE (#1) [facility] Start: 2004 Fall risk assessment Grey [place] ll Risk Assessment [facility] Start: 2004 Pneumococcal 65+ yea rs Vaccine (1 of 1 - PPSV23) Pneumococcal 65+ years Vaccine (1 of 1 - PPSV23) [place] Start: 2004 Pneumococcal vaccination PNEUM OCOCCAL VACCINE AGE 65+ (1 of 2 - PCV13) [facility] Start: 1999 Zoster vaccine hzv l riccardo for subcutaneous use ZOSTER VACCINE [facility] Start: 1989 Administration of he rpes zoster vaccine ZOSTER VACCINES (1 of 2) [facility] Start: 1989 Shingles Vaccine (1 of 2) Darling gles Vaccine (1 of 2) [place] Start: 1989 ZOSTER VACCINES (1 of 2) ZOSTER VACC ANTON (1 of 2) [facility] Start: 1958 DTaP/Tdap/Td vaccine (1 - Tdap) DTaP/Tdap/Td vaccine (1 - Tdap) [place] Start: 1951 Adolescent depressio n screening assessment Depression Screening (PHQ9) [facility] Start: 1949 Albumin DL <= 20 mg/ L mass conc (U) URINE MICROALBUMIN [facility] Start: 1942 History and physical examination, annual for health maintenance Wellness Visit [facility] Start: 1939 Fall risk assessment Falls Risk Asse ssment [facility] End: 04-06-2019 Basic metabolic 2000 panel Basic Metabolic Panel Routine PAF (paroxysmal atrial fibrillation) ([facility]) 1 Occurrences starting 04/06/2018 until 04/06/2019 [facility] Comment on above: 1 Occurrences starti ng 04/06/2018 until 04/06/2019 Basic metabolic 2000 panel Basic Metabolic Panel Routine PAF (paroxysmal atrial fibrillation) ([facility]) 04/06/2018 10:12 AM EDT [facility] Cardiac catheterization Cardiac Catheterization Routine PAF (paroxysmal atrial fibrillation) ([facility]) 02/22/2018 10:49 AM EDT [facility] EKG [address] [place], [place] Immunizations Immunization Date Immunization Notes Care Provider Fa [facility] 06-02-2024 tetanus toxoid, redu rosana diphtheria toxoid, and acellular pertussis vaccine, adsorbed Cedric Carr MD Work Phone: [facility] Work Phone: 07-31-2019 influenza, injectabl e, quadrivalent, preservative free Cedric Carr MD Work Phone: [facility] 07-31-2019 influenza virus vacc ine, unspecified formulation Cedric Carr MD Work Phone: [facility] 03-12-2019 influenza, injectabl e, quadrivalent, preservative free Cedric Carr MD Work Phone: [facility] 08-08-2018 influenza, injectabl e, quadrivalent, preservative free Cedric Carr MD Work Phone: [facility] 03-24-2017 influenza, high dose seasonal, preservative-free Cedric Carr MD Work Phone: [facility] 03-20-2017 influenza, injectabl e, quadrivalent, preservative free Cedric Carr MD Work Phone: [facility] 06-29-2016 influenza, injectabl e, quadrivalent, preservative free Cedric Carr MD Work Phone: [facility] 06-29-2016 influenza, seasonal, injectable, preservative free Cedric Carr MD Work Phone: [facility] 04-25-2016 influenza, injectabl e, quadrivalent, preservative free Cedric Carr MD Work Phone: [facility] 04-25-2016 pneumococcal conjuga te vaccine, 7 valent Cedric Carr MD Work Phone: [facility] 04-25-2016 pneumococcal Conjuga te, unspecified formulation Cedric Carr MD Work Phone: [facility] 12-24-2015 tetanus and diphther ia toxoids, adsorbed, preservative free, for adult use (5 Lf of tetanus toxoid and 2 Lf of diphtheria toxoid) Cedric Carr MD Work Phone: [facility] 05-14-2015 influenza virus vacc ine, unspecified formulation Cedric Carr MD Work Phone: [facility] 04-27-2015 influenza, injectabl e, quadrivalent, preservative free Cedric Carr MD Work Phone: [facility] 02-11-2015 pneumococcal conjuga te vaccine, 13 valent Cedric Carr MD Work Phone: [facility] 05-30-2014 influenza, seasonal, injectable, preservative free Cedric Carr MD Work Phone: [facility] 2013 diphtheria, tetanus toxoids and acellular pertussis vaccine Cedric Carr MD Work Phone: [facility] 2013 influenza virus vacc ine, unspecified formulation Cedric Carr MD Work Phone: [facility] 2013 influenza, injectabl e, quadrivalent, preservative free Cedric Carr MD Work Phone: [facility] 03-24-2010 influenza virus vacc ine, unspecified formulation Cedric Carr MD Work Phone: [facility] 03-24-2010 influenza, injectabl e, quadrivalent, preservative free Cedric Carr MD Work Phone: [facility] 03-24-2009 influenza virus vacc ine, unspecified formulation Cedric Carr MD Work Phone: [facility] [facility] 03-24-2009 influenza, injectabl e, quadrivalent, preservative free Cedric Carr MD Work Phone: [facility] 06-24-2008 influenza virus vacc ine, unspecified formulation Cedric Carr MD Work Phone: [facility] 05-20-2005 pneumococcal polysaccharide vaccine, 23 valent Cedric Carr MD Work Phone: [facility] 05-20-2005 pneumococcal vaccine , unspecified formulation Cedric Carr MD Work Phone: [facility] Payers Date Payer Category Payer Private Health Insurance [employer] [id number] 2022 Unknown [employer] [facility] [employer] [id number] 2022-Present [address] [place] [id number] .[id number] 2019 Unknown [facility] xxxxx xxxx 2019-Present xxxxxxxxx [id number] .[id number] 2019 Unknown [id number] 2019 Unknown [facility] xxxxx [id number] 2019-Present [id number] [id number] .7.3.397302.315 2015 Medicare [id number] 2009 Unknown xxxxxxxxxx [id number] .7.3.937825.315 2009 Unknown [employer] MONE[employer] [id number] 2009-Present [id number] 1.2.840.570819.1.13.385.2 .7.3.238526.315 2004 Medicare xxxxxxxxxxx [id number] .7.3.579261.315 2004 Medicare MEDICARE MEDICAR E PART A & B [id number] 2004-Present MD [id number] 1.2.840.842548.1.13.385.2 .7.3.510525.315 2004 Medicare [id number]. 1.13.693.2 .7.3.561611.315 2004 Medicare [id number] 1959 Medicare [id number] 1959 Self-pay 1959 Unknown [id number] 1939 Unknown [id number] 2.16.840.1.375970.3.579.2 .900 1939 Unknown [id number] 2.16.840.1.375962.3.579.2 .900 1939 Unknown [id number] 2.16.840.1.626603.3.579.2 .900 1939 Unknown [id number] 2.16.840.1.177060.3.579.2 .174 1939 Unknown [id number] 2.16.840.1.695833.3.579.2 .174 1939 Unknown [id number] 2.16.840.1.353916.3.579.2 .174 1939 Unknown [id number] 2.16.840.1.709702.3.579.2 .174 1939 Unknown [id number] 2.16.840.1.400800.3.579.2 .647 1939 Unknown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
--- NOTE | 2024-09-18 03:59 | ECG_ITS ---
[facility] Test Date: 2024-09-18 Pat Name: NETTE CAO Department: Room: - Gender: Male Duplicate Maker: : 1940 Requested By: JC CARR Order Number: [id number] Reading MD: RADHA KHANNA Measurements Intervals [place] Rate: 74 P: -05703 CA: -50127 QRS: -15 QRSD: 86 T: 10 QT: 394 QTc: 421 Interpretive Statements 1210 Atrial fibrillation 9140 abnormal rhythm ECG Compared to ECG 08/23/2023 17:43:46 No significant changes Electronically Signed On 09-18-2024 14:07:04 EDT by RADHA KHANNA
--- NOTE | 2024-09-18 04:01 | ED_ITS ---
HPI HPI - Fall General Chief Complaint: Fall Stated Complaint: FALL HIT HEAD Time Seen by Provider: 09/18/24 03:36 Source: patient Mode of arrival: Wheelchair History of Present Illness HPI Narrative: This 84-year-old male is brought to the emergency department by his daughter. The patient is at home in his house alone at night after 11 PM until sometime in the morning when somebody brings him breakfast. There is a camera in the house. The patient's daughter states that she left him around 11 PM after he went to bed. He appeared to be getting up to use the bathroom this morning and then he was no longer on the camera. He had fallen at the house. The patient's daughter went to his house and found him on the floor. He was awake but somewhat confused. She called her brother to help get him up. The patient states that he fell and thinks he hit the back of his head where he has some tenderness in the left posterior parietal aspect of his scalp. He denies any neck pain. He has no chest pain or shortness of breath. He does have a history of atrial fibrillation but is not on blood thinners after receiving the Watchman device. He denies any neck pain or back pain. He has no lower extremity pain or swelling. The patient's daughter states she is concerned because his level of confusion is much greater than it typically is. The patient is at home alone, his is in a ch[facility] with dementia and his son who he thinks is currently living with him 7 years ago. He has not had any fever. He has not had any vomiting or diarrhea. He does sleep a lot which is normal for him. There is been no new medication changes. Related Data Home Medications ?Medication ?Instructions ?Recorded ?Confirmed alprazolam 1 mg tablet,extended 1 mg PO QAM 08/16/23 09/18/24 release 24 hr aspirin 81 mg tablet,delayed 81 mg PO DAILY 08/16/23 09/18/24 release donepezil 10 mg tablet 20 mg PO .QHS 08/16/23 08/24/23 aripiprazole 5 mg tablet 2.5 mg PO .QHS 08/23/23 08/24/23 amlodipine 5 mg tablet 5 mg PO DAILY 06/02/24 09/18/24 escitalopram oxalate 20 mg tablet 20 mg PO DAILY 06/02/24 09/18/24 losartan 50 mg tablet 50 mg PO DAILY 06/02/24 09/18/24 Allergies Allergy/AdvReac Type Severity Reaction Status Date / Time Sulfa (Sulfonamide Allergy Mild Unknown Verified 09/03/24 14:04 Antibiotics) Opioid HPI Opioid Management Most Recent Pain and Opioid Data: Last ORT Total Score 0 08/23/23 20:06 08/23/23 Last ORT Risk Category Low Risk 08/23/23 20:06 08/23/23 Review of Systems ROS Status of ROS 10 or more systems reviewed and unremark able except as noted in history and below [facility] Medical History Dementia ?F03.90 - Unspecified dementia, unspecified severity, without behavioral disturbance, psychotic disturbance, mood disturbance, and anxiety (ICD-10) Pre-syncope ?R55 - Syncope and collapse (ICD-10) Multiple falls ?R29.6 - Repeated falls (ICD-10) Syncope ?R55 - Syncope and collapse (ICD-10) Generalized weakness ?R53.1 - Weakness (ICD-10) Myocardial infarct ?I21.9 - Acute myocardial infarction, unspecified (ICD-10) Hypertension ?I10 - Essential (primary) hypertension (ICD-10) Brain bleed ?I61.9 - Nontraumatic intracerebral hemorrhage, unspecified (ICD-10) Presence of Watchman left atrial appendage closure device ?Z95.818 - Presence of other cardiac implants and grafts (ICD-10) A-fib ?I48.91 - Unspecified atrial fibrillation (ICD-10) Prostate cancer ?C61 - Malignant neoplasm of prostate (ICD-10) Family History Other Family history of cancer Social History Within the past year, how often did you have a drink containing alcohol: never Within the past year, how many standard drinks containing alcohol did you have on a typical day: 1 or 2 Within the past year, how often did you have six or more drinks on one occasion: never Total score: 0 Score interpretation: A score less than 4 is consistent with normal alcohol consumption. Smoking status: Former smoker Non-prescribed substance use: denies use Highest level of school completed/degree received: some college, no degree Little interest or pleasure in doing things: not at all Feeling down, depressed, or hopeless: not at all Gender Identity: female Exam Narrative Exam Narrative: Vital signs and Nursing Notes reviewed: Patient is afebrile with a normal pulse, blood pressure is elevated 167/117, he is not hypoxic with pulse ox of 96% on room air General: Awake, alert, oriented to person and place. Patient thinks it is May and is unsure of the date, GCS 15 HEENT: Normocephalic atraumatic, mucous membranes are moist and pink, eyes are clear, normal conjunctiva, vision is grossly intact, posterior pharynx is normal in appearance. Neck: Supple, no midline bony vertebral tenderness or step-off Chest: Lungs are clear to auscultation with good air entry, there is no wheezing rhonchi or rales appreciated no accessory muscle use, patient is speaking in complete sentences-no chest wall tenderness to palpation CVS: Irregular rate and rhythm S1-S2, no murmurs rubs or gallops, pulses are brisk and equal bilaterally ABD: Soft, nondistended, nontender, no rebound guarding or rigidity, bowel sounds are normal, no pulsatile masses appreciated Extremities: Moving all extremities, no lower extremity tenderness or swelling noted Skin: Normal in appearance without rash,pallor, petechiae or purpura Neuro: No focal deficits; speech is clear, there is no facial droop, 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 is intact, upper and lower extremity strength and sensation is intact, memory for recent events is lacking but for historical events is intact Constitutional Vital Signs, click to edit/add: Last Vital Signs Temp 97.7 F 09/18/24 03:34 Pulse 72 09/18/24 06:40 Resp 19 09/18/24 06:40 BP 148/109 H 09/18/24 06:30 Pulse Ox 97 09/18/24 06:40 O2 Del Method Room Air 09/18/24 03:34 Course Vital Signs Vital signs: Vital Signs Temperature 97.7 F 09/18/24 03:34 Pulse Rate 87 09/18/24 03:34 Respiratory Rate 14 09/18/24 03:34 Blood Pressure 167/117 H 09/18/24 03:34 Pulse Oximetry 96 09/18/24 03:34 Oxygen Delivery Method Room Air 09/18/24 03:34 Temperature 97.7 F 09/18/24 03:34 Pulse Rate 72 09/18/24 06:40 Respiratory Rate 19 09/18/24 06:40 Blood Pressure 148/109 H 09/18/24 06:30 Pulse Oximetry 97 09/18/24 06:40 Oxygen Delivery Method Room Air 09/18/24 03:34 MDM - Fall MDM Narrative Medical decision making narrative: This 84-year-old male with a history of atrial fibrillation who is not on blood thinners after receiving the Watchman device is brought to the emergency department by his daughter. The daughter monitors him at home on a camera and saw him walking earlier in the night and then he was off of the camera. She assumed he had fallen and went to his house. She found him on the floor. Patient's recollection regarding his fall is very limited. He does have a history of some degree of memory loss. He currently lives at home with family members and friends looking in on him. The patient's daughter called her brother to help get her father off the floor and then she brought him to the emergency department. He does not have any sign of injury. He is awake alert oriented to person and place although he does not know the date or time. The daughter states that this degree of confusion is markedly different than he has been in the past several days and is concerned that there may be something else going on. She was concerned that he may have a urinary tract infection however his urine is normal. His EKG is a pattern of atrial fibrillation which he is known to have that is rate controlled at 74 bpm. An IV was placed and he was given gentle IV hydration. Routine labs are reviewed. He has a normal white count and stable hemoglobin. Electrolytes are normal. Troponin is normal. Liver function tests are normal. CT scan of the brain and cervical spine as well as a 1 view chest x-ray was ordered. It was read by radiology. There is no acute intracranial hemorrhage mass effect or edema. Mild to moderate generalized brain volume loss consistent with age was present. There was no skull fracture or acute cervical spine fracture or dislocation. X-ray of the chest was also reviewed which shows mildly enlarged heart size with mild hypoinflated lungs but no pulmonary contusion pleural effusion or pneumothorax. The results of these findings were discussed with the daughter. She feels comfortable taking the patient home at this time. Lab Data Attestation: I reviewed the patient's lab results. Labs: Lab Results 09/18/24 09/18/24 Range/Units 04:20 05:36 WBC 7.8 (4.0-11.0) 10^3/uL RBC 4.40 L (4.70-6.10) 10^6/uL Hgb 14.0 (14.0-18.0) g/dL Hct 41.5 L (42.0-54.0) % MCV 94.3 H (80.0-94.0) fL MCH 31.8 (25.9-34.0) pg MCHC 33.7 (29.9-35.2) g/dL RDW 13.1 (11.0-15.0) % Plt Count 178 (150-450) 10^3/uL MPV 9.1 L (9.5-13.5) fL Neut % (Auto) 61.9 (43.0-75.0) % Lymph % (Auto) 24.6 (20.5-60.0) % [place] % (Auto) 7.9 (1.7-12.0) % Eos % (Auto) 4.2 (0.9-7.0) % Baso % (Auto) 0.6 (0.2-2.0) % Neut # (Auto) 4.8 (1.4-6.5) 10^3/uL Lymph # (Auto) 1.9 (1.2-3.8) 10^3/uL [place] # (Auto) 0.6 (0.3-0.8) 10^3/uL Eos # (Auto) 0.3 (0.0-0.7) 10^3/uL Baso # (Auto) 0.1 (0.0-0.1) 10^3/uL Abs Immat Gran (auto) 0.06 H (0.00-0.03) 10^3/uL Imm/Tot Granulo (auto) 0.8 H (0.0-0.5) % Sodium 139 (136-145) mmol/L Potassium 4.1 (3.5-5.1) mmol/L Chloride 103 (98-107) mmol/L Carbon Dioxide 28.6 (21.0-32.0) mmol/L Anion Gap 11.5 BUN 23.0 H (7.0-18.0) mg/dL Creatinine 1.29 (0.70-1.30) mg/dL Est GFR ( Amer) >60 (>=60 mL/min/1.73m^2) Est GFR (Non-Af Amer) 53 L (>=60 mL/min/1.73m^2) BUN/Creatinine Ratio 17.8 Glucose 92 (74-106) mg/dL Lactate 1.5 (0.4-2.0) mmol/L Calcium 9.1 (8.5-10.1) mg/dL Total Bilirubin 0.5 (0.2-1.0) mg/dL AST 10 L (15-37) U/L ALT 14 L (16-63) U/L Alkaline Phosphatase 71 (46-116) U/L Troponin I High Sens 5.8 (4.0-76.1) pg/mL Total Protein 7.1 (6.4-8.2) g/dL Albumin 3.3 L (3.4-5.0) g/dL Globulin 3.8 g/dL Albumin/Globulin Ratio 0.9 Urine Color Lt. yellow (YELLOW) Urine Clarity Clear (CLEAR) Urine pH 6.0 (5.0-9.0) Ur Specific [place] 1.025 (1.005-1.025) Urine Protein 100 A (NEG/TRACE) mg/dL Urine Glucose (UA) Negative (NEGATIVE) mg/dL Urine Ketones Negative (NEGATIVE) mg/dL Urine Occult Blood Trace-i (NEGATIVE) Urine Nitrite Negative (NEGATIVE) Urine Bilirubin Negative (NEGATIVE) Urine Urobilinogen 0.2 (0.2-1.0) EU/dL Ur Leukocyte Esterase Negative (NEGATIVE) Urine RBC None seen (0-2) #/HPF Urine WBC 0-2 A (NONE SEEN) #/HPF Ur Squamous Epith Cells None seen (NONE/RARE) #/LPF Urine Crystals None seen (None Seen) #/HPF Urine Bacteria None seen (NONE SEEN) #/HPF Urine Casts Seen A (NONE SEEN) #/LPF Hyaline Casts Rare Urine Mucus None seen (NONE SEEN) Ur Culture Indicated? No ECG Data Attestation: I personally reviewed and interpreted this ECG as follows: (Atrial fibrillation at 74 bpm, normal axis, no acute ST segment elevation or T wave inversion) Discharge Plan Discharge Chief Complaint: Fall Clinical Impression: Fall Patient Disposition: Home, Self-Care Time of Disposition Decision: 06:53 Condition: Good Prescriptions / Home Meds: No Action alprazolam 1 mg tablet extended release 24 hr 1 mg PO QAM aspirin 81 mg tablet,delayed release (DR/EC) 81 mg PO DAILY donepezil 10 mg tablet 20 mg PO .QHS losartan 50 mg tablet 50 mg PO DAILY amlodipine 5 mg tablet 5 mg PO DAILY escitalopram oxalate 20 mg tablet 20 mg PO DAILY aripiprazole 5 mg tablet 2.5 mg PO .QHS Print Language: Slovenian Instructions: Fall Prevention for Older Adults (ED) Referrals: JC CARR [Primary Care Provider] - 1 week
[2024-09-18] MEDS: 0.9 % SODIUM CHLORIDE 1,000 ML 125 ML IV (04:23)
[2024-09-18 04:30] LABS: Basophils Absolute Auto 0.1 10^3/uL (0.0-0.1); Basophils Percent Auto 0.6 % (0.2-2.0); Eosinophils Absolute Auto 0.3 10^3/uL (0.0-0.7); Eosinophils Percent Auto 4.2 % (0.9-7.0); Hematocrit 41.5 % (42.0-54.0); Immature Granulocytes Abs Auto 0.06 10^3/uL (0.00-0.03); Immature Granulocytes Pct Auto 0.8 % (0.0-0.5); Lymphocytes Absolute Auto 1.9 10^3/uL (1.2-3.8); Lymphocytes Percent Auto 24.6 % (20.5-60.0); Mean Corpuscular HGB Conc 33.7 g/dL (29.9-35.2); Mean Corpuscular Hemoglobin 31.8 pg (25.9-34.0); Mean Corpuscular Volume 94.3 fL (80.0-94.0); Mean Platelet Volume 9.1 fL (9.5-13.5); Monocytes Absolute Auto 0.6 10^3/uL (0.3-0.8); Monocytes Percent Auto 7.9 % (1.7-12.0); Neutrophils Absolute Auto 4.8 10^3/uL (1.4-6.5); Neutrophils Percent Auto 61.9 % (43.0-75.0); Platelet Count 178 10^3/uL (150-450); Red Cell Distribution Width 13.1 % (11.0-15.0); White Blood Count 7.8 10^3/uL (4.0-11.0)
[2024-09-18 04:47] LABS: Alanine Aminotransferase 14 U/L (16-63); Albumin Globulin Ratio 0.9; Albumin Level 3.3 g/dL (3.4-5.0); Alkaline Phosphatase 71 U/L (46-116); Anion Gap 11.5; Aspartate Amino Transferase 10 U/L (15-37); BUN Creatinine Ratio 17.8; Bilirubin Total 0.5 mg/dL (0.2-1.0); Calcium 9.1 mg/dL (8.5-10.1); Carbon Dioxide 28.6 mmol/L (21.0-32.0); Chloride 103 mmol/L (98-107); Estimated GFR (African America >60 (>=60 mL/min/1.73m^2); Estimated GFR (Non-African Ame 53 (>=60 mL/min/1.73m^2); Globulin 3.8 g/dL; Glucose 92 mg/dL (74-106); Potassium 4.1 mmol/L (3.5-5.1); Sodium 139 mmol/L (136-145); Total Protein 7.1 g/dL (6.4-8.2)
[2024-09-18 04:49] LABS: Lactate/Lactic Acid 1.5 mmol/L (0.4-2.0); Troponin I High Sensitivity 5.8 pg/mL (4.0-76.1)
[2024-09-18 05:51] LABS: Bilirubin Urine NEGATIVE (NEGATIVE); Blood Urine TRACE-I (NEGATIVE); Clarity Urine CLEAR (CLEAR); Color Urine LT. YELLOW (YELLOW); Glucose Urine UA NEGATIVE (NEGATIVE); Ketones Urine NEGATIVE (NEGATIVE); Leukocyte Esterase Urine NEGATIVE (NEGATIVE); Nitrite Urine NEGATIVE (NEGATIVE); Protein Urine 100 mg/dL (NEG/TRACE); Specific Gravity Urine 1.025 (1.005-1.025); Urobilinogen Urine 0.2 EU/dL (0.2-1.0)
[2024-09-18 06:01] LABS: Bacteria Urine NONE SEEN #/HPF (NONE SEEN); Cast Seen? SEEN #/LPF (NONE SEEN); Crystals Seen? None Seen #/HPF (None Seen); Hyaline Casts Urine RARE; Mucus Urine NONE SEEN (NONE SEEN); RBC Urine NONE SEEN #/HPF (0-2); Squamous Epithelial Cell Urine NONE SEEN #/LPF (NONE/RARE); Urine Culture Indicated NO; WBC Urine 0-2 #/HPF (NONE SEEN)
--- NOTE | 2024-09-18 07:18 | PC.NURSE ---
PT FELL IN BATHROOM RIGHT BEFORE LEAVING WHEN DISCHARGED. SLID ON SIDE OF TOILET -- NO LOC. DAUGHTER WITNESS, NO HEAD INJURY. DOES HAVE AN ABRASION ON BACK, BLEEDING CONTROLLED. THIS RN CLEANED IT UP. THIS RN AND ER DIRECTOR ASSISTED PT UP AND INTO WHEELCHAIR. PT DENIES ANY PAIN AT THIS TIME. BROUGHT TO ROOM TO CHECK VS, WNL. DR RANDLE ASSESSED PT AND WALK TEST WAS COMPLETED. PT SUCCESSFUL WITH WALK TEST, DOES HAVE A WALKER AT HOME. DAUGHTER COMFORTABLE TAKING HIM HOME. ASSISTED INTO CAR. WILL SUBMIT VARIANCE FOR FALL.
== END 2024-09-18 07:25 | disposition home or self-care (01) ==
PROVIDERS: Emergency Provider Emergency Medicine; PCP Family Medicine
DX: Z04.3 Encounter for examination and observation following other accident (principal); I48.91 Unspecified atrial fibrillation; Z95.818 Presence of other cardiac implants and grafts; Z87.891 Personal history of nicotine dependence; Z91.81 History of falling
CPT/HCPCS: 36415; 70450; 71045; 72125; 80053; 81001; 83605; 84484; 85025; 93005; 99285

== ENCOUNTER 2024-10-22 19:32 | Emergency (ER) | payer MEDICARE, OTHER, SELFPAY ==
[2024-10-22 19:37] VITALS: BP 142/113; PULSE 85; TEMP 36.4; O2SAT 93; BMI 26.6
--- OUTSIDE RECORDS SUMMARY | 2024-10-22 19:41 | XMS_ITS | CCD ---
Author Organization [facility] CliniSyut Care Team Providers Care Tire Rebuilder Name Role Phone Cedric Carr Unavailable Mohamud Ruth Unavailable DEO RATUL Unavailable Unavailable CEDRIC CARR Unavailable Unavailable Deo Ratul Unavailable Cedric Carr Primary Care Provider Mohamud Ruth Unavailable Raymark, Ratul Unavailable [phone] Cedric Carr Primary Care Provider Mohamud [...] Primary Care Provider Cedric Carr MD Unavailable [phone] Cedric Carr MD Primary Care Provider Cedric Carr MD Unavailable [phone] Cedric Carr MD Primary Care Provider [phone] Cedric Carr MD Unavailable [phone] CEDRIC CARR Attending Unavailable CEDRIC CARR [...] to adverse reactions to drug 8 Anaphylaxis [facility] (8 sources) Sulfonamides (Antibiotic) Propensity to adverse reactions to drug 6 Anaphylaxis [place], [place] (2 sources) Amino Acids Drug Allergy 0 [place] (2 sources) Lisinopril Drug Allergy 0 Other (See Comments) [facility], [place] (1 source) Amino Acids Drug Allergy [facility] (2 sources) Sulfonamides (Antibiotic) Drug allergy (disorder) 0 [facility] (1 source) SULFOIL; Translations: [SULFOIL] Propensity to adverse reactions to drug (disorder) 3 [facility] (10 sources) Lisinopril Allergy to substance 3 [facility] (10 sources) Sulfonamides (Antibiotic) Drug Allergy 3 [facility] Medications Current Medications Medication Drug Class(es) Dates Sig (Normalized) Sig (Original) acetaminophen 500 mg oral tablet (7 sources) take 1 tablet by mouth every six hours as needed acetaminophen (TYLENOL) 500 MG tablet Take 500 mg by mouth every 6 (six) hours as needed for pain. 0 Active 24 hr ALPRAZolam 1 mg extended release oral tablet (12 sources) Benzodiazepine Start: 04-23-2024 End: 11-16-2024 take [...] 10/10/2023 Active amLODIPine 5 mg oral tablet (18 sources) Dihydropyridine Calcium Channel Geoff Start: 01-24-2024 [...] Start: 04-16-2019 take 1 tablet by david once daily [...] 0 Active take 5 tablets by mo [facility] once daily vitamin D3 (CHOLECALCIFEROL) 400 UNITS [...] 0 Active escitalopram 20 mg oral tablet (12 sources) Serotonin Reuptake Inhibitor Start: 04-23-2024 End: [...] Active fexofenadine hydrochloride 180 mg oral tablet (10 sources) Histamine-1 Receptor Antagonist take 1 tablet [...] Active losartan potassium 50 mg oral tablet (10 sources) Angiotensin 2 Receptor Geoff Start: 01-24-2024 End: 11-16-2024 take 1 tablet by mouth once daily losartan (Cozaar) 50 MG tablet Indications: Benign essential hypertension (CMS/HCC) Take 1 tablet (50 mg) by mouth Daily 90 tablet 1 05/20/2024 11/16/2024 Active memantine hydrochloride 5 mg oral tablet (3 sources) F-hylfnk-M-asparta te Receptor Antagonist Start: 05-02-2023 take 1 [...] nightly 0 Active Multiple Vitamin (Multi-Vitamin) tablet (10 sources) take 1 tablet by mouth in [...] Resolved: 09-03-2019 03-31-2016 Chronic Acute myocardial infarction (10 sources) Acute non-ST segment elevation myocardial infarction; Translations: [Non-ST elevation (NSTEMI) myocardial infarction] Onset: 12-29-2020 05-16-2023 Chronic Anxiety disorders (12 sources) Generalized anxiety disorder; Translations: [Generalized anxiety disorder] Onset: 03-07-2023 03-07-2023 Chronic Cardiac dysrhythmias (20 sources) Paroxysmal atrial fibrillation; Translations: [Chronic atrial fibrillation] Onset: 12-26-2015 01-18-2018 Chronic Coronary atherosclerosis and other heart disease (18 sources) Atherosclerotic heart disease of [place] coronary artery without angina pectoris; Translations: [Old myocardial infarction] Onset: 02-03-2022 Chronic Coronary atherosclerosis and other heart disease (2 sources) Presence of coronary angioplasty implant and graft; Translations: [Presence of coronary angioplasty implant and graft] Onset: 03-24-2023 Episodic Delirium, dementia, and amnestic and other cognitive disorders (20 sources) Vascular dementia without behavioral disturbance; Translations: [Vascular dementia without behavioral disturbance] Onset: 03-07-2023 03-07-2023 Chronic Disorders of lipid metabolism (20 sources) Hyperlipidemia; Translations: [Mixed hyperlipidemia] Onset: 12-26-2015 03-31-2016 Chronic E Codes: Fall (2 sources) Fall; Translations: [Unspecified fall, sequela] 05-20-2024 Episodic Essential hypertension (20 sources) Essential hypertension; Translations: [Essential (primary) hypertension] Onset: 12-26-2015 03-31-2016 Chronic Hypertension with complications and secondary hypertension (18 sources) Hypertensive emergency; Translations: [Hypertensive renal disease] Onset: 03-31-2016 03-31-2016 Chronic Intracranial injury (1 source) Traumatic subdural hemorrhage with loss of consciousness of unspecified duration, initial encounter; Translations: [Traumatic subdural hemorrhage with loss of consciousness of unspecified duration, initial encounter] Onset: 01-25-2018 Episodic Malaise and fatigue (12 sources) Fatigue; Translations: [Chronic fatigue, unspecified] Onset: 03-07-2023 03-07-2023 Chronic Malaise and fatigue (2 sources) Asthenia; Translations: [Weakness] 07-24-2023 Episodic Mood disorders (14 sources) Moderate major depression ; Translations: [Major depressive disorder, single episode, moderate] Onset: 03-07-2023 03-07-2023 Chronic Nutritional deficiencies (4 sources) Vitamin D deficiency; Translations: [Vitamin D deficiency disease] Chronic Open wounds of extremities (2 sources) Laceration of left wrist; Translations: [Laceration without foreign body of left wrist, subsequent encounter] 09-09-2024 Episodic Other aftercare (5 sources) Patient encounter status; Translations: [[facility] (current) use of antithrombotics/antip latelets] Onset: 03-07-2023 03-07-2023 Episodic Other aftercare (2 sources) Surgical follow-up; Translations: [Encounter for removal of sutures] 09-09-2024 Episodic Other and ill-defined heart disease (10 sources) Bilateral enlargement of atria; Translations: [Cardiomegaly] Onset: 03-07-2023 03-07-2023 Chronic Other circulatory disease (2 sources) Presence of other cardiac implants and grafts; Translations: [Presence of other cardiac implants and grafts] Onset: 08-24-2022 Chronic Other circulatory disease (10 sources) Disorder of aorta; 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] Onset: 03-07-2023 03-07-2023 Chronic Other injuries and conditions due to external causes (2 sources) At risk for falls ; Translations: [History of falling] 07-24-2023 Episodic Other lower respiratory disease (10 sources) Pulmonary granuloma; Translations: [Pulmonary fibrosis, unspecified] Onset: 03-07-2023 03-07-2023 Chronic Other non-traumatic joint disorders (2 sources) Pain in left shoulder; Translations: [Pain in joint, shoulder region] 05-20-2024 Episodic Other upper respiratory disease (10 sources) Allergic rhinitis due to pollen; Translations: [Allergic rhinitis due to pollen] Onset: 03-07-2023 03-07-2023 Chronic Spondylosis; intervertebral disc disorders; other back problems (10 sources) Spondylosis; Translations: [Spondylosis, unspecified] Onset: 03-07-2023 03-07-2023 Chronic Thyroid disorders (10 sources) Acquired hypothyroidism; Translations: [Hypothyroidism, unspecified] Onset: [...] (HCC)] Onset: 04-06-2018 04-06-2018 Episodic Adjustment disorders (10 sources) Acute situational disturbance; Translations: [Adjustment disorder, unspecified] Onset: 03-07-2023 Resolved: 05-23-2024 03-07-2023 Chronic Administrative/social admission (10 sources) Sickness in the family; Translations: [Other stressful life events affecting family and household] Onset: 03-07-2023 Resolved: 05-23-2024 03-07-2023 Episodic Cancer of prostate (10 sources) History of malignant neoplasm of prostate; Translations: [Personal history of malignant neoplasm of prostate] Onset: 03-07-2023 03-07-2023 Episodic Epilepsy; convulsions (8 sources) Partial seizure; Translations: [Partial seizures] Onset: 04-02-2016 04-02-2016 Episodic Other aftercare (12 sources) Drug therapy finding; Translations: [Other long filler cigar roller machine (current) drug therapy] Onset: 03-07-2023 03-07-2023 Episodic Other aftercare (12 sources) Polypharmacy ; Translations: [Other long filler cigar roller machine (current) drug therapy] Onset: 03-07-2023 Resolved: 10-17-2023 03-07-2023 Episodic Other aftercare (7 sources) Long-term current use of drug therapy; Translations: [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 (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) use of antithrombotics/ant iplatelets] Onset: 03-07-2023 03-07-2023 Episodic Other hereditary and degenerative nervous system conditions (10 sources) Impaired cognition; Translations: [Mild cognitive impairment, so stated] Onset: 03-07-2023 Resolved: 05-23-2024 03-07-2023 Chronic Other lower respiratory disease (1 source) Other nonspecific abnormal finding of lung field; Translations: [OTH NONSPECIFIC ABN FIND LNG FIELD] Onset: 07-27-2021 Episodic Other nervous system disorders (12 sources) White matter disease; Translations: [White matter disease, unspecified] Onset: 03-07-2023 03-07-2023 Episodic Residual codes; unclassified (8 sources) Creatinine level - finding; Translations: [Creatinine elevation] Onset: 12-26-2015 03-31-2016 Episodic Residual codes; unclassified (10 sources) Amnesia; Translations: [Other amnesia] Onset: 03-07-2023 03-07-2023 Episodic Results Test Name Value Interpretation Reference Range Facility Office Visiton 03-24-2023 Follow-up visit [id number] Keaton Hammond es R Sr. 1940 M Date Provider Department Center 03/24/2023 KILEY HASSAN [facility] No family history on file Level of Service:61464 [place] OFFICE/OUTPATIENT ESTABLISHED LOW MDM 20-29 MIN Reason for Visit and Comments: Follow-up [[id number]] [facility] Office Visiton 08-24-2022 Follow-up visit [id number] Keaton Hammond es R Sr. 1940 M Date Provider Department Center 08/24/2022 [facility] No family history on file Level of Service:65571 [place] OFFICE/OUTPATIENT ESTABLISHED MOD MDM 30-39 MIN Reason for Visit and Comments: Follow-up [[id number]] [facility] CBC AUTO DIFFon 02-03-2022 BASO # 0.1 103/ul Normal 0.0-0.1 [facility] Comment on above: Performed By: #### C BC #### [facility] [address] [address] [address] Kenneth Sepulveda Basophils/100 WBC (Bld) 0.6 % Normal 0.2-2.0 [facility] Comment on above: Performed By: #### C BC #### [facility] [address] [address] [address] Kenneth Sepulveda EO # 0.2 103/ul Normal 0.0-0.7 [facility] Comment on above: Performed By: #### C BC #### [facility] [address] [place] [address] Dr. Kenneth Sepulveda Eosinophils/100 WBC (Bld) 2.1 % Normal 0.9-7.0 [facility] Comment on above: Performed By: #### C BC #### [facility] [address] [place] [address] Dr. Kenneth Sepulveda Erythrocyte distribution width (RBC) [Ratio] 12.4 % Normal 11.0-15.0 [facility] Comment on above: Performed By: #### C BC #### [facility] [address] [place] [address] Dr. Kenneth Sepulveda Hematocrit (Bld) [Volume fraction] 42.4 % Normal 42.0-54.0 [facility] Comment on above: Performed By: #### C BC #### [facility] [address] [place] [address] Dr. Kenneth Sepulveda Hemoglobin (Bld) [Mass/Vol] 14.4 g/dL Normal 14.0-18.0 [facility] Comment on above: Performed By: #### C BC #### [facility] [address] [place] [address] Dr. Kenneth Sepulveda IG # 0.03 10e3/ul Normal 0.00-0.03 [facility] Comment on above: Performed By: #### C BC #### [facility] [address] [place] [address] Dr. Kenneth Sepulveda IG % 0.4 % Normal 0.0-0.5 [facility] Comment on above: Performed By: #### C BC #### [facility] [address] [place] [address] Dr. Kenneth Sepulveda LYMPH # 1.7 103/ul Normal 1.2-3.8 [facility] Comment on above: Performed By: #### C BC #### [facility] [address] [place] [address] Dr. Kenneth Sepulveda Lymphocytes/100 WBC (Bld) 21.8 % Normal 20.5-60.0 [facility] Comment on above: Performed By: #### C BC #### [facility] [address] [place] [address] Dr. Kenneth Sepulveda MANUAL DIFF REQ NO Normal [facility] Comment on above: Performed By: #### C BC #### [facility] [address] [place] [address] Dr. Kenneth Sepulveda MCH (RBC) [Entitic mass] 30.6 pg Normal 25.9-34.0 [facility] Comment on above: Performed By: #### C BC #### [facility] [address] [place] [address] Dr. Kenneth Sepulveda MCHC (RBC) [Mass/Vol] 34.0 g/dL Normal 29.9-35.2 [facility] Comment on above: Performed By: #### C BC #### [facility] [address] [place] [address] Dr. Kenneth Sepulveda MCV (RBC) [Entitic vol] 90.2 fL Normal 80.0-94.0 [facility] Comment on above: Performed By: #### C BC #### [facility] [address] [place] [address] Dr. Kenneth Sepulveda MONO # 0.6 103/ul Normal 0.3-0.8 [facility] Comment on above: Performed By: #### C BC #### [facility] [address] [place] [address] Dr. Kenneth Sepulveda Monocytes/100 WBC (Bld) 7.1 % Normal 1.7-12.0 [facility] Comment on above: Performed By: #### C BC #### [facility] [address] [place] [address] Dr. Kenneth Sepulveda NEUT # 5.3 103/ul Normal 1.4-6.5 [facility] Comment on above: Performed By: #### C BC #### [facility] [address] [place] [address] Dr. Kenneth Sepulveda Neutrophils/100 WBC (Bld) 68.0 % Normal 43.0-75.0 [facility] Comment on above: Performed By: #### C BC #### [facility] [address] [address] [address] Kenneth Sepulveda Platelet mean volume (Bld) [Entitic vol] 9.1 fL Critically low 9.5-13.5 [facility] Comment on above: Performed By: #### C BC #### [facility] [address] [address] [address] Kenneht Sepulveda PLT 197 103/ul Normal 150-450 [facility] Comment on above: Performed By: #### C BC #### [facility] [address] [address] [address] Kenneth Sepulveda RBC 4.70 106/ul Normal 4.70-6.10 [facility] Comment on above: Performed By: #### C BC #### [facility] [address] [place] [address] Dr. Kenneth Sepulveda WBC 7.8 103/ul Normal 4.0-11.0 [facility] Comment on above: Performed By: #### C BC #### [facility] [address] [place] [address] Dr. Kenneth Sepulveda LIPID PROFILEon 02-03-2022 CHOL-HDL RATIO NORM SEE BELOW Normal [facility] Comment on above: Result Comment: 3.3 - 4.4 LOW RISK 4.4 - 7.1 AVERAGE RISK 7.1 - 11.0 MODERATE RISK >11.0 HIGH RISK Performed By: #### L IPID, CMP #### [facility] [address] [place] [address] Dr. Kenneth Sepulveda Cholesterol [Mass/Vol] 116 mg/dL Normal <=200 [facility] Comment on above: Performed By: #### L IPID, CMP #### [facility] [address] [place] [address] Dr. Kenneth Sepulveda Cholesterol in HDL [Mass/Vol] 40 mg/dL Normal 40-60 [facility] Comment on above: Performed By: #### L IPID, CMP #### [facility] [address] [place] [address] Dr. Kenneth Sepulveda Cholesterol in LDL [Mass/Vol] 57.2 mg/dL Normal [facility] Comment on above: Performed By: #### L IPID, CMP #### [facility] [address] [address] [address] Kenneth Sepulveda Cholesterol.total/Ch olesterol in HDL [Mass ratio] 2.9 {ratio} Normal [facility] Comment on above: Performed By: #### L IPID, CMP #### [facility] [address] [address] [address] Kenneth Sepulveda HDL NORMAL > or = 60 mg/dl - LO W CARDIOVASCULAR RISK <40 mg/dl - HIGH CARDIOVASCULAR RISK Normal [facility] Comment on above: Performed By: #### L IPID, CMP #### [facility] [address] [address] [address] Kenneth Sepulveda LDL CALC NORMAL SEE BELOW Normal [facility] Comment on above: Result Comment: <100 mg/dl OPTIMAL 100 - 129 mg/dl NEAR OR ABOVE OPTIMAL 130 - 159 mg/dl BORDERLINE HIGH 160 - 189 mg/dl HIGH >190 mg/dl VERY HIGH Performed By: #### L IPID, CMP #### [facility] [address] [address] [address] Kenneth Sepulveda Triglyceride [Mass/Vol] 94 mg/dL Normal <=150 [facility] Comment on above: Performed By: #### L IPID, CMP #### [facility] [address] [place] [address] Dr. Kenneth Sepulveda VLDL CALC 18.8 mg/dL Normal [facility] Comment on above: Performed By: #### L IPID, CMP #### [facility] [address] [address] [address] Kenneth Sepulveda PROF 14(COMP METB)on 022 Albumin [Mass/Vol] 3.6 g/dL Normal 3.4-5.[address] [facility] Comment on above: Performed By: #### L IPID, CMP #### [facility] [address] [place] [address] Dr. Kenneth Sepulveda Albumin/Globulin [Mass ratio] 1.1 {ratio} Normal [facility] Comment on above: Performed By: #### L IPID, CMP #### [facility] [address] [address] [address] Kenneth Sepulveda ALP [Catalytic activity/Vol] 88 U/L Normal 46-116 [facility] Comment on above: Performed By: #### L IPID, CMP #### [facility] [address] [address] [address] Kenneth Sepulveda ALT [Catalytic activity/Vol] 40 U/L Normal 16-63 [facility] Comment on above: Performed By: #### L IPID, CMP #### [facility] [address] [address] [address] Kenneth Sepulveda Anion gap [Moles/Vol] 14.3 mmol/L Normal [facility] Comment on above: Performed By: #### L IPID, CMP #### [facility] [address] [address] [address] Kenneth Sepulveda AST [Catalytic activity/Vol] 25 U/L Normal 15-37 [facility] Comment on above: Performed By: #### L IPID, CMP #### [facility] [address] [address] [address] Kenneth Sepulveda Bilirubin [Mass/Vol] 1.0 mg/dL Normal 0.2-1.0 [facility] Comment on above: Performed By: #### L IPID, CMP #### [facility] [address] [address] [address] Kenneth Sepulveda Calcium [Mass/Vol] 8.9 mg/dL Normal 8.5-10.[address] [facility] Comment on above: Performed By: #### L IPID, CMP #### [facility] [address] [address] [address] Kenneth Sepulveda Chloride [Moles/Vol] 98 mmol/L Normal 98-107 [facility] Comment on above: Performed By: #### L IPID, CMP #### [facility] [address] [address] [address] Kenneth Sepulveda CO2 [Moles/Vol] 26.6 mmol/L Normal 21.0-32.0 [facility] Comment on above: Performed By: #### L IPID, CMP #### [facility] [address] [address] [address] Kenneth Sepulveda Creatinine [Mass/Vol] 1.17 mg/dL Normal 0.70-1.30 [facility] Comment on above: Performed By: #### L IPID, CMP #### [facility] [address] [address] [address] Kenneth Sepulveda EGFR-AF UZBEK >60 Normal >=60 [facility] Comment on above: Performed By: #### L IPID, CMP #### [facility] [address] [address] [address] Kenneth Sepulveda EGFR-NON AF UZBEK 60 mL/min/1.73m2 Normal >=60 [facility] Comment on above: Performed By: #### L IPID, CMP #### [facility] [address] [address] [address] Kenneth Sepulveda Globulin (S) [Mass/Vol] 3.2 g/dL Normal [facility] Comment on above: Performed By: #### L IPID, CMP #### [facility] [address] [address] [address] Kenneth Sepulveda Glucose [Mass/Vol] 90 mg/dL Normal 74-[address] [facility] Comment on above: Performed By: #### L IPID, CMP #### [facility] [address] [address] [address] Kenneth Sepulveda Potassium [Moles/Vol] 3.9 mmol/L Normal 3.5-5.1 [facility] Comment on above: Performed By: #### L IPID, CMP #### [facility] [address] [address] [address] Kenneth Sepulveda Protein [Mass/Vol] 6.8 g/dL Normal 6.4-8.2 [facility] Comment on above: Performed By: #### L IPID, CMP #### [facility] [address] [address] [address] Kenneth Sepulveda Sodium [Moles/Vol] 135 mmol/L Critically low 136-145 [facility] Comment on above: Performed By: #### L IPID, CMP #### [facility] [address] [address] [address] Kenneth Sepulveda Urea nitrogen [Mass/Vol] 14.0 mg/dL Normal 7.0-18.0 [facility] Comment on above: Performed By: #### L IPID, CMP #### [facility] [address] [address] [address] Kenneth Sepulveda Urea nitrogen/Creatinine [Mass ratio] 12.0 mg/mg Normal [facility] Comment on above: Performed By: #### L IPID, CMP #### [facility] [address] [address] [address] Kenneth Sepulveda XR CHEST 2 Von [...] BOY ADAME Date: 2021-07-22 13:26 Normal [facility] CBC AUTO DIFFon 07-21-2021 BASO # 0.0 103/ul Normal 0.0-0.1 [facility] Comment on above: Performed By: #### C BC #### [facility] [address] [address] [address] Kenneth Sepulveda Basophils/100 WBC (Bld) 0.5 % Normal 0.2-2.0 [facility] Comment on above: Performed By: #### C BC #### [facility] [address] [place] [address] Dr. Kenneth Sepulveda EO # 0.1 103/ul Normal 0.0-0.7 [facility] Comment on above: Performed By: #### C BC #### [facility] [address] [address] [address] Kenneth Sepulveda Eosinophils/100 WBC (Bld) 1.3 % Normal 0.9-7.0 [facility] Comment on above: Performed By: #### C BC #### [facility] [address] [place] [address] Dr. Kenneth Sepulveda Erythrocyte distribution width (RBC) [Ratio] 13.2 % Normal 11.0-15.0 [facility] Comment on above: Performed By: #### C BC #### [facility] [address] [place] [address] Dr. Kenneth Sepulveda Hematocrit (Bld) [Volume fraction] 43.5 % Normal 42.0-54.0 [facility] Comment on above: Performed By: #### C BC #### [facility] [address] [place] [address] Dr. Kenneth Sepulveda Hemoglobin (Bld) [Mass/Vol] 14.5 g/dL Normal 14.0-18.0 [facility] Comment on above: Performed By: #### C BC #### [facility] [address] [place] [address] Dr. Kenneth Sepulveda IG # 0.03 10e3/ul Normal 0.00-0.03 [facility] Comment on above: Performed By: #### C BC #### [facility] [address] [place] [address] Dr. Kenneth Sepulveda IG % 0.4 % Normal 0.0-0.5 [facility] Comment on above: Performed By: #### C BC #### [facility] [address] [place] [address] Dr. Kenneth Sepulveda LYMPH # 2.2 103/ul Normal 1.2-3.8 [facility] Comment on above: Performed By: #### C BC #### [facility] [address] [place] [address] Dr. Kenneth Sepulveda Lymphocytes/100 WBC (Bld) 27.7 % Normal 20.5-60.0 [facility] Comment on above: Performed By: #### C BC #### [facility] [address] [place] [address] Dr. Kenneth Sepulveda MANUAL DIFF REQ NO Normal [facility] Comment on above: Performed By: #### C BC #### [facility] [address] [place] [address] Dr. Kenneth Sepulveda MCH (RBC) [Entitic mass] 30.4 pg Normal 25.9-34.0 [facility] Comment on above: Performed By: #### C BC #### [facility] Laboratory [address] [place] [address] Dr. Kenneth Sepulveda MCHC (RBC) [Mass/Vol] 33.3 g/dL Normal 29.9-35.2 [facility] Comment on above: Performed By: #### C BC #### [facility] [address] [place] [address] Dr. Kenneth Sepulveda MCV (RBC) [Entitic vol] 91.2 fL Normal 80.0-94.0 [facility] Comment on above: Performed By: #### C BC #### [facility] [address] [place] [address] Dr. Kenneth Sepulveda MONO # 0.5 103/ul Normal 0.3-0.8 [facility] Comment on above: Performed By: #### C BC #### [facility] [address] [place] [address] Dr. Kenneth Sepulveda Monocytes/100 WBC (Bld) 6.6 % Normal 1.7-12.0 [facility] Comment on above: Performed By: #### C BC #### [facility] [address] [place] [address] Dr. Kenneth Sepulveda NEUT # 4.9 103/ul Normal 1.4-6.5 [facility] Comment on above: Performed By: #### C BC #### [facility] [address] [place] [address] Dr. Kenneth Sepulveda Neutrophils/100 WBC (Bld) 63.5 % Normal 43.0-75.0 [facility] Comment on above: Performed By: #### C BC #### [facility] [address] [place] [address] Dr. Kenneth Sepulveda Platelet mean volume (Bld) [Entitic vol] 8.7 fL Critically low 9.5-13.5 [facility] Comment on above: Performed By: #### C BC #### [facility] [address] [place] [address] Dr. Kenneth Sepulveda PLT 219 103/ul Normal 150-450 [facility] Comment on above: Performed By: #### C BC #### [facility] [address] [place] [address] Dr. Kenneth Sepulveda RBC 4.77 106/ul Normal 4.70-6.10 [facility] Comment on above: Performed By: #### C BC #### [facility] [address] [place] [address] Dr. Kenneth Sepulveda WBC 7.8 103/ul Normal 4.0-11.0 [facility] Comment on above: Performed By: #### C BC #### [facility] [address] [place] [address] Dr. Kenneth Sepulveda LIPID PROFILEon 07-21-2021 CHOL-HDL RATIO NORM SEE BELOW Normal [facility] Comment on above: Result Comment: 3.3 - 4.4 LOW RISK 4.4 - 7.1 AVERAGE RISK 7.1 - 11.0 MODERATE RISK >11.0 HIGH RISK Performed By: #### C MP, LIPID #### [facility] [address] [place] [address] Dr. Kenneth Sepulveda Cholesterol [Mass/Vol] 151 mg/dL Normal <=200 [facility] Comment on above: Performed By: #### C MP, LIPID #### [facility] [address] [place] [address] Dr. Kenneth Sepulveda Cholesterol in HDL [Mass/Vol] 45 mg/dL Normal [facility] Comment on above: Performed By: #### C MP, LIPID #### [facility] [address] [place] [address] Dr. Kenneth Sepulveda Cholesterol in LDL [Mass/Vol] 88.4 mg/dL Normal [facility] Comment on above: Performed By: #### C MP, LIPID #### [facility] [address] [place] [address] Dr. Kenneth Sepulveda Cholesterol.total/Ch olesterol in HDL [Mass ratio] 3.4 {ratio} Normal [facility] Comment on above: Performed By: #### C MP, LIPID #### [facility] [address] [address] [address] Kenneth Sepulveda HDL NORMAL > or = 60 mg/dl - LO W CARDIOVASCULAR RISK <40 mg/dl - HIGH CARDIOVASCULAR RISK Normal [facility] Comment on above: Performed By: #### C MP, LIPID #### [facility] [address] [address] [address] Kenneth Sepulveda LDL CALC NORMAL SEE BELOW Normal [facility] Comment on above: Result Comment: <100 mg/dl OPTIMAL 100 - 129 mg/dl NEAR OR ABOVE OPTIMAL 130 - 159 mg/dl BORDERLINE HIGH 160 - 189 mg/dl HIGH >190 mg/dl VERY HIGH Performed By: #### C MP, LIPID #### [facility] [address] [place] [address] Dr. Kenneth Sepulveda Triglyceride [Mass/Vol] 88 mg/dL Normal <=150 [facility] Comment on above: Performed By: #### C MP, LIPID #### [facility] [address] [place] [address] Dr. Kenneth Sepulveda VLDL CALC 17.6 mg/dL Normal [facility] Comment on above: Performed By: #### C MP, LIPID #### [facility] [address] [place] [address] Dr. Kenneth Sepulveda PROF 14(COMP METB)on 022 Albumin [Mass/Vol] 3.7 g/dL Normal 3.5-5.[address] [facility] Comment on above: Performed By: #### C MP, LIPID #### [facility] [address] [place] [address] Dr. Kenneth Sepulveda Albumin/Globulin [Mass ratio] 1.1 {ratio} Normal [facility] Comment on above: Performed By: #### C MP, LIPID #### [facility] [address] [address] [address] Kenneth Sepulveda ALP [Catalytic activity/Vol] 57 U/L Normal 38-126 [facility] Comment on above: Performed By: #### C MP, LIPID #### [facility] [address] [address] [address] Kenneth Sepulveda ALT [Catalytic activity/Vol] 20 U/L Critically low 21-72 [facility] Comment on above: Performed By: #### C MP, LIPID #### [facility] [address] [address] [address] Kenneth Sepulveda Anion gap [Moles/Vol] 9.8 mmol/L Normal [facility] Comment on above: Performed By: #### C MP, LIPID #### [facility] [address] [address] [address] Kenneth Sepulveda AST [Catalytic activity/Vol] 15 U/L Critically low 17-59 [facility] Comment on above: Performed By: #### C MP, LIPID #### [facility] [address] [address] [address] Kenneth Sepulveda Bilirubin [Mass/Vol] 0.8 mg/dL Normal 0.2-1.3 [facility] Comment on above: Performed By: #### C MP, LIPID #### [facility] [address] [address] [address] Kenneth Sepulveda Calcium [Mass/Vol] 9.5 mg/dL Normal 8.4-10.[address] [facility] Comment on above: Performed By: #### C MP, LIPID #### [facility] [address] [address] [address] Kenneth Sepulveda Chloride [Moles/Vol] 103 mmol/L Normal 98-107 [facility] Comment on above: Performed By: #### C MP, LIPID #### [facility] [address] [address] [address] Kenneth Sepulveda CO2 [Moles/Vol] 30.0 mmol/L Normal 22.0-30.0 [facility] Comment on above: Performed By: #### C MP, LIPID #### [facility] [address] [address] [address] Kenneth Sepulveda Creatinine [Mass/Vol] 1.45 mg/dL Critically high 0.66-1.25 [facility] Comment on above: Performed By: #### C MP, LIPID #### [facility] [address] [address] [address] Kenneth Sepulveda EGFR-AF UZBEK 56 mL/min/1.73m2 Critically low >=60 [facility] Comment on above: Performed By: #### C MP, LIPID #### [facility] [address] [address] [address] Kenneth Sepulveda EGFR-NON AF UZBEK 47 mL/min/1.73m2 Critically low >=60 [facility] Comment on above: Performed By: #### C MP, LIPID #### [facility] [address] [place] [address] Dr. Kenneth Sepulveda Globulin (S) [Mass/Vol] 3.4 g/dL Normal [facility] Comment on above: Performed By: #### C MP, LIPID #### [facility] [address] [place] [address] Dr. Kenneth Sepulveda Glucose [Mass/Vol] 83 mg/dL Normal 74-[address] [facility] Comment on above: Performed By: #### C MP, LIPID #### [facility] [address] [place] [address] Dr. Kenneth Sepulveda Potassium [Moles/Vol] 3.8 mmol/L Normal 3.4-5.0 [facility] Comment on above: Performed By: #### C MP, LIPID #### [facility] [address] [place] [address] Dr. Kenneth Sepulveda Protein [Mass/Vol] 7.1 g/dL Normal 6.1-8.2 The [facility] Comment on above: Performed By: #### C MP, LIPID #### [facility] [address] [place] [address] Dr. Kenneth Sepulveda Sodium [Moles/Vol] 139 mmol/L Normal 137-[address] [facility] Comment on above: Performed By: #### C MP, LIPID #### [facility] [address] [place] [address] Dr. Kenneth Sepulveda Urea nitrogen [Mass/Vol] 26.0 mg/dL Critically high 9.0-20.0 [facility] Comment on above: Performed By: #### C MP, LIPID #### [facility] [address] [place], [place] [address] Dr. Kenneth Sepulveda Urea nitrogen/Creatinine [Mass ratio] 17.9 mg/mg Normal [facility] Comment on above: Performed By: #### C MP, LIPID #### [facility] [address] [place], [place] [address] Dr. Kenneth Sepulveda BASIC METABOLIC PANELon 05- Calcium [Mass/Vol] 9.1 mg/dL Normal 8.6-10.3 [facility] Comment on above: Order Comment: No: D o not add to previous draw Performed By: #### 3 0477, 47078 #### [facility] [address] [place] [address], [place] Chloride [Moles/Vol] 100 mmol/L Normal 98-107 [facility] Comment on above: Order Comment: No: D o not add to previous draw Performed By: #### 3 7, 86816 #### [facility] [address] [place] [address], [place] CO2 [Moles/Vol] 25 mmol/L Normal 21-31 [facility] Comment on above: Order Comment: No: D o not add to previous draw Performed By: #### 3 7, 76800 #### [facility] [address] [place] [address], [place] Creatinine [Mass/Vol] 1.45 mg/dL High 0.70-1.30 [facility] Comment on above: Order Comment: No: D o not add to previous draw Performed By: #### 3 0477, 01262 #### [facility] [address] [place] [address], [place] eGFR- 57 ml/min/1.73sq m Abnormal >60 [facility] Comment on above: Order Comment: No: D o not add to previous draw Result Comment: Calc ulation may not be valid for patients over 70 years Performed By: #### 3 7, 38629 #### [facility] [address] [place] [address], [place] eGFR- non- 47 ml/min/1.73sq m Abnormal >60 [facility] Comment on above: Order Comment: No: D o not add to previous draw Result Comment: Calc ulation may not be valid for patients over 70 years Performed By: #### 3 476, 50791 #### [facility] [address] [place] [address], [place] Glucose [Mass/Vol] 93 mg/dL Normal 70-100 [facility] Comment on above: Order Comment: No: D o not add to previous draw Performed By: #### 3 476, 70575 #### [facility] [address] [place] [address], [place] Potassium [Moles/Vol] 4.1 mmol/L Normal 3.5-5.1 [facility] Comment on above: Order Comment: No: D o not add to previous draw Performed By: #### 3 476, 31222 #### [facility] [address] [place] [address], [place] Sodium [Moles/Vol] 132 mmol/L Low 136-145 [facility] Comment on above: Order Comment: No: D o not add to previous draw Performed By: #### 3 7, 05158 #### [facility] [address] [place] [address], [place] Urea nitrogen [Mass/Vol] 27 mg/dL High 7-25 [facility] Comment on above: Order Comment: No: D o not add to previous draw Performed By: #### 3 7, 67895 #### [facility] [address] [place] [address], [place] CBC COMPLETE BLOOD COUNTon 0 11-03-2020 Erythrocyte distribution width (RBC) [Ratio] 12.9 % Normal 11.5-15.0 [facility] Comment on above: Order Comment: No: D o not add to previous draw Performed By: #### 8 5123 #### [facility] [address] [place] [address], [facility] Hematocrit (Bld) [Volume fraction] 39.8 % Normal 39.0-50.0 [facility] Comment on above: Order Comment: No: D o not add to previous draw Performed By: #### 8 5123 #### [facility] [address] [place] [address], [facility] Hemoglobin (Bld) [Mass/Vol] 13.3 g/dL Normal 13.0-17.0 [facility] Comment on above: Order Comment: No: D o not add to previous draw Performed By: #### 8 5123 #### [facility] [address] [place] [address], [facility] MCH (RBC) [Entitic mass] 29.8 pg Normal 27.0-33.0 [facility] Comment on above: Order Comment: No: D o not add to previous draw Performed By: #### 8 5123 #### [facility] [address] [place] [address], [facility] MCHC (RBC) [Mass/Vol] 33.4 g/dL Normal 32.0-35.0 [facility] Comment on above: Order Comment: No: D o not add to previous draw Performed By: #### 8 5123 #### [facility] [address] [place] [address], [place] MCV (RBC) [Entitic vol] 89.0 fL Normal 82.0-98.0 [facility] Comment on above: Order Comment: No: D o not add to previous draw Performed By: #### 8 5123 #### [facility] [address] [place] [address], [place] Nucleated RBC/100 WBC (Bld) [Ratio] 0 % Normal 0-0 [facility] Comment on above: Order Comment: No: D o not add to previous draw Performed By: #### 8 5123 #### [facility] [address] [place] [address], [facility] PLAT CNT 226 10*3/uL Normal 150-400 [facility] Comment on above: Order Comment: No: D o not add to previous draw Performed By: #### 8 5123 #### [facility] [address] [place] [address], [facility] RBC (Bld) [#/Vol] 4.47 10*6/uL Normal 4.20-5.[address] [facility] Comment on above: Order Comment: No: D o not add to previous draw Performed By: #### 8 5123 #### [facility] [address] [place] [address], [facility] WBC (Bld) [#/Vol] 9.70 10*3/uL Normal 4.00-10.[address] [facility] Comment on above: Order Comment: No: D o not add to previous draw Performed By: #### 8 5123 #### [facility] [address] Cardiovascular Lab Reporton 11-03-2020 Cardiovascular Lab Report [facility] Patient Name: [facility] Siddharth Bryan MR #: [id number] Department of Physician: Julieta Galvan MBienvenido Division of Service Date: 11/02/2020 Cardiology Birthdate: 1940 Adult Cardiovascular Room #: 3AB [id number] [address] Cardiovascular Laboratory Report CLINICAL PRESENTATION: The patient [...] High-intensity statin therapy. 5. Outpatient followup with [facility]. 6. Referral to cardiac rehabilitation. PROCEDURES: [...] infiltrated over the right radial artery. A 6-Chadian Terumo Glidesheath slender was placed in right radial artery. The radial anti-vasospasm cocktail, nitroglycerin 200 mcg and verapamil 2.5 mg were administered through the sheath. All catheter exchanges were made over the Magic Torque guidewire. A 6-Chadian JR5 used to engage the right coronary artery. A 6-Chadian JL3.5 was used to engage the left main coronary artery. Coronary angiograms performed in multiple orthogonal views using hand injection of contrast. At this time, it was apparent that the mid LAD had 80% stenosis. I elected to proceed with PCI. Heparin anticoagulation was used for this procedure. ACT was maintained greater than 200 seconds. A Total Prestigetronic EBU 4.0 guide was engaged in left [...] Partida M.D. Date Trans: 11/02/2020 10:36 P/chandler [id number] cc: Cedric Carr M.D. [address] [place] [id number] Braeden Schaefer M.D. [address] [place] [address] Normal [facility] BASIC METABOLIC PANELon 05-2 Calcium [Mass/Vol] 9.2 mg/dL Normal 8.6-10.3 [facility] Comment on above: Order Comment: No: D o not add to previous draw Performed By: #### 0 0071, 74551, 75668 #### [facility] [address] [place] [address], [place] Chloride [Moles/Vol] 102 mmol/L Normal 98-107 [facility] Comment on above: Order Comment: No: D o not add to previous draw Performed By: #### 0 0071, 91666, 09300 #### [facility] [address] [place] [address], [place] CO2 [Moles/Vol] 24 mmol/L Normal 21-31 [facility] Comment on above: Order Comment: No: D o not add to previous draw Performed By: #### 0 0071, 31048, 49531 #### [facility] [address] [place] [address], [place] Creatinine [Mass/Vol] 1.44 mg/dL High 0.70-1.30 [facility] Comment on above: Order Comment: No: D o not add to previous draw Performed By: #### 0 0071, 65147, 36421 #### [facility] [address] [place] [address], [facility] eGFR- 57 ml/min/1.73sq m Abnormal >60 [facility] Comment on above: Order Comment: No: D o not add to previous draw Result Comment: Calc ulation may not be valid for patients over 70 years Performed By: #### 0 0071, 42874, 60036 #### [facility] [address] [place] [address], [place] eGFR- non- 47 ml/min/1.73sq m Abnormal >60 [facility] Comment on above: Order Comment: No: D o not add to previous draw Result Comment: Calc ulation may not be valid for patients over 70 years Performed By: #### 0 0071, 56789, 46231 #### [facility] [address] [place] [address], [place] Glucose [Mass/Vol] 90 mg/dL Normal 70-100 [facility] Comment on above: Order Comment: No: D o not add to previous draw Performed By: #### 0 0071, 43062, 00387 #### [facility] [address] [place] [address], [place] Potassium [Moles/Vol] 3.4 mmol/L Low 3.5-5.1 [facility] Comment on above: Order Comment: No: D o not add to previous draw Performed By: #### 0 0071, 69583, 06188 #### [facility] [address] [place] [address], [place] Sodium [Moles/Vol] 136 mmol/L Normal 136-145 [facility] Comment on above: Order Comment: No: D o not add to previous draw Performed By: #### 0 0071, 83807, 05144 #### [facility] [address] [place] [address], [place] Urea nitrogen [Mass/Vol] 21 mg/dL Normal 7-25 [facility] Comment on above: Order Comment: No: D o not add to previous draw Performed By: #### 0 0071, 83270, 59610 #### [facility] [address] [place] [address], [place] CBC COMPLETE BLOOD COUNTon 0 - Erythrocyte distribution width (RBC) [Ratio] 13.1 % Normal 11.5-15.0 [facility] Comment on above: Order Comment: No: D o not add to previous draw Performed By: #### 8 5123 #### [facility] [address] [place] [address], [facility] Hematocrit (Bld) [Volume fraction] 40.9 % Normal 39.0-50.0 [facility] Comment on above: Order Comment: No: D o not add to previous draw Performed By: #### 8 5123 #### [facility] [address] [place] [address], [facility] Hemoglobin (Bld) [Mass/Vol] 13.6 g/dL Normal 13.0-17.0 [facility] Comment on above: Order Comment: No: D o not add to previous draw Performed By: #### 8 5123 #### [facility] [address] [place] [id number], [facility] MCH (RBC) [Entitic mass] 29.8 pg Normal 27.0-33.0 [facility] Comment on above: Order Comment: No: D o not add to previous draw Performed By: #### 8 5123 #### [facility] [address] [place] [id number], [facility] MCHC (RBC) [Mass/Vol] 33.3 g/dL Normal 32.0-35.0 [facility] Comment on above: Order Comment: No: D o not add to previous draw Performed By: #### 8 5123 #### [facility] [address] [place] [address], [facility] MCV (RBC) [Entitic vol] 89.7 fL Normal 82.0-98.0 [facility] Comment on above: Order Comment: No: D o not add to previous draw Performed By: #### 8 5123 #### [facility] [address] [place] [id number], [facility] Nucleated RBC/100 WBC (Bld) [Ratio] 0 % Normal 0-0 [facility] Comment on above: Order Comment: No: D o not add to previous draw Performed By: #### 8 5123 #### [facility] [address] [place] [address], [facility] PLAT CNT 217 10*3/uL Normal 150-400 [facility] Comment on above: Order Comment: No: D o not add to previous draw Performed By: #### 8 5123 #### [facility] [address] [place] [address], [facility] RBC (Bld) [#/Vol] 4.56 10*6/uL Normal 4.20-5.[address] [facility] Comment on above: Order Comment: No: D o not add to previous draw Performed By: #### 8 5123 #### [facility] [address] [place] [address], [facility] WBC (Bld) [#/Vol] 7.38 10*3/uL Normal 4.00-10.[address] [facility] Comment on above: Order Comment: No: D o not add to previous draw Performed By: #### 8 5123 #### [facility] [address] [facility] MAGNESIUM BLOODon 11-02-2020 Magnesium [Mass/Vol] 1.6 mg/dL Low 1.9-2.7 [facility] Comment on above: Order Comment: No: D o not add to previous draw Performed By: #### 0 0071, 21370, 18350 #### [facility] [address] [facility] POC GLUCOSE LABon 11-02-2020 Glucose [Mass/Vol] 92 mg/dL Normal 70-100 [facility] Comment on above: Performed By: #### 8 5123 #### [facility] [address] [place] [address], [facility] TROPONIN-Ion 11-02-2020 Troponin I.cardiac [Mass/Vol] 0.21 ng/mL Critically high 0.00-0.04 [facility] Comment on above: Order Comment: No: D o not add to previous draw Result Comment: M-WI EVIOUS CRITICAL RESULT REFERENCE RANGES: 0.00 - 0.04 ng/ml NORMAL 0.05 - 0.50 ng/ml INDETERMINATE > 0.50 ng/ml CONSISTENT WITH AN M.I. Performed By: #### 0 0071, 21073, 26516 #### [facility] [address] UFH HEPARIN ASSAYon 11-03-19 UNFRACTIONATED HEPARIN 0.91 IU/mL Critically high 0.30-0.70 [facility] Comment on above: Result Comment: [place] roxaban and Apixaban will interfere with the anti Xa assay used to monitor UFH and LMWH. Results called. Accurately read back by Stephanie Moore RN at 1217 Performed By: #### 3 1522, 91819, 17834, 29005 #### [facility] [address] [facility] UNFRACTIONATED HEPARIN 0.75 IU/mL High 0.30-0.70 [facility] Comment on above: Result Comment: [place] roxaban and Apixaban will interfere with the anti Xa assay used to monitor UFH and LMWH. Performed By: #### 8 5123 #### [facility] [address] [facility] APTTon 11-01-2020 aPTT Coag (Bld) [Time] 28.5 s Normal 25.0-35.0 [facility] [...] THIS PURPOSE. Performed By: #### 3 0477, 40913 #### [facility] [address] [place] [address], [facility] BASIC METABOLIC PANELon 10-11 Calcium [Mass/Vol] 9.5 mg/dL Normal 8.6-10.3 [facility] Comment on above: Order Comment: No: D o not add to previous draw Performed By: #### 3 7, 10158 #### [facility] [address] [place] [address], [place] Chloride [Moles/Vol] 102 mmol/L Normal 98-107 [facility] Comment on above: Order Comment: No: D o not add to previous draw Performed By: #### 3 476, 64110 #### [facility] [address] [place] [address], [place] CO2 [Moles/Vol] 27 mmol/L Normal 21-31 [facility] Comment on above: Order Comment: No: D o not add to previous draw Performed By: #### 3 476, 53187 #### [facility] [address] [place] [address], [facility] Creatinine [Mass/Vol] 1.39 mg/dL High 0.70-1.30 [facility] Comment on above: Order Comment: No: D o not add to previous draw Performed By: #### 3 476, 39258 #### [facility] [address] [place] [address], [facility] eGFR- 59 ml/min/1.73sq m Abnormal >60 [facility] Comment on above: Order Comment: No: D o not add to previous draw Result Comment: Calc ulation may not be valid for patients over 70 years Performed By: #### 3 7, 47737 #### [facility] [address] [place] [address], [facility] eGFR- non- 49 ml/min/1.73sq m Abnormal >60 [facility] Comment on above: Order Comment: No: D o not add to previous draw Result Comment: Calc ulation may not be valid for patients over 70 years Performed By: #### 3 476, 71612 #### [facility] [address] [place] [address], [place] Glucose [Mass/Vol] 93 mg/dL Normal 70-100 [facility] Comment on above: Order Comment: No: D o not add to previous draw Performed By: #### 3 0477, 60563 #### [facility] [address] [place] [address], [place] Potassium [Moles/Vol] 3.8 mmol/L Normal 3.5-5.1 [facility] Comment on above: Order Comment: No: D o not add to previous draw Performed By: #### 3 0477, 40168 #### [facility] [address] [place] [address], [place] Sodium [Moles/Vol] 138 mmol/L Normal 136-145 [facility] Comment on above: Order Comment: No: D o not add to previous draw Performed By: #### 3 0477, 86079 #### [facility] [address] [place] [address], [place] Urea nitrogen [Mass/Vol] 20 mg/dL Normal 7-25 [facility] Comment on above: Order Comment: No: D o not add to previous draw Performed By: #### 3 0477, 91527 #### [facility] [address] [place] [address], [place] CBC COMPLETE BLOOD COUNTon - Erythrocyte distribution width (RBC) [Ratio] 12.9 % Normal 11.5-15.0 [facility] Comment on above: Order Comment: No: D o not add to previous draw Performed By: #### 8 5123 #### [facility] [address] [place] [address], [place] Hematocrit (Bld) [Volume fraction] 41.9 % Normal 39.0-50.0 [facility] Comment on above: Order Comment: No: D o not add to previous draw Performed By: #### 8 5123 #### [facility] [address] [place] [address], [facility] Hemoglobin (Bld) [Mass/Vol] 13.8 g/dL Normal 13.0-17.0 [facility] Comment on above: Order Comment: No: D o not add to previous draw Performed By: #### 8 5123 #### [facility] [address] [place] [address], [facility] MCH (RBC) [Entitic mass] 30.0 pg Normal 27.0-33.0 [facility] Comment on above: Order Comment: No: D o not add to previous draw Performed By: #### 8 5123 #### [facility] [address] MCHC (RBC) [Mass/Vol] 32.9 g/dL Normal 32.0-35.0 [facility] Comment on above: Order Comment: No: D o not add to previous draw Performed By: #### 8 5123 #### [facility] [address] [place] [address], [facility] MCV (RBC) [Entitic vol] 91.1 fL Normal 82.0-98.0 [facility] Comment on above: Order Comment: No: D o not add to previous draw Performed By: #### 8 5123 #### [facility] [address] [facility] [place] [address], [facility] Nucleated RBC/100 WBC (Bld) [Ratio] 0 % Normal 0-0 [facility] Comment on above: Order Comment: No: D o not add to previous draw Performed By: #### 8 5123 #### [facility] [address] [facility] [place] [address], [facility] PLAT CNT 224 10*3/uL Normal 150-400 [facility] Comment on above: Order Comment: No: D o not add to previous draw Performed By: #### 8 5123 #### [facility] [address] [place] [address], [facility] RBC (Bld) [#/Vol] 4.60 10*6/uL Normal 4.20-5.[address] [facility] Comment on above: Order Comment: No: D o not add to previous draw Performed By: #### 8 5123 #### [facility] [address] [place] [address], [facility] WBC (Bld) [#/Vol] 8.65 10*3/uL Normal 4.00-10.[address] [facility] Comment on above: Order Comment: No: D o not add to previous draw Performed By: #### 8 5123 #### [facility] [address] [place] [address], [facility] FREE T3on 11-01-2020 Free T3 [Mass/Vol] 2.8 pg/mL Normal 2.5-3.9 [facility] Comment on above: Order Comment: Yes: Add to Previous draw if able Performed By: #### 3 0477, 51329 #### [facility] [address] [place] [address], [facility] FREE T4on 11-01-2020 Free T4 [Mass/Vol] 0.80 ng/dL Normal 0.71-1.85 [facility] Comment on above: Order Comment: Yes: Add to Previous draw if able Performed By: #### 3 0477, 34560 #### [facility] [address] [place] [id number], [facility] HEMOGLOBIN A1Con 11-01-2020 Glucose [Moles/Vol] 114 mmol/L Normal The [facility] Comment on above: Order Comment: Yes: Add to Previous draw if able Performed By: #### 3 0477, 59898 #### [facility] [address] [place] [address], [facility] HbA1c (Bld) [Mass fraction] 5.6 % Normal 4.0-6.0 [facility] Comment on above: Order Comment: Yes: Add to Previous draw if able Performed By: #### 3 476, 05383 #### [facility] [address] [place] [address], [facility] LIPID PROFILEon 11-01-2020 Cholesterol [Mass/Vol] 173 mg/dL Normal 120-200 [facility] Comment on above: Result Comment: CHOL ESTEROL REFERENCE RANGE: 20 YEARS AND OLDER CARDIOVASCULAR RISK Less than 200 mg/dl Low Risk 200 to 239 mg/dl Borderline Risk 240 mg/dl and greater High Risk Performed By: #### 3 476, 99528 #### [facility] [address] [place] [address], [facility] Cholesterol in HDL [Mass/Vol] 44 [...] High Risk Performed By: #### 3 476, 90272 #### [facility] [address] [place] [address], [facility] Cholesterol in LDL [Mass/Vol] 115 mg/dL Normal 0-130 [facility] Comment on above: Result Comment: LDL IS A CALCULATION LDL IS ONLY VALID IF THE TRIG IS LESS THAN 400. Performed By: #### 3 476, 65358 #### [facility] [address] [place] [address], [facility] Cholesterol.total/Ch olesterol in HDL [Mass ratio] 3.9 {ratio} Normal 0.0-4.5 [facility] Comment on above: Performed By: #### 3 476, 09391 #### [facility] [address] [place] [address], [place] NON-HDL CHOLESTEROL 129 mg/dL Normal [facility] Comment on above: Performed By: #### 3 476, 16598 #### [facility] [address] Triglyceride [Mass/Vol] 70 mg/dL Normal 40-149 [facility] Comment on above: Result Comment: TRIG LYCERIDE REFERENCE RANGE: 20 YEARS AND OLDER CARDIOVASCULAR RISK LESS THAN 150 mg/dl LOW RISK 150 TO 199 mg/dl BORDERLINE RISK 200 mg/dl AND GREATER HIGH RISK Performed By: #### 3 0477, 39894 #### [facility] [address] [place] [address], [facility] VLDL CHOL 14 mg/dL Normal 0-40 [facility] Comment on above: Performed By: #### 3 0477, 60621 #### [facility] [address] MAGNESIUM BLOODon 11-01-2020 Magnesium [Mass/Vol] 2.6 mg/dL Normal 1.9-2.7 [facility] Comment on above: Order Comment: No: D o not add to previous draw Performed By: #### 3 0477, 14145 #### [facility] [address] [place] [address], [facility] PHOSPHORUS BLOODon Phosphate [Mass/Vol] 2.9 mg/dL Normal 2.5-5.0 [facility] Comment on above: Order Comment: No: D o not add to previous draw Performed By: #### 3 0477, 80017 #### [facility] [address] PROCALCITONINon 11-01-2020 PROCALCITONIN 0.03 ng/mL Normal 0.00-0.10 The [facility] Comment on above: Order Comment: [...] PCT<0.5ng/mL Performed By: #### 8 5123 #### [facility] [address] TROPONIN-Ion 11-01-2020 Troponin I.cardiac [Mass/Vol] 0.39 ng/mL Critically high 0.00-0.04 [facility] Comment on above: Order Comment: No: D o not add to previous draw Result Comment: M-WI EVIOUS CRITICAL RESULT REFERENCE RANGES: 0.00 - 0.04 ng/ml NORMAL 0.05 - 0.50 ng/ml INDETERMINATE > 0.50 ng/ml CONSISTENT WITH AN M.I. Performed By: #### 3 0477, 10886 #### [facility] [address] UFH HEPARIN ASSAYon 11-02-19 UNFRACTIONATED HEPARIN 0.82 IU/mL High 0.30-0.70 [facility] Comment on above: Result Comment: [place] roxaban and Apixaban will interfere with the anti Xa assay used to monitor UFH and LMWH. Performed By: #### 3 1522, 29993, 88893, 26702 #### [facility] [address] UNFRACTIONATED HEPARIN 0.73 IU/mL High 0.30-0.70 [facility] Comment on above: Result Comment: [place] roxaban and Apixaban will interfere with the anti Xa assay used to monitor UFH and LMWH. Performed By: #### 3 1522, 56503, 57208, 56844 #### [facility] [address] [facility] UNFRACTIONATED HEPARIN 0.95 IU/mL Critically high 0.30-0.70 [facility] Comment on above: Result Comment: [place] roxaban and Apixaban will interfere with the anti Xa assay used to monitor UFH and LMWH. RESULTS CHECKED AND CALLED. ACCURATELY READ BACK BY THERESA SANTO RN AT 0540 Performed By: #### 8 5123 #### [facility] [address] UNFRACTIONATED HEPARIN <0.10 Critically low 0.30-0.70 [facility] Comment on above: Result Comment: [place] roxaban and Apixaban will interfere with the anti Xa assay used to monitor UFH and LMWH. Results called. Accurately read back by Theresa Santo RN, CVU 3A patient's nurse, at 2316, 31-Oct-2020. Performed By: #### 3 0477, 79615 #### [facility] [address] [facility] BNP (B-TYPE NATRIURETIC PEPT JOYCELYN)on 10-31-2020 Natriuretic peptide B (Bld) [Mass/Vol] 345 pg/mL High 0-100 [facility] Comment on above: Order Comment: No: D o not add to previous draw Result Comment: Give n the appropriate clinical setting a BNP result of >100 pg/mL indicates congestive heart failure. Performed By: #### 8 5123 #### [facility] [address] [place] [address], [facility] CBC W/DIFFon 10-31-2020 ABS IMM GRANS 0.0 10*3/uL Normal 0.0-0.2 The [facility] Comment on above: Order Comment: No: D o not add to previous draw Performed By: #### 8 5123 #### [facility] [address] [place] [address], [facility] ABS NEUTROPHILS 4.6 10*3/uL Normal 1.6-7.6 The [facility] Comment on above: Order Comment: No: D o not add to previous draw Performed By: #### 8 5123 #### [facility] [address] [place] [address], [place] Basophils (Bld) [#/Vol] 0.0 10*3/uL Normal 0.0-0.2 [facility] Comment on above: Order Comment: No: D o not add to previous draw Performed By: #### 8 5123 #### [facility] [address] [place] [address], [place] Basophils/100 WBC (Bld) 0.6 % Normal 0.0-1.0 [facility] Comment on above: Order Comment: No: D o not add to previous draw Performed By: #### 8 5123 #### [facility] [address] [place] [address], [place] Eosinophils (Bld) [#/Vol] 0.1 10*3/uL Normal 0.0-0.5 [facility] Comment on above: Order Comment: No: D o not add to previous draw Performed By: #### 8 5123 #### [facility] [address] [place] [address], [place] Eosinophils/100 WBC (Bld) 2.0 % Normal 0.0-6.0 [facility] Comment on above: Order Comment: No: D o not add to previous draw Performed By: #### 8 5123 #### [facility] [address] [place] [address], [place] Erythrocyte distribution width (RBC) [Ratio] 13.1 % Normal 11.5-15.0 [facility] Comment on above: Order Comment: No: D o not add to previous draw Performed By: #### 8 5123 #### [facility] [address] [place] [address], [facility] Hematocrit (Bld) [Volume fraction] 42.5 % Normal 39.0-50.0 [facility] Comment on above: Order Comment: No: D o not add to previous draw Performed By: #### 8 5123 #### [facility] [address] [facility] [place] [address], [facility] Hemoglobin (Bld) [Mass/Vol] 14.4 g/dL Normal 13.0-17.0 [facility] Comment on above: Order Comment: No: D o not add to previous draw Performed By: #### 8 5123 #### [facility] [address] [facility] [place] [address], [facility] IMMATURE GRANS 0.3 % Normal 0.0-1.0 [facility] Comment on above: Order Comment: No: D o not add to previous draw Performed By: #### 8 5123 #### [facility] [address] [facility] [place] [address], [facility] Lymphocytes (Bld) [#/Vol] 1.9 10*3/uL Normal 1.2-4.0 [facility] Comment on above: Order Comment: No: D o not add to previous draw Performed By: #### 8 5123 #### [facility] [address] [facility] [place] [id number], [facility] Lymphocytes/100 WBC (Bld) 26.8 % Normal 20.0-45.0 [facility] Comment on above: Order Comment: No: D o not add to previous draw Performed By: #### 8 5123 #### [facility] [address] [place] [id number], [facility] MCH (RBC) [Entitic mass] 30.1 pg Normal 27.0-33.0 [facility] Comment on above: Order Comment: No: D o not add to previous draw Performed By: #### 8 5123 #### [facility] [address] [place] [address], [facility] MCHC (RBC) [Mass/Vol] 33.9 g/dL Normal 32.0-35.0 [facility] Comment on above: Order Comment: No: D o not add to previous draw Performed By: #### 8 5123 #### [facility] [address] [place] [address], [facility] MCV (RBC) [Entitic vol] 88.7 fL Normal 82.0-98.0 [facility] Comment on above: Order Comment: No: D o not add to previous draw Performed By: #### 8 5123 #### [facility] [address] [facility] [place] [address], [facility] Monocytes (Bld) [#/Vol] 0.4 10*3/uL Normal 0.1-1.0 [facility] Comment on above: Order Comment: No: D o not add to previous draw Performed By: #### 8 5123 #### [facility] [address] [facility] [place] [id number], [facility] MONOS 6.0 % Normal 5.0-12.0 [facility] Comment on above: Order Comment: No: D o not add to previous draw Performed By: #### 8 5123 #### [facility] [address] [place] [address], [facility] Neutrophils/100 WBC (Bld) 64.3 % Normal 40.0-72.0 [facility] Comment on above: Order Comment: No: D o not add to previous draw Performed By: #### 8 5123 #### [facility] [address] [place] [id number], [facility] Nucleated RBC/100 WBC (Bld) [Ratio] 0 % Normal 0-0 [facility] Comment on above: Order Comment: No: D o not add to previous draw Performed By: #### 8 5123 #### [facility] [address] [place] [address], [facility] PLAT CNT 245 10*3/uL Normal 150-400 [facility] Comment on above: Order Comment: No: D o not add to previous draw Performed By: #### 8 5123 #### [facility] [address] [place] [address], [facility] RBC (Bld) [#/Vol] 4.79 10*6/uL Normal 4.20-5.[address] [facility] Comment on above: Order Comment: No: D o not add to previous draw Performed By: #### 8 5123 #### [facility] [address] [place] [address], [facility] WBC (Bld) [#/Vol] 7.16 10*3/uL Normal 4.00-10.[address] [facility] Comment on above: Order Comment: No: D o not add to previous draw Performed By: #### 8 5123 #### [facility] [address] [facility] [place] [address], [facility] COMP METABOLIC PANELon 10-31 Albumin [Mass/Vol] 4.0 g/dL Normal 3.5-5.7 [facility] Comment on above: Order Comment: No: D o not add to previous draw Performed By: #### 3 1522, 70677, 01247, 24591 #### [facility] [address] [place] [address], [facility] ALKALINE PHOSPH 47 IU/L Normal 34-104 [facility] Comment on above: Order Comment: No: D o not add to previous draw Performed By: #### 3 1522, 69752, 57199, 21722 #### [facility] [address] [place] [address], [place] ALT [Catalytic activity/Vol] 11 U/L Normal 7-52 [facility] Comment on above: Order Comment: No: D o not add to previous draw Performed By: #### 3 1522, 29323, 75228, 74665 #### [facility] [address] [place] [address], [place] AST [Catalytic activity/Vol] 17 U/L Normal 13-39 [facility] Comment on above: Order Comment: No: D o not add to previous draw Performed By: #### 3 1522, 64425, 84019, 58365 #### [facility] [address] [place] [address], [place] Bilirubin [Mass/Vol] 0.4 mg/dL Normal 0.3-1.0 [facility] Comment on above: Order Comment: No: D o not add to previous draw Performed By: #### 3 1522, 59931, 62989, 67828 #### [facility] [address] [place] [address], [place] Calcium [Mass/Vol] 9.6 mg/dL Normal 8.6-10.3 [facility] Comment on above: Order Comment: No: D o not add to previous draw Performed By: #### 3 1522, 83880, 46885, 02356 #### [facility] [address] [place] [address], [place] Chloride [Moles/Vol] 100 mmol/L Normal 98-107 [facility] Comment on above: Order Comment: No: D o not add to previous draw Performed By: #### 3 1522, 42734, 02628, 93424 #### [facility] [address] [place] [address], [place] CO2 [Moles/Vol] 30 mmol/L Normal 21-31 [facility] Comment on above: Order Comment: No: D o not add to previous draw Performed By: #### 3 1522, 42655, 47907, 01750 #### [facility] [address] [place] [address], [place] Creatinine [Mass/Vol] 1.37 mg/dL High 0.70-1.30 [facility] Comment on above: Order Comment: No: D o not add to previous draw Performed By: #### 3 1522, 36203, 75515, 06606 #### [facility] [address] [place] [address], [place] eGFR- 60 ml/min/1.73sq m Abnormal >60 [facility] Comment on above: Order Comment: No: D o not add to previous draw Result Comment: Calc ulation may not be valid for patients over 70 years Performed By: #### 3 1522, 08762, 61472, 28122 #### [facility] [address] [place] [address], [place] eGFR- non- 50 ml/min/1.73sq m Abnormal >60 [facility] Comment on above: Order Comment: No: D o not add to previous draw Result Comment: Calc ulation may not be valid for patients over 70 years Performed By: #### 3 1522, 56492, 83026, 95379 #### [facility] [address] [place] [address], [place] Glucose [Mass/Vol] 99 mg/dL Normal 70-100 [facility] Comment on above: Order Comment: No: D o not add to previous draw Performed By: #### 3 1522, 14261, 84763, 42846 #### [facility] [address] [place] [address], [place] Potassium [Moles/Vol] 3.5 mmol/L Normal 3.5-5.1 [facility] Comment on above: Order Comment: No: D o not add to previous draw Performed By: #### 3 1522, 68879, 72665, 65773 #### [facility] [address] [place] [address], [place] Protein [Mass/Vol] 6.8 g/dL Normal 6.0-8.3 [facility] Comment on above: Order Comment: No: D o not add to previous draw Performed By: #### 3 1522, [id number], 08321, [id number] #### [facility] [address] [place] [id number], [facility] Sodium [Moles/Vol] 139 mmol/L Normal 136-145 [facility] Comment on above: Order Comment: No: D o not add to previous draw Performed By: #### 3 1522, 62160, 89841, 92205 #### [facility] [address] [place] [address], [facility] Urea nitrogen [Mass/Vol] 21 mg/dL Normal 7-25 [facility] Comment on above: Order Comment: No: D o not add to previous draw Performed By: #### 3 1522, 25849, 38501, 58375 #### [facility] [address] D DIMER TESTon 10-31-2020 D-DIMER TEST 0.64 mcg/mL FEU High 0.27-0.49 [facility] Comment on [...] event. Performed By: #### 8 [id number] #### [facility] [address] [place] [id number], [facility] MAGNESIUM BLOODon 10-31-2020 Magnesium [Mass/Vol] 1.5 mg/dL Low 1.9-2.7 [facility] Comment on above: Order Comment: No: D o not add to previous draw Performed By: #### 3 1522, 64854, 34213, 30082 #### [facility] 3000 [facility]. [address] TROPONIN-Ion 10-31-2020 Troponin I.cardiac [Mass/Vol] 0.57 ng/mL Critically high 0.00-0.04 [facility] Comment on above: Order Comment: No: D o not add to previous draw Result Comment: M-CR ITICAL RESULT(S) REVIEWED, CALLED TO AND READ BACK BY FELECIA CANCHOLA @[facility] 10.31.20 REFERENCE RANGES: 0.00 - 0.04 ng/ml NORMAL 0.05 - 0.50 ng/ml INDETERMINATE > 0.50 ng/ml CONSISTENT WITH AN M.I. Performed By: #### 3 1522, 84007, 69761, 17678 #### [facility] [address] TSH3on 10-31-2020 TSH 3RD GENERATION 6.84 uIU/mL High 0.34-5.[address] [facility] Comment on above: Order Comment: No: D o not add to previous draw Performed By: #### 3 1522, 02327, 12394, 85890 #### [facility] [address] CBC Auto Differentialon 04-12 Basophils (Bld) [#/Vol] 0.00 10*3/uL [facility], [place] Basophils/100 WBC (Bld) 0 % 0 - 2 % [place], [place] Differential Type YES [place], [place] Eosinophils (Bld) [#/Vol] 0.20 10*3/uL [facility], [place] Eosinophils/100 WBC (Bld) 2 % 0 - 5 % [facility], [place] Erythrocyte distribution width (RBC) [Ratio] 13.8 % 12.1 - 15.2 % [facility], [place] Hematocrit (Bld) [Volume fraction] 42.1 % 41 - 53 % [facility], [place] Hemoglobin (Bld) [Mass/Vol] 14.3 g/dL 13.5 - 17.5 g/dL [place], [place] Lymphocytes (Bld) [#/Vol] 2.60 10*3/uL [place] Lymphocytes/100 WBC (Bld) 35 % 13 - 44 % [place] MCH (RBC) [Entitic mass] 31.0 pg 26 - 34 pg [place] MCHC (RBC) [Mass/Vol] 33.9 g/dL 31 - 37 g/dL [place] MCV (RBC) [Entitic vol] 91.5 fL 80 - 100 fL [place] Monocytes (Bld) [#/Vol] 0.40 10*3/uL [place] Monocytes/100 WBC (Bld) 6 % 5 - 9 % [place] Platelet mean volume (Bld) [Entitic vol] NOT REPORTED 6 - 12 fL [place], [place] Platelets (Bld) [#/Vol] NOT REPORTED [place] Platelets (Bld) [#/Vol] 274 10*3/uL [place] RBC (Bld) [#/Vol] 4.60 10*6/uL 4.5 - 5.9 m/uL [place] RBC morphology finding Nom (Bld) NOT REPORTED [place] Segmented neutrophils/100 WBC (Bld) 57 % 39 - 75 % [place] Segs Absolute 4.20 [place] WBC (Bld) [#/Vol] 7.4 10*3/uL [place] WBC (Bld) [#/Vol] NOT REPORTED per 100 WBC [place] WBC Morphology NOT REPORTED [place], [place] CBC with Diffon 04-30-2020 Abs. Basophil 0.00 k/uL Normal 0.0-0.2 [facility] Comment on above: Performed By: #### Z FAST, TSHX, MG, CP, CDP #### [facility] [address] [place] [address] Bacteriology Technician: Elio Pate MD #### VD25, LIPR #### [facility] [employer] [address] [place], [place] [id number] Bacteriology Technician: Jose Manuel Corona MD Abs.Neutrophil (Seg) 4.20 k/uL Normal 2.1-6.5 [facility] Comment on above: Performed By: #### Z FAST, TSHX, MG, CP, CDP #### [facility] [address] [place], [place] [id number] Bacteriology Technician: Elio Pate MD #### VD25, LIPR #### [address] [id number] Bacteriology Technician: Jose Manuel Corona MD Auto Diff Performed YES Normal [facility] Comment on above: Performed By: #### Z FAST, TSHX, MG, CP, CDP #### [facility] [address] [place] [id number] Bacteriology Technician: Eloi aPte MD #### VD25, LIPR #### [place] [id number] Bacteriology Technician: Jose Manuel Corona MD Basophils/100 WBC (Bld) 0 % Normal 0-2 [facility] Comment on above: Performed By: #### Z FAST, TSHX, MG, CP, CDP #### [facility] [address] [place] [address] Bacteriology Technician: Elio Pate MD #### VD25, LIPR #### [address] [id number] Bacteriology Technician: Jose Manuel Corona MD Eosinophils (Bld) [#/Vol] 0.20 10*3/uL Normal 0.0-0.4 [facility] Comment on above: Performed By: #### Z FAST, TSHX, MG, CP, CDP #### [facility] [address] [place] [address] Bacteriology Technician: Elio Pate MD #### VD25, LIPR #### [address] [id number] Bacteriology Technician: Jose Manuel Corona MD Eosinophils/100 WBC (Bld) 2 % Normal 0-5 [facility] Comment on above: Performed By: #### Z FAST, TSHX, MG, CP, CDP #### [facility] [address] [place], [place] [id number] Bacteriology Technician: Elio Pate MD #### VD25, LIPR #### [address] [phone] Bacteriology Technician: Jose Manuel Corona MD Erythrocyte distribution width (RBC) [Ratio] 13.8 % Normal 12.1-15.2 [facility] Comment on above: Performed By: #### Z FAST, TSHX, MG, CP, CDP #### [facility] [address] [place] [id number] Bacteriology Technician: Elio Pate MD #### VD25, LIPR #### [address] [id number] Bacteriology Technician: Jose Manuel Corona MD Hematocrit (Bld) [Volume fraction] 42.1 % Normal 41-53 [facility] Comment on above: Performed By: #### Z FAST, TSHX, MG, CP, CDP #### [facility] [address] [place] [id number] Bacteriology Technician: Elio Pate MD #### VD25, LIPR #### [address] [id number] Bacteriology Technician: Jose Manuel Corona MD Hemoglobin (Bld) [Mass/Vol] 14.3 g/dL Normal 13.5-17.5 [facility] Comment on above: Performed By: #### Z FAST, TSHX, MG, CP, CDP #### [facility] [address] [place] [address] Bacteriology Technician: Elio Pate MD #### VD25, LIPR #### [address] [id number] Bacteriology Technician: Jose Manuel Corona MD Lymphocytes (Bld) [#/Vol] 2.60 10*3/uL Normal 1.0-4.8 [facility] Comment on above: Performed By: #### Z FAST, TSHX, MG, CP, CDP #### [facility] [address] [place] [address] Bacteriology Technician: Elio Pate MD #### VD25, LIPR #### [address] [id number] Bacteriology Technician: Jose Manuel Corona MD Lymphocytes/100 WBC (Bld) 35 % Normal 13-44 [facility] Comment on above: Performed By: #### Z FAST, TSHX, MG, CP, CDP #### [facility] [address] [place] [address] Bacteriology Technician: Elio Pate MD #### VD25, LIPR #### [address] [phone] Bacteriology Technician: Jose Manuel Corona MD MCH (RBC) [Entitic mass] 31.0 pg Normal 26-34 [facility] Comment on above: Performed By: #### Z FAST, TSHX, MG, CP, CDP #### [facility] [address] [place] [address] Bacteriology Technician: Elio Pate MD #### VD25, LIPR #### [address] [phone] Bacteriology Technician: Jose Manuel Corona MD MCHC (RBC) [Mass/Vol] 33.9 g/dL Normal 31-37 [facility] Comment on above: Performed By: #### Z FAST, TSHX, MG, CP, CDP #### [facility] [address] [place] [address] Bacteriology Technician: Elio Pate MD #### VD25, LIPR #### [address] [phone] Bacteriology Technician: Jose Manuel Corona MD MCV (RBC) [Entitic vol] 91.5 fL Normal 80-100 [facility] Comment on above: Performed By: #### Z FAST, TSHX, MG, CP, CDP #### [facility] [address] [place] [phone] ( Bacteriology Technician: Elio Pate MD #### VD25, LIPR #### [place] [id number] Bacteriology Technician: Jose Manuel Corona MD Monocytes (Bld) [#/Vol] 0.40 10*3/uL Normal 0.0-1.0 [facility] Comment on above: Performed By: #### [place] FAST, TSHX, MG, CP, CDP #### [facility] [address] [place] [phone] Bacteriology Technician: Elio Pate MD #### VD25, LIPR #### [place] [address] Bacteriology Technician: Jose Manuel Corona MD Monocytes/100 WBC (Bld) 6 % Normal 5-9 [facility] Comment on above: Performed By: #### Z FAST, TSHX, MG, CP, CDP #### [facility] [address] [place] [phone] Bacteriology Technician: Elio Pate MD #### VD25, LIPR #### [place] [address] Bacteriology Technician: Jose Manuel Corona MD Neutrophil (Seg) 57 % Normal 39-75 [facility] Comment on above: Performed By: #### Z FAST, TSHX, MG, CP, CDP #### [facility] [address] [place] [phone] Bacteriology Technician: Elio Pate MD #### VD25, LIPR #### [address] [phone] Bacteriology Technician: Jose Manuel Corona MD Platelets (Bld) [#/Vol] 274 10*3/uL Normal 140-450 [facility] Comment on above: Performed By: #### Z FAST, TSHX, MG, CP, CDP #### [facility] [address] [place] [phone] Bacteriology Technician: Elio Pate MD #### VD25, LIPR #### [place] [id number] Bacteriology Technician: Jose Manuel Corona MD RBC (Bld) [#/Vol] 4.60 10*6/uL Normal 4.5-5.9 [facility] Comment on above: Performed By: #### Z FAST, TSHX, MG, CP, CDP #### [facility] [address] [place] [phone] Bacteriology Technician: Elio Pate MD #### VD25, LIPR #### [place] [address] Bacteriology Technician: Jose Manuel Corona MD WBC (Bld) [#/Vol] 7.4 10*3/uL Normal 3.5-11.0 [facility] Comment on above: Performed By: #### Z FAST, TSHX, MG, CP, CDP #### [facility] [address] [place] [phone] Bacteriology Technician: Elio Pate MD #### VD25, LIPR #### [place] [id number] Bacteriology Technician: Jose Manuel Corona MD Abs.Imm.Granulocyte NOT REPORTED Normal 0.00-0.30 [facility] Comment on above: Performed By: #### Z FAST, TSHX, MG, CP, CDP #### [facility] [address] [place], [place] [phone] Bacteriology Technician: Elio Pate MD #### VD25, LIPR #### [facility] [address] [place], [place] [phone] Bacteriology Technician: Jose Manuel Corona MD Immature granulocytes (Bld) [#/Vol] NOT REPORTED Normal 0 [facility] Comment on above: Performed By: #### Z FAST, TSHX, MG, CP, CDP #### [facility] [address] [place], [place] [phone] Bacteriology Technician: Elio Pate MD #### VD25, LIPR #### [address] [phone] Bacteriology Technician: Jose Manuel Corona MD NRBC Automated NOT REPORTED Normal [facility] Comment on above: Performed By: #### Z FAST, TSHX, MG, CP, CDP #### [facility] [address] [place], [place] [phone] Bacteriology Technician: Elio Pate MD #### VD25, LIPR #### [address] [phone] Bacteriology Technician: Jose Manuel Corona MD Platelet mean volume (Bld) [Entitic vol] NOT REPORTED Normal 6.0-12.0 [facility] Comment on above: Performed By: #### Z FAST, TSHX, MG, CP, CDP #### [facility] [address] [place] [address] Bacteriology Technician: Elio Pate MD #### VD25, LIPR #### [address] [id number] Bacteriology Technician: Jose Manuel Corona MD Platelets (Bld) [#/Vol] NOT REPORTED Normal [facility] Comment on above: Performed By: #### Z FAST, TSHX, MG, CP, CDP #### [facility] [address] [place], [place] [phone] Bacteriology Technician: Elio Pate MD #### VD25, LIPR #### [address] [phone] Bacteriology Technician: Jose Manuel Corona MD RBC morphology finding Nom (Bld) NOT REPORTED Normal [facility] Comment on above: Performed By: #### Z FAST, TSHX, MG, CP, CDP #### [facility] [address] [place] [address] Bacteriology Technician: Elio Pate MD #### VD25, LIPR #### [address] [phone] Bacteriology Technician: Jose Manuel Corona MD WBC Morphology NOT REPORTED Normal [facility] Comment on above: Performed By: #### Z FAST, TSHX, MG, CP, CDP #### [facility] [address] [place] [address] Bacteriology Technician: Elio Pate MD #### VD25, LIPR #### [address] [phone] Bacteriology Technician: Jose Manuel Corona MD Comp Metabolic Profon 2019 (cont.) Normal [facility] Comment on above: Result Comment: Aver age GFR for 70 or more years old: 75 mL/min/1.73sq m Chronic Kidney Disease: <60 mL/min/1.73sq m Kidney failure: <15 mL/min/1.73sq m eGFR calculated using average adult body mass. Additional eGFR calculator available at: http://www.[employer].com/multiple_crcl_2012.htm Performed By: #### Z FAST, TSHX, MG, CP, CDP #### [facility] [address] [place] [address] Bacteriology Technician: Elio Pate MD #### VD25, LIPR #### [place] [address] [place], [place] 7352308 Bacteriology Technician: Jose Manuel Corona MD Albumin [Mass/Vol] 4.4 g/dL Normal 3.5-5.2 [facility] Comment on above: Performed By: #### Z FAST, TSHX, MG, CP, CDP #### [facility] [address] [place], [place] [phone] Bacteriology Technician: Elio Pate MD #### VD25, LIPR #### [address] 1948708 Bacteriology Technician: Jose Manuel Corona MD Alkaline Phos 61 U/L Normal 40-129 [facility] Comment on above: Performed By: #### Z FAST, TSHX, MG, CP, CDP #### [facility] [address] [place], [place] [phone] Bacteriology Technician: Elio Pate MD #### VD25, LIPR #### [address] [phone] Bacteriology Technician: Jose Manuel Corona MD ALT [Catalytic activity/Vol] 14 U/L Normal 5-41 [facility] Comment on above: Performed By: #### Z FAST, TSHX, MG, CP, CDP #### [facility] [address] [place], [place] [phone] Bacteriology Technician: Elio Pate MD #### VD25, LIPR #### [address] [phone] Bacteriology Technician: Jose Manuel Corona MD Anion gap [Moles/Vol] 10 mmol/L Normal 9-17 [facility] Comment on above: Performed By: #### Z FAST, TSHX, MG, CP, CDP #### [facility] [address] [place], [place] [phone] Bacteriology Technician: Elio Pate MD #### VD25, LIPR #### [address] [id number] Bacteriology Technician: Jose Manuel Corona MD AST [Catalytic activity/Vol] 17 U/L Normal <40 [facility] Comment on above: Performed By: #### Z FAST, TSHX, MG, CP, CDP #### [facility] [address] [place], [place] [phone] Bacteriology Technician: Elio Pate MD #### VD25, LIPR #### [address] [id number] Bacteriology Technician: Jose Manuel Corona MD Bilirubin Ql (U) 0.53 mg/dL Normal 0.30-1.20 [facility] Comment on above: Performed By: #### Z FAST, TSHX, MG, CP, CDP #### [facility] [address] [place] [phone] Bacteriology Technician: Elio Pate MD #### VD25, LIPR #### [address] [phone] Bacteriology Technician: Jose Manuel Corona MD BUN/CRE Ratio 18 Normal 9-20 [facility] Comment on above: Performed By: #### Z FAST, TSHX, MG, CP, CDP #### [facility] [address] [place], [place] [phone] Bacteriology Technician: Elio Pate MD #### VD25, LIPR #### [address] [phone] Bacteriology Technician: Jose Manuel Corona MD Calcium [Mass/Vol] 11.1 mg/dL High 8.6-10.4 [facility] Comment on above: Performed By: #### Z FAST, TSHX, MG, CP, CDP #### [facility] [address] [place], [place] [phone] Bacteriology Technician: Elio Pate MD #### VD25, LIPR #### [address] [phone] Bacteriology Technician: Jose Manuel Corona MD Chloride [Moles/Vol] 101 mmol/L Normal 98-107 [facility] Comment on above: Performed By: #### Z FAST, TSHX, MG, CP, CDP #### [facility] [address] [place] [phone] ( Bacteriology Technician: Elio Pate MD #### VD25, LIPR #### [address] [phone] Bacteriology Technician: Jose Manuel Corona MD CO2 [Moles/Vol] 30 mmol/L Normal 20-31 [facility] Comment on above: Performed By: #### Z FAST, TSHX, MG, CP, CDP #### [facility] [address] [place] [phone] Bacteriology Technician: Elio Pate MD #### VD25, LIPR #### [address] [id number] Bacteriology Technician: Jose Manuel Corona MD Creatinine [Mass/Vol] 1.48 mg/dL High 0.70-1.20 [facility] Comment on above: Performed By: #### Z FAST, TSHX, MG, CP, CDP #### [facility] [address] [place] [phone] Bacteriology Technician: Elio Pate MD #### VD25, LIPR #### [address] [phone] Bacteriology Technician: Jose Manuel Corona MD GFR, Amer 55 mL/min Low >60 [facility] Comment on above: Performed By: #### Z FAST, TSHX, MG, CP, CDP #### [facility] [address] [place] [address] Bacteriology Technician: Elio Pate MD #### VD25, LIPR #### [place] [address] [place], [place] 2697108 Bacteriology Technician: Jose Manuel Corona MD GFR,non Amer 46 mL/min Low >60 [facility] Comment on above: Performed By: #### Z FAST, TSHX, MG, CP, CDP #### [facility] [address] [place], [place] [phone] Bacteriology Technician: Elio Pate MD #### VD25, LIPR #### [address] [phone] Bacteriology Technician: Jose Manuel Corona MD Glucose [Mass/Vol] 89 mg/dL Normal 70-99 [facility] Comment on above: Performed By: #### Z FAST, TSHX, MG, CP, CDP #### [facility] [address] [place] [address] Bacteriology Technician: Elio Pate MD #### VD25, LIPR #### [address] [id number] Bacteriology Technician: Jose Manuel Corona MD Potassium [Moles/Vol] 3.8 mmol/L Normal 3.7-5.3 [facility] Comment on above: Performed By: #### Z FAST, TSHX, MG, CP, CDP #### [facility] [address] [place] [address] Bacteriology Technician: Elio Pate MD #### VD25, LIPR #### [place] [address] [place], [place] 4674308 Bacteriology Technician: Jose Manuel Corona MD Protein [Mass/Vol] 7.4 g/dL Normal 6.4-8.3 [facility] Comment on above: Performed By: #### Z FAST, TSHX, MG, CP, CDP #### [facility] [address] [place] [address] Bacteriology Technician: Elio Pate MD #### VD25, LIPR #### [facility] [address] [place] [address] Bacteriology Technician: Jose Manuel Corona MD Sodium [Moles/Vol] 141 mmol/L Normal 135-144 [facility] Comment on above: Performed By: #### Z FAST, TSHX, MG, CP, CDP #### [facility] [address] [place] [address] Bacteriology Technician: Elio Pate MD #### VD25, LIPR #### [address] [address] Bacteriology Technician: Jose Manuel Corona MD Urea nitrogen [Mass/Vol] 26 mg/dL High 8-23 [facility] Comment on above: Performed By: #### Z FAST, TSHX, MG, CP, CDP #### [facility] [address] [place] [address] Bacteriology Technician: Elio Pate MD #### VD25, LIPR #### [address] [address] Bacteriology Technician: Jose Manuel Corona MD Albumin/Globulin [Mass ratio] NOT REPORTED Normal 1.0-2.5 [facility] Comment on above: Performed By: #### Z FAST, TSHX, MG, CP, CDP #### [facility] [address] [place] [address] Bacteriology Technician: Elio Pate MD #### VD25, LIPR #### [address] [address] Bacteriology Technician: Jose Manuel Corona MD Staging: NOT REPORTED Normal [facility] Comment on above: Performed By: #### Z FAST, TSHX, MG, CP, CDP #### [facility] [address] [place] [address] Bacteriology Technician: Elio Pate MD #### VD25, LIPR #### [facility] [address] [place] [id number] Bacteriology Technician: Jose Manuel Corona MD Comprehensive Metabolic Pane oliva 04-30-2020 Albumin [Mass/Vol] 4.4 g/dL 3.5 - 5.2 g/dL [place] Albumin/Globulin [Mass ratio] NOT REPORTED [place] ALP [Catalytic activity/Vol] 61 U/L 40 - 129 U/L [place] ALT [Catalytic activity/Vol] 14 U/L 5 - 41 U/L [place] Anion gap [Moles/Vol] 10 mmol/L 9 - 17 mmol/L [place] AST [Catalytic activity/Vol] 17 U/L <40 [place] Bilirubin Ql (U) 0.53 mg/dL 0.3 - 1.2 mg/dL [place] Bun/Cre Ratio 18 [place] Calcium [Mass/Vol] 11.1 mg/dL High 8.6 - 10. 4 mg/dL [place] Chloride [Moles/Vol] 101 mmol/L 98 - 10 7 mmol/L [place] CO2 [Moles/Vol] 30 mmol/L 20 - 31 mmol/L [place] Creatinine [Mass/Vol] 1.48 mg/dL High 0.7 - 1.2 mg/dL [place] GFR 55 mL/min Low >60 [place] GFR Non- 46 mL/min Low >60 [place] GFR/1.73 sq M predicted among non-blacks MDRD (S/P/Bld) [Vol rate/Area] NOT REPORTED [place] GFR/1.73 sq M predicted among non-blacks MDRD (S/P/Bld) [Vol rate/Area] [place] Comment on above: Average GFR for 70 o r more years old: 75 mL/min/1.73sq m Chronic Kidney Disease: <60 mL/min/1.73sq m Kidney failure: <15 mL/min/1.73sq m eGFR calculated using average adult body mass. Additional eGFR calculator available at: http://www.[employer]/multiple_crcl_2012.htm Glucose [Mass/Vol] 89 mg/dL 70 - 99 mg/dL [place] Interpretation and review of laboratory results Abnormal [place] Potassium [Moles/Vol] 3.8 mmol/L 3.7 - 5.3 mmol/L [place] Protein [Mass/Vol] 7.4 g/dL 6.4 - 8.3 g/dL [place] Sodium [Moles/Vol] 141 mmol/L 135 - 144 mmol/L [place] Urea nitrogen [Mass/Vol] 26 mg/dL High 8 - 23 mg/dL [place] Lipid Panelon 04-30-2020 Cholesterol [Mass/Vol] 152 mg/dL <200 [place] Comment on above: Cholesterol Guidelines: <200 Desirable 200-240 Borderline >240 Undesirable Cholesterol in HDL [Mass/Vol] 48 mg/dL >40 [place] Comment on above: HDL Guidelines: <40 Undesirable 40-59 Borderline >59 Desirable Cholesterol in LDL [Mass/Vol] 89 mg/dL 0 - 130 mg/dL [place] Comment on above: LDL Guidelines: <100 Desirable 100-129 Near to/above Desirable 130-159 Borderline >159 Undesirable Direct (measured) LDL and calculated LDL are not interchangeable tests. Cholesterol in VLDL [Mass/Vol] NOT REPORTED 1 - 30 mg/dL [place] Cholesterol.total/Ch olesterol in HDL [Mass ratio] 3.2 {ratio} <5 [place] Triglyceride [Mass/Vol] 75 mg/dL <150 [place] Comment on above: Triglyceride Guidelines: <150 Desirable 150-199 Borderline 200-499 High >499 Very high Based on AHA Guidelines for fasting triglyceride, March 2012. Lipid Profileon 04-30-2020 Cholesterol [Mass/Vol] 152 mg/dL Normal <200 [facility] Comment on above: Result Comment: Cholesterol Guidelines: <200 Desirable 200-240 Borderline >240 Undesirable Performed By: #### Z FAST, TSHX, MG, CP, CDP #### [facility] [address] [place] [address] Bacteriology Technician: Elio Pate MD #### VD25, LIPR #### [facility] [address] [place], [place] 2595[address] Bacteriology Technician: Jose Manuel Corona MD Cholesterol in HDL [Mass/Vol] 48 mg/dL Normal >40 [facility] Comment on above: Result Comment: HDL Guidelines: <40 Undesirable 40-59 Borderline >59 Desirable Performed By: #### Z FAST, TSHX, MG, CP, CDP #### [facility] [address] [place] [address] Bacteriology Technician: Elio Pate MD #### VD25, LIPR #### [facility] [employer] [place], [place] 9785508 Bacteriology Technician: Jose Manuel Corona MD Cholesterol in LDL [Mass/Vol] 89 mg/dL Normal 0-130 [facility] Comment on above: Result Comment: LDL Guidelines: <100 Desirable 100-129 Near to/above Desirable 130-159 Borderline >159 Undesirable Direct (measured) LDL and calculated LDL are not interchangeable tests. Performed By: #### Z FAST, TSHX, MG, CP, CDP #### [facility] [address] [place] [address] Bacteriology Technician: Elio Pate MD #### VD25, LIPR #### [facility] [employer] [address] [place], [place] [id number] Bacteriology Technician: Jose Manuel Corona MD Cholesterol.total/Ch olesterol in HDL [Mass ratio] 3.2 {ratio} Normal <5 [facility] Comment on above: Performed By: #### Z FAST, TSHX, MG, CP, CDP #### [facility] [address] [place] [address] Bacteriology Technician: Elio Pate MD #### VD25, LIPR #### [id number] [place], [place] [id number] Bacteriology Technician: Jose Manuel Corona MD Triglyceride [Mass/Vol] 75 mg/dL Normal <150 [facility] Comment on above: Result Comment: Triglyceride Guidelines: <150 Desirable 150-199 Borderline 200-499 High >499 Very high Based on AHA Guidelines for fasting triglyceride, March 2012. Performed By: #### Z FAST, TSHX, MG, CP, CDP #### [facility] [address] [place] [address] Bacteriology Technician: Elio Pate MD #### VD25, LIPR #### [address] [id number] Bacteriology Technician: Jose Manuel Corona MD Cholesterol in VLDL [Mass/Vol] NOT REPORTED Normal -30 [facility] Comment on above: Performed By: #### Z FAST, TSHX, MG, CP, CDP #### [facility] [address] [place] [address] Bacteriology Technician: Elio Pate MD #### VD25, LIPR #### [address] [id number] Bacteriology Technician: Jose Manuel Corona MD Magnesiumon 04-30-2020 Magnesium [Mass/Vol] 1.7 mg/dL Normal 1.6-2.6 [facility] Comment on above: Performed By: #### Z FAST, TSHX, MG, CP, CDP #### [facility] [address] [place], [place] [id number] Bacteriology Technician: Elio Pate MD #### VD25, LIPR #### [address] [id number] Bacteriology Technician: Jose Manuel Corona MD Magnesium [Mass/Vol] 1.7 mg/dL 1.6 - 2 .6 mg/dL [place], [place] Otheron 04-30-2020 Immature granulocytes (Bld) [#/Vol] NOT REPORTED [place], [place] Patient Fasting?on 0 Patient Fasting? YES [place], [place] Patient fasting?on 0 Patient fasting? YES Normal [facility] Comment on above: Performed By: #### Z FAST, TSHX, MG, CP, CDP #### [facility] [address] [place] [address] Bacteriology Technician: Elio Pate MD #### VD25, LIPR #### [facility] [employer] [address] [place], [place] [id number] Bacteriology Technician: Jose Manuel Corona MD TSH w/reflex to FT4on 2019 TSH Qn 3.67 m[IU]/L Normal 0.30-5.00 [facility] Comment on above: Performed By: #### Z FAST, TSHX, MG, CP, CDP #### [facility] [address] [place] [address] Bacteriology Technician: Elio Pate MD #### VD25, LIPR #### [facility] [address] [place], [place] [id number] Bacteriology Technician: Jose Manuel Corona MD TSH with Reflexon 04-30-2020 TSH Qn 3.67 m[IU]/L [place], [place] Vitamin D 25 Hydroxyon 04-30 Vit D, 25-Hydroxy 48.9 ng/mL 30 - 100 ng/mL [place], [place] Comment on above: Reference Range: Vitamin D status Range Deficiency <20 ng/mL Mild Deficiency 20-30 ng/mL Sufficiency 30-100 ng/mL Toxicity >100 ng/mL Vitamin D 25 OHon 04-30-2020 Vitamin D 25 [place] 48.9 ng/mL Normal 30.0-100.0 [facility] Comment on above: Result Comment: Reference Range: Vitamin D status Range Deficiency <20 ng/mL Mild Deficiency 20-30 ng/mL Sufficiency 30-100 ng/mL Toxicity >100 ng/mL Performed By: #### Z FAST, TSHX, MG, CP, CDP #### [facility] [address] [place] [address] Bacteriology Technician: Elio Pate MD #### VD25, LIPR #### [employer] [address] [place] [address] Bacteriology Technician: Jose Manuel Corona MD XR CHEST (2 [...] Akhtar Jr., MD 04/30/20 Final result Normal [facility] Granulocytes/100 WBC (Bld) Dilated tortuous aorta. Small granuloma left lung of no significance. [place], [place] EXAM: XR CHEST (2 VW ) HISTORY: Reason for exam:->a fib COMPARISON: Chest 04/16/2019 TECHNIQUE: 2 views chest FINDINGS: The aorta is dilated and tortuous including prominent ascending aorta arch and descending aorta. 5 mm calcified granuloma overlying the lateral left anterior 6th rib. Surgical clips in the right upper quadrant abdomen. No failure, pneumonia, or effusion. [place] Americo, [employer] Incoming Radiant Results From [employer]/Pacs - 04/30/2020 12:37 PM EST EXAM: XR [...] Small granuloma left lung of no significance. [place] CBC Auto Differentialon Basophils (Bld) [#/Vol] 0.00 10*3/uL [place] Basophils/100 WBC (Bld) 1 % 0 - 2 % [place] Differential Type YES [place] Eosinophils (Bld) [#/Vol] 0.10 10*3/uL [place] Eosinophils/100 WBC (Bld) 1 % 0 - 5 % [place] Erythrocyte distribution width (RBC) [Ratio] 13.6 % 12.1 - 15.2 % [place] Hematocrit (Bld) [Volume fraction] 43.1 % 41 - 53 % [place] Hemoglobin (Bld) [Mass/Vol] 14.5 g/dL 13.5 - 17.5 g/dL [place] Lymphocytes (Bld) [#/Vol] 2.60 10*3/uL [place] Lymphocytes/100 WBC (Bld) 34 % 13 - 44 % [place] MCH (RBC) [Entitic mass] 31.3 pg 26 - 34 pg [place] MCHC (RBC) [Mass/Vol] 33.7 g/dL 31 - 37 g/dL [place] MCV (RBC) [Entitic vol] 92.8 fL 80 - 100 fL [place] Monocytes (Bld) [#/Vol] 0.50 10*3/uL [place] Monocytes/100 WBC (Bld) 7 % 5 - 9 % [place] Platelet mean volume (Bld) [Entitic vol] NOT REPORTED 6 - 12 fL [place] Platelets (Bld) [#/Vol] 265 10*3/uL [place] Platelets (Bld) [#/Vol] NOT REPORTED [place] RBC (Bld) [#/Vol] 4.64 10*6/uL 4.5 - 5.9 m/uL [place] RBC morphology finding Nom (Bld) NOT REPORTED [place] Segmented neutrophils/100 WBC (Bld) 57 % 39 - 75 % [place] Segs Absolute 4.40 [place] WBC (Bld) [#/Vol] NOT REPORTED per 100 WBC [place] WBC (Bld) [#/Vol] 7.7 10*3/uL [place] WBC Morphology NOT REPORTED [place] Comprehensive Metabolic Pane oliva 04-16-2019 Albumin [Mass/Vol] 4.6 g/dL 3.5 - 5.2 g/dL [place] Albumin/Globulin [Mass ratio] NOT REPORTED [place] ALP [Catalytic activity/Vol] 75 U/L 40 - 129 U/L [place] ALT [Catalytic activity/Vol] 12 U/L 5 - 41 U/L [place] Anion gap [Moles/Vol] 14 mmol/L 9 - 17 mmol/L [place] AST [Catalytic activity/Vol] 16 U/L <40 [place] Bilirubin Ql (U) 0.83 mg/dL 0.3 - 1.2 mg/dL [place] Bun/Cre Ratio 19 [place] Calcium [Mass/Vol] 10.5 mg/dL High 8.6 - 10. 4 mg/dL [place] Chloride [Moles/Vol] 100 mmol/L 98 - 10 7 mmol/L [place] CO2 [Moles/Vol] 24 mmol/L 20 - 31 mmol/L [place] Creatinine [Mass/Vol] 1.54 mg/dL High 0.7 - 1.2 mg/dL [place] GFR 53 mL/min Low >60 [place] GFR Non- 44 mL/min Low >60 [place] GFR/1.73 sq M predicted among non-blacks MDRD (S/P/Bld) [Vol rate/Area] [place] Comment on above: Average GFR for 70 o r more years old: 75 mL/min/1.73sq m Chronic Kidney Disease: <60 mL/min/1.73sq m Kidney failure: <15 mL/min/1.73sq m eGFR calculated using average adult body mass. Additional eGFR calculator available at: http://www.[employer].com/multiple_crcl_2012.htm GFR/1.73 sq M predicted among non-blacks MDRD (S/P/Bld) [Vol rate/Area] NOT REPORTED [place] Glucose [Mass/Vol] 98 mg/dL 70 - 99 mg/dL [place] Potassium [Moles/Vol] 4.0 mmol/L 3.7 - 5.3 mmol/L [place] Protein [Mass/Vol] 8.1 g/dL 6.4 - 8.3 g/dL [place] Sodium [Moles/Vol] 138 mmol/L 135 - 144 mmol/L [place] Urea nitrogen [Mass/Vol] 30 mg/dL High 8 - 23 mg/dL [place] Lipid Panelon 04-16-2019 Cholesterol [Mass/Vol] 208 mg/dL High <200 [place] Comment on above: Cholesterol Guidelines: <200 Desirable 200-240 Borderline >240 Undesirable Cholesterol in HDL [Mass/Vol] 59 mg/dL >40 [place] Comment on above: HDL Guidelines: <40 Undesirable 40-59 Borderline >59 Desirable Cholesterol in LDL [Mass/Vol] 130 mg/dL 0 - 130 mg/dL [place] Comment on above: LDL Guidelines: <100 Desirable 100-129 Near to/above Desirable 130-159 Borderline >159 Undesirable Direct (measured) LDL and calculated LDL are not interchangeable tests. Cholesterol in VLDL [Mass/Vol] NOT REPORTED 1 - 30 mg/dL [place] Cholesterol.total/Ch olesterol in HDL [Mass ratio] 3.5 {ratio} <5 [place] Triglyceride [Mass/Vol] 94 mg/dL <150 [place] Comment on above: Triglyceride Guidelines: <150 Desirable 150-199 Borderline 200-499 High >499 Very high Based on AHA Guidelines for fasting triglyceride, March 2012. Magnesiumon 04-16-2019 Magnesium [Mass/Vol] 1.8 mg/dL 1.6 - 2 .6 mg/dL [place] Otheron 04-16-2019 Interpretation and review of laboratory results Abnormal [place] Immature granulocytes (Bld) [#/Vol] NOT REPORTED [place] Patient Fasting?on 9 Patient Fasting? yes [place] TSH with Reflexon 04-16-2019 TSH Qn 2.24 m[IU]/L [place] Vitamin D 25 Hydroxyon 04-16 Vit D, 25-Hydroxy 60.3 ng/mL 30 - 100 ng/mL [place] Comment on above: Reference Range: Vitamin D status Range Deficiency <20 ng/mL Mild Deficiency 20-30 ng/mL Sufficiency 30-100 ng/mL Toxicity >100 ng/mL XR CHEST STANDARD (2 VW)on 06-16-2018 Granulocytes/100 WBC (Bld) Dilated tortuous aorta. Small granuloma left lung of no significance. [place] EXAM: XR CHEST (2 VW ) HISTORY: I10 78-year-old male essential hypertension. COMPARISON: None. TECHNIQUE: 2 views chest. FINDINGS: The aorta is dilated and tortuous including prominent ascending aorta arch and descending aorta. 5 mm calcified granuloma overlying the lateral left anterior 6th rib. Surgical clips in the right upper quadrant abdomen. No failure, pneumonia, or effusion. [place], [facility] Incoming Radiant Results From [employer] - 04/16/2019 2:19 PM EST EXAM: XR [...] Small granuloma left lung of no significance. [place] Basic Metabolic Panelon 03-12 Anion gap [Moles/Vol] 18 mmol/L 10 - 20 mmol/L [facility] Calcium [Mass/Vol] 10.2 mg/dL 8.4 - 10. 2 mg/dL [facility] Chloride [Moles/Vol] 101 mmol/L 98 - 10 8 mmol/L [facility] Creatinine [Mass/Vol] 1.15 mg/dL 0.8 - 1.3 mg/dL [facility] GFR/1.73 sq M predicted among non-blacks MDRD (S/P/Bld) [Vol rate/Area] The eGFR should be used for monitoring renal function only and not for medication dosing. [facility] GFR/1.73 sq M.predicted CKD-EPI (S/P/Bld) [Vol rate/Area] 60 >=60 mL/min/1.73 m2 [facility] Glucose [Mass/Vol] 60 mg/dL Low 65 - 99 mg/dL [facility] HCO3 [Moles/Vol] 24 mmol/L 21 - 32 mmol/L [facility] Interpretation and review of laboratory results Abnormal [facility] Potassium [Moles/Vol] 4.1 mmol/L 3.5 - 5.1 mmol/L [facility] Sodium [Moles/Vol] 139 mmol/L 135 - 145 mmol/L [facility] Urea nitrogen [Mass/Vol] 23 mg/dL 8 - 25 mg/dL [facility] Urea nitrogen/Creatinine [Mass ratio] 20.0 mg/mg [facility] CBC WITH AUTO DIFFERENTIALon 03-28-2019 Basophils (Bld) [#/Vol] 0.04 10*3/uL [facility] Basophils/100 WBC (Bld) 0.5 % [facility] Eosinophils (Bld) [#/Vol] 0.06 10*3/uL [facility] Eosinophils/100 WBC (Bld) 0.8 % [facility] Erythrocyte distribution width (RBC) [Entitic vol] 12.9 % 11.6 - 14.8 % [facility] Hematocrit (Bld) [Volume fraction] 39.7 % Low 41 - 53 % [facility] Hemoglobin (Bld) [Mass/Vol] 13.3 g/dL Low 13.5 - 17.5 g/dL [facility] Immature granulocytes (Bld) [#/Vol] 0.03 10*3/uL [facility] Immature granulocytes/100 WBC (Bld) 0.40 % [facility] Comment on above: The IG parameter is the percentage of metamyelocytes, myelocytes, and promyelocytes. Interpretation and review of laboratory results Abnormal [facility] Lymphocytes (Bld) [#/Vol] 2.67 10*3/uL [facility] Lymphocytes/100 WBC (Bld) 35.8 % [facility] MCH (RBC) [Entitic mass] 31.1 pg 26 - 34 pg [facility] MCHC (RBC) [Mass/Vol] 33.5 g/dL 31 - 37 g/dL [facility] MCV (RBC) [Entitic vol] 93.0 fL 80 - 100 fL [facility] Monocytes (Bld) [#/Vol] 0.51 10*3/uL [facility] Monocytes/100 WBC (Bld) 6.8 % [facility] Neutrophils (Bld) [#/Vol] 4.15 10*3/uL [facility] Neutrophils/100 WBC (Bld) 55.7 % [facility] Nucleated RBC (Bld) [#/Vol] 0.00 10*3/uL [facility] Nucleated RBC/100 WBC (Bld) [Ratio] 0.0 % [facility] Platelet mean volume (Bld) [Entitic vol] 9.5 fL 9 - 15.5 fL [facility] Platelets (Bld) [#/Vol] 222 10*3/uL [facility] RBC (Bld) [#/Vol] 4.27 10*6/uL Low [facility] WBC (Bld) [#/Vol] 7.46 10*3/uL [facility] ECHOCARDIOGRAM TRANSESOPHAGE [place] 04-06-2018 Transesophageal Echocardiogram ____ Patient: [facility] Rec#: [id number] (Age): 1940(77y) Height: 172.7(cm)/67(in Study Date: 04/06/2018 Weight: 72.6(kg)/160(lb Room#: BSA: 1.86 Type: Outpatient Loc: [facility] Procedure Room Sex: M ____ Reading: oJey Fischer MD MSc Referring: TRICALEX Performing: Joey Fischer MD MSc Nurse: JAY DU RN Secondary NurseFischerLorene CCRN History: Atrial fibrillation. Cancer. ProstateCVA, history. Hyperlipidemia Hypertension. Other. CardioversionRenal failure. Diagnosis: ICD-10-PCS Unspecified atrial fibrillation (I48.91) Atrial Fibrillation (427.31) CPT Code(s): DOP ECHO COLOR JEOVANNY MIKA MAPG (38963) DOP ECHO COMPL (39446) [facility] R-T IMG 2D W/PRB IMG ACQUISJ IR (86367) Summary: Patient identity verified and ID band [...] 12:25 PM EDT Transesophageal Echocardiogram ____ Patient: [facility] Rec#: [id number] (Age): 1940(77y) Height: 172.7(cm)/67(in Study Date: 04/06/2018 [...] Code(s): DOP ECHO COLOR JEOVANNY MIKA MAPG (41184) DOP ECHO COMPL (23059) [facility]D R-T IMG 2D W/PRB IMG ACQUISJ IR (91443) Summary: Patient identity verified and ID band [...] Joey Fischer MD MSc Invalid Interpretation Code [facility] Basic Metabolic Panelon 09- Anion gap 3 molar conc 16 mmol/L Invalid Interpretation Code 10 - 20 mmol/L [facility] Calcium mass conc 9.2 mg/dL Invalid Interpretation Code 8.4 - 10.2 mg/dL [facility] Chloride molar conc 104 mmol/L Invalid Interpretation Code 98 - 108 mmol/L [facility] Creatinine mass conc 1.26 mg/dL Invalid Interpretation Code 0.8 - 1.3 mg/dL [facility] GFR/1.73 sq M predicted among non-blacks MDRD vol rate/area (S/P/Bld) The eGFR should be used for monitoring renal function only and not for medication dosing. Invalid Interpretation Code [facility] GFR/1.73 sq M.predicted CKD-EPI vol rate/area (S/P/Bld) 54 Low >=60 mL/min/1.73 m2 [facility] Glucose mass conc 85 mg/dL Invalid Interpretation Code 65 - 99 mg/dL [facility] HCO3 molar conc 24 mmol/L Invalid Interpretation Code 21 - 32 mmol/L [facility] Interpretation and review of laboratory results Abnormal Invalid Interpretation Code [facility] Potassium molar conc 4.1 mmol/L Invalid Interpretation Code 3.5 - 5.1 mmol/L [facility] Sodium molar conc 140 mmol/L Invalid Interpretation Code 135 - 145 mmol/L [facility] Urea nitrogen mass conc 22 mg/dL Invalid Interpretation Code 8 - 25 mg/dL [facility] Urea nitrogen/Creatinine mass ratio 17.5 mg/mg Invalid Interpretation Code [facility] CBCon 02-22-2018 Erythrocyte distribution width Auto Entitic volume (RBC) 12.5 % Invalid Interpretation Code 11.6 - 14.8 % [facility] Hematocrit Auto Volume Fraction (Bld) 40.4 % Low 41 - 53 % [facility] Hemoglobin mass conc (Bld) 13.6 g/dL Invalid Interpretation Code 13.5 - 17.5 g/dL [facility] Interpretation and review of laboratory results Abnormal Invalid Interpretation Code [facility] MCH Auto Entitic mass (RBC) 31.5 pg Invalid Interpretation Code 26 - 34 pg [facility] MCHC Auto mass conc (RBC) 33.7 g/dL Invalid Interpretation Code 31 - 37 g/dL [facility] MCV Auto Entitic volume (RBC) 93.5 fL Invalid Interpretation Code 80 - 100 fL [facility] Nucleated RBC #/vol (Bld) 0.00 10*3/uL Invalid Interpretation Code [facility] Nucleated RBC/100 WBC Ratio (Bld) 0.0 % Invalid Interpretation Code [facility] Platelet mean volume Auto Entitic volume (Bld) 9.5 fL Invalid Interpretation Code 9 - 15.5 fL [facility] Platelets Auto #/vol (Bld) 193 10*3/uL Invalid Interpretation Code [facility] RBC Auto #/vol (Bld) 4.32 10*6/uL Low [facility] WBC Auto #/vol (Bld) 6.59 10*3/uL Invalid Interpretation Code [facility] CBC Auto Differentialon 02-10 Basophils Auto #/vol (Bld) 0.04 10*3/uL Invalid Interpretation Code [facility] Basophils/100 WBC Auto (Bld) 0.5 % Invalid Interpretation Code [facility] Eosinophils Auto #/vol (Bld) 0.13 10*3/uL Invalid Interpretation Code [facility] Eosinophils/100 WBC Auto (Bld) 1.8 % Invalid Interpretation Code [facility] Erythrocyte distribution width Auto Entitic volume (RBC) 12.9 % Invalid Interpretation Code 11.6 - 14.8 % [facility] Hematocrit Auto Volume Fraction (Bld) 41.4 % Invalid Interpretation Code 41 - 53 % [facility] Hemoglobin mass conc (Bld) 14.5 g/dL Invalid Interpretation Code 13.5 - 17.5 g/dL [facility] Immature granulocytes #/vol (Bld) 0.02 10*3/uL Invalid Interpretation Code [facility] Immature granulocytes/100 WBC (Bld) 0.30 % Invalid Interpretation Code [facility] Comment on above: The IG parameter is the percentage of metamyelocytes, myelocytes, and promyelocytes. Interpretation and review of laboratory results Abnormal Invalid Interpretation Code [facility] Lymphocytes Auto #/vol (Bld) 2.56 10*3/uL Invalid Interpretation Code [facility] Lymphocytes/100 WBC Auto (Bld) 35.2 % Invalid Interpretation Code [facility] MCH Auto Entitic mass (RBC) 32.4 pg Invalid Interpretation Code 26 - 34 pg [facility] MCHC Auto mass conc (RBC) 35.0 g/dL Invalid Interpretation Code 31 - 37 g/dL [facility] MCV Auto Entitic volume (RBC) 92.6 fL Invalid Interpretation Code 80 - 100 fL [facility] Monocytes Auto #/vol (Bld) 0.54 10*3/uL Invalid Interpretation Code [facility] Monocytes/100 WBC Auto (Bld) 7.4 % Invalid Interpretation Code [facility] Neutrophils Auto #/vol (Bld) 3.99 10*3/uL Invalid Interpretation Code [facility] Neutrophils/100 WBC Auto (Bld) 54.8 % Invalid Interpretation Code [facility] Nucleated RBC #/vol (Bld) 0.00 10*3/uL Invalid Interpretation Code [facility] Nucleated RBC/100 WBC Ratio (Bld) 0.0 % Invalid Interpretation Code [facility] Platelet mean volume Auto Entitic volume (Bld) 9.4 fL Invalid Interpretation Code 9 - 15.5 fL [facility] Platelets Auto #/vol (Bld) 218 10*3/uL Invalid Interpretation Code [facility] RBC Auto #/vol (Bld) 4.47 10*6/uL Low [place] [facility] WBC Auto #/vol (Bld) 7.28 10*3/uL Invalid Interpretation Code [facility] If not done in the last 30 days Invalid Interpretation Code [facility] Echocardiogram intraop [facility] heriberto lima 02-22-2018 Transesophageal Echocardiogram ____ Patient: [facility] Rec#: [id number] (Age): 1940(77y) Height: 172.7(cm)/67(in Study Date: 02/22/2018 Weight: 71.2(kg)/157(lb Room#: [facility] BSA: 1.84 Type: Loc: Operating Room Sex: M ____ Reading: Ty Mcarthur DO, FAC Referring: Boy Austin MD Referring: CASPER BUSTOS MD Performing: Ty Mcarthur DO, FAC History: Atrial fibrillation. Diagnosis: ICD-10-PCS Unspecified atrial fibrillation (I48.91) Atrial Fibrillation (427.31) CPT Code(s): DOP ECHO COLOR JEOVANNY MIKA MAPG (69835) DOP ECHO COMPL (04206) [facility] R-T IMG 2D W/PRB IMG ACQUISJ IR (19185) Conclusions: 1. A RAYMOND was performed to [...] 02/22/2018 13:11:43 by: Ty Mcarthur DO, FACC, FASE, FSCCT Invalid Interpretation Code [facility] RAD Interface, Rad In [facility] Xper Echopacs - 02/22/2018 1:14 PM EDT Transesophageal Echocardiogram ____ Patient: [facility] Rec#: [id number] (Age): 1940(77y) Height: 172.7(cm)/67(in Study Date: 02/22/2018 Weight: 71.2(kg)/157(lb Room#: [facility] BSA: 1.84 Type: Loc: Operating Room Sex: M ____ Reading: Ty Mcarthur DO, FAC Referring: Boy Austin MD Referring: CASPER BUSTOS MD Performing: Ty Mcarthur DO, FAC History: Atrial fibrillation. Diagnosis: ICD-10-PCS Unspecified atrial fibrillation (I48.91) Atrial Fibrillation (427.31) CPT Code(s): DOP ECHO COLOR JEOVANNY MIKA MAPG (01729) DOP ECHO COMPL (59474) [facility] R-T IMG 2D W/PRB IMG ACQUISJ IR (54954) Conclusions: 1. A RAYMOND was performed to [...] , FACC, MIKHAIL, FSCCT Invalid Interpretation Code [facility] RAD Echocardiogram limitedon Interface, Nii [facility] 02/22/2018 4:19 PM EDT Transthoracic Echocardiogram ____ Patient: [facility] Rec#: [id number] (Age): 1940(77y) Height: 172.72(cm)/67(i Study Date: 02/22/2018 Weight: 72.58(kg)/160(l Room#: 3355 BSA: [id number] Type: Inpatient Loc: CIL Sex: M ____ Reading: Delicia Agudelo MD, PhD, Referring: ALMITA Roto Rooter Operator: Kelvin Putnam [facility], [place] History: Arrhythmia. Atrial fibrillation. Cancer. CVA, history. Hyperlipidemia Hypertension. S/P closure device. 21mm WatchmanTobacco abuse. Diagnosis: ICD-10-PCS Pericardial effusion (noninflammatory) (I31.3) Pericardial effusion (423.9) CPT Code(s): DOP ECHO COLOR JEOVANNY MIKA MAPG (08718) TTE R-T IMG 2D +-M-MODE REC F-UP/LMTD (74096) Study Quality The study quality is fair. [...] Code [facility] Transthoracic Echocardiogram ____ Patient: [facility] Rec#: [id number] (Age): 1940(77y) Height: 172.72(cm)/67(i Study Date: 02/22/2018 Weight: 72.58(kg)/160(l Room#: 3355 BSA: [id number] Type: Inpatient Loc: [facility] Sex: M ____ Reading: Delicia Agudelo MD, PhD, Referring: ALMITA Roto [employer]er Operator: Kelvin Putnam [facility], History: Arrhythmia. Atrial fibrillation. Cancer. CVA, history. Hyperlipidemia Hypertension. S/P closure device. 21mm WatchmanTobacco abuse. Diagnosis: ICD-10-PCS Pericardial effusion (noninflammatory) (I31.3) Pericardial effusion (423.9) CPT Code(s): DOP ECHO COLOR JEOVANNY MIKA MAPG (43574) TTE R-T IMG 2D +-M-MODE REC F-UP/LMTD (87791) Study Quality The study quality is fair. [...] Agudelo MD, PhD, RVT Invalid Interpretation Code [facility] [place] RAD Metabolic Panelon 02-22-2018 Protein mass conc Red Blood Cells Invalid Interpretation Code [facility] Protein mass conc [id number] Invalid Interpretation Code [facility] Otheron 02-22-2018 Blood Type Positive Invalid Interpretation Code [facility] Blood Type Code 6200 Invalid Interpretation Code [facility] Cross Match Compatible Invalid Interpretation Code [facility] Status Info Ready Invalid Interpretation Code [facility] POC INRon 02-22-2018 INR Coag RelTime (Bld) 1.0 {INR} Invalid Interpretation Code [facility] POCT [facility] Interpretation and review of laboratory results Normal Invalid Interpretation Code [facility] POCT LAB Prepare RBC: 2 Unitson 02-22 Unit Number [id number] Invalid Interpretation Code [facility] TRANSFUSION SERVICES Unit Number [id number] Invalid Interpretation Code [facility] Progress Noteon 02-02-2018 HIM IP Note OR Package Center Supervisor Normal [facility] Progress Noteon 01-26-2018 HIM IP Note OR Package Center Supervisor Normal [facility] HIM IP Note OR Package Center Supervisor Normal [facility] CT HEAD WO CONTRASTon 2017 [...] by:VIV Mackayigned by:Kailee Cano MD01/25/18inal result Normal [facility] Progress Noteon 01-25-2018 HIM IP Note OR Package Center Supervisor Normal [facility] Progress Noteon 11-14-2017 HIM IP Note OR Package Center Supervisor Normal [facility] HIM IP Note OR Package Center Supervisor Normal [facility] Vital Signs Date Time Vital Sign Value Performing Clinician Jeffery rondon 09-11-2024 13:57-0400 Body height 172.7 cm Cedric Carr MD Work Phone: [facility] 09-11-2024 13:57-0400 Body mass index (BMI) [Ratio] 23.11 kg/m2 Cedric Carr MD Work Phone: [facility] 09-11-2024 13:57-0400 Body weight 68.95 kg Cedric Carr MD Work Phone: [facility] 05-20-2024 11:26-0500 Body height 172.7 cm Cedric Carr MD Work Phone: [facility] 05-20-2024 11:26-0500 Body mass index (BMI) [Ratio] 23.11 kg/m2 Cedric Carr MD Work Phone: [facility] 05-20-2024 11:26-0500 Body weight 68.95 kg Cedric Carr MD Work Phone: [facility] 05-20-2024 11:26-0500 Diastolic blood pressure 70 mm[Hg] Cedric Carr MD Work Phone: [facility] 05-20-2024 11:26-0500 Heart rate 71 /min Cedric Carr MD Work Phone: [facility] 05-20-2024 11:26-0500 SaO2% (BldA) [Mass fraction] 99 % Cedric Carr MD Work Phone: [facility] 05-20-2024 11:26-0500 Systolic blood pressure 110 mm[Hg] Cedric Carr MD Work Phone: [facility] 07-24-2023 11:54-0500 Body mass index (BMI) [Ratio] 22.96 kg/m2 Cedric Carr MD Work Phone: [facility] 07-24-2023 11:54-0500 Body weight 68.49 kg Cedric Carr MD Work Phone: [facility] 07-24-2023 11:54-0500 Diastolic blood pressure 78 mm[Hg] Cedric Carr MD Work Phone: [facility] 07-24-2023 11:54-0500 Systolic blood pressure 118 mm[Hg] Cedric Carr MD Work Phone: [facility] 03-28-2019 14:02-0400 BP Diastolic 80 mm[Hg] [facility] 03-28-2019 14:02-0400 BP Systolic 170 mm[Hg] [facility] 03-28-2019 13:38-0400 BMI (Body Mass Index) 24.02 kg/m2 [facility] 03-28-2019 13:38-0400 Body Temperature 97.7 [degF] [facility] 03-28-2019 13:38-0400 Body weight 71.67 kg [facility] 03-28-2019 13:38-0400 Pulse (Heart Rate) 53 /min [facility] 03-28-2019 13:38-0400 Pulse Oximetry 100 % [facility] 03-28-2019 13:38-0400 Respiratory Rate 16 /min [facility] 04-06-2018 12:10-0400 BP Diastolic 77 mm[Hg] [facility] 04-06-2018 12:10-0400 BP Systolic 135 mm[Hg] [facility] 04-06-2018 12:10-0400 Pulse (Heart Rate) 44 /min [facility] 04-06-2018 12:10-0400 Pulse Oximetry 96 % [facility] 04-06-2018 12:10-0400 Respiratory Rate 13 /min [facility] 04-06-2018 09:40-0400 BMI (Body Mass Index) 24.33 kg/m2 [facility] 04-06-2018 09:40-0400 Body Temperature 97.59 [degF] [facility] 04-06-2018 09:40-0400 BP Diastolic 86 mm[Hg] [facility] 04-06-2018 09:40-0400 BP Systolic 158 mm[Hg] [facility] 04-06-2018 09:40-0400 Pulse (Heart Rate) 48 /min [facility] 04-06-2018 09:40-0400 Pulse Oximetry 95 % Talisha Bush [facility] 04-06-2018 09:40-0400 Respiratory Rate 16 /min Talisha Bush [facility] 04-06-2018 09:40-0400 Weight 72.58 kg Talisha Bush [facility] 02-22-2018 16:23-0400 BP Diastolic 80 mm[Hg] [facility] 02-22-2018 16:23-0400 BP Systolic 144 mm[Hg] St. [...] (Body Mass Index) 24.33 kg/m2 Boy Austin [facility] 12-26-2017 13:40-0400 Body Temperature 97.59 [degF] Boy Austin [facility] 12-26-2017 13:40-0400 BP Diastolic 83 mm[Hg] Boy Austin [facility] 12-26-2017 13:40-0400 BP Systolic 166 mm[Hg] Boy Austin [facility] 12-26-2017 13:40-0400 Height 172.7 cm Boy Austin [facility] 12-26-2017 13:40-0400 Pulse (Heart Rate) 54 /min Boy Austin [facility] 12-26-2017 13:40-0400 Pulse Oximetry 98 % Boy Austin [facility] 12-26-2017 13:40-0400 Respiratory Rate 16 /min Boy Austin [facility] 07-17-2018 13:40-0400 Weight 72.58 kg Boy Austin [facility] Encounters Encounter Date Encounter Type Care Provider Facility Start: 09-11-2024 End: 09-11-2024 Bamboo carl Carr MD Work Phone: [facility] Start: 09-11-2024 End: 09-11-2024 Bamxiomarao nicholasheet Cedric Carr MD Work Phone: [facility] Start: 09-11-2024 End: 09-11-2024 Office outpatient visit 10 minutes Cedric Carr MD Work Phone: [facility] Comment on above: Laceration of left w rist, subsequent encounter; Encounter for examination following treatment at hospital; Encounter for staple removal Start: 09-11-2024 End: 09-11-2024 ambulatory CEDRIC CARR Not Available Start: 05-20-2024 End: 05-20-2024 Bamboo carl Carr MD Work Phone: [facility] Start: 05-20-2024 End: 05-20-2024 Bamboo carl Carr MD Work Phone: [facility] [...] depression (CMS/HCC) Start: 03-24-2023 End: 03-24-2023 ambulatory [facility] Start: 08-24-2022 End: 08-24-2022 ambulatory UDAY BROWNLEE [facility] Start: 02-03-2022 End: 02-04-2022 ambulatory UDAY BROWNLEE Facility:[facility] Start: 11-10-[address] CEDRIC CARR Facil ity:[facility] Start: 07-22-2021 End: 07-23-[address] CEDRIC CARR Facility:[facility] Start: 07-21-2021 End: 07-22-2021 ambulatory UDAY BROWNLEE Facility:[facility] Start: 10-31-2020 End: 11-03-2020 Evaluation and management of inpatient ENOCH SNEHAL Facility:[facility] Start: 06-26-2020 End: 06-26-2020 Orders Only Leana Mcgrath Work Phone: [facility] Start: 04-30-2020 End: 05-03-2020 Patient encounter procedure KYLE Adam [facility] Start: 04-30-2020 End: 05-02-2020 Subsequent hospital visit by physician [facility] Additional Xray At [facility] Comment on above: Essential hypertensi on; Other hyperlipidemia; Vitamin D deficiency disease; Chronic atrial fibrillation currently in NSR for 3 years on flecainaide Vitamin D deficiency disease; Essential hypertension; Other hyperlipidemia Start: 03-23-2020 End: 03-23-2020 Documentation procedure Jennifer L [facility] Start: 03-23-2020 Patient encounter procedure ANGELA PATEL [facility] Start: 03-13-2020 [facility] Start: 04-16-2019 End: 04-18-2019 Subsequent hospital visit by physician Elda Additional Xray At [facility] Comment on above: Essential hypertensi on Essential hypertensi on; Chronic atrial fibrillation currently in NSR for 3 years on flecainaide; Vitamin D deficiency disease; Other hyperlipidemia Essential hypertensi on; Chronic atrial fibrillation currently in NSR for 3 years on flecainaide Start: 03-28-2019 End: 03-28-2019 Patient [facility] Start: 03-28-2019 End: 03-28-2019 Office outpatient visit 15 minutes Austen Jeff Work Phone: [facility] Comment on above: PAF (paroxysmal atri al fibrillation) (HCC) Start: 09-12-2018 End: 09-12-2018 Documentation procedure Jennifer Foster Dominick [facility] Start: 04-06-2018 End: 04-06-2018 Patient encounter Austen Jeff Work Phone: [facility] Cardiac Non-Invasive Lab Comment on above: PAF (paroxysmal atri al fibrillation) (HCC) Start: 04-06-2018 End: 04-06-2018 Office outpatient visit 15 minutes Cedric Carr Work Phone: [facility] Comment on above: PAF (paroxysmal atri al fibrillation) (HCC); MENDEZ (acute kidney injury) (HCC) Start: 02-22-2018 End: 02-22-2018 Evaluation and management of inpatient Generic [facility] Card[facility] Procedural Care Unit Comment on above: PAF (paroxysmal atri al fibrillation) (HCC); PAF (paroxysmal atrial fibrillation) (HCC) Start: 01-31-2018 Patient encounter Yelena Vasquez [facility] Start: 01-25-2018 End: 01-28-2018 Patient encounter MAEVE CRESTEBAN [facility] Start: 01-03-2018 Patient encounter Alexa Purdy [facility] Start: 12-26-2017 End: 12-26-2017 Office outpatient new 60 minutes Angela Smith Work Phone: [facility] Procedures Date Procedure Procedure Detail Performing Clinician [...] Blood count complete auto&auto difrntl wbc Kyle Jair Bret Work Phone: Start: 04-30-2020 Comprehensive metabolic panel [...] metabolic 2000 panel - Serum or Plasma Juaquinmarysu Messina Ramonayojanaalicia Work Phone: Start: 03-28-2019 Complete blood count with white cell differential, automated Juaquinmarysu Sheaalicia Work Phone: Start: 03-28-2019 Complete blood count with white cell differential, manual Austen Siddharth Sheaalicia Work Phone: Start: 04-06-2018 End: 04-06-2018 Transesophageal echocardiography Austen Sheaalicia Work Phone: Start: 02-22-2018 End: 02-22-2018 Dop echocard color flow velocity mapping Austen Sheaalicia Work Phone: Start: 02-22-2018 End: 02-22-2018 Basic metabolic 2000 panel - Serum or Plasma Juaquinronnie Siddharth Shar Work Phone: Start: 02-22-2018 End: 02-22-2018 Complete blood count (hemogram) panel - Blood by Automated count Casper Bustos Work Phone: Start: 02-22-2018 End: 02-22-2018 LEFT ATRIAL APPENDAGE LIGATION Angela Smith Work Phone: Start: 02-22-2018 End: 02-22-2018 Echo raymond guid tcat icar/vessel structural intvn Boy Guerraubov Work Phone: Start: 02-22-2018 End: 02-22-2018 Blood count complete auto&auto difrntl wbc Maxwel Siddharth Sheat Work Phone: Start: 02-22-2018 End: 02-22-2018 POC INR - RALS Generic [facility] Start: 02-22-2018 End: 02-22-2018 PREPARE RBC [employer] Siddharth Ramonaket t Work Phone: Start: 01-25-2018 Ct head/brain w/o contrast material MAEVE DESOUZA Plan of Treatment Date Care Activity Detail Author Start: 12-23-2025 Tetanus vaccination [facility] Start: 02-10-2025 Influenza vaccination Influenz a Vaccine (Season Ended) [facility] Start: 09-11-2024 End: 09-11-2024 Patient encounter procedure 09/11/2024 2:00 PM EDT Office Visit [facility] [address] [facility] [address] [place] [address] Cedric Carr MD [address] [facility] [address] [place] [address] Encounter for examination following treatment at hospital; [...] Fall, sequela Expected: 05/20/2024 (Approximate), Expires: 05/20/2025 [facility] Work Phone: Comment on above: [...] 02-11-2024 Influenza vaccination Influenza Vacc ine (#1) [facility] Start: 08-02-2023 End: 08-02-2023 ambulatory 08/02/2023 10:00 AM EST Evaluation [facility] [address] [address] Tish Yañez, PT [facility] Start: 07-24-2023 End: 07-24-2023 Patient encounter procedure 07/24/2023 11:30 AM EST Office Visit [facility] [address] [place] [address] Cedric Carr MD [address] [place] [address] Vascular dementia without behavioral disturbance (CMS/HCC); White matter disease; Adult situational stress disorder (CMS/HCC); Moderate major depression (CMS/HCC); Chronic fatigue; Polypharmacy [facility] Comment on above: Vascular dementia wi thout behavioral disturbance (CMS/HCC); White matter disease; Adult situational stress disorder (CMS/HCC); Moderate major depression (CMS/HCC); Chronic fatigue; Polypharmacy Start: 02-10-2023 Influenza vaccination Influenza Vacc ine (#1) [facility] Start: 02-02-2023 Medicare Annual Well ness (AWV) Medicare Annual Wellness (AWV) [facility] Start: 04-30-2021 Creatinine measurement Creatinine mo nitoring [place], [place] Start: 04-30-2021 Lipid panel Lipid screen [place], [place] Start: 04-30-2021 Potassium monitoring Potassium monit [place], [place] Start: 10-29-2020 End: 10-29-2020 Office Visit 10/29/2020 Office Visit Cardiology Kyle Ruth MD [address] [place] [address] [phone] [facility] Start: 04-16-2020 Creatinine measurement Creatinine mo nitoring [place], [place] Start: 04-16-2020 Creatinine monitoring Creatinine mon itoring [place], [place] Start: 04-16-2020 Lipid panel Lipid screen [place], [place] Start: 04-16-2020 Lipid screen Lipid screen [place] Start: 04-16-2020 Potassium monitoring Potassium monit [place], [place] Start: 02-11-2020 Influenza vaccination Flu vaccine (# 1) [place], [place] Start: 02-11-2020 Influenza vaccinatio n given Sequential Influenza Vaccine (#1) [facility] Start: 11-07-2019 End: 11-07-2019 Office Visit 11/07/2019 Office Visit Cardiology Kyle Ruth MD [address] [place] [address] [facility] Start: 07-09-2019 History and physical examination, annual for health maintenance Wellness Visit [facility] Start: 02-10-2019 Influenza vaccination Flu vaccine (# 1) [place], [place] Start: 02-10-2019 Influenza vaccinatio n given SEQUENTIAL INFLUENZA VACCINE (#1) [facility] Start: 12-02-2018 Annual Wellness Visi t (AWV) Annual Wellness Visit (AWV) [place] Start: 04-06-2018 End: 04-06-2018 Ambulatory 04/06/2018 Office Visit Cardiology Austen Jeff, [employer] [address] [place] [address] [phone] [facility] Start: 02-22-2018 Ambulatory [facility] Contract Administration Coordinator Start: 09-01-2018 Influenza vaccination SEQUENTI AL INFLUENZA VACCINE (#1) [facility] Start: 02-10-2018 Influenza vaccinatio n given SEQUENTIAL INFLUENZA VACCINE (#1) [facility] Start: 2004 Fall risk assessment [place] ll Risk Assessment [facility] Start: 2004 Pneumococcal 65+ yea rs Vaccine (1 of 1 - PPSV23) Pneumococcal 65+ years Vaccine (1 of 1 - PPSV23) [place], [place] Start: 2004 Pneumococcal vaccination PNEUM OCOCCAL VACCINE AGE 65+ (1 of 2 - PCV13) [facility] Start: 1999 Zoster vaccine hzv l riccardo for subcutaneous use ZOSTER VACCINE [facility] Start: 1989 Administration of he rpes zoster vaccine ZOSTER VACCINES (1 of 2) [facility] Start: 1989 Shingles Vaccine (1 of 2) Darling gles Vaccine (1 of 2) [place] Start: 1989 ZOSTER VACCINES (1 of 2) ZOSTER VACC ANTON (1 of 2) [facility] Start: 1958 DTaP/Tdap/Td vaccine (1 - Tdap) DTaP/Tdap/Td vaccine (1 - Tdap) [place], [place] Start: 1951 Adolescent depressio n screening assessment Depression Screening (PHQ9) [facility] Start: 1949 Albumin DL <= 20 mg/ L mass conc (U) URINE MICROALBUMIN [facility] Start: 1942 History and physical examination, annual for health maintenance Wellness Visit [facility] Start: 1939 Fall risk assessment Falls Risk Asse ssment [facility] End: 04-06-2019 Basic metabolic 2000 panel Basic Metabolic Panel Routine PAF (paroxysmal atrial fibrillation) ([facility]) 1 Occurrences starting 04/06/2018 until 04/06/2019 [facility] Comment on above: 1 Occurrences starti ng 04/06/2018 until 04/06/2019 Basic metabolic 2000 panel Basic Metabolic Panel Routine PAF (paroxysmal atrial fibrillation) ([facility]) 04/06/2018 10:12 AM EDT [facility] Cardiac catheterization Cardiac Catheterization Routine PAF (paroxysmal atrial fibrillation) ([facility]) 02/22/2018 10:49 AM EDT [facility] EKG 12 Lead [facility], [place] Immunizations Immunization Date Immunization Notes Care Provider Julian moon 06-02-2024 tetanus toxoid, redu rosana diphtheria toxoid, and acellular pertussis vaccine, adsorbed Cedric Carr MD Work Phone: [facility] Work Phone: 07-31-2019 influenza, injectabl e, quadrivalent, preservative free Cedric Carr MD Work Phone: [facility] 07-31-2019 influenza virus vacc ine, unspecified formulation Cedric Carr MD Work Phone: [facility] 03-12-2019 influenza, injectabl e, quadrivalent, preservative free Cedric Carr MD Work Phone: [facility] 08-08-2018 influenza, injectabl e, quadrivalent, preservative free Cedric Carr MD Work Phone: [facility] 03-24-2017 influenza, high dose seasonal, preservative-free Cedric Carr MD Work Phone: [facility] 03-20-2017 influenza, injectabl e, quadrivalent, preservative free Cedric Carr MD Work Phone: [facility] 06-29-2016 influenza, injectabl e, quadrivalent, preservative free Cedric Carr MD Work Phone: [facility] 06-29-2016 influenza, seasonal, injectable, preservative free Cedric Carr MD Work Phone: [facility] 04-25-2016 influenza, injectabl e, quadrivalent, preservative free Cedric Carr MD Work Phone: [facility] 04-25-2016 pneumococcal conjuga te vaccine, 7 valent Cedric Carr MD Work Phone: [facility] 04-25-2016 pneumococcal Conjuga te, unspecified formulation Cedric Carr MD Work Phone: [facility] 12-24-2015 tetanus and diphther ia toxoids, adsorbed, preservative free, for adult use (5 Lf of tetanus toxoid and 2 Lf of diphtheria toxoid) Cedric Carr MD Work Phone: [facility] 05-14-2015 influenza virus vacc ine, unspecified formulation Cedric Carr MD Work Phone: [facility] 04-27-2015 influenza, injectabl e, quadrivalent, preservative free Cedric Carr MD Work Phone: [facility] 02-11-2015 pneumococcal conjuga te vaccine, 13 valent Cedric Carr MD Work Phone: [facility] 05-30-2014 influenza, seasonal, injectable, preservative free Cedric Carr MD Work Phone: [facility] 2013 diphtheria, tetanus toxoids and acellular pertussis vaccine Cedric Carr MD Work Phone: [facility] 2013 influenza virus vacc ine, unspecified formulation Cedric Carr MD Work Phone: [facility] 2013 influenza, injectabl e, quadrivalent, preservative free Cedric Carr MD Work Phone: [facility] 03-24-2010 influenza virus vacc ine, unspecified formulation Cedric Carr MD Work Phone: [facility] 03-24-2010 influenza, injectabl e, quadrivalent, preservative free Cedric Carr MD Work Phone: [facility] 03-24-2009 influenza virus vacc ine, unspecified formulation Cedric Carr MD Work Phone: [facility] 03-24-2009 influenza, injectabl e, quadrivalent, preservative free Cedric Carr MD Work Phone: [facility] 06-24-2008 influenza virus vacc ine, unspecified formulation Cedric Carr MD Work Phone: [facility] 05-20-2005 pneumococcal polysaccharide vaccine, 23 valent Cedric Carr MD Work Phone: [facility] 05-20-2005 pneumococcal vaccine , unspecified formulation Cedric Carr MD Work Phone: [facility] Payers Date Payer Category Payer Private Health Insurance [employer] [employer] [id number] 2022 [facility] [employer] [id number] 2022- [address] [place] [address] [id number] 2019 Unknown [facility] xxxxx xxxx 2019-Present xxxxxxxxx [id number] 2019 Unknown [id number] 2019 Unknown [facility] xxxxx [id number] 2019-Present [id number] 2015 Medicare [id number] 2009 Unknown xxxxxxxxxx [id number] 2009 Unknown [employer] [id number] 2009-Present [id number] 2004 Medicare xxxxxxxxxxx [id number] 2004 Medicare MEDICARE MEDICAR E PART A & B [id number] 2004-Present [place] [id number] 2004 Medicare [id number] 2004 Medicare [id number] 1959 Medicare [id number] 1959 Self-pay 1959 Unknown [id number] 1939 Unknown [id number] .900 1939 Unknown [id number] 2.16.840.1.792334.3.579.2 .900 1939 Unknown [id number] 2.16.840.1.910850.3.579.2 .900 1939 Unknown [id number] 2.16.840.1.573303.3.579.2 .174 1939 Unknown [id number] 2.16.840.1.654926.3.579.2 .174 1939 Unknown [id number] 2.16.840.1.882236.3.579.2 .174 1939 Unknown [id number] 2.16.840.1.333693.3.579.2 .174 1939 Unknown [id number] 2.16.840.1.877486.3.579.2 .647 1939 Unknown [id number] 2.16.840.1.791262.3.579.2 .593 1939 Unknown [id number] 2.16.840.1.320992.3.579.2 .593 1939 Unknown [id number] [id number] .593 1939 Unknown [id number] 2.16.840.1.222649.3.579.2 .593 1939 Unknown [id number] [id number] .1259 1939 Unknown [id number] [id number] .1259 1939 Unknown [id number] .1259 Social History Date Type Detail Facility Start: 12-26-2017 End: 04-16-2019 Tobacco smoking status NHIS Former smoker [facility] End: 06-12-1974 History of tobacco use Current smoker [facility] Start: 1940 Sex Assigned At Not on file [facility] Start: 03-28-2019 End: 04-30-2020 Alcohol intake Current non-drinker of alcohol (finding) [facility] End: 06-12-1971 History of tobacco use [facility] [place] Start: 04-16-2019 End: 09-11-2024 [facility] [place] [place] Start: 03-28-2019 End: 03-06-2023 Tobacco use and exposure Never used [facility] Start: 04-30-2020 End: 09-11-2024 Cigarettes smoked current (pack per day) - Reported [facility] [place] Start: 04-30-2020 Tobacco use and exposure Former user [facility] [place] End: 06-12-1971 History of tobacco use User of smokeless tobacco [place], [place] Start: 03-06-2023 Tobacco smoking stat [facility] Never smoked tobacco [facility] Start: 04-13-2023 End: 09-11-2024 Alcohol intake Ex-drinker (finding) [facility] Start: 03-06-2023 Education 21 [facility] Medical Equipment Procedure Code Equipment Code Equipment Origin al Text Equipment Identifier Dates Closure 6fr Prog lide - [id number] Start: 02-22-2018 Device 21mm Watc hman Sandy Closure - [id number] Start: 02-22-2018 Device Watchman Procedure Sandy Closure - [id number] Start: 02-22-2018 Closure 6fr Prog lide - [id number] Start: 02-22-2018 Device 21mm Watc hman Sandy Closure - [id number] Start: 02-22-2018 Device Watchman Procedure Sandy Closure - [id number] Start: 02-22-2018 Closure 6fr Prog lide - [id number] Start: 02-22-2018 Device 21mm Watc hman Sandy Closure - [id number] Start: 02-22-2018 Device Watchman Procedure Sandy Closure - [id number] Start: 02-22-2018 Closure 6fr Prog lide - [id number] Start: 02-22-2018 Device 21mm Watc hman Sandy Closure - [id number] Start: 02-22-2018 Device Watchman Procedure Sandy Closure - [id number] Start: 02-22-2018 Closure 6fr Prog lide - [id number] Start: 02-22-2018 Device 21mm Watc hman Sandy Closure - [id number] Start: 02-22-2018 Device Watchman Procedure Sandy Closure - [id number] Start: 02-22-2018 Closure 6fr Prog lide - [id number] Start: 02-22-2018 Device 21mm Watc hman Sandy Closure - [id number] Start: 02-22-2018 Device Watchman Procedure Sandy Closure - [id number] Start: 02-22-2018 Functional Status Date Assessment Result Facility 09-11-2024 Patient Health Quest ionnaire 2 item (PHQ-2) [Reported] [facility] Clinical Notes 11-03-2020 to 09-11-2024 Cedric Carr MD - 09/11/2024 2:00 PM Stacy Carr MD - 05/20/2024 11:30 AM ESTTelephone Encounter - Opal Mcconnell - 04/25/2024 1:26 PM Loretta Carr MD - 07/24/2023 11:30 AM EST Note Date & Type Note Facility 09-11-2024 History of Present illness Narrative Images from the original note were not included. Patient ID: Siddharth Hammond is a 84 y.o. male who presents for: ER Follow up, laceration Flowsheet Row Patient Outreach from 09/05/2024 in [facility] with Mel Gann RN Hospital Information ED, Hospital or Intermediate Facility Discharge? ED Patient has been contacted within 2 days of being seen in the ED Yes Diagnosis laceration left wrist Discharge Date 09/03/24 Discharged To: Home Setting Discharge Hospital [facility] Engagement Call Start Time 1052 Admission Date 09/03/24 Medications Discharge medications reviewed and reconciled from hospital? Not applicable Does the patient have all medications ordered at discharge? Not applicable Nursing Interventions No intervention needed Is the patient taking all medications as directed (includes completed medication regime)? Yes Appointments Does the patient have a primary care provider? Yes [/2 at 2 pm] Nursing Interventions Verified appointment date/time/provider Does the patient have any upcoming specialty appointments? No Self Management Does patient have home health? no Patient Teaching Does the patient have access to their discharge instructions? No [spoke to pt's son.] Nursing Interventions Reviewed instructions with patient What is the patient's perception of their health status since discharge? Improving Is the patient/caregiver able to teach back the hierarchy of who to call/visit for symptoms/problems? PCP, Specialist, Home Health nurse, Urgent Care, ED, 911 Yes Wrap Up Wrap Up Additional Comments Pt taken to ER after fall at home. 2 cm Laceration left wrist (Dorsum, ulnar side). 2 rahul to close wound and bandaid applied. Remove in 8-10 days. Scheduled for 09/11 at 2 pm. Test: XRay left wrist. Updated Tetanus. immunization record updated. Call End Time 1108 Review of Systems No pain or paresthesias Objective At the base of the left hand or distal portion of the wrist there is a small laceration with 2 rahul. It is well approximated and healing well. No signs of secondary infection. Cisco removed. Visit Vitals Ht 5' 8 Wt 152 lb BMI 23.11 kg/m Smoking Status Never BSA 1.82 m Allergies Allergen Reactions Lisinopril Other Reaction(s): angiodemia Sulfa Antibiotics Other Reaction(s): Hives Current Outpatient Medications on File Prior to Visit Medication Sig Dispense Refill ALPRAZolam XR 1 MG 24 hr tablet Take 1 tablet (1 mg) by mouth in the morning. 90 tablet 1 amLODIPine (Norvasc) 5 MG tablet Take 1 tablet (5 mg) by mouth Daily 90 tablet 1 escitalopram (Lexapro) 20 MG tablet Take 1 tablet (20 mg) by mouth Daily 90 tablet 1 fexofenadine (Nicole Allergy) 180 MG tablet Take 180 mg by mouth 1 (one) time each day at the same time. losartan (Cozaar) 50 MG tablet Take 1 tablet (50 mg) by mouth Daily 90 tablet 1 Multiple Vitamin (Multi-Vitamin) tablet Take 1 tablet by mouth in the morning. No current facility-administered medications on file prior to visit. 1. Laceration of left wrist, subsequent encounter Healing well. After removal of the rahul local wound care and scar care explained. Follow-up as needed. 2. Encounter for examination following treatment at hospital See above ER documentation 3. Encounter for staple removal Removed without difficulty. documented in this encounter [facility] 05-20-2024 History of Present illness Narrative Images [...] his mother has been placed in the care home. These medications are also cross treating the [...] tablet; Refill: 1 documented in this encounter [facility] 04-25-2024 Telephone encounter Note Appt moved to May 20 [facility] 04-25-2024 Miscellaneous Notes Appt moved to May [...] asking for refills. documented in this encounter [facility] 04-25-2024 Telephone encounter Note Jackeline Monday will not work for his OV because sent 30 days of his xanax on 04/23. Needs to be in May. [facility] 04-24-2024 Telephone encounter Note Full RX sent [facility] 04-24-2024 Telephone encounter Note Denny Lenz called and scheduled his dad for next week. His sister had called for a couple refills but did not get them all. Denny May also is out of Losartan and Amlodepine. He will be out before his appointment on Monday and they are asking for refills. [facility] 07-24-2023 History of Present illness Narrative Patient [...] that his has been placed in a care home he seems to have significantly less agitation [...] reviewed with the patient. [facility] https://www.ncbi.nlm.nih.gov/pmc/ articles/RHR0833830/. 2015; 13: 74. Published online 2014Sep 16. https://www.ncbi.nlm.nih.gov/pubm ed/41017794 The rising tide of polypharmacy and drug-drug interactions: population database analysis 8528-5777 https://www.ncbi.nlm.nih.gov/pmc/ articles/SBF6777542/. 5. Sourav K, Rachelle SW, Yudith M, [...] will decrease dose. documented in this encounter [facility] 03-24-2023 Note [place] Cardiology - [facility] Subjective Siddharth Hammond Sr. 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 Lung granuloma (CMS/HCC) Memory loss Mild cognitive disorder Mild cognitive impairment of uncertain or unknown etiology Moderate major depression (CMS/HCC) Normal body mass index (BMI) Osteoarthritis of spine Partial seizures (CMS/HCC) Personal history of malignant neoplasm of prostate Controlled substance agreement signed Postinflammatory pulmonary fibrosis (CMS/HCC) Primary malignant neoplasm of prostate ([facility]/HCC) Seasonal allergic rhinitis due to pollen Stress due to family tension Stress due to illness of family member Stricture of artery (CMS/HCC) Subdural hematoma ([facility]/HCC) Tortuous aorta ([facility]/HCC) Vascular dementia without behavioral disturbance ([facility]/HCC) Vitamin D deficiency White matter disease No family history on file. Social History Tobacco Use Smoking status: Never Smokeless tobacco: Never Substance Use Topics Alcohol use: Not Currently Drug use: Never MAR Siddharth is seen in follow-up. He is an 82-year-old man with prior history of hypertension, chronic kidney disease, paroxysmal atrial fibrillation status post a watchman procedure in [place] [He is not sure why he needed [...] Center 08-24-2022 Note Renal condition is Stable [facility] 08-24-2022 Note Rate well controlled continue metoprolol, no anticoagulation status post watchman implantation [facility] 08-24-2022 Note Hypertension is Well controlled 136/87 and daughter states blood pressure is even better at home Continue lisinopril, hydralazine and Metoprolol [facility] 08-24-2022 Note No anticoagulation s miguel a post watchman implantation [facility] [...] CARDIOLOGY PROGR ESS NOTE HPI: Siddharth Hammond . is a 82 y.o. male here for Routine follow-up of CAD status post PCI, proximal atrial fib, history of CA, hyperlipidemia, hypertension and CKD Currently denies chest [...] also discussed that given his an acute CA episode in October 2020, he will need [...] Cholesterol 116, HDL 40, triglyceride 94 LDL 57.2-Nhbk-mjxfcjbplb Last lab values have been reviewed CV [...] [facility] Name: Siddharth Hammond Sr Admitted: 10/31/2020 [...] history of bradycardia. He was transferred from [facility] for chest discomfort. Apparently, he was walking outside when he developed chest discomfort, which is unusual for him, described as a pressure in the mid of the chest with no radiation. Initial evaluation in [facility] showed elevated troponins and was sent [...] P/Bar Hathaway MD Date Trans: 11/03/2020 01:59 P/mmo [id number] cc: Cedric Carr M.D. 1 [facility] [id number] Braeden Schaefer M.D. [address] [facility] [facility] [address] [facility] [...] in this encounter [facility] Diagnosis Laceration of left wrist, subsequent encounter Encounter for examination following treatment at hospital Encounter for staple removal documented in this encounter [facility] Assessments [...] Documents on File Type Date Recorded Patient Supervisor Border Department Expl anation Advance Directives and Livin g Will 03/28/2019 1:20 PM Documents on File Type Date Recorded Patient Supervisor Border Department Expl anation Advance Directives and Living Will Power of Functional Tester Latest Code Status on File Code Status Date Activated Date Inactivated Comments Full Code 03/31/2016 9:24 PM 04/11/2016 2:27 PM Full Code 12/26/2015 7:02 PM 12/31/2015 5:47 PM Documents on File Type Date Recorded Patient Supervisor Border Department Expl anation ACP-Advance Directive ACP-Power of Functional Tester Documents on File Type Date Recorded Patient Supervisor Border Department Expl anation ACP-Advance Directive ACP-Power of Functional Tester Latest Code Status on File Code Status Date Activated Date Inactivated Comments Full Code 03/31/2016 9:24 PM 04/11/2016 2:27 PM Full Code 12/26/2015 7:02 PM 12/31/2015 5:47 PM Documents on File Type Date Recorded Patient Supervisor Border Department Expl anation Advance Directives and Living Will Power of Functional Tester Documents on File Type Date Recorded Patient Supervisor Border Department Expl anation Power of Functional Tester 08/28/2023 7:42 AM 05-11 Power Of Functional Tester Advance Directives and Living Will 08/28/2023 7:33 [...] swallowing or have severe throat pain. Call [phone]. A scratchy throat liz normal side effect [...] through Care Everywhere. * ECHOCARDIOGRAM: TRANSESOPHAGEAL: POST-OP (SWISS) in this encounter History of Present Illness * Jennifer Tan, RN - 09/12/2018 8:20 AM EDT Office notes and lab results routed to PCP and gate clerk. in this encounter* Jennifer Tan RN - 09/12/2018 3:46 PM EDT Spoke with pt's son Meño and let him be aware of Siddharth' creatine level. Angela Osorio TECHNOLOGY COORDINATOR would like him to follow up with [...] in to see him. Labs drawn Modified Jackson Scale and The Holli Index were provided [...] constant nursing care and attention Siddharth's Modified Jackson scale is 0 based on no remaining [...] BUTTERFIELD, Steve Salvador. Functional evaluation:the Holli Index. [place] [employer] Journal 1965;14:51-61.Used with permission. * Austen Jeff CNP - 03/28/2019 1:46 PM EDT [facility] Patient Name: Siddharth Hammond MR #: [id number] : 1940 Physicians: Cedric Carr MD (Family) [...] SANDY closure with WATCHMAN Per history with [id number]-[id number] score of 3 and HAS-BLED score of [...] use any assistive devices for ambulation. Primary gate clerk: Dr. Ruth and PCP: Dr. Carr History: [...] or Bharath; Surgeon: Boy Austin MD; Location: [facility] ENTRY LEVEL ACCOUNT REPRESENTATIVE; Service: Cardiovascular HERNIA REPAIR 1989 PROSTATE SURGERY [...] file Gets together: Not on file Attends christianity service: Not on file Active member of [...] appropriate mood and affect. Siddharth Jeff, MS, FARE COLLECTOR-JET SKI MECHANIC Structural Heart Nurse Practitioner [facility]: 03/28/2019 1:46 PM documented in this encounter* Jennifer Tan RN - 03/23/2020 10:07 AM EDT Labs received from [facility] and scanned into system. documented in this encounter Reason for Referral Status Reason Specialty Diagnoses / Procedures Referre d By Contact Referred To Contact [facility] Cardiology Diagnoses Essential hypertension Other hyperlipidemia Vitamin D deficiency disease Chronic atrial fibrillation (HCC) Procedures EKG 12 Lead Kyle Ruth MD [address] [place] [address] Status Reason Specialty Diagnoses / Procedures Referre d By Contact Referred To Contact [facility] Diagnoses Essential hypertension Chronic atrial fibrillation Procedures EKG 12 Lead Kyle Ruth MD [address] [place] [address] Specialty Diagnoses / Procedures Referred By Contac t Referred To Contact Physical Therapy Diagnoses Generalized weakness At risk for falling Procedures WI OFFICE/OUTPATIENT NEW HIGH MDM 60 MINUTES Cedric Carr MD [address] [place] [address] Tish Yañez PT Referral ID Status Reason Start Date Expiration Date Visits Requested Visits Authorized [id number] Authorized Specialty Services Required 07/24/2023 01/20/2024 10 10 Additional Source Comments (unrecognized sect ion and content) No Status Records FoundNo Status Records FoundNo Status Records FoundNo Status Records FoundNo Status Records FoundNo Status Records FoundNo Status Records FoundNo Status Records Found INFORMATION SOURCE (unrecogn ized section and content) DATE CREATED AUTHOR 01/28/2018 [facility] DATE CREATED AUTHOR AUTHOR'S ORGANIZ ATION 02/07/2018 [facility] DATE CREATED AUTHOR AUTHOR'S ORGANIZ ATION 03/23/2020 [facility] DATE CREATED AUTHOR AUTHOR'S ORGANIZ ATION 05/02/2020 [facility] DATE CREATED AUTHOR AUTHOR'S ORGANIZ ATION 11/06/2020 [facility] DATE CREATED AUTHOR AUTHOR'S ORGANIZ ATION 02/05/2022 [facility] DATE CREATED AUTHOR AUTHOR'S ORGANIZ ATION 03/26/2023 [facility] DATE CREATED AUTHOR AUTHOR'S ORGANIZ ATION 09/14/2024 [facility] dical Specialists JANNET Bustos, Casper Leblanc MD - 02/22/2018 9:22 AM Austen Bean CNP - 02/21/2018 3:56 PM EDT H&P Notes (unrecognized sect ion and content) INTERVAL HISTORY AND PHYSICAL Patient Name: Siddharth Hammond Sr. Admit Date: [id number] MR #: [id number] : 1940 The H&P has been reviewed [...] Patient Name: Siddharth Hammond Sr. MR #: [id number] : 1940 Physicians: Cedric Carr MD (Family); No ref. provider found (Referring) Perpetual Assessment: iSddharth Hammond Sr. is a 77 y.o. male with a past medical history significant for paroxysmal atrial fibrillation, hypertension, hyperlipidemia and bilateral subdural hematomas s/p burrhole drainage/Left craniotomy in 2016 at [facility] who presented to the structural heart clinic [...] with independent non-interventional physician: Dr. Thomson - Mcfp anticoagulation is indicated as evidenced by a [id number] score of 3. - Increased risk for bleeding as evidenced by a HAS-BLED score of 3 - Discussed R/B/A of left atrial appendage closure with WATCHMAN as an alternative to mcc anticoagulation. - Patient prefers general anesthesia Watchman [...] by physicians that have received the recommended instrument setter training and have met the minimum qualifications [...] hematomas s/p burrhole drainage in 2015 at [facility] who presented to the structural heart clinic from home for WATCHMAN evaluation. History obtained per patient and his son. The patient reported a longstanding history of atrial fibrillation and previously followed with Dr. Olivas (EP) at [facility]. He underwent successful cardioversion in 2011 and was on Coumadin until 12/2015 when he sustained spontaneous bilateral subdural hematomas. No traumatic injury per patient but he was doing some renovations on a house in the 90 degree heat lifting heavy items per son. He was admitted to [facility] at that time and underwent bilateral burrhole drainage per Dr. Joshi (neurosurgery). He had recurrent bleeding 03/2016 and was again hospitalized and underwent Left frontal craniotomy and drainage of subdural hematoma with drain placement. Pt reports that he has followed up with his neurosurgeon in [place] and he has been given the go ahead to resume Eliquis for this procedure. He was referred per his primary gate clerk (Dr. Thomson) to the structural heart clinic [...] Classification: STROKE AND BLEEDING RISK SCORING SYSTEMS [id number] THOMAS-BLED score RISK FACTOR SCORE PRESENT RISK [...] disease (previous 1 E Elderly 1 yes CA, arterial disease or no D Drugs 1 [...] appropriate mood and affect. Siddharth Jeff, MS, FARE COLLECTOR-JET SKI MECHANIC Structural Heart Nurse Practitioner Structural [facility] Clinic: [...] (paroxysmal atrial fibrillation) (HCC) Per history with [id number] score of 3 and HAS-BLED score of [...] Siddharth Hammond Admit Date: 04/06/2018 MR #: [id number] : 1940 The H&P has been reviewed [...] addressed prior to signing the consent form. oJey Fischer MD 04/06/18 11:25 AM in this encounter Reason for Visit (unrecogniz ed section and content) Reason Comments Heart Problem 1 year s/p Watchman Reason Comments Anxiety Reason Comments Follow-up Care Teams (unrecognized sec tion and content) Tire Rebuilder Relationship Specialty Start Date End Date Cedric Carr MD [address] [place] [address] PCP - General Family Medicine 10/18/22 Cedric Carr MD [address] [place] [address] PCP - ACO Reach 03/11/23 Tire Rebuilder Relationship Specialty Start Date End Date Cedric Carr MD [address] [place] [address] PCP - General Family Medicine 10/18/22 Cedric Carr MD [address] [place] [address] (Fax) PCP - ACO Reach 03/11/23 Tire Rebuilder Relationship Specialty Start Date End Date Cedric Carr MD [address] [place] [address] (Fax) PCP - General Family Medicine 10/18/22 Cedric Carr MD [address] [place] [address] (Fax) PCP - ACO Reach 03/11/23 Tire Rebuilder Relationship Specialty Start Date End Date Cedric Carr MD [address] [place] [phone] (Fax) PCP - General Family Medicine 10/18/22 Cedric Carr MD [address] [place] [phone] (Fax) PCP - ACO Reach 03/11/23 Tire Rebuilder Relationship Specialty Start Date End Date Cedric Carr MD [address] [place] [phone] (Fax) PCP - General Family Medicine 10/18/22 Cedric Carr MD [address] [place] [address] (Fax) PCP - ACO Reach 03/11/23 Tire Rebuilder Relationship Specialty Start Date End Date Cedric Carr MD [address] [place] [address] (Fax) PCP - General Family Medicine 10/18/22 Cedric Carr MD [address] [place] [address] PCP - ACO Reach 03/11/23 FOR RECORDS [...] BE BASED ON THE PRIMARY CLINICAL RECORDS. [facility] [employer] [facility]. provides no warranty or guarantee of the accuracy or completeness of information in this document.
--- NOTE | 2024-10-22 19:46 | ED.GENADUL1 ---
Documented by User: Wyatt Corrigan NP 10/22/24 22:01 HPI HPI - General Adult General Chief complaint: Fall Stated complaint: FALL Time Seen by Provider: 10/22/24 19:44 Source: patient and family Mode of arrival: Wheelchair History of Present Illness HPI narrative: The patient is a 84-year-old male who presents to the emergency department today for evaluation of concerns for injuries following a fall. Patient with a significant history of dementia and history is somewhat limited provided by him however he does live with family where family states he was on a monitor in the home where they noticed he seemed to have tripped over his feet and fallen. Does not believe that he had any LOC. Historically he is not on any anticoagulant medications. Family states they did give him some Tylenol because he complained of pain to his back however were concerned that the pain was ongoing despite taking Tylenol. Patient denies any saddle anesthesia. No concerns for bowel or bladder function. Patient has been ambulatory and denies any paresthesias, weakness, loss of movement to extremities. He denies any head/neck/upper back pain otherwise. He denies any abdominal pain or nausea/vomiting. Related Data Home Medications ?Medication ?Instructions ?Recorded ?Confirmed alprazolam 1 mg tablet,extended 1 mg PO QAM 08/16/23 09/18/24 release 24 hr aspirin 81 mg tablet,delayed 81 mg PO DAILY 08/16/23 09/18/24 release donepezil 10 mg tablet 20 mg PO .QHS 08/16/23 08/24/23 aripiprazole 5 mg tablet 2.5 mg PO .QHS 08/23/23 08/24/23 amlodipine 5 mg tablet 5 mg PO DAILY 06/02/24 09/18/24 escitalopram oxalate 20 mg tablet 20 mg PO DAILY 06/02/24 09/18/24 losartan 50 mg tablet 50 mg PO DAILY 06/02/24 09/18/24 Allergies Allergy/AdvReac Type Severity Reaction Status Date / Time Sulfa (Sulfonamide Allergy Mild Unknown Verified 09/03/24 14:04 Antibiotics) Opioid HPI Opioid Management Most Recent Opioid Data: Last Pain Scale 6 Today, 19:35 Last ORT Total Score 0 08/23/23, 20:06 Last ORT Risk Category Low Risk 08/23/23, 20:06 Review of Systems ROS Status of ROS 10 or more systems reviewed and unremarkable except as noted in history and below [facility] Medical History Dementia ?F03.90 - Unspecified dementia, unspecified severity, without behavioral disturbance, psychotic disturbance, mood disturbance, and anxiety (ICD-10) Pre-syncope ?R55 - Syncope and collapse (ICD-10) Multiple falls ?R29.6 - Repeated falls (ICD-10) Syncope ?R55 - Syncope and collapse (ICD-10) Generalized weakness ?R53.1 - Weakness (ICD-10) Myocardial infarct ?I21.9 - Acute myocardial infarction, unspecified (ICD-10) Hypertension ?I10 - Essential (primary) hypertension (ICD-10) Brain bleed ?I61.9 - Nontraumatic intracerebral hemorrhage, unspecified (ICD-10) Presence of Watchman left atrial appendage closure device ?Z95.818 - Presence of other cardiac implants and grafts (ICD-10) A-fib ?I48.91 - Unspecified atrial fibrillation (ICD-10) Prostate cancer ?C61 - Malignant neoplasm of prostate (ICD-10) Family History Other Family history of cancer Social History Within the past year, how often did you have a drink containing alcohol: never Within the past year, how many standard drinks containing alcohol did you have on a typical day: 1 or 2 Within the past year, how often did you have six or more drinks on one occasion: never Total score: 0 Score interpretation: A score less than 4 is consistent with normal alcohol consumption. Smoking status: Former smoker Non-prescribed substance use: denies use Highest level of school completed/degree received: some college, no degree Little interest or pleasure in doing things: not at all Feeling down, depressed, or hopeless: not at all Gender Identity: female Exam Narrative Exam Narrative: Constituational: Awake/ alert, no apparent distress, well hydrated HENMT: normocephalic, external ears normal, moist oral mucous membranes and oropharynx normal Eyes: Normal external ears and conjunctivae normal Neck: ROM intact Chest: inspection of chest normal Respiratory: Normal respiratory effort, clear to auscultation bilaterally Cardio: regular rate and regular rhythm GI: soft to palpation and non-tender Back: + Paravertebral lumbar discomfort without surrounding edema, ecchymosis, crepitus, deformity. MSK: Hips stable, normal inspection of B/L LE and UE, +NVI Skin: no rashes or petechiae Neuro: no focal deficits Psych: mental status grossly normal Constitutional Vital Signs, click to edit/add: Last Vital Signs Temp 97.5 F L 10/22/24 19:37 Pulse 87 10/22/24 22:21 Resp 14 10/22/24 22:21 BP 139/103 H 10/22/24 22:21 Pulse Ox 93 L 10/22/24 22:21 O2 Del Method Room Air 10/22/24 22:21 Course Vital Signs Vital signs: Vital Signs Temperature 97.5 F L 10/22/24 19:37 Pulse Rate 85 10/22/24 19:37 Respiratory Rate 18 10/22/24 19:37 Blood Pressure 142/113 H 10/22/24 19:37 Pulse Oximetry 93 L 10/22/24 19:37 Oxygen Delivery Method Room Air 10/22/24 19:37 Temperature 97.5 F L 10/22/24 19:37 Pulse Rate 87 10/22/24 22:21 Respiratory Rate 14 10/22/24 22:21 Blood Pressure 139/103 H 10/22/24 22:21 Pulse Oximetry 93 L 10/22/24 22:21 Oxygen Delivery Method Room Air 10/22/24 22:21 Medical Decision Making MDM Narrative Medical decision making narrative: Patient is an overall well-appearing 84-year-old male who presented to the emergency department today for evaluation concerns for back pain following a reported mechanical fall around 4 PM this evening. Initial examination and vital signs overall stable with exception to reported pain mostly to the lumbar region of the back. Otherwise no concerning neurovascular motor findings on exam. Patient's family did witness the fall on a monitored camera in the room as patient does have a history of dementia and historically there did not appear to be any LOC or head injury. Patient is neurologically at his baseline per the family. CT imaging of head, cervical spine, lumbar spine is pending. Care endorsed to oncoming provider Dr. Sifuentes 22:00p to follow-up on pending imaging results and further determine disposition of patient. Medical Records Medical records reviewed: Yes I reviewed the patient's medical records Discharge Plan Discharge Chief Complaint: Fall Clinical Impression: Fall, Back pain, Compression fracture Patient Disposition: [facility] Documented by User: Too Sifuentes MD 10/22/24 23:53 HPI HPI - General Adult General Chief complaint: Fall Stated complaint: FALL Time Seen by Provider: 10/22/24 19:44 Related Data Home Medications ?Medication ?Instructions ?Recorded ?Confirmed alprazolam 1 mg tablet,extended 1 mg PO QAM 08/16/23 09/18/24 release 24 hr aspirin 81 mg tablet,delayed 81 mg PO DAILY 08/16/23 09/18/24 release donepezil 10 mg tablet 20 mg PO .QHS 08/16/23 08/24/23 aripiprazole 5 mg tablet 2.5 mg PO .QHS 08/23/23 08/24/23 amlodipine 5 mg tablet 5 mg PO DAILY 06/02/24 09/18/24 escitalopram oxalate 20 mg tablet 20 mg PO DAILY 06/02/24 09/18/24 losartan 50 mg tablet 50 mg PO DAILY 06/02/24 09/18/24 Allergies Allergy/AdvReac Type Severity Reaction Status Date / Time Sulfa (Sulfonamide Allergy Mild Unknown Verified 09/03/24 14:04 Antibiotics) Opioid HPI Opioid Management Most Recent Opioid Data: Last Pain Scale 6 Today, 19:35 Last ORT Total Score 0 08/23/23, 20:06 Last ORT Risk Category Low Risk 08/23/23, 20:06 [facility] Medical History Dementia ?F03.90 - Unspecified dementia, unspecified severity, without behavioral disturbance, psychotic disturbance, mood disturbance, and anxiety (ICD-10) Pre-syncope ?R55 - Syncope and collapse (ICD-10) Multiple falls ?R29.6 - Repeated falls (ICD-10) Syncope ?R55 - Syncope and collapse (ICD-10) Generalized weakness ?R53.1 - Weakness (ICD-10) Myocardial infarct ?I21.9 - Acute myocardial infarction, unspecified (ICD-10) Hypertension ?I10 - Essential (primary) hypertension (ICD-10) Brain bleed ?I61.9 - Nontraumatic intracerebral hemorrhage, unspecified (ICD-10) Presence of Watchman left atrial appendage closure device ?Z95.818 - Presence of other cardiac implants and grafts (ICD-10) A-fib ?I48.91 - Unspecified atrial fibrillation (ICD-10) Prostate cancer ?C61 - Malignant neoplasm of prostate (ICD-10) Family History Other Family history of cancer Social History Within the past year, how often did you have a drink containing alcohol: never Within the past year, how many standard drinks containing alcohol did you have on a typical day: 1 or 2 Within the past year, how often did you have six or more drinks on one occasion: never Total score: 0 Score interpretation: A score less than 4 is consistent with normal alcohol consumption. Smoking status: Former smoker Non-prescribed substance use: denies use Highest level of school completed/degree received: some college, no degree Little interest or pleasure in doing things: not at all Feeling down, depressed, or hopeless: not at all Gender Identity: female Exam Constitutional Vital Signs, click to edit/add: Last Vital Signs Temp 97.5 F L 10/22/24 19:37 Pulse 87 10/22/24 22:21 Resp 14 10/22/24 22:21 BP 139/103 H 10/22/24 22:21 Pulse Ox 93 L 10/22/24 22:21 O2 Del Method Room Air 10/22/24 22:21 Course Vital Signs Vital signs: Vital Signs Temperature 97.5 F L 10/22/24 19:37 Pulse Rate 85 10/22/24 19:37 Respiratory Rate 18 10/22/24 19:37 Blood Pressure 142/113 H 10/22/24 19:37 Pulse Oximetry 93 L 10/22/24 19:37 Oxygen Delivery Method Room Air 10/22/24 19:37 Temperature 97.5 F L 10/22/24 19:37 Pulse Rate 87 10/22/24 22:21 Respiratory Rate 14 10/22/24 22:21 Blood Pressure 139/103 H 10/22/24 22:21 Pulse Oximetry 93 L 10/22/24 22:21 Oxygen Delivery Method Room Air 10/22/24 22:21 Medical Decision Making MDM Narrative Medical decision making narrative: Patient is an overall well-appearing 84-year-old male who presented to the emergency department today for evaluation concerns for back pain following a reported mechanical fall around 4 PM this evening. Initial examination and vital signs overall stable with exception to reported pain mostly to the lumbar region of the back. Otherwise no concerning neurovascular motor findings on exam. Patient's family did witness the fall on a monitored camera in the room as patient does have a history of dementia and historically there did not appear to be any LOC or head injury. Patient is neurologically at his baseline per the family. CT imaging of head, cervical spine, lumbar spine is pending. Care endorsed to oncoming provider Dr. Sifuentes 22:00p to follow-up on pending imaging results and further determine disposition of patient. CT report returned and CT brain and C-spine without acute findings. Does have compression fractures of L2 and L5. Discussed with Trauma surgeon Dr Vail at [facility] and he recommends transfer to the Trauma center. Family informed Discharge Plan Discharge Chief Complaint: Fall Clinical Impression: Fall, Back pain, Compression fracture Patient Disposition: [facility]
[2024-10-22 22:21] VITALS: BP 139/103; PULSE 87; O2SAT 93
[2024-10-22] MEDS: MORPHINE SULFATE 2 MG/ML SYRINGE IV (22:48)
[2024-10-23 00:26] VITALS: BP 158/100; PULSE 90; O2SAT 91
[2024-10-23] MEDS: MORPHINE SULFATE 2 MG/ML SYRINGE IV (00:42)
[2024-10-23 01:04] VITALS: BP 138/83; PULSE 88; O2SAT 94
== END 2024-10-23 01:06 | disposition short-term general hospital (02) ==
PROVIDERS: Emergency Provider Internal Medicine; PCP Family Medicine
DX: S32.028A Other fracture of second lumbar vertebra, initial encounter for closed fracture (principal); S32.058A Other fracture of fifth lumbar vertebra, initial encounter for closed fracture; W01.0XXA Fall on same level from slipping, tripping and stumbling without subsequent striking against object, initial encounter; F03.90 Unspecified dementia, unspecified severity, without behavioral disturbance, psychotic disturbance, mood disturbance, and anxiety; Z87.891 Personal history of nicotine dependence
CPT/HCPCS: 70450; 72125; 72131; 96374; 96376; 99284; J2270

== ENCOUNTER 2025-05-12 15:39 | Emergency (ER) | payer MEDICARE, OTHER, SELFPAY ==
[2025-05-12 15:45] VITALS: BP 167/114; PULSE 74; TEMP 36.5; O2SAT 97; BMI 23.6
--- NOTE | 2025-05-12 15:54 | XR_ITS ---
The [address] [address] Patient Name: NETTE CAO MRN: [id number] date: 1940 Sex: M Assigned Patient Location: ED.MAIN Current Patient Location: ED.MAIN Accession/Order Number: [id number] Exam Date: 05/12/2025 16:18 Report Date: 05/12/2025 17:14 At the request of: RONN SANTORO MD Procedure: XR chest 1V PA CHEST: CLINICAL HISTORY: sob COMPARISON: 09/18/2024 Mildly enlarged cardiomediastinal silhouette. Visualized lungs are clear. No effusion or pneumothorax. XR/XR chest 1V IMPRESSION: Negative for acute pleural-parenchymal disease. Impression dictated by: Douglas Escalona M.D. 05/12/2025 5:14 PM Dictation Location: [place] [address] Electronically authenticated by: [id number] Y Date: 05/12/2025 17:14
--- OUTSIDE RECORDS SUMMARY | 2025-05-12 15:58 | XMS_ITS | Clinical Summary ---
Author Organization [employer] tem Address [id number] [address] [place] [address] Care Team Providers Care School Librarian Name Role Phone Cedric Rodriguez MD Primary Care Provider + [phone] Allergies Active AllergyReactionsCriticalityNoted DateCommentsLisinoprilOther (See Comments)04/23/2020 Other Reaction(s): angiodemia Sulfa (Sulfonamide Antibiotics)Rash,NrywihajgkeHgmc20/16/2016 Other Reaction(s): Hives Medications MedicationSigDispense QuantityRefillsLast FilledStart DateEnd DateStatus aspirin 81 mg Take 1 tablet (81 mg total) by mouth in the morning.Active cetirizine (ZyrTEC) 5 mg tablet Take 1 tablet (5 mg total) by mouth in the morning.Active hydrOXYzine (ATARAX) 25 mg tablet Take 1 tablet (25 mg total) by mouth every 8 (eight) hours as needed for anxiety.Active acetaminophen (TYLENOL EXTRA STRENGTH) 500 mg tablet Take 2 tablets (1,000 mg total) by mouth in the morning.Active methocarbamoL (ROBAXIN) 500 mg tablet Take 1 tablet (500 mg total) by mouth in the morning and 1 tablet (500 mg total) at noon and 1 tablet (500 mg total) in the evening and 1 tablet (500 mg total) before bedtime. 120 tablet 5Active sennosides-docusate sodium (SENOKOT-S) 8.6-50 mg Take 2 tablets by mouth nightly. 7 tablet 5Active Active Problems ProblemNoted DateDiagnosed DateLumbar compression mvesafrf97/14/2025 Immunizations No known immunizations Social History Tobacco UseTypesPacks/DayYears UsedDateSmoking Tobacco: FormerCigarettes Smokeless Tobacco: Never Tobacco Cessation:Counseling Given: Not Answered Alcohol UseStandard Drinks/WeekCommentsNot Currently0 (1 standard drink = 0.6 oz pure alcohol)[facility] UtilitiesAnswerDate RecordedIn the past 12 months has the electric, gas, oil, or water company threatened to shut off services in your home?No10/23/2024UDIT-CAnswerDate RecordedQ1: How often do you have a drink containing alcohol?Never10/23/2024Q2: How many drinks containing alcohol do you have on a typical day when you are drinking?Patient does not drink10/23/2024Q3: How often do you have six or more drinks on one occasion?Never10/23/2024PHQ-2 AnswerDate RecordedTotal Msalw615PRAPARE - TransportationAnswerDate RecordedIn the past 12 months, has lack of transportation kept you from medical appointments or from getting medications?No10/23/2024In the past 12 months, has lack of transportation kept you from meetings, work, or from getting things needed for daily living?No10/23/2024Housing InstabilityAnswerDate RecordedAre you worried or concerned that in the next two months you may not have stable housing that you own, rent or stay in as a part of a household?No10/23/2024 Hunger ScreeningAnswerDate RecordedWithin the past 12 months we worried whether our food would run out before we got money to buy more.Never True10/23/2024 Within the past 12 months the food we bought just didn't last and we didn't have money to get more.Never True10/23/2024Sex and Gender InformationValueDate RecordedSex Assigned at BirthNot on fileLegal DmvEhvo3310/22/2024 11:44 PM EDT Gender IdentityNot on fileSexual OrientationNot on file Last Filed Vital Signs Vital SignReadingTime TakenCommentsBlood Ybhruntt125/85010/26/2024 11:06 AM EDT Ulqow469910/26/2024 3:30 AM DSCDmqpleoxzqc75.6 ??C (97.9 ??F)10/26/2024 11:06 AM EDTRespiratory Ndsn870810/26/2024 3:30 AM EDTOxygen Ziafbqukak58%10/26/2024 3:30 AM EDTInhaled Oxygen Concentration--Sylmoa21.6 kg (188 lb 11.4 oz)10/23/2024 8:02 AM UQIVqqivc560.2 cm (5' 7 )10/23/2024 8:02 AM EDTBody Mass Index29.56 10/23/2024 8:02 AM EDT Plan of Treatment Health MaintenanceDue DateLast DoneCommentsZoster (Shingles) Vaccine (1 of 2) 1989Fall Risk Visvfizxp98/09/2005RSV ( or age 60+ yrs) (1 - 1-dose 75+ series)2014Influenza Lixteor21, 03/12/2019, 08/08/2018, Additional history existsDepression Ivjxcszze98 Tobacco Dvfsyyvdm66DTaP,Tdap and Td Vaccines (4 - Td or Tdap) , 12/24/2015, 2013 Goals GoalPatient Goal TypeAssociated ProblemsRecent ProgressPatient-Stated?Author safe discharge Corinne Perez LSW Note: Evaluation of progress towards goal: SNF list provided. Medical Devices Not on file Insurance Care Teams Team MemberRelationshipSpecialtyStart DateEnd Date Cedric Rodriguez MD [address] [address] [facility]
--- OUTSIDE RECORDS SUMMARY | 2025-05-12 15:59 | XMS_ITS | Clinical Summary ---
Author Organization [facility] Address [address], [address] [place] [address] Care Team Providers Care Cigar Bander Hand Name Role Phone Cedric Rodriguez MD Primary Care Provider + [phone] Allergies Active AllergyReactionsCriticalityNoted DateCommentsAmino Acids04/30/2020 LisinoprilOther (See Comments)04/23/2020Sulfa AntibioticsAnaphylaxisHigh 12/26/2015 Medications MedicationSigDispense QuantityRefillsLast FilledStart DateEnd DateStatus hydrochlorothiazide (HYDRODIURIL) 25 MG tablet Take 25 mg by mouth dailyActive flecainide (TAMBOCOR) 100 MG tablet Take 100 mg by mouth 2 times dailyActive vitamin D3 (CHOLECALCIFEROL) 400 UNITS TABS tablet Take 2,000 Units by mouth dailyActive MULTIPLE VITAMIN PO Take 1 tablet by mouth dailyActive fenofibrate (TRICOR) 48 MG tablet Take 48 mg by mouthActive aspirin 81 MG EC tablet Take 81 mg by mouth dailyActive atorvastatin (LIPITOR) 20 MG tablet Take 20 mg by mouth dailyActive amLODIPine (NORVASC) 5 MG tablet TAKE ONE TABLET BY MOUTH ONCE DAILY 90 tablet Active mirtazapine (REMERON) 15 MG tablet Take 15 mg by mouth nightlyActive hydrOXYzine (ATARAX) 10 MG tablet Take 10 mg by mouth 2 times dailyActive Donepezil HCl (ARICEPT) 23 MG TABS tablet Take 23 mg by mouth nightlyActive ALPRAZolam (XANAX XR) 1 MG extended release tablet TAKE ONE TABLET BY MOUTH ONCE DAILY IN THE MORNING FOR 30 DAYS1Active Active Problems ProblemNoted DateDiagnosed DateSubdural vmcgvnow18/22/2016Partial seizures 04/02/2016Hypertensive ywyehdhqn24/20/2016Chronic atrial fibrillation currently in [facility]R for 3 years on afunmvkgbxn44/16/9057Adlewknvikk94/16/2016Essential redihlrffmyf15/16/2016HLD (hyperlipidemia)12/26/2015Creatinine elevation 12/26/2015Cerebrovascular accident (CVA) Resolved Problems ProblemNoted DateDiagnosed DateResolved DateSubdural bircwahx37/16/2016 09/03/2019 Family History Medical HistoryRelationNameCommentsCancerFatherAlzheimer's DiseaseMother HypertensionMotherRelationNameStatusCommentsBrother 1AliveBrother 2AliveFather (Age 71)cancerMotherDeceased (Age 92)old age Social History Tobacco UseTypesPacks/DayYears UsedDateSmoking Tobacco: FormerCigarettes0.513 06/12/1958 - 06/12/1971Smokeless Tobacco: FormerQuit: 06/12/1971Alcohol Use Standard Drinks/WeekCommentsNo0 (1 standard drink = 0.6 oz pure alcohol)Sex and Gender InformationValueDate RecordedSex Assigned at BirthNot on fileLegal Sex Male12/26/2015 2:37 PM EDTGender IdentityNot on fileSexual OrientationNot on file Last Filed Vital Signs Vital SignReadingTime TakenCommentsBlood Hilbplng231/8005 1:47 PM EDT Nhowu659210/29/2020 1:45 PM PHQKjmfxwrvsyz15.8 ??C (98.3 ??F)04/26/2016 11:32 AM ESTRespiratory Iayi412202/01/2018 10:26 AM EDTOxygen Tqdpmkckov02%10/29/2020 1:45 PM EDTInhaled Oxygen Concentration--Hsyimw14.8 kg (165 lb)10/29/2020 1:45 PM EDT Qweoco815.7 cm (5' 8 )04/30/2020 10:58 AM ESTBody Mass Index25.0904/30/2020 10:58 AM EST Plan of Treatment Not on file Insurance Advance Directives * Full Code (Latest Code Status on File) Date ActivatedDate TnglxmgoucqHpnuxyzz72/20/2016 9:24 PM10 2:27 PM * Full Code Date ActivatedDate InactivatedComments12/26/2015 7:02 PM12/31/2015 5:47 PM Care Teams Team MemberRelationshipSpecialtyStart DateEnd Date Cedric Rodriguez MD [facility]01/12/16
--- OUTSIDE RECORDS SUMMARY | 2025-05-12 15:59 | XMS_ITS | Clinical Summary ---
Author Organization [facility] Address [facility] access hospital[address] [place] [address] Care Team Providers Care News Library Director Name Role Phone Cedric Rodriguez MD Primary Care Provider + [phone] Mohamud Queen MD Unavailable [phone] Ned Matamoros MD Unavailable [phone] Allergies Active AllergyReactionsCriticalityNoted DateCommentsSulfa (Sulfonamide Antibiotics)XcwrlvfabifSnmc05/28/2018 Medications MedicationSigDispense QuantityRefillsLast FilledStart DateEnd DateStatus atorvastatin (LIPITOR) 10 MG tablet Take 20 mg by mouth daily .Active flecainide (TAMBOCOR) 100 MG tablet Take 100 mg by mouth 2 (two) times a day.Active hydroCHLOROthiazide (MICROZIDE) 12.5 mg capsule Take 25 mg by mouth daily .Active lisinopril (PRINIVIL,ZESTRIL) 20 MG tablet Take 40 mg by mouth daily .Active multivitamin (multivitamin) per tablet Take 1 tablet by mouth daily.Active fenofibrate (TRICOR) 48 MG tablet Take 48 mg by mouth daily Give with food .Active acetaminophen (TYLENOL) 500 MG tablet Take 500 mg by mouth every 6 (six) hours as needed for pain.Active aspirin 81 MG EC tablet Take 81 mg by mouth daily .Active cholecalciferol, vitamin D3, (Vitamin D3) 1,000 unit capsule Take 1,000 Units by mouth daily .Active venlafaxine (EFFEXOR-XR) 75 MG 24 hr capsule Take 75 mg by mouth daily .Active Active Problems ProblemNoted DateDiagnosed DateAKI (acute kidney injury)04/06/2018 Assessment & Plan (04/06/2018 10:16 AM EDT): BUN/Cr 28/1.5 on 03/26/18 - Per record review, baseline Cr ~1.2-1.3 - Patient denies history of CKD - Discussed recent BMP results; patient agreeable to repeat BMP during visit 04/06/18, results willbe forwarded to his PCP for further PAF (paroxysmal atrial fibrillation)01/18/2018 Overview (01/18/2018): Added automatically from request for surgery [id number] Assessment & Plan (04/06/2018 10:16 AM EDT): Per history with JLA6YD4-FAUd score of 3 and HAS-BLED score of 3 - S/p LAAO with WATCHMAN on 02/22/18 under general anesthesia - Limited TTE 02/22/18 showed EF 60-65% with no evidence of pericardial effusion - Eliquis continued post WATCHMAN; Aspirin therapy was not started at time of WATCHMAN per Dr. Dao recommendations - Hgb 13.7 on 03/26/18 and stable - ZAINAB 04/06/18 pending; if no/minimal device leak, to be transitioned to DAPT with Clopidogrel 75 mg and Aspirin 81 mg, to continue for a total of 6 months from the original implant date (08/22/18). Aspirin 81 mg will continue indefinitely. Family History Medical HistoryRelationCommentsCancerFatherNo Known ProblemsMotherIntellectual DisabilitySonRelationStatusCommentsBrotherAliveFatherDeceasedMotherDeceasedSon Alive Social History Tobacco UseTypesPacks/DayYears UsedDateSmoking Tobacco: YkswvdHikfskolri3Hloj: 06/12/1974Smokeless Tobacco: NeverAlcohol UseStandard Drinks/WeekCommentsNo0 (1 standard drink = 0.6 oz pure alcohol)Sex and Gender InformationValueDate RecordedSex Assigned at BirthNot on fileLegal MbsYuri5410/04/2013 2:23 PM EDT Gender YspgidsvEuwr01/17/2018 1:37 PM EDTSexual UwjshibrldiKbncsbqh33/17/2018 1:37 PM EDT Last Filed Vital Signs Vital SignReadingTime TakenCommentsBlood Dcmqlhhx962/801 2:02 PM EDT Yblvm772203/28/2019 1:38 PM GIQLoytfrahhny82.5 ??C (97.7 ??F)03/28/2019 1:38 PM EDTRespiratory Szgy3766 1:38 PM EDTOxygen Opgkqycpoq720%03/28/2019 1:38 PM EDTInhaled Oxygen Concentration--Suaahw49.7 kg (158 lb)03/28/2019 1:38 PM EDT Gkxjtm028.7 cm (5' 8 )02/22/2018 8:46 AM EDTBody Mass Index24.02002/22/2018 8:46 AM EDT Plan of Treatment Health MaintenanceDue DateLast DoneCommentsWellness Visit3Depression Screening/Follow-Up (PHQ-2/9)1951Zoster Vaccines (1 of 2)1989Falls Risk Onyqxrltkl48/09/2005RSV Vaccines (1 - 1-dose 75+ series)2014COVID-19 Vaccine (1 - 2024- season)2025Influenza Vaccine (#1)2025 03/20/2017, 06/29/2016, 04/25/2016, Additional history exists Tetanus/Diphtheria/Pertussis (3 - Tdap), 2013 Pneumococcal Vaccine: 50+ MtvssWyjazgooc70/02/2015, 05/20/2005HIB VaccinesAged OutNo longer eligible based on patient's age to complete this topicHPV Vaccines Aged OutNo longer eligible based on patient's age to complete this topic Hepatitis A VaccinesAged OutNo longer eligible based on patient's age to complete this topicHepatitis B VaccinesAged OutNo longer eligible based on patient's age to complete this topicIPV VaccinesAged OutNo longer eligible based on patient's age to complete this topicMeningococcal ACWY VaccineAged OutNo longer eligible based on patient's age to complete this topicMeningococcal B VaccineAged OutNo longer eligible based on patient's age to complete this topic Rotavirus VaccinesAged OutNo longer eligible based on patient's age to complete this topic Medical Devices ImplantedTypeAreaManufacturerDevice IdentifierShelf Expiration DateModel / Serial / LotClosure 6fr Proglide - [id number] Implanted:Qty: 1 on 02/22/2018 by Michael Austin MD at [facility] DeviceABBOTT [id number] / / [id number] 21mm Watchman Sandy Closure - [id number] Implanted:Qty: 1 on 02/22/2018 by Michael Austin MD at [facility] [place] [id number] / / [id number] Watchman Procedure Sandy Closure - [id number] Implanted:Qty: 1 on 02/22/2018 by Michael Austin MD at [facility] [place] SCIWATCHMAN SYSTEM / / [id number] Insurance MemberSubscriberPlan / Payer (Effective 2004-Present)Name:Siddharth Hammond Member ID:[id number] Relation to Subscriber:SelfName:Siddharth Hammond Subscriber ID:[id number] Payer ID:Not on file Group ID:Not on file Type:Not on file Address: [facility] J15 PART A CLAIMS [address] [address] [place] [address] [place] [address] Advance Directives For more information, please contact: [phone] * Full Code (Latest Code Status on File) Date ActivatedDate InactivatedComments02/22/2018 10:31 AM * Full Code Date ActivatedDate InactivatedComments02/22/2018 8:23 AM02/22/2018 10:31 AM Care Teams Team MemberRelationshipSpecialtyStart DateEnd Date Cedric Rodriguez MD PCP - General10/25/11 Mohamud Queen MD Consulting PhysicianCardiovascular Disease12/04/17 Ned Matamoros MD [address] [address] Neurological Surgery01/30/18
--- OUTSIDE RECORDS SUMMARY | 2025-05-12 15:59 | XMS_ITS | Encounter Summary ---
Author Organization [facility] Address [address] [place] [address] Care Team Providers Care Superior Court Judge Name Role Phone Cedric Rodriguez MD Primary Care Provider [phone] Cedric Rodriguez MD Unavailable [phone] Reason for Visit * ReasonOnset DateCommentsCare Hwlchzwbvyfy66/20/2025 Encounter Details DateTypeDepartmentCare Team (Latest Contact Info)Zcdkwcuicbr39/20/2025Telephone [facility] [place] [address] [facility] [address] [place] [address] Cedric Rodriguez MD [address] [facility] [address] [place] [address] Care Coordination Social History Tobacco UseTypesPacks/DayYears UsedDateSmoking Tobacco: NeverSmokeless Tobacco: NeverAlcohol UseStandard Drinks/WeekCommentsNot Currently0 (1 standard drink = 0.6 oz pure alcohol)PHQ-2AnswerDate RecordedPatient Health Questionnaire-2 Score EducationAnswerDate RecordedWhat is the highest level of school you have completed or the highest degree you have received?Some college, no degree 03/06/2023Sex and Gender InformationValueDate RecordedSex Assigned at BirthNot on fileLegal XnaFlwz2008/24/2022 6:46 PM EDTGender IdentityNot on fileSexual OrientationNot on fileOccupationIndustryJob Start DateJob End DateRetiredNot on fileNot on fileNot on filedocumented as of this encounter Miscellaneous Notes * Telephone Encounter - Amanda Dave MA - 05/12/2025 9:09 AM EST Denny called back and stated his dad is taking 0.5 tablet of xanax mid-late morning and then a whole tablet before bed. The robaxin he is taking at 3pm. Gabapentin 1 capsule at bedtime and he is sleeping much better. Instead of getting up 5-6 times a night, he is only getting up once. * Telephone Encounter - Amanda Dave MA - 05/05/2025 2:40 PM EST left for pt son asking him the Q from and asked to call back and let us know. * Telephone Encounter - Cedric Rodriguez MD - 05/01/2025 4:59 PM EST PDMP reviewed. It looks like we have been trying to decrease his dosing and eventually discontinue it. They were also working from the last phone note, on adjusting dosing times. With a holiday coming I did send a 30 day supply. Can we try to figure out how the timing is working and/or can we try to decrease this further? Also however they doing with the gabapentin, the prescription has but he was titrating somenot sure where they are at with that. * Telephone Encounter - Opal Mcconnell - 05/01/2025 3:26 PM EST Elena called and Denny will be out of his Xanax tomorrow. She is asking for Dr. Rodriguez to refill so he does not run out. documented in this encounter Plan of Treatment Not on file documented as of this encounter Visit Diagnoses Diagnosis Generalized anxiety disorder documented in this encounter Care Teams Team MemberRelationshipSpecialtyStart DateEnd Date Cedric Rodriguez MD [address] [address] PCP - GeneralFamily Medicine10/18/22 Cedric Rodriguez MD [address] [address] PCP - [facility]03/11/23documented as of this encounter
--- OUTSIDE RECORDS SUMMARY | 2025-05-12 15:59 | XMS_ITS | Clinical Summary ---
Author Organization [facility] Address [address] [place] [address] Care Team Providers Care Information And Referral Director Name Role Phone Cedric Rodriguez MD Primary Care Provider + [phone] Cedric Rodriguez MD Unavailable [phone] Allergies Active AllergyReactionsCriticalityNoted XcnmLlkhlswoIelahypeph68/26/2023 Other Reaction(s): angiodemia Sulfa Bxhxpqiiptr59/26/2023 Other Reaction(s): Hives Medications MedicationSigDispense QuantityRefillsLast FilledStart DateEnd DateStatus Multiple Vitamin (Multi-Vitamin) tablet Take 1 tablet by mouth in the morning.Active acetaminophen (Tylenol Extra Strength) 500 MG tablet Take 1,000 mg by mouth DailyActive aspirin 81 MG EC tablet Take 81 mg by mouth DailyActive cetirizine (ZyrTEC) 10 MG tablet Take 5 mg by mouth DailyActive magnesium hydroxide (Milk of Magnesia) 400 MG/5ML suspension Take 30 mL by mouth at bedtimeActive nystatin (Mycostatin) 995005 UNIT/GM powder Apply 1 application topically if needed for otherActive OXYCODONE HCL PO Take 2.5 mg by mouth every 4 (four) hours if needed (for moderate pain not to exceed 2.5mg daily)Active senna-docusate (Seema-Colace) 8.6-50 MG tablet Take 2 tablets by mouth at bedtimeActive hydrOXYzine HCl (Atarax) 10 MG tablet Take 10 mg by mouth in the morning and 10 mg before bedtime.Active gabapentin (Neurontin) 100 MG capsule Indications:Chronic pain syndromeTake 1-3 capsules (100-300 mg) by mouth in the evening As needed for pain 90 capsule 5Active escitalopram (Lexapro) 20 MG tablet Indications: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 Do not crush, chew, or split. 30 tablet /6Active ALPRAZolam (Xanax) 0.25 MG tablet Indications:Generalized anxiety disorderTake 1 tablet (0.25 mg) by mouth 2 (two) times a day as needed for anxiety 60 tablet 5Active ALPRAZolam (Xanax) 0.25 MG tablet Indications:Generalized anxiety disorderTake 1 tablet (0.25 mg) by mouth 2 (two) times a day 60 tablet Discontinued(Reorder) Active Problems ProblemNoted DateDiagnosed DateNeed for assistance with personal care03/24/2025 Chronic pain vladtdot01/10/2025Lumbar compression ymluncix57/14/2025Moderate late onset Alzheimer's dementia with mood vgdvmmedryx20/07/2024cquired npbxenicnfinfj02/26/2023ntiplatelet or antithrombotic long-term use03/07/2023 Benign essential xctxrajiumkn04/26/2023iatrial lubpynqzjua60/26/2023hronic qbefgqh5803/07/2023ontrolled substance agreement fxrvio4403/07/2023oronary artery disease involving [place] coronary artery of [place] heart without angina pectoris 03/07/2023eneralized anxiety tiqkvtgm80/26/2023Hypertensive nephropathy 03/07/2023Lung ggqtxhxir35/26/2023Memory loss03/07/2023Mixed hyperlipidemia 03/07/2023Moderate major bcuyufckdj21/26/2023Osteoarthritis of spine03/07/2023 Paroxysmal atrial vjqyurzvkqdt46/26/2023ersonal history of malignant neoplasm of qjxluzxs88/26/2023Seasonal allergic rhinitis due to eurjnp1203/07/2023Tortuous aorta03/07/2023Vascular dementia without behavioral dhssxtqyfyr79/26/2023White matter anqxzqa1803/07/2023cute non-ST segment elevation myocardial infarction 12/29/2020 Resolved Problems ProblemNoted DateDiagnosed DateResolved DateAdult situational stress disorder /7789Zweuvxglnggv08/26/202305/12/2023Mild cognitive impairment Stress due to illness of family mairqg60/05/2024 Encounters DateTypeDepartmentCare EmwaMowtyjfcixm81/20/2025Telephone [facility] [place] [address] [facility] [address] [place] [address] Cedric Rodriguez MD Care Edewhdlvmicq30/30/2025Refill [facility] [place] [facility] Family [facility] [address] [facility] [address] [place] [address] Cedric Rodriguez MD Seasonal affective disorder (Primary Dx)04/10/2025Telephone [facility] [place] [address] [facility] [address] [facility] [address] [place] [address] Jolie September, Care Glqzkpljybbb76/20/2025Telephone [facility] [place] [address] [facility] [address] [facility] [address] [place] [address] Jolie September, Care Szzayngwdlce52/13/2025Telephone [facility] [place] [address] [facility] [address] [facility] [address] [place] [address] Jolie Amanda, ABRAN Care Ldsqawyabbbc73/18/20[address] [address] [place] [address] Cedric Rodriguez MD 02/24/2025 3:00 PM EDTTelemedicine [place] [address] [place] [address] Cedric Rodriguez MD Compression fracture of L2 vertebra, sequela; Chronic pain syndrome; 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); Vascular dementia without behavioral disturbance (HCC); Moderate major depression (HCC); 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, unspecified cerebrovascular disease type, unspecified hemiplegia type (HCC); Encounter for examination following treatment at hospital; Controlled substance agreement signed; Benign essential hypertension ; Chronic kidney disease, stage 3a ([facility]-HCC)02/18/2025bstract [place] [address] [place] [address] Cedric Rodriguez MD from Last 3 Months Immunizations ImmunizationAdministration DatesNext TpvYXoA4506/20/2013Influenza, High Dose Seasonal, Preservative Free03/24/2017Influenza, Zffzhzbjyxl89/03/2015,2013 ,03/24/2010,03/24/2009,06/24/2008Influenza, injectable, quadrivalent, preservative free07/31/2019,03/12/2019,08/08/2018,03/20/2017,06/29/2016, 04/25/2016,04/27/2015,2013,03/24/2010,03/24/2009Influenza, seasonal, injectable, preservative free06/29/2016,05/30/2014Pneumococcal Conjugate PCV 13 02/11/2015Pneumococcal Conjugate PCV 7106/25/2015Pneumococcal Conjugate, Jltrpgycpzk53/14/2016Pneumococcal Polysaccharide LNRW615007/21/2004Pneumococcal, Xofpbtrykyb08/09/2005Td (adult), 5 Lf tetanus toxoid, preservative free, gqgaunqx67/14/5265Anwy07/22/2024 Family History Medical HistoryRelationNameCommentsNo Known ProblemsBrotherNo Known Problems DaughterNo Known ProblemsFatherNo Known ProblemsMotherDementiaOtherNo Known ProblemsSonRelationNameStatusCommentsBrother2 brothersDaughterAlive1 daughter FatherDeceasedMotherDeceasedOtherAlivespouseSonAlive5 sons Social History Tobacco UseTypesPacks/DayYears UsedDateSmoking Tobacco: NeverSmokeless Tobacco: Never Tobacco Cessation:Counseling Given: Yes Alcohol UseStandard Drinks/WeekCommentsNot Currently0 (1 standard drink = 0.6 oz pure alcohol)PHQ-2AnswerDate RecordedPatient Health Questionnaire-2 Score0 09/11/2024EducationAnswerDate RecordedWhat is the highest level of school you have completed or the highest degree you have received?Some college, no degree 03/06/2023Sex and Gender InformationValueDate RecordedSex Assigned at BirthNot on fileLegal DopPwcl1908/24/2022 6:46 PM EDTGender IdentityNot on fileSexual OrientationNot on fileOccupationIndustryJob Start DateJob End DateRetiredNot on fileNot on fileNot on file Last Filed Vital Signs Vital SignReadingTime TakenCommentsBlood Kmmrubtm380/7012 11:26 AM EST Fkrqf968105/20/2024 11:26 AM ESTTemperature--Respiratory Rate--Oxygen Saturation 99%05/20/2024 11:26 AM ESTInhaled Oxygen Concentration--Eorjyh14.9 kg (152 lb) 09/11/2024 1:57 PM MCQQdxhwf981.7 cm (5' 8 )09/11/2024 1:57 PM EDTBody Mass Index23.11009/11/2024 1:57 PM EDT Plan of Treatment Health MaintenanceDue DateLast DoneCommentsInfluenza Vaccine (#1)12/09/2025 07/31/2019, 03/12/2019, 08/08/2018, Additional history existsPostponed from 02/10/2025 (Patient Refused)Pneumococcal Vaccine: 65+ KehjxZdgehplco08/14/2016, 04/25/2016, 02/11/2015, Additional history existsCOVID-19 VaccineDiscontinued Insurance Advance Directives TypeDate RecordedPatient RepresentativeExplanationPower of Attorney08/28/2023 7:42 [id number] Power Of AttorneyAdvance Directives and Living Will08/28/2023 7:33 [id number] Advance Directive Care Teams Team MemberRelationshipSpecialtyStart DateEnd Date Cedric Rodriguez MD [address] [place] [address] PCP - GeneralFamily Medicine10/18/22 Cedric Rodriguez MD [address] [place] [address] PCP - [facility]03/11/23
--- OUTSIDE RECORDS SUMMARY | 2025-05-12 15:59 | XMS_ITS | Clinical Summary ---
Author Organization [facility] Address [address] [place] [address] Care Team Providers Care Edm Operator Name Role Phone Cedric Rodriguez MD Primary Care Provider [phone] Allergies Active AllergyReactionsCriticalityNoted LoboXohgvbdrSpnsxwuZhfin95/15/2023 Medications MedicationSigDispense QuantityRefillsLast FilledStart DateEnd DateStatus donepezil (Aricept) 5 mg tablet donepezil 5 mg tablet TAKE ONE TABLET BY MOUTH AT BEDTIMEActive escitalopram (Lexapro) 5 mg tablet escitalopram 5 mg tablet TAKE ONE TABLET BY MOUTH ONCE DAILYActive ALPRAZolam (Xanax) 1 mg tablet in the morning.Active nitroglycerin (Nitrostat) 0.4 mg SL tablet nitroglycerin 0.[address] 1 TABLET UNDER YOUR TONGUE EVERY 5 MINUTES NEEDED FOR CHEST PAIN FOR 3 DOSES ONLY. IF NO RELIEF, CALL 911Active hydrOXYzine HCL (Atarax) 25 mg tablet hydroxyzine HCl 25 mg tablet TAKE ONE TABLET BY MOUTH EVERY 8 HOURS NEEDEDActive hydrALAZINE (Apresoline) 25 mg tablet Indications:Essential hypertensionTAKE ONE TABLET BY MOUTH TWICE A DAY DIRECTED 60 tablet ctive lisinopril 5 mg tablet Indications:Essential hypertensionTAKE ONE TABLET BY MOUTH ONCE DAILY 30 tablet ctive atorvastatin (Lipitor) 80 mg tablet Indications:Coronary artery disease due to lipid rich plaqueTAKE ONE TABLET BY MOUTH DAILY DIRECTED 30 tablet ctive cholecalciferol (Vitamin D-3) 25 MCG (1000 units) tablet Take 3 tablets by mouth in the morning.07/30/2014ctive fenofibrate (Tricor) 48 mg tablet Take 48 mg by mouth.Active fexofenadine (Nicole) 180 mg tablet Take 180 mg by mouth.Active multivitamin tablet Take 1 tablet by mouth in the morning.Active QUEtiapine (SEROquel) 50 mg tablet Take 50 mg by mouth twice a day.03/20/2023ctive venlafaxine XR (Effexor-XR) 75 mg 24 hr capsule Take 75 mg by mouth in the morning.Active metoprolol tartrate (Lopressor) 25 mg tablet Indications:PAF (paroxysmal atrial fibrillation) (CMS/HCC)Take 1 tablet (25 mg) by mouth in the morning and at bedtime. 180 tablet ctive Active Problems ProblemNoted DateDiagnosed DateCerebrovascular accident (CVA)03/24/2023 03/24/2023Echocardiogram lgxqunxk65 Overview (03/24/2023): Jun 29, 2016 Entered By: CHANTEL JENNINGS Comment: 03/2010: EF 50-55% Epidermoid cyst of skinLong term current use of anticoagulant slvfeug90Mild cognitive impairment of uncertain or unknown voitkhej53rimary malignant neoplasm of prostate Vitamin D qacqiiaqoi84dult situational stress wpczmkav98ntiplatelet or antithrombotic long-term use iatrial tqxsfbdicyt03Lung granuloma Osteoarthritis of spineStress due to illness of family fndjii30Tortuous aorta Presence of Watchman left atrial appendage closure henvxc1108/24/2022 Assessment & Plan (08/24/2022 4:28 PM EDT): No anticoagulation status post watchman implantation Controlled substance agreement xpuedd26cute non-ST segment elevation myocardial ddblozaowf38/20/2021hronic kidney srqpmgp5912/29/2020 Assessment & Plan (08/24/2022 4:28 PM EDT): Renal condition is Stable Coronary zdrpqucqygpwswo64/20/2021 Assessment & Plan (08/24/2022 4:24 PM EDT): Coronary artery disease is Stable Without any concerning symptoms Continue goal-directed medical therapy with Plavix, metoprolol and Lipitor continue risk factor modifications- heart healthy diet, regular exercise as tolerated and continue all medications. Essential rzcksqctbeua43/20/2021 Assessment & Plan (08/24/2022 4:26 PM EDT): Hypertension is Well controlled 136/87 and daughter states blood pressure is even better at home Continue lisinopril, hydralazine and Metoprolol Paroxysmal atrial jcgjfkdkzrow38/20/2021 Assessment & Plan (08/24/2022 4:27 PM EDT): Rate well controlled continue metoprolol, no anticoagulation status post watchman implantation Rlnxvbh6111/27/2020epressive tehcgbfj16/18/2021cquired yasdsmqbpmkbej13/14/2021 03/24/2023hronic mdznnwv06Mild cognitive pakhfwvq11/17/2020 03/24/2023Memory losseneralized anxiety ylnehjjy55/22/2020 03/24/2023Vascular dementia without behavioral ownmphljiek45 Hypertensive jqoybauhkjs66Seasonal allergic rhinitis due to fntrls86ostinflammatory pulmonary gitdulss57/05/2019 03/24/2023Stricture of leulvk37Moderate major depression White matter ckezgzk76KI (acute kidney injury) Overview (03/24/2023): Last Assessment & Plan: BUN/Cr 28/1.5 on 03/26/18 - Per record review, baseline Cr ~1.2-1.3 - Patient denies history of CKD - Discussed recent BMP results; patient agreeable to repeat BMP during visit 04/06/18, results willbe forwarded to his PCP for further Adjustment wzbbxjoe68Normal body mass index (BMI)01/26/2017 03/24/2023Stress due to family nstzbbf66artial seizures Subdural vozyuzpw69Hypertensive emergency radycardiareatinine elevation HLD (hyperlipidemia)ersonal history of malignant neoplasm of Immunizations ImmunizationAdministration DatesNext NjoLErO8906/20/2013Influenza, High Dose Seasonal, Preservative Free03/24/2017Influenza, Drzqvoytzji30/03/2015,2013 ,06/24/2008Influenza, injectable, quadrivalent, preservative free07/31/2019, 03/12/2019,08/08/2018,03/20/2017,06/29/2016,04/25/2016,04/27/2015,03/24/2010, 03/24/2009Influenza, seasonal, injectable, preservative free, 6 moonths & older 05/30/2014Pneumococcal Conjugate PCV 130/07/2014Pneumococcal Conjugate PCV 7 04/25/2016Pneumococcal Conjugate, Zjwgwqdlisr92/14/2016Pneumococcal Polysaccharide ULI6526/02/2005Pneumococcal, Chteufhybxg93/09/2005Td (adult), 5 Lf tetanus toxoid, preservative free, pbsasvmb27/14/2016 Social History Tobacco UseTypesPacks/DayYears UsedDateSmoking Tobacco: NeverSmokeless Tobacco: Never Tobacco Cessation:Counseling Given: Not Answered Alcohol UseStandard Drinks/WeekCommentsNot Currently0 (1 standard drink = 0.6 oz pure alcohol)UT Safety & EnvironmentAnswerDate RecordedFear of Current or Ex-PartnerNot on file08/03/2023Emotionally AbusedNot on file08/03/2023hysically AbusedNot on file08/03/2023Sexually AbusedNot on file08/03/2023hysically or Sexually AbusedNot on file08/03/2023Sex and Gender InformationValueDate Recorded Sex Assigned at BirthNot on fileLegal VsqJuaz7512/08/2021 10:39 PM EDTGender IdentityNot on fileSexual OrientationNot on file Last Filed Vital Signs Vital SignReadingTime TakenCommentsBlood Ypmyhydr761/7810 3:33 PM EDT Mkgrd2214 3:33 PM EDTTemperature--Respiratory Rate--Oxygen Hhuofynmws08% 03/24/2023 3:33 PM EDTInhaled Oxygen Concentration--Vbmjle51.6 kg (160 lb) 03/24/2023 3:33 PM RBQWehgyz378.7 cm (5' 8 )03/24/2023 3:33 PM EDTBody Mass Index24.3310 3:33 PM EDT Plan of Treatment Health MaintenanceDue DateLast DoneCommentsMedicare Annual Wellness (AWV) 1939Depression Vhixzbpvy84/09/1952Zoster Vaccines (1 of 2)1989Fall Risk Aklhudefh10/09/2005COVID-19 Vaccine ( - season)2025Influenza Vaccine (#1), 03/12/2019, 08/08/2018, Additional history existsAdult Bsdpdbl63Pneumococcal Vaccine: 50+ YearsCompleted 04/25/2016, 04/25/2016, 02/11/2015, Additional history existsHIB VaccinesAged OutNo longer eligible based on patient's age to complete this topicHPV Vaccines Aged OutNo longer eligible based on patient's age to complete this topicIPV VaccinesAged OutNo longer eligible based on patient's age to complete this topic Meningococcal B VaccineAged OutNo longer eligible based on patient's age to complete this topicMeningococcal VaccineAged OutNo longer eligible based on patient's age to complete this topicRotavirus VaccinesAged OutNo longer eligible based on patient's age to complete this topic Insurance [place] [id number] Care Teams Team MemberRelationshipSpecialtyStart DateEnd Date Cedric Rodriguez MD [address] [place] [address] [facility] - Zxodade72/13/23
--- NOTE | 2025-05-12 16:09 | ED.URI1 ---
HPI - URI/Sore Throat General Chief Complaint: Upper Respiratory Infection Stated Complaint: Shortness of Breath Time Seen by Provider: 05/12/25 15:52 Source: patient Limitations: no limitations History of Present Illness HPI Narrative: The patient is 84 years old male brought to us by his son after he was concerned that he started having change in his voice for the last few days, it all started the evening of time giving, there is a dry cough but there is some change of voice there is some runny nose as well, the patient have no chest pain no difficulty breathing no leg edema no diarrhea no exposure to anybody with similar symptoms But the son was concerned that there is wheezing noted Related Data Home Medications ?Medication ?Instructions ?Recorded ?Confirmed alprazolam 1 mg tablet,extended 1 mg PO QAM 08/16/23 09/18/24 release 24 hr aspirin 81 mg tablet,delayed 81 mg PO DAILY 08/16/23 09/18/24 release donepezil 10 mg tablet 20 mg PO .QHS 08/16/23 08/24/23 aripiprazole 5 mg tablet 2.5 mg PO .QHS 08/23/23 08/24/23 amlodipine 5 mg tablet 5 mg PO DAILY 06/02/24 05/12/25 escitalopram oxalate 20 mg tablet 20 mg PO DAILY 06/02/24 05/12/25 losartan 50 mg tablet 50 mg PO DAILY 06/02/24 05/12/25 alprazolam 0.25 mg tablet mg 05/12/25 methocarbamol 500 mg tablet mg 05/12/25 Allergies Allergy/AdvReac Type Severity Reaction Status Date / Time Sulfa (Sulfonamide Allergy Mild Unknown Verified 05/12/25 15:51 Antibiotics) Review of Systems ROS Status of ROS 10 or more systems reviewed and unremarkable except as noted in history and below [facility] Medical History Dementia ?F03.90 - Unspecified dementia, unspecified severity, without behavioral disturbance, psychotic disturbance, mood disturbance, and anxiety (ICD-10) Pre-syncope ?R55 - Syncope and collapse (ICD-10) Multiple falls ?R29.6 - Repeated falls (ICD-10) Syncope ?R55 - Syncope and collapse (ICD-10) Generalized weakness ?R53.1 - Weakness (ICD-10) Myocardial infarct ?I21.9 - Acute myocardial infarction, unspecified (ICD-10) Hypertension ?I10 - Essential (primary) hypertension (ICD-10) Brain bleed ?I61.9 - Nontraumatic intracerebral hemorrhage, unspecified (ICD-10) Presence of Watchman left atrial appendage closure device ?Z95.818 - Presence of other cardiac implants and grafts (ICD-10) A-fib ?I48.91 - Unspecified atrial fibrillation (ICD-10) Prostate cancer ?C61 - Malignant neoplasm of prostate (ICD-10) Family History Other Family history of cancer Social History Within the past year, how often did you have a drink containing alcohol: never Within the past year, how many standard drinks containing alcohol did you have on a typical day: 1 or 2 Within the past year, how often did you have six or more drinks on one occasion: never Total score: 0 Score interpretation: A score less than 4 is consistent with normal alcohol consumption. Smoking status: Former smoker Non-prescribed substance use: denies use Highest level of school completed/degree received: some college, no degree Little interest or pleasure in doing things: not at all Feeling down, depressed, or hopeless: not at all Gender Identity: female Exam Narrative Exam Narrative: Nurses notes and vital signs reviewed and patient is not hypoxic. General: Well-appearing and in no apparent distress. Skin: Warm, dry, no pallor noted. No rash. Head: Normocephalic, atraumatic. Neck: Supple, non-tender. throat : There is no tonsillar erythema or enlargement and the patient have a patent airway Cardiovascular: Regular Rate and Rhythm without murmur, gallop or rub. Respiratory: No accessory muscle use or respiratory distress. Lungs are clear to auscultation, no wheezing, rales or rhonchi Chest Wall: no tenderness Back: No midline thoracic or lumbar vertebral tenderness. No CVA tenderness Musculoskeletal: normal ROM, no calf or popliteal tenderness, no lower extremity edema/swelling GI: Abdomen is soft, non-distended. Normal bowel sounds. No masses appreciated. No tenderness to palpation. No rebound, guarding, or rigidity noted. Neurological: A&O x4. No cranial nerve dysfunction observed. No truncal ataxia. Moves all extremities. Sensation intact. Psychiatric: Cooperative and interactive. Normal mood and affect. Constitutional Vital Signs, click to edit/add: Last Vital Signs Temp 97.7 F 05/12/25 15:45 Pulse 74 05/12/25 15:45 Resp 18 05/12/25 15:45 BP 167/114 H 05/12/25 15:45 Pulse Ox 97 05/12/25 15:45 O2 Del Method Room Air 05/12/25 15:45 Course Vital Signs Vital signs: Vital Signs Temperature 97.7 F 05/12/25 15:45 Pulse Rate 74 05/12/25 15:45 Respiratory Rate 18 05/12/25 15:45 Blood Pressure 167/114 H 05/12/25 15:45 Pulse Oximetry 97 05/12/25 15:45 Oxygen Delivery Method Room Air 05/12/25 15:45 Temperature 97.7 F 05/12/25 15:45 Pulse Rate 74 05/12/25 15:45 Respiratory Rate 18 05/12/25 15:45 Blood Pressure 167/114 H 05/12/25 15:45 Pulse Oximetry 97 05/12/25 15:45 Oxygen Delivery Method Room Air 05/12/25 15:45 MDM - URI/Sore Throat MDM Narrative Medical decision making narrative: The patient brought to us by his son who was worried about his symptoms although he does only have some mild symptoms but he said that he brought him just as prophylaxis The patient chest x-ray as well as CBC chemistry and COVID and flu test are negative Patient presentation is mostly secondary to laryngitis mostly viral nature started almost 2 to 3 days ago right now just supportive care with humidified air and hydration Patient will follow-up with his primary care tomorrow Lab Data Labs: Lab Results 05/12/25 05/12/25 Range/Units 16:05 16:08 WBC 5.6 (4.0-11.0) 10^3/uL RBC 4.66 L (4.70-6.10) 10^6/uL Hgb 14.8 (14.0-18.0) g/dL Hct 43.6 (42.0-54.0) % MCV 93.6 (80.0-94.0) fL MCH 31.8 (25.9-34.0) pg MCHC 33.9 (29.9-35.2) g/dL RDW 13.2 (11.0-15.0) % Plt Count 158 (150-450) 10^3/uL MPV 8.8 L (9.5-13.5) fL Neut % (Auto) 47.3 (43.0-75.0) % Lymph % (Auto) 43.2 (20.5-60.0) % [place] % (Auto) 4.3 (1.7-12.0) % Eos % (Auto) 4.4 (0.9-7.0) % Baso % (Auto) 0.4 (0.2-2.0) % Neut # (Auto) 2.7 (1.4-6.5) 10^3/uL Lymph # (Auto) 2.4 (1.2-3.8) 10^3/uL [place] # (Auto) 0.2 L (0.3-0.8) 10^3/uL Eos # (Auto) 0.3 (0.0-0.7) 10^3/uL Baso # (Auto) 0.0 (0.0-0.1) 10^3/uL Abs Immat Gran (auto) 0.02 (0.00-0.03) 10^3/uL Imm/Tot Granulo (auto) 0.4 (0.0-0.5) % Sodium 135 L (136-145) mmol/L Potassium 4.4 (3.5-5.1) mmol/L Chloride 100 (98-107) mmol/L Carbon Dioxide 28.7 (21.0-32.0) mmol/L Anion Gap 10.7 BUN 17.0 (7.0-18.0) mg/dL Creatinine 1.32 H (0.70-1.30) mg/dL Est GFR ( Amer) >60 (>=60 mL/min/1.73m^2) Est GFR (Non-Af Amer) 52 L (>=60 mL/min/1.73m^2) BUN/Creatinine Ratio 12.9 Glucose 114 H (74-106) mg/dL Calcium 8.6 (8.5-10.1) mg/dL Total Bilirubin 0.6 (0.2-1.0) mg/dL AST 18 (15-37) U/L ALT 30 (16-63) U/L Alkaline Phosphatase 81 (46-116) U/L Total Protein 6.8 (6.4-8.2) g/dL Albumin 3.4 (3.4-5.0) g/dL Globulin 3.4 g/dL Albumin/Globulin Ratio 1.0 Influenza Type A Ag Negative Influenza Type B Ag Negative SARS-CoV-2 Ag (CV2AG) Negative (NEGATIVE) Discharge Plan Discharge Chief Complaint: Upper Respiratory Infection Clinical Impression: Laryngitis Patient Disposition: Home, Self-Care Time of Disposition Decision: 17:41 Condition: Good Mode of Transportation: Private Vehicle Prescriptions / Home Meds: No Action alprazolam 1 mg tablet extended release 24 hr 1 mg PO QAM aspirin 81 mg tablet,delayed release (DR/EC) 81 mg PO DAILY donepezil 10 mg tablet 20 mg PO .QHS losartan 50 mg tablet 50 mg PO DAILY amlodipine 5 mg tablet 5 mg PO DAILY escitalopram oxalate 20 mg tablet 20 mg PO DAILY aripiprazole 5 mg tablet 2.5 mg PO .QHS methocarbamol 500 mg tablet alprazolam 0.25 mg tablet Print Language: Citizen [place] Instructions: Laryngitis (ED), Acute Bronchitis (ED) Referrals: [facility] [Primary Care Provider, Family Practice] - 1 week Discharge Date/Time: 05/12/25 17:48
[2025-05-12 16:17] LABS: Hematocrit 43.6 % (42.0-54.0); Hemoglobin 14.8 g/dL (14.0-18.0); Immature Granulocytes Abs Auto 0.02 10^3/uL (0.00-0.03); Immature Granulocytes Pct Auto 0.4 % (0.0-0.5); Lymphocytes Absolute Auto 2.4 10^3/uL (1.2-3.8); Mean Corpuscular HGB Conc 33.9 g/dL (29.9-35.2); Mean Corpuscular Hemoglobin 31.8 pg (25.9-34.0); Mean Corpuscular Volume 93.6 fL (80.0-94.0); Platelet Count 158 10^3/uL (150-450); Red Blood Count 4.66 10^6/uL (4.70-6.10); White Blood Count 5.6 10^3/uL (4.0-11.0)
--- OUTSIDE RECORDS SUMMARY | 2025-05-12 16:27 | XMS_ITS | CCD ---
Author Organization [facility] Care Team Providers Care Elevator Pilot Name Role Phone Cedric Carr Unavailable Mohamud Ruth Unavailable [phone] DEO RATUL Unavailable Unavailable CEDRIC CARR Unavailable Unavailable Deo Ratul Unavailable [phone] Cedric Carr Primary Care Provider Mohamud Ruth Unavailable [phone] Deo Ratul Unavailable Cedric Carr Primary Care Provider Mohamud Ruth Unavailable Cedric Carr Primary Care Provider [phone] AUSTEN JEFF Admitting Unavailab AUSTEN Abraham Attending Unavailab le CEDRIC CARR Primary Care Unavailable AUSTEN JEFF Admitting Unavailab AUSTEN Abraham Attending Unavailab le CEDRIC CARR Primary Care Unavailable ANGELA PATEL Attending Unavailable CEDRIC CARR Primary Care Unavailable Cedric Carr Primary Care Provider Deo Ratul Unavailable Cedric Carr Primary Care Provider [phone] KYLE RUTH Referring Unavailable CEDRIC CARR Primary Care Unavailable KYLE RUTH Referring Unavailable CEDRIC CARR Primary Care Unavailable KYLE RUTH Referring Unavailable CEDRIC CARR Primary Care Unavailable KYLE RUTH Referring Unavailable CEDRIC CARR Primary Care Unavailable SNEHAL, ENOCH Admitting Unavailable SNEHAL, ENOCH Attending Unavailable HEMEYOMAIRA, CEDRIC Primary Care Unavailable BRAEDEN SCHAEFER Referring Unavailable [place] Procedure Practitioner Unavailab EVELYN Gunderson Surgeon Unavailable TORRIE, KAIT Attending Unavailable TORRIE, KAIT Consulting Unavailable TORRIE, KAIT Admitting Unavailable HEMEYOMAIRA, DR GREENE Primary Care Unavailable HEMEYER, DR GREENE Primary Care Unavailable ZIEBER, DR BOY Bryan Consulting Unavailable MOUKARBEL, DR CAO Attending Unavailable MOUKARBEL, DR CAO Admitting Unavailable MOUKARBEL, DR CAO Consulting Unavailable TORRIE, KAIT Attending Unavailable TORRIE, KAIT Consulting Unavailable TORRIE, KAIT Admitting Unavailable HEMEYER, DR GREENE Primary Care Unavailable HEMEYER, DR GREENE Primary Care Unavailable MOUKARBEL, DR CAO Attending Unavailable MOUKARBEL, DR CAO Admitting Unavailable TORRIE, KAIT Attending Unavailable MOUKAFREDDY, KILEY Attending Unavailable Cedric Carr MD Primary Care Provider [phone] Cedric Carr MD Unavailable [phone] Cedric Carr MD Primary Care Provider Cedric Carr MD Unavailable [phone] Cedric Carr MD Primary Care Provider Cedric Carr MD Unavailable Cedric Carr MD Primary Care Provider [phone] JEWEL VAIL Admitting Unavailable CHA VILLALPANDO Consulting Unavailable JEWEL VAIL Attending Unavailable CEDRIC CARR Primary Care Unavailable UZELAC, ANA LUISA S Referring Unavailable CEDRIC CARR Primary Care Unavailable CEDRIC CARR Attending Unavailable CEDRIC CARR Attending Unavailable CEDRIC CARR Attending Unavailable Sanjuanita IZQUIERDO, Mel Unavailable Allergies Allergy ClassificationReported Allergen(s)Allergy TypeDate of OnsetReaction(s) FacilityAmino Acids (1 source)Amino AcidsDrug Honyteh25-33-2606[facility] RepositorySulfonamides (antibiotic) (1 source)Sulfonamides (Antibiotic)Drug Ngriggp65-80-1805Udx [facility] Repository (15 sources)Sulfonamides (Antibiotic); Translations: [SULFA (SULFONAMIDE ANTIBIOTICS)]Propensity to adverse reactions to tmcs67-70-7739Rxnfnzkcpeo [facility] (8 sources)Sulfonamides (Antibiotic)Propensity to adverse reactions to drug 69-51-9637YkvqlunjaraSowow Health- [place], [place] (2 sources)Amino AcidsDrug Wamgecu86-92-4615X[facility]- [place], [place] (5 sources)Lisinopril; Translations: [LISINOPRIL]Drug Niowmwm03-24-8176Qnzes (See Comments)[place] (1 source)Amino AcidsDrug [facility]ergyOhio [facility] (2 sources)Sulfonamides (Antibiotic)Drug allergy (disorder)17-02-6536GqkOhio [facility] (1 source)SULFOIL; Translations: [SULFOIL]Propensity to adverse reactions to drug (disorder)62-57-9328DskhbsuzkwCommunity [facility] (13 sources)LisinoprilAllergy to jfxmomdtv53-00-0600[facility] (14 sources)Sulfonamides (Antibiotic)Drug Cpduvwr10-62-5850Hmgk, AnaphylaxisNOPemiscot Memorial Health Systems Medications Current Medications MedicationDrug Class(es)DatesSig (Normalized)Sig (Original)acetaminophen 500 mg oral tablet (12 sources)Start: 61-04-7862insl 1000 mg by mouth every six hours1,000 mg, oral, Every 6 hours scheduled, First dose on Mon10/23/24 at 0600, ED to IP Admissiontake 2 tablets by mouth once dailyacetaminophen (Tylenol Extra Strength) 500 MG tablet Take 1,000 mg by mouth Daily Activetake 1 tablet by mouth every six hours as neededacetaminophen (TYLENOL) 500 MG tablet Take 500 mg by mouth every 6 (six) hours as needed for pain. 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 30 tablet 02/24/2025 03/26/2025 ActiveStart: 10-24-2024 End: 46-51-0547ypjb 1 mg by mouth once daily as needed for anxiety1 mg, oral, Daily PRN, anxiety, Starting on 10/26/24 at 0000, Look-alike/sound-alike medication - verify indication for use.Start: 05-20-2024 End: 71-79-2357wpdg 1 tablet by mouth once daily in the morningALPRAZolam XR (XANAX XR) 1 mg 24 hr tablet Take 1 tablet (1 mg total) by mouth every morning. 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 30 tablet 5 04/13/2023 10/10/2023 ActiveARIPiprazole 5 mg oral tablet (5 sources)Atypical AntipsychoticStart: 07-27-2023 End: 74-22-7402xtbm 0.5 tablet by mouth at bedtimeARIPiprazole (Abilify) 5 MG tablet Indications: Vascular dementia without behavioral disturbance (CMS/HCC) , Moderate major depression (CMS/HCC) Take 0.5 tablets (2.5 mg) by mouth at bedtime 0 07/27/2023 10/25/2023 ActiveStart: 06-16-2023 End: 65-69-6452qqfw 1 tablet by mouth at bedtimeARIPiprazole (Abilify) 5 MG tablet Indications: Vascular dementia without behavioral disturbance (CMS/HCC) , Moderate major depression (CMS/HCC) Take 1 tablet (5 mg) by mouth at bedtime 90 tablet 0 06/16/2023 07/27/2023 Discontinued (Reorder)aspirin 81 mg delayed release oral tablet (20 sources)Platelet Aggregation Inhibitor, Nonsteroidal Anti-inflammatory Drug Start: 04-13-2023 End: 48-14-7518dlvn 1 tablet by mouth in the morningaspirin (ASPIR) 81 MG EC tablet Indications: White matter disease Take 1 tablet (81 mg) by mouth inthe morning. 30 tablet 11 04/13/2023 04/12/2024 Activecetirizine hydrochloride 10 mg oral tablet (4 sources)Histamine-1 Receptor Antagonisttake 5 mg by mouth once daily cetirizine (ZyrTEC) 10 MG tablet Take 5 mg by mouth Daily Activetake 1 tablet by mouth in the morningcetirizine (ZyrTEC) 5 mg tablet Take 1 tablet (5 mg total) by mouth in the morning. Activecholecalciferol 1000 unt oral capsule (16 sources)Vitamin Dtake 1 capsule by mouth once dailycholecalciferol, vitamin D3, (Vitamin D3) 1,000 unit capsule Take 1,000 Units by mouth daily . 0 Active take 5 tablets by mouth once dailyvitamin D3 (CHOLECALCIFEROL) 400 UNITS TABS tablet Take 2,000 Units by mouth daily 0 Active End: 56-20-9009dlph 2 capsules by mouth once dailycholecalciferol, vitamin D3, (VITAMIN D3) 1,000 unit capsule Take 2,000 Units by mouth daily. 04/06/2018 Discontinueddocusate sodium 50 mg / sennosides, retirement 8.6 mg oral tablet (5 sources)Start: 40-49-1363zefr 2 tablets by mouth once dailysennosides- docusate sodium (SENOKOT-S) 8.6-50 mg Take 2 tablets by mouth nightly. 7 tablet 10/25/2024 Activetake 8.6-50 mg by mouth at bedtimesenna-docusate (Seema-Colace) 8.6-50 MG tablet Take 2 tablets by mouth at bedtime Activedonepezil hydrochloride 10 mg oral tablet (7 sources)Start: 04-13-2023 End: 46-51-8643vvni 2 tablets by mouth at bedtimedonepezil (Aricept) 10 MG tablet Indications: Moderate late onset Alzheimer's dementia with other be havioral disturbance (CMS/HCC) Take 2 tablets (20 mg) by mouth at bedtime. 60 tablet 5 04/13/2023 10/10/2023 Activetake 1 tablet by mouth once dailyDonepezil HCl (ARICEPT) 23 MG TABS tablet Take 23 mg by mouth nightly 0 Active0.3 ml enoxaparin sodium 100 mg/ml prefilled syringe (1 source)Low Molecular Weight HeparinStart: 63-72-0306jfsmbk 30 mg by subcutaneous injection every twelve hours30 mg, subcutaneous, Every 12 hours, First dose on [facility] 10/24/24 at 0600, Look-alike/sound-alike medication - verify indication for use.escitalopram 20 mg oral tablet (19 sources)Serotonin Reuptake InhibitorStart: 94-13-7517pqgy 20 mg by mouth once daily20 mg, oral, Daily, First dose on [facility] 10/24/24 at 0900, Look-alike/sound-alike medication - verify indication for use.Start: 04-23-2024 End: 95-77-0988fvae 1 tablet by mouth once dailyescitalopram (Lexapro) 20 MG tablet Indications: 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 30 tablet 5 / Activefexofenadine hydrochloride 180 mg oral tablet (10 sources)Histamine-1 Receptor Antagonisttake 1 tablet by mouth once daily fexofenadine (Nicole Allergy) 180 MG tablet Take 180 mg by mouth 1 (one) time each day at the sametime. Activegabapentin 100 mg oral capsule (2 sources)Anti-epileptic AgentStart: 02-24-2025 End: 75-30-9925naps 1-3 capsules by mouth in the evening as needed for pain gabapentin (Neurontin) 100 MG capsule Indications: Chronic pain syndrome Take 1- 3 capsules (100-300mg) by mouth in the evening As needed for pain 90 capsule 02/24/2025 03/26/2025 Activeglucagon (rdna) 1 mg injection (1 source)Antihypoglycemic AgentStart: mg, intramuscular, As needed, low blood sugar, blood glucose less than 70 mg/dL and unconscious or NPO without IV access., Starting on Mon10/23/24 at 0518, ED to IP Admission, If conscious and not NPO, immediately follow with meal tray or high protein (7Grams) snack if tray not available. If NPO,initiate IV 5% Dextrose/Water at 100 mL/hr and contact prescriber for additional orders. If blood glucose is not greater than 70 mg/dL after initial treatment, repeat treatment.50 ml glucose 500 mg/ml prefilled syringe (2 sources)Start: g, oral, As needed, low blood sugar, blood glucose less than 70 mg/dL, Starting on Mon10/23/24 at 0518, ED to IP Admission, If patient conscious and taking PO. If blood glucose is not greater than70 mg/dL after initial treatment, repeat treatment.Start: mL, intravenous, As needed, low blood sugar, blood glucose less than 70 mg/dL and unconscious orNPO with IV access, Starting on Mon10/23/24 at 0518, ED to IP Admission, Push over 1-3 minutes STAT. If conscious and not NPO, immediately follow with meal tray or high protein (7 grams) snack if tray not available. If NPO, initiate 5% dextrose in water at 100 mL/hr and contact prescriber for additional orders. If blood glucose is not greater than 70 mg/dL after initial treatment, repeat treatment. VESICANT (RED) Warning: HYPERTONIC solution. hydrALAZINE hydrochloride 25 mg oral tablet (3 sources)Arteriolar Vasodilatortake 1 tablet by mouth in the morning hydrALAZINE (Apresoline) 25 MG tablet Take 25 mg by mouth in the morning and 25 mg before bedtime. 0 ActivehydrOXYzine hydrochloride 10 mg oral tablet (11 sources)Antihistaminetake 1 tablet by mouth in the morninghydrOXYzine HCl (Atarax) 10 MG tablet Take 10 mg by mouth in the morning and 10 mg before bedtime. Activetake 1 tablet by mouth every eight hours as needed for anxiety hydrOXYzine (ATARAX) 25 mg tablet Take 1 tablet (25 mg total) by mouth every 8 (eight) hours as needed for anxiety. Activemagnesium hydroxide 80 mg/ml oral suspension (2 sources)take 30 mL by mouth at bedtimemagnesium hydroxide (Milk of Magnesia) 400 MG/5ML suspension Take 30 mL by mouth at bedtime Activememantine hydrochloride 5 mg oral tablet (3 sources)P-lxrzhs-L-aspartate Receptor AntagonistStart: 79-96-4163ixcp 1 tablet by mouth in the morningmemantine (Namenda) 5 MG tablet Indications: Vascular dementia without behavioral disturbance (CMS/HCC) Take 1 tablet (5 mg) by mouth in the morning and 1 tablet (5 mg) before bedtime. 60 tablet 0 Activemethocarbamol 500 mg oral tablet (8 sources)Muscle RelaxantStart: 02-24-2025 End: 60-45-2036fnju 1 tablet by mouth three times dailymethocarbamol (Robaxin) 500 MG tablet Indications: Chronic pain syndrome Take 1 tablet (500 mg) by mouth 3 (three) times a day 270 tablet 1 02/24/2025 08/23/2025 ActiveStart: 10-24-2024 End: 81-15-3577lmzl 500 mg by mouth four times daily as needed for muscle spasms 500 mg, oral, 4 times daily PRN, muscle spasms, Starting on Mon10/25/24 at 1400 metoprolol tartrate 25 mg oral tablet (3 sources)beta-Adrenergic Blockertake 1 tablet by mouth in the morning metoprolol tartrate (Lopressor) 25 MG tablet Take 25 mg by mouth in the morning and 25 mg before bedtime. 0 Activemirtazapine 15 mg oral tablet (4 sources)take 1 tablet by mouth once dailymirtazapine (REMERON) 15 MG tablet Take 15 mg by mouth nightly 0 ActiveMultiple Vitamin (Multi-Vitamin) tablet (13 sources)take 1 tablet by mouth in the morningMultiple Vitamin (Multi- Vitamin) tablet Take 1 tablet by mouth in the morning. Activetake 1 tablet by mouth in the morningMultiple Vitamin (Multi-Vitamin) tablet Take 1 tablet by mouth in the morning. 0 ActiveMULTIPLE VITAMIN PO (8 sources)take 1 tablet by mouth once dailyMULTIPLE VITAMIN PO Take 1 tablet by mouth daily 0 Activemultivitamin (multivitamin) per tablet (5 sources)take 1 tablet by mouth once dailymultivitamin (multivitamin) per tablet Take 1 tablet by mouth daily. 0 ActiveMultivitamin Tablet (6 sources)take 1 tablet by mouth once dailymultivitamin (multivitamin) per tablet Take 1 tablet by mouth daily. Activenystatin 100 unt/mg topical powder (2 sources)Polyene Antifungalnystatin (Mycostatin) 788587 UNIT/GM powder Apply 1 application topically if needed for other Active2 ml ondansetron 2 mg/ml injection (2 sources)Serotonin-3 Receptor AntagonistStart: 46-09-1690fxwl 4 mg intravenously every six hours as needed for nausea4 mg, intravenous, Every 6 hours PRN, nausea, Starting on Mon10/23/24 at 0518, ED to IP Admission, I ntravenous administration preferred to be given over 2-5 minutes.Start: 02-22-2018 End: 02-92-7619fvxm 4 mg intravenous route every six hours as neededoxyCODONE hydrochloride 5 mg oral tablet (5 sources)Opioid AgonistStart: 10-25-2024 End: 19-38-0915hlhw 0.5 tablet by mouth every four hours as needed for pain oxyCODONE (ROXICODONE) 5 mg immediate release tablet Indications: Lumbar compression fracture (CMS-HCC) Take 0.5 tablets (2.5 mg total) by mouth every 4 (four) hours as needed for pain for up to 7 days. Max Daily Amount: 15 mg 21 tablet 10/25/2024 11/01/2024 ActiveStart: 72-87-5770hezh 1 tablet by mouth every four hours as needed for painoxyCODONE (ROXICODONE) immediate release tablet 2.5 mgtake 2.5 mg by mouth every four hours as neededOXYCODONE HCL PO Take 2.5 mg by mouth every 4 (four) hours if needed (for moderate pain not to exceed 2.5mg daily) Qoeldr211 ml sodium chloride 9 mg/ml prefilled syringe (6 sources)Start: mL, intravenous, Every 12 hours scheduled, First dose on Mon10/23/24 at 0900, ED to IP AdmissionStart: mL, intravenous, As needed, line care, before and after each intermittent use, Starting on Mon10/23/24 at 0518, ED to IP AdmissionStart: 04-06-2018 End: 67-84-0154ylgtae chloride 0.9% (NS)Start: 02-22-2018 End: 97-64-992709 hr venlafaxine 75 mg extended release oral capsule (7 sources)Serotonin and Norepinephrine Reuptake Inhibitortake 1 capsule by mouth once dailyvenlafaxine (EFFEXOR-XR) 75 MG 24 hr capsule Take 75 mg by mouth daily . 0 Activetake 1 tablet by mouth three times dailyvenlafaxine (EFFEXOR) 75 MG tablet Take 75 mg by mouth 3 times daily 0 Active Completed/Discontinued Medications MedicationDrug Class(es)DatesSig (Normalized)Sig (Original)amLODIPine 5 mg oral tablet (20 sources)Dihydropyridine Calcium Channel BlockerStart: 01-24-2024 End: 86-08-5792psqw 1 tablet by mouth once dailyamLODIPine (Norvasc) 5 MG tablet Indications: Benign essential hypertension Take 1 tablet (5 mg) bymouth Daily 90 tablet 1 05/20/2024 02/24/2025 Discontinued (Reorder)Start: 63-90-4255xzvy 1 tablet by mouth once dailyamLODIPine (NORVASC) 5 MG tablet TAKE ONE TABLET BY MOUTH ONCE DAILY 90 tablet 3 04/28/2020 ActiveStart: 27-96-6220mmzi 1 tablet by mouth once dailyamLODIPine (NORVASC) 5 MG tablet Take 1 tablet by mouth daily 90 tablet 3 04/16/2019 Activeapixaban 5 mg oral tablet (5 sources)Factor Xa InhibitorStart: 02-01-2018 End: 04-63-4438gyvw 1 tablet by mouth twice dailyapixaban (ELIQUIS) 5 mg Tab Take 1 (one) tablet (5 mg total) by mouth 2 (two) times a day. 90 tablet 0 02/22/2018 04/06/2018 Discontinuedatorvastatin 10 mg oral tablet (20 sources)HMG-CoA Reductase InhibitorStart: 02-23-2018 End: 79-38-9458jocb 2 tablets by mouth once dailyatorvastatin (LIPITOR) 10 MG tablet Take 20 mg by mouth daily . 0 Activetake 1 tablet by mouth once daily atorvastatin (LIPITOR) 20 MG tablet Take 20 mg by mouth daily 0 Activetake 1 tablet by mouth once dailyatorvastatin (LIPITOR) 10 MG tablet Take 10 mg by mouth daily. 0 Activecholecalciferol 3775 unt / folic acid 1 mg oral capsule (3 sources)Vitamin D End: 07-81-4365zmoispd D3-folic acid 3,775 unit- 1 mg cap Take 1,000 Units by mouth . 0 03/28/2019 Discontinued (Formulary change)citalopram 10 mg oral tablet (7 sources)Serotonin Reuptake InhibitorStart: 02-23-2018 End: 49-49-9849llfp 1 tablet by mouth once dailycitalopram (CELEXA) 10 MG tablet Take 10 mg by mouth daily. Activefenofibrate 54 mg oral tablet (20 sources)Peroxisome Proliferator Receptor alpha AgonistStart: 02-23-2018 End: 12-45-0468qtmc 1 tablet by mouth once daily at mealtimefenofibrate (TRICOR) 48 MG tablet Take 48 mg by mouth daily Give with food . 0 Zjngoj44 ml fentaNYL 0.05 mg/ml injection (2 sources)Opioid AgonistStart: 04-06-2018 End: 81-33-4000kxdrnONY (SUBLIMAZE) injectionStart: 02-22-2018 End: 05-53-5728ejjlmothuq acetate 100 mg oral tablet (20 sources)AntiarrhythmicStart: 02-22-2018 End: 48-72-0191kwzq 1 tablet by mouth twice dailyflecainide (TAMBOCOR) 100 MG tablet Take 100 mg by mouth 2 (two) times a day. 0 ActivehydroCHLOROthiazide 25 mg oral tablet (20 sources)Thiazide DiureticStart: 02-23-2018 End: 71-70-9759odng 2 capsules by mouth once dailyhydroCHLOROthiazide (MICROZIDE) 12.5 mg capsule Take 25 mg by mouth daily . 0 Activetake 1 tablet by mouth once dailyhydrochlorothiazide (HYDRODIURIL) 25 MG tablet Take 25 mg by mouth daily 0 Activelabetalol hydrochloride 5 mg/ml injectable solution (1 source)beta-Adrenergic BlockerStart: 02-22-2018 End: 59-44-5963tuusbktwf hydrochloride 20 mg/ml mucous membrane topical solution (1 source)Antiarrhythmic, Amide Local AnestheticStart: 04-06-2018 End: 13-66-6475vrmrbdekx (XYLOCAINE) 2 % viscous solutionlisinopril 20 mg oral tablet (19 sources)Angiotensin Converting Enzyme InhibitorStart: 02-23-2018 End: 49-93-9747btkl 1 tablet by mouth in the morninglisinopril 5 MG tablet Take 5 mg by mouth in the morning. 0 Activetake 2 tablets by mouth once daily lisinopril (PRINIVIL,ZESTRIL) 20 MG tablet Take 40 mg by mouth daily . 0 Active take 1 tablet by mouth once dailylisinopril (PRINIVIL;ZESTRIL) 40 MG tablet Take 40 mg by mouth daily 0 Activelosartan potassium 50 mg oral tablet (17 sources)Angiotensin 2 Receptor BlockerStart: 01-24-2024 End: 04-04-1703kyeo 1 tablet by mouth once dailylosartan (Cozaar) 50 MG tablet Indications: Benign essential hypertension Take 1 tablet (50 mg) by mouth Daily 90 tablet 1 05/20/2024 02/24/2025 Discontinued (Reorder)2 ml midazolam 1 mg/ml injection (1 source)BenzodiazepineStart: 04-06-2018 End: 37-64-9681rqeqjuydd (VERSED) injectionnaloxone (NARCAN) injection 0.1 mg (1 source)Start: 02-22-2018 End: 62-76-1148ltintzif (NARCAN) injection 0.1 mgPerflutren Lipid Microspheres Syringe 10 Ml (Cmp) (1 source)Contrast Agent for Ultrasound ImagingStart: 02-22-2018 End: 58-76-5830zioujdsrbg lipid microspheres (DEFINITY) 0.143 mg/mL solution 0- 10 mL of mixture Problems Active Problems Problem ClassificationProblemDateDocumented DateEpisodic/ChronicAcute cerebrovascular disease (20 sources)Hematoma of subdural space of neuraxis; Translations: [Cerebrovascular accident]Onset: 12-26-2015 Resolved: 547111-02-1333PewdbliPalwk myocardial infarction (13 sources)Acute non-ST segment elevation myocardial infarction; Translations: [Non-ST elevation (NSTEMI) myocardial infarction]Onset: 456554-19-6585 ChronicAdministrative/social admission (14 sources)Sickness in the family; Translations: [Other stressful life events affecting family and household]Onset: 03-07-2023 Resolved: 076633-05-4746EhgrwoqaNevcrcp disorders (15 sources)Generalized anxiety disorder; Translations: [Generalized anxiety disorder]Onset: 704667-44-3873GttdmurVbyhvjf dysrhythmias (20 sources)Paroxysmal atrial fibrillation; Translations: [Chronic atrial fibrillation]Onset: 977331-02-8641YwgtureIevhkhe kidney disease (2 sources)Chronic kidney disease stage 3A ; Translations: [Chronic kidney disease, stage 3a (CMS-HCC)]71-32-0015WozmyjzCoekmogk atherosclerosis and other heart disease (20 sources)Atherosclerotic heart disease of [place] coronary artery without angina pectoris; Translations: [Oldmyocardial infarction]Onset: 02-03-2022 ChronicCoronary atherosclerosis and other heart disease (2 sources)Presence of coronary angioplasty implant and graft; Translations: [Presence of coronary angioplastyimplant and graft]Onset: 96-71-1242Tzanxjpt Delirium, dementia, and amnestic and other cognitive disorders (20 sources)Vascular dementia without behavioral disturbance; Translations: [Vascular dementia without behavioral disturbance]Onset: ChronicDisorders of lipid metabolism (20 sources)Hyperlipidemia; Translations: [Mixed hyperlipidemia]Onset: 986323-40-5131CgbdybsY Codes: Fall (2 sources)Fall; Translations: [Unspecified fall, sequela]70-67-7270PcxwlatpE Codes: Fall (1 source)FallOnset: 31-07-8326Eoewuagtu hypertension (20 sources)Essential hypertension; Translations: [Essential (primary) hypertension]Onset: 033333-93-9067CdpwkasMajcmndoedve with complications and secondary hypertension (20 sources)Hypertensive emergency; Translations: [Hypertensive renal disease] Onset: 412854-80-8499MwbbhlxMequgxmbdvxc injury (1 source)Traumatic subdural hemorrhage with loss of consciousness of unspecified duration, initial encounter; Translations: [Traumatic subdural hemorrhage with loss of consciousness of unspecified duration, initial encounter]Onset: 38-87-1681StiaukukHyuv effects of cerebrovascular disease (2 sources)Hemiplegia of right dominant side; Translations: [Hemiplegia and hemiparesis following unspecified cerebrovascular disease affecting right dominant side]67-78-5149ObzebwyKpjkmrj and fatigue (15 sources)Fatigue; Translations: [Chronic fatigue, unspecified]Onset: 798848-43-3125NtmxhakNhfbigs and fatigue (2 sources)Asthenia; Translations: [Weakness]53-78-6876SrtfupldZmqb disorders (19 sources)Moderate major depression ; Translations: [Major depressive disorder, single episode, moderate]Onset: 157481-50-9900VkfxkqfBxaywkmawrj deficiencies (4 sources)Vitamin D deficiency; Translations: [Vitamin D deficiency disease] ChronicOpen wounds of extremities (2 sources)Laceration of left wrist; Translations: [Laceration without foreign body of left wrist, subsequent encounter]51-91-7877IzqcytpdNilxu aftercare (7 sources)Patient encounter status; Translations: [continuous churn buttermaker (current) use of antithrombotics/antiplatelets]Onset: [id number] aftercare (2 sources)Surgical follow-up; Translations: [Encounter for removal of sutures] 42-00-2511BbozjlouHxqwg and ill-defined heart disease (13 sources)Bilateral enlargement of atria; Translations: [Cardiomegaly]Onset: 623532-66-0092ThdekpuJykkq circulatory disease (2 sources)Presence of other cardiac implants and grafts; Translations: [Presence of other cardiac implants and grafts]Onset: 38-52-3453GufhuesMrywh circulatory disease (13 sources)Disorder of aorta; 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]Onset: 543832-18-2903JakatsdCmmss fractures (1 source)Wedge compression fracture of unspecified lumbar vertebra, initial encounter for closed fracture; Translations: [Wedge compression fracture of unspecified lumbar vertebra, initial encounter for closed fracture]Onset: 63-28-2654IxgyjjocBzilq fractures (2 sources)Compression fracture of L2; Translations: [Wedge compression fracture of second lumbar vertebra, sequela]92-87-1499SqtjqksgFozqz injuries and conditions due to external causes (2 sources)At risk for falls ; Translations: [History of falling]07-24-2023 EpisodicOther lower respiratory disease (13 sources)Pulmonary granuloma; Translations: [Pulmonary fibrosis, unspecified] Onset: 951132-72-0081BbksnwtVldad nervous system disorders (5 sources)Chronic pain syndrome; Translations: [Chronic pain syndrome]Onset: 659066-83-7688NnhdtlhHoadz non-traumatic joint disorders (2 sources)Pain in left shoulder; Translations: [Pain in joint, shoulder region] 12-50-6596NrsamsvzQkkkj upper respiratory disease (13 sources)Allergic rhinitis due to pollen; Translations: [Allergic rhinitis due to pollen]Onset: 606256-62-1063BgslosuAayrwkqk codes; unclassified (1 source)Pain, unspecified; Translations: [Pain, unspecified]Onset: 10-23-2024 EpisodicSpondylosis; intervertebral disc disorders; other back problems (13 sources)Spondylosis; Translations: [Spondylosis, unspecified]Onset: 701491-54-8580IixfezvXyxxbgj disorders (13 sources)Acquired hypothyroidism; Translations: [Hypothyroidism, unspecified] Onset: 599308-04-2741VlfbborPulsitrhcfrs (4 sources)MENDEZ (acute kidney injury) ([facility]); Translations: [MENDEZ (acute kidney injury)]Onset: 764005-97-0767Uewzyknslena (2 sources)Other persistent atrial fibrillation; Translations: [Other persistent atrial fibrillation]Onset: 57-77-5431Gqfrsysolqzu (1 source)EMS//Ground from [facility] 84 yo 1940 male with dementia. S/p Fall no LOC Compression fractures L2, L5. Pain when he stands. Dr Vail accepted as a trauma consult.Onset: 10-23-2024 Past or Other Problems Problem ClassificationProblemDateDocumented DateEpisodic/ChronicAcute and unspecified renal failure (4 sources)Acute kidney failure, unspecified; Translations: [MENDEZ (acute kidney injury) (HCC)]Onset: 455780-75-1129YhbguffqVebrihhqva disorders (13 sources)Acute situational disturbance; Translations: [Adjustment disorder, unspecified]Onset: 03-07-2023 Resolved: 879830-11-1190QusggenCtpdis of prostate (13 sources)History of malignant neoplasm of prostate; Translations: [Personal history of malignant neoplasm ofprostate]Onset: 831197-45-6366Dejdeqlf Epilepsy; convulsions (8 sources)Partial seizure; Translations: [Partial seizures]Onset: 04-02-2016 49-75-7554GzzfpgppCtvr disorders (1 source)Mood disordersOnset: 216387-03-4959Zlity aftercare (17 sources)Drug therapy finding; Translations: [Other continuous churn buttermaker (current) drug therapy]Onset: 776860-08-9608ChkdlktaYyvcn aftercare (15 sources)Polypharmacy ; Translations: [Other continuous churn buttermaker (current) drug therapy]Onset: 03-07-2023 Resolved: 266568-45-5772SczmaqkhLqpof aftercare (10 sources)Long-term current use of drug therapy; Translations: [group home (current) use of antithrombotics/antiplatelets]Onset: EpisodicOther fractures (10 sources)Compression fracture of lumbar spine; Translations: [Wedge compression fracture of unspecified lumbar vertebra, initial encounter for closed fracture]Onset: 663601-72-2847IafyuzefIemob hereditary and degenerative nervous system conditions (13 sources)Impaired cognition; Translations: [Mild cognitive impairment, so stated]Onset: 03-07-2023 Resolved: 383462-06-5185UjemugkWygrc lower respiratory disease (1 source)Other nonspecific abnormal finding of lung field; Translations: [OTH NONSPECIFIC ABN FIND LNG FIELD]Onset: 18-95-0047PzmgwlquFjyem nervous system disorders (15 sources)White matter disease; Translations: [White matter disease, unspecified]Onset: 945232-98-0564JabvgfvvPxcsvcnk codes; unclassified (8 sources)Creatinine level - finding; Translations: [Creatinine elevation] Onset: 752874-30-7444CffxxirvZbpbvhws codes; unclassified (13 sources)Amnesia; Translations: [Other amnesia]Onset: Episodic Results Test NameValueInterpretationReference RangeFacilityMR LUMBAR SPINE WO CONTon [id number] LUMBAR SPINE WO CONTMR LUMBAR SPINE WO CONT HISTORY and Tech Notes: Lumbar compression fracture (CMS-HCC) Pain in the low back PROCEDURE: MRI lumbar spine COMPARISON: October 22 FINDINGS: Sagittal images include from T11 through the mid sacrum L5 spondylolysis with anterior translation contributing to moderate bilateral neural foraminal narrowing. There is a small fluid collection protruding anteriorly from the posterior margin of the spinal canal or pseudoarticulation at the lumbosacral junction. This may be related to a small ganglion or synovial cyst. Other process considered less likely No other suspicious fluid collection or hematoma or abscess seen Alignment otherwise looks maintained Bone marrow looks heterogeneous Masslike appearance at the lower left kidney presumably related to assist with other cysts bilaterally, some complex characteristics or hemorrhagic components . There is marrow edema consistent with acute or subacute compression fracture at the superior marginof L2 and L4 and L5 without retropulsion No underlying bone mass appreciated No convincing signs for discitis There is no compression of the distal cord or conus medullaris. Conus medullaris looks unremarkable. There is epidural lipomatosis, more impressive along the posterior spinal canal and circumferentially throughout the lumbosacral junction. There are relatively mild degenerative and hypertrophic changes and mild multilevel disc bulge contributing to yuse-wz-mevunbfz multilevel canal and neural foraminal narrowing IMPRESSION: There are acute to subacute fractures at the superior margin of L2 and L4 and L5 with moderate marrow edema, mild to moderate loss of height but no significant retropulsion No convincing sign of underlying bone mass or discitis There is L5 spondylolysis with anterior translation contributing to moderate bilateral neural foraminal narrowing There is relatively mild degenerative change, hypertrophic change and disc bulge contributing to kvxd-uf-zgbozdqh multilevel stenosis otherwise Finalized by Petr Shine MD on 12/24/2024 5:05 PMNormalProOhiohealth Hardin Memorial HospitalBASIC METABOLIC PANELon 49-58-1920Mxqpm gap [Moles/Vol]5 mmol/LNormal 10-24ProOhiohealth Hardin Memorial HospitalComment on above:Performed By: #### BMP ####[facility] ([facility])[address] [address] VIR Calcium [Mass/Vol]8.8 mg/dLNormal8.5-10.5PGeorgetown Behavioral Hospital HospitalComment on above:Performed By: #### BMP ####[facility] ([facility])[address] [address] VIRChloride [Moles/Vol]105 mmol/KWcfnbj07-154 [facility] HospitalComment on above:Performed By: #### BMP ####[facility] ([facility])[address] [address] VIRCO2 [Moles/Vol]28 mmol/CTjbpxg35-63PwcUjijmu [place] HospitalComment on above: Performed By: #### BMP ####[facility] ([facility])[address] [address] VIRCreatinine [Mass/Vol]1.21 mg/dLNormal 0.60-1.30ProAvita Health System [facility] HospitalComment on above:Result Comment: METHOD TRACEABLE TO IDMS STANDARDPerformed By: #### BMP ####[facility] ([facility])[address] [address] VIRGFR/1.73 sq M.predicted among non-blacks MDRD (S/P/Bld) [Vol rate/Area]59 mL/min/{1.73_m2} Low>=60ProAvita Health System [facility] HospitalComment on above:Result Comment: Reported eGFR is based on the CKD-EPI 2020 equation that does not use a race coefficient.Performed By: #### BMP ####[facility] ([facility])[address] [address] VIRGlucose [Mass/Vol]87 mg/aXMdqaun71-02ZaxTqzxbf [place] HospitalComment on above:Performed By: #### BMP ####[facility] ([facility])[address] [address] VIRPotassium [Moles/Vol]4.0 mmol/LNormal3.5-5.0[facility] Comment on above:Performed By: #### BMP ####[facility] ([facility])[address] [address] VIRSodium [Moles/Vol]138 mmol/L Haiivh290-616WyuAbldctWilson Memorial HospitalComment on above:Performed By: #### BMP ####[facility] ([facility])[address] [address] VIRUrea nitrogen [Mass/Vol]24 mg/dLNocape fear valley medical center5-27[facility] Comment on above:Performed By: #### BMP ####[facility] ([facility])[address] [address] VIRBasic Metabolic Panelon 94-67-0559Gxqvs gap [Moles/Vol]5 mmol/L5 - 15 mmol/[facility] Calcium [Mass/Vol]8.8 mg/dL8.5 - 10.5 mg/dLCleveland Clinic Medina HospitalChloride [Moles/Vol]105 mmol/L98 - 109 mmol/[facility] SystemCO2 [Moles/Vol]28 mmol/L22 - 32 mmol/[facility] SystemCreatinine [Mass/Vol]1.21 mg/dL0.60 - 1.30 mg/dLCleveland Clinic Medina HospitalComment on above:METHOD TRACEABLE TO IDMS STANDARDEGFR Non-Race Ueobndbxl00Kli- Inova Health SystemComment on above:Reported eGFR is based on the CKD-EPI 2020 equation that does not use a race coefficient. Glucose [Mass/Vol]87 mg/dL65 - 99 mg/dLCleveland Clinic Medina HospitalInterpretation and review of laboratory resultsAbnormalCleveland Clinic Medina HospitalPotassium [Moles/Vol]4 mmol/L3.5 - 5.0 mmol/LProMedica Health SystemSodium [Moles/Vol]138 mmol/L134 - 146 mmol/[facility] SystemUrea nitrogen [Mass/Vol]24 mg/dL5 - 27 mg/dLShriners Hospitals for Children - PhiladelphiaCBC WITH AUTO DIFFERENTIALon 32-33-8295YTTCGKBKO ABSOLUTE COUNT (10*3/UL) BY AUTOMATED COUNT 0.0 10*3/uLNormal0.0-0.2Pro[facility]ica [facility] HospitalComment on above:Performed By: #### CBCA ####[facility] ([facility])[address], [place] [address] VIRBASOPHILS RELATIVE PERCENT BY AUTOMATED COUNT0.7 %Normal ProMMcCullough-Hyde Memorial Hospital HospitalComment on above:Performed By: #### CBCA ####[facility] ([facility])[address], [place] [address] VIR CELLAVISION DIFFERENTIAL TYPEAUTOMATED DIFFERENTIALNormalProOhiohealth Hardin Memorial HospitalComment on above:Performed By: #### CBCA ####[facility] ([facility])[address], [place] [address] VIREosinophils (Bld) [#/Vol]0.5 10*3/uLHigh0.0-0.4ProOhiohealth Hardin Memorial HospitalComment on above:Performed By: #### CBCA ####[facility] ([facility])[address], [place] [address] VIREOSINOPHILS RELATIVE PERCENT BY AUTOMATED COUNT7.4 % NormalProOhiohealth Hardin Memorial HospitalComment on above:Performed By: #### CBCA ####[facility] ([facility])[address], [place] [address] VIRErythrocyte distribution width (RBC) [Ratio]14.2 %Kdmajh36.5-15 ProMMcCullough-Hyde Memorial Hospital HospitalComment on above:Performed By: #### CBCA ####[facility] ([facility])[address], [place] [address] VIR Hematocrit (Bld) [Volume fraction]40.8 %Rxdivv66-78XmnUfadba [place] [facility] Comment on above:Performed By: #### CBCA ####[facility] ([facility])[address], [place] [address] VIRHemoglobin (Bld) [Mass/Vol]13.9 g/zCSzhxka12-17BdfCgptzfWilson Memorial HospitalComment on above:Performed By: #### CBCA ####[facility] ([facility])[address] [facility] [address] [address] VIRLYMPHOCYTES ABSOLUTE COUNT (10*3/UL) BY AUTOMATED COUNT 2.1 10*3/uLNormal1.0-3.5PPremier Health Miami Valley Hospital NorthComment on above:Performed By: #### CBCA ####[facility] ([facility])[address] [facility] [address], [place] [address] VIRLYMPHOCYTES RELATIVE PERCENT BY AUTOMATED COUNT32.3 % NormalWilson Memorial HospitalComment on above:Performed By: #### CBCA ####[facility] ([facility])[address] [facility] [address], [place] [address] VIRMCH (RBC) [Entitic mass]31.8 biLszome46-05RvqKvrhsmWilson Memorial Hospital Comment on above:Performed By: #### CBCA ####[facility] ([facility])[address] [facility] [address] [address] VIRMCHC (RBC) [Mass/Vol]34.2 g/dL Gcwqdv59-10PgfNksuurWilson Memorial HospitalComment on above:Performed By: #### CBCA ####[facility] ([facility])[address] [facility] [address], [place] [address] VIRMCV (RBC) [Entitic vol]93 qTOtfwhs91-623VspVnqjevWilson Memorial Hospital Comment on above:Performed By: #### CBCA ####[facility] ([facility])[address] [facility] [address] [address] VIRMONOCYTES ABSOLUTE COUNT (10*3/UL) BY AUTOMATED COUNT0.4 10*3/uLNormal0.0-0.9[facility] Comment on above:Performed By: #### CBCA ####[facility] ([facility])[address], [place] [address] VIRMONOCYTES RELATIVE PERCENT BY AUTOMATED COUNT6.9 %NormalProMedica Pederson HospitalComment on above:Performed By: #### CBCA ####[facility] ([facility])[address], [place] [address] VIRNEUTROPHILS ABSOLUTE COUNT BY AUTOMATED COUNT3.4 10*3/uL Normal1.5-6.6ProMedica Pederson HospitalComment on above:Performed By: #### CBCA ####[facility] ([facility])[address], [place] [address] VIRNEUTROPHILS RELATIVE PERCENT BY AUTOMATED COUNT52.7 %NormalProMedica Pederson HospitalComment on above:Performed By: #### CBCA ####[facility] ([facility])[address], [place] [address] VIRPlatelet mean volume (Bld) [Entitic vol]7.6 fLNormal7-12ProMedica Pederson HospitalComment on above:Performed By: #### CBCA ####[facility] ([facility])[address], [place] [address] VIRPlatelets (Bld) [#/Vol]138 10*3/uLLow 150-450ProMedica Pederson HospitalComment on above:Performed By: #### CBCA ####[facility] ([facility])[address], [place] [address] VIRRBC COUNT4.39 X10E12/LNormal4.1-5.7ProMedica Pederson HospitalComment on above:Performed By: #### CBCA ####[facility] ([facility])[address], [place] [address] VIRWBC (Bld) [#/Vol]6.4 10*3/uLNormal4-11 [facility]erson HospitalComment on above:Performed By: #### CBCA ####[facility] (TT)[address] [address] VIR CBC auto differentialon [id number] (Bld) [#/Vol]0 10*3/uL0.0 - 0.2 10*3/uLCleveland Clinic Medina HospitalBasophils/100 WBC (Bld)0.7 %[facility] HospitalDifferential cell count method Nom (Bld)AUTOMATED DIFFERENTIALCleveland Clinic Medina HospitalEosinophils (Bld) [#/Vol]0.5 10*3/uLHigh0.0 - 0.4 10*3/uLCleveland Clinic Medina HospitalEosinophils/100 WBC (Bld)7.4 %[facility] HospitalErythrocyte distribution width (RBC) [Ratio]14.2 %11.5 - 15 %[facility] Hematocrit (Bld) [Volume fraction]40.8 %39 - 50 %[facility] Hemoglobin (Bld) [Mass/Vol]13.9 g/dL13 - 17 g/dLCleveland Clinic Medina Hospital Interpretation and review of laboratory resultsAbnormSelect Medical [facility] [place] Lymphocytes (Bld) [#/Vol]2.1 10*3/uL1.0 - 3.5 10*3/uLCleveland Clinic Medina Hospital Lymphocytes/100 WBC (Bld)32.3 %[facility] HospitalMCH (RBC) [Entitic mass] 31.8 pg27 - 34 [facility] HospitalMCHC (RBC) [Mass/Vol]34.2 g/dL32 - 36 g/dLCleveland Clinic Medina HospitalMCV (RBC) [Entitic vol]93 fL80 - 100 [facility] ServicesMonocytes (Bld) [#/Vol]0.4 10*3/uL0.0 - 0.9 10*3/uLCleveland Clinic Medina HospitalMonocytes/100 WBC (Bld)6.9 %[facility] HospitalNeutrophils (Bld) [#/Vol]3.4 10*3/uL1.5 - 6.6 10*3/uLCleveland Clinic Medina HospitalNeutrophils/100 WBC (Bld)52.7 %[facility]ica Health SystemPlatelet mean volume (Bld) [Entitic vol]7.6 fL 7 - 12 fLPCleveland ClinicPlatelets (Bld) [#/Vol]138 10*3/uLLowProAcmc Healthcare System SystemRBC (Bld) [#/Vol]4.39 10*6/uLCleveland Clinic Medina HospitalWBC LM Ql (Sput)6.4[facility] Children - PhiladelphiaBASIC METABOLIC PANELon 82-07-3547Rgojj gap [Moles/Vol]8 mmol/LNormal5-15[facility] Comment on above:Performed By: #### BMP ####[facility] ([facility])[address] [address] VIRCalcium [Mass/Vol]9.1 mg/dL Normal8.5-10.5PPremier Health Miami Valley Hospital NorthComment on above:Performed By: #### BMP ####[facility] ([facility])[address] [address] VIRChloride [Moles/Vol]104 mmol/XByrnmk81-600CoiTcehswWilson Memorial Hospital Comment on above:Performed By: #### BMP ####[facility] ([facility])[address] [address] VIRCO2 [Moles/Vol]26 mmol/LNormal 22-32PPremier Health Miami Valley Hospital NorthComment on above:Performed By: #### BMP ####[facility] ([facility])[address] [address] VIR Creatinine [Mass/Vol]1.13 mg/dLNormal0.60-1.30Wilson Memorial HospitalComment on above:Result Comment: METHOD TRACEABLE TO IDMS STANDARDPerformed By: #### BMP ####[facility] ([facility])[address] [address] VIRGFR/1.73 sq M.predicted among non-blacks MDRD (S/P/Bld) [Vol rate/Area] 64 mL/min/{1.73_m2}Normal>=60Wilson Memorial HospitalComment on above:Result Comment: Reported eGFR is based on the CKD-EPI 2020 equation that does not use a race coefficient.Performed By: #### BMP ####[facility] ([facility])[address] [facility] [address] [address] VIRGlucose [Mass/Vol]86 mg/sUExywex76-78SjzRjhuixWilson Memorial HospitalComment on above:Performed By: #### BMP ####[facility] ([facility])[address] [address] VIRPotassium [Moles/Vol]4.1 mmol/LNormal3.5-5.0[facility] Comment on above:Performed By: #### BMP ####[facility] ([facility])[address] [facility] [address] [address] VIRSodium [Moles/Vol]138 mmol/L Erovre173-761MnnGfhxkm [place] HospitalComment on above:Performed By: #### BMP ####[facility] ([facility])[address],[place] [address] VIRUrea nitrogen [Mass/Vol]22 mg/dLNormal5-27[facility] Comment on above:Performed By: #### BMP ####[facility] ([facility])[address] [facility] [address] [address] VIRBasic Metabolic Panelon [id number] gap [Moles/Vol]8 mmol/L5 - 15 mmol/LProMedica Health System Calcium [Mass/Vol]9.1 mg/dL8.5 - 10.5 mg/dLProNorthport Medical Center Health SystemChloride [Moles/Vol]104 mmol/L98 - 109 mmol/LProMedica Health SystemCO2 [Moles/Vol]26 mmol/L22 - 32 mmol/LProMedica Health SystemCreatinine [Mass/Vol]1.13 mg/dL0.60 - 1.30 mg/dLCleveland Clinic Medina HospitalComment on above:METHOD TRACEABLE TO IDMS STANDARDEGFR Non-Race Qtkuhyhav85- PINFProMedica Health SystemComment on above: Reported eGFR is based on the CKD-EPI 2020 equation that does not use a race coefficient. Glucose [Mass/Vol]86 mg/dL65 - 99 mg/dLCleveland Clinic Medina HospitalInterpretation and review of laboratory resultsNormalCleveland Clinic Medina HospitalPotassium [Moles/Vol] 4.1 mmol/L3.5 - 5.0 mmol/LPrLongmont United Hospital Health SystemSodium [Moles/Vol]138 mmol/L134 - 146 mmol/LPrParkview Health Bryan Hospital SystemUrea nitrogen [Mass/Vol]22 mg/dL5 - 27 mg/dL [facility] Children - PhiladelphiaCB WITH AUTO DIFFERENTIALon [id number] ABSOLUTE COUNT (10*3/UL) BY AUTOMATED COUNT0.1 10*3/uLNormal 0.0-0.2PPremier Health Miami Valley Hospital NorthComment on above:Performed By: #### CBCA ####[facility] ([facility])[address] [address] VIRBASOPHILS RELATIVE PERCENT BY AUTOMATED COUNT1.5 %NormalWilson Memorial HospitalComment on above:Performed By: #### CBCA ####[facility] ([facility])[address] [address] VIRCELLAVISION DIFFERENTIAL TYPEAUTOMATED DIFFERENTIALNoalWilson Memorial HospitalComment on above:Performed By: #### CBCA ####[facility] ([facility])[address] [address] VIREosinophils (Bld) [#/Vol]0.5 10*3/uLHigh 0.0-0.4Wilson Memorial HospitalComment on above:Performed By: #### CBCA ####[facility] ([facility])[address] [address] VIREOSINOPHILS RELATIVE PERCENT BY AUTOMATED COUNT7.3 %NormalWilson Memorial HospitalComment on above:Performed By: #### CBCA ####[facility] ([facility])[address], [place] [address] VIRErythrocyte distribution width (RBC) [Ratio]14.1 %Hoghxk39.5-15[facility] Comment on above:Performed By: #### CBCA ####[facility] ([facility])[address], [place] [address] VIRHematocrit (Bld) [Volume fraction]40.1 %Kjdrdc37-79RdbUchpcz [place] HospitalComment on above:Performed By: #### CBCA ####[facility] ([facility])[address], [place] [address] VIRHemoglobin (Bld) [Mass/Vol]13.9 g/zGSlufsh69-50AdyPuggsl [place] HospitalComment on above:Performed By: #### CBCA ####[facility] ([facility])[address], [place] [address] VIRLYMPHOCYTES ABSOLUTE COUNT (10*3/UL) BY AUTOMATED COUNT2.2 10*3/uLNormal1.0-3.5PSavoy Medical Centerica [facility] General HospitalComment on above:Performed By: #### CBCA ####[facility] ([facility])[address], [place] [address] VIRLYMPHOCYTES RELATIVE PERCENT BY AUTOMATED COUNT31.5 %NormalProOhiohealth Hardin Memorial HospitalComment on above:Performed By: #### CBCA ####[facility] ([facility])[address], [place] [address] VIRMCH (RBC) [Entitic mass]31.9 pg Gbnorp88-88CfmFubehz [place] HospitalComment on above:Performed By: #### CBCA ####[facility] ([facility])[address], [place] [address] VIRMCHC (RBC) [Mass/Vol]34.7 g/jJYgyzcd36-65TxyMyzytgWilson Memorial Hospital Comment on above:Performed By: #### CBCA ####[facility] ([facility])[address], [place] [address] VIRMCV (RBC) [Entitic vol]92 fL Ccdgbq47-273UrjEbtdqd Meigs HospitalComment on above:Performed By: #### CBCA ####[facility] ([facility])[address], [place] [address] VIRMONOCYTES ABSOLUTE COUNT (10*3/UL) BY AUTOMATED COUNT0.4 10*3/uLNormal 0.0-0.9ProMedica Meigs HospitalComment on above:Performed By: #### CBCA ####[facility] ([facility])[address], [place] [address] VIRMONOCYTES RELATIVE PERCENT BY AUTOMATED COUNT6.3 %NormalProOhiohealth Doctors Hospitalca Meigs HospitalComment on above:Performed By: #### CBCA ####[facility] ([facility])[address], [place] [address] VIRNEUTROPHILS ABSOLUTE COUNT BY AUTOMATED COUNT3.8 10*3/uLNormal1.5-6.6ProOhiohealth Doctors Hospitalca Meigs HospitalComment on above:Performed By: #### CBCA ####[facility] ([facility])[address], [place] [address] VIRNEUTROPHILS RELATIVE PERCENT BY AUTOMATED COUNT53.4 %NormalProAvita Health System Galion Hospital HospitalComment on above: Performed By: #### CBCA ####[facility] ([facility])[address], [place] [address] VIRPlatelet mean volume (Bld) [Entitic vol]7.8 fLNormal7-12ProMedica Meigs HospitalComment on above:Performed By: #### CBCA ####[facility] ([facility])[address], [place] [address] VIRPlatelets (Bld) [#/Vol]148 10*3/sZTzg360-683SvnOomboc [facility] Comment on above:Performed By: #### CBCA ####[facility] ([facility])[address] [address] VIRRBC COUNT4.36 X10E12/LNormal 4.1-5.7Wilson [facility] HospitalComascension [facility] on above:Performed By: #### CBCA ####[facility] ([facility])[address] [address] VIRWBC (Bld) [#/Vol]7.1 10*3/uLNormal4-11ProOhiohealth Hardin Memorial HospitalComment on above:Performed By: #### CBCA ####[facility] ([facility])[address] [address] VIRCBC auto differentialon [id number] (Bld) [#/Vol]0.1 10*3/uL0.0 - 0.2 10*3/uLCleveland Clinic Medina HospitalBasophils/100 WBC (Bld)1.5 %[facility] HospitalDifferential cell count method Nom (Bld)AUTOMATED DIFFERENTIALCleveland Clinic Medina HospitalEosinophils (Bld) [#/Vol]0.5 10*3/uLHigh0.0 - 0.4 10*3/uLCleveland Clinic Medina HospitalEosinophils/100 WBC (Bld)7.3 %[facility] HospitalErythrocyte distribution width (RBC) [Ratio]14.1 %11.5 - 15 %[facility] HospitalHematocrit (Bld) [Volume fraction]40.1 %39 - 50 %[facility] HospitalHemoglobin (Bld) [Mass/Vol]13.9 g/dL13 - 17 g/dLCleveland Clinic Medina HospitalInterpretation and review of laboratory resultsAbnormSelect Medical Cleveland Clinic Rehabilitation Hospital, AvonLymphocytes (Bld) [#/Vol]2.2 10*3/uL1.0 - 3.5 10*3/uLCleveland Clinic Medina HospitalLymphocytes/100 WBC (Bld)31.5 %[facility] (RBC) [Entitic mass]31.9 pg27 - 34 [facility] MCHC (RBC) [Mass/Vol]34.7 g/dL32 - 36 g/dLCleveland Clinic Medina HospitalMCV (RBC) [Entitic vol]92 fL80 - 100 [facility] ServicesMonocytes (Bld) [#/Vol]0.4 10*3/uL0.0 - 0.9 10*3/uLCleveland Clinic Medina HospitalMonocytes/100 WBC (Bld)6.3 % [facility] HospitalNeutrophils (Bld) [#/Vol]3.8 10*3/uL1.5 - 6.6 10*3/uL [facility] HospitalNeutrophils/100 WBC (Bld)53.4 %[facility] Platelet mean volume (Bld) [Entitic vol]7.8 fL7 - 12 [facility] Platelets (Bld) [#/Vol]148 10*3/uLLowCleveland Clinic Medina HospitalRBC (Bld) [#/Vol] 4.36 10*6/uLCleveland Clinic Medina HospitalWBC LM Ql (Sput)7.1PGeisinger-Lewistown HospitalABO Rh Repeaton 91-41-7407AZCYYncTvzmlwMercy Health Kings Mills HospitalRh Nom (Bld)PositiveShriners Hospitals for Children - PhiladelphiaBASIC METABOLIC PANELon 11-58-0485Wmfuo gap [Moles/Vol]8 mmol/LNormal5-15Wilson Memorial HospitalComment on above:Performed By: #### BMP ####[facility] ([facility])[address] [facility] [address] [address] VIRCalcium [Mass/Vol]9.0 mg/dLNormal8.5-10.5PPremier Health Miami Valley Hospital NorthComment on above:Performed By: #### BMP ####[facility] ([facility])[address] [facility] [address] VIRChloride [Moles/Vol]103 mmol/SUyqqxt35-249AfoLkzdma [place] HospitalComment on above:Performed By: #### BMP ####[facility] ([facility])[address] [address] VIRCO2 [Moles/Vol]28 mmol/QEqucaw03-56TjyXoymfd [place] HospitalComment on above:Performed By: #### BMP ####[facility] ([facility])[address], [place] [address] VIRCreatinine [Mass/Vol]1.17 mg/dLNormal0.60-1.30ProOhiohealth Hardin Memorial HospitalComment on above:Result Comment: METHOD TRACEABLE TO IDMS STANDARD Performed By: #### BMP ####[facility] ([facility])[address] [facility] [address] [address] VIRGFR/1.73 sq M.predicted among non-blacks MDRD (S/P/Bld) [Vol rate/Area]61 mL/min/{1.73_m2}Normal>=60[facility] Comment on above:Result Comment: Reported eGFR is based on the CKD-EPI 2020 equation that does not use a race coefficient.Performed By: #### BMP ####[facility] ([facility])[address] [facility] [address] [address] VIRGlucose [Mass/Vol]95 mg/qYBcrjdh72-72JooNttxqw [place] HospitalComment on above:Performed By: #### BMP ####[facility] ([facility])[address] [address] VIRPotassium [Moles/Vol]4.1 mmol/LNormal3.5-5.0[facility] Comment on above:Performed By: #### BMP ####[facility] ([facility])[address] [address] VIRSodium [Moles/Vol]139 mmol/L Tmuyyr145-622JpxVgrqav [place] HospitalComment on above:Performed By: #### BMP ####[facility] ([facility])[address] [address] VIRUrea nitrogen [Mass/Vol]24 mg/dLNormal5-27ProMartins Ferry Hospitalo Hospital Comment on above:Performed By: #### BMP ####[facility] ([facility])[address] [address] VIRBasic Metabolic Panelon 63-13-4495Wckwe gap [Moles/Vol]8 mmol/L5 - 15 mmol/[facility] Calcium [Mass/Vol]9 mg/dL8.5 - 10.5 mg/dLProAcmc Healthcare System SystemChloride [Moles/Vol]103 mmol/L98 - 109 mmol/[facility] SystemCO2 [Moles/Vol]28 mmol/L22 - 32 mmol/[facility] SystemCreatinine [Mass/Vol]1.17 mg/dL0.60 - 1.30 mg/dLCleveland Clinic Medina HospitalComment on above:METHOD TRACEABLE TO IDMS STANDARDEGFR Non-Race Yhfsggcfe88- [facility] Health SystemComment on above: Reported eGFR is based on the CKD-EPI 2020 equation that does not use a race coefficient. Glucose [Mass/Vol]95 mg/dL65 - 99 mg/dLCleveland Clinic Medina HospitalInterpretation and review of laboratory resultsNormSelect Medical [facility] Clinic Rehabilitation Hospital, AvonPotassium [Moles/Vol] 4.1 mmol/L3.5 - 5.0 mmol/LProMedica Health SystemSodium [Moles/Vol]139 mmol/L134 - 146 mmol/[facility] SystemUrea nitrogen [Mass/Vol]24 mg/dL5 - 27 mg/dL [facility] - PhiladelphiaCBC WITH AUTO DIFFERENTIALon [id number] ABSOLUTE COUNT (10*3/UL) BY AUTOMATED COUNT0.0 10*3/uLNormal 0.0-0.2PPremier Health Miami Valley Hospital NorthComment on above:Performed By: #### CBCA ####[facility] ([facility])[address] [address] VIRBASOPHILS RELATIVE PERCENT BY AUTOMATED COUNT0.7 %NormalWilson Memorial HospitalComment on above:Performed By: #### CBCA ####[facility] ([facility])[address], [place] [address] VIRCELLAVISION DIFFERENTIAL TYPEAUTOMATED DIFFERENTIALNormalProAvita Health System [facility] HospitalComment on above:Performed By: #### CBCA ####[facility] ([facility])[address], [place] [address] VIREosinophils (Bld) [#/Vol]0.5 10*3/uLHigh 0.0-0.4ProAvita Health System [facility] HospitalComment on above:Performed By: #### CBCA ####[facility] ([facility])[address], [place] [address] VIREOSINOPHILS RELATIVE PERCENT BY AUTOMATED COUNT7.3 %NormalProAvita Health System [facility] HospitalComment on above:Performed By: #### CBCA ####[facility] ([facility])[address], [place] [address] VIRErythrocyte distribution width (RBC) [Ratio]14.4 %Koslih76.5-15ProAvita Health [facility] Hospital Comment on above:Performed By: #### CBCA ####[facility] ([facility])[address], [place] [address] VIRHematocrit (Bld) [Volume fraction]41.4 %Jvjvbi96-20FxfIdwztu [place] HospitalComment on above:Performed By: #### CBCA ####[facility] ([facility])[address], [place] [address] VIRHemoglobin (Bld) [Mass/Vol]14.2 g/dULlmrxi09-56TtbUpufeu [place] HospitalComment on above:Performed By: #### CBCA ####[facility] ([facility])[address], [place] [address] VIRLYMPHOCYTES ABSOLUTE COUNT (10*3/UL) BY AUTOMATED COUNT1.8 10*3/uLNormal1.0-3.5ProMedica Meigs HospitalComment on above:Performed By: #### CBCA ####[facility] ([facility])[address], [place] [address] VIRLYMPHOCYTES RELATIVE PERCENT BY AUTOMATED COUNT24.6 %NormalProOhiohealth Doctors Hospitalca Meigs HospitalComment on above:Performed By: #### CBCA ####[facility] ([facility])[address], [place] [address] VIRMCH (RBC) [Entitic mass]31.3 pg Iswekp99-59DfhFcpqbk Meigs HospitalComment on above:Performed By: #### CBCA ####[facility] ([facility])[address], [place] [address] VIRMCHC (RBC) [Mass/Vol]34.3 g/iOEbrnhc00-95ItbIchjcq [place] [facility] Comment on above:Performed By: #### CBCA ####[facility] ([facility])[address], [place] [address] VIRMCV (RBC) [Entitic vol]91 fL Ykzpmv81-550VvyLdrmcn [place] HospitalComment on above:Performed By: #### CBCA ####[facility] ([facility])[address], [place] [address] VIRMONOCYTES ABSOLUTE COUNT (10*3/UL) BY AUTOMATED COUNT0.4 10*3/uLNormal 0.0-0.9ProAvita Health System [facility] HospitalComment on above:Performed By: #### CBCA ####[facility] ([facility])[address], [place] [address] VIRMONOCYTES RELATIVE PERCENT BY AUTOMATED COUNT4.8 %NormalProOhiohealth Doctors Hospitalca Meigs HospitalComment on above:Performed By: #### CBCA ####[facility] ([facility])[address], [place] [address] VIRNEUTROPHILS ABSOLUTE COUNT BY AUTOMATED COUNT4.7 10*3/uLNormal1.5-6.6ProMedica Meigs HospitalComment on above:Performed By: #### CBCA ####[facility] ([facility])[address] [facility] [address], [place] [address] VIRNEUTROPHILS RELATIVE PERCENT BY AUTOMATED COUNT62.6 %NormalProAvita Health System [facility] HospitalComment on above: Performed By: #### CBCA ####[facility] ([facility])[address] [facility] [address], [place] [address] VIRPlatelet mean volume (Bld) [Entitic vol]7.4 fLNormal7-12ProMedica Meigs HospitalComment on above:Performed By: #### CBCA ####[facility] ([facility])[address] [facility] [address], [place] [address] VIRPlatelets (Bld) [#/Vol]137 10*3/eSCjx344-719IaqDzuitaAdams County Hospital on above:Performed By: #### CBCA ####[facility] ([facility])[address] [place] [address] VIRRBC COUNT4.54 X10E12/LNormal 4.1-5.7ProAvita Health System [facility] HospitalComment on above:Performed By: #### CBCA ####[facility] ([facility])[address] [place] [address] VIRWBC (Bld) [#/Vol]7.4 10*3/uLNormal4-11ProAvita [facility] HospitalComment on above:Performed By: #### CBCA ####[facility] ([facility])[address] [facility] [address], [place] [address] VIRCBC auto differentialon [id number] (Bld) [#/Vol]0 10*3/uL0.0 - 0.2 10*3/uLProMedica Health SystemBasophils/100 WBC (Bld)0.7 %[facility] HamiltonedicWindom Area Hospital SystemDifferential cell count method Nom (Bld)AUTOMATED DIFFERENTIALProMedica Marymount Hospital SystemEosinophils (Bld) [#/Vol]0.5 10*3/uLHigh0.0 - 0.4 10*3/uLProMedica Health SystemEosinophils/100 WBC (Bld)7.3 %[facility] HospitalErythrocyte distribution width (RBC) [Ratio]14.4 %11.5 - 15 %[facility] HospitalHematocrit (Bld) [Volume fraction]41.4 %39 - 50 %[facility] HospitalHemoglobin (Bld) [Mass/Vol]14.2 g/dL13 - 17 g/dLCleveland Clinic Medina HospitalInterpretation and review of laboratory resultsAbnormalCleveland Clinic Medina HospitalLymphocytes (Bld) [#/Vol]1.8 10*3/uL1.0 - 3.5 10*3/uLCleveland Clinic Medina HospitalLymphocytes/100 WBC (Bld)24.6 %[facility] HospitalMCH (RBC) [Entitic mass]31.3 pg27 - 34 [facility] MCHC (RBC) [Mass/Vol]34.3 g/dL32 - 36 g/dLCleveland Clinic Medina HospitalMCV (RBC) [Entitic vol]91 fL80 - 100 [facility] ServicesMonocytes (Bld) [#/Vol]0.4 10*3/uL0.0 - 0.9 10*3/uLCleveland Clinic Medina HospitalMonocytes/100 WBC (Bld)4.8 % [facility] HospitalNeutrophils (Bld) [#/Vol]4.7 10*3/uL1.5 - 6.6 10*3/uL [facility] HospitalNeutrophils/100 WBC (Bld)62.6 %[facility] Platelet mean volume (Bld) [Entitic vol]7.4 fL7 - 12 [facility] Platelets (Bld) [#/Vol]137 10*3/uLLowCleveland Clinic Medina HospitalRBC (Bld) [#/Vol] 4.54 10*6/uLCleveland Clinic Medina HospitalWBC LM Ql (Sput)7.4Good Shepherd Specialty HospitalABO Rh Repeaton 20-26-7395EOUHEpoGaentk Health SystemRh Nom (Bld)PositiveShriners Hospitals for Children - PhiladelphiaAMYLASEon 25-05-0522Hbikley [Catalytic activity/Vol]36 U/MCcasjg93-728PcvJqvpxb [place] HospitalComment on above:Performed By: #### AMYL #### [facility] ([facility]) [address] [place] [address] VIRAPTTon 52-22-8511kILI Coag (PPP) [Time]29 sPrParkview Health Bryan Hospital SystemaPTT Coag (Bld) [Time]29 tCcrjjg31-44NalZltffs [place] HospitalComment on above:Performed By: #### PTT #### [facility] ([facility]) [address] [place] [address] VIRAmylaseon 02-03-0180Qikpmdg (S/P/Bld) [Catalytic activity/Vol]36 U/L28 - 100 U/LPrFulton County Health CenterCBC WITH AUTO DIFFERENTIAL on [id number] ABSOLUTE COUNT (10*3/UL) BY AUTOMATED COUNT0.0 10*3/uL Normal0.0-0.2PPremier Health Miami Valley Hospital NorthComment on above:Performed By: #### CBCA #### [facility] ([facility]) [address] [place] [address] VIRBASOPHILS RELATIVE PERCENT BY AUTOMATED COUNT0.4 %Normal [facility] HospitalComment on above:Performed By: #### CBCA #### [facility] ([facility]) [address] [place] [address] VIRCELLAVISION DIFFERENTIAL TYPEAUTOMATED DIFFERENTIALNormal ProMSelect Medical Specialty Hospital - Southeast OhioComment on above:Performed By: #### CBCA #### [facility] ([facility]) [address] [place] [address] VIREosinophils (Bld) [#/Vol]0.1 10*3/uLNormal0.0-0.4Wilson Memorial HospitalComment on above:Performed By: #### CBCA #### [facility] ([facility]) [address] [place] [address] VIREOSINOPHILS RELATIVE PERCENT BY AUTOMATED COUNT1.3 %Normal ProMedica Meigs HospitalComment on above:Performed By: #### CBCA #### [facility] ([facility]) [address] [place] [address] VIRErythrocyte distribution width (RBC) [Ratio]14.0 %Normal 11.5-15ProOhiohealth Doctors Hospitalca Meigs HospitalComment on above:Performed By: #### CBCA #### [facility] ([facility]) [address] [place] [address] VIRHematocrit (Bld) [Volume fraction]46.8 %Fjqccu86-82RvtGyiykt Meigs HospitalComment on above:Performed By: #### CBCA #### [facility] ([facility]) [address] [place] [address] VIRHemoglobin (Bld) [Mass/Vol]15.8 g/vUFaetku74-66SfhJzxlmk [facility] HospitalComment on above:Performed By: #### CBCA #### [facility] ([facility]) [address] [place] [address] VIRLYMPHOCYTES ABSOLUTE COUNT (10*3/UL) BY AUTOMATED COUNT1.3 10*3/uLNormal1.0-3.5ProMedica Meigs HospitalComment on above:Performed By: #### CBCA #### [facility] ([facility]) [address] [place] [address] VIRLYMPHOCYTES RELATIVE PERCENT BY AUTOMATED COUNT15.0 %Normal ProMedica Meigs HospitalComment on above:Performed By: #### CBCA #### [facility] ([facility]) [address] [place] [address] VIRMCH (RBC) [Entitic mass]31.3 bvRzschx72-55DavYklbaf [facility]igs HospitalComment on above:Performed By: #### CBCA #### [facility] ([facility]) [address] [place] [address] VIRMCHC (RBC) [Mass/Vol]33.8 g/iIMghjwy47-32EviFsslaf [place] HospitalComment on above:Performed By: #### CBCA #### [facility] ([facility]) [address] [place] [address] VIRMCV (RBC) [Entitic vol]93 uHUymkhv39-704ScsLhskmq [place] HospitalComment on above:Performed By: #### CBCA #### [facility] ([facility]) [address] [place] [address] VIRMONOCYTES ABSOLUTE COUNT (10*3/UL) BY AUTOMATED COUNT0.3 10*3/uLNormal0.0-0.9ProAvita [facility] HospitalComment on above:Performed By: #### CBCA #### [facility] ([facility]) [address] [place] [address] VIRMONOCYTES RELATIVE PERCENT BY AUTOMATED COUNT3.6 %Normal [facility] HospitalComment on above:Performed By: #### CBCA #### [facility] ([facility]) [address] [place] [address] VIRNEUTROPHILS ABSOLUTE COUNT BY AUTOMATED COUNT6.9 10*3/uLHigh 1.5-6.6ProAv[facility] HospitalComment on above:Performed By: #### CBCA #### [facility] ([facility]) [address] [place] [address] VIRNEUTROPHILS RELATIVE PERCENT BY AUTOMATED COUNT79.7 %Normal [facility] HospitalComment on above:Performed By: #### CBCA #### [facility] ([facility]) [address] [place] [address] VIRPlatelet mean volume (Bld) [Entitic vol]7.3 fLNormal7-12 ProMMcCullough-Hyde Memorial Hospital HospitalComment on above:Performed By: #### CBCA #### [facility] ([facility]) [address] [place] [address] VIRPlatelets (Bld) [#/Vol]162 10*3/fDLllstt791-980WqpXoguyw [place] HospitalComment on above:Performed By: #### CBCA #### [facility] ([facility]) [address] [place] [address] VIRRBC COUNT5.05 X10E12/LNormal4.1-5.7[facility] Comment on above:Performed By: #### CBCA #### [facility] ([facility]) [address] [place] [address] VIRWBC (Bld) [#/Vol]8.6 10*3/uLNormal4-11[facility] HospitalComment on above:Performed By: #### CBCA #### [facility] ([facility]) [address] [place] [address] VIRCBC auto differentialon [id number] (Bld) [#/Vol]0 10*3/uL0.0 - 0.2 10*3/uLCleveland Clinic Medina HospitalBasophils/100 WBC (Bld)0.4 % [facility] HospitalDifferential cell count method Nom (Bld)AUTOMATED DIFFERENTIALCleveland Clinic Medina HospitalEosinophils (Bld) [#/Vol]0.1 10*3/uL0.0 - 0.4 10*3/uLCleveland Clinic Medina HospitalEosinophils/100 WBC (Bld)1.3 %[facility] HospitalErythrocyte distribution width (RBC) [Ratio]14 %11.5 - 15 %[facility] HospitalHematocrit (Bld) [Volume fraction]46.8 %39 - 50 %[facility] HospitalHemoglobin (Bld) [Mass/Vol]15.8 g/dL13 - 17 g/dLCleveland Clinic Medina Hospital Interpretation and review of laboratory resultsAbnormSelect Medical [facility] [place] Lymphocytes (Bld) [#/Vol]1.3 10*3/uL1.0 - 3.5 10*3/uLCleveland Clinic Med[facility] Hospital Lymphocytes/100 WBC (Bld)15 %[facility] CenterH (RBC) [Entitic mass]31.3 pg27 - 34 pgPCleveland ClinicMCHC (RBC) [Mass/Vol]33.8 g/dL32 - 36 g/dL [facility] HospitalMCV (RBC) [Entitic vol]93 fL80 - 100 [facility] ServicesMonocytes (Bld) [#/Vol]0.3 10*3/uL0.0 - 0.9 10*3/[facility] Monocytes/100 WBC (Bld)3.6 %[facility] HospitalNeutrophils (Bld) [#/Vol]6.9 10*3/uLHigh1.5 - 6.6 10*3/[facility] HospitalNeutrophils/100 WBC (Bld)79.7 %[facility] HospitalPlatelet mean volume (Bld) [Entitic vol]7.3 fL7 - 12 fL [facility] HospitalPlatelets (Bld) [#/Vol]162 10*3/[facility] RBC (Bld) [#/Vol]5.05 10*6/[facility] HospitalWBC LM Ql (Sput)8.6[facility] - PhiladelphiaCOMPREHENSIVE METABOLIC PANELon 10-23-2024 Albumin [Mass/Vol]4.1 g/dLNormal3.2-5.3PPremier Health Miami Valley Hospital NorthComment on above:Performed By: #### CMP #### [facility] ([facility]) [address] [place] [address] VIRALP [Catalytic activity/Vol]68 U/LOfboil45-209HgyTmikcu Toledo HospitalComment on above:Performed By: #### CMP #### [facility] ([facility]) [address] [place] [address] VIRALT [Catalytic activity/Vol]16 U/LNormal<=40ProOhiohealth Hardin Memorial HospitalComment on above:Performed By: #### CMP #### [facility] ([facility]) [address] [place] [address] VIRAnion gap [Moles/Vol]8 mmol/LNormal5-15ProMedica Meigs HospitalComment on above:Performed By: #### CMP #### [facility] ([facility]) [address] [place] [address] VIRAST [Catalytic activity/Vol]33 U/LNormal<=41ProOhiohealth Doctors Hospitalca Meigs HospitalComment on above:Performed By: #### CMP #### [facility] ([facility]) [address] [place], [place] [address] VIRBilirubin [Mass/Vol]0.9 mg/dLNormal0.3-1.2ProMedHighland District Hospital HospitalComment on above:Performed By: #### CMP #### [facility] ([facility]) [address] [place] [address] VIRCalcium [Mass/Vol]9.9 mg/dLNormal8.5-10.5ProMedHighland District Hospital HospitalComment on above:Performed By: #### CMP #### [facility] ([facility]) [address] [place] [address] VIRChloride [Moles/Vol]103 mmol/RNmjzoc45-469IznJymria [place] HospitalComment on above:Performed By: #### CMP #### [facility] ([facility]) [address] [place] [address] VIRCO2 [Moles/Vol]28 mmol/YObeuhu56-27GbbAsrgqi [facility] [facility] Comment on above:Performed By: #### CMP #### [facility] ([facility]) [address] [place] [address] VIRCreatinine [Mass/Vol]1.10 mg/dLNormal0.60-1.30ProAvita Health System [facility] HospitalComment on above:Result Comment: METHOD TRACEABLE TO IDMS STANDARDPerformed By: #### CMP #### [facility] ([facility]) [address] [place] [address] VIRGFR/1.73 sq M.predicted among non-blacks MDRD (S/P/Bld) [Vol rate/Area]66 mL/min/{1.73_m2}Normal>=60ProOhiohealth Hardin Memorial HospitalComment on above:Result Comment: Reported eGFR is based on the CKD-EPI 2020 equation that does not use a race coefficient.Performed By: #### CMP #### [facility] ([facility]) [address] [place] [address] VIRGlucose [Mass/Vol]101 mg/rPFrbt58-12IivXqnhxj [place] HospitalComment on above:Performed By: #### CMP #### [facility] ([facility]) [address] [place] [address] VIRPotassium [Moles/Vol]4.8 mmol/LNormal3.5-5.0ProOhiohealth Hardin Memorial HospitalComment on above:Performed By: #### CMP #### [facility] ([facility]) [address] [place] [address] VIRProtein [Mass/Vol]7.4 g/dLNormal6.0-8.0ProAvita [facility] HospitalComment on above:Performed By: #### CMP #### [facility] ([facility]) [address] [place] [address] VIRSodium [Moles/Vol]139 mmol/QUrtwev298-619RfsTocdrx [place] HospitalComment on above:Performed By: #### CMP #### [facility] ([facility]) [address] [place] [address] VIRUrea nitrogen [Mass/Vol]25 mg/dLNormal5-27ProAv[facility] HospitalComment on above:Performed By: #### CMP #### [facility] ([facility]) [address] [place] [address] VIRComprehensive metabolic panelon 22-48-4492Mdpjqfg [Mass/Vol] 4.1 g/dL3.2 - 5.3 g/dLProAcmc Healthcare System SystemALP [Catalytic activity/Vol]68 U/L 39 - 130 U/LProMedica Health SystemALT No additional P-5'-P [Catalytic activity/Vol]16 U/LNINF - 40 U/LPrCenterpoint Medical Centerica Health SystemAnion gap [Moles/Vol]8 mmol/L5 - 15 mmol/LPrCenterpoint Medical Centerica Health SystemAST [Catalytic activity/Vol]33 U/LNINF - 41 U/LProMedica Health SystemBilirubin [Mass/Vol]0.9 mg/dL0.3 - 1.2 mg/dL ProMedica Health SystemCalcium [Mass/Vol]9.9 mg/dL8.5 - 10.5 mg/dLProAcmc Healthcare System SystemChloride [Moles/Vol]103 mmol/L98 - 109 mmol/LPrCenterpoint Medical Centerica Health SystemCO2 [Moles/Vol]28 mmol/L22 - 32 mmol/[facility] Health SystemCreatinine [Mass/Vol]1.1 mg/dL0.60 - 1.30 mg/dLCleveland Clinic Medina HospitalComment on above: METHOD TRACEABLE TO IDMA STANDARDEGFR Non-Race Raphkntwq78- [facility] SystemComment on above:Reported eGFR is based on the CKD-EPI 2020 equation that does not use a race coefficient. Glucose [Mass/Vol]101 mg/vTIagh73 - 99 mg/dLCleveland Clinic Medina Hospital Interpretation and review of laboratory resultsAbnormalSt. Francis Hospital System Potassium [Moles/Vol]4.8 mmol/L3.5 - 5.0 mmol/LPrCenterpoint Medical Centerica Health SystemProtein [Mass/Vol]7.4 g/dL6.0 - 8.0 g/dLSt. Francis Hospital SystemSodium [Moles/Vol]139 mmol/L134 - 146 mmol/LPrLongmont United Hospital Health SystemUrea nitrogen [Mass/Vol]25 mg/dL5 - 27 mg/dLCleveland Clinic Medina HospitalDRUG SCREEN, URINEon 10-23-2024 AMPHETAMINE/METHAMPNegativeNormalNegProtestant Deaconess HospitalComment on above:Order Comment: Confirmation available upon request.Result Comment: AMPH/METH screening cut off = 1000 ng/mLPerformed By: #### DSU ####[facility] ([facility])[address] [address] VIR BARBITURATESNegativeNormalNegativeProMedica Pederson HospitalComment on above: Order Comment: Confirmation available upon request.Result Comment: Barbiturates screening cut off value = 200 ng/mLPerformed By: #### DSU ####[facility] ([facility])[address] [address] VIR BENZODIAZEPINESPositiveAbnormalNegativeProMedica Pederson HospitalComment on above:Order Comment: Confirmation available upon request.Result Comment: Benzodiazepines screening cut off value = 200 ng/mLPerformed By: #### DSU ####[facility] ([facility])[address] [address] VIRCANNABINOIDSNegativeNormalNegativeProMedica Pederson HospitalComment on above:Order Comment: Confirmation available upon request.Result Comment: Cannabinoids/THC screening cut off value = 50 ng/mLPerformed By: #### DSU ####[facility] ([facility])[address] [address] VIRCOCAINE METABOLITENegativeNormalNegativeProOhiohealth Doctors Hospitalca Meigs Hospital Comment on above:Order Comment: Confirmation available upon request.Result Comment: Cocaine screening cut off value = 300 ng/mLPerformed By: #### DSU ####[facility] ([facility])[address] [address] VIRECSTASYNegativeNormalNegativeProMedica Pederson HospitalComment on above: Order Comment: Confirmation available upon request.Result Comment: Ecstasy screening cut off value = 500 ng/mLPerformed By: #### DSU ####[facility] ([facility])[address] [address] VIRMETHADONE NegativeNormalNegativeProMedica Pederson HospitalComment on above:Order Comment: Confirmation available upon request.Result Comment: Methadone screening cut off value = 300 ng/mL.Performed By: #### DSU ####[facility] ([facility])[address] [address] VIROPIATESPositiveAbnormalNegative [facility] HospitalComment on above:Order Comment: Confirmation available upon request.Result Comment: Opiates screening cut off value = 300 ng/mL This test is used for the detection of codeine, hydrocodone (>1000 ng/mL), morphine and hydromorphone (>900 ng/mL) in urine.Performed By: #### DSU ####[facility] ([facility])[address] [address] VIR OXYCODONENegativeNormalNegativeWilson Memorial HospitalComment on above:Order Comment: Confirmation available upon request.Result Comment: Oxycodone screening cut off value = 300 ng/mL This test is used for the detection of oxycodone and oxymorphone in urine.Performed By: #### DSU ####[facility] ([facility])[address] [address] VIRPHENCYCLIDINE NegativeNormalNegativeWilson Memorial HospitalComment on above:Order Comment: Confirmation available upon request.Result Comment: Phencyclidine screening cut off value = 25 ng/mLPerformed By: #### DSU ####[facility] ([facility])[address] [address] VIRDrug Screen, Urineon 98-82-2724Rtpcobmylvbw Screen method >1000 ng/mL Ql (U)NegativeNegativeProMedica Health SystemComment on above:AMPH/METH screening cut off = 1000 ng/mL Barbiturates Screen Ql (U)NegativeNegativeProMedica Health SystemComment on above:Barbiturates screening cut off value = 200 ng/mLBenzodiazepines Ql (U) PositiveAbnormalNegativeProMedica Health SystemComment on above:Benzodiazepines screening cut off value = 200 ng/mLCocaine Ql (U)NegativeNegativeProMedica Health SystemComment on above:Cocaine screening cut off value = 300 ng/mL Interpretation and review of laboratory resultsAbnormalMercy Health Anderson Hospitalca Health System Methadone (Mec) [Mass/Mass]NegativeNegativeProMedica Health SystemComment on above:Methadone screening cut off value = 300 ng/mL. Methylenedioxymethamphetamine Screen Ql (U)NegativeNegativeSt. Francis Hospital SystemComment on above:Ecstasy screening cut off value = 500 ng/mLOpiates Ql (U) PositiveAbnormalNegativeSt. Francis Hospital SystemComment on above:Opiates screening cut off value = 300 ng/mL This test is used for the detection of codeine, hydrocodone (>1000 ng/mL), morphine and hydromorphone (>900 ng/mL) in urine. oxyCODONE [Mass/Vol]NegativeNegativeSt. Francis Hospital SystemComment on above: Oxycodone screening cut off value = 300 ng/mL This test is used for the detection of oxycodone and oxymorphone in urine. Phencyclidine Screen method >25 ng/mL Ql (U)NegativeNegativeSt. Francis Hospital SystemComment on above:Phencyclidine screening cut off value = 25 ng/mL Tetrahydrocannabinol Screen method >50 ng/mL Ql (U)NegativeNegativeSt. Francis Hospital SystemComment on above:Cannabinoids/THC screening cut off value = 50 ng/mLConfirmation available upon request.[facility] for Children - PhiladelphiaETHANOLon 35-51-5202Bbcnooa [Mass/Vol]mg/dLNormal<=0.080Wilson Memorial HospitalComment on above:Result Comment: This report is intended for use in clinical monitoring or management of patients.Performed By: #### ALCO #### [facility] ([facility]) [address] [place] [address] VIREthanolon 77-93-2787Ifvxnbj Ql (U)g/dLNINF - 0.080 g/dL [facility] HospitalComment on above:This report is intended for use in clinical monitoring or management of patients. Interpretation and review of laboratory resultsNoWisconsin Heart Hospital– WauwatosaFIBRINOGENon 54-72-4761KWNZEWECJJ145 mg/tRExhgsr633-435 Wilson Memorial HospitalComment on above:Performed By: #### FIBR #### [facility] ([facility]) [address] [place] [address] VIRFibrinogenon 68-70-9673Pptlqgldcj Coagulation.derived (PPP) [Mass/Vol]369 mg/dL190 - 480 mg/dLCleveland Clinic Medina HospitalLIPASEon 10-23-2024 Lipase [Catalytic activity/Vol]23 U/JLqolxv25-84ZzwBqkwrzWilson Memorial HospitalComment on above:Performed By: #### LIPA #### [facility] ([facility]) [address] [place] [address] VIRLipaseon 46-78-8520Cqedtv [Catalytic activity/Vol]23 U/L11 - 82 U/LPrFulton County Health CenterNo Panel Informationon 54-80-4040Yzxrzdtowtltwo and review of laboratory resultsNormBerwick Hospital Center Interpretation and review of laboratory resultsNormSelect Medical [facility], [place] [facility] MichiganPROTIME AND INRon 65-13-9725YXU3.7Eizijg8.9-1.2PPremier Health Miami Valley Hospital NorthComment on above:Performed By: #### PINR #### [facility] ([facility]) [address] [place] [address] VIRPT Coag (PPP) [Time]10.9 sNormal9.8-13.2PPremier Health Miami Valley Hospital NorthComment on above:Performed By: #### PINR #### [facility] ([facility]) [address] [place] [address] VIRProtime & INRon 74-39-2441HPC Coag (Platelet poor plasma or blood) [Relative time]10.9 - 1.2PCleveland ClinicPT Coag (PPP) [Time]10.9 [facility] RehabilitationTYPE AND SCREENon 58-71-2989QJM_OIQXJFUmmwnoOanAussjz [place] HospitalComment on above:Performed By: #### TSC ####[facility] ([facility])[address] [place] [address] VIRPerformed By: #### ABORHR ####[facility] ([facility])[address] [place] [address] VIR RH_INTEPPositiveNormalSumma Health Wadsworth - Rittman Medical Center HospitalComment on above:Performed By: #### TSC ####[facility] ([facility])[address] [place] [address] VIRPerformed By: #### ABORHR ####[facility] ([facility])[address] [place] [address] VIRType and screen(includes indirect jeffery)on 10-23-[address] Charles Hospital SystemRh Nom (Bld)PositiveProKettering Health DaytonProKettering Health DaytonURINALYSISon 96-83-2132Nwawdybdp Ql (U)NegativeNormalNegative ProMedica Meigs HospitalComment on above:Order Comment: Urine received without preservative. Delays in transport may affect results. Interpret with caution. A clinical correlation is recommended.Performed By: #### UA ####[facility] ([facility])[address] [facility] [address], [place] [address] VIRBLOOD/HGB SmallAbnormalNegativeWilson Memorial HospitalComment on above:Order Comment: Urine received without preservative. Delays in transport may affect results. Interpret with caution. A clinical correlation is recommended.Performed By: #### UA ####[facility] ([facility])[address] [facility] [address], [place] [address] VIRColor (U)YellowNormalYellow, ColorlessProAvita Health System [facility] Hospital Comment on above:Order Comment: Urine received without preservative. Delays in transport may affect results. Interpret with caution. A clinical correlation is recommended.Performed By: #### UA ####[facility] ([facility])[address] [facility] [address], [place] [address] VIRGlucose Ql (U)NegativeNormal NegativeWilson Memorial HospitalComment on above:Order Comment: Urine received without preservative. Delays in transport may affect results. Interpret with caution. A clinical correlation is recommended.Performed By: #### UA ####[facility] ([facility])[address], [place] [address] VIR Ketones Ql (U)NegativeNormalNegativeProAvita Health System [facility] HospitalComment on above: Order Comment: Urine received without preservative. Delays in transport may affect results. Interpret with caution. A clinical correlation is recommended. Performed By: #### UA ####[facility] ([facility])[address], [place] [address] VIRLeukocyte esterase Test strip Ql (U)Negative NormalNegativeProAvita Health System [facility] HospitalComascension st. jose[facility] hospital on above:Order Comment: Urine received without preservative. Delays in transport may affect results. Interpret with caution. A clinical correlation is recommended.Performed By: #### UA ####[facility] ([facility])[address], [place] [address] VIRMUCOUSPresentAbnormalNonePPremier Health Miami Valley Hospital NorthComascension st. joseph hospital on above: Order Comment: Urine received without preservative. Delays in transport may affect results. Interpret with caution. A clinical correlation is recommended. Performed By: #### UA ####[facility] ([facility])[address], [place] [address] VIRNitrite Ql (U)NegativeNormalNegative ProMgreil memorial psychiatric hospitala [facility] HospitalComascension st. jose[facility] hospital on above:Order Comment: Urine received without preservative. Delays in transport may affect results. Interpret with caution. A clinical correlation is recommended.Performed By: #### UA ####[facility] ([facility])[address], [place] [address] VIRPH,URINE6.5 Normal5.0-8.5PPremier Health Miami Valley Hospital NorthComascension st. joseph hospital on above:Order Comment: Urine received without preservative. Delays in transport may affect results. Interpret with caution. A clinical correlation is recommended.Performed By: #### UA ####[facility] ([facility])[address], [place] [address] VIRProtein Ql (U)200 mg/dLAbnormalNegativeProOhiohealth Hardin Memorial HospitalComascension st. joseph hospital on above:Order Comment: Urine received without preservative. Delays in transport may affect results. Interpret with caution. A clinical correlation is recommended.Performed By: #### UA ####[facility] ([facility])[address] [facility] [address], [place] [address] VIRR.B.MGUFT4Wgkeve5-3PfzKukcpa [place] HospitalComascension st. joseph hospital on above:Order Comment: Urine received without preservative. Delays in transport may affect results. Interpret with caution. A clinical correlation is recommended.Performed By: #### UA ####[facility] ([facility])[address] [facility] [address], [place] [address] VIRSpecific gravity (U) [Rel density]1.996Jzlibg2.003-1.035ProOhiohealth Hardin Memorial HospitalComascension st. joseph hospital on above:Order Comment: Urine received without preservative. Delays in transport may affect results. Interpret with caution. A clinical correlation is recommended.Performed By: #### UA ####[facility] ([facility])[address] [facility] [address], [place] [address] VIRTURBIDITYClearNormalClear Pro[facility] HospitalComascension st[facility] on above:Order Comment: Urine received without preservative. Delays in transport may affect results. Interpret with caution. A clinical correlation is recommended.Performed By: #### UA ####[facility] ([facility])[address] [facility] [address], [place] [address] VIRUROBILINOGEN <1.1 eu/dLNormal<1.1 eu/dLProOhiohealth Hardin Memorial HospitalComascension st. joseph hospital on above:Order Comment: Urine received without preservative. Delays in transport may affect results. Interpret with caution. A clinical correlation is recommended.Performed By: #### UA ####[facility] ([facility])[address] [facility] [address], [place] [address] VIRW.B.QGVZA9Unjcfp9-4FgzBmrqwc [place] HospitalComascension st. jose[facility] hospital on above:Order Comment: Urine received without preservative. Delays in transport may affect results. Interpret with caution. A clinical correlation is recommended.Performed By: #### UA ####[facility] ([facility])[address] [address] VIRUrinalysisOrdered By: Chelly Garciat on 44-31-9532Wmuczoczf Ql (U)NegativeNegativeProOhiohealth Doctors Hospitalca Health SystemColor (U)YellowYellow, ColorlessProAcmc Healthcare System SystemGlucose (U) [Mass/Vol]Negative NegativeProAcmc Healthcare System SystemHemoglobin Auto test strip Ql (U)SmallAbnormal NegativeSt. Francis Hospital SystemInterpretation and review of laboratory results AbnormalProOhiohealth Doctors Hospitalca Health SystemKetones (U) [Mass/Vol]NegativeNegativeProAcmc Healthcare System SystemLeukocyte esterase Auto test strip Ql (U)NegativeNegativeSt. Francis Hospital SystemMucus Ql (Urine sed)PresentAbnormalNonePThe [facility] System Nitrite Auto test strip Ql (U)NegativeNegativeSt. Francis Hospital SystempH (U)6.5 [pH]5.0 - 8.5PThe Jewish Hospital SystemProtein (U) [Mass/Vol]200 mg/dLAbnormal NegativeSt. Francis Hospital SystemRBC Auto (Urine sed) [#/Area]50 - 5PThe Jewish Hospital SystemSpecific gravity Refractometry automated (U) [Rel density]1.022 1.003 - 1.035ProAcmc Healthcare System SystemTurbidity Ql (U)ClearClearPThe Jewish Hospital SystemUrobilinogen Qn (U){Cheryl'U}/dL<1.1 eu/dLSt. Francis Hospital SystemWBC Auto (Urine sed) [#/Area]10 - 5PThe Jewish Hospital SystemUrine received without preservative. Delays in transport may affect results. Interpret with caution. A clinical correlation is recommended.[facility] HospitalProAcmc Healthcare System SystemXR CHEST 1 VWon [id number] CHEST 1 VWXR CHEST 1 VW XR CHEST 1 VW HISTORY: Trauma COMPARISON: None TECHNIQUE: AP portable semiupright view obtained. FINDINGS: The cardiomediastinal silhouette is within normal limits. Pulmonary vasculature is unremarkable. Nofocal consolidation. No pneumothorax or pleural effusion. Atherosclerotic calcifications of aortic arch. IMPRESSION: No radiographic evidence of acute cardiopulmonary process. Approved by Resident Telma Waters MD on 10/23/2024 3:05 AM I, Telma Clayton MD have personally reviewed the image(s) and agree with and/or edited the report Finalized by Telma Clayton MD on 10/23/2024 3:10 [facility] HealthcareXR Chest Single viewon [id number] CHEST 1 VW HISTORY: Trauma COMPARISON: None TECHNIQUE: AP portable semiupright view obtained. FINDINGS: The cardiomediastinal silhouette is within normal limits. Pulmonary vasculature is unremarkable. Nofocal consolidation. No pneumothorax or pleural effusion. Atherosclerotic calcifications of aortic arch. IMPRESSION: No radiographic evidence of acute cardiopulmonary process. Approved by Resident Telma Waters MD on 10/23/2024 3:05 AM I, Telma Clayton MD have personally reviewed the image(s) and agree with and/or edited the report Finalized by Telma Clayton MD on 10/23/2024 3:10 [facility] OF ERIEECTRAVeterans Health Administration [facility] PhoenixTelma mendez MD - 10/23/2024 XR CHEST 1 VW HISTORY: Trauma COMPARISON: None TECHNIQUE: AP portable semiupright view obtained. FINDINGS: The cardiomediastinal silhouette is within normal limits. Pulmonary vasculature is unremarkable. Nofocal consolidation. No pneumothorax or pleural effusion. Atherosclerotic calcifications of aortic arch. IMPRESSION: No radiographic evidence of acute cardiopulmonary process. Approved by Resident Telma Waters MD on 10/23/2024 3:05 AM I, Telma Clayton MD have personally reviewed the image(s) and agree with and/or edited the report Finalized by Telma Clayton MD on 10/23/2024 3:10 AM [facility] HospitalRadiology Study observation (narrative)[facility] HospitalXR Chest Single viewOrdered By: Telma Clayton on [id number] Clinic Medina Hospital Work Phone: XR PELVIS 1 OR 2 VWSon [id number] PELVIS 1 OR 2 VWS XR PELVIS 1 OR 2 VWS XR PELVIS 1 OR 2 VWS HISTORY: Trauma COMPARISON: None FINDINGS: Single supine AP view obtained. No fracture or dislocation. There is no destructive osseous lesion. Mild degenerative changes of the hip and SI joints. Multilevel degenerative changes of the lumbar spine. Postsurgical clips projecting over the pelvis. Vascular calcifications. IMPRESSION: No acute osseous abnormality. Approved by Resident Telma Waters MD on 10/23/2024 3:05 AM Patito Robert MD have personally reviewed the image(s) and agree with and/or edited the report Finalized by Patito Jurado MD on 10/23/2024 3:08 [facility] HealthcareXR Pelvis 1 or 2 Viewson [id number] PELVIS 1 OR 2 VWS HISTORY: Trauma COMPARISON: None FINDINGS: Single supine AP view obtained. No fracture or dislocation. There is no destructive osseous lesion. Mild degenerative changes of the hip and SI joints. Multilevel degenerative changes of the lumbar spine. Postsurgical clips projecting over the pelvis. Vascular calcifications. IMPRESSION: No acute osseous abnormality. Approved by Resident Telma Waters MD on 10/23/2024 3:05 AM Patito Robert MD have personally reviewed the image(s) and agree with and/or edited the report Finalized by Patito Jurado MD on 10/23/2024 3:08 [facility] CENTERPatito Jarquin MD - 10/23/2024 XR PELVIS 1 OR 2 VWS HISTORY: Trauma COMPARISON: None FINDINGS: Single supine AP view obtained. No fracture or dislocation. There is no destructive osseous lesion. Mild degenerative changes of the hip and SI joints. Multilevel degenerative changes of the lumbar spine. Postsurgical clips projecting over the pelvis. Vascular calcifications. IMPRESSION: No acute osseous abnormality. Approved by Resident Telma Waters MD on 10/23/2024 3:05 AM Patito Robert MD have personally reviewed the image(s) and agree with and/or edited the report Finalized by Patito Jurado MD on 10/23/2024 3:08 AM [facility] SystemRadiology Study observation (narrative)[facility] HospitalXR Should[facility] - left 2 Viewson [id number], [place] [address] XRay Report Signed Patient: NETTE HAMMOND MR#: [id number] : 1940 Acct:[id number] Age/Sex: 83 / M ADM Date: 05/27/24 Loc: RAD Attending Dr: CEDRIC CARR Ordering Physician: CEDRIC CARR Date of Service: 05/27/24 Procedure(s): XR shoulder LT min 2V Accession Number(s): [id number] cc: CEDRIC CARR [place] [address] Patient Name: NETTE HAMMOND MRN: [facility]:[id number] date: 1940 Sex: M Assigned Patient Location: RAD Current Patient Location: Accession/Order Number: [id number] Exam Date: 05/27/2024 14:02 Report Date: 05/28/2024 09:09 At the request of: CEDRIC CARR Procedure: XR shoulder LT min 2V PROCEDURE: XR shoulder LT min 2V COMPARISON: None. HISTORY: Acute Pain Of Left Shoulder FINDINGS: BONES:No acute fracture or dislocation. Mild to moderate osteoarthropathy of the acromioclavicular and glenohumeral joints SOFT TISSUES:Negative. No visible soft tissue swelling. EFFUSION:None visible. OTHER: Negative. XR/XR shoulder LT min 2V IMPRESSION: Mild to moderate osteoarthritis Electronically authenticated by: TELMA NETTLES Date: 05/28/2024 09:09 Dictated By: Telma Nettles M.D. Signed By: 05/28/24911 DD/ 8 TD/TT: Sales And Training Specialist:TBHRadiology, Radiologist, MD - 05/28/2024 [place] [address] XRay Report Signed Patient: NETTE HAMMOND MR#: [id number] : 1940 Acct:[id number] Age/Sex: 83 / M ADM Date: 05/27/24 Loc: RAD Attending Dr: CEDRIC CARR Ordering Physician: CEDRIC CARR Date of Service: 05/27/24 Procedure(s): XR shoulder LT min 2V Accession Number(s): [id number] cc: CEDRIC CARR [place] [address] Patient Name: NETTE HAMMOND MRN: [facility]:[id number] date: 1940 Sex: M Assigned Patient Location: [facility] Current Patient Location: Accession/Order Number: [id number] Exam Date: 05/27/2024 14:02 Report Date: 05/28/2024 09:09 At the request of: CEDRIC CARR Procedure: XR shoulder LT min 2V PROCEDURE: XR shoulder LT min 2V COMPARISON: None. HISTORY: Acute Pain Of Left Shoulder FINDINGS: BONES:No acute fracture or dislocation. Mild to moderate osteoarthropathy of the acromioclavicular and glenohumeral joints SOFT TISSUES:Negative. No visible soft tissue swelling. EFFUSION:None visible. OTHER: Negative. XR/XR shoulder LT min 2V IMPRESSION: Mild to moderate osteoarthritis Electronically authenticated by: TELMA NETTLES Date: 05/28/2024 09:09 Dictated By: Telma Nettles M.D. Signed By: 05/28/24911 DD/ 8 TD/TT: Sales And Training Specialist: ARLINE HealthcareRadiology Study observation (narrative)[facility] HealthcareXR Shoulder - left 2 ViewsOrdered By: Radiologist Radiology on [id number] Work Phone: Office Visiton [phone]-up [id number] HammondNette Sr. 1940 M Date Provider Department Center 03/24/2023 KILEY HASSAN [facility] No family history on file Level of Service:[address] [place] OFFICE/OUTPATIENT ESTABLISHED LOW MDM 20-29 MIN Reason for Visit and Comments: Follow-up [118579][facility] [phone]-up [id number] HammondNette Sr. 1940 M Date Provider Department Center 08/24/2022 KAIT KLEIN [facility] No family history on file Level of Service:64017 [place] OFFICE/OUTPATIENT ESTABLISHED MOD MDM 30-39 MIN Reason for Visit and Comments: Follow-up [032206]NormalCommunity Regional Medical CenterCBC AUTO DIFFon [id number] #0.1 103/ulNormal0.0-0.1The City HospitalComment on above: Performed By: #### CBC #### [facility] [address] [address] [address] Kenneth SepulvedaBasophils/100 WBC (Bld)0.6 %Normal0.2-2.0[facility] Comment on above:Performed By: #### CBC #### [facility] [address] [address] [address] Kenneth Stokes #0.2 103/ulNormal0.0-0.7The City HospitalComment on above: Performed By: #### CBC #### [facility] [address] [address] [address] Kenneth Rodriguezosinophils/100 WBC (Bld)2.1 %Normal0.9-7.0[facility] Comment on above:Performed By: #### CBC #### [facility] [address] [address] [address] Kenneth Rodriguezrythrocyte distribution width (RBC) [Ratio]12.4 %Wkdphn08.0-15.0 The City HospitalComment on above:Performed By: #### CBC #### [facility] [address] [address] [address] Kenneth SepulvedaHematocrit (Bld) [Volume fraction]42.4 %Xtwqod31.0-54.0The City HospitalComment on above:Performed By: #### CBC #### [facility] [address] [address] [address] Kenneth SepulvedaHemoglobin (Bld) [Mass/Vol]14.4 g/wFAkacwh83.0-18.0The City HospitalComment on above:Performed By: #### CBC #### [facility] [address] [address] [address] Kenneth Wan #0.03 10e3/ulNormal0.00-0.03The City HospitalComment on above:Performed By: #### CBC #### [facility] [address] [address] [address] Kenneth Wan %0.4 %Normal0.0-0.5The [facility] on above: Performed By: #### CBC #### [facility] [address] [place] [address] Dr. Kenneth Lara #1.7 103/ulNormal1.2-3.8The [facility] on above:Performed By: #### CBC #### [facility] [address] [place] [address] Dr. Kenneth Minorhocytes/100 WBC (Bld)21.8 %Bwcqiz51.5-60.0The [facility] on above:Performed By: #### CBC #### [facility] [address] [place] [address] Dr. Kenneth Angulo DIFF REQNONormalThe City HospitalComment on above: Performed By: #### CBC #### [facility] [address] [place] [address] Dr. Kenneth Stockton (RBC) [Entitic mass]30.6 eoLffpvh11.9-34.0The [facility] on above:Performed By: #### CBC #### [facility] [address] [place] [address] Dr. Kenneth Stockton (RBC) [Mass/Vol]34.0 g/dUSysfsd49.9-35.2The [facility] on above:Performed By: #### CBC #### [facility] [address] [place] [address] Dr. Kenneth Stockton (RBC) [Entitic vol]90.2 vPMkptgy75.0-94.0The [facility] on above:Performed By: #### CBC #### [facility] [address] [place] [address] Dr. Kenneth Evans #0.6 103/ulNormal0.3-0.8The [facility] HospitalComment on above:Performed By: #### CBC #### [facility] [address] [address] [address] Kenneth Peteocytes/100 WBC (Bld)7.1 %Normal1.7-12.0[facility] Comment on above:Performed By: #### CBC #### [facility] [address] [place] [address] Dr. Kenneth AsherUT #5.3 103/ulNormal1.4-6.5The City HospitalComment on above:Performed By: #### CBC #### [facility] [address] [place] [address] Dr. Kenneth Asherutrophils/100 WBC (Bld)68.0 %Mlgadu15.0-75.0The City HospitalComment on above:Performed By: #### CBC #### [facility] [address] [place] [address] Dr. Kenneth SepulvedaPlatelet mean volume (Bld) [Entitic vol]9.1 fLCritically low 9.5-13.5The City HospitalComment on above:Performed By: #### CBC #### [facility] [address] [place] [address] Dr. Kenneth SepulvedaPLT197 103/cpTajbwv276-771Igb City HospitalComment on above: Performed By: #### CBC #### [facility] [address] [place] [address] Dr. Kenneth SepulvedaRBC4.70 106/ulNormal4.70-6.10The City HospitalComment on above:Performed By: #### CBC #### [facility] [address] [place] [address] Dr. Kenneth SepulvedaWBC7.8 103/ulNormal4.0-11.0The [facility] on above: Performed By: #### CBC #### [facility] [address] [place] [address] Dr. Kenneth SepulvedaLIPID PROFILEon [id number]-HDL RATIO NORMSEE BELOWNormalThe Sharron HospitalComment on above:Result Comment: 3.3 - 4.4 LOW RISK 4.4 - 7.1 AVERAGE RISK 7.1 - 11.0 MODERATE RISK >11.0 HIGH RISKPerformed By: #### LIPID, CMP #### [facility] [address] [place] [address] Dr. Kenneth SepulvedaCholesterol [Mass/Vol]116 mg/dLNormal<=200[facility] Comment on above:Performed By: #### LIPID, CMP #### [facility] [address] [place] [address] Dr. Kenneth SepulvedaCholesterol in HDL [Mass/Vol]40 mg/eNCxrkvc14-83IjxOhio Valley HospitalComment on above:Performed By: #### LIPID, CMP #### [facility] [address] [place] [address] Dr. Kenneth SepulvedaCholesterol in LDL [Mass/Vol]57.2 mg/dLSt. Charles HospitalComment on above:Performed By: #### LIPID, CMP #### [facility] [address] [place] [address] Dr. Kenneth Trammellesteranabella.total/Cholesterol in HDL [Mass ratio]2.9 {ratio} NormalOhio Valley HospitalComment on above:Performed By: #### LIPID, CMP #### [facility] [address] [place] [address] Dr. Kenneth SepulvedaHDL NORMAL> or = 60 mg/dl - LOW CARDIOVASCULAR RISK <40 mg/dl - HIGH CARDIOVASCULAR RISKSt. Charles HospitalComascension st. [facility] on above:Performed By: #### LIPID, CMP #### [facility] [address] [place] [address] Dr. Kenneth SepulvedaLDL CALC NORMALSEE BELOWSt. Charles HospitalComment on above:Result Comment: <100 mg/dl OPTIMAL 100 - 129 mg/dl NEAR OR ABOVE OPTIMAL 130 - 159 mg/dl BORDERLINE HIGH 160 - 189 mg/dl HIGH >190 mg/dl VERY HIGH Performed By: #### LIPID, CMP #### [facility] [address] [place] [address] Dr. Yilan ChangTriglyceride [Mass/Vol]94 mg/dLNormal<=150[facility] Comment on above:Performed By: #### LIPID, CMP #### [facility] [address] [place] [address] Dr. Kenneth ShannonLDL CALC18.8 mg/dLNormalThe City HospitalComment on above: Performed By: #### LIPID, CMP #### [facility] [address] [place] [address] Dr. Kenneth SepulvedaPROF 14(COMP METB)on 53-81-9000Pmrovgt [Mass/Vol]3.6 g/dLNormal 3.4-5.0The City HospitalComment on above:Performed By: #### LIPID, CMP #### [facility] [address] [place] [address] Dr. Kenneth SepulvedaAlbumin/Globulin [Mass ratio]1.1 {ratio}NormalThe City HospitalComment on above:Performed By: #### LIPID, CMP #### [facility] [address] [place] [address] Dr. Kenneth LongP [Catalytic activity/Vol]88 U/JIicmvm16-267Knt City HospitalComment on above:Performed By: #### LIPID, CMP #### [facility] [address] [place] [address] Dr. Kenneth Carrion [Catalytic activity/Vol]40 U/VLosdag25-43Aoj City HospitalComment on above:Performed By: #### LIPID, CMP #### [facility] [address] [place] [address] Dr. Kenneth Franco gap [Moles/Vol]14.3 mmol/LNormalThe [facility] Comment on above:Performed By: #### LIPID, CMP #### [facility] [address] [place] [address] Dr. Kenneth Medina [Catalytic activity/Vol]25 U/BYeacyn00-45Afg City HospitalComment on above:Performed By: #### LIPID, CMP #### [facility] [address] [place] [address] Dr. Kenneth Grahamirubin [Mass/Vol]1.0 mg/dLNormal0.2-1.0[facility] Comment on above:Performed By: #### LIPID, CMP #### [facility] [address] [address] [address] Kenneth SepulvedaCalcium [Mass/Vol]8.9 mg/dLNormal8.5-10.1[facility] Comment on above:Performed By: #### LIPID, CMP #### [facility] [address] [address] [address] Kenneth SepulvedaChloride [Moles/Vol]98 mmol/OCnnuzu33-107IleOhio Valley Hospital Comment on above:Performed By: #### LIPID, CMP #### [facility] [address] [place] [address] Dr. Kenneth SepulvedaCO2 [Moles/Vol]26.6 mmol/JWdoont00.0-32.0[facility] Comment on above:Performed By: #### LIPID, CMP #### [facility] [address] [place] [address] Dr. Kenneth SepulvedaCreatinine [Mass/Vol]1.17 mg/dLNormal0.70-1.30The City HospitalComment on above:Performed By: #### LIPID, CMP #### [facility] [address] [place] [address] Dr. Kenneth RodriguezGFR-AF LATVIAN>60Normal>=60The City HospitalComment on above:Performed By: #### LIPID, CMP #### [facility] [address] [place] [address] Dr. Kenneth RodriguezGFR-NON AF ZCDXFEIN71 mL/min/1.43r5Jndxdt>=60The City HospitalComment on above:Performed By: #### LIPID, CMP #### [facility] [address] [place] [address] Dr. Kenneth SepulvedaGlobulin (S) [Mass/Vol]3.2 g/dLNormalThe City HospitalComment on above:Performed By: #### LIPID, CMP #### [facility] [address] [address] [address] Kenneth SepulvedaGlucose [Mass/Vol]90 mg/dWBvwspm41-467Bur [facility] Comment on above:Performed By: #### LIPID, CMP #### [facility] [address] [address] [address] Kenneth SepulvedaPotassium [Moles/Vol]3.9 mmol/LNormal3.5-5.1[facility] Comment on above:Performed By: #### LIPID, CMP #### [facility] [address] [place] [address] Dr. Kenneth SepulvedaProtein [Mass/Vol]6.8 g/dLNormal6.4-8.2[facility] Comment on above:Performed By: #### LIPID, CMP #### [facility] [address] [place] [address] Dr. Kenneth SepulvedaSodium [Moles/Vol]135 mmol/LCritically ozz193-334Owj City HospitalComment on above:Performed By: #### LIPID, CMP #### [facility] [address] [place] [address] Dr. Kenneth SepulvedaUrea nitrogen [Mass/Vol]14.0 mg/dLNormal7.0-18.0The City HospitalComment on above:Performed By: #### LIPID, CMP #### [facility] [address] [place] [address] Dr. Kenneth SepulvedaUrea nitrogen/Creatinine [Mass ratio]12.0 mg/mgNormalThe City HospitalComment on above:Performed By: #### LIPID, CMP #### [facility] [address] [place] [address] Dr. Kenneth SepulvedaXR CHEST 2 Von [id number] CHEST 2 VEXAMINATION: XR CHEST 2 V HISTORY: Paroxysmal atrial fibrillation COMPARISON: [...] Electronically authenticated by: BOY ADAME Date: 2021-07-22 13:26[facility] AUTO DIFFon 60-97-9358DPYG #0.0 103/ulNormal0.0-0.1The City HospitalComment on above:Performed By: #### CBC #### [facility] [address] [place] [address] Dr. Kenneth SepulvedaBasophils/100 WBC (Bld)0.5 %Normal0.2-2.0[facility] Comment on above:Performed By: #### CBC #### [facility] [address] [place] [address] Dr. Kenneth Stokes #0.1 103/ulNormal0.0-0.7The City HospitalComment on above: Performed By: #### CBC #### [facility] [address] [place] [address] Dr. Kenneth Rodriguezosinophils/100 WBC (Bld)1.3 %Normal0.9-7.0[facility] Comment on above:Performed By: #### CBC #### [facility] [address] [place] [address] Dr. Kenneth Rodriguezrythrocyte distribution width (RBC) [Ratio]13.2 %Nmwujl66.0-15.0 The City HospitalComment on above:Performed By: #### CBC #### [facility] [address] [place] [address] Dr. Kenneth SepulvedaHematocrit (Bld) [Volume fraction]43.5 %Uhxsri32.0-54.0The City HospitalComment on above:Performed By: #### CBC #### [facility] [address] [place] [address] Dr. Kenneth SepulvedaHemoglobin (Bld) [Mass/Vol]14.5 g/vDEzmjkj49.0-18.0The City HospitalComment on above:Performed By: #### CBC #### [facility] [address] [place] [address] Dr. Kenneth Wan #0.03 10e3/ulNormal0.00-0.03The [facility]Com[facility] on above:Performed By: #### CBC #### [facility] [address] [place] [address] Dr. Kenneth Wan %0.4 %Normal0.0-0.5The City HospitalComment on above: Performed By: #### CBC #### [facility] [address] [place] [address] Dr. Kenneth Lara #2.2 103/ulNormal1.2-3.8The City HospitalComment on above:Performed By: #### CBC #### [facility] [address] [place] [address] Dr. Kenneth Minorhocytes/100 WBC (Bld)27.7 %Cbktzn11.5-60.0The [facility]Com[facility] on above:Performed By: #### CBC #### [facility] [address] [place] [address] Dr. Kenneth SeguraUAL DIFF REQNONormalThe City HospitalComascension [facility] on above: Performed By: #### CBC #### [facility] [address] [place] [address] Dr. Kenneth Stockton (RBC) [Entitic mass]30.4 zoOustan47.9-34.0The [facility]Com[facility] on above:Performed By: #### CBC #### [facility] [address] [place] [address] Dr. Kenneth Stockton (RBC) [Mass/Vol]33.3 g/fSQvyick04.9-35.2The [facility]Com[facility] on above:Performed By: #### CBC #### [facility] [address] [place] [address] Dr. Kenneth Stockton (RBC) [Entitic vol]91.2 oADddqqi60.0-94.0The City HospitalComment on above:Performed By: #### CBC #### [facility] [address] [address] [address] Kenneth Evans #0.5 103/ulNormal0.3-0.8The City HospitalComment on above:Performed By: #### CBC #### [facility] [address] [address] [address] Kenneth Peteocytes/100 WBC (Bld)6.6 %Normal1.7-12.0[facility] Comment on above:Performed By: #### CBC #### [facility] [address] [place] [address] Dr. Kenneth Retana #4.9 103/ulNormal1.4-6.5The City HospitalComment on above:Performed By: #### CBC #### [facility] [address] [place] [address] Dr. Kenneth Asherutrophils/100 WBC (Bld)63.5 %Sqxvgy32.0-75.0The City HospitalComment on above:Performed By: #### CBC #### [facility] [address] [place] [address] Dr. Kenneth Bond mean volume (Bld) [Entitic vol]8.7 fLCritically low 9.5-13.5The City HospitalComment on above:Performed By: #### CBC #### [facility] [address] [place] [address] Dr. Kenneth SepulvedaPLT219 103/edZgnlas634-726Uxd City HospitalComment on above: Performed By: #### CBC #### [facility] [address] [place] [address] Dr. Kenneth SepulvedaRBC4.77 106/ulNormal4.70-6.10The City HospitalComment on above:Performed By: #### CBC #### [facility] [address] [place] [address] Dr. Kenneth SepulvedaWBC7.8 103/ulNormal4.0-11.0The City HospitalComment on above: Performed By: #### CBC #### [facility] [address] [address] [address] Kenneth GascaID PROFILEon 21-97-0749CKME-HDL RATIO NORMSThe Surgical Hospital at SouthwoodsComment on above:Result Comment: 3.3 - 4.4 LOW RISK 4.4 - 7.1 AVERAGE RISK 7.1 - 11.0 MODERATE RISK >11.0 HIGH RISKPerformed By: #### CMP, LIPID #### [facility] [address] [address] [address] Kenneth SepulvedaCholesterol [Mass/Vol]151 mg/dLNormal<=200[facility] Comment on above:Performed By: #### CMP, LIPID #### [facility] [address] [place] [address] Dr. Kenneth SepulvedaCholesterol in HDL [Mass/Vol]45 mg/dLSt. Charles Hospital Comment on above:Performed By: #### CMP, LIPID #### [facility] [address] [address] [address] Kenneth SepulvedaCholesterol in LDL [Mass/Vol]88.4 mg/dLSt. Charles HospitalComment on above:Performed By: #### CMP, LIPID #### [facility] [address] [place] [address] Dr. Kenneth Trammellesteranabella.total/Cholesterol in HDL [Mass ratio]3.4 {ratio} NormalOhio Valley HospitalComment on above:Performed By: #### CMP, LIPID #### [facility] [address] [place] [address] Dr. Kenneth Leonard NORMAL> or = 60 mg/dl - LOW CARDIOVASCULAR RISK <40 mg/dl - HIGH CARDIOVASCULAR RISKSt. Charles HospitalComment on above:Performed By: #### CMP, LIPID #### [facility] [address] [place] [address] Dr. Kenneth SepulvedaLDL CALC NORMALSEE Premier HealthComment on above:Result Comment: <100 mg/dl OPTIMAL 100 - 129 mg/dl NEAR OR ABOVE OPTIMAL 130 - 159 mg/dl BORDERLINE HIGH 160 - 189 mg/dl HIGH >190 mg/dl VERY HIGH Performed By: #### CMP, LIPID #### [facility] [address] [address] [address] Kenneth SepulvedaTriglyceride [Mass/Vol]88 mg/dLNormal<=150[facility] Comment on above:Performed By: #### CMP, LIPID #### [facility] [address] [address] [address] Kenneth SepulvedaVLDL CALC17.6 mg/dLNormalThe City HospitalComment on above: Performed By: #### CMP, LIPID #### [facility] [address] [place] [address] Dr. Kenneth SepulvedaPROF 14(COMP METB)on 45-63-3578Lvdmqhu [Mass/Vol]3.7 g/dLNormal 3.5-5.0The City HospitalComment on above:Performed By: #### CMP, LIPID #### [facility] [address] [place] [address] Dr. Kenneth SepulvedaAlbumin/Globulin [Mass ratio]1.1 {ratio}NormalThe City HospitalComment on above:Performed By: #### CMP, LIPID #### [facility] [address] [place] [address] Dr. Kenneth Kennedy [Catalytic activity/Vol]57 U/IAhczhs30-503Qch City HospitalComment on above:Performed By: #### CMP, LIPID #### [facility] [address] [place] [address] Dr. Kenneth Carrion [Catalytic activity/Vol]20 U/LCritically lkb25-28Bkw City HospitalComment on above:Performed By: #### CMP, LIPID #### [facility] [address] [place] [address] Dr. Kenneth Franco gap [Moles/Vol]9.8 mmol/LNormalThe City HospitalComment on above:Performed By: #### CMP, LIPID #### [facility] [address] [place] [address] Dr. Kenneth Medina [Catalytic activity/Vol]15 U/LCritically oah06-18ToqOhio Valley HospitalComment on above:Performed By: #### CMP, LIPID #### [facility] [address] [address] [address] Kenneth SepulvedaBilirubin [Mass/Vol]0.8 mg/dLNormal0.2-1.3[facility] Comment on above:Performed By: #### CMP, LIPID #### [facility] [address] [place] [address] Dr. Kenneth SepulvedaCalcium [Mass/Vol]9.5 mg/dLNormal8.4-10.2[facility] Comment on above:Performed By: #### CMP, LIPID #### [facility] [address] [place] [address] Dr. Kenneth SepulvedaChloride [Moles/Vol]103 mmol/XJkyqcc02-165LylOhio Valley Hospital Comment on above:Performed By: #### CMP, LIPID #### [facility] [address] [place] [address] Dr. Kenneth SepulvedaCO2 [Moles/Vol]30.0 mmol/SObylsx33.0-30.0[facility] Comment on above:Performed By: #### CMP, LIPID #### [facility] [address] [place] [address] Dr. Kenneth SepulvedaCreatinine [Mass/Vol]1.45 mg/dLCritically high0.66-1.25The City HospitalComment on above:Performed By: #### CMP, LIPID #### [facility] [address] [place] [address] Dr. Kenneth RodriguezGFR-AF FAAXUZUZ02 mL/min/1.97u7Tsttewkkjl low>=60The City HospitalComment on above:Performed By: #### CMP, LIPID #### [facility] [address] [place] [address] Dr. Kenneth RodriguezGFR-NON AF PFVUTPTA58 mL/min/1.22t1Kbxvillceh low>=60The City HospitalComment on above:Performed By: #### CMP, LIPID #### [facility] [address] [place] [address] Dr. Kenneth SepulvedaGlobulin (S) [Mass/Vol]3.4 g/dLNoSelect Medical Specialty Hospital - Cleveland-FairhillComment on above:Performed By: #### CMP, LIPID #### [facility] [address] [address] [address] Kenneth SepulvedaGlucose [Mass/Vol]83 mg/iZOxkvrc94-378NwyOhio Valley Hospital Comment on above:Performed By: #### CMP, LIPID #### [facility] [address] [address] [address] Kenneth SepulvedaPotassium [Moles/Vol]3.8 mmol/LNormal3.4-5.0[facility] Comment on above:Performed By: #### CMP, LIPID #### [facility] [address] [place] [address] Dr. Kenneth SepulvedaProtein [Mass/Vol]7.1 g/dLNormal6.1-8.2[facility] Comment on above:Performed By: #### CMP, LIPID #### [facility] [address] [place] [address] Dr. Kenneth SepulvedaSodium [Moles/Vol]139 mmol/DYkwqvz450-108GddOhio [facility] Comment on above:Performed By: #### CMP, LIPID #### [facility] [address] [place] [address] Dr. Kenneth SepulvedaUrea nitrogen [Mass/Vol]26.0 mg/dLCritically high9.0-20.0[facility] HospitalComment on above:Performed By: #### CMP, LIPID #### [facility] [address] [place] [address] Dr. Kenneth SepulvedaUrea nitrogen/Creatinine [Mass ratio]17.9 mg/mgNoSelect Medical Specialty Hospital - Cleveland-FairhillComment on above:Performed By: #### CMP, LIPID #### [facility] [address] [place] [address] Dr. Kenneth WangSIC METABOLIC PANELon [id number] [Mass/Vol]9.1 mg/dL Normal8.6-10.3TWayne HealthCare Main CampusComment on above:Order Comment: No: Do not add to previous drawPerformed By: #### 72810, 24831 #### [facility] [address] [place] [address], USAChloride [Moles/Vol]100 mmol/XYmjenl93-093Ktl [facility] CenterComment on above:Order Comment: No: Do not add to previous drawPerformed By: #### 12424, 76885 #### [facility] [address] [place] [address], USACO2 [Moles/Vol]25 mmol/AKnedqq27-31Skr [facility] CenterComment on above:Order Comment: No: Do not add to previous draw Performed By: #### 26401, 23534 #### [facility] [address] [place] [address], USACreatinine [Mass/Vol]1.45 mg/dLHigh0.70-1.30The [facility] CenterComment on above:Order Comment: No: Do not add to previous drawPerformed By: #### 21141, 73352 #### [facility] [address] [place] [address], USAeGFR- Cihcckyu72 ml/min/1.73sq mAbnormal>60The [facility] CenterComment on above:Order Comment: No: Do not add to previous drawResult Comment: Calculation may not be valid for patients over 70 yearsPerformed By: #### 74566, 46783 #### [facility] [address] [place] [address], USAeGFR- non- Vbichbjp40 ml/min/1.73sq mAbnormal>60The [facility] CenterComment on above:Order Comment: No: Do not add to previous drawResult Comment: Calculation may not be valid for patients over 70 yearsPerformed By: #### 19023, 39250 #### [facility] [address] [place] [address], USAGlucose [Mass/Vol]93 mg/mRRjbxnm76-564Mkt [facility] CenterComment on above:Order Comment: No: Do not add to previous drawPerformed By: #### 68674, 58682 #### [facility] [address] [place] [address], USAPotassium [Moles/Vol]4.1 mmol/LNormal3.5-5.1The [facility] CenterComment on above:Order Comment: No: Do not add to previous drawPerformed By: #### 23402, 15630 #### [facility] [address] [place] [address], USASodium [Moles/Vol]132 mmol/JEsr352-833Ypv [facility] CenterComment on above:Order Comment: No: Do not add to previous drawPerformed By: #### 32044, 50179 #### [facility] [address] [place] [address], USAUrea nitrogen [Mass/Vol]27 mg/dLHigh7-25The [facility] CenterComment on above:Order Comment: No: Do not add to previous drawPerformed By: #### 59367, 77766 #### [facility] [address] [place] [address], USACBC COMPLETE BLOOD COUNTon 82-03-9625Yzyfugijpdk distribution width (RBC) [Ratio]12.9 %Jsswwo48.5-15.0The [facility] CenterComment on above:Order Comment: No: Do not add to previous draw Performed By: #### 87434 #### [facility] [address] [place] [address], USAHematocrit (Bld) [Volume fraction]39.8 %Jlgsiu96.0-50.0The [facility] CenterComment on above:Order Comment: No: Do not add to previous drawPerformed By: #### 93925 #### [facility] [address] [place] [address], USAHemoglobin (Bld) [Mass/Vol]13.3 g/wZJaploi42.0-17.0The [facility] CenterComment on above:Order Comment: No: Do not add to previous drawPerformed By: #### 31933 #### [facility] [address] [place] [address], [facility] (RBC) [Entitic mass]29.8 zwNcrdoj40.0-33.0The [facility] CenterComment on above:Order Comment: No: Do not add to previous drawPerformed By: #### 06255 #### [facility] [address] [place] [address], [facility] HOSPITALMCHC (RBC) [Mass/Vol]33.4 g/yRDuolqo70.0-35.0The [facility] CenterComment on above:Order Comment: No: Do not add to previous drawPerformed By: #### 50913 #### [facility] [address] [place] [address], [facility] HOSPITALMCV (RBC) [Entitic vol]89.0 iTYbbcpj64.0-98.0The [facility] CenterComment on above:Order Comment: No: Do not add to previous drawPerformed By: #### 01976 #### [facility] [address] [place] [address], USANucleated RBC/100 WBC (Bld) [Ratio]0 %Normal0-0The [facility] CenterComment on above:Order Comment: No: Do not add to previous drawPerformed By: #### 10488 #### [facility] [address] [place] [address], USAPLAT FDZ695 10*3/sEBsntcb636-778Jvj [facility] CenterComment on above:Order Comment: No: Do not add to previous draw Performed By: #### 97425 #### [facility] [address] [place] [address], USARBC (Bld) [#/Vol]4.47 10*6/uLNormal4.20-5.70The [facility] CenterComment on above:Order Comment: No: Do not add to previous drawPerformed By: #### 64808 #### [facility] [address] [place] [address], [facility] HOSPITALWBC (Bld) [#/Vol]9.70 10*3/uLNormal4.00-10.60The [facility] CenterComment on above:Order Comment: No: Do not add to previous drawPerformed By: #### 60116 #### [facility] [address] [facility] [place] [place] [address], USACardiovascular Lab Reporton [id number] Lab ReportUnSycamore Medical Center Patient Name: [facility] Nette Bryan MR #: [id number] Department of Physician: Evelyn Nunez Medicine M.DSejal Division of Service Date: 11/02/2020 Cardiology Birthdate: 1940 Adult Cardiovascular Room #: 3AB [id number] [place] [address] Cardiovascular Laboratory Report CLINICAL PRESENTATION: The patient [...] High-intensity statin therapy. 5. Outpatient followup with [facility]. 6. Referral to cardiac rehabilitation. PROCEDURES: [...] infiltrated over the right radial artery. A 6-Martiniquais Terumo Glidesheath slender was placed in right radial artery. The radial anti-vasospasm cocktail, nitroglycerin 200 mcg and verapamil 2.5 mg were administered through the sheath. All catheter exchanges were made over the [employer] guidewire. A 6-Martiniquais JR5 used to engage the right coronary artery. A 6-Martiniquais JL3.5 was used to engage the left main coronary artery. Coronary angiograms performed in multiple orthogonal views using hand injection of contrast. At this time, it was apparent that the mid LAD had 80% stenosis. I elected to proceed with PCI. Heparin anticoagulation was used for this procedure. ACT was maintained greater than 200 seconds. A Medtronic EBU 4.0 guide was engaged in left [...] is otherwise patent. Electronically Signed by: Evelyn Nunez M.D. 11/03/2020 05:44 P Evelyn Nunez M.D. Date Dict: 11/02/2020/03:45 P/Evelyn Nunez M.D. Date Trans: 11/02/2020 10:36 P/mmo DN_[id number] cc: Cedric Carr M.D. [address] [facility] [id number] Braeden Schaefer M.D. [address] [facility] [address]CsczcjAjkThe Bellevue HospitalBASIC METABOLIC PANEL on 19-15-5750Utlkrqr [Mass/Vol]9.2 mg/dLNormal8.6-10.3The [facility] CenterComment on above:Order Comment: No: Do not add to previous draw Performed By: #### 33263, 67432, 13460 #### [facility] [address] [place] [address], USAChloride [Moles/Vol]102 mmol/YArydcg06-440Noq [facility] CenterComment on above:Order Comment: No: Do not add to previous drawPerformed By: #### 39585, 00301, 59786 #### [facility] [address] [place] [address], USACO2 [Moles/Vol]24 mmol/MQsblbr40-24Qit [facility] CenterComment on above:Order Comment: No: Do not add to previous draw Performed By: #### 30403, 20675, 90947 #### [facility] [address] [place] [address], USACreatinine [Mass/Vol]1.44 mg/dLHigh0.70-1.30The [facility] CenterComment on above:Order Comment: No: Do not add to previous drawPerformed By: #### 56108, 90263, 29717 #### [facility] [address] [place] [address], USAeGFR- Qdzhurfd74 ml/min/1.73sq mAbnormal>60The [facility] CenterComment on above:Order Comment: No: Do not add to previous drawResult Comment: Calculation may not be valid for patients over 70 yearsPerformed By: #### 23242, 98944, 42088 #### [facility] [address] [place] [address], USAeGFR- non- Ifrerfaz84 ml/min/1.73sq mAbnormal>60The [facility] CenterComment on above:Order Comment: No: Do not add to previous drawResult Comment: Calculation may not be valid for patients over 70 yearsPerformed By: #### 77039, 22686, 56456 #### [facility] [address] [place] [address], USAGlucose [Mass/Vol]90 mg/fLYpjqjx91-364Cil [facility] CenterComment on above:Order Comment: No: Do not add to previous drawPerformed By: #### 67809, 67867, 22068 #### [facility] [address] [place] [address], USAPotassium [Moles/Vol]3.4 mmol/LLow3.5-5.1The [facility] CenterComment on above:Order Comment: No: Do not add to previous drawPerformed By: #### 87696, 25056, 58285 #### [facility] [address] [place] [address], USASodium [Moles/Vol]136 mmol/DNrnlpj694-391Gis [facility] CenterComment on above:Order Comment: No: Do not add to previous drawPerformed By: #### 23156, 82128, 69907 #### [facility] [address] [facility] [place] [address], USAUrea nitrogen [Mass/Vol]21 mg/dLNormal7-25The [facility] CenterComment on above:Order Comment: No: Do not add to previous drawPerformed By: #### 51687, 44813, 84705 #### [facility] [address] [facility] [place] [address], USACBC COMPLETE BLOOD COUNTon 00-87-0114Phaaftyewli distribution width (RBC) [Ratio]13.1 %Zgsvmc96.5-15.0The [facility] CenterComment on above:Order Comment: No: Do not add to previous draw Performed By: #### 69039 #### [facility] [address] [facility] [place] [address], USAHematocrit (Bld) [Volume fraction]40.9 %Imwnmf52.0-50.0The [facility] CenterComment on above:Order Comment: No: Do not add to previous drawPerformed By: #### 85425 #### [facility] [address] [facility] [place] [address], USAHemoglobin (Bld) [Mass/Vol]13.6 g/hVNmlxsf18.0-17.0The [facility] CenterComment on above:Order Comment: No: Do not add to previous drawPerformed By: #### 35918 #### [facility] [address] [place] [address], [facility] (RBC) [Entitic mass]29.8 asIvghvz84.0-33.0The [facility] CenterComment on above:Order Comment: No: Do not add to previous drawPerformed By: #### 71158 #### [facility] [address] [place] [address], [facility] CITYHC (RBC) [Mass/Vol]33.3 g/iGBrxruc72.0-35.0The [facility] CenterComment on above:Order Comment: No: Do not add to previous drawPerformed By: #### 11343 #### [facility] [address] [place] [address], [facility]V (RBC) [Entitic vol]89.7 xVCnnxvw68.0-98.0The [facility] CenterComment on above:Order Comment: No: Do not add to previous drawPerformed By: #### 98109 #### [facility] [address] [place] [address], [facility] HOSPITALNucleated RBC/100 WBC (Bld) [Ratio]0 %Normal0-0The [facility] CenterComment on above:Order Comment: No: Do not add to previous drawPerformed By: #### 46149 #### [facility] [address] [place] [address], USAPLAT BRX065 10*3/jCOwwfbd240-433Gcf [facility] CenterComment on above:Order Comment: No: Do not add to previous draw Performed By: #### 12831 #### [facility] [address] [facility] [place] [address], [facility] HOSPITALRBC (Bld) [#/Vol]4.56 10*6/uLNormal4.20-5.70The [facility] CenterComment on above:Order Comment: No: Do not add to previous drawPerformed By: #### 03609 #### [facility] [address] [place] [address], USAWBC (Bld) [#/Vol]7.38 10*3/uLNormal4.00-10.60The [facility] CenterComment on above:Order Comment: No: Do not add to previous drawPerformed By: #### 55103 #### [facility] [address] [place] [address], USAMAGNESIUM BLOODon 27-03-9108Rnhuoqtdh [Mass/Vol]1.6 mg/dL Low1.9-2.7The [facility] CenterComment on above:Order Comment: No: Do not add to previous drawPerformed By: #### 11111, 56000, 34517 #### [facility] [address] [place] [address], USAPOC GLUCOSE LABon 71-68-2836Vydlulb [Mass/Vol]92 mg/dL Iwicdx01-401Tyw [facility] CenterComment on above:Performed By: #### 08572 #### [facility] [address] [place] [address], USATROPONIN-Ion 21-95-4529Mqnnuana I.cardiac [Mass/Vol]0.21 ng/mLCritically high0.00-0.04The [facility] CenterComment on above:Order Comment: No: Do not add to previous drawResult Comment: M-PREVIOUS CRITICAL RESULT REFERENCE RANGES: 0.00 - 0.04 ng/ml NORMAL 0.05 - 0.50 ng/ml INDETERMINATE > 0.50 ng/ml CONSISTENT WITH AN M.I.Performed By: #### 64497, 07830, 23559 #### [facility] [address] [place] [address], USAUFH HEPARIN ASSAYon 33-55-5225RBVMQVMEHEPIHK HEPARIN0.91 IU/mLCritically high0.30-0.70The [facility] CenterComment on above:Result Comment: Rivaroxaban and Apixaban will interfere with the anti Xa assay used to monitor UFH and LMWH. Results called. Accurately read back by Stephanie Moore RN at 1217Performed By: #### 31728, 58989, 95821, 78140 #### [facility] [address] [place] [address], USAUNFRACTIONATED HEPARIN0.75 IU/mLHigh0.30-0.70The [facility] CenterComment on above:Result Comment: Rivaroxaban and Apixaban will interfere with the anti Xa assay used to monitor UFH and LMWH.Performed By: #### 64401 #### [facility] [address] [facility] [place] [address], USAAPTTon [id number] Coag (Bld) [Time]28.5 sNormal 25.0-35.0The [facility] CenterComment on above:Order Comment: No: Do not add to previous drawResult Comment: ALL RESULTS MUST BE INTERPRETED WITH RESPECT TO BLOOD DRAWING ARTIFACT OR DILUTION ERROR OF ANTICOAGULANT AT THE TIME OF SAMPLING. THE APTT SHOULD NOT BE USED TO MONITOR UNFRACTIONATED HEPARIN THERAPY, THIS LABORATORY NO LONGER HAS AN ESTABLISHED THERAPEUTIC RANGE BASED ON THE APTT. IT IS RECOMMENDED THAT THE UFH - HEPARIN ASSAY (ANTI-XA ACTIVITY) BE USED FOR THIS PURPOSE.Performed By: #### 98212, 19638 #### [facility] [address] [facility] [place] [address], USABASIC METABOLIC PANELon [id number] [Mass/Vol]9.5 mg/dLNormal8.6-10.3The [facility] CenterComment on above:Order Comment: No: Do not add to previous drawPerformed By: #### 17391, 37426 #### [facility] [address] [place] [address], USAChloride [Moles/Vol]102 mmol/BKbqttl57-006Zrd [facility] CenterComment on above:Order Comment: No: Do not add to previous drawPerformed By: #### 40486, 02287 #### [facility] [address] [place] [address], USACO2 [Moles/Vol]27 mmol/LZjrxea91-34Yqr [facility] CenterComment on above:Order Comment: No: Do not add to previous draw Performed By: #### 70350, 53162 #### [facility] [address] [place] [address], USACreatinine [Mass/Vol]1.39 mg/dLHigh0.70-1.30The [facility] CenterComment on above:Order Comment: No: Do not add to previous drawPerformed By: #### 71257, 75886 #### [facility] [address] [place] [address], USAeGFR- Iafkskvp91 ml/min/1.73sq mAbnormal>60The [facility] CenterComment on above:Order Comment: No: Do not add to previous drawResult Comment: Calculation may not be valid for patients over 70 yearsPerformed By: #### 22213, 89429 #### [facility] [address] [place] [address], USAeGFR- non- Yyufwqha24 ml/min/1.73sq mAbnormal>60The [facility] CenterComment on above:Order Comment: No: Do not add to previous drawResult Comment: Calculation may not be valid for patients over 70 yearsPerformed By: #### 05771, 88493 #### [facility] [address] [place] [address], USAGlucose [Mass/Vol]93 mg/fTOzclyp60-215Ajo [facility] CenterComment on above:Order Comment: No: Do not add to previous drawPerformed By: #### 49363, 46945 #### [facility] [address] [place] [address], USAPotassium [Moles/Vol]3.8 mmol/LNormal3.5-5.1The [facility] CenterComment on above:Order Comment: No: Do not add to previous drawPerformed By: #### 87913, 55015 #### [facility] [address] [place] [address], USASodium [Moles/Vol]138 mmol/WKvzmqd620-231Wed [facility] CenterComment on above:Order Comment: No: Do not add to previous drawPerformed By: #### 24910, 46558 #### [facility] [address] [place] [address], USAUrea nitrogen [Mass/Vol]20 mg/dLNormal7-25The [facility] CenterComment on above:Order Comment: No: Do not add to previous drawPerformed By: #### 41892, 86056 #### [facility] [address] [place] [address], USACBC COMPLETE BLOOD COUNTon [id number] distribution width (RBC) [Ratio]12.9 %Yffrgi48.5-15.0The [facility] CenterComment on above:Order Comment: No: Do not add to previous draw Performed By: #### 03681 #### [facility] [address] [place] [address], USAHematocrit (Bld) [Volume fraction]41.9 %Qthblc06.0-50.0The [facility] CenterComment on above:Order Comment: No: Do not add to previous drawPerformed By: #### 95655 #### [facility] [address] [place] [address], USAHemoglobin (Bld) [Mass/Vol]13.8 g/uPOwshwc51.0-17.0The [facility] CenterComment on above:Order Comment: No: Do not add to previous drawPerformed By: #### 73268 #### [facility] [address] [place] [address], USAMCH (RBC) [Entitic mass]30.0 hyVahbno40.0-33.0The [facility] CenterComment on above:Order Comment: No: Do not add to previous drawPerformed By: #### 11518 #### [facility] [address] [place] [address], [facility] (RBC) [Mass/Vol]32.9 g/uFWmcbly31.0-35.0The [facility] CenterComment on above:Order Comment: No: Do not add to previous drawPerformed By: #### 03864 #### [facility] [address] [facility] [place] [id number], [facility] (RBC) [Entitic vol]91.1 jIXfszsi42.0-98.0The [facility] CenterComment on above:Order Comment: No: Do not add to previous drawPerformed By: #### 55394 #### [facility] [address] [place] [address], [facility] HOSPITALNucleated RBC/100 WBC (Bld) [Ratio]0 %Normal0-0The [facility] CenterComment on above:Order Comment: No: Do not add to previous drawPerformed By: #### 91433 #### [facility] [address] [facility] [place] [address], [facility] HOSPITALPLAT BQQ686 10*3/jRTsoagq249-603Zwo [facility] CenterComment on above:Order Comment: No: Do not add to previous draw Performed By: #### 31762 #### [facility] [address] [facility] [place] [address], [facility] HOSPITALRBC (Bld) [#/Vol]4.60 10*6/uLNormal4.20-5.70The [facility] CenterComment on above:Order Comment: No: Do not add to previous drawPerformed By: #### 59273 #### [facility] [address] [place] [address], USAWBC (Bld) [#/Vol]8.65 10*3/uLNormal4.00-10.60The [facility] CenterComment on above:Order Comment: No: Do not add to previous drawPerformed By: #### 19802 #### [facility] [address] [place] [address], USAFREE T3on 26-22-7881Yvyt T3 [Mass/Vol]2.8 pg/mLNormal 2.5-3.9The [facility] CenterComment on above:Order Comment: Yes: Add to Previous draw if ablePerformed By: #### 12362, 18348 #### [facility] [address] [place] [address], USAFREE T4on 44-41-0483Rnqr T4 [Mass/Vol]0.80 ng/dLNormal 0.71-1.85The [facility] CenterComment on above:Order Comment: Yes: Add to Previous draw if ablePerformed By: #### 05275, 64848 #### [facility] [address] [place] [address], USAHEMOGLOBIN A1Con 48-44-6500Wgzizsw [Moles/Vol]114 mmol/L NormalThe [facility] Medical CenterComment on above:Order Comment: Yes: Add to Previous draw if ablePerformed By: #### 21552, 84649 #### [facility] [address] [place] [address], SDLKnT8h (Bld) [Mass fraction]5.6 %Normal4.0-6.0The [facility] CenterComment on above:Order Comment: Yes: Add to Previous draw if ablePerformed By: #### 74456, 91737 #### [facility] [address] [place] [address], USALIPID PROFILEon 21-87-7399Ugaqfkgeytz [Mass/Vol]173 mg/dL Kacjkj350-624Wtx [facility] CenterComment on above:Result Comment: CHOLESTEROL REFERENCE RANGE: 20 YEARS AND OLDER CARDIOVASCULAR RISK Less than 200 mg/dl Low Risk 200 to 239 mg/dl Borderline Risk 240 mg/dl and greater High RiskPerformed By: #### 45523, 60945 #### [facility] [address] [place] [address], USACholesterol in HDL [Mass/Vol]44 mg/gUDwompg42-60Xeg [facility] CenterComment on above:Result Comment: Slight variation in normal range could be due to gender and/or age. HDL CHOLESTEROL REFERENCE RANGE: 20 years and older Cardiovascular Risk > or =60 mg/dL Desirable 40 TO 59 mg/dL Low Risk <40 mg/dL High RiskPerformed By: #### 28529, 93766 #### [facility] [address] [facility] [place] [place] [address], USACholesterol in LDL [Mass/Vol]115 mg/dLNormal0-130The [facility] CenterComment on above:Result Comment: LDL IS A CALCULATION LDL IS ONLY VALID IF THE TRIG IS LESS THAN 400.Performed By: #### 57312, 83230 #### [facility] [address] [facility] [place] [address], USACholesterol.total/Cholesterol in HDL [Mass ratio]3.9 {ratio}Normal0.0-4.5The [facility] CenterComment on above: Performed By: #### 90709, 37972 #### [facility] [address] [facility] [place] [address], USANON-HDL DZGLLKEUGZG122 mg/dLNormalThe [facility] CenterComment on above:Performed By: #### 06044, 51095 #### [facility] [address] [facility] [place] [address], USATriglyceride [Mass/Vol]70 mg/iAXazxau62-377Ttz [facility] CenterComment on above:Result Comment: TRIGLYCERIDE REFERENCE RANGE: 20 YEARS AND OLDER CARDIOVASCULAR RISK LESS THAN 150 mg/dl LOW RISK 150 TO 199 mg/dl BORDERLINE RISK 200 mg/dl AND GREATER HIGH RISKPerformed By: #### 98402, 44941 #### [facility] [address] [place] [address], USAVLDL CHOL14 mg/dLNormal0-40The [facility] CenterComment on above:Performed By: #### 12853, 15109 #### [facility] [address] [place] [address], USAMAGNESIUM BLOODon 06-97-9679Djpkagcgx [Mass/Vol]2.6 mg/dL Normal1.9-2.7The [facility] Medical CenterComment on above:Order Comment: No: Do not add to previous drawPerformed By: #### 91999, 70215 #### [facility] [address] [place] [address], USAPHOSPHORUS BLOODon [id number] [Mass/Vol]2.9 mg/dL Normal2.5-5.0The [facility] Medical CenterComment on above:Order Comment: No: Do not add to previous drawPerformed By: #### 06673, 56525 #### [facility] [address] [place] [address], USAPROCALCITONINon [id number] ng/mLNormal 0.00-0.10The [facility] Medical CenterComment on above:Order Comment: No: Do not add to previous drawResult Comment: Suspected Lower Respiratory Tract Infection: 0.1-0.25ng/mL- Low likelihood for bacterial infection;Antibiotics discouraged.* >0.25ng/mL- Increased likelihood bacterial infection;Antibiotics encouraged. Suspected Sepsis: Strongly consider initiating antibiotics in all unstable patients. 0.1-0.5ng/mL- Low likelihood for sepsis; Antibiotics discouraged.* >0.5ng/mL- Increased likelihood sepsis; Antibiotics encouraged. >2.0ng/mL- High risk of sepsis/septic shock; Antibiotics strongly encouraged. *Recommend retesting PCT within 6-12hours if clinically indicated and initial PCT<0.5ng/mLPerformed By: #### 74840 #### [facility] [address] [facility] [place] [place] [address], USATROPONIN-Ion [id number] I.cardiac [Mass/Vol]0.39 ng/mLCritically high0.00-0.04The [facility] Medical CenterComment on above:Order Comment: No: Do not add to previous drawResult Comment: M-PREVIOUS CRITICAL RESULT REFERENCE RANGES: 0.00 - 0.04 ng/ml NORMAL 0.05 - 0.50 ng/ml INDETERMINATE > 0.50 ng/ml CONSISTENT WITH AN M.I.Performed By: #### 97357, 32409 #### [facility] [address] [facility] [place] [place] [address], USAUFH HEPARIN ASSAYon [id number] HEPARIN0.82 IU/mLHigh0.30-0.70The [facility] Medical CenterComment on above:Result Comment: Rivaroxaban and Apixaban will interfere with the anti Xa assay used to monitor UFH and LMWH.Performed By: #### 90999, 58334, 20527, 82232 #### [facility] [address] [facility] [place] [address], USAUNFRACTIONATED HEPARIN0.73 IU/mLHigh0.30-0.70The [facility] Medical CenterComment on above:Result Comment: Rivaroxaban and Apixaban will interfere with the anti Xa assay used to monitor UFH and LMWH.Performed By: #### 56060, 22222, 23888, 54693 #### [facility] [address] [place] [address], USAUNFRACTIONATED HEPARIN0.95 IU/mLCritically high0.30-0.70The [facility] Medical CenterComment on above:Result Comment: Rivaroxaban and Apixaban will interfere with the anti Xa assay used to monitor UFH and LMWH. RESULTS CHECKED AND CALLED. ACCURATELY READ BACK BY THERESA SANTO RN AT 0540Performed By: #### 44620 #### [facility] [address] [place] [address], USAUNFRACTIONATED HEPARIN<0.10Critically low0.30-0.70The [facility] Medical CenterComment on above:Result Comment: Rivaroxaban and Apixaban will interfere with the anti Xa assay used to monitor UFH and LMWH. Results called. Accurately read back by Theresa Santo RN, CVU 3A patient's nurse, at 2316, 31-Oct-2020.Performed By: #### 22822, 07513 #### [facility] [address] [facility] [place] [address], USABNP (B-TYPE NATRIURETIC PEPTIDE)on [id number] peptide B (Bld) [Mass/Vol]345 pg/mLHigh0-100The [facility] Medical CenterComment on above:Order Comment: No: Do not add to previous drawResult Comment: Given the appropriate clinical setting a BNP result of >100 pg/mL indicates congestive heart failure.Performed By: #### 65205 #### [facility] [address] [place] [address], USACBC W/DIFFon [id number] IMM GRANS0.0 10*3/uLNormal 0.0-0.2The [facility] Medical CenterComment on above:Order Comment: No: Do not add to previous drawPerformed By: #### 21922 #### [facility] [address] [place] [address], USAABS NEUTROPHILS4.6 10*3/uLNormal1.6-7.6The [facility] Medical CenterComment on above:Order Comment: No: Do not add to previous drawPerformed By: #### 46592 #### [facility] [address] [facility] [place] [address], USABasophils (Bld) [#/Vol]0.0 10*3/uLNormal0.0-0.2The [facility] Medical CenterComment on above:Order Comment: No: Do not add to previous drawPerformed By: #### 92597 #### [facility] [address] [facility] [place] [address], USABasophils/100 WBC (Bld)0.6 %Normal0.0-1.0The [facility] Medical CenterComment on above:Order Comment: No: Do not add to previous drawPerformed By: #### 15631 #### [facility] [address] [facility] [place] [place] [address], USAEosinophils (Bld) [#/Vol]0.1 10*3/uLNormal0.0-0.5The [facility] Medical CenterComment on above:Order Comment: No: Do not add to previous drawPerformed By: #### 08221 #### [facility] [address] [facility] [place] [address], USAEosinophils/100 WBC (Bld)2.0 %Normal0.0-6.0The [facility] Medical CenterComment on above:Order Comment: No: Do not add to previous drawPerformed By: #### 41741 #### [facility] [address] [facility]. [place] [id number], USAErythrocyte distribution width (RBC) [Ratio]13.1 %Normal 11.5-15.0The [facility] Medical CenterComment on above:Order Comment: No: Do not add to previous drawPerformed By: #### 48391 #### [facility] [address] [facility] [place] [address], USAHematocrit (Bld) [Volume fraction]42.5 %Ezmvqz22.0-50.0The [facility] Medical CenterComment on above:Order Comment: No: Do not add to previous drawPerformed By: #### 14550 #### [facility] [address] [place] [address], USAHemoglobin (Bld) [Mass/Vol]14.4 g/fEMtlgfh26.0-17.0The [facility] Medical CenterComment on above:Order Comment: No: Do not add to previous drawPerformed By: #### 84575 #### [facility] [address] [facility] [place] [address], USAIMMATURE GRANS0.3 %Normal0.0-1.0The [facility] Medical CenterComment on above:Order Comment: No: Do not add to previous draw Performed By: #### 62447 #### [facility] [address] [facility] [place] [address], USALymphocytes (Bld) [#/Vol]1.9 10*3/uLNormal1.2-4.0The [facility] Medical CenterComment on above:Order Comment: No: Do not add to previous drawPerformed By: #### 38906 #### [facility] [address] [facility] [place] [address], USALymphocytes/100 WBC (Bld)26.8 %Gwssud10.0-45.0The [facility] Medical CenterComment on above:Order Comment: No: Do not add to previous drawPerformed By: #### 40447 #### [facility] [address] [place] [address], USAMCH (RBC) [Entitic mass]30.1 yoAjznfe96.0-33.0The [facility] Medical CenterComment on above:Order Comment: No: Do not add to previous drawPerformed By: #### 83039 #### [facility] [address] [place] [address], [facility] HOSPITALMCHC (RBC) [Mass/Vol]33.9 g/dBKvuput80.0-35.0The [facility] Medical CenterComment on above:Order Comment: No: Do not add to previous drawPerformed By: #### 49297 #### [facility] [address] [place] [address], [facility] HOSPITALMCV (RBC) [Entitic vol]88.7 eWLynvyo94.0-98.0The [facility] Medical CenterComment on above:Order Comment: No: Do not add to previous drawPerformed By: #### 02665 #### [facility] [address] [place] [address], [facility] HOSPITALMonocytes (Bld) [#/Vol]0.4 10*3/uLNormal0.1-1.0The [facility] Medical CenterComment on above:Order Comment: No: Do not add to previous drawPerformed By: #### 53363 #### [facility] [address] [place] [address], USAMONOS6.0 %Normal5.0-12.0The [facility] Medical CenterComment on above:Order Comment: No: Do not add to previous drawPerformed By: #### 19580 #### [facility] [address] [facility] [place] [address], USANeutrophils/100 WBC (Bld)64.3 %Efjohy01.0-72.0The [facility] Medical CenterComment on above:Order Comment: No: Do not add to previous drawPerformed By: #### 46366 #### [facility] [address] [place] [address], USANucleated RBC/100 WBC (Bld) [Ratio]0 %Normal0-0The [facility] Medical CenterComment on above:Order Comment: No: Do not add to previous drawPerformed By: #### 53575 #### [facility] [address] [place] [address], USAPLAT OYI790 10*3/fDLehziu004-112Ojt [facility] Medical CenterComment on above:Order Comment: No: Do not add to previous draw Performed By: #### 49066 #### [facility] [address] [place] [address], USARBC (Bld) [#/Vol]4.79 10*6/uLNormal4.20-5.70The [facility] Medical CenterComment on above:Order Comment: No: Do not add to previous drawPerformed By: #### 28370 #### [facility] [address] [place] [address], USAWBC (Bld) [#/Vol]7.16 10*3/uLNormal4.00-10.60The [facility] Medical CenterComment on above:Order Comment: No: Do not add to previous drawPerformed By: #### 51016 #### [facility] [address] [place] [address], USACOMP METABOLIC PANELon 64-14-1598Czbifzh [Mass/Vol]4.0 g/dL Normal3.5-5.7The [facility] Medical CenterComment on above:Order Comment: No: Do not add to previous drawPerformed By: #### 10641, 27712, 68921, 01185 #### [facility] [address] [place] [address], USAALKALINE UFVGHN14 IU/MRtufqj26-537Dgr [facility] CenterComment on above:Order Comment: No: Do not add to previous draw Performed By: #### 55469, 19341, 48948, 71418 #### [facility] [address] [place] [address], USAALT [Catalytic activity/Vol]11 U/LNormal7-52The [facility] CenterComment on above:Order Comment: No: Do not add to previous drawPerformed By: #### 24383, 09618, 50952, 86837 #### [facility] [address] [place] [address], USAAST [Catalytic activity/Vol]17 U/RPkcgdk65-32Asq [facility] CenterComment on above:Order Comment: No: Do not add to previous drawPerformed By: #### 13875, 55694, 37138, 53377 #### [facility] [address] [place] [address], USABilirubin [Mass/Vol]0.4 mg/dLNormal0.3-1.0The [facility] CenterComment on above:Order Comment: No: Do not add to previous drawPerformed By: #### 95328, 16438, 73334, 20875 #### [facility] [address] [place] [address], USACalcium [Mass/Vol]9.6 mg/dLNormal8.6-10.3The [facility] CenterComment on above:Order Comment: No: Do not add to previous drawPerformed By: #### 31053, 88523, 40479, 01248 #### [facility] [address] [place] [address], USAChloride [Moles/Vol]100 mmol/MHpmaac46-029Voo [facility] CenterComment on above:Order Comment: No: Do not add to previous drawPerformed By: #### 15492, 69525, 43284, 67169 #### [facility] [address] [place] [address], USACO2 [Moles/Vol]30 mmol/IWhmlel91-84Zsz [facility] CenterComment on above:Order Comment: No: Do not add to previous draw Performed By: #### 38175, 51667, 65111, 92133 #### [facility] [address] [place] [address], USACreatinine [Mass/Vol]1.37 mg/dLHigh0.70-1.30The [facility] CenterComment on above:Order Comment: No: Do not add to previous drawPerformed By: #### 56460, 19478, 89374, 08825 #### [facility] [address] [place] [address], USAeGFR- Aiybahea43 ml/min/1.73sq mAbnormal>60The [facility] Medical CenterComment on above:Order Comment: No: Do not add to previous drawResult Comment: Calculation may not be valid for patients over 70 yearsPerformed By: #### 65391, 53492, 01467, 73237 #### [facility] [address] [place] [address], USAeGFR- non- Scztybrw65 ml/min/1.73sq mAbnormal>60The [facility] CenterComment on above:Order Comment: No: Do not add to previous drawResult Comment: Calculation may not be valid for patients over 70 yearsPerformed By: #### 31109, 53830, 10242, 77408 #### [facility] [address] [place] [address], USAGlucose [Mass/Vol]99 mg/tKHdmwkd15-681Hox [facility] CenterComment on above:Order Comment: No: Do not add to previous drawPerformed By: #### 69686, 42339, 38254, 14960 #### [facility] [address] [place] [address], USAPotassium [Moles/Vol]3.5 mmol/LNormal3.5-5.1The [facility] CenterComment on above:Order Comment: No: Do not add to previous drawPerformed By: #### 17399, 26122, 55707, 46005 #### [facility] [address] [place] [address], USAProtein [Mass/Vol]6.8 g/dLNormal6.0-8.3The [facility] CenterComment on above:Order Comment: No: Do not add to previous drawPerformed By: #### 20927, 81967, 62023, 22830 #### [facility] [address] [place] [address], USASodium [Moles/Vol]139 mmol/RIlklpe287-570Awu [facility] CenterComment on above:Order Comment: No: Do not add to previous drawPerformed By: #### 21663, 33826, 32761, 59268 #### [facility] [address] [place] [address], USAUrea nitrogen [Mass/Vol]21 mg/dLNormal7-25The [facility] CenterComment on above:Order Comment: No: Do not add to previous drawPerformed By: #### 69519, 74583, 54842, 74250 #### [facility] [address] [place] [address], USAD DIMER TESTon [id number]-DIMER TEST0.64 mcg/mL FEUHigh 0.27-0.49The [facility] Medical CenterComment on above:Order Comment: No: Do not add to previous drawResult Comment: D-Dimer values of less than 0.50 ug/ml (FEU) are considered to be a negative predictor of thrombosis. However, the D-Dimer result should be used in conjunction with pretest probability and should not be used alone to diagnose a thrombotic event.Performed By: #### 64424 #### [facility] [address] [place] [address], USAMAGNESIUM BLOODon 04-85-4206Eyzyilwlb [Mass/Vol]1.5 mg/dL Low1.9-2.7The [facility] Medical CenterComment on above:Order Comment: No: Do not add to previous drawPerformed By: #### 28539, 92885, 55941, 05397 #### [facility] [address] [place] [address], USATROPONIN-Ion 38-83-0318Vpfagfyx I.cardiac [Mass/Vol]0.57 ng/mLCritically high0.00-0.04The [facility] Medical CenterComment on above:Order Comment: No: Do not add to previous drawResult Comment: M-CRITICAL RESULT(S) REVIEWED, CALLED TO AND READ BACK BY FELECIA CANCHOLA @[facility]2 10.31.20 REFERENCE RANGES: 0.00 - 0.04 ng/ml NORMAL 0.05 - 0.50 ng/ml INDETERMINATE > 0.50 ng/ml CONSISTENT WITH AN M.I.Performed By: #### 58555, 62908, 11743, 30682 #### [facility] [address] [place] [address], MWIBFS2tz [id number] 3RD GENERATION6.84 uIU/mLHigh0.34-5.60 The [facility] Medical CenterComment on above:Order Comment: No: Do not add to previous drawPerformed By: #### 53344, 90292, 35827, 68018 #### [facility] [address] [place] [address], [facility] HOSPITALCB Auto Differentialon [id number] (Bld) [#/Vol] 0.00 10*3/uLUniversity [facility]als [facility]- [place], KYBasophils/100 WBC (Bld)0 %0 - 2 %[facility]- [place], KYDifferential TypeYESMerc Health- [place], KYEosinophils (Bld) [#/Vol]0.20 10*3/uLMercy Health- [place], KYEosinophils/100 WBC (Bld)2 %0 - 5 %[facility]- [place], KYErythrocyte distribution width (RBC) [Ratio]13.8 %12.1 - 15.2 %[facility]- [place], KYHematocrit (Bld) [Volume fraction]42.1 %41 - 53 %[facility]- [place], [place] Hemoglobin (Bld) [Mass/Vol]14.3 g/dL13.5 - 17.5 g/dLUniversity Hospitals Tripoint [facility]- [place], [place] Lymphocytes (Bld) [#/Vol]2.60 10*3/[facility], KYLymphocytes/100 WBC (Bld)35 %13 - 44 %[facility], FLMCH (RBC) [Entitic mass]31.0 pg26 - 34 pg [facility], FLMCHC (RBC) [Mass/Vol]33.9 g/dL31 - 37 g/dLK[facility]tering Health [facility], FLMCV (RBC) [Entitic vol]91.5 fL80 - 100 fLKettering Health [facility], KYMonocytes (Bld) [#/Vol]0.40 10*3/[facility], KYMonocytes/100 WBC (Bld)6 %5 - 9 %[facility], FLPlatelet mean volume (Bld) [Entitic vol]NOT REPORTED6 - 12 fLKettering Health [facility], KYPlatelets (Bld) [#/Vol]NOT REPORTEDKettering Health [facility], KYPlatelets (Bld) [#/Vol]274 10*3/[facility], KYRBC (Bld) [#/Vol]4.60 10*6/uL4.5 - 5.9 m/[facility], FLRBC morphology finding Nom (Bld)NOT REPORTEDK[facility]tering Health [facility], FLSegmented neutrophils/100 WBC (Bld)57 %39 - 75 %[facility], FLSegs Absolute4.20[facility], KYWBC (Bld) [#/Vol]7.4 10*3/[facility], KYWBC (Bld) [#/Vol]NOT REPORTEDper 100 WBCKettering Health [facility], KYWBC MorphologyNOT REPORTEDK[facility]tering Health [facility], FLCBC with Diffon [id number]. Basophil0.00 k/uLNormal0.0-0.2M[facility] centery [facility] Rehabilitation HospitalComment on above:Performed By: #### ZFAST, TSHX, MG, CP, CDP #### [facility] [address] [place] [address] [employer] House Supervisor: Elio Pate MD #### VD25, LIPR #### [address] [phone] [employer] Supervisor: Bryon Lux.Neutrophil (Seg)4.20 k/uLNormal2.1-6.5[facility] on above:Performed By: #### ZFAST, TSHX, MG, CP, CDP #### [facility] [address] [place], [place] [phone] [employer] Supervisor: Elio Pate MD #### VD25, LIPR #### [address] [id number] [employer] House Supervisor: Brady Lux PerformedYESNormalSouthview Medical Center on above:Performed By: #### ZFAST, TSHX, MG, CP, CDP #### [facility] [address] [place], [place] [phone] [employer] House Supervisor: Elio Pate MD #### VD25, LIPR #### [address] [id number] [employer] House Supervisor: Jose Manuel Corona MDBasophils/100 WBC (Bld)0 %Normal0-2MMorrow [facility] Hospital on above:Performed By: #### ZFAST, TSHX, MG, CP, CDP #### [facility] [address] [place], [place] [phone] [employer] Supervisor: Elio Pate MD #### VD25, LIPR #### [address] [id number] [employer] House Supervisor: Jose Manuel Corona MDEosinophils (Bld) [#/Vol]0.20 10*3/uLNormal 0.0-0.4[facility] on above:Performed By: #### ZFAST, TSHX, MG, CP, CDP #### [facility] [address] [place], [place] [phone] [employer] Supervisor: Elio Pate MD #### VD25, LIPR #### [address] [phone] [employer] House Supervisor: Jose Manuel Corona MDEosinophils/100 WBC (Bld)2 %Normal0-5[facility] CenterComment on above:Performed By: #### ZFAST, TSHX, MG, CP, CDP #### [facility] [address] [place] [phone] [employer] House Supervisor: Elio Pate MD #### VD25, LIPR #### [place] [phone] [employer] House Supervisor: Jose Manuel Corona MDErythrocyte distribution width (RBC) [Ratio]13.8 %Jecvng19.1-15.2MercFremont HospitalComment on above:Performed By: #### ZFAST, TSHX, MG, CP, CDP #### [facility] [address] [place] [phone] ( Feed House Supervisor: Elio Pate MD #### VD25, LIPR #### [place] [id number] [employer] House Supervisor: Jose Manuel Corona MDHematocrit (Bld) [Volume fraction]42.1 %Normal 41-53[facility] Medical CenterComment on above:Performed By: #### ZFAST, TSHX, MG, CP, CDP #### [facility] [address] [place] [phone] [employer] House Supervisor: Elio Pate MD #### VD25, LIPR #### [place] [phone] [employer] House Supervisor: Jose Manuel Corona MDHemoglobin (Bld) [Mass/Vol]14.3 g/dLNormal 13.5-17.5[facility] Medical CenterComment on above:Performed By: #### ZFAST, TSHX, MG, CP, CDP #### [facility] [address] [place] [address] Feed House Supervisor: Elio Pate MD #### VD25, LIPR #### [address] [phone] Feed House Supervisor: Jose Manuel Corona MDLymphocytes (Bld) [#/Vol]2.60 10*3/uLNormal 1.0-4.8[facility] CenterComasc[facility] on above:Performed By: #### ZFAST, TSHX, MG, CP, CDP #### [facility] [address] [place] [address] Feed House Supervisor: Elio Pate MD #### VD25, LIPR #### [address] [phone] Feed House Supervisor: Jose Manuel Corona MDLymphocytes/100 WBC (Bld)35 %Gcwerw91-83ZqdfdFairfield Medical CenterComascension st. jose[facility] hospital on above:Performed By: #### ZFAST, TSHX, MG, CP, CDP #### [facility] [address] [place] [address] Feed House Supervisor: Elio Pate MD #### VD25, LIPR #### [address] [phone] Feed House Supervisor: ORIANA LuxCH (RBC) [Entitic mass]31.0 iwMgyglo51-30EtvhfSouthview Medical Center on above:Performed By: #### ZFAST, TSHX, MG, CP, CDP #### [facility] [address] [place] [address] Feed House Supervisor: Elio Pate MD #### VD25, LIPR #### [address] [phone] Feed House Supervisor: ONUR LuxC (RBC) [Mass/Vol]33.9 g/kRAmdree59-56YczjuFairfield Medical CenterComascension st. jose[facility] hospital on above:Performed By: #### ZFAST, TSHX, MG, CP, CDP #### [facility] [address] [place], [place] [phone] Feed House Supervisor: Elio Pate MD #### VD25, LIPR #### [address] [phone] Feed House Supervisor: ORIANA LuxCV (RBC) [Entitic vol]91.5 kCRjlyhc41-520IvigdFairfield Medical CenterComascension st. [facility]ose[facility] on above:Performed By: #### ZFAST, TSHX, MG, CP, CDP #### [facility] [address] [place], [place] [phone] Feed House Supervisor: Elio Pate MD #### VD25, LIPR #### [address] [address] Feed House Supervisor: ORIANA Luxonocytes (Bld) [#/Vol]0.40 10*3/uLNormal0.0-1.0 [facility] on above:Performed By: #### ZFAST, TSHX, MG, CP, CDP #### [facility] [address] [place] [phone] Feed House Supervisor: Elio Pate MD #### VD25, LIPR #### [address] [phone] Feed House Supervisor: Jose Manuel Corona MDMonocytes/100 WBC (Bld)6 %Normal5-9[facility] on above:Performed By: #### ZFAST, TSHX, MG, CP, CDP #### [facility] [address] [place] [phone] Feed House Supervisor: Elio Pate MD #### VD25, LIPR #### [address] [phone] Feed House Supervisor: Raúl Luxophil (Seg)57 %Pdsibw37-77HjrvhTriHealth Good Samaritan Hospitalment on above:Performed By: #### ZFAST, TSHX, MG, CP, CDP #### [facility] [address] [place], [place] [phone] Feed House Supervisor: Elio Pate MD #### VD25, LIPR #### [address] [phone] Feed House Supervisor: Mal Lux (Bld) [#/Vol]274 10*3/hOTxaugb036-[address] [facility] on above:Performed By: #### ZFAST, TSHX, MG, CP, CDP #### [facility] [address] [place], [place] [phone] Feed House Supervisor: Elio Pate MD #### VD25, LIPR #### [address] [address] Feed House Supervisor: EL LuxBC (d) [#/Vol]4.60 10*6/uLNormal4.5-5.9[facility] [address] [facility] on above:Performed By: #### ZFAST, TSHX, MG, CP, CDP #### [facility] [address] [place], [place] [phone] Feed House Supervisor: Elio Pate MD #### VD25, LIPR #### [address] [address] Feed House Supervisor: SARAH LuxBC (Bld) [#/Vol]7.4 10*3/uLNormal3.5-11.0[facility] on above:Performed By: #### ZFAST, TSHX, MG, CP, CDP #### [facility] [address] [place], [place] [phone] Feed House Supervisor: Elio Pate MD #### VD25, LIPR #### [address] [phone] Feed House Supervisor: Bryon Lux.Imm.GranulocyteNOT REPORTEDNormal0.00-0.[address] [facility] on above:Performed By: #### ZFAST, TSHX, MG, CP, CDP #### [facility] [facility] [address] [phone] Feed House Supervisor: Elio Pate MD #### VD25, LIPR #### [address] [phone] Feed House Supervisor: Jose Manuel Corona MDImmature granulocytes (Bld) [#/Vol]NOT REPORTED Prqefv3MblycFairfield Medical CenterComment on above:Performed By: #### ZFAST, TSHX, MG, CP, CDP #### [facility] [address] [phone] Feed House Supervisor: Elio Pate MD #### VD25, LIPR #### [address] [phone] Feed House Supervisor: Jose Manuel Corona MDNRBC AutomatedNOT REPORTEDNormalFairfield Medical CenterComment on above:Performed By: #### ZFAST, TSHX, MG, CP, CDP #### [facility] [address] [phone] Feed House Supervisor: Elio Pate MD #### VD25, LIPR #### [address] [phone] Feed House Supervisor: Gilberto Luxlet mean volume (Bld) [Entitic vol]NOT REPORTEDNormal6.0-12.0Fairfield Medical CenterComment on above:Performed By: #### ZFAST, TSHX, MG, CP, CDP #### [facility] [address] [place], [place] [phone] Feed House Supervisor: Elio Pate MD #### VD25, LIPR #### [address] [address] Feed House Supervisor: BEATRIZ Luxlatelets (Bld) [#/Vol]NOT REPORTEDNormJoint Township District Memorial HospitalComment on above:Performed By: #### ZFAST, TSHX, MG, CP, CDP #### [facility] [address] [place] [address] Feed House Supervisor: Elio Pate MD #### VD25, LIPR #### [address] [phone] Feed House Supervisor: PATRICIA Lux morphology finding Nom (Bld)NOT REPORTED [facility] CenterComment on above:Performed By: #### ZFAST, TSHX, MG, CP, CDP #### [facility] [address] [place] [address] Feed House Supervisor: Elio Pate MD #### VD25, LIPR #### [address] [phone] Feed House Supervisor: Jose Manuel Corona MDOUR LAD[facility] MorphologyNOT REPORTEDNormJoint Township District Memorial HospitalComment on above:Performed By: #### ZFAST, TSHX, MG, CP, CDP #### [facility] [address] [phone] Feed House Supervisor: Elio Pate MD #### VD25, LIPR #### [address] [address] Feed House Supervisor: DARYA Luxgarfield memorial hospital Metabolic Profon 04-30-2020(cont.)Normal Fairfield Medical CenterComment on above:Result Comment: Average GFR for 70 or more years old: 75 mL/min/1.73sq m Chronic Kidney Disease: <60 mL/min/1.73sq m Kidney failure: <15 mL/min/1.73sq m eGFR calculated using average adult body mass. Additional eGFR calculator available at: http://www.Zentric.com/multiple_crcl_2012.htmPerformed By: #### ZFAST, TSHX, MG, CP, CDP #### [facility] [address] [phone] Feed House Supervisor: Elio Pate MD #### VD25, LIPR #### [address] [phone] Feed House Supervisor: Jose Manuel Corona MDAlbumin [Mass/Vol]4.4 g/dLNormal3.5-5.2MMorrow [facility] Hospital on above:Performed By: #### ZFAST, TSHX, MG, CP, CDP #### [facility] [address] [phone] Feed House Supervisor: Elio Pate MD #### EYAL25, LIPR #### [address] [phone] Feed House Supervisor: Shawn Lux Phos61 U/LFnkggf73-126KezztSouthview Medical Center on above:Performed By: #### ZFAST, TSHX, MG, CP, CDP #### [facility] [address] [place] [address] Feed House Supervisor: Elio Pate MD #### EYAL25, LIPR #### [address] [phone] Feed House Supervisor: Jose Manuel Corona MDALT [Catalytic activity/Vol]14 U/LNormal5-41 [facility] on above:Performed By: #### ZFAST, TSHX, MG, CP, CDP #### [facility] [address] [place], [place] [phone] Feed House Supervisor: Elio Pate MD #### VD25, LIPR #### [address] [phone] Feed House Supervisor: Rowdy Luxon gap [Moles/Vol]10 mmol/LNormal9-17Fairfield Medical CenterComment on above:Performed By: #### ZFAST, TSHX, MG, CP, CDP #### [facility] [address] [place], [place] [phone] Feed House Supervisor: Elio Pate MD #### VD25, LIPR #### [address] [phone] Feed House Supervisor: Jose Manuel Corona MDAST [Catalytic activity/Vol]17 U/LNormal<40Fairfield Medical CenterComment on above:Performed By: #### ZFAST, TSHX, MG, CP, CDP #### [facility] [address] [phone] ( Feed House Supervisor: Elio Pate MD #### VD25, LIPR #### [address] [phone] Feed House Supervisor: Jose Manuel Corona MDBilirubin Ql (U)0.53 mg/dLNormal0.30-1.20Fairfield Medical CenterComment on above:Performed By: #### ZFAST, TSHX, MG, CP, CDP #### [facility] [address] [phone] Feed House Supervisor: Elio Pate MD #### VD25, LIPR #### [address] [phone] Feed House Supervisor: Jose Manuel Corona MDBUN/CRE Skfyi55Cjgmbx9-85[facility] Comment on above:Performed By: #### ZFAST, TSHX, MG, CP, CDP #### [facility] [address] [phone] Feed House Supervisor: Elio Pate MD #### VD25, LIPR #### [address] [phone] Feed House Supervisor: DARYA Luxalcium [Mass/Vol]11.1 mg/dLHigh8.6-10.4[facility] [address]Com[facility] [address] on above:Performed By: #### ZFAST, TSHX, MG, CP, CDP #### [facility] [address] [phone] Feed House Supervisor: Elio Pate MD #### VD25, LIPR #### [address] [phone] Feed House Supervisor: DARYA Luxhloride [Moles/Vol]101 mmol/GXrbpko17-759WonfjFairfield Medical CenterComment on above:Performed By: #### ZFAST, TSHX, MG, CP, CDP #### [facility] [address] [phone] Feed House Supervisor: Elio Pate MD #### VD25, LIPR #### [address] [phone] Feed House Supervisor: Jose Manuel Corona MDCO2 [Moles/Vol]30 mmol/CLbqkdw93-59LijxpFairfield Medical CenterComascension st. jose[facility] hospital on above:Performed By: #### ZFAST, TSHX, MG, CP, CDP #### [facility] [address] [phone] Feed House Supervisor: Elio Pate MD #### VD25, LIPR #### [address] [phone] Feed House Supervisor: Jose Manuel Corona MDCreatinine [Mass/Vol]1.48 mg/dLHigh0.70-1.20 [facility] on above:Performed By: #### ZFAST, TSHX, MG, CP, CDP #### [facility] [address] [place] [address] Feed House Supervisor: Elio Pate MD #### VD25, LIPR #### [facility] [address] [place] [address] Feed House Supervisor: Jose Manuel Corona MDGFR, Amer55 mL/minLow>60[facility] on above:Performed By: #### ZFAST, TSHX, MG, CP, CDP #### [facility] [address] [place] [address] Feed House Supervisor: Elio Pate MD #### VD25, LIPR #### [address] [place] [address] Feed House Supervisor: Jose Manuel Corona MDGFR,non Amer46 mL/minLow>60Fairfield Medical CenterComment on above:Performed By: #### ZFAST, TSHX, MG, CP, CDP #### [facility] [address] [place] [address] Feed House Supervisor: Elio Pate MD #### VD25, LIPR #### [facility] [address] [place] [address] Feed House Supervisor: Jose Manuel Corona MDGlucose [Mass/Vol]89 mg/mARjsxwm83-28Yzz[address] [place], [place] [address] on above:Performed By: #### ZFAST, TSHX, MG, CP, CDP #### [facility] [address] [place] [address] Feed House Supervisor: Elio Pate MD #### VD25, LIPR #### [facility] [address] [place] [address] Feed House Supervisor: BEATRIZ Luxotassium [Moles/Vol]3.8 mmol/LNormal3.7-5.3 [facility] on above:Performed By: #### ZFAST, TSHX, MG, CP, CDP #### [facility] [address] [place] [address] Feed House Supervisor: Elio Pate MD #### VD25, LIPR #### [address] [address] Feed House Supervisor: BEATRIZ Luxrotein [Mass/Vol]7.4 g/dLNormal6.4-8.3[facility] Rehabilitation HospitalComment on above:Performed By: #### ZFAST, TSHX, MG, CP, CDP #### [facility] [address] [place] [address] Feed House Supervisor: Elio Pate MD #### VD25, LIPR #### [address] [address] Feed House Supervisor: Jose Manuel Corona MDSodium [Moles/Vol]141 mmol/LMmvxzv438-096FzkxvFairfield Medical CenterComment on above:Performed By: #### ZFAST, TSHX, MG, CP, CDP #### [facility] [address] [place] [address] Feed House Supervisor: Elio Pate MD #### VD25, LIPR #### [address] [address] Feed House Supervisor: Jose Manuel Corona MDUrea nitrogen [Mass/Vol]26 mg/dLHigh8-23Fairfield Medical CenterComment on above:Performed By: #### ZFAST, TSHX, MG, CP, CDP #### [facility] [address] [place] [address] Feed House Supervisor: Elio Pate MD #### VD25, LIPR #### [address] [address] Feed House Supervisor: Jose Manuel Corona MDAlbumin/Globulin [Mass ratio]NOT REPORTEDNormal 1.0-2.5Fairfield Medical CenterComment on above:Performed By: #### ZFAST, TSHX, MG, CP, CDP #### [facility] [address] [place], [place] [phone] Feed House Supervisor: Elio Pate MD #### VD25, LIPR #### [employer] [address] [place], [place] [phone] Feed House Supervisor: VIV Luxtaging:NOT REPORTEDNormJoint Township District Memorial Hospital Comment on above:Performed By: #### ZFAST, TSHX, MG, CP, CDP #### [facility] [address] [place], [place] [phone] Feed House Supervisor: Elio Pate MD #### VD25, LIPR #### [facility] [employer] [address] [place], [place] [phone] Feed House Supervisor: Jose Manuel Corona [facility]omprehensive Metabolic Panelon 04-30-2020 Albumin [Mass/Vol]4.4 g/dL3.5 - 5.2 g/dLSt. [facility]- [place], KYAlbumin/Globulin [Mass ratio]NOT REPORTEDOhio [facility] [place], KYALP [Catalytic activity/Vol]61 U/L40 - 129 U/LMerc Health- [place], KYALT [Catalytic activity/Vol]14 U/L5 - 41 U/[facility]- [place], KYAnion gap [Moles/Vol]10 mmol/L9 - 17 mmol/LMercy Health- [place], KYAST [Catalytic activity/Vol]17 U/L<40[facility]- [place], KYBilirubin Ql (U)0.53 mg/dL 0.3 - 1.2 mg/dLSt. [facility]- [place], KYBun/Cre Ayawc04[facility]- [place], KYCalcium [Mass/Vol]11.1 mg/dLHigh8.6 - 10.4 mg/dLSt. [facility]- [place], KYChloride [Moles/Vol] 101 mmol/L98 - 107 mmol/LMadena regional medical center [facility]- [place], KYCO2 [Moles/Vol]30 mmol/L20 - 31 mmol/LMdayton va medical centery Health- [place], KYCreatinine [Mass/Vol]1.48 mg/dLHigh0.7 - 1.2 mg/dL [facility]- [place], KYGFR Kygqgcul75 mL/minLow>60[facility], KYGFR Non- Zrquapne78 mL/minLow>60[facility], KYGFR/1.73 sq M predicted among non-blacks MDRD (S/P/Bld) [Vol rate/Area]NOT REPORTEDKettering Health [place], [place] GFR/1.73 sq M predicted among non-blacks MDRD (S/P/Bld) [Vol rate/Area][facility], KYComment on above:Average GFR for 70 or more years old: 75 mL/min/1.73sq m Chronic Kidney Disease: <60 mL/min/1.73sq m Kidney failure: <15 mL/min/1.73sq m eGFR calculated using average adult body mass. Additional eGFR calculator available at: http://www.Ombud/multiple_crcl_2012.htm Glucose [Mass/Vol]89 mg/dL70 - 99 mg/dLKettering Health [facility], FLInterpretation and review of laboratory resultsAbnormalK[facility]tering Health [facility], KYPotassium [Moles/Vol]3.8 mmol/L3.7 - 5.3 mmol/LMAultman Alliance Community Hospital, KYProtein [Mass/Vol]7.4 g/dL6.4 - 8.3 g/dLK[facility]tering Health [facility], KYSodium [Moles/Vol]141 mmol/L135 - 144 mmol/[facility], KYUrea nitrogen [Mass/Vol]26 mg/dLHigh8 - 23 mg/dLKettering Health [facility], FLLipid Panelon [id number] [Mass/Vol]152 mg/dL<200[facility], FLComment on above: Cholesterol Guidelines: <200 Desirable 200-240 Borderline >240 Undesirable Cholesterol in HDL [Mass/Vol]48 mg/dL>40[facility], FLComment on above: HDL Guidelines: <40 Undesirable 40-59 Borderline >59 Desirable Cholesterol in LDL [Mass/Vol]89 mg/dL0 - 130 mg/dLKettering Health [place], FLComment on above: LDL Guidelines: <100 Desirable 100-129 Near to/above Desirable 130-159 Borderline >159 Undesirable Direct (measured) LDL and calculated LDL are not interchangeable tests. Cholesterol in VLDL [Mass/Vol]NOT REPORTED1 - 30 mg/dLKettering Health [place], [place] Cholesterol.total/Cholesterol in HDL [Mass ratio]3.2 {ratio}<5[facility], FLTriglyceride [Mass/Vol]75 mg/dL<150[facility], KYComment on above: Triglyceride Guidelines: <150 Desirable 150-199 Borderline 200-499 High >499 Very high Based on AHA Guidelines for fasting triglyceride, March 2012. Lipid Profileon [id number] [Mass/Vol]152 mg/dLNormal<200[facility] on above:Result Comment: Cholesterol Guidelines: <200 Desirable 200-240 Borderline >240 UndesirablePerformed By: #### ZFAST, TSHX, MG, CP, CDP #### [facility] [address] [place] [address] Feed House Supervisor: Elio Pate MD #### VD25, LIPR #### [facility] [employer] [address] [place] [address] [phone] Feed House Supervisor: DARYA Luxholesterol in HDL [Mass/Vol]48 mg/dLNormal>40 [facility] on above:Result Comment: HDL Guidelines: <40 Undesirable 40-59 Borderline >59 DesirablePerformed By: #### ZFAST, TSHX, MG, CP, CDP #### [facility] [address] [phone] Feed House Supervisor: Elio Pate MD #### VD25, LIPR #### [facility] [employer] [address] [place] [address] [phone] Feed House Supervisor: DARYA Luxholesterol in LDL [Mass/Vol]89 mg/dLNormal0-130 [facility] on above:Result Comment: LDL Guidelines: <100 Desirable 100-129 Near to/above Desirable 130-159 Borderline >159 Undesirable Direct (measured) LDL and calculated LDL are not interchangeable tests.Performed By: #### ZFAST, TSHX, MG, CP, CDP #### [facility] [address] [place], [place] [phone] Feed House Supervisor: Elio Pate MD #### VD25, LIPR #### [facility] [employer] [address] [place] [address] Feed House Supervisor: Elizabeth Lux.total/Cholesterol in HDL [Mass ratio]3.2 {ratio}Normal<5Fairfield Medical CenterComment on above:Performed By: #### ZFAST, TSHX, MG, CP, CDP #### [facility] [address] [place], [place] [phone] Feed House Supervisor: Elio Pate MD #### VD25, LIPR #### [address] [address] Feed House Supervisor: Jose Manuel Corona MDTriglyceride [Mass/Vol]75 mg/dLNormal<150Fairfield Medical CenterComment on above:Result Comment: Triglyceride Guidelines: <150 Desirable 150-199 Borderline 200-499 High >499 Very high Based on AHA Guidelines for fasting triglyceride, March 2012.Performed By: #### ZFAST, TSHX, MG, CP, CDP #### [facility] [address] [place] [address] Feed House Supervisor: Elio Pate MD #### VD25, LIPR #### [facility] [employer] [address] [place] [address] Feed House Supervisor: DARYA Luxholesterol in VLDL [Mass/Vol]NOT REPORTEDNormal 1-30[facility]field Medical CenterComment on above:Performed By: #### ZFAST, TSHX, MG, CP, CDP #### [facility] [address] [place], [place] [phone] Feed House Supervisor: Elio Pate MD #### VD25, LIPR #### [address] [address] Feed House Supervisor: Renny Luxesiumon 26-79-9969Ybpoyloxp [Mass/Vol]1.7 mg/dLNormal1.6-2.6[facility] Rehabilitation HospitalComment on above:Performed By: #### ZFAST, TSHX, MG, CP, CDP #### [facility] [address] [place] [address] Feed House Supervisor: Elio Pate MD #### VD25, LIPR #### [facility] [employer] [address] [place] [address] [phone] Feed House Supervisor: Jose Manuel Corona MDMagnesium [Mass/Vol]1.7 mg/dL1.6 - 2.6 mg/dL [facility] KYOtheron [id number] granulocytes (Bld) [#/Vol]NOT REPORTED[place], KYPatient Fasting?on 30-69-0871Famommn Fasting?YES [place], KYPatient fasting?on 08-52-3242Ztgevva fasting?YESNormalFairfield Medical CenterComment on above:Performed By: #### ZFAST, TSHX, MG, CP, CDP #### [facility] [address] [place] [address] Feed House Supervisor: Elio Pate MD #### VD25, LIPR #### [facility] [employer] [address] [place] [address] [phone] Feed House Supervisor: ELLIS Lux w/reflex to FT4on 11-95-4774OJF Qn3.67 m[IU]/LNormal0.30-5.00Fairfield Medical CenterComment on above:Performed By: #### ZFAST, TSHX, MG, CP, CDP #### [facility] [address] [place] [address] Feed House Supervisor: Elio Pate MD #### VD25, LIPR #### [facility] [employer] [address] [place] [address] [phone] Feed House Supervisor: ELLIS Lux with Reflexon 28-85-0074SLD Qn3.67 m[IU]/L [place], KYVitamin D 25 Hydroxyon 80-40-7618Aqq D, 25-Ywqrlhv59.9 ng/mL 30 - 100 ng/mLOt[place], KYComascension [address] [facility] on above: Reference Range: Vitamin D status Range Deficiency <20 ng/mL Mild Deficiency 20-30 ng/mL Sufficiency 30-100 ng/mL Toxicity >100 ng/mL Vitamin D 25 OHon 99-77-7913Gughihj D 25 OH48.9 ng/gBSjseqb81.0-100.0[facility] CenterCom[facility] on above:Result Comment: Reference Range: Vitamin D status Range Deficiency <20 ng/mL Mild Deficiency 20-30 ng/mL Sufficiency 30-100 ng/mL Toxicity >100 ng/mLPerformed By: #### ZFAST, TSHX, MG, CP, CDP #### [facility] [address] [place] [address] Feed House Supervisor: Elio Pate MD #### VD25, LIPR #### [facility] [employer] [address] [place] [address] Feed House Supervisor: AZEB Lux CHEST (2 VW)on 22-53-2600TO CHEST (2 VW)EXAM: XR CHEST (2 VW) HISTORY: Reason for [...] by: Yung Akhtar Jr., MD 04/30/20 Final resultNormalFairfield Medical CenterGranulocytes/100 WBC (Bld)Dilated tortuous aorta. Small granuloma left lung of no significance.[facility] TASHEXAM: XR CHEST (2 VW) HISTORY: Reason for exam:->a fib COMPARISON: Chest 04/16/2019 TECHNIQUE: 2 views chest FINDINGS: The aorta is dilated and tortuous including prominent ascending aorta arch anddescending aorta. 5 mm calcified granuloma overlying the lateral left anterior 6th rib. Surgical clips in the right upper quadrant abdomen. No failure, pneumonia, or effusion.[facility], Damari Rudd Incoming Radiant Results From [employer]/Pacs - 04/30/2020 12:37 PM EST EXAM: XR [...] Small granuloma left lung of no significance. [facility], FLCBC Auto Differentialon [id number] (Bld) [#/Vol] 0.00 10*3/[facility], FLBasophils/100 WBC (Bld)1 %0 - 2 %[facility], FLDifferential TypeYESMAultman Alliance Community Hospital, FLEosinophils (Bld) [#/Vol]0.10 10*3/[facility], FLEosinophils/100 WBC (Bld)1 %0 - 5 %[place], KYErythrocyte distribution width (RBC) [Ratio]13.6 %12.1 - 15.2 %[place], KYHematocrit (Bld) [Volume fraction]43.1 %41 - 53 %[facility], [place] Hemoglobin (Bld) [Mass/Vol]14.5 g/dL13.5 - 17.5 g/dLKettering Health [place], [place] Lymphocytes (Bld) [#/Vol]2.60 10*3/[facility], FLLymphocytes/100 WBC (Bld)34 %13 - 44 %[facility], FLMCH (RBC) [Entitic mass]31.3 pg26 - 34 pg [facility], FLMCHC (RBC) [Mass/Vol]33.7 g/dL31 - 37 g/dLMercy Health- [place], KYMCV (RBC) [Entitic vol]92.8 fL80 - 100 fLUniversity Hospitals Tripoint [facility] Health- [place], KYMonocytes (Bld) [#/Vol]0.50 10*3/uLUniversity Hospitals Tri[facility]- [place], KYMonocytes/100 WBC (Bld)7 %5 - 9 %[facility]- [place], KYPlatelet mean volume (Bld) [Entitic vol]NOT REPORTED6 - 12 fLUniversity Hospitals Tripoint Medical Center Health- [place], KYPlatelets (Bld) [#/Vol]265 10*3/uLUniversity Hospitals Tripoint [facility]- [place], KYPlatelets (Bld) [#/Vol]NOT REPORTEDSt. [facility]- [place], KYRBC (Bld) [#/Vol]4.64 10*6/uL4.5 - 5.9 m/uLUniversity Hospitals Tripoint [facility] Health- [place], KYRBC morphology finding Nom (Bld)NOT REPORTEDSt. [facility]- [place], KYSegmented neutrophils/100 WBC (Bld)57 %39 - 75 %[facility]- [place], KYSegs Absolute4.40[facility]- [place], KYWBC (Bld) [#/Vol]NOT REPORTEDper [address] [facility] [facility]- [place], KYWBC (Bld) [#/Vol]7.7 10*3/uLUniversity Hospitals Tripoint [facility]- [place], KYWBC MorphologyNOT REPORTEDUniversity Hospitals [facility]- [place], KYComprehensive Metabolic Panelon [id number] [Mass/Vol]4.6 g/dL3.5 - 5.2 g/dLSt. [facility]- [place], [place] Albumin/Globulin [Mass ratio]NOT REPORTEDSt. [facility]- [place], KYALP [Catalytic activity/Vol]75 U/L40 - 129 U/LMadena regional medical center Health- [place], KYALT [Catalytic activity/Vol] 12 U/L5 - 41 U/LMadena regional medical center Health- [place], KYAnion gap [Moles/Vol]14 mmol/L9 - 17 mmol/L [facility]- [place], KYAST [Catalytic activity/Vol]16 U/L<40[facility]- [place], [place] Bilirubin Ql (U)0.83 mg/dL0.3 - 1.2 mg/dLUniversity Hospitals [facility]- [place], KYBun/Cre Ratio19 [facility]- [place], KYCalcium [Mass/Vol]10.5 mg/dLHigh8.6 - 10.4 mg/dLSt. [facility]- [place], KYChloride [Moles/Vol]100 mmol/L98 - 107 mmol/LMDiley Ridge Medical Center- [place], [place] CO2 [Moles/Vol]24 mmol/L20 - 31 mmol/LMadena regional medical center Health- [place], KYCreatinine [Mass/Vol] 1.54 mg/dLHigh0.7 - 1.2 mg/dLOhio State [facility] Hospital [place], KYGFR Dyuemuks93 mL/min Low>60[facility]- [place], KYGFR Non- Fkisprqr39 mL/minLow>60[facility] [place], KYGFR/1.73 sq M predicted among non-blacks MDRD (S/P/Bld) [Vol rate/Area] [facility], FLComment on above:Average GFR for 70 or more years old: 75 mL/min/1.73sq m Chronic Kidney Disease: <60 mL/min/1.73sq m Kidney failure: <15 mL/min/1.73sq m eGFR calculated using average adult body mass. Additional eGFR calculator available at: http://www.Ombud/multiple_crcl_2012.htm GFR/1.73 sq M predicted among non-blacks MDRD (S/P/Bld) [Vol rate/Area]NOT REPORTEDKettering Health [facility], KYGlucose [Mass/Vol]98 mg/dL70 - 99 mg/dLKettering Health [facility], KYPotassium [Moles/Vol]4.0 mmol/L3.7 - 5.3 mmol/LMSamaritan North Health Center [place], [place] Protein [Mass/Vol]8.1 g/dL6.4 - 8.3 g/dLKettering Health [facility], KYSodium [Moles/Vol] 138 mmol/L135 - 144 mmol/LMSamaritan North Health Center [place], KYUrea nitrogen [Mass/Vol]30 mg/dL High8 - 23 mg/dLKettering Health [facility], KYLipid Panelon [id number] [Mass/Vol]208 mg/dLHigh<200[facility], KYComment on above: Cholesterol Guidelines: <200 Desirable 200-240 Borderline >240 Undesirable Cholesterol in HDL [Mass/Vol]59 mg/dL>40[facility]- [place], KYComment on above: HDL Guidelines: <40 Undesirable 40-59 Borderline >59 Desirable Cholesterol in LDL [Mass/Vol]130 mg/dL0 - 130 mg/dLOtter, KYComascension [address]. [facility]ose[facility] on above: LDL Guidelines: <100 Desirable 100-129 Near to/above Desirable 130-159 Borderline >159 Undesirable Direct (measured) LDL and calculated LDL are not interchangeable tests. Cholesterol in VLDL [Mass/Vol]NOT REPORTED1 - 30 mg/dLOtter, [place] Cholesterol.total/Cholesterol in HDL [Mass ratio]3.5 {ratio}<5[facility] FLTriglyceride [Mass/Vol]94 mg/dL<150[place], [address]Com[address] [facility] on above: Triglyceride Guidelines: <150 Desirable 150-199 Borderline 200-499 High >499 Very high Based on AHA Guidelines for fasting triglyceride, March 2012. Magnesiumon [id number] [Mass/Vol]1.8 mg/dL1.6 - 2.6 mg/dLKettering Health Hamilton FLOtheron 73-85-8638Ectamykgtxjdvy and review of laboratory resultsAbnormal [place], KYImwvture granulocytes (Bld) [#/Vol]NOT REPORTEDOtter, KYPatient Fasting?on 67-67-6393Zonhzhe Fasting?yes[facility] with Reflexon 76-66-8866WGQ Qn2.24 m[IU]/LMRochester, KYVitamin D 25 Hydroxyon 21-31-4460Eeb D, 25-Ohalquz72.3 ng/mL30 - 100 ng/mLOt[place], KYCombarbra on above: Reference Range: Vitamin D status Range Deficiency <20 ng/mL Mild Deficiency 20-30 ng/mL Sufficiency 30-100 ng/mL Toxicity >100 ng/mL XR CHEST STANDARD (2 VW)on 88-41-7795Qenlojxuzarj/100 WBC (Bld)Dilated tortuous aorta. Small granuloma left lung of no significance.[place], KYEXAM: XR CHEST (2 VW) HISTORY: I10 78-year-old male essential hypertension. COMPARISON: None. TECHNIQUE: 2 views chest. FINDINGS: The aorta is dilated and tortuous including prominent ascending aortaarch and descending aorta. 5 mm calcified granuloma overlying the lateral left anterior 6th rib. Surgical clips in the right upper quadrant abdomen. No failure, pneumonia, or effusion.[facility] Incoming Radiant Results From [employer] - 04/16/2019 2:19 PM EST EXAM: XR CHEST (2VW) HISTORY: I10 78-year-old male essential hypertension. COMPARISON: None. TECHNIQUE: 2 views chest. FINDINGS: The aorta is dilated and tortuous including prominent ascending aorta arch and descending aorta. 5 mm calcified granuloma overlying the lateral left anterior 6th rib. Surgical clips in the right upper quadrant abdomen. No failure, pneumonia, or effusion. IMPRESSION: Dilated tortuous aorta. Small granuloma left lung of no significance. [facility] Metabolic Panelon 57-76-7406Cqsve gap [Moles/Vol]18 mmol/L10 - 20 mmol/LOhioHealthCalcium [Mass/Vol]10.2 mg/dL8.4 - 10.2 mg/dL OhioHealthChloride [Moles/Vol]101 mmol/L98 - 108 mmol/LOhioHealthCreatinine [Mass/Vol]1.15 mg/dL0.8 - 1.3 mg/dLOhioHealthGFR/1.73 sq M predicted among non- blacks MDRD (S/P/Bld) [Vol rate/Area]The eGFR should be used for monitoring renal function only and not for medication dosing.OhioHealthGFR/1.73 sq M.predicted CKD-EPI (S/P/Bld) [Vol rate/Area]60>=60 mL/min/1.73 r5ApumZcjoyg Glucose [Mass/Vol]60 mg/dLLow65 - 99 mg/dLOhioHealthHCO3 [Moles/Vol]24 mmol/L21 - 32 mmol/LOhioHealthInterpretation and review of laboratory resultsAbnormal OhioHealthPotassium [Moles/Vol]4.1 mmol/L3.5 - 5.1 mmol/LOhioHealthSodium [Moles/Vol]139 mmol/L135 - 145 mmol/LOhioHealthUrea nitrogen [Mass/Vol]23 mg/dL8 - 25 mg/dLOhioHealthUrea nitrogen/Creatinine [Mass ratio]20.0 mg/mgOhioHealth CBC WITH AUTO DIFFERENTIALon 30-97-8742Aavhfdrfq (Bld) [#/Vol]0.04 10*3/uL OhioHealthBasophils/100 WBC (Bld)0.5 %OhioHealthEosinophils (Bld) [#/Vol]0.06 10*3/uLOhioHealthEosinophils/100 WBC (Bld)0.8 %OhioHealthErythrocyte distribution width (RBC) [Entitic vol]12.9 %11.6 - 14.8 %OhioHealthHematocrit (Bld) [Volume fraction]39.7 %Low41 - 53 %OhioHealthHemoglobin (Bld) [Mass/Vol] 13.3 g/dLLow13.5 - 17.5 g/dLOhioHealthImmature granulocytes (Bld) [#/Vol]0.03 10*3/uLOhioHealthImmature granulocytes/100 WBC (Bld)0.40 %OhioHealthComment on above:The IG parameter is the percentage of metamyelocytes, myelocytes, and promyelocytes.Interpretation and review of laboratory resultsAbnormalOhioHealth Lymphocytes (Bld) [#/Vol]2.67 10*3/uLOhioHealthLymphocytes/100 WBC (Bld)35.8 % OhioHealthMCH (RBC) [Entitic mass]31.1 pg26 - 34 pgOhioHealthMCHC (RBC) [Mass/Vol]33.5 g/dL31 - 37 g/dLOhioHealthMCV (RBC) [Entitic vol]93.0 fL80 - 100 fLOhioHealthMonocytes (Bld) [#/Vol]0.51 10*3/uLOhioHealthMonocytes/100 WBC (Bld) 6.8 %OhioHealthNeutrophils (Bld) [#/Vol]4.15 10*3/uLOhioHealthNeutrophils/100 WBC (Bld)55.7 %OhioHealthNucleated RBC (Bld) [#/Vol]0.00 10*3/uLOhioHealth Nucleated RBC/100 WBC (Bld) [Ratio]0.0 %OhioHealthPlatelet mean volume (Bld) [Entitic vol]9.5 fL9 - 15.5 fLOhioHealthPlatelets (Bld) [#/Vol]222 10*3/uL OhioHealthRBC (Bld) [#/Vol]4.27 10*6/[facility] CenterW (Bld) [#/Vol]7.46 10*3/[facility] HospitalECHOCARDIOGRAM TRANSESOPHAGEALon 45-39-8315Ivpludhnznctqkj Echocardiogram Patient: [facility] Rec#: [id number] (Age): 1940(77y) Height: 172.7(cm)/67(in Study Date: 04/06/2018 Weight: 72.6(kg)/160(lb Room#: BSA: 1.86 Type: OutpatientLoc: RAYMOND Procedure Room Sex: M Reading: Joey Fischer MD MSc Referring: ALMITA Performing: Joey Fischer MD MSc Nurse: JAY DU RN Secondary NurseFischLorene marion CCRN History: Atrial fibrillation. Cancer. ProstateCVA, history. Hyperlipidemia Hypertension. Other. CardioversionRenal failure. Diagnosis: ICD-10-PCS Unspecified atrial fibrillation (I48.91) Atrial Fibrillation (427.31) CPT Code(s): DOP ECHO COLOR JEOVANNY MIKA MAPG (20860) DOP ECHO COMPL (85857) RAYMOND R-T IMG 2D W/PRB IMG ACQUISJ IR (96450) Summary: Patient identity verified and ID band [...] assessed prior to sedation. Medication Reconciliation completed. 9mlSaline agitated with 1ml air, injected IV push per Lab Protocol. Conclusions: There is normal left ventricular systolic function. S/P Watchman LAAC implantation with appropriate position, no adjacentthrombus or para-device leak noted. There is no pericardial effusion. Compared to prior report from02/27, similar findings. Findings Reason For Study: Atrial [...] Mild aortic leaflet calcification is visualized. Aortic valveappears sclerotic. There is no hemodynamically significant stenosis. Mitral Valve: The mitral valveappears normal in structure and function. There is mild mitral regurgitation. Tricuspid Valve: The tricuspid valve appears normal in structure and function. There is no tricuspid stenosis. There is atrace tricuspid regurgitation. Pericardium: There is no pericardial effusion. Aorta: The aortic root is normal in diameter. There is evidence of mild atheromatous disease in the ascending aorta. There is evidence of grade 2 (extensive intimal thickening) atheromatous disease in the transverse aorta. HR 47 BP 143/85 Electronically Signed at 04/06/2018 12:24:07 by: Joey Fischer MD MScInvalid Interpretation Nii Nicole In Heartlab Xper Echopacs - 04/06/2018 12:25 PM EDT Transesophageal Echocardiogram Patient: [facility] Rec#: [id number] (Age): 1940(77y) Height: 172.7(cm)/67(in Study Date: 04/06/2018 Weight: 72.6(kg)/160(lb Room#: BSA: 1.86 Type: Outpatient Loc: RAYMOND Procedure Room Sex: M Reading: ORIANA ReyesSc Referring: ALMITA Performing: Joey Fischer MD MSc Nurse: JAY DU RN Secondary NurseFischerLorene CCRN History: Atrial fibrillation. Cancer. ProstateCVA, history. Hyperlipidemia Hypertension. Other. CardioversionRenal failure. Diagnosis: ICD-10-PCS Unspecified atrial fibrillation (I48.91) Atrial Fibrillation (427.31) CPT Code(s): DOP ECHO COLOR JEOVANNY MIKA MAPG (62074) DOP ECHO COMPL (98964) RAYMOND R-T IMG 2D W/PRB IMG ACQUISJ IR (91910) Summary: Patient identity verified and ID band [...] pericardial effusion. Compared to prior report from 9/18, similar findings. FindingsReason For Study: Atrial fibrillation. RAYMOND Procedures: The procedure and risk were explained to thepatient who consented to the study. Lidocaine Viscous [...] Tricuspid Valve: The tricuspid valve appears normal instructure and function. There is no tricuspid stenosis. [...] at 04/06/2018 12:24:07 by: Joey Fischer MD MScInvalid Interpretation CodeThe [facility]ty Hospital [facility] Metabolic Panelon 96-92-7157Itbni gap 3 molar conc16 mmol/LInvalid Interpretation Code10 - 20 mmol/LRZANESVILLE CITY [facility] LABCalcium mass conc9.2 mg/dLInvalid Interpretation Code8.4 - 10.2 mg/dLRILAKEHEALTH TRIPOINT [facility] LABChloride molar ouxb516 mmol/LInvalid Interpretation Code98 - 108 mmol/LRFILLMORE COMMUNITY MEDICAL CENTERIDE [facility] LABCreatinine mass conc1.26 mg/dLInvalid Interpretation Code 0.8 - 1.3 mg/dLCLEVELAND CLINIC [facility] LABGFR/1.73 sq M predicted among non-blacks MDRD vol rate/area (S/P/Bld)The eGFR should be used for monitoring renal function only and not for medication dosing.Invalid Interpretation Code [facility] LABGFR/1.73 sq M.predicted CKD-EPI vol rate/area (S/P/Bld)54Low>=60 mL/min/1.73 e8CXKYPUEORCLEVELAND CLINIC LUTHERAN [facility] LABGlucose mass conc85 mg/dLInvalid Interpretation Code65 - 99 mg/dLCLEVELAND CLINIC LUTHERAN [facility] LABHCO3 molar conc24 mmol/LInvalid Interpretation Code21 - 32 mmol/[facility] LABInterpretation and review of laboratory resultsAbnormal Invalid Interpretation [facility] LABPotassium molar conc 4.1 mmol/LInvalid Interpretation Code3.5 - 5.1 mmol/[facility] LABSodium molar wznx531 mmol/LInvalid Interpretation Ybeh865 - 145 mmol/[facility] LABUrea nitrogen mass conc22 mg/dLInvalid Interpretation Code8 - 25 mg/dLCLEVELAND CLINIC LUTHER[facility] LABUrea nitrogen/Creatinine mass ratio17.5 mg/mgInvalid Interpretation CodeCLEVELAND CLINIC LUTHERAN [facility] LABCBCon 46-50-9873Rzmcyzahzlt distribution width Auto Entitic volume (RBC)12.5 %Invalid Interpretation Code11.6 - 14.8 %[facility] LABHematocrit Auto Volume Fraction (Bld)40.4 %Low41 - 53 % [facility] LABHemoglobin mass conc (Bld)13.6 g/dLInvalid Interpretation Code13.5 - 17.5 g/dLCLEVELAND CLINIC LUTHERAN [facility] LAB Interpretation and review of laboratory resultsAbnormalInvalid Interpretation [facility] LABH Auto Entitic mass (RBC)31.5 pgInvalid Interpretation Code26 - 34 [facility] LABMCHC Auto mass conc (RBC)33.7 g/dLInvalid Interpretation Code31 - 37 g/dLCLEVELAND CLINIC LUTHER[facility] LABMCV Auto Entitic volume (RBC)93.5 fLInvalid Interpretation Code80 - 100 fLCLEVELAND CLINIC LUTHERAN [facility]ITAL LABNucleated RBC #/vol (Bld)0.00 10*3/uL Invalid Interpretation [facility] LABNucleated RBC/100 WBC Ratio (Bld)0.0 %Invalid Interpretation [facility] LAB Platelet mean volume Auto Entitic volume (Bld)9.5 fLInvalid Interpretation Code9 - 15.5 fLCLEVELAND CLINIC LUTHERAN HOS[facility]ITAL LABPlatelets Auto #/vol (Bld)193 10*3/uL Invalid Interpretation [facility] LABRBC Auto #/vol (Bld) 4.32 10*6/uLLowRILAKEHEALTH TRIPOINT MED[facility]ENTER LABWBC Auto #/vol (Bld)6.59 10*3/uL Invalid Interpretation [facility] LABCBC Auto Differential on 97-78-2750Mbhvmnaxw Auto #/vol (Bld)0.04 10*3/uLInvalid Interpretation Code [facility] LABBasophils/100 WBC Auto (Bld)0.5 %Invalid Interpretation [facility] LABEosinophils Auto #/vol (Bld) 0.13 10*3/uLInvalid Interpretation [facility] LAB Eosinophils/100 WBC Auto (Bld)1.8 %Invalid Interpretation [facility] LABErythrocyte distribution width Auto Entitic volume (RBC) 12.9 %Invalid Interpretation Code11.6 - 14.8 %[facility] LAB Hematocrit Auto Volume Fraction (Bld)41.4 %Invalid Interpretation Code41 - 53 % [facility] LABHemoglobin mass conc (Bld)14.5 g/dLInvalid Interpretation Code13.5 - 17.5 g/dLCLEVELAND CLINIC LUTHER[facility] LABImmature granulocytes #/vol (Bld)0.02 10*3/uLInvalid Interpretation [facility] LABImmature granulocytes/100 WBC (Bld)0.30 %Invalid Interpretation [facility] LABComment on above:The IG parameter is the percentage of metamyelocytes, myelocytes, and promyelocytes. Interpretation and review of laboratory resultsAbnormalInvalid Interpretation [facility] LABLymphocytes Auto #/vol (Bld)2.56 10*3/uL Invalid Interpretation [facility] LABLymphocytes/100 WBC Auto (Bld)35.2 %Invalid Interpretation [facility] LABMCH Auto Entitic mass (RBC)32.4 pgInvalid Interpretation Code26 - 34 pgRIVERSIDE [facility]UZE [facility] LABMCHC Auto mass conc (RBC)35.0 g/dLInvalid Interpretation Code31 - 37 g/dLCLEVELAND CLINIC LUTHER[facility] LABMCV Auto Entitic volume (RBC) 92.6 fLInvalid Interpretation Code80 - 100 [facility] LAB Monocytes Auto #/vol (Bld)0.54 10*3/uLInvalid Interpretation [facility] LABMonocytes/100 WBC Auto (Bld)7.4 %Invalid Interpretation [facility] LABNeutrophils Auto #/vol (Bld)3.99 10*3/uL Invalid Interpretation [facility] LABNeutrophils/100 WBC Auto (Bld)54.8 %Invalid Interpretation [facility] LAB Nucleated RBC #/vol (Bld)0.00 10*3/uLInvalid Interpretation [facility] LABNucleated RBC/100 WBC Ratio (Bld)0.0 %Invalid Interpretation [facility] LABPlatelet mean volume Auto Entitic volume (Bld)9.4 fLInvalid Interpretation Code9 - 15.5 [facility] LABPlatelets Auto #/vol (Bld)218 10*3/uLInvalid Interpretation [facility] LABRBC Auto #/vol (Bld)4.47 10*6/uLLowCLEVELAND CLINIC [facility] LABWBC Auto #/vol (Bld)7.28 10*3/uL Invalid Interpretation [facility] LABIf not done in the last 30 daysInvalid Interpretation [facility] LAB Echocardiogram intraop RAYMOND guidanceon 06-95-2788Nklgrpzqjgcrjim Echocardiogram Patient: [facility] Rec#: [id number] (Age): 1940(77y) Height: 172.7(cm)/67(in Study Date: 02/22/2018 Weight: 71.2(kg)/157(lb Room#: hybrid BSA: 1.84 Type: Loc: Operating Room Sex: M Reading: Telma Mcarthur DO, ASAF Referring: Boy Austin MD Referring: CASPER BUSTOS MD Performing: Telma Mcarthur DO, FAC History: Atrial fibrillation. Diagnosis: ICD-10-PCS Unspecified atrial fibrillation (I48.91) Atrial Fibrillation (427.31) CPT Code(s): DOP ECHO COLOR JEOVANNY MIKA MAPG (89342) DOP ECHO COMPL (34088) RAYMOND R-T IMG 2D W/PRB IMG ACQUISJ IR (05442) Conclusions: 1. A RAYMOND was performed to guide a Watchman device implant. 2. The maximum SANDY orifice diameter was 14 mm. Maximumdepth was 24 mm. 3. The Watchman device [...] diameter. Electronically Signed at 02/22/2018 13:11:43 by: Telma Mcarthur DO, FACC, FASE FSCCTInabrahamid Interpretation Code Nii Lepe In Heart[facility] Xper Echopacs - 02/22/2018 1:14 PM EDT Transesophageal Echocardiogram ___ Patient: NASH Zhu Rec#: [id number] (Age): 1940(77y) Height: 172.7(cm)/67(in Study Date: 02/22/2018 Weight: 71.2(kg)/157(lb Room#: [facility] BSA: 1.84 Type: Loc: Operating Room Sex: M Reading: Telma Mcarthur DO, FAC Referring: Boy Austin MD Referring: CASPER BUSTOS MD Performing: Telma Mcarthur DO, FAC History: Atrial fibrillation. Diagnosis: ICD-10-PCS Unspecified atrial fibrillation (I48.91) Atrial Fibrillation (427.31) CPT Code(s): DOP ECHO COLOR JEOVANNY MIKA MAPG (27098) DOP ECHO COMPL (43027) RAYMOND R-T IMG 2D W/PRB IMG ACQUISJ IR (04412) Conclusions: 1. A RAYMOND was performed to [...] velocity is severely reduced. Left atrial appendage peakemptying velocity 19 cm/sec. Right Ventricle: The right ventricular chamber size and systolic functi on are within normal limits. Right Atrium: The [...] diameter. Electronically Signed at 02/22/2018 13:11:43 by: Telma Mcarthur, , FACKatarzyna, MIKHAIL, FSCCTInvalid Interpretation Code [facility] RADEchocardiogram limitedon 02-05-5263Vhnqxwssv, Rad In Heartlab Xper Echopacs - 02/22/2018 4:19 PM EDT Transthoracic Echocardiogram Patient: [facility] Rec#: [id number] (Age): 1940(77y) Height: 172.72(cm)/67(i Study Date: 02/22/2018 Weight: 72.58(kg)/160(l Room#: 3355 BSA: [id number] Type: Inpatient Loc: CIL Sex: M Reading: Delicia Agudelo MD, PhD, Referring: ROQUEALEX [employer] Investigator: Kelvin Putnam RDCS, RV History: Arrhythmia. Atrial fibrillation. Cancer. CVA, history. Hyperlipidemia Hypertension. S/P closure device. 21mm WatchmanTobacco abuse. Diagnosis: ICD-10-PCS Pericardial effusion (noninflammatory) (I31.3) Pericardial effusion (423.9) CPT Code(s): DOP ECHO COLOR JEOVANNY MIKA MAPG (41568) TTE R-T IMG 2D +-M-MODE REC F-UP/LMTD (89716) Study Quality The study quality is fair. Summary: Patient identity verified and ID band on (pauseand confirm). Current HP present on patient chart. Procedure explained and patient verified understa nding. Consent obtained for procedure. Limited views were [...] dimension (AP) 2D 4.5 cm none LA dimension(2D) index 2.42 cm/m2 none Volumes/Mass Name Value Normal Range LV EDV SP 4CH (MOD) 111 ml none LV ESV SP 4CH (MOD) 38 ml none LV EDV SP 2CH (MOD) 92.6 ml none LV ESV SP 2CH (MOD) 30.8 ml none LV EDVBP 101 ml none LV ESV BP 34.6 ml none LV EDV BP index 54.33 ml/m2 none LV ESV BP index 18.61 ml/m2 none LV mass (2D) 177.23 g none LV mass (2D) index 95.33 g/m2 none Electronically Signed at 02/22/2018 16:16:56 by: Delicia Agudelo MD, PhD, RVT Invalid Interpretation CodeEMC RADTransthoracic Echocardiogram Patient: [facility] Rec#: [id number] (Age): 1940(77y) Height: 172.72(cm)/67(i Study Date: 02/22/2018 Weight: 72.58(kg)/160(l Room#: 3355 BSA: [id number] Type: Inpatient Loc: CIL Sex: M Reading: Delicia Agudelo MD, PhD, Referring: ALMITA [employer] Investigator: Kelvin Putnam [facility], History: Arrhythmia. Atrial fibrillation. Cancer. CVA, history. Hyperlipidemia Hypertension. S/P closure device. 21mm WatchmanTobacco abuse. Diagnosis: ICD-10-PCS Pericardial effusion (noninflammatory) (I31.3) Pericardial effusion (423.9) CPT Code(s): DOP ECHO COLOR JEOVANNY MIKA MAPG (18792) TTE R-T IMG 2D +-M-MODE REC F-UP/LMTD (24950) Study Quality The study quality is fair. [...] none LV mass (2D) index 95.33 g/m2 noneElectronically Signed at 02/22/2018 16:16:56 by: Delicia Agudelo MD, PhD, RVTInvalid Interpretation CodeEMC RADMetabolic Panelon 63-45-5365Gtlblua mass concRed Blood CellsInvalid Interpretation CodeRMH TRANSFUSION SERVICESProtein mass jkpyV0253L01Tcdiuln Interpretation CodeRMH TRANSFUSION SERVICESOtheron 76-26-6157Eaguv TypePositiveInvalid Interpretation CodeRMH TRANSFUSION SERVICESBlood Type Hioc7215Jdgfbvg Interpretation CodeRMH TRANSFUSION SERVICESCross MatchCompatibleInvalid Interpretation CodeRMH TRANSFUSION SERVICESStatus InfoReadyInvalid Interpretation CodeRMH TRANSFUSION SERVICESPOC INRon 93-63-6115DHY Coag RelTime (Bld)1.0 {INR}Invalid Interpretation CodeRMH POCT LABInterpretation and review of laboratory results NormalInvalid Interpretation CodeRM POCT LABPrepare RBC: 2 Unitson 02-22-2018 Unit [id number] Interpretation CodeRM TRANSFUSION SERVICESUnit [id number] Interpretation CodeRMH TRANSFUSION SERVICESProgress Noteon 55-53-9521CCY IP Note OR TranscriptionNormalKing'S Daughters Medical Center OhioProgress Noteon 35-84-0215HUP IP Note OR TranscriptionNormCleveland Clinic Avon HospitalHIM IP Note OR TranscriptionNoThe Surgical Hospital at SouthwoodsCT HEAD WO CONTRASTon 00-41-8173OI HEAD WO CONTRASTEXAMINATION:CT OF THE HEAD WITHOUT CONTRAST 01/25/2018 11:03 amTECHNIQUE:CT of the head was performed without the administration of intravenouscontrast. Dose modulation, iterative reconstruction, and/or weight basedadjustment of the mA/kV was utilized to reduce the radiation dose to as lowas reasonably achievable.COMPARISON:Brain CT dated 07/28/2016.HISTORY:ORDERING SYSTEM PROVIDED HISTORY: Subdural hematoma (HCC)TECHNOLOGIST PROVIDED HISTORY:Reason for exam:- >sd hematomaOrdering Physician Provided Reason for Exam: pre op evalAcuity: UnknownType of Exam: UnknownFINDINGS:BRAIN/VENTRICLES: Nosubdural hemorrhage on current exam. There is no [...] the visualized skull or softtissues. Multiple bilateral rdyer holes.IMPRESSION: No acute intracranial abnormality. No subdural hematoma.Interpreted by:VIV Mackayigned by:Kaiele Cano MD01/25/inal resultNormalSelect Medical Specialty Hospital - CincinnatiProgrmethodist hospitals Noteon 31-98-4500SKY IP Note OR TranscriptionNormCleveland Clinic Avon HospitalProgress Noteon 23-45-4407BUP IP Note OR Distribution Associate NormalKing'S Daughters Medical Center OhioHIM IP Note OR TranscriptionNormalKing'S Daughters Medical Center [place] Vital Signs Date TimeVital SignValuePerforming SwqyhoefxElbfcvja07-76-7709 11:06-0400Body izysiaufydj24.9 [degF]Jewel Vail MD Work Phone: [phone]-[facility]05-17-2025 11:06-0400Diastolic blood dhyompjd65 mm[Hg]Jewel Vail MD Work Phone: [phone]-[facility]05-17-2025 11:06-0400Systolic blood tufhonoj562 mm[Hg]Jewel Vail MD Work Phone: [phone]-[facility]05-17-2025 03:30-0400Heart rate 67 /Silvia Vail MD Work Phone: [phone]-[facility]05-17-2025 03:30-0400 Respiratory rate16 /Silvia Vail MD Work Phone: [phone]-[facility]05-17-2025 03:30-0752NvX2% (BldA) [Mass fraction]96 %Jewel Vail MD Work Phone: [phone]-[facility]05-14-2025 08:02-0400Body xuvvgl294.2 cmJewel Vail MD Work Phone: [phone]-[facility]05-14-2025 08:02-0400Body mass index (BMI) [Ratio]29.56 kg/p9MiufhuJewel Vail MD Work Phone: [phone]-[facility]05-14-2025 08:02-0400Body iohcrg64.6 kgJewel Vail MD Work Phone: [phone]-[facility] CenterC[facility]04-02-2025 13:57-0400Body efqmmm257.7 Fito Carr MD Work Phone: [facility] HospitalOmkarepron19-52-2706 13:57-0400Body mass index (BMI) [Ratio]23.11 kg/t0TabteeCedric Carr MD Work Phone: [phone])[facility]-3709[facility] HospitalSxrbmzxybe97-93-9337 13:57-0400Body ikzhqw46.95 kgCedric Carr MD Work Phone: [phone] [place], [place] 8165612-09-2024 11:26-0500Body nnbhsa636.7 cmEpat Carr MD Work Phone: [phone] [place], [place] 8165612-09-2024 11:26-0500Body mass index (BMI) [Ratio]23.11 kg/v9ImregoCedric Carr MD Work Phone: [phone] [place], [place] 8165612-09-2024 11:26-0500Body plyjel63.95 kgCedric Carr MD Work Phone: [phone] [place], [place] 8165612-09-2024 11:26-0500Diastolic blood edhtynkd10 mm[Hg]Cedric Carr MD Work Phone: [phone] [place], [place] 8165612-09-2024 11:26-0500Heart rate71 /min Cedric Carr MD Work Phone: [phone])[facility] [place], [place] [address]Tisutbohkd77-28-9406 11:26-8459GsT3% (BldA) [Mass fraction]99 %Cedric Carr MD Work Phone: [phone] [place], [place] 8165612-09-2024 11:26-0500Systolic blood mm[Hg]Cedric Carr MD Work Phone: [phone] [place], [place] 8165602-12-2024 11:54-0500Body mass index (BMI) [Ratio]22.96 kg/m6TpkbcmCedric Carr MD Work Phone: [phone] [place], [place] 8165602-12-2024 11:54-0500Body .49 kgCedric Carr MD Work Phone: [phone] [place], [place] 8165602-12-2024 11:54-0500Diastolic blood zmolrsyk70 mm[Hg]Cedric Carr MD Work Phone: [phone] [place], [place] 8165602-12-2024 11:54-0500Systolic blood cxycwaoy433 mm[Hg]Cerdic Carr MD Work Phone: [facility] HospitalMfimgilseh46-78-8445 14:02-0400BP Nmisclsvk07 mm[Hg]formerly [facility] HospitalAezoxaxrFnshQeotsu34-42-6575 14:02-0400BP Grwfzqyl422 mm[Hg]formerly [facility] HospitalGpgxggqhNrkaYlqhwe06-29-5890 13:38-0400BMI (Body Mass Index)24.02 kg/h6Aljflfformerly [facility] HospitalPazhbqxbVwmpCtbjrh27-78-7867 13:38-0400Body Tajpvjgjhnn13.7 [degF]formerly [facility] HospitalCtjhtzmsMhocOaonjp78-00-1182 13:38-0400Body kvtvaw42.67 kgMultiCare Health10-17-2019 13:38-0400Pulse (Heart Rate)53 /minMultiCare Health10-17-2019 13:38-0400Pulse Gqulufce836 %formerly [facility] 03-28-2019 13:38-0400Respiratory Rate16 /minformerly [facility] HospitalUowwazyrXfujCknupa02-31-1731 12:10-0400BP Usbxozape78 mm[Hg]formerly [facility] HospitalLqtloxniNowyUijxbc46-03-4856 12:10-0400BP Pldsriqj508 mm[Hg]formerly [facility] [facility] HospitalFtgkpyhkNfpuPfogzc10-41-9984 12:10-0400Pulse (Heart Rate)44 /minformerly [facility] HospitalRuycimnrRdwgIgyvsw86-53-7853 12:10-0400Pulse Aybxcuel73 % formerly [facility] HospitalQvaeurrvNtorWnjiyg14-55-0810 12:10-0400Respiratory Rate13 /minformerly [facility] HospitalBkdvamsxRcarTfykph52-58-0102 09:40-0400BMI (Body Mass Index)24.33 kg/c2HsjkkMartin Memorial HospitalVphqkCspeDehyqy99-95-0814 09:40-0400Body Ymbggkhrjbr03.59 [degF]Talisha Bush EvawWlahrk58-18-5298 09:40-0400BP Iiaybakkl75 mm[Hg][facility] 04-[facility]2018 09:40-0400BP Iwbgrzfu688 mm[Hg]Talisha NxxpuElhxOywwgo62-64-2292 09:40-0400Pulse (Heart Rate)48 /minElite Medical Center, An Acute Care HospitalMhogjIsesDhzemk36-45-9727 09:40-0400 Pulse Laiakbwv85 %Talisha ZebpsTgovLitugt06-33-7406 09:40-0400Respiratory Rate16 /minTalisha BushMegzmPukoBzinjk19-13-3113 09:40-7661Cwqiih11.58 kgCutler Eleazar IkxeOpyhjr54-01-3372 16:23-0400BP Hcpvlwqii38 mm[Hg][facility]09-13-2018 16:23-0400BP Vzicbqpy633 mm[Hg][facility]09-13-2018 16:23-0400Pulse (Heart Rate)54 /minGeneRiley Hospital for Children09-13-2018 16:23-0400Respiratory Rate19 /min [facility]09-13-2018 15:00-0400Pulse Hqsfwkzr19 % [facility]09-13-2018 10:55-0400Body Temperature 97.2 [degF][facility]09-13-2018 08:46-0400BMI (Body Mass Index)24.33 kg/j1GxmpumlRiley Hospital for Children09-13-2018 08:46-1199Cjolje375.[address] [facility]09-13-2018 08:46-9921Ansiee02.[address] [facility]07-17-2018 13:40-0400BMI (Body Mass Index)24.33 kg/u1QfjlwkMercy Health Fairfield HospitalCauhjflPzstXqhkqq73-32-6938 13:40-0400Body Oppetvrlzqb98.59 [degF]Boy PhyrvbwQkzeMaxqbh97-17-4372 13:40-0400BP Plglorolz57 mm[Hg]Boy CarreraQptmrdiFxlpAtqzvg74-00-8134 13:40-0400BP Qrhalicd561 mm[Hg]Boy MtxwqcoIykdCifnfv31-55-0731 13:40-6445Hfjnku922.7 cm [facility] HospitalRzmkfikCtoqPdvylo69-36-8178 13:40-0400Pulse (Heart Rate)54 /minSteven UmvakpdZzyoFxwjwl93-58-4901 13:40-0400Pulse Anpflmrv47 %Boy YakubovOhioHealth 12-26-2017 13:40-0400Respiratory Rate16 /minSteven XnswcugBqdvQxmffk66-60-6966 13:40-2246Skxufz01.58 kgStgala CarrerakubovOhioHealth Encounters Encounter DateEncounter TypeCare ProviderFacilityStart: 02-24-2025 End: 89-20-6270qgktulzdzvAFWHXQ J HEMEYERMercy Hospital [facility] AvailableStart: 02-24-2025 End: 18-04-0943Zecvlt outpatient visit 25 minutesCedric Carr MD Work Phone: [facility] [address] [facility] MedicineComment on above: Compression fracture of L2 vertebra, sequela; Chronic [...] hypertension ; Chronic kidney disease, stage 3a ([facility])Start: 12-19-2024 End: 90-93-1448wzllsfuglpUQWYBEJJKSouthwest General Health Centertart: 91-95-0206pmewccxamnZfuFbiuvk Hospital Ambulatory PPGStart: 10-23-2024 End: 65-03-6847Pvtqbshuqx and management of inpatientJustin Marcelino Rachel MD Work Phone: p[facility] - GEN 2 AcuteComment on above:Lumbar compression fracture ([facility]) (Primary Dx)Start: 09-11-2024 End: 76-28-8817Bfpnqy flowsNatasha Carr MD Work Phone: [facility] CI FM 100Start: 09-11-2024 End: 37-75-2675Fomboomichael Carr MD Work Phone: [facility] CI FM 100Start: 09-11-2024 End: 80-31-6501Cxhqjk outpatient visit 10 minutesCedric Carr MD Work Phone: [facility] CI FM 100Comment on above:Laceration of left wrist, subsequent encounter; Encounter for examination following treatment at hospital; Encounter for staple removalStart: 09-11-2024 End: 94-08-8677payoerkgueQYHYBO J HEMEYERNot AvailableStart: 05-28-2024 End: 51-67-7790Hrlplmihl Result EncounterEdgail Carr MD Work Phone: [facility] External Department UnsolicitedStart: 05-28-2024 End: 65-36-1915Brdagsbve Result EncounterEdgail Carr MD Work Phone: NOZO External Department UnsolicitedStart: 05-20-2024 End: 44-75-4972Pzzgjp flowsNatasha Carr MD Work Phone: [facility] CI FM 100Start: 05-20-2024 End: 74-63-5357Dmajyx flowsNatasha Carr MD Work Phone: [facility] CI FM 100Start: 05-20-2024 End: 54-40-0854Qsaegr outpatient visit 25 minutesEdgail Carr MD Work Phone: [facility] CI FM 100Comment on above:Acute pain of left shoulder (Primary Dx); 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); Moderate major depression (CMS/HCC); Generalized anxiety disorder (CMS/HCC); Controlled substance agreement signed; Fall, sequela; Benign essential hypertension (CMS/HCC)Start: 05-20-2024 End: 76-35-6827padmmorfhoODRKXS J HEMEYERNot AvailableStart: 04-24-2024 End: 83-03-5345Zqxfnqimw encounterEdgail Carr MD Work Phone: [facility] CI FM 100Start: 75-66-5688Iqywms flowsNatasha Carr MD Work Phone: [facility] BNS FMStart: 63-48-5106Sizdjy flowsNatasha Carr MD Work Phone: [facility] BNS FMStart: 07-24-2023 End: 25-65-6391Kahoel outpatient visit 25 minutesEdgail Carr MD Work Phone: [facility]OCT[facility] FMComment on above:Vascular dementia without behavioral disturbance (CMS/HCC); White matter disease; Chronic fatigue; Polypharmacy; Generalized weakness; At risk for falling; Moderate major depression (CMS/HCC)Start: 03-24-2023 End: 89-10-9378kaliyisrmnQVCFGF [facility] Start: 08-24-2022 End: 26-43-2609rzelitmfzpWCCGNRF [facility] Daytontart: 02-03-2022 End: 63-05-7469mcfvjluiyzWAAXFYU BOESFacility:M6Sswfy: 77-49-6931ljsuinoyghJG CEDRIC CARRFacility:W5Vyzby: 07-22-2021 End: 48-16-6221mppxqmzmpnFK CEDRIC CARRFacility:U9Fzvsr: 07-21-2021 End: 07-37-1464nastkzruptFEWOGYH BOESFacility:C8Zeply: 10-31-2020 End: 95-53-7681Anugzinfrh and management of inpatientASIF MAHMOODFacility:[facility] Start: 06-26-2020 End: 59-16-3102Ibooow OnlyKatalistairirasema Pura Mcgrath Work Phone: [facility] Start: 04-30-2020 End: 55-27-1469Rjwuzfq encounter procedureCoshocton [facility] Start: 04-30-2020 End: 37-87-9056Tbwlxuzvxq hospital visit by physicianMwh Additional Xray At Mw MWHZ LaboratoryComment on above:Essential hypertension; Other hyperlipidemia; Vitamin D deficiency disease; Chronic atrial fibrillation currently in NSR for 3 years on flecainaideVitamin D deficiency disease; Essential hypertension; Other hyperlipidemiaStart: 03-23-2020 End: 82-62-7335Estzrcrbecovm procedureStaciagus JeanOhioHealth [facility] Heart [facility] CenterStart: 08-65-6253Kbllymv encounter procedure ANGELA DUNIA MECHLINGood Samaritan Hospitaltart: 89-40-1325Zcwrfjd encounter procedureMAXJUAN DAVID SwansonWabash County Hospitaltart: 04-16-2019 End: 35-06-8573Qvaylnrkou hospital visit by physicianElda Burks [facility] RadiologyComment on above:Essential hypertensionEssential hypertension; Chronic atrial fibrillation currently in NSR for 3 years on flecainaide; Vitamin D deficiency disease; Other hyperlipidemiaEssential hypertension; Chronic atrial fibrillation currently in NSR for 3 years on flecainaideStart: 03-28-2019 End: 60-81-3179Cbxjrpk encounter procedureMAXJUAN DAVID PERDUE LYNDSEYElizabethWabash County Hospitaltart: 03-28-2019 End: 70-90-1409Kekuyn outpatient visit 15 minutesAusten Jeff Work Phone: [facility] CenterComment on above:PAF (paroxysmal atrial fibrillation) ([facility])Start: 09-12-2018 End: 40-73-0073Vbniaemrycscx procedureStaciagus JeanMary Rutan HospitalStart: 04-06-2018 End: 25-77-2380Wabvocf encounterMaxjuan david Perdue Shar Work Phone: [facility] Comment on above:PAF (paroxysmal atrial fibrillation) ([facility])Start: 04-06-2018 End: 12-44-2788Piwhsc outpatient visit 15 minutesCedric Carr Work Phone: [facility] CenterComment on above:PAF (paroxysmal atrial fibrillation) ([facility]); MENDEZ (acute kidney injury) (HCC)Start: 02-22-2018 End: 17-89-4681Pqcxfpfleq and management of inpatientGeneric [facility] Procedural Care UnitComment on above:PAF (paroxysmal atrial fibrillation) (HCC); PAF (paroxysmal atrial fibrillation) (HCC)Start: 98-65-7010Tdbqwvq encounterYelena BushThe University of [facility]edo Medical CenterStart: 01-25-2018 End: 29-34-3234Bykmahy encounterRATJAVIER [facility] Start: 64-11-7169Opbtudy encounterLalita PurdyThe University of [facility] Medical CenterStart: 12-26-2017 End: 53-97-7617Aznkdd outpatient new 60 minutesDawjuma Smith Work Phone: [facility] Procedures DateProcedureProcedure DetailPerforming ClinicianStart: 85-47-5209Ccbuf metabolic panel calcium totalStephanie N Katelin [employer]-ENAMEL BUFFER Work Phone: Start: 54-09-8917Hprig metabolic panel calcium total Lakeshia N Katelin [employer] WORKER-ENAMEL BUFFER Work Phone: Start: 50-04-6520Rhonk metabolic panel calcium total Lakeshia N Katelin [employer]-ENAMEL BUFFER Work Phone: Start: 05-87-4284UIHJPULY Kingston Rachel MD Work Phone: start: 83-92-5442Aymm tst prsmv instrmnt chem analyzers pr datePalmira TOMAS Work Phone: Start: 98-30-5559QmizkefesyHulsdcs Weirich PA Work Phone: Start: 10-23-2024 End: 65-03-7362Pierdmgt screenJewel Vail MD Work Phone: Comment on above:Performed By: #### TSC ####[facility] ([facility])[address] [place] [address] VIRStart: 10-23-2024 Radiologic examination pelvis 1/2 viewsPalmira TOMAS Work Phone: Start: 46-15-8328Zjgspjuoqe exam chest single view Palmira OTMAS Work Phone: Start: 24-10-5774Pfzma typing serologic aboPalmira TOMAS Work Phone: Start: 18-22-5626Zzlakypqpsndo metabolic panelPalmira TOMAS Work Phone: Start: 64-13-4415Rldxbgo [Mass/volume] in Serum or PlasmaBethniko TOMAS Work Phone: Start: 26-69-6780BCDRQWVU ABORHBethniko TOMAS Work Phone: Start: 34-85-4686Bbiic shoulder complete minimum 2 viewsEdgail Carr MD Work Phone: Start: 88-28-8899Mdaluv-up visitFollow-upMELISSA TORRIE Start: 73-30-0547ERTEBPCH OF 1 COR ART WITH DRUG-ELUT INTRA, PERC APPROACHRAASHLEY GUPTAStart: 56-16-0801YXCFE RADIOGRAPHY OF MULT COR ART USING OTH CONTRAST EVELYN GUPTAStart: 33-17-4323Eja routine ecg w/least 12 lds w/i&rGREG VIGESAA Start: 67-76-5095Fgxbxuhkvv exam chest 2 viewsGREG VIGAAStart: hydroxy includes fractions if performedGREG VIGESAAStart: 71-07-2781Muqts of magnesiumGREG VIGESAAStart: 81-08-2088Bjbkz of thyroid stimulating hormone tsh KYLE VIGAAStart: 25-41-0174Cnzkm count complete auto&auto difrntl wbcGREG VIGAAStart: 45-11-2669Kbulz typing serologic aboGREG VIGESAAStart: 04-30-2020 Comprehensive metabolic panelGREG VIGESAAStart: 99-28-6710Bexyq panelGREG VIGESAAStart: 36-53-8114Cvxteakqic exam chest 2 viewsGreg S Vigesaa Work Phone: Start: hydroxy includes fractions if performedGreg S Vigesaa Work Phone: Start: 40-64-0119Vjnuu of magnesiumGreg S Vigesaa Work Phone: Start: 47-37-8118Jzyfs of thyroid stimulating hormone tshGreg S Vigesaa Work Phone: Start: 50-73-9596Evnho count complete auto&auto difrntl wbcGreg S Vigesaa Work Phone: Start: 69-24-4891Mdooounxryprx metabolic panelGreg S Vigesaa Work Phone: Start: 92-18-1516Ouaea panelGreg S [employer] Work Phone: Start: 84-95-8623HYMFQQQ FASTING?Kyle Adam [employer] Work Phone: Start: 63-58-9988Mdjcnhceoz exam chest 2 viewsGreg S [employer] Work Phone: Start: 92-24-571418 hydroxy includes fractions if performedGreg S [employer] Work Phone: Start: 14-62-0465Hghna of magnesiumGreg S [employer] Work Phone: Start: 42-57-9434Qauyv of thyroid stimulating hormone tshGreg [employer] Work Phone: Start: 21-96-4927Lzpyh count complete auto&auto difrntl wbcGreg S [employer] Work Phone: Start: 37-64-7062Cflpqenonfqpw metabolic panelGreg [employer] Work Phone: Start: 43-20-2909Puggt panelGreg S [employer] Work Phone: Start: 12-48-1310SHVDTPK FASTING?Kyle [employer] Work Phone: Start: 56-30-3747Gaplt metabolic 2000 panel - Serum or PlasmaMaxwel Nette Glam .fr Francemikal Work Phone: Start: 36-74-6468Lpvptbyj blood count with white cell differential, automatedMaxwel Nette Collusionalicia Work Phone: Start: 32-90-6620Xicfwbdr blood count with white cell differential, manualMaxwel Nette Glam .fr Francemikal Work Phone: Start: 04-06-2018 End: 94-79-0942Invzazgrreanfrq echocardiographyMaxweblueKiwi Nette Glam .fr Francemikal Work Phone: Start: 02-22-2018 End: 66-20-7054Xwh echocard color flow velocity mappingMaxwel Nette Jeff Work Phone: Start: 02-22-2018 End: 35-40-3504Msqna metabolic 2000 panel - Serum or PlasmaMaxwel Nette Jeff Work Phone: Start: 02-22-2018 End: 06-61-4176Nqwpobjx blood count (hemogram) panel - Blood by Automated count Casper Bustos Work Phone: Start: 02-22-2018 End: 38-78-2229ORLW ATRIAL APPENDAGE LIGATIONDapatricia Hannah Smith Work Phone: Start: 02-22-2018 End: 77-08-3482Oiew raymond guid tcat icar/vessel structural intvnSteven Jace Carrerakubov Work Phone: Start: 02-22-2018 End: 27-30-0432Jvbol count complete auto&auto difrntl wbcMaxjuan david Jeff Work Phone: Start: 02-22-2018 End: 87-14-4590DTN INR - RALSGeneric [facility] Cardiology IncStart: 02-22-2018 End: 39-18-3861NSVVPDA RBCMaxwel Nette Jeff Work Phone: Start: 83-96-5223Ey head/brain w/o contrast material MAEVE DESOUZA Plan of Treatment DateCare ActivityDetailAuthorStart: 96-90-4462LHzT/Tdap/Td Vaccines (4 - Td or Tdap)DTaP/Tdap/Td Vaccines (4 - Td or Tdap)[facility] HealthcareStart: 12-23-2025 Tetanus vaccinationOhioHealthStart: 36-63-5584LTWWN-19 Vaccine ( season)COVID-19 Vaccine ( season)[facility] HealthcareStart: 02-10-2025 Influenza vaccinationNOMA HealthcareStart: 12-11-2024 End: 06-13-9248Cvhgewg encounter vbluvqfvv35/02/2025 1:00 PM EDT Office Visit [facility] [address] [place] [phone] Cha Villalpando MD [address] [facility] [address] [place] [address] [facility] NeuroSurgeryStart: 10-25-2024 End: 72-64-3333UV Lumbar spine WO contrastMR lumbar spine without contrast Imaging Routine Lumbar compression fracture (CMS-HCC) Expected: 10/25/2024, Expires: 10/25/2025[facility] Work Phone: Comment on above:Expected: 10/25/2024, Expires: 10/25/2025Start: 09-11-2024 End: 97-66-6714Kcyyyve encounter yskcxbnbi96/02/2025 2:00 PM EDT Office Visit [facility] 100 [address] [facility] [address] [place] [address] Cedric Carr MD [address] [facility] [address] [place] [address] Encounter for examination following treatment at hospital; Encounter for staple removal; Laceration of left wrist, subsequent encounterNOMS CI FM 100Comment on above:Encounter for examination following treatment at hospital; Encounter for staple removal; Laceration of left wrist, subsequent encounterStart: 05-20-2024 End: 73-69-8827PW Shoulder - left 2 ViewsXR shoulder 2+ views left Imaging Routine Acute pain of left shoulder Fall, sequela Expected: 05/20/2024 (Approximate), Expires: 05/20/2025[facility] Work Phone: Comment on above:Expected: 05/20/2024 (Approximate), Expires: 05/20/2025Start: 05-20-2024 End: 17-28-4451Tnliptd encounter procedureNOMS CI FM 100Comment on above: Moderate major depression (CMS/HCC); Generalized anxiety disorder (CMS/HCC); Mild cognitive impairment; Vascular dementia without behavioral disturbance (CMS/HCC); 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); Controlled substance agreement signedStart: 58-01-2873Yqzgbptyq vaccination Influenza Vaccine (#1)NOM HealthcareStart: 08-02-2023 End: 76-53-4739vbtbvnmpda37/21/2024 10:00 AM EST Evaluation [facility] [address] [place] [address] Tish Yañez, KADENNOMS CI PTStart: 07-24-2023 End: 74-62-1338Jtdoreo encounter vanpfdigm60/12/2024 11:30 AM EST Office Visit [facility] [address] [place] [address] Cedric Carr MD [address] [place] [address] (Fax) Vascular dementia without behavioral disturbance (CMS/HCC); White matter disease; Adult situational stress disorder (CMS/HCC); Moderate major depression (CMS/HCC); Chronic fatigue; PolypharmacyNOMS S Comment on above:Vascular dementia without behavioral disturbance (CMS/HCC); White matter disease; Adult situational stress disorder (CMS/HCC); Moderate major depression (CMS/HCC); Chronic fatigue; PolypharmacyStart: 05-59-6907Jfhxayggb vaccinationInfluenza Vaccine (#1)[facility] HealthcareStart: 08-24-2023Medicare Annual Wellness (AWV)Medicare Annual Wellness (AWV)[facility] HealthcareStart: 22-01-0625Jsxxdugdhc measurementCreatinine monitoringUniversity Hospitals Tripoint Medical Center HealthLEE'S [facility], [place]Start: 28-02-8902Wnxtz panelLipid screenKettering Health Hamilton, [place]Start: 27-93-3700Wfrzeioqa monitoringPotassium monitoringKettering Health [place], [place]Start: 10-29-2020 End: 94-91-9955Iqdxrh Visit10/29/2020 Office Visit Cardiology Kyle Ruth MD [address] [place] [address] [facility] Cardiology SpecialistStart: 05-83-6031Eaytkxwsiz measurementCreatinine NapartnerUniversity Hospitals Tripoint Medical Center [place], [place]Start: 82-41-6581Hgqdccqtir monitoringCreatinine monitoringOt[place], KYStart: 88-04-8865Wzobi panelLipid screenOt[place], KYStart: 51-69-1805Keygg screenLipid screenOtter, [place] Start: 68-99-1501Pzmqveklq monitoringPotassium monitoringOt[place], [place] Start: 45-07-4437Jcbnjuycu vaccinationFlu vaccine (#1)[place], [place]Start: 92-99-6517Gqiinhjkv vaccination givenSequential Influenza Vaccine (#1) [facility]Start: 11-07-2019 End: 09-94-9080Ngqbpo Visit11/07/2019 Office Visit Cardiology Kyle Ruth MD [address] [place] [address] [facility] Cardiology SpecialistStart: 44-64-9300Pvhrkhg and physical examination, annual for health [facility] VisitOhioHealthStart: 47-56-5044Fttxjjdev vaccinationFlu vaccine (#1)[place], [place]Start: 34-04-6862Tddyvvvhn vaccination givenSEQUENTIAL INFLUENZA VACCINE (#1)[facility]HealthStart: 12-02-2018 Annual Wellness Visit (AWV)Annual Wellness Visit (AWV)[place], [place]Start: 04-06-2018 End: 78-30-4170Jzzusejlsm38/26/2018 Office Visit Cardiology Austen Jeff, ENAMEL BUFFER [address] [place], [place] [phone] [facility] ExcellenceStart: 02-22-2018 AmbulatoryRiPremier Health [facility] Cath LabStart: 09-07-3146Xqhgmyyvh vaccinationSEQUENTIAL INFLUENZA VACCINE (#1)[facility]HealthStart: 80-27-0201Ulmestnjh vaccination givenSEQUENTIAL INFLUENZA VACCINE (#1)[facility]HealthStart: 2004 Fall risk assessmentSteadi Fall Risk AssessmentOhioHealthStart: 2004 Pneumococcal 65+ years Vaccine (1 of 1 - PPSV23)Pneumococcal 65+ years Vaccine (1 of 1 - PPSV23)[place], [place]Start: 00-74-4382Sutzuvfdkkpu vaccination PNEUMOCOCCAL VACCINE AGE 65+ (1 of 2 - PCV13)[facility]HealthStart: 70-70-6830Ucvuqc vaccine hzv live for subcutaneous useZOSTER VACCINEOhioHealthStart: 1989 Administration of herpes zoster vaccineZOSTER VACCINES (1 of 2)OhioHealthStart: 40-20-5061Eymfteze Vaccine (1 of 2)Shingles Vaccine (1 of 2)[place] Start: 85-06-3491UGXWJR VACCINES (1 of 2)ZOSTER VACCINES (1 of 2)[facility] Start: 29-89-2519LTtB/Tdap/Td vaccine (1 - Tdap)DTaP/Tdap/Td vaccine (1 - Tdap) [place], [place]Start: 81-23-1977Vseqoeccho depression screening assessment Depression Screening (PHQ9)[facility]HealthStart: 42-77-0969Raalpbx DL <= 20 mg/L mass conc (U)URINE MICROALBUMINOhioHealthStart: 66-28-1886Romuhpg and physical examination, annual for Self [facility] VisitOhioHealthStart: 46-95-2643Xsyu risk assessmentFalls Risk AssessmentOhioHealth End: 05-32-9232Dbtwa metabolic 2000 panelBasic Metabolic Panel Routine PAF (paroxysmal atrial fibrillation) ([facility]) 1 Occurrences starting 04/06/2018 until 04/06/2019OhioHealthComment on above:1 Occurrences starting 04/06/2018 until 04/06/2019Basic metabolic 2000 panelBasic Metabolic Panel Routine PAF (paroxysmal atrial fibrillation) ([facility]) 04/06/2018 10:12 AM EDTOHolzer Medical [facility] metabolic 2000 panel - Serum or PlasmaBasic Metabolic Panel Lab Routine Lab max of 3 days, Daily, for lab use only until discontinued starting 10/24/2024, [address] completedSt[address] [facility] SystemComment on above:Lab max of 3 days, Daily, for lab use only until discontinued starting 10/24/2024, 3 completedCardiac catheterizationCardiac Catheterization Routine PAF (paroxysmal atrial fibrillation) ([facility]) 02/22/2018 10:49 AM EDTOhioHealthCBC W Auto Differential panel - BloodCBC auto differential Lab Routine Lab max of 3 days, Daily, for lab use only until discontinued starting 10/24/2024, [address] completedSt[address] [facility] Hospital SystemComment on above:Lab max of 3 days, Daily, for lab use only until discontinued starting 10/24/2024, 3 completedEKG 12 [facility] [place] [place] Oxygen Therapy - Maintain SpO2: 90%; *DIVISION HEAD Guidelines for O2: Yes; Document: \phsi.[email or web address]\epic\EPIC_Reference\Orders\Respiratory Care Guidelines\CPG Oxygen 2022.pdfOxygen Therapy - Maintain SpO2: 90%; *DIVISION HEAD Guidelines for O2: Yes; Document: \[email or web address]\epic\EPIC_Reference\Orders\Respiratory Care Guidelines\CPG Oxygen 2022.pdf Respiratory Care Routine AsNeeded until discontinued starting 10/23/2024[facility] HospitalRight [facility] Work Phone: Comment on above:As Needed until discontinued starting 10/23/2024 Immunizations Immunization DateImmunizationNotesCare QkimspcrUboxanzs22-61-3613fbglfag toxoid, reduced diphtheria toxoid, and acellular pertussis vaccine, adsorbedCedric Carr MD Work Phone: [facility] Work Phone: [phone], injectable, quadrivalent, preservative freeCedric Carr MD Work Phone: [facility] HospitalGfuwcmeccp68-68-2799ydrwcnfek virus vaccine, unspecified formulationCedric Carr MD Work Phone: [facility] HospitalDbzuersvta92-06-5016ngnbdgpkl, injectable, quadrivalent, preservative freeCedric Carr MD Work Phone: [facility] HospitalZamlkmdflm17-52-5116yyuojidnl, injectable, quadrivalent, preservative freeCedric Carr MD Work Phone: [facility] HospitalMsvsmxclhb18-68-7719rspsemsvn, high dose seasonal, preservative-freeCedric Carr MD Work Phone: [facility] HospitalIuptgijmwc22-70-7967xvxfxekpi, injectable, quadrivalent, preservative freeCedric Carr MD Work Phone: [phone] [place], [place] [address]Vcejybeyaf36-31-8473ytwmahpvd, injectable, quadrivalent, preservative freeCedric Carr MD Work Phone: [phone] [place], [place] [address]Xrdcplbeft35-55-6143ppqykfwyc, seasonal, injectable, preservative freeCedric Carr MD Work Phone: [phone] [place], [place] [address]Dzboqbzlpw36-55-5112yzhxychcy, injectable, quadrivalent, preservative freeCedric Carr MD Work Phone: [phone] [place], [place] [address]Lclhqekzmz20-34-0658ptqqmhjhnlrh conjugate vaccine, 7 valLinda Carr MD Work Phone: [phone] [place], [place] [address]Fdrgvqllcu10-87-8526aujmzwrdklih Conjugate, unspecified formulationCedric Carr MD Work Phone: [phone] [place], [place] [address]Fmslravjog97-74-6718dwkhees and diphtheria toxoids, adsorbed, preservative free, for adult use (5 Lf of tetanus toxoid and 2 Lf of diphtheria toxoid)Cedric Carr MD Work Phone: [phone] [place], [place] [address]Fsvtjtonpm40-12-5601ukkyllbvm virus vaccine, unspecified formulationCedric Carr MD Work Phone: [phone] [place], [place] [address]Rpconzurep83-90-9153jvagslsvn, injectable, quadrivalent, preservative freeCedric Carr MD Work Phone: [phone] [place], [place] [address]Ftovakyhnm13-86-7572prxteexqcjgr conjugate vaccine, 13 valLinda Carr MD Work Phone: [phone] [address] [place], [place] [address]Kycrfoomvd39-68-4435cbqunfqez, seasonal, injectable, preservative freeCedric Carr MD Work Phone: [phone] [place], [place] [address]Pvrixlnprd55-63-2450hwbdenhcaq, tetanus toxoids and acellular pertussis vaccineCedric Carr MD Work Phone: [phone] [place], [place] [address]Qcckcwjvon58-85-2745gzvogdcjh virus vaccine, unspecified formulationCedric Carr MD Work Phone: [phone] [place], [place] [address]Iioqzvujdr70-74-8074gthtexbdz, injectable, quadrivalent, preservative freeCedric Carr MD Work Phone: [facility] HospitalLoxntmvaxa60-94-2827hlqzyyfmj virus vaccine, unspecified formulationCedric Carr MD Work Phone: [facility] HospitalGmujxedumm40-68-4101ktifraoso, injectable, quadrivalent, preservative freeCedric Carr MD Work Phone: [facility] HospitalZvhmmhkxmq37-25-6083pvyswvagu virus vaccine, unspecified formulationCedric Carr MD Work Phone: [facility] HospitalKykcqanhka86-89-9810sqbmdftpc, injectable, quadrivalent, preservative freeCedric Carr MD Work Phone: [facility] HospitalEznteztlpn20-51-8184yaglwgwzf virus vaccine, unspecified formulationCedric Carr MD Work Phone: [facility] HospitalXsctlverqi46-41-7248voazifanyumk polysaccharide vaccine, 23 valentEdgail Carr MD Work Phone: [facility] HospitalNdwkkvdncg66-91-9193risgrhpdcvzp vaccine, unspecified formulationCedric Carr MD Work Phone: [facility] Payers DatePayer CategoryPayerPolicy [id number] Care Other (unspecified) COMMERCIAL [id number] Health Insurance [facility] Member Subscriber Plan / Payer (Effective 2022-Present) Name: Nette Hammond Relation to Subscriber: Self Name: Nette Hammond Payer ID: Not on file Group ID: Not on file Type: Not on file Address: [address] [place] [id number] [employer] [id number] 2022-Present [address] [place] [address] [id number] VA-MISC xxxxxxxxx 2019-xxxxxxxxx [id number]418-77-0441 [id number] VA MISC [id number] 2019-Present [id number] 1.2.840.040411.1.13.385.2.7.3.556551.315 [id number] 1.2.840.832629.1.13.385.2.7.3.925563.11521-55-3044 UnknownCOMMERCIAL [facility] [id number] 2009-[id number] 1.2.840.224971.1.13.385.2.7.3.150071.315 2005Medicarexxxxxxxxxxx 1.2.840.788516.1.13.385.2.7.3.202353.315 2005MedicareMEDICARE MEDICARE PART A & B [id number] 2004-Present [id number] 1.2.840.659940.1.13.385.2.7.3.245380.315 2005Medicare 1.2.840.398747.1.13.693.2.7.3.660079.315 [id number] 1960 [id number] 1960Self-[id number] 1940 [id number] 2.16.840.1.201275.3.57[id number] 2.16.840.1.153278.3.57[id number] 2.16.840.1.707843.3.57[id number] 2.16.840.1.903391.3.57[id number] 2.16.840.1.124961.3.57[id number] 2.16.840.1.395211.3.57[id number] 2.16.840.1.032170.3.57[id number] 2.16.840.1.289768.3.57[id number] 2.16.840.1.195696.3.57[id number] 2.16.840.1.329453.3.57[id number] 2.16.840.1.766150.3.57[id number] 2.16.840.1.032032.3.57[id number] 2.16.840.1.642324.3.57[id number] 2.16.840.1.586420.3.57[id number] 2.16.840.1.751435.3.57[id number] 2.16.840.1.358980.3.57[id number] 2.16.840.1.030721.3.57[id number] 2.16.840.1.980173.3.57[id number] 2.16.840.1.781164.3.57[id number] 2.16.840.1.004587.3.579.2.1259 Social History DateTypeDetailFacilityStart: 12-26-2017 End: 17-82-6730Olpyxhb smoking status NHISFormer smokerOhioHealth End: 27-29-2920Ofkoxdk of tobacco useCurrent smokerOhioHealthStart: 1940 Sex Assigned At BirthNot on fileOhioHealthStart: 03-28-2019 End: 32-04-5418Ocvucqa intakeCurrent non-drinker of alcohol (finding)[facility] End: 56-31-4508Bdfbptf of tobacco useCigarette SmokerK[facility]: 04-16-2019 End: 40-37-6455Pdawkiz intakeNoKettering Health [facility]: 03-28-2019 End: 68-48-5552Aghtyqf use and exposureNever usedOhioHealthStart: 04-30-2020 End: 17-64-1431Odvvqqcpre smoked current (pack per day) - [place]Ot[place], [place]: 18-34-3915Orcugst use and exposureFormer userOt[place], [place] End: 88-82-7206Yhiohas of tobacco useUser of smokeless tobaccoOtter, [place]Start: 72-43-7901Qcozrlq smoking status NHISNever smoked tobaccoSTEWARD HEALTH CARE SYSTEM HealthcareStart: 04-13-2023 End: 22-23-1311Zlckvxr intakeEx-drinker (finding)[facility] HealthcareStart: 32-87-5570Rzbmhhobm71SFOK HealthcareHas the [employer] gas, oil, or water company threatened to shut off services in your home in past 12[facility] SystemHow often to you have a drink containing alcohol?NeverC[facility] Clinic [facility] Webupo SystemStart: 20-98-1453Jbg many standard drinks containing alcohol do you have on a typical day?Patient does not drinkSt. Francis Hospital SystemStart: 10-22-2024 SexMale (finding)[facility] Medical Equipment Procedure CodeEquipment CodeEquipment Original TextEquipment IdentifierDates Closure 6fr Proglide - [id number]: 35-99-0865Hcycwm 21mm Watchman Sandy Closure - [id number]: 18-48-1137Ndgcfs Watchman Procedure Sandy Closure - [id number]: 70-88-5927Slmevqh 6fr Proglide - [id number]: 02-22-2018 Device 21mm Watchman Sandy Closure - [id number]: 62-69-1710Fjpokz Watchman Procedure Sandy Closure - [id number]: 95-64-1858Nkutmyp 6fr Proglide - [id number]: 40-27-7331Vmlddg 21mm Watchman Sandy Closure - [id number]: 76-90-5522Googja Watchman Procedure Sandy Closure - [id number]: 02-22-2018 Closure 6fr Proglide - [id number]: 17-37-0477Jipnvo 21mm Watchman Sandy Closure - [id number]: 90-00-5971Nzkzlf Watchman Procedure Sandy Closure - [id number]: 22-06-9698Lheuaeu 6fr Proglide - [id number]: 02-22-2018 Device 21mm Watchman Sandy Closure - [id number]: 00-15-3866Keqnbz Watchman Procedure Sandy Closure - [id number]: 32-08-5280Npcchnc 6fr Proglide - [id number]_xcmUmcsv: 74-88-0517Kmnfcm 21mm Watchman Sandy Closure - [id number]_spcCaygo: 55-81-9651Fadudi Watchman Procedure Sandy Closure - [id number]: 02-22-2018 Goals DatePatient GoalDesired Activity/StatePersonal health goalComment on above: Evaluation of progress towards goal: SNF list provided. Functional Status KwsvPmnzdalvvjUieorjCmnqlkwl40-74-1337Gefip score [AUDIT-C]0 10/23/2024 9:53 AM EDT Natty Camejo, [facility] CenterQcwand30-42-2839Hwonifiraam, Afraid, Rape, and Kick questionnaire [HARK][facility]04-02-2025Patient Health Questionnaire 2 item (PHQ-2) [Reported][facility] Mental Status DateAssessmentResultJefferson [facility] Notes 11-03-2020 to 02-24-2025 Note Date & RvixSobpUyqxfdyp29-73-1897 History of Present illness Narrative* Cedric Carr MD - 02/24/2025 3:00 PM EDT Images from the original note were not included. Patient ID: Nette Hammond is a 84 y.o. male who presents for: Discuss CCM and enrolling him The patient has with them today and independent historian; His daughter. The independent historian is here to ensure that the information related to us in the HPI and review of systems is accurate. They are also here to help the patient to understand and follow through with treatment plans established today. Anxiety Patient is here for evaluation of anxiety. He/She has the following anxiety symptoms: difficulty concentrating, racing thoughts. Onset of symptoms was approximately several years ago. Symptoms have been stable since that time. He/She denies current suicidal and homicidal ideation. Family history sig nificant for no psychiatric illness.Possible organic causes contributing are: none. Previous treatment includes medication benzodiazepines Xanax and Lexapro. He/She complains of the following medication side effects: sedation. Dementia/Memory Loss: He/she is accompanied by children. Primary caregiver is patient and children, nurse PT OT, assisted, granddaughter staying with him at night. Patient is living at home with granddaughter there with him in the evening. The family and the patient identify problems with changes in short and continuous churn buttermaker memory, day/night changes, and wandering. Family and patient report problems with delusional thinking. Family and patient are concerned about wandering, however, they are not concerned aboutmedication errors and being home alone. Medication administration: caregiver monitors the use of medications. Chronic Pain: Pt is here for follow-up of chronic pain related to back from fx due to multiple falls. Her/His pain is waxing and waning but worse overall. Pain is usually 4/10, described as aching and occurs everyday. Lidocaine patch failed Flowsheet Row Patient Outreach from 01/29/2025 [facility] with Nicol Nava [facility] Information ED, Hospital or Residential Facility Discharge? Residential Facility Patient has been contacted within two business days of discharge Yes Have two attempts been made to contact the patient within two business days of being discharged? Yes Discharge Date 01/26/25 Discharged To: Home Setting Residential Facilities [facility] Admission Date 10/26/24 Medications Discharge medications reviewed and reconciled from hospital? Yes Is the patient having any side effects they believe may be caused by any medication additions or changes? No Does the patient have all medications ordered at discharge? Yes Appointments Does the patient have a primary care provider? Yes Nursing Interventions Verified appointment date/time/provider Self Management Patient Teaching Does the patient have access to their discharge instructions? Yes [FAMILY HAS ACCESS] What is the patient's perception of their health status since discharge? Improving Patient/Caregiver Education Comments SON NETTE STATES THAT HE HAS NURSING COVERAGE FROM 7 AM TILL 10 PM DAILY Wrap Up Review of Systems Eating okay. Toileting okay. He appears to be sleeping mostly at nights. They do have cameras in the house. He does take naps during the day occasionally. Objective 09/11/2024 1:57 PM 05/20/2024 11:26 AM 10/17/2023 11:33 AM 07/24/2023 11:54 AM Vitals BMI 23.11 kg/m2 23.11 kg/m2 23.11 kg/m2 22.96 kg/m2 BSA (m2) 1.82 m2 1.82 m2 1.82 m2 1.81 m2 Systolic 110 144 118 Diastolic 70 88 78 Heart Rate 71 82 SpO2 99 % 99 % Height (in) 5' 8 5' 8 5' 8 Weight (lb) 152 152 152 151 Visit Report Report Report Report Report Allergies Allergen Reactions Lisinopril Other Reaction(s): angiodemia Sulfa Antibiotics Other Reaction(s): Hives Current Outpatient Medications on File Prior to Visit Medication Sig Dispense Refill acetaminophen (Tylenol Extra Strength) 500 MG tablet Take 1,000 mg by mouth Daily aspirin 81 MG EC tablet Take 81 mg by mouth Daily cetirizine (ZyrTEC) 10 MG tablet Take 5 mg by mouth Daily hydrOXYzine HCl (Atarax) 10 MG tablet Take 10 mg by mouth in the morning and 10 mg before bedtime. magnesium hydroxide (Milk of Magnesia) 400 MG/5ML suspension Take 30 mL by mouth at bedtime Multiple Vitamin (Multi-Vitamin) tablet Take 1 tablet by mouth in the morning. nystatin (Mycostatin) 236235 UNIT/GM powder Apply 1 application topically if needed for other OXYCODONE HCL PO Take 2.5 mg by mouth every 4 (four) hours if needed (for moderate pain not to exceed 2.5mg daily) senna-docusate (Seema-Colace) 8.6-50 MG tablet Take 2 tablets by mouth at bedtime [DISCONTINUED] ALPRAZolam XR 1 MG 24 hr tablet Take 1 tablet (1 mg) by mouth in the morning. 30 tablet 0 [DISCONTINUED] amLODIPine (Norvasc) 5 MG tablet Take 1 tablet (5 mg) by mouth Daily 90 tablet 1 [DISCONTINUED] escitalopram (Lexapro) 20 MG tablet Take 1 tablet (20 mg) by mouth Daily 90 tablet 1 [DISCONTINUED] losartan (Cozaar) 50 MG tablet Take 1 tablet (50 mg) by mouth Daily 90 tablet 1 [DISCONTINUED] methocarbamol (Robaxin) 500 MG tablet Take 500 mg by mouth in the morning and 500 mgin the evening and 500 mg before bedtime. No current facility-administered medications on file prior to visit. 1. Compression fracture of L2 vertebra, sequela Acute problem that the patient notes really does not bother him. The family is verbalizing they think that is correct. 2. Chronic pain syndrome He does have chronic back pain and pain since the brain bleed. This is probably some degree of central pain. The family and the patient verbalize relief with the medications. - gabapentin (Neurontin) 100 MG capsule; Take 1-3 capsules (100-300 mg) by mouth in the evening As needed for pain Dispense: 90 capsule; Refill: 0 - methocarbamol (Robaxin) 500 MG tablet; Take 1 tablet (500 mg) by mouth 3 (three) times a day Dispense: 270 tablet; Refill: 1 3. 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 I specifically note the patient has one or more high risk medications that is a chronic problem that specifically increases complexity of decision making and complicates all prescribing including prescription renewal consistent with a moderate or complex degree of decision making. A high-risk medicine is one that may cause serious health problems if not taken the correct way, ortaken with another drug or food item that [...] medications need regular review and prescribing optimization. PDMP reviewed, Cedric Carr MD on 02/24/2025 3:35 PM Appears as expected. - escitalopram (Lexapro) 20 MG tablet; Take 1 tablet (20 mg) by mouth Daily Dispense: 90 tablet; Refill: 1 - ALPRAZolam XR 1 MG 24 hr tablet; Take 1 tablet (1 mg) by mouth in the morning. Dispense: 30 tablet; Refill: 0 4. Vascular dementia without behavioral disturbance (HCC) Chronic problem causative to multiple problems. Continue to monitor longitudinally 5. Moderate major depression (HCC) Chronic problem that is stable and cross treated with the above medications. 6. 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 7. Encounter for examination following treatment at hospital This visit is prompted as a transition of care. The patient has been contacted by phone within 2 business days of discharge or at least 2 unsuccessful attempts were made to contact the patient within the 2 business days. Any available documents including; emergency room note, visit notes, consults, and discharge summary or continuity of care documents were reviewed. Any laboratory investigation or diagnostic imaging that was ordered by outside physicians and available was obtained and reviewed. The transition of care note is reviewed. a wwxv-jb-hbcu evaluation is done today. Medical decision making is complex in degree. 8. Controlled substance agreement signed See the scanned document 9. Benign essential hypertension Chronic problem, stable, - losartan (Cozaar) 50 MG tablet; Take 1 tablet (50 mg) by mouth Daily Dispense: 90 tablet; Refill:1 - amLODIPine (Norvasc) 5 MG tablet; Take 1 tablet (5 mg) by mouth Daily Dispense: 90 tablet; Refill: 1 10. Chronic kidney disease, stage 3a (CMS-HCC) Chronic problem that is stable and monitor longitudinally. Please Note: Portions of this chart may have been created using voice recognition software. Occasionally a wrong-word or sound-like substitutions may have occurred due to inherent limitations of the voice recognition software. Please read the chart carefully and recognize, using context, where the substitutions may have occurred. documented in this encounterScotland County Memorial HospitalWbopqpetny03-95-5100 Progress note* Discharge Planning Note - Coleen Malone - 10/26/2024 9:08 AM EDT DISCHARGE PLANNING NOTE BLS via PTN scheduled for today 10/26/24 at 1 PM to [facility]. Confirmed in Zoll. [facility]05-17-2025 Miscellaneous Notes* Discharge Planning Note - Coleen Malone - 10/26/2024 9:08 AM EDT DISCHARGE PLANNING NOTE BLS via PTN scheduled for today 10/26/24 at 1 PM to [facility]. Confirmed in Zoll. * Plan of Care - Desiree Arciniega RN - 10/26/2024 7:49 AM EDT Problem: Pain Goal: Patient goal is pain score less than 4, able to rest, and participant in treatment plan as appropriate Description: INTERVENTIONS: 1. Encourage patient or legal abrasives sales representative to report early pain and ask for pain medicine when needed 2. Assess pain using appropriate pain scale and include the scale used when documenting 3. Administer analgesics based on type and severity of pain and evaluate response within appropriate time frame 4. Implement non-pharmacological measures as appropriate and evaluate response 5. Consider cultural and social influences on pain and pain management 6. Notify LIP if interventions ineffective or patient reports new pain 7. Monitor vital signs including pulse ox, end-tidal CO2 based on pain intervention 8. Reassess pain per policy 9. Teach patient or legal abrasives sales representative interventions for comforting Outcome: Progressing Note: Evaluation of progress towards goal: Patient rates pain as tolerable this shift. Patient encouraged to report need for pain medications as needed. Patient assessed for pain using appropriate pain scale. * Plan of Care - Rachel Ibarra RN - 10/25/2024 8:55 PM EDT Problem: Pain Goal: Patient goal is pain score less than 4, able to rest, and participant in treatment plan as appropriate Description: INTERVENTIONS: 1. Encourage patient or legal abrasives sales representative to report early pain and ask for pain medicine when needed 2. Assess pain using appropriate pain scale and include the scale used when documenting 3. Administer analgesics based on type and severity of pain and evaluate response within appropriate time frame 4. Implement non-pharmacological measures as appropriate and evaluate response 5. Consider cultural and social influences on pain and pain management 6. Notify LIP if interventions ineffective or patient reports new pain 7. Monitor vital signs including pulse ox, end-tidal CO2 based on pain intervention 8. Reassess pain per policy 9. Teach patient or legal abrasives sales representative interventions for comforting Outcome: Progressing Note: Evaluation of progress towards goal: Pt able to rate pain appropriately on scale of 1-10 Problem: Safety Goal: Patient will be injury free during hospitalization Description: INTERVENTIONS: 1. Assess patient's risk for falls and implement fall prevention plan of care per policy 2. Provide and maintain a safe environment 3. Proper use of double Identifiers 4. Medication administration using the 5 rights 5. Hand hygiene 6. Specimens are labeled at the bedside 7. Instruct patient/ patient abrasives sales representative about use of safety devices 8. Include patient/ patient abrasives sales representative in decisions related to safety Outcome: Progressing Note: Evaluation of progress towards goal: Patient remains free of falls and injury throughout shift, Call Light within reach, Bed in lowest position Problem: Infection Goal: Absence of infection during hospitalization Description: INTERVENTIONS 1. Assess and monitor for signs and symptoms of infection. 2. Monitor lab/diagnostic results. 3. Monitor all insertion sites i.e., indwelling lines, tubes and drains. 4. Monitor endotracheal (as able) and nasal secretions for changes in amount and color. 5. Administer medications as ordered. 6. Instruct and encourage patient and family to use good hand hygiene technique. 7. Identify and instruct patient/patient abrasives sales representative in use of appropriate isolation precautionsfor identified infection/symptoms. 8. Provide and discuss with patient/patient abrasives sales representative on educational MDRO sheet. 9. Encourage and monitor nutritional status daily and consult machine cell tuber if indicated. 10. Implement neutropenic guidelines as needed. Outcome: Progressing Note: Evaluation of progress towards goal: Patient is afebrile and remains free from signs of infection. Problem: Knowledge Deficit Goal: Patient/patient abrasives sales representative demonstrates understanding of disease process, treatment plan,medications, and discharge instructions Description: INTERVENTIONS 1. Complete learning assessment and assess knowledge base 2. Provide teaching at level of understanding 3. Provide teaching via preferred learning method(s) Outcome: Progressing Note: Evaluation of progress towards goal: Patient educated on plan of care, Patient verbalizes understanding Problem: Discharge Planning Goal: Discharge to post-acute care, other facility, or home with appropriate resources Description: Patient's goal is: INTERVENTIONS 1. Conduct assessment to determine patient/family and health care team treatment goals, and need for post-acute services based on payer coverage, community resources, and patient preferences, and barriers to discharge 2. Coordinate with Social work, Care Navigation, and Utilization Review to arrange appropriate level of services according to patient's needs based on patient preference and payer coverage in collaboration with the physician and health care team 3. Address psychosocial, clinical, and financial barriers to discharge as identified in assessment in conjunction with the patient/family and health care team 4. Consult appropriate ancillary services (i.e.. PT/OT/ST, etc) as needed 5. Communicate with and update the patient/family, physician, and health care team regarding progress on the discharge plan 6. Identify discharge learning needs (meds, wound care, etc). 7. Arrange for needed discharge transportation as appropriate Outcome: Progressing Note: Evaluation of progress towards goal: Patient is progressing towards discharge. Problem: Potential for Compromised Skin Integrity Goal: Skin integrity is maintained or improved Description: Patient's goal is: INTERVENTIONS 1. Perform initial skin assessment on admission and as needed 2. Turn patient every 2 hours and PRN 3. Relieve pressure to bony prominences 4. Avoid shearing 5. Keep skin clean and dry 6. Alternate a full bath with partial baths for elderly 7. Apply lotion/moisturizer on skin 8. Monitor patient's hygiene practices 9. Float heels 10. Collaborate with interdisciplinary team and initiate plans and interventions as needed Outcome: Progressing Note: Evaluation of progress towards goal: Pt will be kept clean and dry and skin will be monitoredduring this shift, pt turns self Goal: Patient's nutritional intake is adequate Description: Patient's goal is: INTERVENTIONS 1. Assess and monitor food intake and supplements, patient food preferences, nausea, vomiting, labs, oral cavity (gums, teeth, tongue, mucosa), proper denture fit, and cultural beliefs 2. Monitor for signs of hypoglycemia and hyperglycemia 3. Collaborate with interdisciplinary team and initiate plan and interventions as ordered 4. Monitor patient's weight 5. Assist patient with meals/food selection 6. Assist patient with eating 7. Allow adequate time for meals 8. Provide pleasant environment during mealtime 9. Increase social contact during mealtimes 10. Plan activities to conserve energy 11. Encourage/perform oral hygiene as appropriate 12. Encourage patient to take dietary supplement as ordered 13. Collaborate with clinical machine cell tuber 14. Include patient/ patient's abrasives sales representative in decisions related to nutrition Outcome: Progressing Note: Evaluation of progress towards goal: pt currently tolerating ordered diet (regular diet) Problem: Moderate - High Risk Fall Score Description: Fox Fall Score of =/> 25 or indicated by [facility] Assessment Goal: Patient should be free from fall Description: Interventions: 1. [place] to environment 2. Hourly rounds addressing the 4 P's (Pain, Positioning, Possessions, Potty) 3. Clear area of hazards (spills, clutter, electrical cords, unnecessary equipment) 4. Place equipment (bed & TV controls, call light, phone, urinal) within reach 5. Encourage patient to wear glasses and hearing aides as appropriate 6. Maintain bed in lowest position 7. Lock wheels on bed/wheelchair 8. Provide adequate lighting, including night light 9. Assess need for additional bedding, food/fluids, pain med's prior to sleep/routinely 10. Provide gripper slippers or personal non-skid footwear 11. Teach patient and patient abrasives sales representative to maintain environment for safety and engage in all aspects of fall prevention program 12. Remind patient to call for help before getting out of bed 13. Initiate bed/chair/exit alarms supportive devices as appropriate, (chair wedge, no-skid floor mat, raised edge mattress, hip protectors) 14. Locate patient bed assignment for optimal visualization 15. Evaluate and identify Safe Patient Handling Equipment needs 16. Provide supervision when out of bed or chair 17. Utilize gait belt as needed to assist with ambulation 18. Place adaptive equipment (cane, walker) within reach 19. Request patient abrasives sales representative bring adaptive equipment/mobility aids from home or obtain and provide as needed 20. Consult pharmacy regarding effects of med's affecting mobility, cognition, and alternatives 21. Obtain physician order for PT if risk factors associated with mobility are present 22. Obtain physician order for OT as appropriate 23. Utilize diversional activities 24. Educate patient and patient abrasives sales representative how to maintain a safe environment during visitationtimes (notify nurse prior to leaving bedside) 25. Consider appropriateness of medical or non-medical health researcher 26. Set up voiding schedule as appropriate (every 2 hours) Outcome: Progressing Note: Evaluation of progress towards goal: fall precautions maintained Problem: Cardiovascular - Adult Goal: Maintains optimal cardiac output and hemodynamic stability Description: Patient's goal is: INTERVENTIONS: 1. Monitor vital signs, rhythm, and trends 2. Monitor for bleeding, hypotension and signs of decreased cardiac output 3. Administer ordered vasoactive medications to optimize hemodynamic stability 4. Monitor arterial and/or venous puncture sites for bleeding and/or hematoma 5. Assess quality of pulses, skin color and temperature Outcome: Progressing Note: Evaluation of progress towards goal: pt remains hemodynamically stable at this time with WNL vitals Goal: Absence of cardiac dysrhythmias or at baseline Description: INTERVENTIONS: 1. Continuous cardiac monitoring, monitor vital signs, obtain 12 lead EKG as ordered 2. Monitor for therapeutic effect/ side effects and safely 3. Administer antiarrhythmic and heart rate control medications as ordered 3. Initiate emergency measures for life threatening arrhythmias 4. Monitor labs and administer replacement/adjust therapy as ordered Outcome: Progressing Note: Evaluation of progress towards goal: pt currently in afib per telemetry, which is pts baseline before admission Problem: Musculoskeletal - Adult Goal: Return mobility to safest level of function Description: Patient's goal is: INTERVENTIONS 1. Assess patient stability and activity tolerance for standing, transferring and ambulating w/ or w/o assistive devices 2. Assist with transfers and ambulation using safe patient handling equipment as needed 3. Ensure adequate protection for wounds/incisions during mobilization 4. Support and protect limb and body alignment per provider's orders 5. Obtain PT/OT consults as needed 6. Encourage independent activity per ability 7. Instruct patient/legal abrasives sales representative in ordered activity level and use of appropriate assistivedevice and precautions 8. Encourage family visitation/participation in care as much as family is able Outcome: Progressing Note: Evaluation of progress towards goal: pt up with LSO brace in place, neurosurg consulted, no surgery warranted at this time * Discharge Planning Note - Kait Meyer RN - 10/25/2024 12:06 PM EDT DISCHARGE PLANNING NOTE Per RN during discharge transition rounds, barriers to discharge are: MRI lumbar. Discharge Plan: [facility], will not require insurance authorization. 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 - KAIT MEYER RN 10/25/24 12:06 PM * Plan of Care - Jean Barbosa RN - 10/25/2024 8:36 AM EDT Problem: Pain Goal: Patient goal is pain score less than 4, able to rest, and participant in treatment plan as appropriate Description: INTERVENTIONS: 1. Encourage patient or legal abrasives sales representative to report early pain and ask for pain medicine when needed 2. Assess pain using appropriate pain scale and include the scale used when documenting 3. Administer analgesics based on type and severity of pain and evaluate response within appropriate time frame 4. Implement non-pharmacological measures as appropriate and evaluate response 5. Consider cultural and social influences on pain and pain management 6. Notify LIP if interventions ineffective or patient reports new pain 7. Monitor vital signs including pulse ox, end-tidal CO2 based on pain intervention 8. Reassess pain per policy 9. Teach patient or legal abrasives sales representative interventions for comforting Outcome: Progressing Note: Evaluation of progress towards goal: Patient verbalizes pain needs. PRN pain medication helpscontrol patient pain. Patient encouraged to call out for PRN pain medication as needed. Plan of care on going at this time. Problem: Safety Goal: Patient will be injury free during hospitalization Description: INTERVENTIONS: 1. Assess patient's risk for falls and implement fall prevention plan of care per policy 2. Provide and maintain a safe environment 3. Proper use of double Identifiers 4. Medication administration using the 5 rights 5. Hand hygiene 6. Specimens are labeled at the bedside 7. Instruct patient/ patient abrasives sales representative about use of safety devices 8. Include patient/ patient abrasives sales representative in decisions related to safety Outcome: Progressing Note: Evaluation of progress towards goal: Patient is free from falls at this time. Patient educated to use call light for assistance when needed. Plan of care ongoing at this time. Problem: Infection Goal: Absence of infection during hospitalization Description: INTERVENTIONS 1. Assess and monitor for signs and symptoms of infection. 2. Monitor lab/diagnostic results. 3. Monitor all insertion sites i.e., indwelling lines, tubes and drains. 4. Monitor endotracheal (as able) and nasal secretions for changes in amount and color. 5. Administer medications as ordered. 6. Instruct and encourage patient and family to use good hand hygiene technique. 7. Identify and instruct patient/patient abrasives sales representative in use of appropriate isolation precautionsfor identified infection/symptoms. 8. Provide and discuss with patient/patient abrasives sales representative on educational MDRO sheet. 9. Encourage and monitor nutritional status daily and consult machine cell tuber if indicated. 10. Implement neutropenic guidelines as needed. Outcome: Progressing Note: Evaluation of progress towards goal: Patient shows no signs or symptoms of infection at this time. Lab work and vitals reviewed. Patient educated on calling out for concerns. Plan of care ongoing at this time. Problem: Knowledge Deficit Goal: Patient/patient abrasives sales representative demonstrates understanding of disease process, treatment plan,medications, and discharge instructions Description: INTERVENTIONS 1. Complete learning assessment and assess knowledge base 2. Provide teaching at level of understanding 3. Provide teaching via preferred learning method(s) Outcome: Progressing Note: Evaluation of progress towards goal: Plan of care reviewed with patient and questions were addressed. Patient informed to ask question if they have any questions or concerns. Plan of care on going at this time. Problem: Discharge Planning Goal: Discharge to post-acute care, other facility, or home with appropriate resources Description: Patient's goal is: INTERVENTIONS 1. Conduct assessment to determine patient/family and health care team treatment goals, and need for post-acute services based on payer coverage, community resources, and patient preferences, and barriers to discharge 2. Coordinate with Social work, Care Navigation, and Utilization Review to arrange appropriate level of services according to patient's needs based on patient preference and payer coverage in collaboration with the physician and health care team 3. Address psychosocial, clinical, and financial barriers to discharge as identified in assessment in conjunction with the patient/family and health care team 4. Consult appropriate ancillary services (i.e.. PT/OT/ST, etc) as needed 5. Communicate with and update the patient/family, physician, and health care team regarding progress on the discharge plan 6. Identify discharge learning needs (meds, wound care, etc). 7. Arrange for needed discharge transportation as appropriate Outcome: Progressing Note: Evaluation of progress towards goal: Plan of care reviewed with patient and questions were addressed. Patient informed to ask question if they have any questions or concerns. Plan of care on going at this time. Problem: Urinary Incontinence Goal: Perineal skin integrity is maintained or improved Description: INTERVENTIONS 1. Assess genitourinary system, perineal skin, labs (urinalysis), and history of incontinence to include past management, aggravating, and alleviating factors 2. Keep skin clean and dry 3. Apply skin protectant 4. Develop skin care regimen 5. Provide privacy when changing patients incontinence device to maintain their dignity 6. Consider placing an indwelling catheter 7. Collaborate with interdisciplinary team and initiate plans and interventions as needed Outcome: Progressing Note: Evaluation of progress towards goal: Patient is free from skin breakdown/no changes in skin noted. Patient encouraged to call out with concerns. Plan of care on going at this time. * Plan of Care - Ana Maria Courtney - 10/24/2024 7:50 PM EDT Problem: Pain Goal: Patient goal is pain score less than 4, able to rest, and participant in treatment plan as appropriate Description: INTERVENTIONS: 1. Encourage patient or legal abrasives sales representative to report early pain and ask for pain medicine when needed 2. Assess pain using appropriate pain scale and include the scale used when documenting 3. Administer analgesics based on type and severity of pain and evaluate response within appropriate time frame 4. Implement non-pharmacological measures as appropriate and evaluate response 5. Consider cultural and social influences on pain and pain management 6. Notify LIP if interventions ineffective or patient reports new pain 7. Monitor vital signs including pulse ox, end-tidal CO2 based on pain intervention 8. Reassess pain per policy 9. Teach patient or legal abrasives sales representative interventions for comforting Outcome: Progressing Note: Evaluation of progress towards goal: Patient rates pain as tolerable this shift. Patient encouraged to report need for pain medications as needed. Patient assessed for pain using appropriate pain scale. Patient pain goal 0 of 10, medications available. Problem: Safety Goal: Patient will be injury free during hospitalization Description: INTERVENTIONS: 1. Assess patient's risk for falls and implement fall prevention plan of care per policy 2. Provide and maintain a safe environment 3. Proper use of double Identifiers 4. Medication administration using the 5 rights 5. Hand hygiene 6. Specimens are labeled at the bedside 7. Instruct patient/ patient abrasives sales representative about use of safety devices 8. Include patient/ patient abrasives sales representative in decisions related to safety Outcome: Progressing Note: Evaluation of progress towards goal: Safety maintained and call light within reach. No falls or injuries this shift. Bed rails up x2. Orientation reviewed. Hourly rounded maintained. Will continue to maintain safety until end of this shift. Bed alarm maintained. Personal belongings adjacent to bed on table. Call light within reach. Patient identifiers used. Problem: Infection Goal: Absence of infection during hospitalization Description: INTERVENTIONS 1. Assess and monitor for signs and symptoms of infection. 2. Monitor lab/diagnostic results. 3. Monitor all insertion sites i.e., indwelling lines, tubes and drains. 4. Monitor endotracheal (as able) and nasal secretions for changes in amount and color. 5. Administer medications as ordered. 6. Instruct and encourage patient and family to use good hand hygiene technique. 7. Identify and instruct patient/patient abrasives sales representative in use of appropriate isolation precautionsfor identified infection/symptoms. 8. Provide and discuss with patient/patient abrasives sales representative on educational MDRO sheet. 9. Encourage and monitor nutritional status daily and consult machine cell tuber if indicated. 10. Implement neutropenic guidelines as needed. Outcome: Progressing Note: Evaluation of progress towards goal: Labs and vitals monitored for S/S of infection. Problem: Knowledge Deficit Goal: Patient/patient abrasives sales representative demonstrates understanding of disease process, treatment plan,medications, and discharge instructions Description: INTERVENTIONS 1. Complete learning assessment and assess knowledge base 2. Provide teaching at level of understanding 3. Provide teaching via preferred learning method(s) Outcome: Progressing Note: Evaluation of progress towards goal: Assessment of best learning methods and knowledge base completed.Teaching provided at patient's level of understanding, and via patient's preferred learningmethods when applicable. Patient understands care and treatment plan at this time with RN availableif questions arise. Problem: Discharge Planning Goal: Discharge to post-acute care, other facility, or home with appropriate resources Description: Patient's goal is: INTERVENTIONS 1. Conduct assessment to determine patient/family and health care team treatment goals, and need for post-acute services based on payer coverage, community resources, and patient preferences, and barriers to discharge 2. Coordinate with Social work, Care Navigation, and Utilization Review to arrange appropriate level of services according to patient's needs based on patient preference and payer coverage in collaboration with the physician and health care team 3. Address psychosocial, clinical, and financial barriers to discharge as identified in assessment in conjunction with the patient/family and health care team 4. Consult appropriate ancillary services (i.e.. PT/OT/ST, etc) as needed 5. Communicate with and update the patient/family, physician, and health care team regarding progress on the discharge plan 6. Identify discharge learning needs (meds, wound care, etc). 7. Arrange for needed discharge transportation as appropriate Outcome: Progressing Note: Evaluation of progress towards goal: Discharge planning is in progress at this time. Problem: Potential for Compromised Skin Integrity Goal: Skin integrity is maintained or improved Description: Patient's goal is: INTERVENTIONS 1. Perform initial skin assessment on admission and as needed 2. Turn patient every 2 hours and PRN 3. Relieve pressure to bony prominences 4. Avoid shearing 5. Keep skin clean and dry 6. Alternate a full bath with partial baths for elderly 7. Apply lotion/moisturizer on skin 8. Monitor patient's hygiene practices 9. Float heels 10. Collaborate with interdisciplinary team and initiate plans and interventions as needed Outcome: Progressing Note: Evaluation of progress towards goal: Skin assessment performed during shift, patient turning per protocol and PRN, patient's skin is kept clean and dry. Patient positioning self regulated. Goal: Patient's nutritional intake is adequate Description: Patient's goal is: INTERVENTIONS 1. Assess and monitor food intake and supplements, patient food preferences, nausea, vomiting, labs, oral cavity (gums, teeth, tongue, mucosa), proper denture fit, and cultural beliefs 2. Monitor for signs of hypoglycemia and hyperglycemia 3. Collaborate with interdisciplinary team and initiate plan and interventions as ordered 4. Monitor patient's weight 5. Assist patient with meals/food selection 6. Assist patient with eating 7. Allow adequate time for meals 8. Provide pleasant environment during mealtime 9. Increase social contact during mealtimes 10. Plan activities to conserve energy 11. Encourage/perform oral hygiene as appropriate 12. Encourage patient to take dietary supplement as ordered 13. Collaborate with clinical machine cell tuber 14. Include patient/ patient's abrasives sales representative in decisions related to nutrition Outcome: Progressing Note: Evaluation of progress towards goal: Patient has regular diet ordered and oral intake is monitored this shift. Problem: Urinary Incontinence Goal: Perineal skin integrity is maintained or improved Description: INTERVENTIONS 1. Assess genitourinary system, perineal skin, labs (urinalysis), and history of incontinence to include past management, aggravating, and alleviating factors 2. Keep skin clean and dry 3. Apply skin protectant 4. Develop skin care regimen 5. Provide privacy when changing patients incontinence device to maintain their dignity 6. Consider placing an indwelling catheter 7. Collaborate with interdisciplinary team and initiate plans and interventions as needed Outcome: Progressing Note: Evaluation of progress towards goal: Skin assessment performed during shift, patient turning per protocol and PRN, patient's skin is kept clean and dry. Patient positioning self regulated. Problem: Moderate - High Risk Fall Score Description: Fox Fall Score of =/> 25 or indicated by [facility] Assessment Goal: Patient should be free from fall Description: Interventions: 1. [place] to environment 2. Hourly rounds addressing the 4 P's (Pain, Positioning, Possessions, Potty) 3. Clear area of hazards (spills, clutter, electrical cords, unnecessary equipment) 4. Place equipment (bed & TV controls, call light, phone, urinal) within reach 5. Encourage patient to wear glasses and hearing aides as appropriate 6. Maintain bed in lowest position 7. Lock wheels on bed/wheelchair 8. Provide adequate lighting, including night light 9. Assess need for additional bedding, food/fluids, pain med's prior to sleep/routinely 10. Provide gripper slippers or personal non-skid footwear 11. Teach patient and patient abrasives sales representative to maintain environment for safety and engage in all aspects of fall prevention program 12. Remind patient to call for help before getting out of bed 13. Initiate bed/chair/exit alarms supportive devices as appropriate, (chair wedge, no-skid floor mat, raised edge mattress, hip protectors) 14. Locate patient bed assignment for optimal visualization 15. Evaluate and identify Safe Patient Handling Equipment needs 16. Provide supervision when out of bed or chair 17. Utilize gait belt as needed to assist with ambulation 18. Place adaptive equipment (cane, walker) within reach 19. Request patient abrasives sales representative bring adaptive equipment/mobility aids from home or obtain and provide as needed 20. Consult pharmacy regarding effects of med's affecting mobility, cognition, and alternatives 21. Obtain physician order for PT if risk factors associated with mobility are present 22. Obtain physician order for OT as appropriate 23. Utilize diversional activities 24. Educate patient and patient abrasives sales representative how to maintain a safe environment during visitationtimes (notify nurse prior to leaving bedside) 25. Consider appropriateness of medical or non-medical health researcher 26. Set up voiding schedule as appropriate (every 2 hours) Outcome: Progressing Note: Evaluation of progress towards goal: Safety maintained and call light within reach. No falls or injuries this shift. Bed rails up x2. Orientation reviewed. Hourly rounded maintained. Will continue to maintain safety until end of this shift. Bed alarm maintained. Personal belongings adjacent to bed on table. Call light within reach and encouraged to use. Cosigned by Stephanie Hernandez RN at 10/24/2024 9:56 PM EDT Associated attestation - Stephanie Hernandez RN - 10/24/2024 9:56 PM EDT I attest to the care plan above. * Discharge Planning Note - Alexa Call - 10/24/2024 10:59 AM EDT DISCHARGE PLANNING NOTE Referral to [facility] in [place] (P# ;F# ) , [facility] [place], [place](P#: ; F#: ) , [facility] in [place], [place] (P# ; F#: ) * Discharge Planning Note - Kait Meyer RN - 10/24/2024 10:49 AM EDT DISCHARGE PLANNING NOTE Per RN during discharge transition rounds, barriers to discharge are: MRI Lumbar. Discharge Plan: SNF - referrals tasked to [facility] for 1.) [facility] 2.) [facility] nursing and rehab [facility] 3.) [facility] in [facility]. Will need 3 [place] stay, no insuranceauth required. 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 - KAIT MEYER RN 10/24/24 10:49 AM * Plan of Care - Jean Barbosa RN - 10/24/2024 8:58 AM EDT Problem: Pain Goal: Patient goal is pain score less than 4, able to rest, and participant in treatment plan as appropriate Description: INTERVENTIONS: 1. Encourage patient or legal abrasives sales representative to report early pain and ask for pain medicine when needed 2. Assess pain using appropriate pain scale and include the scale used when documenting 3. Administer analgesics based on type and severity of pain and evaluate response within appropriate time frame 4. Implement non-pharmacological measures as appropriate and evaluate response 5. Consider cultural and social influences on pain and pain management 6. Notify LIP if interventions ineffective or patient reports new pain 7. Monitor vital signs including pulse ox, end-tidal CO2 based on pain intervention 8. Reassess pain per policy 9. Teach patient or legal abrasives sales representative interventions for comforting Outcome: Progressing Note: Evaluation of progress towards goal: Patient verbalizes pain needs. PRN pain medication helpscontrol patient pain. Patient encouraged to call out for PRN pain medication as needed. Plan of care on going at this time. Problem: Safety Goal: Patient will be injury free during hospitalization Description: INTERVENTIONS: 1. Assess patient's risk for falls and implement fall prevention plan of care per policy 2. Provide and maintain a safe environment 3. Proper use of double Identifiers 4. Medication administration using the 5 rights 5. Hand hygiene 6. Specimens are labeled at the bedside 7. Instruct patient/ patient abrasives sales representative about use of safety devices 8. Include patient/ patient abrasives sales representative in decisions related to safety Outcome: Progressing Note: Evaluation of progress towards goal: Patient is free from falls at this time. Patient educated to use call light for assistance when needed. Plan of care ongoing at this time. Problem: Infection Goal: Absence of infection during hospitalization Description: INTERVENTIONS 1. Assess and monitor for signs and symptoms of infection. 2. Monitor lab/diagnostic results. 3. Monitor all insertion sites i.e., indwelling lines, tubes and drains. 4. Monitor endotracheal (as able) and nasal secretions for changes in amount and color. 5. Administer medications as ordered. 6. Instruct and encourage patient and family to use good hand hygiene technique. 7. Identify and instruct patient/patient abrasives sales representative in use of appropriate isolation precautionsfor identified infection/symptoms. 8. Provide and discuss with patient/patient abrasives sales representative on educational MDRO sheet. 9. Encourage and monitor nutritional status daily and consult machine cell tuber if indicated. 10. Implement neutropenic guidelines as needed. Outcome: Progressing Note: Evaluation of progress towards goal: Patient shows no signs or symptoms of infection at this time. Lab work and vitals reviewed. Patient educated on calling out for concerns. Plan of care ongoing at this time. Problem: Knowledge Deficit Goal: Patient/patient abrasives sales representative demonstrates understanding of disease process, treatment plan,medications, and discharge instructions Description: INTERVENTIONS 1. Complete learning assessment and assess knowledge base 2. Provide teaching at level of understanding 3. Provide teaching via preferred learning method(s) Outcome: Progressing Note: Evaluation of progress towards goal: Plan of care reviewed with patient and questions were addressed. Patient informed to ask question if they have any questions or concerns. Plan of care on going at this time. Problem: Discharge Planning Goal: Discharge to post-acute care, other facility, or home with appropriate resources Description: Patient's goal is: INTERVENTIONS 1. Conduct assessment to determine patient/family and health care team treatment goals, and need for post-acute services based on payer coverage, community resources, and patient preferences, and barriers to discharge 2. Coordinate with Social work, Care Navigation, and Utilization Review to arrange appropriate level of services according to patient's needs based on patient preference and payer coverage in collaboration with the physician and health care team 3. Address psychosocial, clinical, and financial barriers to discharge as identified in assessment in conjunction with the patient/family and health care team 4. Consult appropriate ancillary services (i.e.. PT/OT/ST, etc) as needed 5. Communicate with and update the patient/family, physician, and health care team regarding progress on the discharge plan 6. Identify discharge learning needs (meds, wound care, etc). 7. Arrange for needed discharge transportation as appropriate Outcome: Progressing Note: Evaluation of progress towards goal: Plan of care reviewed with patient and questions were addressed. Patient informed to ask question if they have any questions or concerns. Plan of care on going at this time. Problem: Potential for Compromised Skin Integrity Goal: Skin integrity is maintained or improved Description: Patient's goal is: INTERVENTIONS 1. Perform initial skin assessment on admission and as needed 2. Turn patient every 2 hours and PRN 3. Relieve pressure to bony prominences 4. Avoid shearing 5. Keep skin clean and dry 6. Alternate a full bath with partial baths for elderly 7. Apply lotion/moisturizer on skin 8. Monitor patient's hygiene practices 9. Float heels 10. Collaborate with interdisciplinary team and initiate plans and interventions as needed Outcome: Progressing Note: Evaluation of progress towards goal: Patient is free from skin breakdown/no changes in skin noted. Patient encouraged to call out with concerns. Plan of care on going at this time. * PT/OT/COUNTER TENDER - HESHAM Mayo/Kristin - 10/24/2024 8:32 AM EDT Occupational Therapy Evaluation Discharge Recommendations for Safe Patient Transition Post Acute Moderate Rehab Needs: Recommend moderate intensity rehab, Tolerate 1- 2 hrs of therapy 3-5 days/wk Current Impairments Informing Therapy Recommendation: Ambulation status/safety, Cognition, Fall risk, ADL status, Endurance level 6 Clicks: Daily Activity Putting on and taking off regular lower body clothing?: A lot Bathing (including washing, rinsing, drying)?: A lot Toileting, which includes using toilet, bedpan or urinal?: A lot Putting on and taking off regular upper body clothing?: A lot Taking care of personal grooming such as brushing teeth?: A little Eating meals?: A little Scoring Daily Activity Raw Score: 14 CMS G Code Modifier: CK Pt admit 10/23 from an outside hospital after a fall from standing up from his lift chair w/ pt c/o back pain. Dx: L2, L5 sup endplate compression fxs Neurosurgery consulted. No surgical intervention warranted, obtain MRI of L spine. LSO brace to be worn w/ activity, ok for activity as tolerated, PT/OT MRI pending History reviewed. No pertinent past medical history. No past surgical history on file. Per EMR h/o dementia, afib s/p Watchman Therapy Plan Need for skilled Occupational Therapy to address deficits in ADL independence and functional mobility due to a status decline resulting from decreased endurance, balance and strength s/p fall. OT Treatment/Interventions: ADL retraining, Functional transfer training, UE strengthening/ROM, Endurance training, Patient/family training, Equipment eval/education, Balance, Bed mobility, Gait training, Compensatory technique education, Functional activities OT Frequency: 4-5days/week OT Duration: length of stay Assessment Patient Assessment Therapy Problem List: Decreased ADL status, Decreased balance, Decreased cognition, Decreased endurance, Decreased mobility, Decreased safe judgement during ADL, Decreased self-care trans, Decreased UE strength Patient Response to Treatment: Tolerated evaluation without adverse reaction Mood/Affect: Appropriate for circumstances Rehab Prognosis: Good, With continued OT status post acute discharge Visit RN Communication: Yes Medical Record Reviewed: Yes OT Type of Visit: Evaluation Precautions Activity: early mobility guideline:yes, pass Equipment: RW, gait belt, Marta stedy Telemetry/Warp Trucker: Yes Oxygen Order : spo2 90% or higher with 0-5L Oxygen Used: room air Other: high fall risk- bed/chair alarms d/t dementia w/ confusion. L2/L5 compression fxs with LSO brace when out of bed Subjective Occupational Therapy Comments: pt's daughter reports staff at outside hospital prior to transfer to[facility], allowed pt to get up to go the bathroom and pt fell in the bathroom Pain Assessment Pain Assessment: 0-10 Pain Score: 7 Pain Location: Back Pain Orientation: Lower Pain Intervention(s): Repositioned, Ambulation/increased activity, Distraction (RN Jean notified and pt given Tylenol during eval; LSO brace donned) Response to Interventions: Pain unchanged Home Living Type of Home: House Home Layout: Two level, Able to live on main level with bedroom/bathroom (basement and 2nd floor blocked off) Bathroom Shower/Tub: Tub/shower unit Bathroom Toilet: Raised Bathroom Equipment: Shower chair, Grab bars in shower, Grab bars around toilet Home Equipment: Rolling walker, Quad cane, Lift chair (traditional flat bed, cameras in the home) Other : pt not using AD prior to admission Prior Function Lives With: Alone Receives Help From: Family (5 children- 3 local. Pt's in a group home) Level of Mobility: Needs assistance with ADLs or functional transfers or gait Transfers: Independent Mobility: Independent Toileting: Independent Bath: Min assist (assist from son w/ showers) Dressing: (intermittent min assist) Grooming: Independent Feeding: Independent Homemaking Assistance: Needs assistance Other: multiple family members come and go during the day/ evening hours. pt has assistance w/ meals, laundry, house work, medications, showers and getting into bed Vocational: Retired ADL / IADL Where Assessed: Supine, bed, Edge of bed, Chair, At toilet (standing at the sink in marta stedy) Eating Assistance: Setup Grooming Assistance: Min assist Grooming Deficit: Wash/dry hands (standing in marta stedy at the sink) Bathing/Showering Assistance: Max assist, Setup (seated) Toilet/Commode Assistance: Mod assist Toilet/Commode Deficit: Clothing management up, Clothing management down, Perineal hygiene (pt attempting seema care seated on toilet but limited by pain, min assist needed for thoroughness. pt needing assist to gather toilet paper from the toilet paper rascon) UE Dressing Assistance: Mod assist, Setup (seated; max assist don LSO brace) LE Dressing Assistance: Mod assist, Setup (seated) Footwear Assistance: Max assist Footwear Deficit: R sock, L sock Other: increased assist w/ ADLs d/t decreased processing, pain and decreased sitting/standing balance Home Management - IADL Other: increased assist w/ ADLs d/t decreased processing, pain and decreased sitting/standing balance Hearing / Speech / Vision Hearing: Within Functional Limits Speech: Within Functional Limits (pt's converstaions tangential at times) Current Vision: Wears glasses all the time Cognition Overall Cognitive Status: Exceptions to Within Functional Limits Arousal/Alertness: Appropriate responses to stimuli Attention Span: Attends with cues to redirect Memory: Decreased short term memory, Decreased immediate memory, Decreased recall of biographical information, Decreased recall of recent events Orientation Level: Oriented to person, Disoriented to month, Disoriented to situation, Disoriented to time Following Commands: Follows one step commands with repetition, Follows one step commands with increased time Safety Judgment: Decreased awareness of need for assistance, Decreased awareness of need for safety Awareness of Errors: Assistance required to identify errors made, Assistance required to correct errors made Insight of Deficits: Decreased awareness of deficits Problem Solving: Reduced Interfering Components: Working memory, Processing speed, Attention - sustained Sensation Overall Sensation Status: (pt denies numbness/tingling) Bed Mobility Rolling: Min assist, Right, Verbal cues, Tactile cues (use of bed rail. HOB grossly 10 degrees, pt not tolerating laying flat) Supine to Sit: Mod assist, Right, Verbal cues, Tactile cues (from sidelying w/ use of bed rail and HOB grossly 10 degrees) Sit to Supine: (up in chair w/ call light and chiar alarm on) Other: ed pt on log roll technique w/ bed mobility d/t L2/L5 compression fxs Transfers Sit to Stand: Mod assist, Verbal cues, Tactile cues (pt stood from EOB w/ RW in front of him and requiring mod assist. pt stood w/ use of marta stedy 2x requiring min assist.) Stand to Sit: Mod assist, Verbal cues, Tactile cues (completed 3x) Bed to Chair: Mod assist (bed to chair w/ use of RW) Toilet Transfers: Mod assist, Verbal cues, Tactile cues (w/ use of marta stedy) Other: pt into bathroom and back to chair this date via marta stedy d/t pain, unsteadiness w/ short distance transition from bed to chair while using RW. pt requiring verbal/tactile cues for safe transfers w/ both use of RW and marta stedy Gait Base of Support: Narrow Pattern: Decreased awa, R Decreased foot clearance, L Decreased foot clearance Gait Assistance: Mod assist Assistive Device: Rolling walker Gait Distance: 2' bed to chair Limiting Factors to Gait: Decreased safety, Pain 2 Turns: Not attempted d/t safety concerns Balance Balance Evaluation: Exceptions to Functional Limits Sitting Balance: Static: Fair Sitting Balance: Dynamic: Fair, Poor (fair- to poor) Standing Balance: Static: Poor Standing Balance: Dynamic: Poor Other: pt sat EOB w/ min assist overall for balance d/t intermittent posterior leaning. Pt stood and ambulated bed to chair w/ use of RW and mod assist overall d/t L lateral lean, loss of balance. Utilized marta ziyaddy for use of the restroom RUE Assessment: Exceptions to WFL (generalized weakness) LUE Assessment: Exceptions to WFL (generalized weakness) Activity Tolerance Endurance: Tolerates >30 minutes activity with rest breaks Plan Occupational Therapy Care Plan Occupational Therapy Care Plan (Active) Template: OT - Occupational Therapy Problem: Activity Tolerance Dates: Start: 10/24/24 Disciplines: OT Goal: Tolerate > 30 minutes of activity WITHOUT rest breaks Dates: Start: 10/24/24 Expected End: 11/14/24 Description: Goal Description: Disciplines: OT Problem: Bathing LB Dates: Start: 10/24/24 Disciplines: OT Goal: Patient will perform bathing LB with Minimum Assist Dates: Start: 10/24/24 Expected End: 11/14/24 Description: Goal Description: Disciplines: OT Problem: Bathing UB Dates: Start: 10/24/24 Disciplines: OT Goal: Patient will perform bathing UB with Minimum Assist Dates: Start: 10/24/24 Expected End: 11/14/24 Description: Goal Description: Disciplines: OT Problem: Bed Mobility Dates: Start: 10/24/24 Disciplines: OT Goal: Patient will perform bed mobility with Supervision Dates: Start: 10/24/24 Expected End: 11/14/24 Description: Goal Description: Disciplines: OT Problem: Dressing LB Dates: Start: 10/24/24 Disciplines: OT Goal: Patient will perform dressing LB with Supervision Dates: Start: 10/24/24 Expected End: 11/14/24 Description: Goal Description: Disciplines: OT Problem: Dressing UB Dates: Start: 10/24/24 Disciplines: OT Goal: Patient will perform dressing UB with Supervision Dates: Start: 10/24/24 Expected End: 11/14/24 Description: Goal Description: Disciplines: OT Problem: Functional Mobility Dates: Start: 10/24/24 Disciplines: OT Goal: Patient will perform functional mobility with Supervision Dates: Start: 10/24/24 Expected End: 11/14/24 Description: Goal Description: Disciplines: OT Problem: Grooming Dates: Start: 10/24/24 Disciplines: OT Goal: Patient will perform grooming with Set-Up Dates: Start: 10/24/24 Expected End: 11/14/24 Description: Goal Description: Disciplines: OT Problem: Sitting Balance Dates: Start: 10/24/24 Disciplines: OT Goal: Improve balance to good Dates: Start: 10/24/24 Expected End: 11/14/24 Description: Pt will demo good sitting balance 100% of the time. Disciplines: OT Problem: Standing Balance Dates: Start: 10/24/24 Disciplines: OT Goal: Improve balance to good Dates: Start: 10/24/24 Expected End: 11/14/24 Description: Pt will demo good standing balance w/ use of AD for 6-10 minutes Disciplines: OT Problem: Strength Dates: Start: 10/24/24 Disciplines: OT Goal: Improve strength Dates: Start: 10/24/24 Expected End: 11/14/24 Description: Of extremity/ location:pt will demo good understanding, tolerance for B UE HEP To facilitate: Disciplines: OT Problem: Toilet Transfers Dates: Start: 10/24/24 Disciplines: OT Goal: Patient will perform toilet transfers with Supervision Dates: Start: 10/24/24 Expected End: 11/14/24 Description: Goal Description: Disciplines: OT Problem: Toileting Dates: Start: 10/24/24 Disciplines: OT Goal: Patient will perform toileting with Supervision Dates: Start: 10/24/24 Expected End: 11/14/24 Description: Goal Description: Disciplines: OT Problem: Transfers Dates: Start: 10/24/24 Disciplines: OT Goal: Patient will perform transfers with Supervision Dates: Start: 10/24/24 Expected End: 11/14/24 Description: Goal Description: Disciplines: OT Occupational Therapy Care Plan (Resolved) There are no resolved problems. Principal Problem: Lumbar compression fracture ([facility]) * PT/OT/COUNTER TENDER - Federico Carter, PT - 10/24/2024 8:28 AM EDT Physical Therapy Evaluation Discharge Recommendations for Safe Patient Transition Post Acute Moderate Rehab Needs: Recommend moderate intensity rehab Current Impairments Informing Therapy Recommendation: Ambulation status/safety, Cognition, Fall risk, ADL status, Endurance level, Caregiver needs/level of support 6 Clicks: Basic Mobility Turning from your back to your side while in a flat bed without using bed rails?: A little Moving from lying on your back to sitting on side of flat bed without using bed rails?: A lot Moving to and from bed to a chair (including w/c)?: A lot Standing up from a chair using your arms (e.g. w/c or bedside chair)?: A little To walk in hospital room?: A lot Climbing 3-5 steps with a railing?: Total Scoring 6 Clicks: Basic Mobility Raw Score: 13 [facility] G Code Modifier: CK Therapy Plan Need for skilled Physical Therapy to address deficits in functional mobility due to a status decline resulting from admission 10/23 from OSH s/p fall when standing from lift chair. Per family report, patient fell at OSH when attempting to stand from toilet alone. Patient c/o acute onset back pain. Dx: L2, L5 sup endplate compression fxs NS consulted. No surgical intervention warranted, obtain MRI of L spine. LSO brace to be worn w/ activity, ok for activity as tolerated, PT/OT PT Treatment/Interventions: ADL retraining, Functional transfer training, UE strengthening/ROM, LE strengthening/ROM, Endurance training, Cognitive reorientation, Patient/family training, Equipment eval/education, Balance, Bed mobility, Gait training, Functional activities, Neuromuscular reeducation PT Frequency: 4-5days/week PT Duration: length of stay History reviewed. No pertinent past medical history. No past surgical history on file. Assessment Patient Assessment Therapy Problem List: Decreased ADL status, Decreased balance, Decreased endurance, Decreased high-level ADLs, Decreased mobility, Decreased LE strength Patient Response to Treatment: Tolerated evaluation without adverse reaction Mood/Affect: Appropriate for circumstances Rehab Prognosis: Good, With continued PT status post acute discharge Visit RN Communication: Yes Medical Record Reviewed: Yes PT Type of Visit: Evaluation Precautions Activity: early mobility / pass Equipment: RW, gait belt, MARTA stedy, LSO brace Weight Bearing Status: no restrictions, LSO brace with activity Oxygen Used: room air Other: high fall risk, confusion, bed / chair alarm, L2 / L5 compression fracture with LSO brace Pain Assessment Pain Assessment: 0-10 Pain Score: 7 Observed Behavior: Grimacing Pain Location: Back Pain Orientation: Lower Pain Intervention(s): Repositioned, Distraction, Ambulation/increased activity Response to Interventions: Pain unchanged, Quiet Pain 2 Observed Behavior: Grimacing Home Living Type of Home: House Home Layout: Two level Stairs in Home: patient stays on main floor. Second story and basement access blocked. Bathroom Shower/Tub: Tub/shower unit Bathroom Toilet: Raised Bathroom Equipment: Grab bars in shower, Shower chair, Hand-held shower, Grab bars around toilet Home Equipment: Rolling walker, Quad cane, Lift chair Other : Pt denies use of AD at baseline. Prior Function Lives With: Alone (Spouse in ECF) Receives Help From: Family (3 local supportive children, other family stops by daily) Level of Mobility: Needs assistance with ADLs or functional transfers or gait Bath: Min assist Dressing: Min assist Homemaking Assistance: Needs assistance Meal Prep: Total assist Laundry: Total assist Yard Work: Total assist Driving: Total assist Shopping: Total assist Vocational: Retired ADL / IADL Hand Dominance: Right Hearing / Speech / Vision Hearing: Hard of hearing/hearing concerns Speech: Within Functional Limits Current Vision: Wears glasses all the time Cognition Overall Cognitive Status: Exceptions to Within Functional Limits Orientation Level: Oriented to person, Disoriented to place, Disoriented to time, Disoriented to age, Disoriented to month, Disoriented to situation Following Commands: Follows one step commands with increased time, Follows one step commands with repetition Awareness of Errors: Decreased awareness of errors Insight of Deficits: Decreased awareness of deficits Problem Solving: Nonfunctional Interfering Components: Processing speed, Motor planning, Attention - sustained Sensation Overall Sensation Status: (denies numbness / tingling) Bed Mobility Rolling: Min assist, Right Supine to Sit: Mod assist Sit to Supine: (remained up in chair with call light in reach) Other: HOB elevated Transfers Sit to Stand: Mod assist Stand to Sit: Min assist Other: Pt with mod assist to stand from elevated EOB to walker. Patient with R lateral lean and required increased time to stabilize in standing with cues to increase CLAUDIA. Gait Base of Support: Narrow Pattern: Decreased awa, R Decreased foot clearance, L Decreased foot clearance Gait Assistance: Mod assist Assistive Device: Rolling walker Gait Distance: 3 ft to chair Other: Patient with shuffle awa, unsteady with minor LOB. 2-person assist with frequent cues and redirection to ambulate to chair. Balance Sitting Balance: Static: Fair Sitting Balance: Dynamic: Poor Standing Balance: Static: Fair ((-)) Standing Balance: Dynamic: Poor Other: standing balance with bilat UE support RLE Assessment: (functional weakness secondary to pain) LLE Assessment: (functional weakness secondary to pain) Activity Tolerance Endurance: Tolerates <30 minutes activity WITHOUT vital sign changes Plan Physical Therapy Care Plan Physical Therapy Care Plan (Active) Template: PT - Physical Therapy Problem: Activity Tolerance Dates: Start: 10/24/24 Disciplines: PT Goal: Tolerate > 30 minutes of activity WITH rest breaks Dates: Start: 10/24/24 Expected End: 11/14/24 Description: Goal Description: Patient to perform functional range / strength exercises to improve functional strength, balance and activity tolerance for improved independence and safety with mobility. Disciplines: PT Problem: Bed Mobility Dates: Start: 10/24/24 Disciplines: PT Goal: Patient will perform bed mobility with Stand By Assist Dates: Start: 10/24/24 Expected End: 11/14/24 Description: Goal Description: Disciplines: PT Problem: Gait Dates: Start: 10/24/24 Disciplines: PT Goal: Patient will perform gait with Contact Guard Dates: Start: 10/24/24 Expected End: 11/14/24 Description: With__RW__,__100__feet Goal Description: Disciplines: PT Problem: Sitting Balance Dates: Start: 10/24/24 Disciplines: PT Goal: Improve balance to good Dates: Start: 10/24/24 Expected End: 11/14/24 Description: Static Dynamic Disciplines: PT Problem: Standing Balance Dates: Start: 10/24/24 Disciplines: PT Goal: Improve balance to good Dates: Start: 10/24/24 Expected End: 11/14/24 Description: With bilat UE support Disciplines: PT Problem: Transfers Dates: Start: 10/24/24 Disciplines: PT Goal: Patient will perform transfers with Contact Guard Dates: Start: 10/24/24 Expected End: 11/14/24 Description: Goal Description: Patient to perform mobility with good safety awareness. Disciplines: PT Physical Therapy Care Plan (Resolved) There are no resolved problems. Principal Problem: Lumbar compression fracture ([facility]) * Plan of Care - Ana Maria Courtney - 10/23/2024 7:44 PM EDT Problem: Pain Goal: Patient goal is pain score less than 4, able to rest, and participant in treatment plan as appropriate Description: INTERVENTIONS: 1. Encourage patient or legal abrasives sales representative to report early pain and ask for pain medicine when needed 2. Assess pain using appropriate pain scale and include the scale used when documenting 3. Administer analgesics based on type and severity of pain and evaluate response within appropriate time frame 4. Implement non-pharmacological measures as appropriate and evaluate response 5. Consider cultural and social influences on pain and pain management 6. Notify LIP if interventions ineffective or patient reports new pain 7. Monitor vital signs including pulse ox, end-tidal CO2 based on pain intervention 8. Reassess pain per policy 9. Teach patient or legal abrasives sales representative interventions for comforting Outcome: Progressing Note: Evaluation of progress towards goal: Patient rates pain as tolerable this shift. Patient encouraged to report need for pain medications as needed. Patient assessed for pain using appropriate pain scale. Patient pain goal 0 of 10, medications available. Problem: Safety Goal: Patient will be injury free during hospitalization Description: INTERVENTIONS: 1. Assess patient's risk for falls and implement fall prevention plan of care per policy 2. Provide and maintain a safe environment 3. Proper use of double Identifiers 4. Medication administration using the 5 rights 5. Hand hygiene 6. Specimens are labeled at the bedside 7. Instruct patient/ patient abrasives sales representative about use of safety devices 8. Include patient/ patient abrasives sales representative in decisions related to safety Outcome: Progressing Note: Evaluation of progress towards goal: Safety maintained and call light within reach. No falls or injuries this shift. Bed rails up x2. Orientation reviewed. Hourly rounded maintained. Will continue to maintain safety until end of this shift. Bed alarm maintained. Personal belongings adjacent to bed on table. Call light within reach. Patient identifiers used. Problem: Infection Goal: Absence of infection during hospitalization Description: INTERVENTIONS 1. Assess and monitor for signs and symptoms of infection. 2. Monitor lab/diagnostic results. 3. Monitor all insertion sites i.e., indwelling lines, tubes and drains. 4. Monitor endotracheal (as able) and nasal secretions for changes in amount and color. 5. Administer medications as ordered. 6. Instruct and encourage patient and family to use good hand hygiene technique. 7. Identify and instruct patient/patient abrasives sales representative in use of appropriate isolation precautionsfor identified infection/symptoms. 8. Provide and discuss with patient/patient abrasives sales representative on educational MDRO sheet. 9. Encourage and monitor nutritional status daily and consult machine cell tuber if indicated. 10. Implement neutropenic guidelines as needed. Outcome: Progressing Note: Evaluation of progress towards goal: Labs and vitals monitored for S/S of infection. Problem: Knowledge Deficit Goal: Patient/patient abrasives sales representative demonstrates understanding of disease process, treatment plan,medications, and discharge instructions Description: INTERVENTIONS 1. Complete learning assessment and assess knowledge base 2. Provide teaching at level of understanding 3. Provide teaching via preferred learning method(s) Outcome: Progressing Note: Evaluation of progress towards goal: Assessment of best learning methods and knowledge base completed.Teaching provided at patient's level of understanding, and via patient's preferred learningmethods when applicable. Patient understands care and treatment plan at this time with RN availableif questions arise. Problem: Discharge Planning Goal: Discharge to post-acute care, other facility, or home with appropriate resources Description: Patient's goal is: INTERVENTIONS 1. Conduct assessment to determine patient/family and health care team treatment goals, and need for post-acute services based on payer coverage, community resources, and patient preferences, and barriers to discharge 2. Coordinate with Social work, Care Navigation, and Utilization Review to arrange appropriate level of services according to patient's needs based on patient preference and payer coverage in collaboration with the physician and health care team 3. Address psychosocial, clinical, and financial barriers to discharge as identified in assessment in conjunction with the patient/family and health care team 4. Consult appropriate ancillary services (i.e.. PT/OT/ST, etc) as needed 5. Communicate with and update the patient/family, physician, and health care team regarding progress on the discharge plan 6. Identify discharge learning needs (meds, wound care, etc). 7. Arrange for needed discharge transportation as appropriate Outcome: Progressing Note: Evaluation of progress towards goal: Discharge planning is in progress at this time. Problem: Potential for Compromised Skin Integrity Goal: Skin integrity is maintained or improved Description: Patient's goal is: INTERVENTIONS 1. Perform initial skin assessment on admission and as needed 2. Turn patient every 2 hours and PRN 3. Relieve pressure to bony prominences 4. Avoid shearing 5. Keep skin clean and dry 6. Alternate a full bath with partial baths for elderly 7. Apply lotion/moisturizer on skin 8. Monitor patient's hygiene practices 9. Float heels 10. Collaborate with interdisciplinary team and initiate plans and interventions as needed Outcome: Progressing Note: Evaluation of progress towards goal: Skin assessment performed during shift, patient turning per protocol and PRN, patient's skin is kept clean and dry. Patient positioning self regulated. Goal: Patient's nutritional intake is adequate Description: Patient's goal is: INTERVENTIONS 1. Assess and monitor food intake and supplements, patient food preferences, nausea, vomiting, labs, oral cavity (gums, teeth, tongue, mucosa), proper denture fit, and cultural beliefs 2. Monitor for signs of hypoglycemia and hyperglycemia 3. Collaborate with interdisciplinary team and initiate plan and interventions as ordered 4. Monitor patient's weight 5. Assist patient with meals/food selection 6. Assist patient with eating 7. Allow adequate time for meals 8. Provide pleasant environment during mealtime 9. Increase social contact during mealtimes 10. Plan activities to conserve energy 11. Encourage/perform oral hygiene as appropriate 12. Encourage patient to take dietary supplement as ordered 13. Collaborate with clinical machine cell tuber 14. Include patient/ patient's abrasives sales representative in decisions related to nutrition Outcome: Progressing Note: Evaluation of progress towards goal: Patient has regular diet ordered and oral intake is monitored this shift. Problem: Urinary Incontinence Goal: Perineal skin integrity is maintained or improved Description: INTERVENTIONS 1. Assess genitourinary system, perineal skin, labs (urinalysis), and history of incontinence to include past management, aggravating, and alleviating factors 2. Keep skin clean and dry 3. Apply skin protectant 4. Develop skin care regimen 5. Provide privacy when changing patients incontinence device to maintain their dignity 6. Consider placing an indwelling catheter 7. Collaborate with interdisciplinary team and initiate plans and interventions as needed Outcome: Progressing Note: Evaluation of progress towards goal: Skin assessment performed during shift, patient turning per protocol and PRN, patient's skin is kept clean and dry. Patient positioning self regulated. Problem: Moderate - High Risk Fall Score Description: Fox Fall Score of =/> 25 or indicated by [facility] Assessment Goal: Patient should be free from fall Description: Interventions: 1. [place] to environment 2. Hourly rounds addressing the 4 P's (Pain, Positioning, Possessions, Potty) 3. Clear area of hazards (spills, clutter, electrical cords, unnecessary equipment) 4. Place equipment (bed & TV controls, call light, phone, urinal) within reach 5. Encourage patient to wear glasses and hearing aides as appropriate 6. Maintain bed in lowest position 7. Lock wheels on bed/wheelchair 8. Provide adequate lighting, including night light 9. Assess need for additional bedding, food/fluids, pain med's prior to sleep/routinely 10. Provide gripper slippers or personal non-skid footwear 11. Teach patient and patient abrasives sales representative to maintain environment for safety and engage in all aspects of fall prevention program 12. Remind patient to call for help before getting out of bed 13. Initiate bed/chair/exit alarms supportive devices as appropriate, (chair wedge, no-skid floor mat, raised edge mattress, hip protectors) 14. Locate patient bed assignment for optimal visualization 15. Evaluate and identify Safe Patient Handling Equipment needs 16. Provide supervision when out of bed or chair 17. Utilize gait belt as needed to assist with ambulation 18. Place adaptive equipment (cane, walker) within reach 19. Request patient abrasives sales representative bring adaptive equipment/mobility aids from home or obtain and provide as needed 20. Consult pharmacy regarding effects of med's affecting mobility, cognition, and alternatives 21. Obtain physician order for PT if risk factors associated with mobility are present 22. Obtain physician order for OT as appropriate 23. Utilize diversional activities 24. Educate patient and patient abrasives sales representative how to maintain a safe environment during visitationtimes (notify nurse prior to leaving bedside) 25. Consider appropriateness of medical or non-medical health researcher 26. Set up voiding schedule as appropriate (every 2 hours) Outcome: Progressing Note: Evaluation of progress towards goal: Safety maintained and call light within reach. No falls or injuries this shift. Bed rails up x2. Orientation reviewed. Hourly rounded maintained. Will continue to maintain safety until end of this shift. Bed alarm maintained. Personal belongings adjacent to bed on table. Call light within reach and encouraged to use. Cosigned by Rachel Ibarra RN at 10/23/2024 9:42 PM EDT Associated attestation - Rachel Ibarra RN - 10/23/2024 9:42 PM EDT * Discharge Planning Note - MALENA Garvey - 10/23/2024 2:22 PM EDT Images from the original note were not included. DISCHARGE PLANNING NOTE Kick Boxer met with patient and daughter Elena, introduced self, and explained role. Patient educated onsafe discharge plan. Pt admitted 10/23/2024 with Lumbar compression fracture (CMS-HCC) [S32.000A] per chart review. Consults: neurosurgery History reviewed. No pertinent past medical history. Prior to admission patient was living by himself, with daily assistance from his six children with ADLs and IADLs. Patient has access to a cane and walker but does not use them. Patient uses a showerchair and grab bars. Patient denies need for transportation/ food/ prescription medication assistance resources. PCP: CEDRIC CARR MD The patient receives support from his children and extended family. Drug use: denies Smoking: denies ETOH Use: deneis Readmission risk score is 9 per Epic review. Current discharge plan: Services Requested: Services Requested Patient expects to be discharged to:: SNF Does the patient wish to have family/friend/caregiver involved in their discharge planning?: Yes Does the patient plan to return home to a community setting?: No, patient to discharge to facility-based provider. See Discharge Disposition Discharge Disposition: SNF Does the patient need discharge transportation arranged?: Yes Patient Goals: Patient/Caregiver Goals Patient/Caregiver Goals: Residential Care Skilled Nuring Care: Skilled Care (Short Term) Goals: Goals safe discharge (pt-stated) Evaluation of progress towards goal: SNF list provided. Will continue to follow as plan of care develops. Please feel free to reach out for any discharge planning questions. - MALENA GARVEY 10/23/24 2:22 PM * PT/OT/COUNTER TENDER - Angela Cordon PT - 10/23/2024 8:40 AM EDT Physical Therapy Reason For Medical Deferral: Provider input needed, Activity limitations Provider Input Needed: Consults pending (Neurosurgery consult pending.) Activity Limitations: (Per trauma H&P, bedrest until pt seen by neurosurgery.) * Plan of Care - Manuela Ram RN - 10/23/2024 7:12 AM EDT Problem: Pain Goal: Patient goal is pain score less than 4, able to rest, and participant in treatment plan as appropriate Description: INTERVENTIONS: 1. Encourage patient or legal abrasives sales representative to report early pain and ask for pain medicine when needed 2. Assess pain using appropriate pain scale and include the scale used when documenting 3. Administer analgesics based on type and severity of pain and evaluate response within appropriate time frame 4. Implement non-pharmacological measures as appropriate and evaluate response 5. Consider cultural and social influences on pain and pain management 6. Notify LIP if interventions ineffective or patient reports new pain 7. Monitor vital signs including pulse ox, end-tidal CO2 based on pain intervention 8. Reassess pain per policy 9. Teach patient or legal abrasives sales representative interventions for comforting Outcome: Progressing Note: Evaluation of progress towards goal: Patient rates pain as tolerable this shift. Patient encouraged to report need for pain medications as needed. Patient assessed for pain using appropriate pain scale. Problem: Safety Goal: Patient will be injury free during hospitalization Description: INTERVENTIONS: 1. Assess patient's risk for falls and implement fall prevention plan of care per policy 2. Provide and maintain a safe environment 3. Proper use of double Identifiers 4. Medication administration using the 5 rights 5. Hand hygiene 6. Specimens are labeled at the bedside 7. Instruct patient/ patient abrasives sales representative about use of safety devices 8. Include patient/ patient abrasives sales representative in decisions related to safety Outcome: Progressing Note: Evaluation of progress towards goal: Safety maintained and call light within reach. No falls or injuries this shift. Bed rails up x2. Orientation reviewed. Hourly rounded maintained. Will continue to maintain safety until end of this shift Problem: Infection Goal: Absence of infection during hospitalization Description: INTERVENTIONS 1. Assess and monitor for signs and symptoms of infection. 2. Monitor lab/diagnostic results. 3. Monitor all insertion sites i.e., indwelling lines, tubes and drains. 4. Monitor endotracheal (as able) and nasal secretions for changes in amount and color. 5. Administer medications as ordered. 6. Instruct and encourage patient and family to use good hand hygiene technique. 7. Identify and instruct patient/patient abrasives sales representative in use of appropriate isolation precautionsfor identified infection/symptoms. 8. Provide and discuss with patient/patient abrasives sales representative on educational MDRO sheet. 9. Encourage and monitor nutritional status daily and consult machine cell tuber if indicated. 10. Implement neutropenic guidelines as needed. Outcome: Progressing Note: Evaluation of progress towards goal: No active infections Problem: Knowledge Deficit Goal: Patient/patient abrasives sales representative demonstrates understanding of disease process, treatment plan,medications, and discharge instructions Description: INTERVENTIONS 1. Complete learning assessment and assess knowledge base 2. Provide teaching at level of understanding 3. Provide teaching via preferred learning method(s) Outcome: Progressing Note: Evaluation of progress towards goal: Assessment of best learning methods and knowledge base completed.Teaching provided at patient's level of understanding, and via patient's preferred learningmethods when applicable. Problem: Discharge Planning Goal: Discharge to post-acute care, other facility, or home with appropriate resources Description: Patient's goal is: INTERVENTIONS 1. Conduct assessment to determine patient/family and health care team treatment goals, and need for post-acute services based on payer coverage, community resources, and patient preferences, and barriers to discharge 2. Coordinate with Social work, Care Navigation, and Utilization Review to arrange appropriate level of services according to patient's needs based on patient preference and payer coverage in collaboration with the physician and health care team 3. Address psychosocial, clinical, and financial barriers to discharge as identified in assessment in conjunction with the patient/family and health care team 4. Consult appropriate ancillary services (i.e.. PT/OT/ST, etc) as needed 5. Communicate with and update the patient/family, physician, and health care team regarding progress on the discharge plan 6. Identify discharge learning needs (meds, wound care, etc). 7. Arrange for needed discharge transportation as appropriate Outcome: Progressing Note: Evaluation of progress towards goal: Discharge planning is in progress at this time. Problem: Potential for Compromised Skin Integrity Goal: Skin integrity is maintained or improved Description: Patient's goal is: INTERVENTIONS 1. Perform initial skin assessment on admission and as needed 2. Turn patient every 2 hours and PRN 3. Relieve pressure to bony prominences 4. Avoid shearing 5. Keep skin clean and dry 6. Alternate a full bath with partial baths for elderly 7. Apply lotion/moisturizer on skin 8. Monitor patient's hygiene practices 9. Float heels 10. Collaborate with interdisciplinary team and initiate plans and interventions as needed Outcome: Progressing Note: Evaluation of progress towards goal: Skin assessment performed during shift, patient turning per protocol and PRN, patient's skin is kept clean and dry. Goal: Patient's nutritional intake is adequate Description: Patient's goal is: INTERVENTIONS 1. Assess and monitor food intake and supplements, patient food preferences, nausea, vomiting, labs, oral cavity (gums, teeth, tongue, mucosa), proper denture fit, and cultural beliefs 2. Monitor for signs of hypoglycemia and hyperglycemia 3. Collaborate with interdisciplinary team and initiate plan and interventions as ordered 4. Monitor patient's weight 5. Assist patient with meals/food selection 6. Assist patient with eating 7. Allow adequate time for meals 8. Provide pleasant environment during mealtime 9. Increase social contact during mealtimes 10. Plan activities to conserve energy 11. Encourage/perform oral hygiene as appropriate 12. Encourage patient to take dietary supplement as ordered 13. Collaborate with clinical machine cell tuber 14. Include patient/ patient's abrasives sales representative in decisions related to nutrition Outcome: Progressing Note: Evaluation of progress towards goal: Nutritional intake is being assessed and monitored. Patient is currently tolerating their ordered diet. Problem: Urinary Incontinence Goal: Perineal skin integrity is maintained or improved Description: INTERVENTIONS 1. Assess genitourinary system, perineal skin, labs (urinalysis), and history of incontinence to include past management, aggravating, and alleviating factors 2. Keep skin clean and dry 3. Apply skin protectant 4. Develop skin care regimen 5. Provide privacy when changing patients incontinence device to maintain their dignity 6. Consider placing an indwelling catheter 7. Collaborate with interdisciplinary team and initiate plans and interventions as needed Outcome: Progressing Note: Evaluation of progress towards goal: system and perineal skin assessed this shift. Skin has been kept clean and dry, skin care regimen has been performed on patient. Problem: Moderate - High Risk Fall Score Description: Fox Fall Score of =/> 25 or indicated by [facility] Assessment Goal: Patient should be free from fall Description: Interventions: 1. [place] to environment 2. Hourly rounds addressing the 4 P's (Pain, Positioning, Possessions, Potty) 3. Clear area of hazards (spills, clutter, electrical cords, unnecessary equipment) 4. Place equipment (bed & TV controls, call light, phone, urinal) within reach 5. Encourage patient to wear glasses and hearing aides as appropriate 6. Maintain bed in lowest position 7. Lock wheels on bed/wheelchair 8. Provide adequate lighting, including night light 9. Assess need for additional bedding, food/fluids, pain med's prior to sleep/routinely 10. Provide gripper slippers or personal non-skid footwear 11. Teach patient and patient abrasives sales representative to maintain environment for safety and engage in all aspects of fall prevention program 12. Remind patient to call for help before getting out of bed 13. Initiate bed/chair/exit alarms supportive devices as appropriate, (chair wedge, no-skid floor mat, raised edge mattress, hip protectors) 14. Locate patient bed assignment for optimal visualization 15. Evaluate and identify Safe Patient Handling Equipment needs 16. Provide supervision when out of bed or chair 17. Utilize gait belt as needed to assist with ambulation 18. Place adaptive equipment (cane, walker) within reach 19. Request patient abrasives sales representative bring adaptive equipment/mobility aids from home or obtain and provide as needed 20. Consult pharmacy regarding effects of med's affecting mobility, cognition, and alternatives 21. Obtain physician order for PT if risk factors associated with mobility are present 22. Obtain physician order for OT as appropriate 23. Utilize diversional activities 24. Educate patient and patient abrasives sales representative how to maintain a safe environment during visitationtimes (notify nurse prior to leaving bedside) 25. Consider appropriateness of medical or non-medical health researcher 26. Set up voiding schedule as appropriate (every 2 hours) Outcome: Progressing Note: Evaluation of progress towards goal: Safety maintained and call light within reach. No falls or injuries this shift. Bed rails up x2. Orientation reviewed. Hourly rounded maintained. Will continue to maintain safety until end of this shift * PT/OT/COUNTER TENDER - HESHAM Mayo/Kristin - 10/23/2024 6:37 AM EDT Occupational Therapy OT Type of Visit: Medical deferral Reason For Medical Deferral: Activity limitations, Provider input needed Provider Input Needed: Consults pending (neurosurgery) Activity Limitations: (per trauma H&P bedrest until pt seen by neurosurgery. consult pending) * Plan of Care - Rachel Ibarra RN - 10/23/2024 6:24 AM EDT Problem: Pain Goal: Patient goal is pain score less than 4, able to rest, and participant in treatment plan as appropriate Description: INTERVENTIONS: 1. Encourage patient or legal abrasives sales representative to report early pain and ask for pain medicine when needed 2. Assess pain using appropriate pain scale and include the scale used when documenting 3. Administer analgesics based on type and severity of pain and evaluate response within appropriate time frame 4. Implement non-pharmacological measures as appropriate and evaluate response 5. Consider cultural and social influences on pain and pain management 6. Notify LIP if interventions ineffective or patient reports new pain 7. Monitor vital signs including pulse ox, end-tidal CO2 based on pain intervention 8. Reassess pain per policy 9. Teach patient or legal abrasives sales representative interventions for comforting Outcome: Progressing Note: Evaluation of progress towards goal: Pt able to rate pain appropriately on scale of 1-10 [facility] * Plan of Care - Desiree Arciniega RN - 10/26/2024 7:49 AM EDT Problem: Pain Goal: Patient goal is pain score less than 4, able to rest, and participant in treatment plan as appropriate Description: INTERVENTIONS: 1. Encourage patient or legal abrasives sales representative to report early pain and ask for pain medicine when needed 2. Assess pain using appropriate pain scale and include the scale used when documenting 3. Administer analgesics based on type and severity of pain and evaluate response within appropriate time frame 4. Implement non-pharmacological measures as appropriate and evaluate response 5. Consider cultural and social influences on pain and pain management 6. Notify LIP if interventions ineffective or patient reports new pain 7. Monitor vital signs including pulse ox, end-tidal CO2 based on pain intervention 8. Reassess pain per policy 9. Teach patient or legal abrasives sales representative interventions for comforting Outcome: Progressing Note: Evaluation of progress towards goal: Patient rates pain as tolerable this shift. Patient encouraged to report need for pain medications as needed. Patient assessed for pain using appropriate pain scale. [facility]05[facility] Hospital course Narrative* Nishant Madeleine Kendrick, [employer]ER-ENAMEL BUFFER - 10/26/2024 5:52 AM EDT [facility] TRAUMA SURGERY-DISCHARGE SUMMARY DISCHARGE NOTE / SUMMARY Patient ID: Nette Hammond : 1940 Acct: [id number] Patient's PCP: CEDRIC CARR MD Admit Date: 10/23/2024 Discharge Date: 10/26/2024 Admitting Physician: Jewel Vail MD Consults: Neurosurgery (NSx) Discharge Diagnoses/Chief Complaint: Fall Primary Problem Lumbar compression fracture ([facility]) Patient Active Problem List Diagnosis Date Noted Lumbar compression fracture (CMS-HCC) 10/23/2024 History reviewed. No pertinent past medical history. HOSPITAL COURSE SUMMARY: Nette Hammond is an 84 y.o. male with PMH significant for dementia, HTN, HLD, AFib s/p watchman and on ASA81 who fell yesterday afternoon. At baseline, patient has issues with short term memory anddoes not remember falling. He lives alone but, per daughter, is heavily monitored with cameras and help comes over often. Yesterday, daughter saw on one of the home cameras that patient stood up fromhis lift chair, lost his balance, and fell on his buttocks. She does not believe that he hit his head nor lost consciousness. He was able to get up on his own. When his daughter came over for dinner later that evening, he was complaining of back pain with movement, which is what prompted her to check the home cameras. Patient was then [facility] where imaging was performed and identified L2 and L5 vertebral body fractures. He was then transferred to [facility] for trauma evaluation anddefinitive management. On exam, patient is pleasantly confused and making jokes. Per daughter, he does become confused when he wakes up and when he is out of his environment. At this time, patient denies back pain and numbness/ tingling in extremities. Mechanical fall -TraumaGram -CT Head -CT Cervical spine -CXR -PXR -CT L Spine -TraumaLabs -CMP -CBC -Coags, PT/INR -Amylase -Lipase -Ethanol -Urine Drug screen -Urinalysis -PT/OT assessed for SNF placement, family agreeable L2, L5 superior endplate compression fractures - Consult TORIEx, Irasema; No acute neurosurgical intervention warranted - Okay for diet and activity as tolerated. - Okay for chemical DVT ppx. - LSO brace ordered. To be worn with activity. Does not need to be worn while in bed -MRI lumbar spine pending AFib s/p watchman - currently on ASA81 mg daily - INR 3.2, recheck 1.0 10/23 The patient was seen and examined on day of discharge and this discharge summary is in conjunction with any daily progress note from day of discharge. Pulse: 67 Resp: 16 BP: 150/88 Temp: 36.1 C (97 F) All home medications restarted at time of discharge. Treatments: * No surgery found * Discharged Condition: Good DISCHARGE INSTRUCTIONS: Discharge Medications: Your medication list START taking these medications Instructions Last Dose Given Next Dose Due methocarbamoL 500 mg tablet Commonly known as: ROBAXIN Take 1 tablet (500 mg total) by mouth in the morning and 1 tablet (500 mg total) at noon and 1 tablet (500 mg total) in the evening and 1 tablet (500 mg total) before bedtime. oxyCODONE 5 mg immediate release tablet Commonly known as: ROXICODONE Take 0.5 tablets (2.5 mg total) by mouth every 4 (four) hours as needed for pain for up to 7 days. Max Daily Amount: 15 mg sennosides-docusate sodium 8.6-50 mg Commonly known as: SENOKOT-S Take 2 tablets by mouth nightly. CONTINUE taking these medications Instructions Last Dose Given Next Dose Due acetaminophen 500 mg tablet Commonly known as: TYLENOL EXTRA STRENGTH ALPRAZolam XR 1 mg 24 hr tablet Commonly known as: XANAX XR amLODIPine 5 mg tablet Commonly known as: NORVASC aspirin 81 mg cetirizine 5 mg tablet Commonly known as: ZyrTEC escitalopram 20 mg tablet Commonly known as: LEXAPRO hydrOXYzine 25 mg tablet Commonly known as: ATARAX losartan 50 mg tablet Commonly known as: COZAAR Where to Get Your Medications These medications were sent to [email or web address] [address] [address] methocarbamoL 500 mg tablet oxyCODONE 5 mg immediate release tablet sennosides-docusate sodium 8.6-50 mg Additional Discharge Instructions: Scheduled Outpatient Follow Up: Future Appointments Date Time Provider Department Center 12/11/2024 1:00 PM Cha Villalpando MD [facility] Follow-up Information CEDRIC CARR MD . Specialties: Family Medicine, Allergy & Immunology Contact information: [address] [place] [id number] Cha Villalpando MD Follow up. Specialty: Neurosurgery Why: After MRI Contact information: [address] [facility] [address] [facility] [id number] Scheduled Appointments Dec 11, 2024 1:00 PM (Arrive by 12:45 PM) ESTABLISHED PATIENT with Cha Villalpando MD [facility] ([facility] [address] [facility] [id number] At the time of your visit please be aware of the following COVID-19 information: If you develop a new cough, fever, or shortness of breath, please call before your appointment. Please plan to arrive at least 15 minutes earlier than your appointment time as screening and registration may take longer than anticipated. Completing eCheck-in to pre-register and pay any prepayments due will allow you to have an expedited arrival process for your visit. Please be aware that the [facility] facility you are visiting may require you to wear a mask. It will not be unusual if you find that masking is required in some locations and not required in other locations. The determination is made based on the amount of COVID transmission and infection rate in the community where the facility is located. Please be prepared to wear a mask if the facility you are visiting requires masking. Masks are available upon entry into the facility; however, it is best to bring your own mask and put it on before entering the facility. If wearing a mask is not possible due to an underlying health condition, please work with your care team on an alternate plan before your scheduled appointment. Time spent: 40 SANDY LAND 10/26/24 5:53 AM SANDY Land 10/26/24 0721 [facility] Plan of care note * Plan of Care - Rachel Ibarra RN - 10/25/2024 8:55 PM EDT Problem: Pain Goal: Patient goal is pain score less than 4, able to rest, and participant in treatment plan as appropriate Description: INTERVENTIONS: 1. Encourage patient or legal abrasives sales representative to report early pain and ask for pain medicine when needed 2. Assess pain using appropriate pain scale and include the scale used when documenting 3. Administer analgesics based on type and severity of pain and evaluate response within appropriate time frame 4. Implement non-pharmacological measures as appropriate and evaluate response 5. Consider cultural and social influences on pain and pain management 6. Notify LIP if interventions ineffective or patient reports new pain 7. Monitor vital signs including pulse ox, end-tidal CO2 based on pain intervention 8. Reassess pain per policy 9. Teach patient or legal abrasives sales representative interventions for comforting Outcome: Progressing Note: Evaluation of progress towards goal: Pt able to rate pain appropriately on scale of 1-10 Problem: Safety Goal: Patient will be injury free during hospitalization Description: INTERVENTIONS: 1. Assess patient's risk for falls and implement fall prevention plan of care per policy 2. Provide and maintain a safe environment 3. Proper use of double Identifiers 4. Medication administration using the 5 rights 5. Hand hygiene 6. Specimens are labeled at the bedside 7. Instruct patient/ patient abrasives sales representative about use of safety devices 8. Include patient/ patient abrasives sales representative in decisions related to safety Outcome: Progressing Note: Evaluation of progress towards goal: Patient remains free of falls and injury throughout shift, Call Light within reach, Bed in lowest position Problem: Infection Goal: Absence of infection during hospitalization Description: INTERVENTIONS 1. Assess and monitor for signs and symptoms of infection. 2. Monitor lab/diagnostic results. 3. Monitor all insertion sites i.e., indwelling lines, tubes and drains. 4. Monitor endotracheal (as able) and nasal secretions for changes in amount and color. 5. Administer medications as ordered. 6. Instruct and encourage patient and family to use good hand hygiene technique. 7. Identify and instruct patient/patient abrasives sales representative in use of appropriate isolation precautionsfor identified infection/symptoms. 8. Provide and discuss with patient/patient abrasives sales representative on educational MDRO sheet. 9. Encourage and monitor nutritional status daily and consult machine cell tuber if indicated. 10. Implement neutropenic guidelines as needed. Outcome: Progressing Note: Evaluation of progress towards goal: Patient is afebrile and remains free from signs of infection. Problem: Knowledge Deficit Goal: Patient/patient abrasives sales representative demonstrates understanding of disease process, treatment plan,medications, and discharge instructions Description: INTERVENTIONS 1. Complete learning assessment and assess knowledge base 2. Provide teaching at level of understanding 3. Provide teaching via preferred learning method(s) Outcome: Progressing Note: Evaluation of progress towards goal: Patient educated on plan of care, Patient verbalizes understanding Problem: Discharge Planning Goal: Discharge to post-acute care, other facility, or home with appropriate resources Description: Patient's goal is: INTERVENTIONS 1. Conduct assessment to determine patient/family and health care team treatment goals, and need for post-acute services based on payer coverage, community resources, and patient preferences, and barriers to discharge 2. Coordinate with Social work, Care Navigation, and Utilization Review to arrange appropriate level of services according to patient's needs based on patient preference and payer coverage in collaboration with the physician and health care team 3. Address psychosocial, clinical, and financial barriers to discharge as identified in assessment in conjunction with the patient/family and health care team 4. Consult appropriate ancillary services (i.e.. PT/OT/ST, etc) as needed 5. Communicate with and update the patient/family, physician, and health care team regarding progress on the discharge plan 6. Identify discharge learning needs (meds, wound care, etc). 7. Arrange for needed discharge transportation as appropriate Outcome: Progressing Note: Evaluation of progress towards goal: Patient is progressing towards discharge. Problem: Potential for Compromised Skin Integrity Goal: Skin integrity is maintained or improved Description: Patient's goal is: INTERVENTIONS 1. Perform initial skin assessment on admission and as needed 2. Turn patient every 2 hours and PRN 3. Relieve pressure to bony prominences 4. Avoid shearing 5. Keep skin clean and dry 6. Alternate a full bath with partial baths for elderly 7. Apply lotion/moisturizer on skin 8. Monitor patient's hygiene practices 9. Float heels 10. Collaborate with interdisciplinary team and initiate plans and interventions as needed Outcome: Progressing Note: Evaluation of progress towards goal: Pt will be kept clean and dry and skin will be monitoredduring this shift, pt turns self Goal: Patient's nutritional intake is adequate Description: Patient's goal is: INTERVENTIONS 1. Assess and monitor food intake and supplements, patient food preferences, nausea, vomiting, labs, oral cavity (gums, teeth, tongue, mucosa), proper denture fit, and cultural beliefs 2. Monitor for signs of hypoglycemia and hyperglycemia 3. Collaborate with interdisciplinary team and initiate plan and interventions as ordered 4. Monitor patient's weight 5. Assist patient with meals/food selection 6. Assist patient with eating 7. Allow adequate time for meals 8. Provide pleasant environment during mealtime 9. Increase social contact during mealtimes 10. Plan activities to conserve energy 11. Encourage/perform oral hygiene as appropriate 12. Encourage patient to take dietary supplement as ordered 13. Collaborate with clinical machine cell tuber 14. Include patient/ patient's abrasives sales representative in decisions related to nutrition Outcome: Progressing Note: Evaluation of progress towards goal: pt currently tolerating ordered diet (regular diet) Problem: Moderate - High Risk Fall Score Description: Fox Fall Score of =/> 25 or indicated by [facility] Assessment Goal: Patient should be free from fall Description: Interventions: 1. [place] to environment 2. Hourly rounds addressing the 4 P's (Pain, Positioning, Possessions, Potty) 3. Clear area of hazards (spills, clutter, electrical cords, unnecessary equipment) 4. Place equipment (bed & TV controls, call light, phone, urinal) within reach 5. Encourage patient to wear glasses and hearing aides as appropriate 6. Maintain bed in lowest position 7. Lock wheels on bed/wheelchair 8. Provide adequate lighting, including night light 9. Assess need for additional bedding, food/fluids, pain med's prior to sleep/routinely 10. Provide gripper slippers or personal non-skid footwear 11. Teach patient and patient abrasives sales representative to maintain environment for safety and engage in all aspects of fall prevention program 12. Remind patient to call for help before getting out of bed 13. Initiate bed/chair/exit alarms supportive devices as appropriate, (chair wedge, no-skid floor mat, raised edge mattress, hip protectors) 14. Locate patient bed assignment for optimal visualization 15. Evaluate and identify Safe Patient Handling Equipment needs 16. Provide supervision when out of bed or chair 17. Utilize gait belt as needed to assist with ambulation 18. Place adaptive equipment (cane, walker) within reach 19. Request patient abrasives sales representative bring adaptive equipment/mobility aids from home or obtain and provide as needed 20. Consult pharmacy regarding effects of med's affecting mobility, cognition, and alternatives 21. Obtain physician order for PT if risk factors associated with mobility are present 22. Obtain physician order for OT as appropriate 23. Utilize diversional activities 24. Educate patient and patient abrasives sales representative how to maintain a safe environment during visitationtimes (notify nurse prior to leaving bedside) 25. Consider appropriateness of medical or non-medical health researcher 26. Set up voiding schedule as appropriate (every 2 hours) Outcome: Progressing Note: Evaluation of progress towards goal: fall precautions maintained Problem: Cardiovascular - Adult Goal: Maintains optimal cardiac output and hemodynamic stability Description: Patient's goal is: INTERVENTIONS: 1. Monitor vital signs, rhythm, and trends 2. Monitor for bleeding, hypotension and signs of decreased cardiac output 3. Administer ordered vasoactive medications to optimize hemodynamic stability 4. Monitor arterial and/or venous puncture sites for bleeding and/or hematoma 5. Assess quality of pulses, skin color and temperature Outcome: Progressing Note: Evaluation of progress towards goal: pt remains hemodynamically stable at this time with WNL vitals Goal: Absence of cardiac dysrhythmias or at baseline Description: INTERVENTIONS: 1. Continuous cardiac monitoring, monitor vital signs, obtain 12 lead EKG as ordered 2. Monitor for therapeutic effect/ side effects and safely 3. Administer antiarrhythmic and heart rate control medications as ordered 3. Initiate emergency measures for life threatening arrhythmias 4. Monitor labs and administer replacement/adjust therapy as ordered Outcome: Progressing Note: Evaluation of progress towards goal: pt currently in afib per telemetry, which is pts baseline before admission Problem: Musculoskeletal - Adult Goal: Return mobility to safest level of function Description: Patient's goal is: INTERVENTIONS 1. Assess patient stability and activity tolerance for standing, transferring and ambulating w/ or w/o assistive devices 2. Assist with transfers and ambulation using safe patient handling equipment as needed 3. Ensure adequate protection for wounds/incisions during mobilization 4. Support and protect limb and body alignment per provider's orders 5. Obtain PT/OT consults as needed 6. Encourage independent activity per ability 7. Instruct patient/legal abrasives sales representative in ordered activity level and use of appropriate assistivedevice and precautions 8. Encourage family visitation/participation in care as much as family is able Outcome: Progressing Note: Evaluation of progress towards goal: pt up with LSO brace in place, neurosurg consulted, no surgery warranted at this time [facility]05-16[facility] History of Present illness Narrative* Ana Luisa Clement PA-C - 10/25/2024 1:16 PM EDT Images from the original note were not included. [facility] [address] [place] [address], [address] [place] [address] * NEUROSURGERY DAILY PROGRESS NOTE DATE:10/25/2024 PATIENT'S NAME: Nette Hammond PATIENT'S PATIENT'S : 1940 EVENTS LAST 24 HOURS / SUBJECTIVE No acute events overnight. Patient reports some back pain, but is overall controlled. Awaiting rehab. PHYSICAL EXAM Temp: [36.3 C (97.4 F)-36.9 C (98.4 F)] 36.4 C (97.6 F) Pulse: [67-86] 81 Resp: [16-19] 18 BP: (118-151)/(82-108) 118/82 SpO2: [92 %-96 %] 96 % O2 Device: None (Room air) No acute distress Awake and Alert Respirations even and unlabored Abdomen soft and nontender Regular heart rate and rhythm PERRL BUE/BLE strength and sensation intact LABORATORY DATA Results from last 7 days Lab Units 10/25/24 0620 10/24/24 0452 10/23/24 0234 SODIUM mmol/L 138 139 139 POTASSIUM mmol/L 4.1 4.1 4.8 CREATININE mg/dL 1.13 1.17 1.10 GLUCOSE mg/dL 86 95 101* CALCIUM mg/dL 9.1 9.0 9.9 APTT sec -- -- 29 INR -- -- 1.0 WBC x10E9/L 7.1 7.4 8.6 HEMATOCRIT % 40.1 41.4 46.8 HEMOGLOBIN g/dL 13.9 14.2 15.8 PLATELETS X10E9/L 148* 137* 162 IMAGING None ASSESSMENT 84 year old male s/p fall and found to have L2 and L5 compression fractures. PLAN - patient doing well. Will plan to continue conservative measures with brace and complete MRI lumbar spine outpatient. Discussed with patient and son, and they are agreeable. - MRI lumbar spine pending - LSO brace To be worn with activity. Does not need to be worn while in bed. - Okay for diet and activity as tolerated. - Okay for PT/OT - PRN pain control - Okay for chemical DVT ppx. Okay to resume ASA - Remainder of care per Trauma - Patient stable for discharge to rehab from a NS standpoint. Please call if further questions arise. Patient to follow up in 4-[address] Ana Luisa Clement PA-C Neurosurgery [facility] [place] Chat preferred Patient Touch 10/25/24 1:16 PM To find out which SIMIN is on for the day please go to ON-Call Finder in [place] or [employer] and use log in coComment and search for PTH Neurosurgery Ana Luisa Clement PA-C 10/25/24 2018 * Hermilo Mcdermott MD - 10/25/2024 7:16 AM EDT TRAUMA SURGERY - PROGRESS NOTE Patient: eNtte Hammond Date of : 1940 AGE 84 y.o. SEX male Assessment / Plan Nette Hammond 84 y.o. male Mechanism: Mechanical fall Tertiary Examination: Tertiary examination, completed 10/23: Pt palpated from clavicles to fingertips and hips to feet bilaterally, no additional areas of pain were noted to indicate missed injury. Injuries/Traumatic issues: 1.Mechanical fall -TraumaGram -CT Head -CT Cervical spine -CXR -PXR -CT L Spine -TraumaLabs -CMP -CBC -Coags, PT/INR -Amylase -Lipase -Ethanol -Urine Drug screen -Urinalysis 2. Acute post traumatic pain - multimodal pain regimen ordered on admission - reassess for adequate pain control daily and change regimen as appropriate 3. L2, L5 superior endplate compression fractures - Consult Irasema B[place]; No acute neurosurgical intervention warranted - Okay for diet and activity as tolerated. - Okay for chemical DVT ppx. - LSO brace ordered. To be worn with activity. Does not need to be worn while in bed -MRI lumbar spine pending 4. AFib s/p watchman - currently on ASA81 mg daily - INR 3.2, recheck 1.0 10/23 Comorbidities/Medical issues: Neuro- dementia, depression/anxiety - takes SSRI and xanax at least once daily per daughter - resume home meds once reconciled Pulm- Cardio- AFib s/p watchman, currently on ASA81 mg daily - held GI- - Heme- ID- MSK- Endo- Lytes- Lines and Tubes: PIV Nutrition: Reg Prophylaxis: EPCs, Lovenox Disposition: - PT/OT recommendation: moderate intensity rehab - PM&R recommendation: Pending - Discharge plan: Pending lumbar spine MRI - Barriers to discharge: Lumbar spine MRI - Level of care to be continued: Stepdown Medical Decision Making: High Subjective No acute events overnight. Patient remains pleasant and mildly confused, consistent with baseline per daughter. Reports tolerable back pain only with movement. Denies numbness, tingling, or weakness in the legs. No bowel or bladder symptoms. Tolerating diet. Objective Vital signs: Vitals: 10/24/24 1613 10/24/24 1915 10/24/24 2300 10/25/24 0305 BP: (!) 125/96 130/88 (!) 151/95 148/89 Pulse: 85 86 70 67 Resp: 16 17 Temp: 36.3 C (97.4 F) 36.7 C (98.1 F) 36.8 C (98.2 F) 36.9 C (98.4 F) TempSrc: Oral Oral Oral Oral SpO2: 92% 93% 94% 94% Weight: Height: Temperature Range Last 24 Hours : Temp: 36.9 C (98.4 F) Temp Av.7 C (98.1 F) Min: 36.3 C (97.4F) Max: 36.9 C (98.4 F) Admit Weight: 85.6 kg (188 lb 11.4 oz) Body mass index is 29.56 kg/m . Last Weights: Wt Readings from Last 3 Encounters: 10/23/24 85.6 kg (188 lb 11.4 oz) I/O's:No intake or output data in the 24 hours ending 10/25/24 0717 Physical Exam Physical Exam Physical Exam Airway: Intact Breathing: Intact Circulation: Intact GCS: 15 Eye: Verbal Motor 1 Does not open 1 No sounds 1 No movement 2 Opens to pain2 Incomprehensible sounds2 Extension w/pain 3 Opens to voice 3 Incoherent words 3 Flex w/ pain 4 Spontaneous4 Confused / disoriented4 Withdraw from pain 5 Oriented 5 Localizes to painful stimuli 6 Obeys commands General: No distress HEENT: Atraumatic EOMI PERRL 3mm, CN II-XII: grossly intact No Malocclusion No drainage from ears bilaterally Battles sign Absent Nares patent Dentition intact Neck: Trachea Midline Non Tender to palpation No pain with Flex / Ext / Lat Flex / Rotation, Axial Load & distraction Chest: No Chest wall tenderness, No Crepitus, No Bruising Lungs:Good air movement B, CTA B, No Ronchi, No Wheeze Unlabored, breathing room air Heart: Heart tones S1/S2, No Murmur noted, Regular Abd: Soft, No guarding, No rigidity No Bruising Non Tender RUQ / LUQ / RLQ / LLQ Pelvis: Iliac crest-Non tender to compression Symphysis pubis- Non tender to compression Penis / Scrotum / Peroneal: No wounds noted Rectum: Not performed Back: T Spine- non tender to palpation L Spine- non tender to palpation; pain with sitting up No wounds / ecchymosis Extremities: RUE: 5/5 strength LUE: 5/5 strength RLE: 5/5 strength LLE: 5/5 strength Pulses 2+ x 4 Intact to light touch No calf/thigh tenderness Neuro: Alert, pleasant, appropriate. Oriented to person, disoriented to time/place. Lower extremitystrength 5/5 bilaterally. Sensation intact to light touch. Able to wiggle toes and push against resistance. No focal deficits noted. Labs Results from last 7 days Lab Units 10/25/2461910/24/242 10/23/24 0234 WBC x10E9/L 7.1 7.4 8.6 HEMOGLOBIN g/dL 13.9 14.2 15.8 HEMATOCRIT % 40.1 41.4 46.8 PLATELETS X10E9/L 148* 137* 162 MONOS PCT AUTO % 6.3 4.8 3.6 EOS PCT AUTO % 7.3 7.3 1.3 Results from last 7 days Lab Units 10/25/24 0610/24/24 0452 10/23/24 0234 SODIUM mmol/L 138 139 139 POTASSIUM mmol/L 4.1 4.1 4.8 CO2 mmol/L 26 28 28 BUN mg/dL 22 24 25 CREATININE mg/dL 1.13 1.17 1.10 GLUCOSE mg/dL 86 95 101* Results from last 7 days Lab Units 10/23/24 0234 INR 1.0 PROTIME sec 10.9 APTT sec 29 Labs obtained during the last 24 hrs. independently reviewed. Recent Studies No results found. Radiographic studies obtained during the last 24 hrs independently reviewed for acute traumatic injuries. Allergies Allergies Allergen Reactions Sulfa (Sulfonamide Antibiotics) Rash and Anaphylaxis Other Reaction(s): Hives Lisinopril Other (See Comments) Other Reaction(s): angiodemia Current Medications SCHEDULED PRN dextrose dextrose 50 % in water (D50W) glucagon (human recombinant) ondansetron oxyCODONE OR oxyCODONE sodium chloride Current Infusions Alexander Azul Agustina, MS3 10/25/24 7:17 AM Hermilo Mcdermott MD Orthopaedic Surgery, Resident 10/25/24 7:17 AM Trauma can be reached via Patient Touch Pager: [phone] Cosigned by Oli Morales MD at 10/25/2024 3:20 PM EDT Associated attestation - Oli Morales MD - 10/25/2024 3:20 PM EDT ATTENDING NOTE I saw the patient. I Performed or participated and was physically present during the critical/gamez portions of the service. I was directly involved in the management and treatment plan of the patient.I reviewed the resident's note. Electronically signed by Oli Morales MD [facility] General Surgeons Robotic Surgery Trauma, Acute Care Surgery and Surgical Critical Care * Hermilo Mcdermott MD - 10/24/2024 8:35 AM EDT TRAUMA SURGERY - PROGRESS NOTE Patient: Nette Hammond Date of : 1940 AGE 84 y.o. SEX male Assessment / Plan Nette Hammond 84 y.o. male Mechanism: Mechanical fall Tertiary Examination: Tertiary examination, completed 10/23: Pt palpated from clavicles to fingertips and hips to feet bilaterally, no additional areas of pain were noted to indicate missed injury. Injuries/Traumatic issues: 1.Mechanical fall -TraumaGram -CT Head -CT Cervical spine -CXR -PXR -CT L Spine -TraumaLabs -CMP -CBC -Coags, PT/INR -Amylase -Lipase -Ethanol -Urine Drug screen -Urinalysis 2. Acute post traumatic pain - multimodal pain regimen ordered on admission - reassess for adequate pain control daily and change regimen as appropriate 3. L2, L5 superior endplate compression fractures - Consult TORIExIrasema; No acute neurosurgical intervention warranted - Okay for diet and activity as tolerated. - Okay for chemical DVT ppx. - LSO brace ordered. To be worn with activity. Does not need to be worn while in bed -MRI lumbar spine pending 4. AFib s/p watchman - currently on ASA81 mg daily - INR 3.2, recheck today Comorbidities/Medical issues: Neuro- dementia, depression/anxiety - takes SSRI and xanax at least once daily per daughter - resume home meds once reconciled Pulm- Cardio- AFib s/p watchman, currently on ASA81 mg daily - held GI- - Heme- ID- MSK- Endo- Lytes- Lines and Tubes: PIV Nutrition: Reg Prophylaxis: EPCs, Lovenox Disposition: - PT/OT recommendation: moderate intensity rehab - PM&R recommendation: Pending - Discharge plan: Pending lumbar spine MRI - Barriers to discharge: Lumbar spine MRI - Level of care to be continued: Stepdown Medical Decision Making: High Subjective NAEON. Patient is pleasant and conversational but mildly confused, consistent with baseline per daughter. Denies back pain at rest, but discomfort noted with movement such as sitting up. Denies numbness, tingling, or weakness in the legs. Denies any urinary or bowel issues. Objective Vital signs: Vitals: 10/23/24 1651 10/23/24 1914 10/23/24 2310 10/24/24 0305 BP: (!) 137/106 122/86 (!) 139/95 (!) 152/93 Pulse: 76 76 74 81 Resp: 13 15 16 14 Temp: 36.9 C (98.5 F) 36.7 C (98.1 F) 36.8 C (98.2 F) 36.9 C (98.5 F) TempSrc: Oral Oral Oral Oral SpO2: 95% 94% 92% 94% Weight: Height: Temperature Range Last 24 Hours : Temp: 36.9 C (98.5 F) Temp Av.8 C (98.2 F) Min: 36.4 C (97.5F) Max: 36.9 C (98.5 F) Admit Weight: 85.6 kg (188 lb 11.4 oz) Body mass index is 29.56 kg/m . Last Weights: Wt Readings from Last 3 Encounters: 10/23/24 85.6 kg (188 lb 11.4 oz) I/O's:No intake or output data in the 24 hours ending 10/24/24 0835 Physical Exam Physical Exam Physical Exam Airway: Intact Breathing: Intact Circulation: Intact GCS: 15 Eye: Verbal Motor 1 Does not open 1 No sounds 1 No movement 2 Opens to pain2 Incomprehensible sounds2 Extension w/pain 3 Opens to voice 3 Incoherent words 3 Flex w/ pain 4 Spontaneous4 Confused / disoriented4 Withdraw from pain 5 Oriented 5 Localizes to painful stimuli 6 Obeys commands General: No distress HEENT: Atraumatic EOMI PERRL 3mm, CN II-XII: grossly intact No Malocclusion No drainage from ears bilaterally Battles sign Absent Nares patent Dentition intact Neck: Trachea Midline Non Tender to palpation No pain with Flex / Ext / Lat Flex / Rotation, Axial Load & distraction Chest: No Chest wall tenderness, No Crepitus, No Bruising Lungs:Good air movement B, CTA B, No Ronchi, No Wheeze Unlabored, breathing room air Heart: Heart tones S1/S2, No Murmur noted, Regular Abd: Soft, No guarding, No rigidity No Bruising Non Tender RUQ / LUQ / RLQ / LLQ Pelvis: Iliac crest-Non tender to compression Symphysis pubis- Non tender to compression Penis / Scrotum / Peroneal: No wounds noted Rectum: Not performed Back: T Spine- non tender to palpation L Spine- non tender to palpation; pain with sitting up No wounds / ecchymosis Extremities: RUE: 5/5 strength LUE: 5/5 strength RLE: 5/5 strength LLE: 5/5 strength Pulses 2+ x 4 Intact to light touch No calf/thigh tenderness Neuro: Alert, pleasant, appropriate. Oriented to person, disoriented to time/place. Lower extremitystrength 5/5 bilaterally. Sensation intact to light touch. Able to wiggle toes and push against resistance. No focal deficits noted. Labs Results from last 7 days Lab Units 10/24/24 0452 10/23/24 0234 WBC x10E9/L 7.4 8.6 HEMOGLOBIN g/dL 14.2 15.8 HEMATOCRIT % 41.4 46.8 PLATELETS X10E9/L 137* 162 MONOS PCT AUTO % 4.8 3.6 EOS PCT AUTO % 7.3 1.3 Results from last 7 days Lab Units 10/24/24 0452 10/23/24 0234 SODIUM mmol/L 139 139 POTASSIUM mmol/L 4.1 4.8 CO2 mmol/L 28 28 BUN mg/dL 24 25 CREATININE mg/dL 1.17 1.10 GLUCOSE mg/dL 95 101* Results from last 7 days Lab Units 10/23/24 0234 INR 1.0 PROTIME sec 10.9 APTT sec 29 Labs obtained during the last 24 hrs. independently reviewed. Recent Studies No results found. Radiographic studies obtained during the last 24 hrs independently reviewed for acute traumatic injuries. Allergies Allergies Allergen Reactions Sulfa (Sulfonamide Antibiotics) Rash and Anaphylaxis Other Reaction(s): Hives Lisinopril Other (See Comments) Other Reaction(s): angiodemia Current Medications SCHEDULED PRN dextrose dextrose 50 % in water (D50W) glucagon (human recombinant) ondansetron oxyCODONE OR oxyCODONE sodium chloride Current Infusions Alexander Azul Agustina, MS3 10/24/24 8:35 AM Hermilo Mcdermott MD Orthopaedic Surgery, Resident 10/24/24 8:35 AM Trauma can be reached via Patient Touch Pager: [phone] Cosigned by Jewel Vail MD at 10/24/2024 2:00 PM EDT Associated attestation - Jewel Vail MD - 10/24/2024 2:00 PM EDT Attending Attestation: I saw the patient. I participated and was physically present during the critical/gamez portions of the service. I was directly involved in the management and treatment plan of the patient. I reviewed the resident's note. * Hermilo Mcdermott MD - 10/23/2024 8:46 AM EDT TRAUMA SURGERY - PROGRESS NOTE Patient: Nette Hammond Date of : 1940 AGE 84 y.o. SEX male Assessment / Plan Nette Hammond 84 y.o. male Mechanism: Mechanical fall Tertiary Examination: Tertiary examination, completed 10/23: Pt palpated from clavicles to fingertips and hips to feet bilaterally, no additional areas of pain were noted to indicate missed injury. Injuries/Traumatic issues: 1.Mechanical fall -TraumaGram -CT Head -CT Cervical spine -CXR -PXR -CT L Spine -TraumaLabs -CMP -CBC -Coags, PT/INR -Amylase -Lipase -Ethanol -Urine Drug screen -Urinalysis 2. Acute post traumatic pain - multimodal pain regimen ordered on admission - reassess for adequate pain control daily and change regimen as appropriate 3. L2, L5 superior endplate compression fractures - Consult NSx, Irasema; No acute neurosurgical intervention warranted - Okay for diet and activity as tolerated. - Okay for chemical DVT ppx. - LSO brace ordered. To be worn with activity. Does not need to be worn while in bed 4. AFib s/p watchman - currently on ASA81 mg daily - INR 3.2, recheck today Comorbidities/Medical issues: Neuro- dementia, depression/anxiety - takes SSRI and xanax at least once daily per daughter - resume home meds once reconciled Pulm- Cardio- AFib s/p watchman, currently on ASA81 mg daily - held GI- - Heme- ID- MSK- Endo- Lytes- Lines and Tubes: PIV Nutrition: Reg Prophylaxis: EPCs, Lovenox Disposition: - PT/OT recommendation: Pending - PM&R recommendation: Pending - Discharge plan: Pending PT/OT - Barriers to discharge: Pending clinical course - Level of care to be continued: Stepdown Medical Decision Making: High Subjective NAEON. Patient is pleasant and conversational but mildly confused, consistent with baseline per daughter. Denies back pain at rest, but discomfort noted with movement such as sitting up. Denies numbness, tingling, or weakness in the legs. Denies any urinary or bowel issues. Objective Vital signs: Vitals: 10/23/24 0231 10/23/24 0358 10/23/24 0521 10/23/24 0802 BP: (!) 159/120 (!) 144/119 (!) 118/105 (!) 136/111 Pulse: 89 84 80 77 Resp: 18 Temp: 37.1 C (98.7 F) 37.1 C (98.7 F) 36.4 C (97.5 F) TempSrc: Oral Oral Oral SpO2: 90% 94% 98% 93% Weight: 85.6 kg (188 lb 11.4 oz) Height: 170.2 cm (5' 7 ) Temperature Range Last 24 Hours : Temp: 36.4 C (97.5 F) Temp Av.8 C (98.3 F) Min: 36.4 C (97.5F) Max: 37.1 C (98.7 F) Admit Weight: 85.6 kg (188 lb 11.4 oz) Body mass index is 29.56 kg/m . Last Weights: Wt Readings from Last 3 Encounters: 10/23/24 85.6 kg (188 lb 11.4 oz) I/O's: Intake/Output Summary (Last 24 hours) at 10/23/2024 0847 Last data filed at 10/23/2024 0521 Gross per 24 hour Intake -- Output 400 ml Net -400 ml Physical Exam Physical Exam Physical Exam Airway: Intact Breathing: Intact Circulation: Intact GCS: 15 Eye: Verbal Motor 1 Does not open 1 No sounds 1 No movement 2 Opens to pain2 Incomprehensible sounds2 Extension w/pain 3 Opens to voice 3 Incoherent words 3 Flex w/ pain 4 Spontaneous4 Confused / disoriented4 Withdraw from pain 5 Oriented 5 Localizes to painful stimuli 6 Obeys commands General: No distress HEENT: Atraumatic EOMI PERRL 3mm, CN II-XII: grossly intact No Malocclusion No drainage from ears bilaterally Battles sign Absent Nares patent Dentition intact Neck: Trachea Midline Non Tender to palpation No pain with Flex / Ext / Lat Flex / Rotation, Axial Load & distraction Chest: No Chest wall tenderness, No Crepitus, No Bruising Lungs:Good air movement B, CTA B, No Ronchi, No Wheeze Unlabored, breathing room air Heart: Heart tones S1/S2, No Murmur noted, Regular Abd: Soft, No guarding, No rigidity No Bruising Non Tender RUQ / LUQ / RLQ / LLQ Pelvis: Iliac crest-Non tender to compression Symphysis pubis- Non tender to compression Penis / Scrotum / Peroneal: No wounds noted Rectum: Not performed Back: T Spine- non tender to palpation L Spine- non tender to palpation; pain with sitting up No wounds / ecchymosis Extremities: RUE: 5/5 strength LUE: 5/5 strength RLE: 5/5 strength LLE: 5/5 strength Pulses 2+ x 4 Intact to light touch No calf/thigh tenderness Neuro: Alert, pleasant, appropriate. Oriented to person, disoriented to time/place. Lower extremitystrength 5/5 bilaterally. Sensation intact to light touch. Able to wiggle toes and push against resistance. No focal deficits noted. Labs Results from last 7 days Lab Units 10/23/24 0234 WBC x10E9/L 8.6 HEMOGLOBIN g/dL 15.8 HEMATOCRIT % 46.8 PLATELETS X10E9/L 162 MONOS PCT AUTO % 3.6 EOS PCT AUTO % 1.3 Results from last 7 days Lab Units 10/23/24 0234 SODIUM mmol/L 139 POTASSIUM mmol/L 4.8 CO2 mmol/L 28 BUN mg/dL 25 CREATININE mg/dL 1.10 GLUCOSE mg/dL 101* Results from last 7 days Lab Units 10/23/24 0234 INR 1.0 PROTIME sec 10.9 APTT sec 29 Labs obtained during the last 24 hrs. independently reviewed. Recent Studies X-ray chest 1 view Result Date: 10/23/2024 XR CHEST 1 VW HISTORY: Trauma COMPARISON: None TECHNIQUE: AP portable semiupright view obtained. FINDINGS: The cardiomediastinal silhouette is within normal limits. Pulmonary vasculature is unremarkable. No focal consolidation. No pneumothorax or pleural effusion. Atherosclerotic calcifications of aortic arch. IMPRESSION: No radiographic evidence of acute cardiopulmonary process. Approved by Resident Telma Waters MD on 10/23/2024 3:05 AM I, Telma Clayton MD have personally reviewed the image(s) and agree with and/or edited the report Finalized by Telma Clayton MD on 10/23/2024 3:10 AM X-ray pelvis 1 or 2 views Result Date: 10/23/2024 XR PELVIS 1 OR 2 VWS HISTORY: Trauma COMPARISON: None FINDINGS: Single supine AP view obtained. No fracture or dislocation. There is no destructive osseous lesion. Mild degenerative changes of the hip and SI joints. Multilevel degenerative changes of the lumbar spine. Postsurgical clips projecting over the pelvis. Vascular calcifications. IMPRESSION: No acute osseous abnormality. Approved by Resident Telma Waters MD on 10/23/2024 3:05 AM I, Patito Jurado MD have personally reviewed the image(s) and agree with and/or edited the report Finalized by Patito Jurado MD on10/23/2024 3:08 AM Radiographic studies obtained during the last 24 hrs independently reviewed for acute traumatic injuries. Allergies Allergies Allergen Reactions Sulfa (Sulfonamide Antibiotics) Rash Current Medications SCHEDULED PRN dextrose dextrose 5 % in water dextrose 50 % in water (D50W) glucagon (human recombinant) ondansetron oxyCODONE OR oxyCODONE sodium chloride Current Infusions Alexander Berrios, MS3 10/23/24 8:47 AM Hermilo Mcdermott MD Orthopaedic Surgery, Resident 10/23/24 9:33 AM Trauma can be reached via Patient Touch Pager: [phone] Cosigned by Jewel Vail MD at 10/23/2024 9:57 AM EDT Associated attestation - Jewel Vail MD - 10/23/2024 9:57 AM EDT Attending Attestation: I saw the patient. I participated and was physically present during the critical/gamez portions of the service. I was directly involved in the management and treatment plan of the patient. I reviewed the resident's note. [facility] Dis[facility]* Discharge Instructions* Ana Luisa Clement PA-C - 10/25/2024 1:14 PM EDT Wear back brace when upright and with mobility/activity. MRI lumbar spine ordered. Once completed, please call [phone] option #3 for us to review. documented in [facility] encounterC[facility] Progress note* Discharge Planning Note - Kait Meyer RN - 10/25/2024 12:06 PM EDT DISCHARGE PLANNING NOTE Per RN during discharge transition rounds, barriers to discharge are: MRI lumbar. Discharge Plan: [facility], will not require insurance authorization. 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 - KAIT MEYER RN 10/25/24 12:06 PM [facility] [employer] [phone] Plan of care note* Plan of Care - Jean Barbosa RN - 10/25/2024 8:36 AM EDT Problem: Pain Goal: Patient goal is pain score less than 4, able to rest, and participant in treatment plan as appropriate Description: INTERVENTIONS: 1. Encourage patient or legal abrasives sales representative to report early pain and ask for pain medicine when needed 2. Assess pain using appropriate pain scale and include the scale used when documenting 3. Administer analgesics based on type and severity of pain and evaluate response within appropriate time frame 4. Implement non-pharmacological measures as appropriate and evaluate response 5. Consider cultural and social influences on pain and pain management 6. Notify LIP if interventions ineffective or patient reports new pain 7. Monitor vital signs including pulse ox, end-tidal CO2 based on pain intervention 8. Reassess pain per policy 9. Teach patient or legal abrasives sales representative interventions for comforting Outcome: Progressing Note: Evaluation of progress towards goal: Patient verbalizes pain needs. PRN pain medication helpscontrol patient pain. Patient encouraged to call out for PRN pain medication as needed. Plan of care on going at this time. Problem: Safety Goal: Patient will be injury free during hospitalization Description: INTERVENTIONS: 1. Assess patient's risk for falls and implement fall prevention plan of care per policy 2. Provide and maintain a safe environment 3. Proper use of double Identifiers 4. Medication administration using the 5 rights 5. Hand hygiene 6. Specimens are labeled at the bedside 7. Instruct patient/ patient abrasives sales representative about use of safety devices 8. Include patient/ patient abrasives sales representative in decisions related to safety Outcome: Progressing Note: Evaluation of progress towards goal: Patient is free from falls at this time. Patient educated to use call light for assistance when needed. Plan of care ongoing at this time. Problem: Infection Goal: Absence of infection during hospitalization Description: INTERVENTIONS 1. Assess and monitor for signs and symptoms of infection. 2. Monitor lab/diagnostic results. 3. Monitor all insertion sites i.e., indwelling lines, tubes and drains. 4. Monitor endotracheal (as able) and nasal secretions for changes in amount and color. 5. Administer medications as ordered. 6. Instruct and encourage patient and family to use good hand hygiene technique. 7. Identify and instruct patient/patient abrasives sales representative in use of appropriate isolation precautionsfor identified infection/symptoms. 8. Provide and discuss with patient/patient abrasives sales representative on educational MDRO sheet. 9. Encourage and monitor nutritional status daily and consult machine cell tuber if indicated. 10. Implement neutropenic guidelines as needed. Outcome: Progressing Note: Evaluation of progress towards goal: Patient shows no signs or symptoms of infection at this time. Lab work and vitals reviewed. Patient educated on calling out for concerns. Plan of care ongoing at this time. Problem: Knowledge Deficit Goal: Patient/patient abrasives sales representative demonstrates understanding of disease process, treatment plan,medications, and discharge instructions Description: INTERVENTIONS 1. Complete learning assessment and assess knowledge base 2. Provide teaching at level of understanding 3. Provide teaching via preferred learning method(s) Outcome: Progressing Note: Evaluation of progress towards goal: Plan of care reviewed with patient and questions were addressed. Patient informed to ask question if they have any questions or concerns. Plan of care on going at this time. Problem: Discharge Planning Goal: Discharge to post-acute care, other facility, or home with appropriate resources Description: Patient's goal is: INTERVENTIONS 1. Conduct assessment to determine patient/family and health care team treatment goals, and need for post-acute services based on payer coverage, community resources, and patient preferences, and barriers to discharge 2. Coordinate with Social work, Care Navigation, and Utilization Review to arrange appropriate level of services according to patient's needs based on patient preference and payer coverage in collaboration with the physician and health care team 3. Address psychosocial, clinical, and financial barriers to discharge as identified in assessment in conjunction with the patient/family and health care team 4. Consult appropriate ancillary services (i.e.. PT/OT/ST, etc) as needed 5. Communicate with and update the patient/family, physician, and health care team regarding progress on the discharge plan 6. Identify discharge learning needs (meds, wound care, etc). 7. Arrange for needed discharge transportation as appropriate Outcome: Progressing Note: Evaluation of progress towards goal: Plan of care reviewed with patient and questions were addressed. Patient informed to ask question if they have any questions or concerns. Plan of care on going at this time. Problem: Urinary Incontinence Goal: Perineal skin integrity is maintained or improved Description: INTERVENTIONS 1. Assess genitourinary system, perineal skin, labs (urinalysis), and history of incontinence to include past management, aggravating, and alleviating factors 2. Keep skin clean and dry 3. Apply skin protectant 4. Develop skin care regimen 5. Provide privacy when changing patients incontinence device to maintain their dignity 6. Consider placing an indwelling catheter 7. Collaborate with interdisciplinary team and initiate plans and interventions as needed Outcome: Progressing Note: Evaluation of progress towards goal: Patient is free from skin breakdown/no changes in skin noted. Patient encouraged to call out with concerns. Plan of care on going at this time. [employer] [id number] Plan of care note* Plan of Care - Ana Maria Courtney - 10/24/2024 7:50 PM EDT Problem: Pain Goal: Patient goal is pain score less than 4, able to rest, and participant in treatment plan as appropriate Description: INTERVENTIONS: 1. Encourage patient or legal abrasives sales representative to report early pain and ask for pain medicine when needed 2. Assess pain using appropriate pain scale and include the scale used when documenting 3. Administer analgesics based on type and severity of pain and evaluate response within appropriate time frame 4. Implement non-pharmacological measures as appropriate and evaluate response 5. Consider cultural and social influences on pain and pain management 6. Notify LIP if interventions ineffective or patient reports new pain 7. Monitor vital signs including pulse ox, end-tidal CO2 based on pain intervention 8. Reassess pain per policy 9. Teach patient or legal abrasives sales representative interventions for comforting Outcome: Progressing Note: Evaluation of progress towards goal: Patient rates pain as tolerable this shift. Patient encouraged to report need for pain medications as needed. Patient assessed for pain using appropriate pain scale. Patient pain goal 0 of 10, medications available. Problem: Safety Goal: Patient will be injury free during hospitalization Description: INTERVENTIONS: 1. Assess patient's risk for falls and implement fall prevention plan of care per policy 2. Provide and maintain a safe environment 3. Proper use of double Identifiers 4. Medication administration using the 5 rights 5. Hand hygiene 6. Specimens are labeled at the bedside 7. Instruct patient/ patient abrasives sales representative about use of safety devices 8. Include patient/ patient abrasives sales representative in decisions related to safety Outcome: Progressing Note: Evaluation of progress towards goal: Safety maintained and call light within reach. No falls or injuries this shift. Bed rails up x2. Orientation reviewed. Hourly rounded maintained. Will continue to maintain safety until end of this shift. Bed alarm maintained. Personal belongings adjacent to bed on table. Call light within reach. Patient identifiers used. Problem: Infection Goal: Absence of infection during hospitalization Description: INTERVENTIONS 1. Assess and monitor for signs and symptoms of infection. 2. Monitor lab/diagnostic results. 3. Monitor all insertion sites i.e., indwelling lines, tubes and drains. 4. Monitor endotracheal (as able) and nasal secretions for changes in amount and color. 5. Administer medications as ordered. 6. Instruct and encourage patient and family to use good hand hygiene technique. 7. Identify and instruct patient/patient abrasives sales representative in use of appropriate isolation precautionsfor identified infection/symptoms. 8. Provide and discuss with patient/patient abrasives sales representative on educational MDRO sheet. 9. Encourage and monitor nutritional status daily and consult machine cell tuber if indicated. 10. Implement neutropenic guidelines as needed. Outcome: Progressing Note: Evaluation of progress towards goal: Labs and vitals monitored for S/S of infection. Problem: Knowledge Deficit Goal: Patient/patient abrasives sales representative demonstrates understanding of disease process, treatment plan,medications, and discharge instructions Description: INTERVENTIONS 1. Complete learning assessment and assess knowledge base 2. Provide teaching at level of understanding 3. Provide teaching via preferred learning method(s) Outcome: Progressing Note: Evaluation of progress towards goal: Assessment of best learning methods and knowledge base completed.Teaching provided at patient's level of understanding, and via patient's preferred learningmethods when applicable. Patient understands care and treatment plan at this time with RN availableif questions arise. Problem: Discharge Planning Goal: Discharge to post-acute care, other facility, or home with appropriate resources Description: Patient's goal is: INTERVENTIONS 1. Conduct assessment to determine patient/family and health care team treatment goals, and need for post-acute services based on payer coverage, community resources, and patient preferences, and barriers to discharge 2. Coordinate with Social work, Care Navigation, and Utilization Review to arrange appropriate level of services according to patient's needs based on patient preference and payer coverage in collaboration with the physician and health care team 3. Address psychosocial, clinical, and financial barriers to discharge as identified in assessment in conjunction with the patient/family and health care team 4. Consult appropriate ancillary services (i.e.. PT/OT/ST, etc) as needed 5. Communicate with and update the patient/family, physician, and health care team regarding progress on the discharge plan 6. Identify discharge learning needs (meds, wound care, etc). 7. Arrange for needed discharge transportation as appropriate Outcome: Progressing Note: Evaluation of progress towards goal: Discharge planning is in progress at this time. Problem: Potential for Compromised Skin Integrity Goal: Skin integrity is maintained or improved Description: Patient's goal is: INTERVENTIONS 1. Perform initial skin assessment on admission and as needed 2. Turn patient every 2 hours and PRN 3. Relieve pressure to bony prominences 4. Avoid shearing 5. Keep skin clean and dry 6. Alternate a full bath with partial baths for elderly 7. Apply lotion/moisturizer on skin 8. Monitor patient's hygiene practices 9. Float heels 10. Collaborate with interdisciplinary team and initiate plans and interventions as needed Outcome: Progressing Note: Evaluation of progress towards goal: Skin assessment performed during shift, patient turning per protocol and PRN, patient's skin is kept clean and dry. Patient positioning self regulated. Goal: Patient's nutritional intake is adequate Description: Patient's goal is: INTERVENTIONS 1. Assess and monitor food intake and supplements, patient food preferences, nausea, vomiting, labs, oral cavity (gums, teeth, tongue, mucosa), proper denture fit, and cultural beliefs 2. Monitor for signs of hypoglycemia and hyperglycemia 3. Collaborate with interdisciplinary team and initiate plan and interventions as ordered 4. Monitor patient's weight 5. Assist patient with meals/food selection 6. Assist patient with eating 7. Allow adequate time for meals 8. Provide pleasant environment during mealtime 9. Increase social contact during mealtimes 10. Plan activities to conserve energy 11. Encourage/perform oral hygiene as appropriate 12. Encourage patient to take dietary supplement as ordered 13. Collaborate with clinical machine cell tuber 14. Include patient/ patient's abrasives sales representative in decisions related to nutrition Outcome: Progressing Note: Evaluation of progress towards goal: Patient has regular diet ordered and oral intake is monitored this shift. Problem: Urinary Incontinence Goal: Perineal skin integrity is maintained or improved Description: INTERVENTIONS 1. Assess genitourinary system, perineal skin, labs (urinalysis), and history of incontinence to include past management, aggravating, and alleviating factors 2. Keep skin clean and dry 3. Apply skin protectant 4. Develop skin care regimen 5. Provide privacy when changing patients incontinence device to maintain their dignity 6. Consider placing an indwelling catheter 7. Collaborate with interdisciplinary team and initiate plans and interventions as needed Outcome: Progressing Note: Evaluation of progress towards goal: Skin assessment performed during shift, patient turning per protocol and PRN, patient's skin is kept clean and dry. Patient positioning self regulated. Problem: Moderate - High Risk Fall Score Description: Fox Fall Score of =/> 25 or indicated by [facility] Assessment Goal: Patient should be free from fall Description: Interventions: 1. [place] to environment 2. Hourly rounds addressing the 4 P's (Pain, Positioning, Possessions, Potty) 3. Clear area of hazards (spills, clutter, electrical cords, unnecessary equipment) 4. Place equipment (bed & TV controls, call light, phone, urinal) within reach 5. Encourage patient to wear glasses and hearing aides as appropriate 6. Maintain bed in lowest position 7. Lock wheels on bed/wheelchair 8. Provide adequate lighting, including night light 9. Assess need for additional bedding, food/fluids, pain med's prior to sleep/routinely 10. Provide gripper slippers or personal non-skid footwear 11. Teach patient and patient abrasives sales representative to maintain environment for safety and engage in all aspects of fall prevention program 12. Remind patient to call for help before getting out of bed 13. Initiate bed/chair/exit alarms supportive devices as appropriate, (chair wedge, no-skid floor mat, raised edge mattress, hip protectors) 14. Locate patient bed assignment for optimal visualization 15. Evaluate and identify Safe Patient Handling Equipment needs 16. Provide supervision when out of bed or chair 17. Utilize gait belt as needed to assist with ambulation 18. Place adaptive equipment (cane, walker) within reach 19. Request patient abrasives sales representative bring adaptive equipment/mobility aids from home or obtain and provide as needed 20. Consult pharmacy regarding effects of med's affecting mobility, cognition, and alternatives 21. Obtain physician order for PT if risk factors associated with mobility are present 22. Obtain physician order for OT as appropriate 23. Utilize diversional activities 24. Educate patient and patient abrasives sales representative how to maintain a safe environment during visitationtimes (notify nurse prior to leaving bedside) 25. Consider appropriateness of medical or non-medical health researcher 26. Set up voiding schedule as appropriate (every 2 hours) Outcome: Progressing Note: Evaluation of progress towards goal: Safety maintained and call light within reach. No falls or injuries this shift. Bed rails up x2. Orientation reviewed. Hourly rounded maintained. Will continue to maintain safety until end of this shift. Bed alarm maintained. Personal belongings adjacent to bed on table. Call light within reach and encouraged to use. Cosigned by Stephanie Hernandez RN at 10/24/2024 9:56 PM EDT Associated attestation - Stephanie Hernandez RN - 10/24/2024 9:56 PM EDT I attest to the care plan above. [employer] [id number] Progress note* Discharge Planning Note - Alexa Call - 10/24/2024 10:59 AM EDT DISCHARGE PLANNING NOTE Referral to [facility] in [place] (P# ;F# ) , [facility] [place], [place](P#: ; F#: ) , [facility] in [place], [place] (P# ; F#: ) [facility]05-15-2025 Progress note* Discharge Planning Note - Kait Meyer RN - 10/24/2024 10:49 AM EDT DISCHARGE PLANNING NOTE Per RN during discharge transition rounds, barriers to discharge are: MRI Lumbar. Discharge Plan: SNF - referrals tasked to [facility] for 1.) [facility] 2.) [facility] nursing [facility] re[facility] 3.) [facility] in [facility]. Will need 3 [place] stay, no insuranceauth required. 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 - KAIT MEYER RN 10/24/24 10:49 AM [facility]05-15-2025 Plan of care note* Plan of Care - Jean Barbosa RN - 10/24/2024 8:58 AM EDT Problem: Pain Goal: Patient goal is pain score less than 4, able to rest, and participant in treatment plan as appropriate Description: INTERVENTIONS: 1. Encourage patient or legal abrasives sales representative to report early pain and ask for pain medicine when needed 2. Assess pain using appropriate pain scale and include the scale used when documenting 3. Administer analgesics based on type and severity of pain and evaluate response within appropriate time frame 4. Implement non-pharmacological measures as appropriate and evaluate response 5. Consider cultural and social influences on pain and pain management 6. Notify LIP if interventions ineffective or patient reports new pain 7. Monitor vital signs including pulse ox, end-tidal CO2 based on pain intervention 8. Reassess pain per policy 9. Teach patient or legal abrasives sales representative interventions for comforting Outcome: Progressing Note: Evaluation of progress towards goal: Patient verbalizes pain needs. PRN pain medication helpscontrol patient pain. Patient encouraged to call out for PRN pain medication as needed. Plan of care on going at this time. Problem: Safety Goal: Patient will be injury free during hospitalization Description: INTERVENTIONS: 1. Assess patient's risk for falls and implement fall prevention plan of care per policy 2. Provide and maintain a safe environment 3. Proper use of double Identifiers 4. Medication administration using the 5 rights 5. Hand hygiene 6. Specimens are labeled at the bedside 7. Instruct patient/ patient abrasives sales representative about use of safety devices 8. Include patient/ patient abrasives sales representative in decisions related to safety Outcome: Progressing Note: Evaluation of progress towards goal: Patient is free from falls at this time. Patient educated to use call light for assistance when needed. Plan of care ongoing at this time. Problem: Infection Goal: Absence of infection during hospitalization Description: INTERVENTIONS 1. Assess and monitor for signs and symptoms of infection. 2. Monitor lab/diagnostic results. 3. Monitor all insertion sites i.e., indwelling lines, tubes and drains. 4. Monitor endotracheal (as able) and nasal secretions for changes in amount and color. 5. Administer medications as ordered. 6. Instruct and encourage patient and family to use good hand hygiene technique. 7. Identify and instruct patient/patient abrasives sales representative in use of appropriate isolation precautionsfor identified infection/symptoms. 8. Provide and discuss with patient/patient abrasives sales representative on educational MDRO sheet. 9. Encourage and monitor nutritional status daily and consult machine cell tuber if indicated. 10. Implement neutropenic guidelines as needed. Outcome: Progressing Note: Evaluation of progress towards goal: Patient shows no signs or symptoms of infection at this time. Lab work and vitals reviewed. Patient educated on calling out for concerns. Plan of care ongoing at this time. Problem: Knowledge Deficit Goal: Patient/patient abrasives sales representative demonstrates understanding of disease process, treatment plan,medications, and discharge instructions Description: INTERVENTIONS 1. Complete learning assessment and assess knowledge base 2. Provide teaching at level of understanding 3. Provide teaching via preferred learning method(s) Outcome: Progressing Note: Evaluation of progress towards goal: Plan of care reviewed with patient and questions were addressed. Patient informed to ask question if they have any questions or concerns. Plan of care on going at this time. Problem: Discharge Planning Goal: Discharge to post-acute care, other facility, or home with appropriate resources Description: Patient's goal is: INTERVENTIONS 1. Conduct assessment to determine patient/family and health care team treatment goals, and need for post-acute services based on payer coverage, community resources, and patient preferences, and barriers to discharge 2. Coordinate with Social work, Care Navigation, and Utilization Review to arrange appropriate level of services according to patient's needs based on patient preference and payer coverage in collaboration with the physician and health care team 3. Address psychosocial, clinical, and financial barriers to discharge as identified in assessment in conjunction with the patient/family and health care team 4. Consult appropriate ancillary services (i.e.. PT/OT/ST, etc) as needed 5. Communicate with and update the patient/family, physician, and health care team regarding progress on the discharge plan 6. Identify discharge learning needs (meds, wound care, etc). 7. Arrange for needed discharge transportation as appropriate Outcome: Progressing Note: Evaluation of progress towards goal: Plan of care reviewed with patient and questions were addressed. Patient informed to ask question if they have any questions or concerns. Plan of care on going at this time. Problem: Potential for Compromised Skin Integrity Goal: Skin integrity is maintained or improved Description: Patient's goal is: INTERVENTIONS 1. Perform initial skin assessment on admission and as needed 2. Turn patient every 2 hours and PRN 3. Relieve pressure to bony prominences 4. Avoid shearing 5. Keep skin clean and dry 6. Alternate a full bath with partial baths for elderly 7. Apply lotion/moisturizer on skin 8. Monitor patient's hygiene practices 9. Float heels 10. Collaborate with interdisciplinary team and initiate plans and interventions as needed Outcome: Progressing Note: Evaluation of progress towards goal: Patient is free from skin breakdown/no changes in skin noted. Patient encouraged to call out with concerns. Plan of care on going at this time. [employer] [id number] Progress note* PT/OT/COUNTER TENDER - ROXY Mayo - 10/24/2024 8:32 AM EDT Occupational Therapy Evaluation Discharge Recommendations for Safe Patient Transition Post Acute Moderate Rehab Needs: Recommend moderate intensity rehab, Tolerate 1- 2 hrs of therapy 3-5 days/wk Current Impairments Informing Therapy Recommendation: Ambulation status/safety, Cognition, Fall risk, ADL status, Endurance level 6 Clicks: Daily Activity Putting on and taking off regular lower body clothing?: A lot Bathing (including washing, rinsing, drying)?: A lot Toileting, which includes using toilet, bedpan or urinal?: A lot Putting on and taking off regular upper body clothing?: A lot Taking care of personal grooming such as brushing teeth?: A little Eating meals?: A little Scoring Daily Activity Raw Score: 14 CMS G Code Modifier: CK Pt admit 10/23 from an outside hospital after a fall from standing up from his lift chair w/ pt c/o back pain. Dx: L2, L5 sup endplate compression fxs Neurosurgery consulted. No surgical intervention warranted, obtain MRI of L spine. LSO brace to be worn w/ activity, ok for activity as tolerated, PT/OT MRI pending History reviewed. No pertinent past medical history. No past surgical history on file. Per EMR h/o dementia, afib s/p Watchman Therapy Plan Need for skilled Occupational Therapy to address deficits in ADL independence and functional mobility due to a status decline resulting from decreased endurance, balance and strength s/p fall. OT Treatment/Interventions: ADL retraining, Functional transfer training, UE strengthening/ROM, Endurance training, Patient/family training, Equipment eval/education, Balance, Bed mobility, Gait training, Compensatory technique education, Functional activities OT Frequency: 4-5days/week OT Duration: length of stay Assessment Patient Assessment Therapy Problem List: Decreased ADL status, Decreased balance, Decreased cognition, Decreased endurance, Decreased mobility, Decreased safe judgement during ADL, Decreased self-care trans, Decreased UE strength Patient Response to Treatment: Tolerated evaluation without adverse reaction Mood/Affect: Appropriate for circumstances Rehab Prognosis: Good, With continued OT status post acute discharge Visit RN Communication: Yes Medical Record Reviewed: Yes OT Type of Visit: Evaluation Precautions Activity: early mobility guideline:yes, pass Equipment: RW, gait belt, Marta stedy Telemetry/Warp Trucker: Yes Oxygen Order : spo2 90% or higher with 0-5L Oxygen Used: room air Other: high fall risk- bed/chair alarms d/t dementia w/ confusion. L2/L5 compression fxs with LSO brace when out of bed Subjective Occupational Therapy Comments: pt's daughter reports staff at outside hospital prior to transfer to[facility], allowed pt to get up to go the bathroom and pt fell in the bathroom Pain Assessment Pain Assessment: 0-10 Pain Score: 7 Pain Location: Back Pain Orientation: Lower Pain Intervention(s): Repositioned, Ambulation/increased activity, Distraction (RN Jean notified and pt given Tylenol during eval; LSO brace donned) Response to Interventions: Pain unchanged Home Living Type of Home: House Home Layout: Two level, Able to live on main level with bedroom/bathroom (basement and 2nd floor blocked off) Bathroom Shower/Tub: Tub/shower unit Bathroom Toilet: Raised Bathroom Equipment: Shower chair, Grab bars in shower, Grab bars around toilet Home Equipment: Rolling walker, Quad cane, Lift chair (traditional flat bed, cameras in the home) Other : pt not using AD prior to admission Prior Function Lives With: Alone Receives Help From: Family (5 children- 3 local. Pt's in a group home) Level of Mobility: Needs assistance with ADLs or functional transfers or gait Transfers: Independent Mobility: Independent Toileting: Independent Bath: Min assist (assist from son w/ showers) Dressing: (intermittent min assist) Grooming: Independent Feeding: Independent Homemaking Assistance: Needs assistance Other: multiple family members come and go during the day/ evening hours. pt has assistance w/ meals, laundry, house work, medications, showers and getting into bed Vocational: Retired ADL / IADL Where Assessed: Supine, bed, Edge of bed, Chair, At toilet (standing at the sink in marta stedy) Eating Assistance: Setup Grooming Assistance: Min assist Grooming Deficit: Wash/dry hands (standing in marat stedy at the sink) Bathing/Showering Assistance: Max assist, Setup (seated) Toilet/Commode Assistance: Mod assist Toilet/Commode Deficit: Clothing management up, Clothing management down, Perineal hygiene (pt attempting seema care seated on toilet but limited by pain, min assist needed for thoroughness. pt needing assist to gather toilet paper from the toilet paper rascon) UE Dressing Assistance: Mod assist, Setup (seated; max assist don LSO brace) LE Dressing Assistance: Mod assist, Setup (seated) Footwear Assistance: Max assist Footwear Deficit: R sock, L sock Other: increased assist w/ ADLs d/t decreased processing, pain and decreased sitting/standing balance Home Management - IADL Other: increased assist w/ ADLs d/t decreased processing, pain and decreased sitting/standing balance Hearing / Speech / Vision Hearing: Within Functional Limits Speech: Within Functional Limits (pt's converstaions tangential at times) Current Vision: Wears glasses all the time Cognition Overall Cognitive Status: Exceptions to Within Functional Limits Arousal/Alertness: Appropriate responses to stimuli Attention Span: Attends with cues to redirect Memory: Decreased short term memory, Decreased immediate memory, Decreased recall of biographical information, Decreased recall of recent events Orientation Level: Oriented to person, Disoriented to month, Disoriented to situation, Disoriented to time Following Commands: Follows one step commands with repetition, Follows one step commands with increased time Safety Judgment: Decreased awareness of need for assistance, Decreased awareness of need for safety Awareness of Errors: Assistance required to identify errors made, Assistance required to correct errors made Insight of Deficits: Decreased awareness of deficits Problem Solving: Reduced Interfering Components: Working memory, Processing speed, Attention - sustained Sensation Overall Sensation Status: (pt denies numbness/tingling) Bed Mobility Rolling: Min assist, Right, Verbal cues, Tactile cues (use of bed rail. HOB grossly 10 degrees, pt not tolerating laying flat) Supine to Sit: Mod assist, Right, Verbal cues, Tactile cues (from sidelying w/ use of bed rail and HOB grossly 10 degrees) Sit to Supine: (up in chair w/ call light and chiar alarm on) Other: ed pt on log roll technique w/ bed mobility d/t L2/L5 compression fxs Transfers Sit to Stand: Mod assist, Verbal cues, Tactile cues (pt stood from EOB w/ RW in front of him and requiring mod assist. pt stood w/ use of marta stedy 2x requiring min assist.) Stand to Sit: Mod assist, Verbal cues, Tactile cues (completed 3x) Bed to Chair: Mod assist (bed to chair w/ use of RW) Toilet Transfers: Mod assist, Verbal cues, Tactile cues (w/ use of marta stedy) Other: pt into bathroom and back to chair this date via marta stedy d/t pain, unsteadiness w/ short distance transition from bed to chair while using RW. pt requiring verbal/tactile cues for safe transfers w/ both use of RW and marta stedy Gait Base of Support: Narrow Pattern: Decreased awa, R Decreased foot clearance, L Decreased foot clearance Gait Assistance: Mod assist Assistive Device: Rolling walker Gait Distance: 2' bed to chair Limiting Factors to Gait: Decreased safety, Pain 2 Turns: Not attempted d/t safety concerns Balance Balance Evaluation: Exceptions to Functional Limits Sitting Balance: Static: Fair Sitting Balance: Dynamic: Fair, Poor (fair- to poor) Standing Balance: Static: Poor Standing Balance: Dynamic: Poor Other: pt sat EOB w/ min assist overall for balance d/t intermittent posterior leaning. Pt stood and ambulated bed to chair w/ use of RW and mod assist overall d/t L lateral lean, loss of balance. Utilized marta stedy for use of the restroom RUE Assessment: Exceptions to WFL (generalized weakness) LUE Assessment: Exceptions to WFL (generalized weakness) Activity Tolerance Endurance: Tolerates >30 minutes activity with rest breaks Plan Occupational Therapy Care Plan Occupational Therapy Care Plan (Active) Template: OT - Occupational Therapy Problem: Activity Tolerance Dates: Start: 10/24/24 Disciplines: OT Goal: Tolerate > 30 minutes of activity WITHOUT rest breaks Dates: Start: 10/24/24 Expected End: 11/14/24 Description: Goal Description: Disciplines: OT Problem: Bathing LB Dates: Start: 10/24/24 Disciplines: OT Goal: Patient will perform bathing LB with Minimum Assist Dates: Start: 10/24/24 Expected End: 11/14/24 Description: Goal Description: Disciplines: OT Problem: Bathing UB Dates: Start: 10/24/24 Disciplines: OT Goal: Patient will perform bathing UB with Minimum Assist Dates: Start: 10/24/24 Expected End: 11/14/24 Description: Goal Description: Disciplines: OT Problem: Bed Mobility Dates: Start: 10/24/24 Disciplines: OT Goal: Patient will perform bed mobility with Supervision Dates: Start: 10/24/24 Expected End: 11/14/24 Description: Goal Description: Disciplines: OT Problem: Dressing LB Dates: Start: 10/24/24 Disciplines: OT Goal: Patient will perform dressing LB with Supervision Dates: Start: 10/24/24 Expected End: 11/14/24 Description: Goal Description: Disciplines: OT Problem: Dressing UB Dates: Start: 10/24/24 Disciplines: OT Goal: Patient will perform dressing UB with Supervision Dates: Start: 10/24/24 Expected End: 11/14/24 Description: Goal Description: Disciplines: OT Problem: Functional Mobility Dates: Start: 10/24/24 Disciplines: OT Goal: Patient will perform functional mobility with Supervision Dates: Start: 10/24/24 Expected End: 11/14/24 Description: Goal Description: Disciplines: OT Problem: Grooming Dates: Start: 10/24/24 Disciplines: OT Goal: Patient will perform grooming with Set-Up Dates: Start: 10/24/24 Expected End: 11/14/24 Description: Goal Description: Disciplines: OT Problem: Sitting Balance Dates: Start: 10/24/24 Disciplines: OT Goal: Improve balance to good Dates: Start: 10/24/24 Expected End: 11/14/24 Description: Pt will demo good sitting balance 100% of the time. Disciplines: OT Problem: Standing Balance Dates: Start: 10/24/24 Disciplines: OT Goal: Improve balance to good Dates: Start: 10/24/24 Expected End: 11/14/24 Description: Pt will demo good standing balance w/ use of AD for 6-10 minutes Disciplines: OT Problem: Strength Dates: Start: 10/24/24 Disciplines: OT Goal: Improve strength Dates: Start: 10/24/24 Expected End: 11/14/24 Description: Of extremity/ location:pt will demo good understanding, tolerance for B UE HEP To facilitate: Disciplines: OT Problem: Toilet Transfers Dates: Start: 10/24/24 Disciplines: OT Goal: Patient will perform toilet transfers with Supervision Dates: Start: 10/24/24 Expected End: 11/14/24 Description: Goal Description: Disciplines: OT Problem: Toileting Dates: Start: 10/24/24 Disciplines: OT Goal: Patient will perform toileting with Supervision Dates: Start: 10/24/24 Expected End: 11/14/24 Description: Goal Description: Disciplines: OT Problem: Transfers Dates: Start: 10/24/24 Disciplines: OT Goal: Patient will perform transfers with Supervision Dates: Start: 10/24/24 Expected End: 11/14/24 Description: Goal Description: Disciplines: OT Occupational Therapy Care Plan (Resolved) There are no resolved problems. Principal Problem: Lumbar compression fracture ([facility]) [id number] Progress note* PT/OT/COUNTER TENDER - Federico Carter, PT - 10/24/2024 8:28 AM EDT Physical Therapy Evaluation Discharge Recommendations for Safe Patient Transition Post Acute Moderate Rehab Needs: Recommend moderate intensity rehab Current Impairments Informing Therapy Recommendation: Ambulation status/safety, Cognition, Fall risk, ADL status, Endurance level, Caregiver needs/level of support 6 Clicks: Basic Mobility Turning from your back to your side while in a flat bed without using bed rails?: A little Moving from lying on your back to sitting on side of flat bed without using bed rails?: A lot Moving to and from bed to a chair (including w/c)?: A lot Standing up from a chair using your arms (e.g. w/c or bedside chair)?: A little To walk in hospital room?: A lot Climbing 3-5 steps with a railing?: Total Scoring 6 Clicks: Basic Mobility Raw Score: 13 [facility] G Code Modifier: CK Therapy Plan Need for skilled Physical Therapy to address deficits in functional mobility due to a status decline resulting from admission 10/23 from OSH s/p fall when standing from lift chair. Per family report, patient fell at OSH when attempting to stand from toilet alone. Patient c/o acute onset back pain. Dx: L2, L5 sup endplate compression fxs NS consulted. No surgical intervention warranted, obtain MRI of L spine. LSO brace to be worn w/ activity, ok for activity as tolerated, PT/OT PT Treatment/Interventions: ADL retraining, Functional transfer training, UE strengthening/ROM, LE strengthening/ROM, Endurance training, Cognitive reorientation, Patient/family training, Equipment eval/education, Balance, Bed mobility, Gait training, Functional activities, Neuromuscular reeducation PT Frequency: 4-5days/week PT Duration: length of stay History reviewed. No pertinent past medical history. No past surgical history on file. Assessment Patient Assessment Therapy Problem List: Decreased ADL status, Decreased balance, Decreased endurance, Decreased high-level ADLs, Decreased mobility, Decreased LE strength Patient Response to Treatment: Tolerated evaluation without adverse reaction Mood/Affect: Appropriate for circumstances Rehab Prognosis: Good, With continued PT status post acute discharge Visit RN Communication: Yes Medical Record Reviewed: Yes PT Type of Visit: Evaluation Precautions Activity: early mobility / pass Equipment: RW, gait belt, MARTA stedy, LSO brace Weight Bearing Status: no restrictions, LSO brace with activity Oxygen Used: room air Other: high fall risk, confusion, bed / chair alarm, L2 / L5 compression fracture with LSO brace Pain Assessment Pain Assessment: 0-10 Pain Score: 7 Observed Behavior: Grimacing Pain Location: Back Pain Orientation: Lower Pain Intervention(s): Repositioned, Distraction, Ambulation/increased activity Response to Interventions: Pain unchanged, Quiet Pain 2 Observed Behavior: Grimacing Home Living Type of Home: House Home Layout: Two level Stairs in Home: patient stays on main floor. Second story and basement access blocked. Bathroom Shower/Tub: Tub/shower unit Bathroom Toilet: Raised Bathroom Equipment: Grab bars in shower, Shower chair, Hand-held shower, Grab bars around toilet Home Equipment: Rolling walker, Quad cane, Lift chair Other : Pt denies use of AD at baseline. Prior Function Lives With: Alone (Spouse in ECF) Receives Help From: Family (3 local supportive children, other family stops by daily) Level of Mobility: Needs assistance with ADLs or functional transfers or gait Bath: Min assist Dressing: Min assist Homemaking Assistance: Needs assistance Meal Prep: Total assist Laundry: Total assist Yard Work: Total assist Driving: Total assist Shopping: Total assist Vocational: Retired ADL / IADL Hand Dominance: Right Hearing / Speech / Vision Hearing: Hard of hearing/hearing concerns Speech: Within Functional Limits Current Vision: Wears glasses all the time Cognition Overall Cognitive Status: Exceptions to Within Functional Limits Orientation Level: Oriented to person, Disoriented to place, Disoriented to time, Disoriented to age, Disoriented to month, Disoriented to situation Following Commands: Follows one step commands with increased time, Follows one step commands with repetition Awareness of Errors: Decreased awareness of errors Insight of Deficits: Decreased awareness of deficits Problem Solving: Nonfunctional Interfering Components: Processing speed, Motor planning, Attention - sustained Sensation Overall Sensation Status: (denies numbness / tingling) Bed Mobility Rolling: Min assist, Right Supine to Sit: Mod assist Sit to Supine: (remained up in chair with call light in reach) Other: HOB elevated Transfers Sit to Stand: Mod assist Stand to Sit: Min assist Other: Pt with mod assist to stand from elevated EOB to walker. Patient with R lateral lean and required increased time to stabilize in standing with cues to increase CLAUDIA. Gait Base of Support: Narrow Pattern: Decreased awa, R Decreased foot clearance, L Decreased foot clearance Gait Assistance: Mod assist Assistive Device: Rolling walker Gait Distance: 3 ft to chair Other: Patient with shuffle awa, unsteady with minor LOB. 2-person assist with frequent cues and redirection to ambulate to chair. Balance Sitting Balance: Static: Fair Sitting Balance: Dynamic: Poor Standing Balance: Static: Fair ((-)) Standing Balance: Dynamic: Poor Other: standing balance with bilat UE support RLE Assessment: (functional weakness secondary to pain) LLE Assessment: (functional weakness secondary to pain) Activity Tolerance Endurance: Tolerates <30 minutes activity WITHOUT vital sign changes Plan Physical Therapy Care Plan Physical Therapy Care Plan (Active) Template: PT - Physical Therapy Problem: Activity Tolerance Dates: Start: 10/24/24 Disciplines: PT Goal: Tolerate > 30 minutes of activity WITH rest breaks Dates: Start: 10/24/24 Expected End: 11/14/24 Description: Goal Description: Patient to perform functional range / strength exercises to improve functional strength, balance and activity tolerance for improved independence and safety with mobility. Disciplines: PT Problem: Bed Mobility Dates: Start: 10/24/24 Disciplines: PT Goal: Patient will perform bed mobility with Stand By Assist Dates: Start: 10/24/24 Expected End: 11/14/24 Description: Goal Description: Disciplines: PT Problem: Gait Dates: Start: 10/24/24 Disciplines: PT Goal: Patient will perform gait with Contact Guard Dates: Start: 10/24/24 Expected End: 11/14/24 Description: With__RW__,__100__feet Goal Description: Disciplines: PT Problem: Sitting Balance Dates: Start: 10/24/24 Disciplines: PT Goal: Improve balance to good Dates: Start: 10/24/24 Expected End: 11/14/24 Description: Static Dynamic Disciplines: PT Problem: Standing Balance Dates: Start: 10/24/24 Disciplines: PT Goal: Improve balance to good Dates: Start: 10/24/24 Expected End: 11/14/24 Description: With bilat UE support Disciplines: PT Problem: Transfers Dates: Start: 10/24/24 Disciplines: PT Goal: Patient will perform transfers with Contact Guard Dates: Start: 10/24/24 Expected End: 11/14/24 Description: Goal Description: Patient to perform mobility with good safety awareness. Disciplines: PT Physical Therapy Care Plan (Resolved) There are no resolved problems. Principal Problem: Lumbar compression fracture ([facility]) [employer] [id number] Plan of care note* Plan of Care - Ana Maria Courtney - 10/23/2024 7:44 PM EDT Problem: Pain Goal: Patient goal is pain score less than 4, able to rest, and participant in treatment plan as appropriate Description: INTERVENTIONS: 1. Encourage patient or legal abrasives sales representative to report early pain and ask for pain medicine when needed 2. Assess pain using appropriate pain scale and include the scale used when documenting 3. Administer analgesics based on type and severity of pain and evaluate response within appropriate time frame 4. Implement non-pharmacological measures as appropriate and evaluate response 5. Consider cultural and social influences on pain and pain management 6. Notify LIP if interventions ineffective or patient reports new pain 7. Monitor vital signs including pulse ox, end-tidal CO2 based on pain intervention 8. Reassess pain per policy 9. Teach patient or legal abrasives sales representative interventions for comforting Outcome: Progressing Note: Evaluation of progress towards goal: Patient rates pain as tolerable this shift. Patient encouraged to report need for pain medications as needed. Patient assessed for pain using appropriate pain scale. Patient pain goal 0 of 10, medications available. Problem: Safety Goal: Patient will be injury free during hospitalization Description: INTERVENTIONS: 1. Assess patient's risk for falls and implement fall prevention plan of care per policy 2. Provide and maintain a safe environment 3. Proper use of double Identifiers 4. Medication administration using the 5 rights 5. Hand hygiene 6. Specimens are labeled at the bedside 7. Instruct patient/ patient abrasives sales representative about use of safety devices 8. Include patient/ patient abrasives sales representative in decisions related to safety Outcome: Progressing Note: Evaluation of progress towards goal: Safety maintained and call light within reach. No falls or injuries this shift. Bed rails up x2. Orientation reviewed. Hourly rounded maintained. Will continue to maintain safety until end of this shift. Bed alarm maintained. Personal belongings adjacent to bed on table. Call light within reach. Patient identifiers used. Problem: Infection Goal: Absence of infection during hospitalization Description: INTERVENTIONS 1. Assess and monitor for signs and symptoms of infection. 2. Monitor lab/diagnostic results. 3. Monitor all insertion sites i.e., indwelling lines, tubes and drains. 4. Monitor endotracheal (as able) and nasal secretions for changes in amount and color. 5. Administer medications as ordered. 6. Instruct and encourage patient and family to use good hand hygiene technique. 7. Identify and instruct patient/patient abrasives sales representative in use of appropriate isolation precautionsfor identified infection/symptoms. 8. Provide and discuss with patient/patient abrasives sales representative on educational MDRO sheet. 9. Encourage and monitor nutritional status daily and consult machine cell tuber if indicated. 10. Implement neutropenic guidelines as needed. Outcome: Progressing Note: Evaluation of progress towards goal: Labs and vitals monitored for S/S of infection. Problem: Knowledge Deficit Goal: Patient/patient abrasives sales representative demonstrates understanding of disease process, treatment plan,medications, and discharge instructions Description: INTERVENTIONS 1. Complete learning assessment and assess knowledge base 2. Provide teaching at level of understanding 3. Provide teaching via preferred learning method(s) Outcome: Progressing Note: Evaluation of progress towards goal: Assessment of best learning methods and knowledge base completed.Teaching provided at patient's level of understanding, and via patient's preferred learningmethods when applicable. Patient understands care and treatment plan at this time with RN availableif questions arise. Problem: Discharge Planning Goal: Discharge to post-acute care, other facility, or home with appropriate resources Description: Patient's goal is: INTERVENTIONS 1. Conduct assessment to determine patient/family and health care team treatment goals, and need for post-acute services based on payer coverage, community resources, and patient preferences, and barriers to discharge 2. Coordinate with Social work, Care Navigation, and Utilization Review to arrange appropriate level of services according to patient's needs based on patient preference and payer coverage in collaboration with the physician and health care team 3. Address psychosocial, clinical, and financial barriers to discharge as identified in assessment in conjunction with the patient/family and health care team 4. Consult appropriate ancillary services (i.e.. PT/OT/ST, etc) as needed 5. Communicate with and update the patient/family, physician, and health care team regarding progress on the discharge plan 6. Identify discharge learning needs (meds, wound care, etc). 7. Arrange for needed discharge transportation as appropriate Outcome: Progressing Note: Evaluation of progress towards goal: Discharge planning is in progress at this time. Problem: Potential for Compromised Skin Integrity Goal: Skin integrity is maintained or improved Description: Patient's goal is: INTERVENTIONS 1. Perform initial skin assessment on admission and as needed 2. Turn patient every 2 hours and PRN 3. Relieve pressure to bony prominences 4. Avoid shearing 5. Keep skin clean and dry 6. Alternate a full bath with partial baths for elderly 7. Apply lotion/moisturizer on skin 8. Monitor patient's hygiene practices 9. Float heels 10. Collaborate with interdisciplinary team and initiate plans and interventions as needed Outcome: Progressing Note: Evaluation of progress towards goal: Skin assessment performed during shift, patient turning per protocol and PRN, patient's skin is kept clean and dry. Patient positioning self regulated. Goal: Patient's nutritional intake is adequate Description: Patient's goal is: INTERVENTIONS 1. Assess and monitor food intake and supplements, patient food preferences, nausea, vomiting, labs, oral cavity (gums, teeth, tongue, mucosa), proper denture fit, and cultural beliefs 2. Monitor for signs of hypoglycemia and hyperglycemia 3. Collaborate with interdisciplinary team and initiate plan and interventions as ordered 4. Monitor patient's weight 5. Assist patient with meals/food selection 6. Assist patient with eating 7. Allow adequate time for meals 8. Provide pleasant environment during mealtime 9. Increase social contact during mealtimes 10. Plan activities to conserve energy 11. Encourage/perform oral hygiene as appropriate 12. Encourage patient to take dietary supplement as ordered 13. Collaborate with clinical machine cell tuber 14. Include patient/ patient's abrasives sales representative in decisions related to nutrition Outcome: Progressing Note: Evaluation of progress towards goal: Patient has regular diet ordered and oral intake is monitored this shift. Problem: Urinary Incontinence Goal: Perineal skin integrity is maintained or improved Description: INTERVENTIONS 1. Assess genitourinary system, perineal skin, labs (urinalysis), and history of incontinence to include past management, aggravating, and alleviating factors 2. Keep skin clean and dry 3. Apply skin protectant 4. Develop skin care regimen 5. Provide privacy when changing patients incontinence device to maintain their dignity 6. Consider placing an indwelling catheter 7. Collaborate with interdisciplinary team and initiate plans and interventions as needed Outcome: Progressing Note: Evaluation of progress towards goal: Skin assessment performed during shift, patient turning per protocol and PRN, patient's skin is kept clean and dry. Patient positioning self regulated. Problem: Moderate - High Risk Fall Score Description: Fox Fall Score of =/> 25 or indicated by [facility] Assessment Goal: Patient should be free from fall Description: Interventions: 1. [place] to environment 2. Hourly rounds addressing the 4 P's (Pain, Positioning, Possessions, Potty) 3. Clear area of hazards (spills, clutter, electrical cords, unnecessary equipment) 4. Place equipment (bed & TV controls, call light, phone, urinal) within reach 5. Encourage patient to wear glasses and hearing aides as appropriate 6. Maintain bed in lowest position 7. Lock wheels on bed/wheelchair 8. Provide adequate lighting, including night light 9. Assess need for additional bedding, food/fluids, pain med's prior to sleep/routinely 10. Provide gripper slippers or personal non-skid footwear 11. Teach patient and patient abrasives sales representative to maintain environment for safety and engage in all aspects of fall prevention program 12. Remind patient to call for help before getting out of bed 13. Initiate bed/chair/exit alarms supportive devices as appropriate, (chair wedge, no-skid floor mat, raised edge mattress, hip protectors) 14. Locate patient bed assignment for optimal visualization 15. Evaluate and identify Safe Patient Handling Equipment needs 16. Provide supervision when out of bed or chair 17. Utilize gait belt as needed to assist with ambulation 18. Place adaptive equipment (cane, walker) within reach 19. Request patient abrasives sales representative bring adaptive equipment/mobility aids from home or obtain and provide as needed 20. Consult pharmacy regarding effects of med's affecting mobility, cognition, and alternatives 21. Obtain physician order for PT if risk factors associated with mobility are present 22. Obtain physician order for OT as appropriate 23. Utilize diversional activities 24. Educate patient and patient abrasives sales representative how to maintain a safe environment during visitationtimes (notify nurse prior to leaving bedside) 25. Consider appropriateness of medical or non-medical health researcher 26. Set up voiding schedule as appropriate (every 2 hours) Outcome: Progressing Note: Evaluation of progress towards goal: Safety maintained and call light within reach. No falls or injuries this shift. Bed rails up x2. Orientation reviewed. Hourly rounded maintained. Will continue to maintain safety until end of this shift. Bed alarm maintained. Personal belongings adjacent to bed on table. Call light within reach and encouraged to use. Cosigned by Rachel Ibarra RN at 10/23/2024 9:42 PM EDT Associated attestation - Rachel Ibarra RN - 10/23/2024 9:42 PM EDT [employer] [id number] Progress note* Discharge Planning Note - MALENA Garvey - 10/23/2024 2:22 PM EDT Images from the original note were not included. DISCHARGE PLANNING NOTE Kick Boxer met with patient and daughter Elena, introduced self, and explained role. Patient educated onsafe discharge plan. Pt admitted 10/23/2024 with Lumbar compression fracture ([facility]) [S32.000A] per chart review. Consults: neurosurgery History reviewed. No pertinent past medical history. Prior to admission patient was living by himself, with daily assistance from his six children with ADLs and IADLs. Patient has access to a cane and walker but does not use them. Patient uses a showerchair and grab bars. Patient denies need for transportation/ food/ prescription medication assistance resources. PCP: CEDRIC CARR MD The patient receives support from his children and extended family. Drug use: denies Smoking: denies ETOH Use: deneis Readmission risk score is 9 per Epic review. Current discharge plan: Services Requested: Services Requested Patient expects to be discharged to:: SNF Does the patient wish to have family/friend/caregiver involved in their discharge planning?: Yes Does the patient plan to return home to a community setting?: No, patient to discharge to facility-based provider. See Discharge Disposition Discharge Disposition: SNF Does the patient need discharge transportation arranged?: Yes Patient Goals: Patient/Caregiver Goals Patient/Caregiver Goals: Residential Care Skilled [place] Care: Skilled Care (Short Term) Goals: Goals safe discharge (pt-stated) Evaluation of progress towards goal: SNF list provided. Will continue to follow as plan of care develops. Please feel free to reach out for any discharge planning questions. - MALENA GARVEY 10/23/24 2:22 PM [facility]05-14-2025 Progress note* PT/OT/COUNTER TENDER - Angela Cordon PT - 10/23/2024 8:40 AM EDT Physical Therapy Reason For Medical Deferral: Provider input needed, Activity limitations Provider Input Needed: Consults pending (Neurosurgery consult pending.) Activity Limitations: (Per trauma H&P, bedrest until pt seen by neurosurgery.) [facility]05-14-2025 Plan of care note* Plan of Care - Manuela Ram RN - 10/23/2024 7:12 AM EDT Problem: Pain Goal: Patient goal is pain score less than 4, able to rest, and participant in treatment plan as appropriate Description: INTERVENTIONS: 1. Encourage patient or legal abrasives sales representative to report early pain and ask for pain medicine when needed 2. Assess pain using appropriate pain scale and include the scale used when documenting 3. Administer analgesics based on type and severity of pain and evaluate response within appropriate time frame 4. Implement non-pharmacological measures as appropriate and evaluate response 5. Consider cultural and social influences on pain and pain management 6. Notify LIP if interventions ineffective or patient reports new pain 7. Monitor vital signs including pulse ox, end-tidal CO2 based on pain intervention 8. Reassess pain per policy 9. Teach patient or legal abrasives sales representative interventions for comforting Outcome: Progressing Note: Evaluation of progress towards goal: Patient rates pain as tolerable this shift. Patient encouraged to report need for pain medications as needed. Patient assessed for pain using appropriate pain scale. Problem: Safety Goal: Patient will be injury free during hospitalization Description: INTERVENTIONS: 1. Assess patient's risk for falls and implement fall prevention plan of care per policy 2. Provide and maintain a safe environment 3. Proper use of double Identifiers 4. Medication administration using the 5 rights 5. Hand hygiene 6. Specimens are labeled at the bedside 7. Instruct patient/ patient abrasives sales representative about use of safety devices 8. Include patient/ patient abrasives sales representative in decisions related to safety Outcome: Progressing Note: Evaluation of progress towards goal: Safety maintained and call light within reach. No falls or injuries this shift. Bed rails up x2. Orientation reviewed. Hourly rounded maintained. Will continue to maintain safety until end of this shift Problem: Infection Goal: Absence of infection during hospitalization Description: INTERVENTIONS 1. Assess and monitor for signs and symptoms of infection. 2. Monitor lab/diagnostic results. 3. Monitor all insertion sites i.e., indwelling lines, tubes and drains. 4. Monitor endotracheal (as able) and nasal secretions for changes in amount and color. 5. Administer medications as ordered. 6. Instruct and encourage patient and family to use good hand hygiene technique. 7. Identify and instruct patient/patient abrasives sales representative in use of appropriate isolation precautionsfor identified infection/symptoms. 8. Provide and discuss with patient/patient abrasives sales representative on educational MDRO sheet. 9. Encourage and monitor nutritional status daily and consult machine cell tuber if indicated. 10. Implement neutropenic guidelines as needed. Outcome: Progressing Note: Evaluation of progress towards goal: No active infections Problem: Knowledge Deficit Goal: Patient/patient abrasives sales representative demonstrates understanding of disease process, treatment plan,medications, and discharge instructions Description: INTERVENTIONS 1. Complete learning assessment and assess knowledge base 2. Provide teaching at level of understanding 3. Provide teaching via preferred learning method(s) Outcome: Progressing Note: Evaluation of progress towards goal: Assessment of best learning methods and knowledge base completed.Teaching provided at patient's level of understanding, and via patient's preferred learningmethods when applicable. Problem: Discharge Planning Goal: Discharge to post-acute care, other facility, or home with appropriate resources Description: Patient's goal is: INTERVENTIONS 1. Conduct assessment to determine patient/family and health care team treatment goals, and need for post-acute services based on payer coverage, community resources, and patient preferences, and barriers to discharge 2. Coordinate with Social work, Care Navigation, and Utilization Review to arrange appropriate level of services according to patient's needs based on patient preference and payer coverage in collaboration with the physician and health care team 3. Address psychosocial, clinical, and financial barriers to discharge as identified in assessment in conjunction with the patient/family and health care team 4. Consult appropriate ancillary services (i.e.. PT/OT/ST, etc) as needed 5. Communicate with and update the patient/family, physician, and health care team regarding progress on the discharge plan 6. Identify discharge learning needs (meds, wound care, etc). 7. Arrange for needed discharge transportation as appropriate Outcome: Progressing Note: Evaluation of progress towards goal: Discharge planning is in progress at this time. Problem: Potential for Compromised Skin Integrity Goal: Skin integrity is maintained or improved Description: Patient's goal is: INTERVENTIONS 1. Perform initial skin assessment on admission and as needed 2. Turn patient every 2 hours and PRN 3. Relieve pressure to bony prominences 4. Avoid shearing 5. Keep skin clean and dry 6. Alternate a full bath with partial baths for elderly 7. Apply lotion/moisturizer on skin 8. Monitor patient's hygiene practices 9. Float heels 10. Collaborate with interdisciplinary team and initiate plans and interventions as needed Outcome: Progressing Note: Evaluation of progress towards goal: Skin assessment performed during shift, patient turning per protocol and PRN, patient's skin is kept clean and dry. Goal: Patient's nutritional intake is adequate Description: Patient's goal is: INTERVENTIONS 1. Assess and monitor food intake and supplements, patient food preferences, nausea, vomiting, labs, oral cavity (gums, teeth, tongue, mucosa), proper denture fit, and cultural beliefs 2. Monitor for signs of hypoglycemia and hyperglycemia 3. Collaborate with interdisciplinary team and initiate plan and interventions as ordered 4. Monitor patient's weight 5. Assist patient with meals/food selection 6. Assist patient with eating 7. Allow adequate time for meals 8. Provide pleasant environment during mealtime 9. Increase social contact during mealtimes 10. Plan activities to conserve energy 11. Encourage/perform oral hygiene as appropriate 12. Encourage patient to take dietary supplement as ordered 13. Collaborate with clinical machine cell tuber 14. Include patient/ patient's abrasives sales representative in decisions related to nutrition Outcome: Progressing Note: Evaluation of progress towards goal: Nutritional intake is being assessed and monitored. Patient is currently tolerating their ordered diet. Problem: Urinary Incontinence Goal: Perineal skin integrity is maintained or improved Description: INTERVENTIONS 1. Assess genitourinary system, perineal skin, labs (urinalysis), and history of incontinence to include past management, aggravating, and alleviating factors 2. Keep skin clean and dry 3. Apply skin protectant 4. Develop skin care regimen 5. Provide privacy when changing patients incontinence device to maintain their dignity 6. Consider placing an indwelling catheter 7. Collaborate with interdisciplinary team and initiate plans and interventions as needed Outcome: Progressing Note: Evaluation of progress towards goal: system and perineal skin assessed this shift. Skin has been kept clean and dry, skin care regimen has been performed on patient. Problem: Moderate - High Risk Fall Score Description: Fox Fall Score of =/> 25 or indicated by [facility] Assessment Goal: Patient should be free from fall Description: Interventions: 1. [place] to environment 2. Hourly rounds addressing the 4 P's (Pain, Positioning, Possessions, Potty) 3. Clear area of hazards (spills, clutter, electrical cords, unnecessary equipment) 4. Place equipment (bed & TV controls, call light, phone, urinal) within reach 5. Encourage patient to wear glasses and hearing aides as appropriate 6. Maintain bed in lowest position 7. Lock wheels on bed/wheelchair 8. Provide adequate lighting, including night light 9. Assess need for additional bedding, food/fluids, pain med's prior to sleep/routinely 10. Provide gripper slippers or personal non-skid footwear 11. Teach patient and patient abrasives sales representative to maintain environment for safety and engage in all aspects of fall prevention program 12. Remind patient to call for help before getting out of bed 13. Initiate bed/chair/exit alarms supportive devices as appropriate, (chair wedge, no-skid floor mat, raised edge mattress, hip protectors) 14. Locate patient bed assignment for optimal visualization 15. Evaluate and identify Safe Patient Handling Equipment needs 16. Provide supervision when out of bed or chair 17. Utilize gait belt as needed to assist with ambulation 18. Place adaptive equipment (cane, walker) within reach 19. Request patient abrasives sales representative bring adaptive equipment/mobility aids from home or obtain and provide as needed 20. Consult pharmacy regarding effects of med's affecting mobility, cognition, and alternatives 21. Obtain physician order for PT if risk factors associated with mobility are present 22. Obtain physician order for OT as appropriate 23. Utilize diversional activities 24. Educate patient and patient abrasives sales representative how to maintain a safe environment during visitationtimes (notify nurse prior to leaving bedside) 25. Consider appropriateness of medical or non-medical health researcher 26. Set up voiding schedule as appropriate (every 2 hours) Outcome: Progressing Note: Evaluation of progress towards goal: Safety maintained and call light within reach. No falls or injuries this shift. Bed rails up x2. Orientation reviewed. Hourly rounded maintained. Will continue to maintain safety until end of this shift [facility]05-14-2025 Consult note* Ana Luisa Clement PA-C - 10/23/2024 6:48 AM EDTAssociated Order(s): IP CONSULT TO NEUROSURGERY Images from the original note were not included. [facility] [address] [place] [address], [address] [place] [address] * NEUROSURGERY CONSULT NOTE DATE:10/23/2024 PATIENT'S NAME: Nette Hammond PATIENT'S PATIENT'S : 1940 NEUROSURGERY ATTENDING: Dr. Villalpando REASON FOR CONSULT L2, L5 Fx HISTORY OF PRESENT ILLNESS Nette Hammond is a 84 y.o. White or male who presents after falling and found to have aL2 and L5 compression fracture. Patient is on ASA. Patient does not recall why he fell, but was seen on camera losing his balance and falling onto his buttock. Patient was found to have a L2 and L5 fracture, for which NS is consulted. Patient reports back pain. He denies any numnbess/tingling in his extremities. ALLERGIES Allergies Allergen Reactions Sulfa (Sulfonamide Antibiotics) Rash MEDICATIONS Current Facility-Administered Medications: acetaminophen (TYLENOL EXTRA STRENGTH) tablet 1,000 mg, 1,000 mg, oral, Q6H KHLOE, Lakeshia Thomason APRN-ENAMEL BUFFER, 1,000 mg at 10/23/24 0540 dextrose (GLUTOSE) 40 % gel 15 g, 15 g, oral, PRN, Lakeshia Thomason APRN-ENAMEL BUFFER dextrose 5 % (D5W) infusion, 100 mL/hr, intravenous, Continuous PRN, SANDY Donaldson dextrose 50 % in water (D50W) 50% solution 25 mL, 25 mL, intravenous, PRN, SANDY Donaldson glucagon HCL injection 1 mg, 1 mg, intramuscular, PRN, SANDY Donaldson ondansetron (PF) (ZOFRAN) injection 4 mg, 4 mg, intravenous, Q6H PRN, SANDY Donaldson oxyCODONE (ROXICODONE) immediate release tablet 2.5 mg, 2.5 mg, oral, Q4H PRN OR oxyCODONE (ROXICODONE) immediate release tablet 5 mg, 5 mg, oral, Q4H PRN, SANDY Donaldson sennosides-docusate sodium (SENOKOT-S) 8.6-50 mg 2 tablet, 2 tablet, oral, Nightly, SANDY Donaldson sodium chloride 0.9 % flush 3 mL, 3 mL, intravenous, PRN, Lakeshia Thomason APRN-DREW sodium chloride 0.9 % flush 3 mL, 3 mL, intravenous, Q12H KHLOE, SANDY Donaldson PAST MEDICAL AND SURGICAL HISTORY History reviewed. No pertinent past medical history. No past surgical history on file. FAMILY HISTORY History reviewed. No pertinent family history. SOCIAL HISTORY Tobacco: has no history on file for tobacco use. Alcohol: has no history on file for alcohol use. Drugs: has no history on file for drug use. REVIEW OF SYSTEMS A 14 point review of systems was negative other than that documented in the HPI. PHYSICAL EXAMINATION Temp: [37.1 C (98.7 F)] 37.1 C (98.7 F) Pulse: [80-89] 80 Resp: [10-17] 10 BP: (118-159)/(105-120) 118/105 SpO2: [90 %-98 %] 98 % O2 Device: Nasal cannula O2 Flow Rate (L/min): [2 L/min] 2 L/min Physical Exam Constitutional: General: He is not in acute distress. Appearance: Normal appearance. He is not ill-appearing. HENT: Head: Normocephalic. Right Ear: External ear normal. Left Ear: External ear normal. Eyes: Extraocular Movements: Extraocular movements intact. Pupils: Pupils are equal, round, and reactive to light. Cardiovascular: Rate and Rhythm: Normal rate. Pulses: Normal pulses. Pulmonary: Effort: Pulmonary effort is normal. No respiratory distress. Abdominal: Palpations: Abdomen is soft. Tenderness: There is no abdominal tenderness. Musculoskeletal: General: Normal range of motion. Cervical back: Normal range of motion. Neurological: General: No focal deficit present. Mental Status: He is alert and oriented to person, place, and time. Motor: No weakness. Comments: Strength 5/5 BUE/BLE No clonus Psychiatric: Mood and Affect: Mood normal. LABORATORY DATA Results from last 7 days Lab Units 10/23/24 0234 SODIUM mmol/L 139 POTASSIUM mmol/L 4.8 CREATININE mg/dL 1.10 GLUCOSE mg/dL 101* CALCIUM mg/dL 9.9 APTT sec 29 INR 1.0 WBC x10E9/L 8.6 HEMATOCRIT % 46.8 HEMOGLOBIN g/dL 15.8 PLATELETS X10E9/L 162 IMAGING X-ray chest 1 view Result Date: 10/23/2024 XR CHEST 1 VW HISTORY: Trauma COMPARISON: None TECHNIQUE: AP portable semiupright view obtained. FINDINGS: The cardiomediastinal silhouette is within normal limits. Pulmonary vasculature is unremarkable. No focal consolidation. No pneumothorax or pleural effusion. Atherosclerotic calcifications of aortic arch. IMPRESSION: No radiographic evidence of acute cardiopulmonary process. Approved by Resident Telma Waters MD on 10/23/2024 3:05 AM ITelma MD have personally reviewed the image(s) and agree with and/or edited the report Finalized by Telma Clayton MD on 10/23/2024 3:10 AM X-ray pelvis 1 or 2 views Result Date: 10/23/2024 XR PELVIS 1 OR 2 VWS HISTORY: Trauma COMPARISON: None FINDINGS: Single supine AP view obtained. No fracture or dislocation. There is no destructive osseous lesion. Mild degenerative changes of the hip and SI joints. Multilevel degenerative changes of the lumbar spine. Postsurgical clips projecting over the pelvis. Vascular calcifications. IMPRESSION: No acute osseous abnormality. Approved by Resident Telma Waters MD on 10/23/2024 3:05 AM IPatito MD have personally reviewed the image(s) and agree with and/or edited the report Finalized by Patito Jurado MD on10/23/2024 3:08 AM ASSESSMENT 84 year old male s/p fall and found to have L2 and L5 compression fractures. PLAN - CT imaging and patient evaluated by Dr. Villalpando. No acute neurosurgical intervention warranted - MRI lumbar spine pending - LSO brace ordered. To be worn with activity. Does not need to be worn while in bed. - Okay for diet and activity as tolerated. - Okay for PT/OT - PRN pain control - Okay for chemical DVT ppx. - Remainder of care per Trauma Ana Luisa Clement PA-C Neurosurgery [facility] EPIC Chat preferred Patient Touch 10/23/24 6:48 AM To find out which SIMIN is on for the day please go to ON-Call Finder in [place] or [employer] and use log in coComment and search for PTH Neurosurgery Ana Luisa Clement PA-C 10/23/24 0919 Ana Luisa Clement PA-C 10/23/24 0920 [facility]05-14-2025 Consult note* Ana Luisa Clement PA-C - 10/23/2024 6:48 AM EDTAssociated Order(s): IP CONSULT TO NEUROSURGERY Images from the original note were not included. [facility] [address] [place] [address], [address] [place] [address] * NEUROSURGERY CONSULT NOTE DATE:10/23/2024 PATIENT'S NAME: Ntete Hammond PATIENT'S PATIENT'S : 1940 NEUROSURGERY ATTENDING: Dr. Villalpando REASON FOR CONSULT L2, L5 Fx HISTORY OF PRESENT ILLNESS Nette Hammond is a 84 y.o. White or male who presents after falling and found to have aL2 and L5 compression fracture. Patient is on ASA. Patient does not recall why he fell, but was seen on camera losing his balance and falling onto his buttock. Patient was found to have a L2 and L5 fracture, for which NS is consulted. Patient reports back pain. He denies any numnbess/tingling in his extremities. ALLERGIES Allergies Allergen Reactions Sulfa (Sulfonamide Antibiotics) Rash MEDICATIONS Current Facility-Administered Medications: acetaminophen (TYLENOL EXTRA STRENGTH) tablet 1,000 mg, 1,000 mg, oral, Q6H KHLOE, Lakeshia Thomason APRN-DREW, 1,000 mg at 10/23/24 0540 dextrose (GLUTOSE) 40 % gel 15 g, 15 g, oral, PRN, Lakeshia Thomason APRN-DREW dextrose 5 % (D5W) infusion, 100 mL/hr, intravenous, Continuous PRN, SANDY Donaldson dextrose 50 % in water (D50W) 50% solution 25 mL, 25 mL, intravenous, PRN, SANDY Donaldson glucagon HCL injection 1 mg, 1 mg, intramuscular, PRN, SANDY Donaldson ondansetron (PF) (ZOFRAN) injection 4 mg, 4 mg, intravenous, Q6H PRN, SANDY Donaldson oxyCODONE (ROXICODONE) immediate release tablet 2.5 mg, 2.5 mg, oral, Q4H PRN OR oxyCODONE (ROXICODONE) immediate release tablet 5 mg, 5 mg, oral, Q4H PRN, SANDY Donaldson sennosides-docusate sodium (SENOKOT-S) 8.6-50 mg 2 tablet, 2 tablet, oral, Nightly, SANDY Donaldson sodium chloride 0.9 % flush 3 mL, 3 mL, intravenous, PRN, SANDY Donaldson sodium chloride 0.9 % flush 3 mL, 3 mL, intravenous, Q12H CRITICAL ACCESS HOSPITALLakeshia APRN-CNP PAST MEDICAL AND SURGICAL HISTORY History reviewed. No pertinent past medical history. No past surgical history on file. FAMILY HISTORY History reviewed. No pertinent family history. SOCIAL HISTORY Tobacco: has no history on file for tobacco use. Alcohol: has no history on file for alcohol use. Drugs: has no history on file for drug use. REVIEW OF SYSTEMS A 14 point review of systems was negative other than that documented in the HPI. PHYSICAL EXAMINATION Temp: [37.1 C (98.7 F)] 37.1 C (98.7 F) Pulse: [80-89] 80 Resp: [10-17] 10 BP: (118-159)/(105-120) 118/105 SpO2: [90 %-98 %] 98 % O2 Device: Nasal cannula O2 Flow Rate (L/min): [2 L/min] 2 L/min Physical Exam Constitutional: General: He is not in acute distress. Appearance: Normal appearance. He is not ill-appearing. HENT: Head: Normocephalic. Right Ear: External ear normal. Left Ear: External ear normal. Eyes: Extraocular Movements: Extraocular movements intact. Pupils: Pupils are equal, round, and reactive to light. Cardiovascular: Rate and Rhythm: Normal rate. Pulses: Normal pulses. Pulmonary: Effort: Pulmonary effort is normal. No respiratory distress. Abdominal: Palpations: Abdomen is soft. Tenderness: There is no abdominal tenderness. Musculoskeletal: General: Normal range of motion. Cervical back: Normal range of motion. Neurological: General: No focal deficit present. Mental Status: He is alert and oriented to person, place, and time. Motor: No weakness. Comments: Strength 5/5 BUE/BLE No clonus Psychiatric: Mood and Affect: Mood normal. LABORATORY DATA Results from last 7 days Lab Units 10/23/24 0234 SODIUM mmol/L 139 POTASSIUM mmol/L 4.8 CREATININE mg/dL 1.10 GLUCOSE mg/dL 101* CALCIUM mg/dL 9.9 APTT sec 29 INR 1.0 WBC x10E9/L 8.6 HEMATOCRIT % 46.8 HEMOGLOBIN g/dL 15.8 PLATELETS X10E9/L 162 IMAGING X-ray chest 1 view Result Date: 10/23/2024 XR CHEST 1 VW HISTORY: Trauma COMPARISON: None TECHNIQUE: AP portable semiupright view obtained. FINDINGS: The cardiomediastinal silhouette is within normal limits. Pulmonary vasculature is unremarkable. No focal consolidation. No pneumothorax or pleural effusion. Atherosclerotic calcifications of aortic arch. IMPRESSION: No radiographic evidence of acute cardiopulmonary process. Approved by Resident Telma Waters MD on 10/23/2024 3:05 AM ITelma MD have personally reviewed the image(s) and agree with and/or edited the report Finalized by Telma Clayton MD on 10/23/2024 3:10 AM X-ray pelvis 1 or 2 views Result Date: 10/23/2024 XR PELVIS 1 OR 2 VWS HISTORY: Trauma COMPARISON: None FINDINGS: Single supine AP view obtained. No fracture or dislocation. There is no destructive osseous lesion. Mild degenerative changes of the hip and SI joints. Multilevel degenerative changes of the lumbar spine. Postsurgical clips projecting over the pelvis. Vascular calcifications. IMPRESSION: No acute osseous abnormality. Approved by Resident Telma Waters MD on 10/23/2024 3:05 AM Yesica, Patito Jurado MD have personally reviewed the image(s) and agree with and/or edited the report Finalized by Patito Jurado MD on10/23/2024 3:08 AM ASSESSMENT 84 year old male s/p fall and found to have L2 and L5 compression fractures. PLAN - CT imaging and patient evaluated by Dr. Villalpando. No acute neurosurgical intervention warranted - MRI lumbar spine pending - LSO brace ordered. To be worn with activity. Does not need to be worn while in bed. - Okay for diet and activity as tolerated. - Okay for PT/OT - PRN pain control - Okay for chemical DVT ppx. - Remainder of care per Trauma Ana Luisa Clement PA-C Neurosurgery [facility] [place] Chat preferred Patient Touch 10/23/24 6:48 AM To find out which SIMIN is on for the day please go to ON-Call Finder in [place] or [employer] and use log in coComment and search for PTH Neurosurgery Ana Luisa Clement PA-C 10/23/24 0919 Ana Luisa Clement PA-C 10/23/24 0920 [facility] note* PT/OT/COUNTER TENDER - HESHAM Mayo/Kristin - 10/23/2024 6:37 AM EDT Occupational Therapy OT Type of Visit: Medical deferral Reason For Medical Deferral: Activity limitations, Provider input needed Provider Input Needed: Consults pending (neurosurgery) Activity Limitations: (per trauma H&P bedrest until pt seen by neurosurgery. consult pending) [facility]05-14-2025 Plan of care note* Plan of Care - Rachel Ibarra RN - 10/23/2024 6:24 AM EDT Problem: Pain Goal: Patient goal is pain score less than 4, able to rest, and participant in treatment plan as appropriate Description: INTERVENTIONS: 1. Encourage patient or legal abrasives sales representative to report early pain and ask for pain medicine when needed 2. Assess pain using appropriate pain scale and include the scale used when documenting 3. Administer analgesics based on type and severity of pain and evaluate response within appropriate time frame 4. Implement non-pharmacological measures as appropriate and evaluate response 5. Consider cultural and social influences on pain and pain management 6. Notify LIP if interventions ineffective or patient reports new pain 7. Monitor vital signs including pulse ox, end-tidal CO2 based on pain intervention 8. Reassess pain per policy 9. Teach patient or legal abrasives sales representative interventions for comforting Outcome: Progressing Note: Evaluation of progress towards goal: Pt able to rate pain appropriately on scale of 1-10 [facility]05-14-2025 Physician Emergency department Note* Nate Rachel MD - 10/23/2024 2:55 AM EDT Images from the original note were not included. [facility] - EMERGENCY DEPARTMENT Pt Name: Nette Hammond Birthdate: 1940 Chief Complaint: Chief Complaint Patient presents with Fall History of Present Illness: Initial evaluation completed by Dr. Nate Rachel at 2:55 AM. Patient is a 84 y.o. male presentingtoday with a chief complaint of fall. Pt states he could be better. Pt reports he doesn't remember hurting his back in the past. Daughter states pt has a hx of brain bleeds. Daughter states pt has dementia. Past Medical History: History reviewed. No pertinent past medical history. Past Surgical History: No past surgical history on file. Family History: History reviewed. No pertinent family history. Social History: Social History Socioeconomic History Marital status: Social Drivers of Health Food Insecurity: No Food Insecurity (10/23/2024) Hunger Screening Food Insecurity - Worry: Never True Food Insecurity - Inability: Never True Received from [facility] [place] Safety & Environment Review of Systems: Review of Systems Physical Exam: ED Triage Vitals [10/23/24 0231] Temp Heart Rate Resp BP SpO2 37.1 C (98.7 F) 89 17 (!) 159/120 90 % Temp Source Heart Rate Source Patient Position BP Location FiO2 (%) Oral Pulse Ox Semi-fowlers Right arm -- Vitals: 10/23/24 0231 BP: (!) 159/120 Temp: 37.1 C (98.7 F) TempSrc: Oral Pulse: 89 Resp: 17 SpO2: 90% Physical Exam Vitals reviewed. HENT: Head: Normocephalic and atraumatic. Eyes: Conjunctiva/sclera: Conjunctivae normal. Cardiovascular: Rate and Rhythm: Normal rate. Pulmonary: Effort: Pulmonary effort is normal. Breath sounds: Normal breath sounds. Abdominal: General: There is no distension. Palpations: Abdomen is soft. Musculoskeletal: General: Normal range of motion. Cervical back: Normal range of motion and neck supple. Lumbar back: Tenderness (no numbness or weakness) present. Skin: General: Skin is warm and dry. Neurological: General: No focal deficit present. Mental Status: He is alert and oriented to person, place, and time. GCS: GCS eye subscore is 4. GCS verbal subscore is 5. GCS motor subscore is 6. Psychiatric: Comments: Poor memory, has dementia Procedure: Procedures Re-evaluation: Nura Robert (scribe), documented on behalf and in the presence of Dr. Nate Rachel. Medical Decision Making Amount and/or Complexity of Data Reviewed Labs: ordered. Details: Labs notable for: neutrophils absolute 6.9, glucose 101 Radiology: Decision-making details documented in ED Course. Details: Imaging was independently viewed and is notable for unremarkable. However, pending official radiologist read. ED Course: ED Course as of 10/23/24337October 23, 2024336 X-ray pelvis 1 or 2 views [] ED Course User Index [] Nura Mai Clinical Impressions as of 10/23/24337 Lumbar compression fracture ([facility]) . ED Disposition ED Disposition Admit Date/Time MonOctober 23, 2024 2:55 AM Comment Diagnosis: Lumbar compression fracture (CMS-HCC) [[id number]] Admitting Physician: JEWEL VAIL [[id number]] Attending Provider: JEWEL VAIL [[id number]] Estimated length of stay?: >2 midnights/In-patient only procedure/<96 hours Critical Access Certification: I certify that inpatient services are medically necessary for this patient for a duration of greater than two midnights. See H&P and MD Progress Notes for additional information about the patient's course of treatment. . Please note that portions of this note were completed with a voice recognition program. Efforts were made to edit the dictations but occasionally words are mis-transcribed. Nura Mai 10/23/24 0304 Nura Mai 10/23/24 0338 Nate Rachel MD 10/23/24 0342 [facility]05-14-2025 Emergency department Note* Nate Rachel MD - 10/23/2024 2:55 AM EDT Images from the original note were not included. [facility] - EMERGENCY DEPARTMENT Pt Name: Nette Hammond Birthdate: 1940 Chief Complaint: Chief Complaint Patient presents with Fall History of Present Illness: Initial evaluation completed by Dr. Nate Rachel at 2:55 AM. Patient is a 84 y.o. male presentingtoday with a chief complaint of fall. Pt states he could be better. Pt reports he doesn't remember hurting his back in the past. Daughter states pt has a hx of brain bleeds. Daughter states pt has dementia. Past Medical History: History reviewed. No pertinent past medical history. Past Surgical History: No past surgical history on file. Family History: History reviewed. No pertinent family history. Social History: Social History Socioeconomic History Marital status: Social Drivers of Health Food Insecurity: No Food Insecurity (10/23/2024) Hunger Screening Food Insecurity - Worry: Never True Food Insecurity - Inability: Never True Received from [facility] [place] Safety & Environment Review of Systems: Review of Systems Physical Exam: ED Triage Vitals [10/23/24 0231] Temp Heart Rate Resp BP SpO2 37.1 C (98.7 F) 89 17 (!) 159/120 90 % Temp Source Heart Rate Source Patient Position BP Location FiO2 (%) Oral Pulse Ox Semi-fowlers Right arm -- Vitals: 10/23/24 0231 BP: (!) 159/120 Temp: 37.1 C (98.7 F) TempSrc: Oral Pulse: 89 Resp: 17 SpO2: 90% Physical Exam Vitals reviewed. HENT: Head: Normocephalic and atraumatic. Eyes: Conjunctiva/sclera: Conjunctivae normal. Cardiovascular: Rate and Rhythm: Normal rate. Pulmonary: Effort: Pulmonary effort is normal. Breath sounds: Normal breath sounds. Abdominal: General: There is no distension. Palpations: Abdomen is soft. Musculoskeletal: General: Normal range of motion. Cervical back: Normal range of motion and neck supple. Lumbar back: Tenderness (no numbness or weakness) present. Skin: General: Skin is warm and dry. Neurological: General: No focal deficit present. Mental Status: He is alert and oriented to person, place, and time. GCS: GCS eye subscore is 4. GCS verbal subscore is 5. GCS motor subscore is 6. Psychiatric: Comments: Poor memory, has dementia Procedure: Procedures Re-evaluation: Nura Robert (scribe), documented on behalf and in the presence of Dr. Nate Rachel. Medical Decision Making Amount and/or Complexity of Data Reviewed Labs: ordered. Details: Labs notable for: neutrophils absolute 6.9, glucose 101 Radiology: Decision-making details documented in ED Course. Details: Imaging was independently viewed and is notable for unremarkable. However, pending official radiologist read. ED Course: ED Course as of 10/23/24337October 23, 2024 0337 X-ray pelvis 1 or 2 views [] ED Course User Index [] Nura Mai Clinical Impressions as of 10/23/24337 Lumbar compression fracture ([facility]) . ED Disposition ED Disposition Admit Date/Time MonOctober 23, 2024 2:55 AM Comment Diagnosis: Lumbar compression fracture ([facility]) [299427] Admitting Physician: JEWEL VAIL [[id number]] Attending Provider: JEWEL VAIL [[id number]] Estimated length of stay?: >2 midnights/In-patient only procedure/<96 hours Critical Access Certification: I certify that inpatient services are medically necessary for this patient for a duration of greater than two midnights. See H&P and MD Progress Notes for additional information about the patient's course of treatment. . Please note that portions of this note were completed with a voice recognition program. Efforts were made to edit the dictations but occasionally words are mis-transcribed. Nura Mai 10/23/24 0304 Nura Mai 10/23/24 0338 Nate Rachel MD 10/23/24 0342 * Zuleyka Mooney RN - 10/23/2024 2:32 AM EDT EMS//Ground from [facility] Nette Hammond 84 yo 1940 male with dementia. S/p Fall no LOC Compression fractures L2, L5. Pain when he stands. Dr Vail accepted as a trauma consult. Morphine given 1 hr risk management analyst * Lisy Pretty RN - 10/23/2024 2:10 AM EDT Bed: 18 Expected date: Expected time: Means of arrival: Other EMS Transport ([facility]) Comments: Ground from [facility] Nette Hammond 84 yo 1940 male with dementia. S/p Fall no LOC Compression fractures L2, L5. Pain when he stands. Dr Vail accepted as a trauma consult. Stable Vitals 20 in left AC 2mg morphine prior to departure EMS Report: Resting comfortably Fracture L2, L5 Morphine just before leaving approx 1 hour ago 139/109 80s 98%RA 16 ETA 5 mins documented in this encounterC[facility] Emergency department Triage note* Zuleyka Mooney RN - 10/23/2024 2:32 AM EDT EMS//Ground from [facility] Nette Hammond 84 yo 1940 male with dementia. S/p Fall no LOC Compression fractures L2, L5. Pain when he stands. Dr Vail accepted as a trauma consult. Morphine given 1 hr risk management analyst [facility]05-14-2025 History and physical note* GENOVEVA Baldwin - 10/23/2024 2:30 AM EDT Images from the original note were not included. Trauma Surgery History & Physical Examination /Consultation Note Patient: Nette Hammond Date of : 1940 Estimated time of injury: 1600 LOC: No Transport: EMS from [place] Trauma level: Trauma Consult Work related: No History of Present Illness Nette Hammond is an 84 y.o. male with PMH significant for dementia, HTN, HLD, AFib s/p watchman and on ASA81 who fell yesterday afternoon. At baseline, patient has issues with short term memory anddoes not remember falling. He lives alone but, per daughter, is heavily monitored with cameras and help comes over often. Yesterday, daughter saw on one of the home cameras that patient stood up fromhis lift chair, lost his balance, and fell on his buttocks. She does not believe that he hit his head nor lost consciousness. He was able to get up on his own. When his daughter came over for dinner later that evening, he was complaining of back pain with movement, which is what prompted her to check the home cameras. [facility] where imaging was performed and identified L2 and L5 vertebral body fractures. He was then transferred to [facility] for trauma evaluation anddefinitive management. On exam, patient is pleasantly confused and making jokes. Per daughter, he does become confused when he wakes up and when he is out of his environment. At this time, patient denies back pain and numbness/ tingling in extremities. Independently reviewed external notes from outside hospital when available. Past Medical History No past medical history on file. Trauma Past Surgical History No past surgical history on file. Travel Screening No screening recorded since 10/20/24 0210 Travel History Travel since 09/23/24 No documented travel since 09/23/24 Family History No family history on file. Review of Systems Review of Systems (Positive Findings in Bold) Const: Fever / Chills / Weight Loss / Recent falls Eyes: Blurry vision/ Vision Change HEENT: MARTINES / Neck Pain / Otorrhea / Rhinorrhea RESP: SOB / Cough / Wheeze CARDIAC: CP / Palpitations / Edema GI: N / V / Abd Pain / Diarrhea / Constipation : Hematuria / Discharge MS: Weakness / Pain ( back with movement) / Dec ROM Integ: Rashes / Poorly healing wounds Neuro: MARTINES / Gait imbalance / Increased confusion / Numbness / Tingling / Paralysis Psych: Depression / Anxiety / Hallucinations / Suicide Allergies Not on File Home Meds Prior to Admission medications Not on File Immunizatons There is no immunization history on file for this patient. Last Tetanus: Unsure Social History Social History Socioeconomic History Marital status: Not on file Spouse name: Not on file Number of children: Not on file Years of education: Not on file Highest education level: Not on file Occupational History Not on file Tobacco Use Smoking status: Not on file Smokeless tobacco: Not on file Substance and Sexual Activity Alcohol use: Not on file Drug use: Not on file Sexual activity: Not on file Other Topics Concern Not on file Social History Narrative Not on file Social Drivers of Health Financial Resource Strain: Not on file Food Insecurity: Not on file Transportation Needs: Not on file Physical Activity: Not on file Stress: Not on file Social Connections: Not on file Interpersonal Safety: Not on file Housing Instability: Not on file Substance Use: ETOH No Tobacco No Drugs No Support: lives alone, daughter lives nearby, cameras in house 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 Temperature Range Last 24 Hours : No data recorded Admit Weight: There is no height or weight on file to calculate BMI. Last Weights: Wt Readings from Last 3 Encounters: No data found for Wt I/O's:No intake or output data in the 24 hours ending 10/23/24 0230 No data recorded Last 24 hr Labs No results found for this or any previous visit (from the past 24 hours). Cultures: Microbiology Results (last 21 days) No results found for the last 504 hours. Independently reviewed trauma specific results. Radiology Results Bedside FAST exam results: Not performed FAST completed by: N/A Imaging at [place]: CTH: (-) CTCspine: (-) CT LSpine: acute superior endplate compression fractures of L2 and L5 vertebral bodies without lossof significant height and without retropulsion Independently reviewed radiographic studies to evaluate for acute traumatic injuries. Physical Exam Physical Exam Airway: Intact Breathing: Intact Circulation: Intact GCS: 15 Eye: Verbal Motor 1 Does not open 1 No sounds 1 No movement 2 Opens to pain 2 Incomprehensible sounds 2 Extension w/pain 3 Opens to voice 3 Incoherent words 3 Flex w/ pain 4 Spontaneous 4 Confused / disoriented 4 Withdraw from pain 5 Oriented 5 Localizes to painful stimuli 6 Obeys commands General: No distress HEENT: Atraumatic EOMI PERRL 3mm, CN II-XII: grossly intact No Malocclusion No drainage from ears bilaterally Battles sign Absent Nares patent Dentition intact Neck: Trachea Midline Non Tender to palpation No pain with Flex / Ext / Lat Flex / Rotation, Axial Load & distraction Chest: No Chest wall tenderness, No Crepitus, No Bruising Lungs:Good air movement B, CTA B, No Ronchi, No Wheeze Unlabored, nasal cannula 2 lpm Heart: Heart tones S1/S2, No Murmur noted, Regular Abd: Soft, No guarding, No rigidity No Bruising Non Tender RUQ / LUQ / RLQ / LLQ Pelvis: Iliac crest-Non tender to compression Symphysis pubis- Non tender to compression Penis / Scrotum / Peroneal: No wounds noted Rectum: Not performed Back: T Spine- non tender to palpation L Spine- non tender to palpation; pain with sitting up No wounds / ecchymosis Extremities: RUE: 5/5 strength LUE: 5/5 strength RLE: 5/5 strength LLE: 5/5 strength Pulses 2+ x 4 Intact to light touch No calf/thigh tenderness Neuro: Alert, pleasant, appropriate Oriented to person. Disoriented to time and place CAGE-AID Amy Conti [place] [facility] [employer] 1994 Have you felt the need to cut down on your drinking or drug use? no Do you feel annoyed by people complaining about your drinking or drug use? no Do you ever feel guilty about your drinking or drug use? no Have you ever had a drink or used drugs first thing in the morning to steady your nerves or to get rid of a hangover? no Scorin or more positive terms indicate the need for a brief intervention or social work consult. ASSESSMENT / PLAN Nette Hammond 84 y.o. male Mechanism: Mechanical fall Tertiary Examination: To be completed within 24hrs of admission if possible. Injuries/Traumatic issues: 1.Mechanical fall -TraumaGram -CT Head -CT Cervical spine -CXR -PXR -CT L Spine -TraumaLabs -CMP -CBC -Coags, PT/INR -Amylase -Lipase -Ethanol -Urine Drug screen -Urinalysis 2. Acute post traumatic pain - multimodal pain regimen ordered on admission - reassess for adequate pain control daily and change regimen as appropriate 3. L2, L5 superior endplate compression fractures - Consult NSx, Zakeri - bedrest until evaluated by NSx Comorbidities/Medical issues: Neuro- dementia, depression/anxiety - takes SSRI and xanax at least once daily per daughter - resume home meds once reconciled Pulm- Cardio- AFib s/p watchman, currently on ASA81 mg daily - hold at this time GI- - Heme- ID- MSK- Endo- Lytes- Lines and Tubes: PIV Nutrition: Reg Prophylaxis: EPCs, no chem dvt ppx d/t acute trauma Disposition: Admit to trauma stepdown Medical Decision Making: High ER Procedures: 1. None per trauma CONSULTATIONS Consultations:Neurosurgery (NSx) at 0257 Did consultants call back in 10min: yes Trauma Team Present: Katelin RUSSELL and Edvin BARROW Trauma Team Arrival time: 0230 Attending: Dr. Jewel Vail MD saw patient on the floor Palmira Pardo PA-C [facility] Trauma Services and Critical Care can be reached via Patient Touch Pager: [phone] GENOVEVA Baldwin 10/23/243 Cosigned by Jewel Vail MD at 10/23/2024 7:07 AM EDT [facility] Phone: [phone] History and physical note* GENOVEVA Baldwin - 10/23/2024 2:30 AM EDT Images from the original note were not included. Trauma Surgery History & Physical Examination /Consultation Note Patient: Nette Hammond Date of : 1940 Estimated time of injury: 1600 LOC: No Transport: EMS from [place] Trauma level: Trauma Consult Work related: No History of Present Illness Nette Hammond is an 84 y.o. male with PMH significant for dementia, HTN, HLD, AFib s/p watchman and on ASA81 who fell yesterday afternoon. At baseline, patient has issues with short term memory anddoes not remember falling. He lives alone but, per daughter, is heavily monitored with cameras and help comes over often. Yesterday, daughter saw on one of the home cameras that patient stood up fromhis lift chair, lost his balance, and fell on his buttocks. She does not believe that he hit his head nor lost consciousness. He was able to get up on his own. When his daughter came over for dinner later that evening, he was complaining of back pain with movement, which is what prompted her to check the home cameras. Patient was then [facility] where imaging was performed and identified L2 and L5 vertebral body fractures. He was then transferred to [facility] for trauma evaluation anddefinitive management. On exam, patient is pleasantly confused and making jokes. Per daughter, he does become confused when he wakes up and when he is out of his environment. At this time, patient denies back pain and numbness/ tingling in extremities. Independently reviewed external notes from outside hospital when available. Past Medical History No past medical history on file. Trauma Past Surgical History No past surgical history on file. Travel Screening No screening recorded since 10/20/24 0210 Travel History Travel since 09/23/24 No documented travel since 09/23/24 Family History No family history on file. Review of Systems Review of Systems (Positive Findings in Bold) Const: Fever / Chills / Weight Loss / Recent falls Eyes: Blurry vision/ Vision Change HEENT: MARTINES / Neck Pain / Otorrhea / Rhinorrhea RESP: SOB / Cough / Wheeze CARDIAC: CP / Palpitations / Edema GI: N / V / Abd Pain / Diarrhea / Constipation : Hematuria / Discharge MS: Weakness / Pain ( back with movement) / Dec ROM Integ: Rashes / Poorly healing wounds Neuro: MARTINES / Gait imbalance / Increased confusion / Numbness / Tingling / Paralysis Psych: Depression / Anxiety / Hallucinations / Suicide Allergies Not on File Home Meds Prior to Admission medications Not on File Immunizatons There is no immunization history on file for this patient. Last Tetanus: Unsure Social History Social History Socioeconomic History Marital status: Not on file Spouse name: Not on file Number of children: Not on file Years of education: Not on file Highest education level: Not on file Occupational History Not on file Tobacco Use Smoking status: Not on file Smokeless tobacco: Not on file Substance and Sexual Activity Alcohol use: Not on file Drug use: Not on file Sexual activity: Not on file Other Topics Concern Not on file Social History Narrative Not on file Social Drivers of Health Financial Resource Strain: Not on file Food Insecurity: Not on file Transportation Needs: Not on file Physical Activity: Not on file Stress: Not on file Social Connections: Not on file Interpersonal Safety: Not on file Housing Instability: Not on file Substance Use: ETOH No Tobacco No Drugs No Support: lives alone, daughter lives nearby, cameras in house 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 Temperature Range Last 24 Hours : No data recorded Admit Weight: There is no height or weight on file to calculate BMI. Last Weights: Wt Readings from Last 3 Encounters: No data found for Wt I/O's:No intake or output data in the 24 hours ending 10/23/24 0230 No data recorded Last 24 hr Labs No results found for this or any previous visit (from the past 24 hours). Cultures: Microbiology Results (last 21 days) No results found for the last 504 hours. Independently reviewed trauma specific results. Radiology Results Bedside FAST exam results: Not performed FAST completed by: N/A Imaging at [place]: CTH: (-) CTCspine: (-) CT LSpine: acute superior endplate compression fractures of L2 and L5 vertebral bodies without lossof significant height and without retropulsion Independently reviewed radiographic studies to evaluate for acute traumatic injuries. Physical Exam Physical Exam Airway: Intact Breathing: Intact Circulation: Intact GCS: 15 Eye: Verbal Motor 1 Does not open 1 No sounds 1 No movement 2 Opens to pain 2 Incomprehensible sounds 2 Extension w/pain 3 Opens to voice 3 Incoherent words 3 Flex w/ pain 4 Spontaneous 4 Confused / disoriented 4 Withdraw from pain 5 Oriented 5 Localizes to painful stimuli 6 Obeys commands General: No distress HEENT: Atraumatic EOMI PERRL 3mm, CN II-XII: grossly intact No Malocclusion No drainage from ears bilaterally Battles sign Absent Nares patent Dentition intact Neck: Trachea Midline Non Tender to palpation No pain with Flex / Ext / Lat Flex / Rotation, Axial Load & distraction Chest: No Chest wall tenderness, No Crepitus, No Bruising Lungs:Good air movement B, CTA B, No Ronchi, No Wheeze Unlabored, nasal cannula 2 lpm Heart: Heart tones S1/S2, No Murmur noted, Regular Abd: Soft, No guarding, No rigidity No Bruising Non Tender RUQ / LUQ / RLQ / LLQ Pelvis: Iliac crest-Non tender to compression Symphysis pubis- Non tender to compression Penis / Scrotum / Peroneal: No wounds noted Rectum: Not performed Back: T Spine- non tender to palpation L Spine- non tender to palpation; pain with sitting up No wounds / ecchymosis Extremities: RUE: 5/5 strength LUE: 5/5 strength RLE: 5/5 strength LLE: 5/5 strength Pulses 2+ x 4 Intact to light touch No calf/thigh tenderness Neuro: Alert, pleasant, appropriate Oriented to person. Disoriented to time and place CAGE-AID Amy Conti Med Journal 1994 Have you felt the need to cut down on your drinking or drug use? no Do you feel annoyed by people complaining about your drinking or drug use? no Do you ever feel guilty about your drinking or drug use? no Have you ever had a drink or used drugs first thing in the morning to steady your nerves or to get rid of a hangover? no Scorin or more positive terms indicate the need for a brief intervention or social work consult. ASSESSMENT / PLAN Nette Hammond 84 y.o. male Mechanism: Mechanical fall Tertiary Examination: To be completed within 24hrs of admission if possible. Injuries/Traumatic issues: 1.Mechanical fall -TraumaGram -CT Head -CT Cervical spine -CXR -PXR -CT L Spine -TraumaLabs -CMP -CBC -Coags, PT/INR -Amylase -Lipase -Ethanol -Urine Drug screen -Urinalysis 2. Acute post traumatic pain - multimodal pain regimen ordered on admission - reassess for adequate pain control daily and change regimen as appropriate 3. L2, L5 superior endplate compression fractures - Consult NSx, Irasema - bedrest until evaluated by NSx Comorbidities/Medical issues: Neuro- dementia, depression/anxiety - takes SSRI and xanax at least once daily per daughter - resume home meds once reconciled Pulm- Cardio- AFib s/p watchman, currently on ASA81 mg daily - hold at this time GI- - Heme- ID- MSK- Endo- Lytes- Lines and Tubes: PIV Nutrition: Reg Prophylaxis: EPCs, no chem dvt ppx d/t acute trauma Disposition: Admit to trauma stepdown Medical Decision Making: High ER Procedures: 1. None per trauma CONSULTATIONS Consultations:Neurosurgery (NSx) at 0257 Did consultants call back in 10min: yes Trauma Team Present: Katelin RUSSELL and Edvin BARROW Trauma Team Arrival time: 0230 Attending: Dr. Jewel Vail MD saw patient on the floor [facility] can be reached via Patient Touch Pager: [phone] GENOVEVA Baldwin 10/23/24 031 Cosigned by Jewel Vail MD at 10/23/2024 7:07 AM EDT documented in this encounterHolden [facility] HospitalYY, Inc.[facility] Emergency department Note* Lisy Pretty RN - 10/23/2024 2:10 AM EDT Bed: 18 Expected date: Expected time: Means of arrival: Other EMS Transport ([facility]) Comments: Ground from [facility] Nette Hammond 84 yo 1940 male with dementia. S/p Fall no LOC Compression fractures L2, L5. Pain when he stands. Dr Vail accepted as a trauma consult. Stable Vitals 20 in left AC 2mg morphine prior to departure EMS Report: Resting comfortably Fracture L2, L5 Morphine just before leaving approx 1 hour ago 139/109 80s 98%RA 16 ETA 5 mins [facility] History of Present illness Narrative* Cedric Carr MD - 09/11/2024 2:00 PM EDT Images from the original note were not included. Patient ID: Nette Hammond is a 84 y.o. male who presents for: ER Follow up, laceration Flowsheet Row Patient Outreach from 09/05/2024 in [facility] with Mel Gann RN Hospital Information ED, Hospital or Residential Facility Discharge? ED Patient has been contacted within 2 days of being seen in the ED Yes Diagnosis laceration left wrist Discharge Date 09/03/24 Discharged To: Home Setting Discharge [facility] Engagement Call Start Time 1052 Admission Date 09/03/24 Medications Discharge medications reviewed and reconciled from hospital? Not applicable Does the patient have all medications ordered at discharge? Not applicable Nursing Interventions No intervention needed Is the patient taking all medications as directed (includes completed medication regime)? Yes Appointments Does the patient have a primary care provider? Yes [4/ at 2 pm] Nursing Interventions Verified appointment [...] applied. Remove in 8-10 days. Scheduled for 4/2 at2 pm. Test: XRay left wrist. Updated Tetanus. immunization record updated. Call End Time 1108 Review of Systems No pain or paresthesias Objective At the base of the left hand or distal portion of the wrist there is a small laceration with 2 rahul. It is well approximated and healing well. No signs of secondary infection. Driggs removed. Visit Vitals Ht 5' 8 Wt [...] 1 (one) time each day at the sametime. losartan (Cozaar) 50 MG tablet Take 1 [...] removal Removed without difficulty. documented in this encounterScotland County Memorial [id number] History of Present illness Narrative* Cedric Carr MD - 05/20/2024 11:30 AM EST Images from the original note were not [...] is patient, son, and daughter. Patient lives alone.The family and the patient identify problems with [...] is not exercising and is adherent to alow-salt diet. Blood pressure is not well checking [...] for agitation. Negative for behavioral problems, sleep disturbanceand suicidal ideas. The patient is not nervous/anxious. [...] 1 (one) time each day at the sametime. losartan (Cozaar) 50 MG tablet Take 1 [...] as anxiety or agitation since his mother hasbeen placed in the group home. These medications are also cross treating [...] problems if not taken the correct way, ortaken with another drug or food item that [...] mg) by mouth Daily Dispense: 90 tablet; Refill:1 - amLODIPine (Norvasc) 5 MG tablet; Take 1 tablet (5 mg) by mouth Daily Dispense: 90 tablet; Refill: 1 documented in this encounterScotland County Memorial [id number] Telephone encounter Note* Telephone Encounter - Opal Mcconnell - 04/25/2024 1:26 PM EST Appt moved to May 20 [facility] HospitalTyzakxwaml03-89-2251 Miscellaneous Notes* Telephone Encounter - Opal Mcconnell - 04/25/2024 1:26 PM EST Appt moved to May 20 * Telephone Encounter - Amanda Dave MA - 04/25/2024 12:36 PM EST Jackeline Monday will not work for his OV because sent 30 days of his xanax on 04/23. Needs to be inDec. * Telephone Encounter - Cedric Carr MD - 04/24/2024 4:52 PM EST Full RX sent * Telephone Encounter - Opal Mcconnell - 04/24/2024 3:28 PM EST Denny Lenz called and scheduled his dad for next week. His sister had called for a couple refills but did not get them all. Denny May also is out of Losartan and Amlodepine. He will be out before his appointment on Monday and they are asking for refills. documented in this encounterScotland County Memorial [id number] Telephone encounter Note* Telephone Encounter - Amanda Dave MA - 04/25/2024 12:36 PM EST Jackeline Monday will not work for his OV because sent 30 days of his xanax on 04/23. Needs to be inDec. [facility] HospitalRiyeigbtca89-78-0868 Telephone encounter Note* Telephone Encounter - Cedric Carr MD - 04/24/2024 4:52 PM EST Full RX sent [facility] [id number] Telephone encounter Note* Telephone Encounter - Opal Mcconnell - 04/24/2024 3:28 PM EST Denny Lenz called and scheduled his dad for next week. His sister had called for a couple refills but did not get them all. Denny May also is out of Losartan and Amlodepine. He will be out before his appointment on Monday and they are asking for refills. [facility] [id number] History of Present illness Narrative* Cedric Carr MD - 07/24/2023 11:30 AM EST Patient ID: Nette Hammond is a 83 [...] his son had to help him stand. Hewas somewhat tremulous in his legs. When I asked him to walk a little bit his steps were very shortand he appeared insecure. During sitting I examined his quadriceps and I can easily get on hand around his distal thigh with space left over. He is unable to significantly pushed me away or pull me ba ck with his hamstrings in either leg although [...] that his has been placed in a nursing homehe seems to have significantly less agitation and previous. He is also sleeping longer now. No evidence of delusions or hallucinations. I discussed with the son that let's go ahead and try and back th e stroke down to a half tablet. They [...] least a moderate risk of morbidity from themedications themselves creating at least a moderate degree of evaluation and management. This was done today and reviewed with the patient. [facility] https://www.ncbi.nlm.nih.gov/pmc/articles/IJP5753592/. 2015; 13: 74. Published online 2014Sep 16. https://www.ncbi.nlm.nih.gov/pubmed/65857820 The rising tide of polypharmacy and drug-drug interactions: population database analysis 3822-6271 https://www.ncbi.nlm.nih.gov/pmc/articles/UOL0044317/. 5. Sourav K, Rachelle SW, Yudith M, [...] above will decrease dose. documented in this encounterScotland County Memorial HospitalYkiuvhrtct65-00-1050 NoteUT Cardiology [facility] Subjective Nette Hammond Sr. 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 therapy Lung granuloma [...] fibrillation status post a watchman procedure in [place] [He is not sure why he needed [...] Rfl: 11 cholecalciferol (Cristela (more content not included)...[facility]03-15-2023 NoteRenal condition is StableUnMercy [facility]03-15-2023 NoteRate well controlled continue metoprolol, no anticoagulation status post watchman implantationUnMercy Health [facility]03-15-2023 Note Hypertension is Well controlled 136/87 and daughter states blood pressure is even better at home Continue lisinopril, hydralazine and MetoprololUnMercy Health [facility]03-15-2023 NoteNo anticoagulation status post watchman implantation [facility]03-15-2023 NoteCoronary artery disease is Stable Without any concerning symptoms Continue goal-directed medical therapy with Plavix, metoprolol and Lipitor continue risk factor modifications- heart healthy diet, regular exercise as tolerated and continue all medications.[facility] 08-24-2022 NotePt is here for 8 month F/U Review of Systems All other systems reviewed and are negative.[facility] 08-24-2022 NoteUTP CARDIOLOGY PROGRESS NOTE HPI: Nette Hammond Sr. is a 82 y.o. male here for Routine follow-up of CAD status post PCI, proximal atrial fib, history of MN, hyperlipidemia, hypertension and CKD Currently denies chest [...] also discussed that given his an acute MN episode in October 2020, he will need [...] Cholesterol 116, HDL 40, triglyceride 94 LDL 57.0-Dhsn-fmmckofuae Last lab values have been reviewed CV Testing: Cath 11/02/2020 Echo 11/02/2020- LV systolic function normal ejection fraction 55%. Systolic dysfunction RV is normal size and normal systolic function Left atrium is normal size Mild tricuspid regurgitation No echocardiogram results found for the past 12 domonique (more content not included)...[facility]05-25-2021 NoteMR#: [id number] I [facility] Pt. Name: Nette Hammond Sr [...] history of bradycardia. [facility] discomfort. Apparently, he was walking outside when he developed chest discomfort, which is unusual for him, described as a pressure in the mid of the chest with no radiation. Initial evaluation in [facility] showed elevated troponins and was sent [...] by: Bar Hathaway MD 11/04/2020 04:05 P Bar Hathaway MD Date Dict: 11/03/2020/12:20 P/Bar Hathaway MD Date Trans: 11/03/2020 01:59 P/mmo [id number] cc: Cedric Carr M.D. [address] [place] [address] [facility] [id number] Braeden Schaefer M.D. [address] [facility] [address]vhMemorial Health SystemEvaluation note* Diagnosis Vascular dementia without behavioral disturbance (CMS/HCC) White matter disease Chronic fatigue Other malaise and fatigue Polypharmacy Issue of repeat prescriptions Generalized weakness At risk for falling Personal history of fall Moderate major depression (CMS/HCC) Major depressive disorder, single episode, moderate documented in this encounter [facility] note* Diagnosis Benign essential hypertension (CMS/HCC) Essential hypertension, benign documented in this encounter [facility] HealthcareEvaluation note* Diagnosis Acute pain of left shoulder- Primary 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) Moderate major depression (CMS/HCC) Major depressive disorder, single episode, moderate Generalized anxiety disorder (CMS/HCC) Generalized anxiety disorder Controlled substance agreement signed Fall, sequela Benign essential hypertension (CMS/HCC) Essential hypertension, benign documented in this encounter [facility] HealthcareEvaluation note* Diagnosis Laceration of left wrist, subsequent encounter Encounter for examination following treatment at hospital Encounter for staple removal documented in this encounter [facility] note* Diagnosis Lumbar compression fracture (CMS-HCC)- Primary Closed fracture of lumbar vertebra without mention of spinal cord injury Lumbar compression fracture (CMS-HCC) Closed fracture of lumbar vertebra without mention of spinal cord injury documented 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, unspecified cerebrovascular disease type, unspecified hemiplegia type (HCC) Encounter for examination following treatment at hospital Controlled substance agreement signed Benign essential hypertension Essential hypertension, benign Chronic kidney disease, stage 3a ([facility]-HCC) documented in this encounter [facility] Assessments DiagnosisPAF (paroxysmal atrial fibrillation) (HCC) Atrial fibrillation DiagnosisPAF (paroxysmal atrial fibrillation) (HCC) - Primary Atrial fibrillation DiagnosisPAF (paroxysmal atrial fibrillation) (HCC) Atrial fibrillation MENDEZ (acute kidney injury) (HCC)DiagnosisPAF (paroxysmal atrial fibrillation) (HCC) Atrial fibrillation Diagnosis PAF (paroxysmal atrial [...] FoundNo Family History Records Found Advance Directives Code StatusDate ActivatedDate InactivatedCommentsFull Code02/22/2018 10:31 AMFull Code02/22/2018 8:23 AM02/22/2018 10:31 AMTypeDate RecordedPatient Ship Construction Teacher ExplanationAdvance Directives and Living Will03/28/2019 1:20 PMTypeDate Recorded Patient RepresentativeExplanationAdvance Directives and Living WillPower of AttorneyCode StatusDate ActivatedDate InactivatedCommentsFull Code03/31/2016 9:24 PM10 2:27 PMFull Code12/26/2015 7:02 PM12/31/2015 5:47 PMTypeDate RecordedPatient RepresentativeExplanationACP-Advance DirectiveACP-Power of AttorneyTypeDate RecordedPatient RepresentativeExplanationACP-Advance Directive ACP-Power of AttorneyCode StatusDate ActivatedDate InactivatedCommentsFull Code 03/31/2016 9:24 PM10 2:27 PMFull Code12/26/2015 7:02 PM12/31/2015 5:47 PM TypeDate RecordedPatient RepresentativeExplanationAdvance Directives and Living WillPower of AttorneyTypeDate RecordedPatient RepresentativeExplanationPower of Attorney08/28/2023 7:42 [id number] Power Of AttorneyAdvance Directives and Living Will08/28/2023 7:33 [id number] Advance Directive Discharge Instructions * Austen Jeff, DREW - 02/22/2018 Successful Left Atrial Appendage [...] swallowing or have severe throat pain. Call [phone]. A scratchy throat liz normal side effect [...] through Care Everywhere. * ECHOCARDIOGRAM: TRANSESOPHAGEAL: POST-OP (AMERICAN) in this encounter History of Present Illness * Jennifer Tan RN - 09/12/2018 8:20 AM EDT Office notes and lab results routed to PCP and judicial clerk. in this encounter* Jennifer Tan RN - 09/12/2018 3:46 PM EDT Spoke with pt's son Meño and let him be aware of Nette' creatine level. Angela Osorio NP would like him to follow up with his PCP. Son verbalized understanding. in this encounter* Lizzie Nichole RN - 03/28/2019 1:47 PM EDT Nette arrived ambulatory with his and son for 1 year s/p [facility] clinic visit. He had no hospital admissions since 6 month Watchbromide visit. No bleeding, no falls. Medications and allergies reconciled. Nette Jeff NP updated and in to see him. Labs drawn Modified Winifred Scale and The Holli Index were provided [...] [address] Steve Schmitt. Functional evaluation:the Holli Index. [place] [employer] Med Journal 1965;14:51-61.Used with permission. * Austen Jeff CNP - 03/28/2019 1:46 PM EDT [facility] [place] [facility] Patient Name: Nette Hammond MR #: [id number] : 1940 Physicians: Cedric Carr MD (Family) [...] SANDY closure with WATCHMAN Per history with QLI6IA3-NHGp score of 3 and HAS-BLED score of [...] drainage and left craniotomy in 2015. Heunderwent SADNY closure with WATCHMAN device 02/22/18. He presented to the structural heart clinic 09/11/18 for 1 year follow up. Pt denies hospital visits since he was last seen in the [facility]. He further denies bleeding events or CVA like symptoms. He denied any falls, does not use any assistive devices for ambulation. Primary judicial clerk: Dr. Ruth and PCP: Dr. Carr [...] Left Atrial Appendage Closure w/ Klepia or Billakantdeanne; Surgeon: Boy Austin MD; Location: [facility]; Service: Cardiovascular HERNIA REPAIR 1989 PROSTATE SURGERY [...] file Gets together: Not on file Attends christian service: Not on file Active member of [...] assessment with appropriate mood and affect. Nette Jeff MS, CEMENT AND CONCRETE PLANT WORKER-ENAMEL BUFFER Structural Heart Nurse Practitioner Structural [facility] Clinic: 03/28/2019 1:46 PM documented in this encounter* Jennifer Tan RN - 03/23/2020 10:07 AM EDT Labs received from [facility] and scanned into system. documented in this encounter Reason for Referral StatusReasonSpecialtyDiagnoses / ProceduresReferred By ContactReferred To ContactOpenCardiology Diagnoses Essential hypertension Other hyperlipidemia Vitamin D deficiency disease Chronic atrial fibrillation (HCC) Procedures EKG 12 Lead Kyle Ruth MD [address] [place] [address] StatusReasonSpecialtyDiagnoses / ProceduresReferred By ContactReferred To ContactOpenCardiology Diagnoses Essential hypertension Chronic atrial fibrillation Procedures EKG 12 Lead Kyle Ruth MD [address] [place] [address] SpecialtyDiagnoses / ProceduresReferred By ContactReferred To ContactPhysical Therapy Diagnoses Generalized weakness At risk for falling Procedures [place] OFFICE/OUTPATIENT [facility] MDM 60 MINUTES Cedric Carr MD [address] [place] [address] Tish Yañez, KADEN Referral IDStatusReasonStart DateExpiration DateVisits RequestedVisits [id number] Specialty Services Required / Additional Source Comments (unrecognized sect ion and content) No Status Records FoundNo Status Records FoundNo Status Records FoundNo Status Records FoundNo Status Records FoundNo Status Records FoundNo Status Records FoundNo Status Records FoundNo Status Records FoundNo Status Records Found INFORMATION SOURCE (unrecogn ized section and content) DATE CREATED AUTHOR 01/28/2018 [facility] DATE CREATED AUTHOR AUTHOR'S ORGANIZ ATION 02/07/2018 [facility] DATE CREATED AUTHOR AUTHOR'S ORGANIZ ATION 03/23/2020 [facility] DATE CREATED AUTHOR AUTHOR'S ORGANIZ ATION 05/02/2020 [facility] DATE CREATED AUTHOR AUTHOR'S ORGANIZ ATION 11/06/2020 [facility] DATE CREATED AUTHOR AUTHOR'S ORGANIZ ATION 02/05/2022 [facility] DATE CREATED AUTHOR AUTHOR'S ORGANIZ ATION 03/26/2023 [facility] DATE CREATED AUTHOR AUTHOR'S ORGANIZ ATION 10/28/2024 [facility] DATE CREATED AUTHOR AUTHOR'S ORGANIZ ATION 12/28/2024 [facility] DATE CREATED AUTHOR AUTHOR'S ORGANIZ ATION 02/25/2025 [facility] Casper Farrell MD - 02/22/2018 9:22 AM EDT H&P Notes (unrecognized sect ion and content) INTERVAL HISTORY AND PHYSICAL Patient Name: Nette Hammond Sr. Admit Date: [id number] MR #: [id number] : 1940 The H&P has been reviewed and the patient has been examined. I concur with the findings of the H&P. There are no significant changes. It is appropriate to proceed with the planned procedure. Sedation Plan: Deep ASA Classification: 3 - Patient with severe systemic disease Mallampati Score: Not applicable Casper Bustos MD 02/22/2018 9:22 AM * Juaquin Jeffjuan david DREW Perdue - 02/21/2018 3:56 PM EDT Formatting of this note may be different from the original. Structural Heart Evaulation Patient Name: Nette Hammond Sr. MR #: [id number] : 1940 Physicians: Cedric Carr MD (Family); No ref. provider found (Referring) Perpetual Assessment: Nette Hammond Sr. is a 77 y.o. male with a past medical history significantfor paroxysmal atrial fibrillation, hypertension, hyperlipidemia and bilateral subdural hematomas s/p burrhole drainage/Left craniotomy in 2016 at [facility] who presented to the structural heart clinic from home for WATCHMAN PAT. Assessment and Plan: Assessment & Plan: Paroxysmal atrial fibrillation: Nette R Hammond Sr. is a 77 y.o. male [...] but has stop in preporation for planned WATCHMAN02/22/2018 - Completed Shared Decision Making Interaction with Patient regarding R/B/A of AC: Completed - Shared decision making interaction with independent non-interventional physician: Dr. Thomson - Mcc anticoagulation is indicated as evidenced by a RMZ0NO2-OBIu score of 3. - Increased risk for bleeding as evidenced by a HAS-BLED score of 3 - Discussed R/B/A of left atrial appendage closure with WATCHMAN as an alternative to halfway anticoagulation. - Patient prefers general anesthesia Watchman implant is recommended to be followed by OAC/ASA 81mg for +/-45 days. If follow up RAYMOND hasno/minimal device leak, to be transitioned to DAPT with clopidogrel 75mg/ASA 81 mg, to continue fora total of 6 months from the original [...] by physicians that have received the recommended agriscience technology instructor training and have met the minimum qualifications [...] hematomas s/p burrhole drainage in 2016 at [facility] who presented to the structural heart clinic from home for WATCHMAN evaluation. History obtained per patient and his son. The patient reported a longstanding history of atrial fibrillation and previously followed with Dr. Olivas (EP) at [facility]. He underwent successful cardioversion in 2011 and was on Coumadin until 12/2015 when he sustained spontaneous bilateral subdural hematomas. No traumatic injury per patient but he was doing some renovations on a house in the 90 degree heat lifting heavy items per son. He was admitted to [facility] at that time and underwent bilateral burrhole drainage per Dr. Joshi (neurosurgery). He had recurrent bleeding 03/2016 and wasagain hospitalized and underwent Left frontal craniotomy and drainage of subdural hematoma with drain placement. Pt reports that he has followed up with his neurosurgeon in [place] and he has been given the go ahead to resume Eliquis for this procedure. He was referred per his primary judicial clerk (Dr. Thomson) to the structural heart clinic for Watchman evaluation. At baseline, the patient lives in a home with his and is the primary caregiver for his 54 yearold son who is developmentally disabled. He is [...] Classification: STROKE AND BLEEDING RISK SCORING SYSTEMS [id number] THOMAS-BLED score RISK FACTOR SCORE PRESENT RISK [...] disease (previous 1 E Elderly 1 yes MN, arterial disease or no D Drugs 1 [...] 2 (two) times a day Take 5 mgPO BID for 21 days. atorvastatin (LIPITOR) 10 [...] 2 (two) times a day Take 5 mgPO BID for 21 days. ATORVASTATIN (LIPITOR) 10 [...] Resp 16 Wt 71.2 kg (157 lb) RaG454% BMI 23.87 kg/m General: No acute distress. [...] assessment with appropriate mood and affect. Nette Jeff MS, CEMENT AND CONCRETE PLANT WORKER-ENAMEL BUFFER Structural Heart Nurse Practitioner Structural [facility] Clinic: [...] willbe forwarded to his PCP for further * Assessment & Plan Note - Talisha Bush CNP - 04/06/2018 10:16 AM EDT Associated Problem(s): PAF (paroxysmal atrial fibrillation) (HCC) Per history with PHQ6EJ0-WFZx score of 3 and HAS-BLED score of [...] (08/22/18). Aspirin 81 mg will continue indefinitely. in this encounter* Quick Note - Joey Fischer MD - 04/06/2018 11:25 AM EDT INTERVAL HISTORY AND PHYSICAL Patient Name: Nette Hammond Admit Date: 04/06/2018 MR #: [id number] : 1940 The H&P has been reviewed [...] transesophageal echo with the patient and available family.Specifically, I reviewed the risks of (not limited [...] for Visit (unrecogniz ed section and content) ReasonCommentsHeart Problem1 year s/p WatchmanReasonCommentsAnxietyReason CommentsFollow-upReasonCommentsFallSpecialtyDiagnoses / ProceduresReferred By ContactReferred To Contact Diagnoses Lumbar compression fracture ([facility]) Jewel Vail MD [facility], [id number] [place] [address] Phone: tel: fax: Referral IDStatusReasonStart DateExpiration DateVisits RequestedVisits [id number] Care Teams (unrecognized sec tion and content) Team MemberRelationshipSpecialtyStart DateEnd Date Cedric Carr MD [address] [place] [address] (Fax) PCP - GeneralFamily Medicine10/18/22 Cedric Carr MD [address] [place] [address] (Fax) PCP - ACO [facility]03/11/23Team MemberRelationshipSpecialtyStart DateEnd Date Cedric Carr MD [address] [place] [address] (Fax) PCP - GeneralFamily Medicine10/18/22 Cedric Carr MD [address] [place] [address] (Fax) PCP - ACO [facility]03/11/23Team MemberRelationshipSpecialtyStart DateEnd Date Cedric Carr MD [address] [place] [address] (Fax) PCP - GeneralFamily Medicine10/18/22 Cedric Carr MD [address] [place] [address] (Fax) PCP - [facility]CO [facility]03/11/23Team MemberRelationshipSpecialtyStart DateEnd Date Cedric Carr MD [address] [place] [phone] (Fax) PCP - GeneralFamily Medicine10/18/22 Cedric Carr MD [address] [place] [phone] (Fax) PCP - [facility]CO [facility]03/11/23Team MemberRelationshipSpecialtyStart DateEnd Date Cedric Carr MD [address] [place] [phone] (Fax) PCP - GeneralFamily Medicine10/18/22 Cedric Carr MD [address] [place] [phone] (Fax) PCP - [facility]CO [facility]03/11/23Team MemberRelationshipSpecialtyStart DateEnd Date Cedric Carr MD [address] [place] [address] (Fax) PCP - GeneralFamily Medicine10/18/22 Cedric Carr MD [address] [place] [address] (Fax) PCP - ACO [facility]03/11/23Team MemberRelationshipSpecialtyStart DateEnd Date Cedric Carr MD [address] [place] [address] (Fax) PCP - GeneralFamily Medicine10/23/24Team MemberRelationshipSpecialtyStart DateEnd Date Cedric Carr MD [address] [facility] [address] [place] [address] (Fax) [facility]/18/22 Cedric Carr MD [address] [place] [address] (Fax) PCP [facility]03/11/23Te MemberRelationshipSpecialtyStart DateEnd Date Cedric Carr MD [address] [facility] [address] [place] [address] (Fax) PCP - [facility] Medicine10/18/22 Cedric Carr MD [address] [place] [address] (Fax) PCP - O [facility]03/11/23 Mel Gann, FELECIA [address] [place] [address] Registered NurseFamily Medicine/ Scheduled Active and Recently Administ ered Medications (unrecognized section and content) Medication Order// acetaminophen (TYLENOL EXTRA STRENGTH) tablet 1,000 mg 1,000 mg, oral, Every 6 hours scheduled, First dose on Mon10/23/24 at 0600, ED to IP Admission * 0146 (Given - Provider: Meenakshi Smith, RN) * 0754 (Given - Provider: Jean Barbosa, RN) * 1205 (Given - Provider: Jean Barbosa, RN) * 1717 (Given - Provider: Jean Barbosa, RN) * 2316 (Not Given - Provider: Stephanie Hernandez RN - Reason: Patient/family refused) * 0517 (Given - Provider: Stephanie Hernandez RN) * 1156 (Given - Provider: Jean Barbosa, FELECIA) * 1629 (Given - Provider: Jean Barbosa, RN) * 0000 (Not Given - Provider: Rachel Ibarra, RN - Reason: Patient/family refused) * 0528 (Given - Provider: Rachel Ibarra RN) * 1111 (Given - Provider: Desiree Arciniega, FELECIA) * 1800 (Due) ALPRAZolam (XANAX) tablet 1 mg (CANCELED) 1 mg, oral, Daily, First dose on Helen 10/24/24 at 1230, Look-alike/sound-alike medication - verify indication for use. * 1317 (Given - Provider: Jean Barbosa, FELECIA) * 0745 (Given - Provider: Jean Barbosa, RN) amLODIPine (NORVASC) tablet 5 mg 5 mg, oral, Daily, First dose on Mon10/23/24 at 0930, Look-alike/sound-alike medication - verify indication for use. Avoid grapefruit juice. * 0754 (Given - Provider: Jean Barbosa, FELECIA) * 0746 (Given - Provider: Jean Barbosa, RN) * 0829 (Given - Provider: Desiree Arciniega, RN) enoxaparin (LOVENOX) syringe 30 mg 30 mg, subcutaneous, Every 12 hours, First dose on Helen 10/24/24 at 0600, Look-alike/sound-alike medication - verify indication for use. * 0608 (Given - Provider: Rachel Ibarra RN) * 2120 (Given - Provider: Stephanie Hernandez RN) * 0746 (Given - Provider: Jean Barbosa, FELECIA) * 2138 (Given - Provider: Rachel Ibarra RN) * 0829 (Given - Provider: Desiree Arciniega RN) * 2100 (Due - Provider: An[facility] Mall[facility]) escitalopram (LEXAPRO) tablet 20 mg 20 mg, oral, Daily, First dose on Helen 10/24/24 at 0900, Look-alike/sound-alike medication - verify indication for use. * 0927 (Given - Provider: Jean Barbosa RN) * 0745 (Given - Provider: Jean Barbosa RN) * 0829 (Given - Provider: Desiree Arciniega RN) losartan (COZAAR) tablet 50 mg 50 mg, oral, Daily, First dose on Helen 10/24/24 at 0900, Look-alike/sound-alike medication - verify indication for use. * 0927 (Given - Provider: Jean Barbosa RN) * 0746 (Given - Provider: Jean Barbosa RN) * 0829 (Given - Provider: Desiree Arciniega RN) methocarbamoL (ROBAXIN) tablet 500 mg (CANCELED) 500 mg, oral, 4 times daily, First dose on Helen 10/24/24 at 1730 * 1755 (Given - Provider: Jean Barbosa RN) * 2119 (Given - Provider: Stephanie Hernandez RN) * 1015 (Given - Provider: Jean Barbosa RN) sennosides-docusate sodium (SENOKOT-S) 8.6-50 mg 2 tablet 2 tablet, oral, Nightly, First dose on Mon10/23/24 at 2200, ED to IP Admission, Administer when tolerating diet. Hold medication for diarrhea. * 2119 (Given - Provider: Stephanie Hernandez RN) * 2136 (Given - Provider: Rachel Ibarra RN) * 220 (Due) sodium chloride 0.9 % flush 3 mL 3 mL, intravenous, Every 12 hours scheduled, First dose on Mon10/23/24 at 0900, ED to IP Admission * 0754 (Given - Provider: Jean Barbosa RN) * 2100 (Given - Provider: Stephanie Hernandez, RN) * 0746 (Given - Provider: Jean Barbosa, RN) * 2138 (Given - Provider: Rachel Ibarra, RN) * 0829 (Given - Provider: Desiree Arciniega, FELECIA) * 2100 (Due) Medication Order// ALPRAZolam (XANAX) tablet 1 mg 1 mg, oral, Daily PRN, anxiety, Starting on Mon10/26/24 at 0000, Look-alike/sound-alike medication - verify indication for use. dextrose (GLUTOSE) 40 % gel 15 g 15 g, oral, As needed, low blood sugar, blood glucose less than 70 mg/dL, Starting on Mon10/23/24 at 0518, ED to IP Admission, If patient conscious and taking PO. If blood glucose is not greater than70 mg/dL after initial treatment, repeat treatment. dextrose 50 % in water (D50W) 50% solution 25 mL 25 mL, intravenous, As needed, low blood sugar, blood glucose less than 70 mg/dL and unconscious orNPO with IV access, Starting on Mon10/23/24 at 0518, ED to IP Admission, Push over 1-3 minutes STAT. If conscious and not NPO, immediately follow with meal tray or high protein (7 grams) snack if tray not available. If NPO, initiate 5% dextrose in water at 100 mL/hr and contact prescriber for additional orders. If blood glucose is not greater than 70 mg/dL after initial treatment, repeat treatment. VESICANT (RED) Warning: HYPERTONIC solution. glucagon HCL injection 1 mg 1 mg, intramuscular, As needed, low blood sugar, blood glucose less than 70 mg/dL and unconscious or NPO without IV access., Starting on Mon10/23/24 at 0518, ED to IP Admission, If conscious and not NPO, immediately follow with meal tray or high protein (7Grams) snack if tray not available. If NPO,initiate IV 5% Dextrose/Water at 100 mL/hr and contact prescriber for additional orders. If blood glucose is not greater than 70 mg/dL after initial treatment, repeat treatment. methocarbamoL (ROBAXIN) tablet 500 mg 500 mg, oral, 4 times daily PRN, muscle spasms, Starting on Mon10/25/24 at 1400 * 1940 (Given - Provider: Rachel Ibarra RN) ondansetron (PF) (ZOFRAN) injection 4 mg 4 mg, intravenous, Every 6 hours PRN, nausea, Starting on Mon10/23/24 at 0518, ED to IP Admission, Intravenous administration preferred to be given over 2-5 minutes. oxyCODONE (ROXICODONE) immediate release tablet 2.5 mg(Linked Group 1) 2.5 mg, oral, Every 4 hours PRN, moderate pain - pain scale 4-6, Starting on Mon10/23/24 at 0518, ED to IP Admission, The oral route is preferred for patients tolerating oral intake without nausea and vomiting. IV pain medications should be used if the oral route is ineffective for symptom control or if patient unable to take medications orally. Look-alike/sound-alike medication - verify indication for use. Immediate release. * 0932 (Given - Provider: Jean Barbosa RN) * 1632 (Given - Provider: Jean Barbosa RN) oxyCODONE (ROXICODONE) immediate release tablet 5 mg(Linked Group 1) 5 mg, oral, Every 4 hours PRN, severe pain - pain scale 7-10, Starting on Mon10/23/24 at 0518, ED to IP Admission, The oral route is preferred for patients tolerating oral intake without nausea and vomiting. IV pain medications should be used if the oral route is ineffective for symptom control or if patient unable to take medications orally. Look-alike/sound-alike medication - verify indication for use. Immediate release. * 0932 (See Alternative - Provider: Jean Barbosa RN) * 1632 (See Alternative - Provider: Jean Barbosa, RN) sodium chloride 0.9 % flush 3 mL 3 mL, intravenous, As needed, line care, before and after each intermittent use, Starting on Mon10/23/24 at 0518, ED to IP Admission Order Group 1: oxyCODONE (ROXICODONE) immediate release tablet 2.5 mgJump to med 2.5 mg, oral, Every 4 hours PRN, moderate pain - pain scale 4-6, Starting on Mon10/23/24 at 0518, ED to IP Admission, The oral route is preferred for patients tolerating oral intake without nausea and vomiting. IV pain medications should be used if the oral route is ineffective for symptom control or if patient unable to take medications orally. Look-alike/sound-alike medication - verify indication for use. Immediate release. Or oxyCODONE (ROXICODONE) immediate release tablet 5 mgJump to med 5 mg, oral, Every 4 hours PRN, severe pain - pain scale 7-10, Starting on Mon10/23/24 at 0518, ED to IP Admission, The oral route is preferred for patients tolerating oral intake without nausea and vomiting. IV pain medications should be used if the oral route is ineffective for symptom control or if patient unable to take medications orally. Look-alike/sound-alike medication - verify indication for use. Immediate release. FOR RECORDS PERTAINING TO PATIENTS WHO ARE [...] BE BASED ON THE PRIMARY CLINICAL RECORDS. [employer] provides no warranty or guarantee of the accuracy or completeness of information in this document.
[2025-05-12 16:28] LABS: SARS-CoV-2 Ag NEGATIVE (NEGATIVE)
[2025-05-12 16:32] LABS: Alanine Aminotransferase 30 U/L (16-63); Albumin Globulin Ratio 1.0; Albumin Level 3.4 g/dL (3.4-5.0); Alkaline Phosphatase 81 U/L (46-116); Anion Gap 10.7; Aspartate Amino Transferase 18 U/L (15-37); Blood Urea Nitrogen 17.0 mg/dL (7.0-18.0); Calcium 8.6 mg/dL (8.5-10.1); Carbon Dioxide 28.7 mmol/L (21.0-32.0); Chloride 100 mmol/L (98-107); Estimated GFR (African America >60 (>=60 mL/min/1.73m^2); Estimated GFR (Non-African Ame 52 (>=60 mL/min/1.73m^2); Globulin 3.4 g/dL; Glucose 114 mg/dL (74-106); Potassium 4.4 mmol/L (3.5-5.1); Sodium 135 mmol/L (136-145); Total Protein 6.8 g/dL (6.4-8.2)
== END 2025-05-12 17:48 | disposition home or self-care (01) ==
PROVIDERS: Emergency Provider Emergency Medicine; PCP Family Medicine
DX: J04.0 Acute laryngitis (principal); Z87.891 Personal history of nicotine dependence
CPT/HCPCS: 36415; 71045; 80053; 85025; 87804; 87811; 99285